=== PATIENT | female | born 1935 | race Caucasian/White ===

== ENCOUNTER → 2016-12-01 | Outpatient (CLI) | payer BC ==
[~2016-12-01] MED LIST: ATOR-22 PO; CALC0.2510 PO; CHOL1000 PO; CHOL100010 PO; CYAN3INJ IM; CYNI1000 INJ; ETHA1TAB3 PO; GABA-112 PO; HYDR200T5 PO; LISI10TA PO; MAGN250T22 PO; METH-589 PO; METO25TA56 PO; NAPR1TAB9 PO; PEGSOL8 PO; PRED-301 PO; TRAM-10 PO; [UNRECOGNIZED DRUG - OTHER] PO
[2016-12-01 13:46] LABS: BASO % 0.3 %; BASO ABS # 0.04 K/uL (0-0.2); COMPLETE YES; EOS % 0.7 %; HEMATOCRIT 35.1 % (37-47); IG% 0.5 %; LYMPH % 9.6 %; LYMPH ABS # 1.26 K/uL (1.2-3.4); MEAN CORPUSCULAR HEMOGLOBIN 27.8 pg (25-34); MEAN CORPUSCULAR HGB CONC 31.6 g/dl (32-36); MEAN PLATELET VOLUME 10.3 fL (7.4-10.4); MONO % 6.5 %; NEUT % 82.4 %; PLATELET COUNT 312 K/uL (130-400); RED BLOOD COUNT 3.99 M/uL (4.2-5.4); WHITE BLOOD COUNT 13.15 K/uL (4.8-10.8)
[2016-12-01 14:23] LABS: ALT/SGPT 21 U/L (12-78); AST/SGOT 13 U/L (15-37); BLOOD UREA NITROGEN 58 mg/dl (7-18); CARBON DIOXIDE 27 mmol/L (21-32); CHLORIDE 101 mmol/L (98-107); GLUCOSE 110 mg/dl (70-99); POTASSIUM 3.8 mmol/L (3.5-5.1); SODIUM 140 mmol/L (136-145)
[2016-12-01 14:26] LABS: ALB/GLOB RATIO 1.4 (0.9-2); ALKALINE PHOSPHATASE 58 U/L (45-117)
[2016-12-01 14:37] LABS: ESTIMATED AVERAGE GLUCOSE 123 mg/dl; HA1C FLAG Normal (Normal)
== END | disposition home or self-care (01) ==
LOC: C.LAB1850 12:23
PROVIDERS: ATTEND Internal Medicine
DX: D64.9 Anemia, unspecified (principal); E78.5 Hyperlipidemia, unspecified; R73.09 Other abnormal glucose; E53.8 Deficiency of other specified B group vitamins

== ENCOUNTER → 2017-01-07 | Outpatient (CLI) | payer BC ==
[2017-01-07 10:24] LABS: BASO % 0.4 %; BASO ABS # 0.04 K/uL (0-0.2); COMPLETE YES; EOS % 1.5 %; HEMATOCRIT 34.6 % (37-47); IG% 0.8 %; LYMPH % 25.4 %; LYMPH ABS # 2.33 K/uL (1.2-3.4); MEAN CELL VOLUME 86.7 fL (80-100); MEAN CORPUSCULAR HEMOGLOBIN 27.6 pg (25-34); MEAN CORPUSCULAR HGB CONC 31.8 g/dl (32-36); MEAN PLATELET VOLUME 9.8 fL (7.4-10.4); MONO % 10.8 %; NEUT % 61.1 %; PLATELET COUNT 299 K/uL (130-400); RED BLOOD COUNT 3.99 M/uL (4.2-5.4); WHITE BLOOD COUNT 9.17 K/uL (4.8-10.8)
[2017-01-07 10:39] LABS: CHOLESTEROL/HDL RATIO 3.1
== END | disposition home or self-care (01) ==
LOC: C.LAB1850 09:34
PROVIDERS: ATTEND Internal Medicine
DX: Z00.00 Encounter for general adult medical examination without abnormal findings (principal); E78.5 Hyperlipidemia, unspecified; D72.829 Elevated white blood cell count, unspecified; E53.8 Deficiency of other specified B group vitamins

== ENCOUNTER → 2017-03-01 | Outpatient (CLI) | payer BC ==
[~2017-03-01] MED LIST changes: +ACET-1256 PO; +BIOT1TAB5 PO; +DENO60SO INJ; +FLUO5OIL OTL; +LISI-461 PO; +LORA10TA51 PO; +MOME6000 NAE; +MULT60CA PO; +OXYC1TAB3 PO; +[UNRECOGNIZED DRUG - CODE] PO
[2017-03-01 13:28] LABS: BLOOD UREA NITROGEN 67 mg/dl (7-18); BUN/CREATININE RATIO 41.7 (10-20); CARBON DIOXIDE 27 mmol/L (21-32); CHLORIDE 102 mmol/L (98-107); GLUCOSE 97 mg/dl (70-99); POTASSIUM 3.6 mmol/L (3.5-5.1); SODIUM 140 mmol/L (136-145)
[2017-03-01 13:31] LABS: CALCIUM 9.9 mg/dl (8.5-10.1)
== END | disposition home or self-care (01) ==
LOC: C.LAB1850 11:05
PROVIDERS: ATTEND Physician Assistant
DX: I50.32 Chronic diastolic (congestive) heart failure (principal)

== ENCOUNTER 2017-03-12 01:17 | Inpatient (IN) | payer BC, OTHER ==
[2017-03-12] VITALS (53 sets, daily range): BP systolic 44–108; BP diastolic 36–63; PULSE 63–116; TEMP 36.3–36.9; O2SAT 70–100; Ht 157.5 cm; Wt 87.6 kg
[~2017-03-12] VITALS: Ht 157.5 cm; Wt 87.6 kg
[~2017-03-12 01:17] MED LIST changes: -ACET-1256 PO; -BIOT1TAB5 PO; -CHOL1000 PO; -CYNI1000 INJ; -DENO60SO INJ; -FLUO5OIL OTL; -GABA-112 PO; -HYDR200T5 PO; -LISI-461 PO; -LORA10TA51 PO; -MOME6000 NAE; -MULT60CA PO; -NAPR1TAB9 PO; -OXYC1TAB3 PO; -[UNRECOGNIZED DRUG - CODE] PO
[2017-03-12] MEDS ORDERED: FENTANYL CITRATE INJ 50 MCG/1 ML 2 ML VIAL ONE (01:48)
[2017-03-12] MEDS ORDERED: SODIUM CHLORIDE 0.9% 1000ML 1,000 ML IV STA (01:49)
[2017-03-12 01:57] LABS: BASO % 0.1 %; BASO ABS # 0.02 K/uL (0-0.2); COMPLETE YES; EOS % 0.7 %; HEMATOCRIT 41.5 % (37-47); IG% 0.3 %; LYMPH % 9.2 %; LYMPH ABS # 1.26 K/uL (1.2-3.4); MEAN CELL VOLUME 87.4 fL (80-100); MEAN CORPUSCULAR HEMOGLOBIN 27.6 pg (25-34); MEAN CORPUSCULAR HGB CONC 31.6 g/dl (32-36); MEAN PLATELET VOLUME 9.9 fL (7.4-10.4); MONO % 1.7 %; PLATELET COUNT 310 K/uL (130-400); RED BLOOD COUNT 4.75 M/uL (4.2-5.4); WHITE BLOOD COUNT 13.72 K/uL (4.8-10.8)
--- NOTE | 2017-03-12 02:06 | EMERGENCY ROOM VISIT NOTE ---
History Report prepared by Yovanny: Tenisha Peña Under the Supervision of: Dr. Ariana Tang D.O. First contact with patient: 01:40 Chief Complaint: ABDOMINAL PAIN Stated Complaint: ABDOMINAL PAIN Nursing Triage Summary: Pt started to have abdominal pain about 5 hours ago with nausea and vomiting. Pt says she just felt sick all day. Pt has history of ischemic colitis. Pt states she is not regular with BM and has to take golytley to have BM. Pt took Golytle 5 hours ago for a BM and that is when she started to have abdominal pain and spasms. Pt had vomited in ambulance. History of Present Illness The patient is an 81 year old female who presents to the Emergency Room with complaints of persistent abdominal pain that began five hours prior to arrival. She currently rates her discomfort as a 10/10 in severity. The patient describes her discomfort as a spasm. 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 Per nursing staff, the patient's last bowel movement was Tuesday which is normal. Nursing staff reports that the patient drank go lightly this evening which typically works right away, but states that she developed nausea, vomiting, and abdominal pain. The patient's son notes that the patient has a history of a cholecystectomy, back surgery, bladder prolapse, subtotal gastrectomy, and an appendectomy. The patient notes a history of diverticulosis and partial small bowel obstructions. She notes that she has not been urinating well. Source of History: patient, family (son) Onset: five hours piror to arrival Position: abdomen Symptom Intensity: 10/10 Quality: other (spasm) Timing: other (persistent) Associated Symptoms: + nausea, + urinary symptoms (not urinating well), + vomiting Review of Systems See HPI for pertinent positives & negatives. A total of 10 systems reviewed and were otherwise negative. Past Medical & Surgical Medical Problems: (1) Appendectomy (2) Benign hypertension (3) C DIFF POA (4) Cholecystectomy (5) Chronic congestive heart failure (6) Colitis (7) Colonoscopy (8) Depression (9) dextroscoliosis (10) E COLI UTI POA (11) Gastroesophageal reflux disease (12) Hyperlipidemia (13) Hysterectomy (14) orthopedic surgery (15) Osteoporosis (16) PERSONAL HISTORY OF PEPTIC ULCER DISEASE (17) Pyelonephritis (18) renal disease (19) Sepsis (20) Vertigo Family History Cancer Gallbladder disease Heart disease Hypertension Social History Smoking Status: Never Smoker Alcohol Use: none Drug Use: none Marital Status: Housing Status: lives with family Occupation Status: retired Current/Historical Medications Scheduled , 10 MG PO QID Atorvastatin (Lipitor), 20 MG PO HS Calcitriol (Rocaltrol Cap), 0.25 MCG PO QAM Cholecalciferol (Vitamin D3), 3,000 UNIT PO DAILY Cyanocobalamin (Cyanocobalamin), 1 DOSE INJ MONTHLY Ethacrynic Acid (Edecrin), 75 MG PO QAM Lisinopril (Prinivil), 10 MG PO HS Magnesium Oxide (Magnesium), 250 MG PO QAM Methimazole (Methimazole ), 2.5 MG PO QAM Metoprolol Tartrate (Lopressor) (Lopressor), 12.5 MG PO BID Peg [id number] Bicarb-Sod Ch (Golytely), 1-3 DOSE PO QPM Prednisone (Prednisone), 5 MG PO QAM Scheduled PRN Naproxen (Aleve), 220 MG PO UD PRN for Pain Tramadol (Ultram), 50 MG PO HS PRN for Pain Allergies Coded Allergies: Sulfa Drugs (Verified Allergy, Mild, SULFA-BASED DIURETICS-SEVERE RASH, 03/12/17) ALL DIURETICS, EXCEPT ALDACTONE, WHICH ARE SULFA BASED CAUSE SEVERE RASH Cefuroxime (Unverified Allergy, Unknown, INEFFECTIVE, 03/12/17) Ciprofloxacin (Unverified Allergy, Unknown, INEFFECTIVE, 03/12/17) Erythromycin (Verified Allergy, Unknown, SEVERE VOMITING, 03/12/17) Furosemide (Verified Allergy, Unknown, HIVES, SULFA ALLERGY TO LOOP DIURETICS, 03/12/17) Hydrochlorothiazide (Verified Allergy, Unknown, HIVES, 03/12/17) Levofloxacin (Unverified Allergy, Unknown, INEFFECTIVE, 03/12/17) Metoclopramide (Verified Allergy, Unknown, anxiety attacks, 03/12/17) Sulfa Antibiotics (Unverified Allergy, Unknown, HIVES AND ANAPHYLAXIS, 03/12) Meperidine (Verified Adverse Reaction, Unknown, INEFFECTIVE FOR PT, 03/12/17 ) INAFFECTIVE FOR PATIENT Physical Exam Vital Signs Date Time Temp Pulse Resp B/P Pulse Ox O2 Delivery O2 Flow Rate FiO2 03/12/17 06:10 73 18 55/38 96 Nasal Cannula 2.0 NIBP 03/12/17 05:45 77/48 03/12/17 05:42 65 22 97 Nasal Cannula 2.0 03/12/17 05:32 72/41 03/12/17 05:30 03/12/17 05:28 53/34 89 Room Air 03/12/17 05:12 70 19 03/12/17 05:07 71 03/12/17 05:00 88/55 03/12/17 04:59 89/58 03/12/17 04:57 72 18 03/12/17 04:50 70/46 03/12/17 04:45 70/47 03/12/17 04:42 71 16 03/12/17 04:40 70/51 03/12/17 04:31 84/51 03/12/17 04:27 72 25 03/12/17 04:15 78/58 03/12/17 04:12 75 95 03/12/17 04:09 76/57 03/12/17 04:02 73/43 03/12/17 03:57 75 18 95 03/12/17 03:52 73 20 94 Nasal Cannula 2.0 03/12/17 03:45 94/63 03/12/17 03:37 70 24 100 03/12/17 03:30 85/58 03/12/17 03:22 63 22 99 03/12/17 03:15 85/55 03/12/17 03:07 74 17 98 03/12/17 03:05 71/50 03/12/17 03:02 73/46 03/12/17 03:00 /55 03/12/17 02:52 73 22 03/12/17 02:47 74 16 98 Room Air 03/12/17 02:45 86/55 03/12/17 02:35 97/53 03/12/17 02:17 69 23 98 03/12/17 02:15 80/59 93 Nasal Cannula 3.0 03/12/17 02:02 69 19 86 Room Air 03/12/17 02:00 87/45 03/12/17 01:47 75 21 94 03/12/17 01:46 71/49 03/12/17 01:32 73 25 92 03/12/17 01:30 87/56 03/12/17 01:28 84/57 03/12/17 01:27 77 03/12/17 01:25 86/58 03/12/17 01:22 36.2 76 18 86/58 93 Room Air Physical Exam General: Appears very uncomfortable, diaphoretic, skin is henry and cold. HEENT: Head - normocephalic and atraumatic Pupils are equal, round, and reactive to light. Extraocular eye muscles are intact, and sclera are anicteric. Nose - moist nasal mucosa without discharge. Mouth - moist buccal mucosa. Oropharynx is nonerythematous and there is no tonsillar exudate or edema noted. Neck: Supple; no JVD, nuchal rigidity, cervical lymphadenopathy, or auscultated bruits. Heart: Regular rate and rhythm. There is a normal S1 and S2 with no murmurs, clicks, or gallops appreciated. Lungs: Clear to auscultation bilaterally with no wheezes, rales, or rhonchi. Abdomen: Guarding noted with exquisite tenderness to palpation in the epigastrium. Soft, nondistended, with good bowel sounds. There are no palpable pulsatile masses or hepatosplenomegaly. There is no rigidity, or rebound noted. Extremities: No evidence of cyanosis, clubbing, or edema. There are easily palpable peripheral pulses. Skin: warm and dry with good turgor and no rashes. Medical Decision & Procedures ER Provider Diagnostic Interpretation: CT results as stated below per my review and radiologist interpretation: CT Abdomen and Pelvis: Compared to CT abdomen and pelvis 05/18/2016. Evidence of colitis with colonic wall thickening and pericolonic edema, greatest at the splenic flexure and descending colon. There is associated free fluid. No free air. No evidence of pneumatosis or portal venous gas. The colon is distended with air and liquid stool. Colonic diverticulosis without CT evidence of acute diverticulitis. No bowel obstruction. The appendix is not reliably identified. Postoperative changes of the gastroesophageal junction. Cholecystectomy. No CT evidence of acute pancreatitis. No urinary obstruction. 5.7 centimeter right adnexal low-density mass, increased compared to prior. Followup to exclude malignancy may be useful. Multiple compression deformities in the thoracic spine. Radiologist: Paulina Larkin MD Study ready at 0337 and initial results transmitted at 0347. Laboratory Results Test 03/12/17 01:45 03/12/17 01:57 03/12/17 03:15 Creatine Kinase MB 3.0 ng/ml (0.5-3.6) Creatine Kinase MB Ratio 3.5 (0-3.0) Bedside Lactic Acid Venous 2.16 mmol/L (0.90-1.70) Urine Color DK YELLOW Urine Appearance CLEAR (CLEAR) Urine pH 6.0 (4.5-7.5) Urine Specific [place] 1.012 (1.000-1.030) Urine Protein NEG (NEG) Urine Glucose (UA) NEG (NEG) Urine Ketones NEG (NEG) Urine Occult Blood NEG (NEG) Urine Nitrite NEG (NEG) Urine Bilirubin NEG (NEG) Urine Urobilinogen NEG (NEG) Urine Leukocyte Esterase TRACE (NEG) Urine WBC (Auto) 5-10 /hpf (0-5) Urine RBC (Auto) 0-4 /hpf (0-4) Urine Hyaline Casts (Auto) 1-5 /lpf (0-5) Urine Epithelial Cells (Auto) 10-20 /lpf (0-5) Urine Bacteria (Auto) 4+ (NEG) Date/Time Source Procedure Growth Status 03/12/17 00:00 Nasal MRSA DNA Surveillance Screen - Final Specimen Negative for MRSA by DNA Probe Complete 03/12/17 06:40 Stool C.difficile Toxin B Gene (PCR) - Final Positive for C. difficile toxin B gene Complete Laboratory results per my review. Medications Administered Medications (Trade) Dose Ordered Sig/[place] Route Start Time Stop Time Status Last Admin Dose Admin Fentanyl Citrate 100 mcg 100 mcg STK-MED ONCE .ROUTE 03/12/17 01:48 03/12/17 01:49 DC 03/12/17 01:40 50 MCG Sodium Chloride 1,000 ml @ 999 mls/hr Q1H1M STAT IV 03/12/17 01:49 03/12/17 02:17 DC 03/12/17 02:03 999 MLS/HR Sodium Chloride (Nss 500ml) 500 ml @ 999 mls/hr Q31M STAT IV 03/12/17 02:16 03/12/17 02:46 DC 03/12/17 02:37 999 MLS/HR Fentanyl Citrate (Fentanyl Inj) 50 mcg NOW STAT IV 03/12/17 03:04 03/12/17 03:05 DC 03/12/17 03:45 25 MCG Ondansetron HCl 4 mg 4 mg STK-MED ONCE .ROUTE 03/12/17 04:52 03/12/17 04:53 DC 03/12/17 04:52 4 MG Sodium Chloride (Nss 500ml) 500 ml @ 999 mls/hr Q31M IV 03/12/17 06:45 03/12/17 08:04 DC 03/12/17 08:22 999 MLS/HR Tramadol HCl (Ultram Tab) 50 mg HS PRN PO 03/12/17 07:00 04/11/17 06:59 03/12/17 08:37 50 MG Procedure The patient was treated with Fentanyl Inj 100 mcg IV, Sodium Chloride 1000 ml @ 999 mls/hr IV, Sodium Chloride 500 ml @ 999 mls/hr IV, Fentanyl Inj 50 mcg IV. ECG Indication: abdominal pain Rate (beats per minute): 76 Rhythm: normal sinus Findings: no acute ischemic change, no ectopy Comparison ECG Date: 05/18/16 Change: no significant change ED Course 0142: Past medical records reviewed. The patient was evaluated in room A3. A complete history and physical exam was performed. An IV lock was initiated 0148: Ordered Fentanyl Inj 100 mcg IV. 0149: Ordered Sodium Chloride 1000 ml @ 999 mls/hr IV. 0211: I reevaluated the patient and she is still having a lot of pain. Her blood pressure is 85 mmHg systolically. The patient will go for CT scan of the abdomen/pelvis. 0216: Ordered Sodium Chloride 500 ml @ 999 mls/hr IV. 0300: I reevaluated the patient and she just arrived back from CT, but is having more pain. 0304: Ordered Fentanyl Inj 50 mcg IV. 0305: Per nursing staff the patient's blood pressure is 70 mmHg systolically. 0353: I reevaluated the patient and she is resting I discussed the exam findings with her and her family and I discussed the treatment plan. She verbalized complete understanding and agreement. She will be evaluated for further treatment. 0412: I reevaluated the patient and she is resting. 0415: I discussed the patients case with Dr. Velasco [facility]. He is going to evaluate the patient for further treatment. 0452: Per nursing staff the patient is nauseated and vomiting. Ordered Zofran Inj 4 mg IV 0633: I reevaluated the patient and she is fully awake but vomiting. Medical Decision The patient is an 81 year old female who presents to the ED with abdominal pain. Differential diagnosis includes ischemic colitis, small bowel obstruction , sepsis, hypovolemia, GI bleed. Lab interpretation: white count 13.7, stable H&H, 88% neutrophils, lactic acid 2.1, BUN 76, creatinine 1.9, normal troponin, normal LFTs, urinalysis trace leukocyte esterase 5-10 white cells 4+ bacteria. This is an 81-year-old female patient with a long history of episodes of ischemic colitis and mesenteric ischemia. She presents to the emergency department with complaints of sudden and severe onset of abdominal pain. The patient admits to having episodes of hypotension secondary to his episodes of ischemia. Her blood pressure this morning is quite low. The patient began to have continuous stooling. This was Hemoccult tested and was found to be negative. The patient has received IV crystalloid therapy to support her blood pressure but does have a history of diastolic heart failure. We discussed the possibility of starting the patient on pressors but or concerned about her cardiac standpoint. The patient is easily able to mentate through these episodes of hypotension. I discussed the case with the [facility] Hospitalist and they will evaluate the patient for further care. Consults Time Called: [phone] Consulting Physician: ANTOINETTE Gilbert Returned Call: [phone] I discussed the patients case with ANTOINETTE Gilbert. He is going to evaluate the patient for further treatment. Impression Primary Impression: Ischemic colitis Additional Impression: Hypotension Scribe Attestation The scribe's documentation has been prepared under my direction and personally reviewed by me in its entirety. I confirm that the note above accurately reflects all work, treatment, procedures, and medical decision making performed by me. Departure Information Dispostion Being Evaluated By Hospitalist Referrals RV. Mariano MD (PCP) Problem Qualifiers
[2017-03-12] MEDS ORDERED: SODIUM CHLORIDE 0.9% 500ML 500 ML IV STA (02:16)
[2017-03-12 02:20] LABS: ALT/SGPT 23 U/L (12-78); AST/SGOT 25 U/L (15-37); BLOOD UREA NITROGEN 76 mg/dl (7-18); BUN/CREATININE RATIO 39.9 (10-20); CALCIUM 9.7 mg/dl (8.5-10.1); CARBON DIOXIDE 23 mmol/L (21-32); CHLORIDE 104 mmol/L (98-107); GLUCOSE 132 mg/dl (70-99); MAGNESIUM 2.5 mg/dl (1.8-2.4); POTASSIUM 3.7 mmol/L (3.5-5.1); SODIUM 141 mmol/L (136-145)
[2017-03-12 02:26] LABS: ALKALINE PHOSPHATASE 211 U/L (45-117); CKMB/CK RATIO 3.5 (0-3.0)
[2017-03-12] MEDS ORDERED: CYNI1000 INJ (03:19)
[2017-03-12] MEDS ORDERED: CHOL1000 PO (03:20)
[2017-03-12] MEDS ORDERED: NAPR1TAB9 PO (03:20)
[2017-03-12 03:27] LABS: URINE APPEARANCE CLEAR (CLEAR); URINE BILIRUBIN NEG (NEG); URINE COLOR DK YELLOW; URINE NITRITE NEG (NEG); URINE SPECIFIC GRAVITY 1.012 (1.000-1.030); UROBILINOGEN NEG (NEG)
[2017-03-12 03:32] LABS: MANUAL MICROSCOPIC REQUIRED? NO; REVIEW REQ? NO
[2017-03-12] MEDS: FENTANYL CITRATE INJ 50 MCG/1 ML 2 ML VIAL IV STA (03:45)
[2017-03-12] MEDS ORDERED: ONDANSETRON INJ 2 MG/ML 2 ML VIAL ONE (04:52)
--- NOTE | 2017-03-12 06:19 | DIAGNOSTIC IMAGING REPORT ---
ABDOMEN AND PELVIS CT WITHOUT CONTRAST CT DOSE: 568.71 mGy.cm HISTORY: Pain. Edema. eval for ischemic colitis TECHNIQUE: Multiaxial CT images of the abdomen and pelvis were performed without contrast. COMPARISON STUDY: 05/18/2016 FINDINGS: Minimal dependent basilar atelectasis. Generalized colonic distention. Moderate pericolonic infiltrative change. No evidence of pneumatosis. Liver spleen and pancreas are grossly unremarkable. Multiple bilateral renal cysts are present. There is no evidence for hydronephrosis. Bladder suspension procedure. Distended bowel loop versus a cystic process in the region of the right ovary. This measures 5.1 cm. Chronic sigmoid diverticulosis. IMPRESSION: 1. Generalized colonic colitis findings.. 2. No evidence for abscess collection or obstruction. 3. Multiple bilateral renal cysts. 4. Distended dissection of bowel versus possible 5 cm right ovarian cystic mass. This is considered abnormal for age with pelvic ultrasonography is suggested. This is performed previously dated 05/18/2016, although the cystic process is slightly increased in prominence Electronically signed by: Donte Mar M.D. 03/12/2017 6:18 AM Dictated Date/Time: 03/12/2017 6:14 AM
[2017-03-12] MEDS ORDERED: SODIUM CHLORIDE 0.9% 500ML 500 ML IV SCH (06:45)
[2017-03-12] MEDS ORDERED: HydrALAZINE HCL 20 MG/ML VIAL IV PRN (07:15)
[2017-03-12] MEDS ORDERED: METOPROLOL TARTRATE 1 MG/ML VIAL IV PRN (07:15)
[2017-03-12] MEDS ORDERED: MoRPHine SULFATE 4 MG/ML 1 ML CARP\\VIAL IV PRN (07:15)
[2017-03-12] MEDS ORDERED: LORAZEPAM 2 MG/ML 1 ML VIAL IV PRN ×2 (07:15)
[2017-03-12] MEDS: ACETAMINOPHEN 325 MG TAB PO PRN (08:26)
--- NOTE | 2017-03-12 08:26 | HISTORY & PHYSICAL EXAMINATION ---
DATE OF ADMISSION: 03/12/2017 DIAGNOSIS: Sepsis, possible gastrointestinal source. HISTORY: Ms. Phoenix is an 81-year-old female who suffers from recurrent bouts of ischemic colitis. The patient also has significant gastroparesis to the point where she only has 2 bowel movements in a week and takes 1-3 glasses of GoLYTELY nightly. Reportedly, the patient did not have a bowel movement for 6 days. The patient reportedly took her GoLYTELY as usual last evening, she developed abdominal pain which is diffuse, crampy in nature, and then began to have sweats, chills, dizziness and weakness, and began producing voluminous diarrhea. In the Emergency Department, the patient had an elevated lactic acid at 2.1 and elevated white blood cell count of 13. She was hypotensive with a blood pressure of 53/34 and hypoxic on room air at 89%. The patient was recommended for admission for the possibility of colitis and sepsis. The patient states that she up until this week has been in her normal usual bowel pattern. She follows with Dr. Bowling. Her biggest complaint currently is abdominal discomfort which is diffuse. She did have a CT scan of her abdomen and pelvis on presentation, which did not show any evidence of perforated viscus, did show generalized colitis, no abscess. There is also a 5 cm right ovarian cystic mass that was seen, which was also seen on a previous study but looks like it has increased in prominence. This could also be a distended loop of bowel. PAST MEDICAL HISTORY: Previous history of C. diff, hypertension, depression, GERD, peptic ulcer disease, dyslipidemia, previous pyelonephritis, previous vertigo, chronic kidney disease stage III, previous appendectomy, cholecystectomy and hysterectomy. MEDICATIONS: On presentation are atorvastatin 20 a day, Rocaltrol 0.25 a day, vitamin D 3000 units a day, vitamin B12 1000 a day, edecrin 25 a day, lisinopril 10 at bedtime, methimazole 2.5 a day, metoprolol 12.5 b.i.d., prednisone 5 a day, tramadol 50 at bedtime p.r.n., domperidone 4 times a day, magnesium oxide 250 a day, naproxen as needed, and GoLYTELY as mentioned. SOCIAL HISTORY: No smoking or drinking. She is . FAMILY HISTORY: Positive for cancer, heart disease, hypertension and gallbladder disease. REVIEW OF SYSTEMS: Ten systems are reviewed. Pertinent negatives outside of the HPI include negative dysuria and hematuria. Otherwise, 10 systems are reviewed, and if not mentioned, are considered negative. PHYSICAL EXAMINATION: GENERAL: She is in mild distress. VITAL SIGNS: Temperature, she is hypothermic at 36.2. Heart rate 73 but she is on a beta kay. As mentioned, respiratory rate is 22, BP low, oxygen sats are low. SKIN: She has got poor color and appears pale. HEENT: She has dry mucous membranes. PERRL, EOMI. Oropharynx is otherwise unremarkable. NECK: Without lymphadenopathy. Trachea is midline. HEART: Distant, regular. There are no murmurs. LUNGS: Clear with decreased breath sounds at the bases. No wheezes or focal air loss. ABDOMEN: With hypoactive bowel sounds. She is not rigid. She is guarding. She is tender diffusely. There is no rebound. EXTREMITIES: Without cyanosis, clubbing or edema. SKIN: Without lesions, growth, bruises or bleeding. NEUROLOGIC: She is awake, alert and appropriate. Cranial nerves II-XII are intact. She has equal symmetrical strength and sensation, although globally reduced to 4/5. LABORATORY DATA: White count 13, H\T\H 13 and 41, platelet count 310. BUN and creatinine are 76 and 1.9. It appears that her baseline creatinine is around 1.6. She does have acute on chronic renal failure. As mentioned, mildly elevated lactic acid. Glucose 132. Magnesium 2.5. Bili and LFTs with the exception of minor alkaline phosphatase elevation are unremarkable. Troponin is negative. Urine shows trace leukocyte esterase. As mentioned, CT scan was performed. There is an EKG which shows sinus rhythm without any acute ST- or T-wave changes. ASSESSMENT: An 81-year-old female with chronic bowel issues, who presents with abdominal pain, diarrhea, hypotension, elevated lactic acid, and elevated white count. The assessment is going to be sepsis from possible gastrointestinal source. PLAN: Since the patient has a history of C. diff, this will be collected, but we will start vancomycin orally. We will also begin Zosyn given her ALLERGIES TO QUINOLONES. Blood cultures will be obtained. Stool cultures will be obtained. With regard to her sepsis, she has been volume resuscitated in the ER. We will maintain IV fluids with potassium. We will recheck a lactic acid around 11:00 a.m. If it is elevated, we will continue fluid boluses. We may survey her abdomen if her clinical course deteriorates with a plain film to be sure that she does not have any perforated viscus. With regard to her hypertension and blood pressure medications, these are currently held. We will consider restarting her beta kay if her blood pressure stabilizes; if not, will have p.r.n. metoprolol for use. With regard to her chronic steroid suppressions, she gives a history of having possibly a scleroderma. She will be given stress dose steroids. DVT prevention is renal dose Lovenox. If need be, we will obtain GI consult with Dr. Bowling's service and surgical consult.
[2017-03-12] MEDS ORDERED: PIPERACILL/TAZOBAC IV 3.375 GM in DEXTROSE 5% 100ML 100 ML IV ONE (08:30)
[2017-03-12] MEDS ORDERED: NSS + 20MEQ KCL 1000ML 1,000 ML IV SCH (08:30)
[2017-03-12] MEDS: TRAMADOL HCL 50 MG TAB PO PRN (08:37)
[2017-03-12] MEDS: METHIMAZOLE 5 MG TAB PO SCH (08:39)
[2017-03-12] MEDS: RASPBERRY SYRUP 5 ML UDP PO SCH ×4 (08:39→20:25)
[2017-03-12] MEDS: ONDANSETRON INJ 2 MG/ML 2 ML VIAL IV PRN ×2 (08:47→15:26)
[2017-03-12] MEDS: CALCITRIOL 0.25 MCG CAP PO SCH (09:00)
[2017-03-12] MEDS ORDERED: HYDROCORTISONE IV 50 MG in SYRINGE 0 ML IV SCH (09:00)
[2017-03-12] MEDS ORDERED: METOPROLOL TARTRATE 25 MG TAB PO SCH (09:00)
[2017-03-12] MEDS ORDERED: MAGNESIUM OXIDE 400 MG TAB PO SCH (09:00)
[2017-03-12] MEDS ORDERED: ETHACRYNIC ACID 25 MG TAB PO SCH (09:00)
[2017-03-12] MEDS: VANCOMYCIN HCL 125 MG/2.5ML SOLN PO SCH ×5 (09:00→20:24)
[2017-03-12] MEDS ORDERED: SODIUM CHLORIDE 0.9% 1000ML 1,000 ML IV ONE (10:00)
[2017-03-12] MEDS ORDERED: NURSING VERBAL MED ORDER ONE ×4 (10:15→23:30)
[2017-03-12] MEDS ORDERED: PIPERACILL/TAZOBAC CONSULT ACTIVE PRN (10:45)
[2017-03-12] MEDS ORDERED: ALBUMIN HUMAN 25% 12.5 GM/50 ML VIAL IV ONE ×3 (11:00→17:30)
[2017-03-12 11:02] LABS: INR 1.2 (0.9-1.1); PARTIAL THROMBOPLASTIN RATIO 1.2; PROTHROMBIN TIME (PATIENT) 12.6 SECONDS (9.0-12.0)
[2017-03-12] MEDS: METRONIDAZOLE / NSS 500 MG in PREMIXED NSS 100 ML IV SCH ×2 (11:08→17:37)
[2017-03-12] MEDS ORDERED: ENOXAPARIN 30 MG/0.3 ML SYR SC SCH (12:00)
[2017-03-12] MEDS ORDERED: SODIUM CHLORIDE 0.9% 1000ML 1,000 ML IV SCH (12:15)
[2017-03-12] MEDS ORDERED: NOREPINEPHRINE BIT INJ 8 MG in DEXTROSE 5% 500ML 500 ML IV PRN (12:59)
[2017-03-12 13:53] LABS: BLOOD UREA NITROGEN 75 mg/dl (7-18); BUN/CREATININE RATIO 32.4 (10-20); CALCIUM 7.4 mg/dl (8.5-10.1); CARBON DIOXIDE 20 mmol/L (21-32); CHLORIDE 114 mmol/L (98-107); GLUCOSE 111 mg/dl (70-99); PHOSPHORUS 2.3 mg/dl (2.5-4.9); POTASSIUM 3.6 mmol/L (3.5-5.1); SODIUM 145 mmol/L (136-145)
[2017-03-12] MEDS ORDERED: PIPERACILL/TAZOBAC IV 3.375 GM in DEXTROSE 5% 100ML 100 ML IV SCH (14:00)
[2017-03-12] MEDS ORDERED: PIPERACILL/TAZOBAC IV 3.375 GM in DEXTROSE 5% 100ML IV SCH (14:00)
--- NOTE | 2017-03-12 14:06 | CRITICAL CARE CONSULTATION ---
DATE OF CONSULTATION: 03/12/2017 DATE OF CONSULTATION: 03/12/2017. CHIEF COMPLAINT: Abdominal pain. HISTORY OF PRESENT ILLNESS: The patient is an 81-year-old woman with multiple medical problems including but not limited to a history of C. diff colitis as well as ischemic colitis who presented to the Emergency Department last night with complaints of abdominal pain. She also has a history of irritable bowel syndrome and gastroparesis status post a subtotal gastrectomy with vagotomy in 1980 secondary to gastric ulcers. She reports that she has severe gastroparesis and she takes GoLYTELY at least every other day in order to move her bowels. She tells me that it takes her 8-10 hours to "empty her bowels" and that she will sit on the toilet for hour at a time over the span of 8-10 hours. Normally she will have a little bit of diarrhea at a time and once it stops she feels like she has emptied her bowels. She reports she goes thorough this process several times per week. On Tuesday she skipped her GoLYTELY because she had many doctors' appointments that day. Yesterday she took her GoLYTELY but it did not produce any results. She started to have constant abdominal pain from the right breast inferiorly and tells me she feels like she is "being ripped open." She says it is a burning pain 10/10, constant. She did not have any nausea or vomiting until her transport to the hospital and she tells me she has vomited 8-10 times since then. Her started to move her bowels while in the Emergency Department and she believes was brown. She has been vomiting brown material as well. She ate well yesterday and denies any fevers or chills. She has not recently been on antibiotics, but she takes prednisone 5 mg per day and has done so for the past 2 years. She denies chest pain, shortness of breath presently. She denies history of cardiac disease other than diastolic dysfunction, grade 1. In the Emergency Department, she was evaluated with a CT scan of the abdomen, which showed distended section of bowel versus possible 5 cm right ovarian cystic mass, and generalized colonic colitis findings. She was given 1.5 liters of IV fluid and fentanyl 100 mcg. She was hypotensive in the Emergency Department and initially admitted to telemetry but was being cared for in the ICU on telemetry status. She was given 2 more liters of IV fluid and remained hypotensive. Therefore, she was changed to ICU status and I was consulted. I have given her 25 grams of albumin and started another liter of IV fluid. 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 C. diff x3, osteoporosis, diverticulosis, vitamin D deficiency, gastroparesis, right ovarian cyst, pulmonary nodules, rheumatic fever, hyperthyroidism, hyperparathyroidism, hyperlipidemia, cataracts, chronic kidney disease stage IV, chronic nausea, chronic back pain secondary to scoliosis for which she takes tramadol 3 times per week, lymphedema of the right leg, paroxysmal supraventricular tachycardia, prolapsed bladder, recently fitted with a pessary around a week ago, renal cysts, thyroid nodules, spinal stenosis, vitamin B12 deficiency, hearing loss. PAST SURGICAL HISTORY: Status post appendectomy, cholecystectomy, spinal surgery x3, subtotal gastrectomy with vagotomy 1980, hysterectomy, vaginal repair, thyroid nodule, biopsies, breast biopsy. HOME MEDICATIONS: Prednisone 5 mg daily, atorvastatin 20 mg daily, Rocaltrol 0.25 mg daily, vitamin D 3000 units daily, vitamin B12 1000 mcg daily, Excedrin 25 mg daily, lisinopril 10 mg at bedtime, methimazole 2.5 mg daily, metoprolol 12.5 mg b.i.d., tramadol 50 mg at bedtime about 3 times per week p.r.n., domperidone q.i.d., magnesium oxide 250 mg p.o. daily, Naprosyn p.r.n., GoLYTELY prn. ALLERGIES: Sulfa drugs and antibiotics, cefuroxime, Cipro, Erythromycin, Furosemide, Hydrochlorothiazide, Levofloxacin, Meperidine, Reglan SOCIAL HISTORY: She is and lives with her son who is 49 years old and has a history of epilepsy. She quit smoking in 1997 and does not drink any alcohol. 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 FAMILY HISTORY: Significant for mother with rectal cancer, sister with ALS, father and sister with hypertension and a son with epilepsy. REVIEW OF SYSTEMS: She reports visual problems, trouble hearing, dry mouth. Denies trouble swallowing, intermittent nausea, intermittent shortness of breath, intermittent abdominal pain, intermittent lower extremity swelling, intermittent rectal bleeding, joint pain. She says she can stand for 2 minutes at a time and then has to sit down because her spine collapses on itself. She uses a seated walker. She does not leave the house much other than to go for doctors' visits. She denies hematemesis. She denies recent falls. Generally her review of systems is positive. PHYSICAL EXAMINATION: VITAL SIGNS: Temperature is pending. Heart rate 69, respiratory rate 16-28, blood pressure 83/63, oxygen saturation 97% on 2 liters nasal cannula. HEAD, EYES, EARS, NOSE, AND THROAT: Pupils are equally round and reactive to light. There is no scleral icterus. Oral mucosa is pale and dry. She wears an upper plate. Posterior pharynx is clear. NECK: Veins are flat. No adenopathy. LUNGS: Clear to auscultation bilaterally. No rales, rhonchi or wheezes. HEART: Regular rate and rhythm. ABDOMEN: Diffusely quite tender. She is guarding. Hypoactive bowel sounds. EXTREMITIES: Are a bit cool, distal pulses are 1+ and difficult to palpate. She is not mottled. Capillary refill is satisfactory. NEUROLOGIC: She is awake, alert, talkative and moves all 4 extremities. LABORATORY DATA: White blood cell count 13.72, hemoglobin 13.1, hematocrit 41.5, platelets 310. Sodium 141, potassium 3.7, chloride 104, CO2 23, BUN 76, creatinine 1.9. Blood sugar 132. Initial lactic acid 2.16, followup 4.7, magnesium 2.5, total bilirubin 0.9, direct bilirubin 0.3, alkaline phosphatase 211. Albumin 3.8. Troponin I 0.015. PT 12.6, INR 1.2, PTT 30.8. Urinalysis is significant for trace leukocyte esterase, 5-10 white cells, 10-20 epithelial cells and 4+ bacteria. PRESENT MEDICATIONS: Acetaminophen, atorvastatin, rocaltrol, Lovenox, hydrocortisone, methimazole, Flagyl, morphine, Zofran, Zosyn, normal saline with potassium, raspberry syrup, vancomycin, tramadol. EKG done in the Emergency Department shows normal sinus rhythm, poor R-wave progression, nonspecific ST-T wave changes. C. diff assay is positive. IMPRESSION: 1. Clostridium difficile colitis with hypovolemia and septic shock. 2. Acute kidney injury on chronic kidney disease. 3. Worsening lactic acidosis. 4. Diarrhea with nausea and vomiting. 5. History of hypertension. 6. History of hyperthyroidism. 7. Right ovarian cyst, likely seen on CT scan, but more prominent than previously described. 8. History of grade 1 diastolic dysfunction. 9. Steroid dependence. PLAN: NEUROLOGIC: Unfortunately, due to her hypotension, I am reluctant to treat her pain very aggressively at this point. She has morphine 2 mg p.r.n. ordered. As long as she is not moving around she seems to be a bit more comfortable. PULMONARY: Watch for development of hypoxemia and pulmonary edema. I think even though she has already had 4 liters of IV fluids she may still be dry. CARDIOVASCULAR: Continue aggressive volume resuscitation, I will give her some 25% albumin as well. I will also change her IV fluids to a higher rate and consider normosol verses half normal saline. I expect she may be hyperchloremic. INFECTIOUS DISEASE: Continue Zosyn. She was unable to take the oral vancomycin, so I started IV Flagyl. With the amount of diarrhea that she is having I do not expect vancomycin enemas to be effective. GASTROENTEROLOGY: Maintain n.p.o. and consider NG tube if she continues to be nauseated. Consider GI and surgical consult. I will recheck her lactate in several hours. RENAL: Urine output is starting to leaf size picker. Avoid nephrotoxins and appropriately dose medications. Check electrolytes and creatinine later today. HEMATOLOGY: Change Lovenox to subcutaneous heparin b.i.d. ENDOCRINE: Increase hydrocortisone to 75 mg IV q. 6 hours. Continue methimazole. Please call me with any questions or concerns. Her son is her power of city attorney. I will update him when I see him. Critical care time 1 hour. BRYSOND
[2017-03-12] MEDS: PIPERACILL/TAZOBAC IV 4.5 GM in DEXTROSE 5% 100ML IV SCH ×2 (14:09→20:27)
[2017-03-12] MEDS ORDERED: CALCIUM GLUCONATE 10% 1,000 MG in SODIUM CHLORIDE 0.9% 50ML 50 ML IV ONE (14:45)
[2017-03-12] MEDS: SODIUM CHLORIDE 0.45% 1000ML 1,000 ML IV SCH ×2 (15:23→20:25)
[2017-03-12] MEDS: ACETAMINOPHEN IV 650 MG in EMPTY BAG 0 ML IV PRN (16:14)
[2017-03-12] MEDS: HYDROCORTISONE IV 75 MG in SYRINGE 0 ML IV SCH ×2 (16:14→20:26)
[2017-03-12 19:11] LABS: BLOOD UREA NITROGEN 71 mg/dl (7-18); BUN/CREATININE RATIO 29.7 (10-20); CALCIUM 7.4 mg/dl (8.5-10.1); CARBON DIOXIDE 19 mmol/L (21-32); CHLORIDE 109 mmol/L (98-107); GLUCOSE 123 mg/dl (70-99); POTASSIUM 3.8 mmol/L (3.5-5.1); SODIUM 144 mmol/L (136-145)
[2017-03-12] MEDS: HEPARIN SOD 5000 UNIT/0.5 ML CARP SQ SCH (20:26)
[2017-03-12] MEDS ORDERED: ATORVASTATIN 20 MG TAB PO SCH (21:00)
[2017-03-12] MEDS ORDERED: LISINOPRIL 10 MG TAB PO SCH ×2 (21:00)
[2017-03-12] MEDS ORDERED: METHIMAZOLE 5 MG TAB PO STA (22:50)
[2017-03-12 23:02] LABS: MAGNESIUM 1.7 mg/dl (1.8-2.4)
[2017-03-12 23:03] LABS: PHOSPHORUS 3.6 mg/dl (2.5-4.9)
[2017-03-12] MEDS: SODIUM BICARBONATE 8.4% INJ 50 MEQ in SODIUM CHLORIDE 0.45% 1000ML 1,000 ML IV SCH (23:04)
[2017-03-12] MEDS ORDERED: MAGNESIUM SULFATE 1GM / D5W 1 GM in PREMIXED IN D5W 100 ML IV STA (23:30)
[2017-03-13] VITALS (38 sets, daily range): BP systolic 82–122; BP diastolic 44–72; PULSE 69–104; TEMP 36.4–37.1; O2SAT 92–100
[2017-03-13] MEDS: METRONIDAZOLE / NSS 500 MG in PREMIXED NSS 100 ML IV SCH ×3 (01:27→17:50)
[2017-03-13] MEDS: HYDROCORTISONE IV 75 MG in SYRINGE 0 ML IV SCH ×3 (03:56→16:10)
[2017-03-13] MEDS: ACETAMINOPHEN IV 650 MG in EMPTY BAG 0 ML IV PRN ×2 (04:08→18:08)
[2017-03-13] MEDS: PIPERACILL/TAZOBAC IV 4.5 GM in DEXTROSE 5% 100ML IV SCH ×2 (05:01→12:22)
[2017-03-13] MEDS: SODIUM BICARBONATE 8.4% INJ 50 MEQ in SODIUM CHLORIDE 0.45% 1000ML 1,000 ML IV SCH ×2 (05:03→15:27)
[2017-03-13 05:19] LABS: HEMATOCRIT 30.1 % (37-47); MEAN CELL VOLUME 86.2 fL (80-100); MEAN CORPUSCULAR HEMOGLOBIN 26.6 pg (25-34); MEAN CORPUSCULAR HGB CONC 30.9 g/dl (32-36); MEAN PLATELET VOLUME 9.3 fL (7.4-10.4); PLATELET COUNT 211 K/uL (130-400); RED BLOOD COUNT 3.49 M/uL (4.2-5.4); WHITE BLOOD COUNT 12.13 K/uL (4.8-10.8)
[2017-03-13 05:27] LABS: CALCIUM 7.1 mg/dl (8.5-10.1); CREATININE 2.3 mg/dl (0.60-1.20); MAGNESIUM 2.1 mg/dl (1.8-2.4); POTASSIUM 4.1 mmol/L (3.5-5.1)
[2017-03-13 05:40] LABS: COMPLETE YES; ECHINOCYTES 2+; IG% 0.4 %; LYMPH ABS # 0.61 K/uL (1.2-3.4); MONO % 5.1 %; NEUT % 89.5 %; VACUOLIZATION 1+
[2017-03-13 05:45] LABS: PHOSPHORUS 4.1 mg/dl (2.5-4.9)
--- NOTE | 2017-03-13 07:31 | DIAGNOSTIC IMAGING REPORT ---
ABDOMEN 2VIEW W/PA CHEST RTN CLINICAL HISTORY: Abdominal distention. Colitis. COMPARISON STUDY: 08/29/2014 FINDINGS: There are low lung volumes. There is a left-sided PICC catheter the tip of which projects at superior vena cava. There is mild vascular prominence which may be accentuated by the poor inspiration. There are linear right basilar opacities, likely atelectatic. No free air is visualized.] Supine views of the abdomen reveal mild gaseous prominence of the bowel. There are multiple scattered air-fluid levels. The findings are consistent with an ileus/enteritis or low-grade bowel obstruction. IMPRESSION: 1. Low lung volumes 2. No free air 3. Mild gaseous prominence of the bowel, consistent with either an ileus/enteritis or low-grade bowel obstruction. Clinical and imaging follow-up is recommended. Electronically signed by: Virgilio Galarza M.D. 03/13/2017 7:30 AM Dictated Date/Time: 03/13/2017 7:22 AM
[2017-03-13] MEDS ORDERED: CALCIUM CHLORIDE 10% 10 ML SYR IV STA (07:58)
[2017-03-13] MEDS ORDERED: CALCIUM CHLORIDE 10% 1,000 MG in SODIUM CHLORIDE 0.9% 50ML 50 ML IV ONE (08:30)
[2017-03-13] MEDS ORDERED: MoRPHine SULFATE 2 MG/ML CARP IV ONE (08:30)
[2017-03-13 08:37] LABS: ISTAT ALLEN TEST Pass; ISTAT ARTERIAL BLOOD GAS HCO3 18 meq/L (19-24); ISTAT ARTERIAL BLOOD GAS PCO2 33 mmHg (35-46); ISTAT ARTERIAL BLOOD GAS PO2 < 32 mmHg (80-95); ISTAT ARTERIAL BLOOD GAS pH 7.34 (7.35-7.45); ISTAT CARBON DIOXIDE 19 mEq/l (24-31); ISTAT DELIVERY SYSTEM Cannula; ISTAT SITE R Radial
[2017-03-13 08:37] LABS: ISTAT ALLEN TEST Pass; ISTAT ARTERIAL BLOOD GAS HCO3 17 meq/L (19-24); ISTAT ARTERIAL BLOOD GAS PCO2 29 mmHg (35-46); ISTAT ARTERIAL BLOOD GAS PO2 77 mmHg (80-95); ISTAT ARTERIAL BLOOD GAS pH 7.38 (7.35-7.45); ISTAT CARBON DIOXIDE 18 mEq/l (24-31); ISTAT DELIVERY SYSTEM Cannula; ISTAT SITE L Radial
[2017-03-13] MEDS: RASPBERRY SYRUP 5 ML UDP PO SCH ×4 (08:39→20:12)
[2017-03-13] MEDS: METHIMAZOLE 5 MG TAB PO SCH (08:39)
[2017-03-13] MEDS: VANCOMYCIN HCL 125 MG/2.5ML SOLN PO SCH ×4 (08:39→20:13)
[2017-03-13] MEDS: CALCITRIOL 0.25 MCG CAP PO SCH (08:40)
[2017-03-13] MEDS: HEPARIN SOD 5000 UNIT/0.5 ML CARP SQ SCH ×2 (09:10→22:58)
--- NOTE | 2017-03-13 09:35 | ECHOCARDIOGRAM REPORT ---
*NOTICE TO RECEIVING [employer]Y This information is strictly Confidential and protected under [place] law. [place] law prohibits you from making any further disclosure of this information unless further disclosure is expressly permitted by the written consent of the person to whom it pertains or is authorized by law. A general authorization for the release of medical or other information is not sufficient for this purpose. Hospital accepts no responsibility if the information is made available to any other person, INCLUDING THE PATIENT. Interpretation Summary * Name: EM LIM Study Date: 03/13/2017 07:36 AM BP: 82/49 mmHg * [facility]\S\E103\S\1 HR: 75 * : 1935 (M/d/yyyy) Gender: Female Height: 62 in * Age: 81 yrs Ethnicity: [place] Weight: 188 lb * Ordering Physician: Olga Barrientos * Referring Physician: Self, Referred * Performed By: Luci Fajardo RDCS * * Reason For Study: Atrial fibrillation * BSA: 1.9 m2 * -- Conclusions -- * The left ventricle is normal in size. * There is normal left ventricular wall thickness. * Ejection Fraction = 65-70%. * Left ventricular systolic function is normal. * The left ventricular wall motion is normal. * The right ventricle is normal in size and function. * The right ventricular systolic function is normal as assessed by tricuspid annular plane systolic excursion (TAPSE) (normal >1.5 cm). * The left atrium is mildly dilated. * Right ventricular systolic pressure is normal. * Dilated inferior vena cava with reduced collapsability with sniff indicates an elevated right atrial pressure of 15 mmHg * Grade I diastolic dysfunction, (abnormal relaxation pattern). Procedure Details * A complete two-dimensional transthoracic echocardiogram was performed (2D, M-mode, Doppler and color flow Doppler). Left Ventricle * The left ventricle is normal in size. * There is normal left ventricular wall thickness. * Ejection Fraction = 65-70%. * Left ventricular systolic function is normal. * The left ventricular wall motion is normal. Right Ventricle * The right ventricle is normal in size and function. * The right ventricular systolic function is normal as assessed by tricuspid annular plane systolic excursion (TAPSE) (normal >1.5 cm). Atria * The left atrium is mildly dilated. * Right atrial size is normal. Mitral Valve * The mitral valve is grossly normal. * There is mild mitral regurgitation. Tricuspid Valve * The tricuspid valve is not well visualized, but is grossly normal. * There is mild tricuspid regurgitation. * Right ventricular systolic pressure is normal. Pulmonic Valve * The pulmonic valve is not well seen, but is grossly normal. Great Vessels * The aortic root is normal size. Pericardium/Pleural * There is no pericardial effusion. Great Vessels * Dilated inferior vena cava with reduced collapsability with sniff indicates an elevated right atrial pressure of 15 mmHg Left Ventricular Diastolic Function * Grade I diastolic dysfunction, (abnormal relaxation pattern). MMode 2D Measurements and Calculations IVSd 0.86 cm LVIDd 3.9 cm LVIDs 2.4 cm LVPWd 1.0 cm IVS/LVPW 0.85 FS 40.0 % EDV(Teich) 67.3 ml ESV(Teich) 19.4 ml EF(Teich) 71.2 % EDV(cubed) 60.9 ml ESV(cubed) 13.2 ml EF(cubed) 78.3 % LV mass(C)d 111.8 grams LV mass(C)dI 60.0 grams/m\S\2 CO(Teich) 3.6 l/min CI(Teich) 2.0 l/min/m\S\2 SV(Teich) 47.9 ml SI(Teich) 25.7 ml/m\S\2 CO(cubed) 3.6 l/min CI(cubed) 1.9 l/min/m\S\2 SV(cubed) 47.7 ml SI(cubed) 25.6 ml/m\S\2 Ao root diam 2.9 cm Ao root area 6.4 cm\S\2 ACS 1.4 cm LA dimension 3.4 cm asc Aorta Diam 3.4 cm LA/Ao 1.2 LVOT diam 1.9 cm LVOT area 2.7 cm\S\2 LVAd ap4 20.1 cm\S\2 LVLd ap4 6.4 cm EDV(MOD-sp4) 51.9 ml LVAs ap4 9.5 cm\S\2 LVLs ap4 4.7 cm ESV(MOD-sp4) 16.0 ml EF(MOD-sp4) 69.2 % LVAd ap2 20.4 cm\S\2 LVLd ap2 6.7 cm EDV(MOD-sp2) 51.3 ml LVAs ap2 12.0 cm\S\2 LVLs ap2 6.0 cm ESV(MOD-sp2) 20.5 ml EF(MOD-sp2) 60.0 % CO(MOD-sp4) 2.7 l/min CI(MOD-sp4) 1.5 l/min/m\S\2 SV(MOD-sp4) 35.9 ml SI(MOD-sp4) 19.3 ml/m\S\2 CO(MOD-sp2) 2.3 l/min CI(MOD-sp2) 1.3 l/min/m\S\2 SV(MOD-sp2) 30.8 ml SI(MOD-sp2) 16.5 ml/m\S\2 Doppler Measurements and Calculations MV E max samantha 96.5 cm/sec MV A max samantha 95.1 cm/sec MV E/A 1.0 MV dec time 0.17 sec Ao V2 max 172.4 cm/sec Ao max PG 11.9 mmHg Ao max PG (full) 8.0 mmHg MCKINLEY(V,A) 1.5 cm\S\2 MCKINLEY(V,D) 1.5 cm\S\2 LV V1 max PG 3.8 mmHg LV V1 max 98.0 cm/sec PA V2 max 97.7 cm/sec PA max PG 3.8 mmHg PA acc slope 475.0 cm/sec\S\2 PA acc time 0.10 sec TR max samantha 188.7 cm/sec PA pr(Accel) 33.1 mmHg
--- NOTE | 2017-03-13 10:41 | CRITICAL CARE PROGRESS NOTE ---
DATE: 03/13/2017 SUBJECTIVE: This is an 81-year-old woman with multiple medical problems, admitted to the intensive care unit yesterday secondary to abdominal pain, C. diff colitis, hypovolemia and sepsis. Overnight last night, she became tachycardic to a rate of 120 beats per minute and EKG revealed junctional tachycardia. She converted back to normal sinus rhythm while I was on the phone talking to the MARINE ARCHITECT. She was also seen by the Dr. Bridges who reviewed the EKG. She continues to have liquid bowel movements and had 4 overnight. She is nauseated, but able to take her oral vancomycin. She continues to complain of abdominal pain and received morphine 1 mg this morning. If she is not stimulated, she seems to rest relatively well. She remains on a Levophed infusion and 0.06 mcg per kilogram per minute. PHYSICAL EXAMINATION: VITAL SIGNS: Maximum temperature 36.7, heart rate 75-80, respiratory rate 22-37, blood pressure 82-115/40-50, and oxygen saturation 97% on 2 liters nasal cannula. 24-hour fluid balance is positive 8.8 liters. This does not account for the profuse watery bowel movements that are not quantified. Her weight is 85.5 kilograms. Weight yesterday was 85.4 kilograms. GENERAL: She is awake and mildly tachypneic. She is talkative and follows commands. LUNGS: Have bibasilar rales with poor inspiratory effort. No rhonchi or wheezes. HEART: Regular rate and rhythm. ABDOMEN: Soft, diffusely tender, and hypoactive bowel sounds. There is guarding. EXTREMITIES: Warm with 1+ radial and dorsalis pedis pulses. No significant edema. LABORATORY DATA: White blood cell count 12.13, hemoglobin 9.3, hematocrit 30.1, and platelets 211. ABG, pH 7.38, pCO2 of 29, pO2 of 77, and HCO3 of 17. Sodium 142, potassium 4.1, chloride 109, CO2 of 22, BUN 64, creatinine 2.3, blood sugar 114, and calcium 7.1. Albumin 3.1, direct bilirubin 0.3, alkaline phosphatase 238, magnesium 2.1, and phosphorus 4.1. Lactic acid 1.8. Blood cultures from /6 pending. C. diff /6 positive. Stool culture pending. Portable chest x-ray and abdominal x-ray from this morning are reviewed. She has bibasilar atelectasis with low lung volumes. No free air identified. Mild gaseous prominence of the bowel consistent with either ileus or low grade bowel obstruction. MEDICATIONS AND INFUSIONS: Acetaminophen, Lipitor, Rocaltrol, subcutaneous heparin, hydrocortisone 75 mg IV q. 6 hours, methimazole, Flagyl day #2, morphine, norepinephrine, Zofran, Zosyn day #2, half normal saline with 1 amp of sodium bicarbonate per liter at 150 mL per hour, tramadol, and oral vancomycin day #2. IMAGING STUDIES: Echocardiogram done today revealed normal left ventricular wall thickness and ejection fraction 65%-70%. No wall motion abnormalities. Grade 1 diastolic dysfunction. EKG from last night was reviewed. IMPRESSION: 1. Clostridium difficile colitis with hypovolemia and septic shock, improving. 2. Acute kidney injury on chronic kidney disease, her creatinine seems to have stabilized. She likely has ATN from hypotension and sepsis. 3. Lactic acidosis, improved. 4. Diarrhea with nausea and vomiting secondary to #1, improving 5. Junctional tachycardia, now in normal sinus rhythm. 6. History of hypertension. 7. History of hyperthyroidism. 8. Grade 1 diastolic dysfunction. 9. Steroid dependent mixed connective tissue disorder, on hydrocortisone presently. 10. Osteoporosis and scoliosis. 11. Acute anemia, possibly secondary to dilution. No signs of active bleeding. PLAN: NEUROLOGIC: Continue morphine and IV acetaminophen for pain. PULMONARY: She remains on 2 liters nasal cannula. She would benefit from an incentive spirometer secondary to atelectasis, but I do not think she will use it secondary to her abdominal discomfort. If she needs diuresis, she will require ethacrynic acid secondary to her SULFA ALLERGY. I have called the pharmacy and they have the IV form in stock. CARDIOVASCULAR: Decrease IV fluids to 75 mL per hour - continue with bicarb in fluids. Wean the Levophed for MAP of 65. I discussed placing an arterial line with her son yesterday and between her son, the patient and myself, we have decided to hold off on that. We may need to readdress that later today if she continues to require vasopressors. She has a left upper extremity PICC line. INFECTIOUS DISEASE: Consider discontinuing the Zosyn and continue IV Flagyl and p.o. vancomycin. Follow cultures. GASTROINTESTINAL: Continue n.p.o. except meds. I have discussed placement of an NG tube with her and she would like to avoid that. It is difficult to quantify her volume of stool, but I am reluctant to place a fecal management system secondary to her colitis. Change PPI to H2 kay for GI prophylaxis. RENAL: Check PRP later today. As above, if she requires diuresis, she will need ethacrynic acid. HEMATOLOGY: Check serial blood counts. She has been typed and screened. Watch for any signs of bleeding. ENDOCRINE: Continue methimazole and hydrocortisone at present dose until her Levophed requirements begin to decrease. Overall, she looks better than yesterday. I will discuss her care with her son when he arrives. Please call me with any questions or concerns. Critical care time 40 minutes. Addendum 12:45 ... Levophed has been weaned off. Diarrhea is less since this morning. MTDD
--- NOTE | 2017-03-13 11:08 | Progress Note ---
Subjective Date of Service: March 13, 2017. Subjective pt is mentating well continual pain in abdomen, still lower blood pressure, making urine but requiring pressors Problem List Medical Problems: (1) Abdominal pain Status: Acute (2) Ischemic colitis Status: Acute (3) Rectal bleed Status: Acute Review of Systems Constitutional: No chills, No fever Respiratory: No cough, No shortness of breath Cardiac: No chest pain, No edema Abdomen: + diarrhea, + pain, No constipation, No nausea, No vomiting Female : No dysuria, No urinary frequency Psychiatric: No anhedonism, No depression symptoms Objective Vital Signs Date Time Temp Pulse Resp B/P Pulse Ox O2 Delivery O2 Flow Rate FiO2 03/13/17 06:00 75 22 82/49 97 03/13/17 05:30 76 29 96/59 03/13/17 05:00 84 18 91/52 03/13/17 04:05 100 Nasal Cannula 2.0 03/13/17 04:00 36.4 83 36 115/58 96 03/13/17 03:30 82 37 113/64 95 03/13/17 03:00 79 28 102/58 03/13/17 02:00 80 23 96/55 97 03/13/17 01:30 90 24 98/65 98 03/13/17 01:00 104 25 103/54 97 03/13/17 00:04 100 Nasal Cannula 2.0 03/13/17 00:00 36.7 78 24 94/55 97 03/12/17 23:30 82 25 89/58 97 03/12/17 23:00 80 29 89/53 98 03/12/17 22:30 83 28 93/50 97 03/12/17 22:00 116 28 103/60 98 03/12/17 21:57 115 29 102/63 98 03/12/17 21:30 81 29 92/49 98 03/12/17 21:00 80 24 95/49 98 03/12/17 20:31 85 27 86/54 99 03/12/17 20:00 100 Nasal Cannula 2.0 03/12/17 20:00 36.3 80 25 101/53 100 03/12/17 19:30 80 22 80/62 100 03/12/17 19:15 76 22 95/54 100 03/12/17 19:00 73 21 79/52 100 5/6/17 18:00 77 24 82/49 100 5/6/17 17:30 75 30 94/58 99 5/6/17 17:09 77 31 94/53 96 5/6/17 16:45 64 25 96/53 70 5/6/17 16:30 36.9 56/17 16:30 76 23 93/56 86 5/6/17 16:15 72 24 90/49 95 56/17 16:00 Nasal Cannula 2.0 17 16:00 76 25 85/61 94 5/6/17 15:45 72 30 89/46 82 5/6/17 15:30 69 24 87/51 95 56/17 15:15 77 38 77/45 90 03/12/17 15:00 76 23 93/50 98 56/17 14:45 70 22 85/48 56/17 14:30 71 22 86/49 56/17 14:15 74 27 96/56 56/17 14:01 71 22 89/45 97 56/17 13:45 71 23 81/48 98 5/6/17 13:30 69 22 96/58 98 5/6/17 13:15 69 25 79/49 97 6/17 13:00 71 22 85/47 56/17 12:52 69 24 85/57 98 6/17 12:47 71 26 97/47 100 6/17 12:30 67 27 62/49 5/6/17 12:15 68 26 83/63 56/17 12:00 67 25 86/40 98 56/17 12:00 Nasal Cannula 2.0 6/17 11:19 Manual 617 11:16 69 28 72/47 97 5/6/17 11:13 68 16 65/41 97 5/6/17 11:01 67 22 44/36 93 56/17 10:32 66 21 69/38 98 5/6/17 10:15 63 20 96/46 100 5/6/17 10:05 66 28 82/43 99 Nasal Cannula 2.0 6/17 09:45 66 77/41 97 Nasal Cannula 2.0 6/17 09:38 67 75/44 97 Nasal Cannula 2.0 03/12/17 09:31 65 74/45 97 Nasal Cannula 2.0 03/12/17 09:16 65 83/45 100 Nasal Cannula 2.0 03/12/17 09:00 70 108/48 99 Nasal Cannula 2.0 03/12/17 08:58 36.4 75 25 85/56 100 Nasal Cannula 2.0 03/12/17 08:46 75 82/51 98 Nasal Cannula 2.0 03/12/17 08:28 76 24 61/44 98 Nasal Cannula 2.0 03/12/17 08:26 78 23 55/39 03/12/17 08:15 76 27 69/51 03/12/17 08:07 76 20 85/56 96 Nasal Cannula 2.0 03/12/17 07:40 74 16 88/48 96 Nasal Cannula 2.0 Free Flow/Blowby Physical Exam General Appearance: WD/WN, + moderate distress Neck: supple, no JVD Respiratory/Chest: chest non-tender, lungs clear, normal breath sounds, no respiratory distress Cardiovascular: regular rate, rhythm, no murmur Abdomen: + abnormal bowel sounds, + distended, + guarding, + tenderness Extremities: no pedal edema, no calf tenderness Neurologic/Psychiatric: alert, oriented x 3 Laboratory Results Last 24 Hours Test 03/12/17 10:35 03/12/17 10:43 03/12/17 12:22 03/12/17 12:57 Prothrombin Time 12.6 SECONDS Prothromb Time International Ratio 1.2 Activated Partial Thromboplast Time 30.8 SECONDS Partial Thromboplastin Ratio 1.2 Lactic Acid Level 4.7 mmol/L Bedside Glucose 101 mg/dl Sodium Level 145 mmol/L Potassium Level 3.6 mmol/L Chloride Level 114 mmol/L Carbon Dioxide Level 20 mmol/L Anion Gap 11.0 mmol/L Blood Urea Nitrogen 75 mg/dl Creatinine 2.30 mg/dl Est Creatinine Clear Calc Drug Dose 19.5 ml/min Estimated GFR () 22.4 Estimated GFR (Non- 19.3 BUN/Creatinine Ratio 32.4 Random Glucose 111 mg/dl Calcium Level 7.4 mg/dl Phosphorus Level 2.3 mg/dl Total Creatine Kinase 50 U/L Troponin I < 0.015 ng/ml Lipase 244 U/L Test 03/12/17 16:00 03/12/17 18:42 03/12/17 21:02 03/12/17 22:37 Lactic Acid Level 3.1 mmol/L 2.4 mmol/L Sodium Level 144 mmol/L Potassium Level 3.8 mmol/L Chloride Level 109 mmol/L Carbon Dioxide Level 19 mmol/L Anion Gap 16.0 mmol/L Blood Urea Nitrogen 71 mg/dl Creatinine 2.40 mg/dl Est Creatinine Clear Calc Drug Dose 18.6 ml/min Estimated GFR () 21.2 Estimated GFR (Non- 18.3 BUN/Creatinine Ratio 29.7 Random Glucose 123 mg/dl Calcium Level 7.4 mg/dl Troponin I < 0.015 ng/ml Phosphorus Level 3.6 mg/dl Magnesium Level 1.7 mg/dl Test 03/13/17 00:47 03/13/17 05:00 Bedside Glucose (other) 139 mg/dl White Blood Count 12.13 K/uL Red Blood Count 3.49 M/uL Hemoglobin 9.3 g/dL Hematocrit 30.1 % Mean Corpuscular Volume 86.2 fL Mean Corpuscular Hemoglobin 26.6 pg Mean Corpuscular Hemoglobin Concent 30.9 g/dl Platelet Count 211 K/uL Mean Platelet Volume 9.3 fL Neutrophils (%) (Auto) 89.5 % Lymphocytes (%) (Auto) 5.0 % Monocytes (%) (Auto) 5.1 % Eosinophils (%) (Auto) 0.0 % Basophils (%) (Auto) 0.0 % Neutrophils # (Auto) 10.85 K/uL Lymphocytes # (Auto) 0.61 K/uL Monocytes # (Auto) 0.62 K/uL Eosinophils # (Auto) 0.00 K/uL Basophils # (Auto) 0.00 K/uL RDW Standard Deviation 48.9 fL RDW Coefficient of Variation 15.4 % Immature Granulocyte % (Auto) 0.4 % Immature Granulocyte # (Auto) 0.05 K/uL Toxic Vacuolation 1+ Echinocytes 2+ Sodium Level 142 mmol/L Potassium Level 4.1 mmol/L Chloride Level 109 mmol/L Carbon Dioxide Level 22 mmol/L Anion Gap 11.0 mmol/L Blood Urea Nitrogen 64 mg/dl Creatinine 2.30 mg/dl Est Creatinine Clear Calc Drug Dose 19.5 ml/min Estimated GFR () 22.4 Estimated GFR (Non- 19.3 BUN/Creatinine Ratio 28.0 Random Glucose 114 mg/dl Lactic Acid Level 1.8 mmol/L Calcium Level 7.1 mg/dl Phosphorus Level 4.1 mg/dl Magnesium Level 2.1 mg/dl Total Bilirubin 0.8 mg/dl Direct Bilirubin 0.3 mg/dl Aspartate Amino Transf (AST/SGOT) 20 U/L Alanine Aminotransferase (ALT/SGPT) 14 U/L Alkaline Phosphatase 238 U/L Total Protein 5.2 gm/dl Albumin 3.1 gm/dl Assessment and Plan 81-year-old female with chronic bowel issues, sepsis from C diff Sepsis from C Diff, volume resuscitated and on pressors, oral vanco, iv zosyn and flagyl, Blood cultures. Stool cultures abdominal pain from colitis, but caution as has history of ischemic colitis also hypertension and blood pressure medications,continue to be held caution with holding beta kay to watch for rebound tachycardia chronic steroid suppressions, she gives a history of having possibly a scleroderma. covered with stress dose steroids. acute renal failure, due to sepsis, continue with bp support and avoiding nephrotoxins Comment on CT abd/pelvis of adnexal cystic structure vs loop of bowel will need re imaging at some point DVT prevention is renal dose Lovenox.
[2017-03-13 12:17] LABS: HEMATOCRIT 29.5 % (37-47)
[2017-03-13] MEDS: MoRPHine SULFATE 2 MG/ML CARP IV PRN ×3 (12:22→21:39)
[2017-03-13] MEDS: FAMOTIDINE IV INJ 10 MG in DEXTROSE 5% 100ML 100 ML IV SCH (14:22)
[2017-03-13 16:38] LABS: BUN/CREATININE RATIO 27.2 (10-20); CALCIUM 7.5 mg/dl (8.5-10.1); CREATININE 2.2 mg/dl (0.60-1.20); POTASSIUM 3.6 mmol/L (3.5-5.1)
[2017-03-13] MEDS ORDERED: POTASSIUM CHLR 20 MEQ / WTR 20 MEQ in PREMIXED WATER 100 ML IV ONE (18:00)
[2017-03-13] MEDS: ATORVASTATIN 20 MG TAB PO SCH (20:13)
[2017-03-13] MEDS: HYDROCORTISONE IV 50 MG in SYRINGE 0 ML IV SCH (20:16)
[2017-03-13] MEDS ORDERED: LISINOPRIL 10 MG TAB PO SCH (21:00)
[2017-03-13] MEDS: TRAMADOL HCL 50 MG TAB PO PRN (22:12)
[2017-03-14] VITALS (15 sets, daily range): BP systolic 116–145; BP diastolic 59–85; PULSE 75–89; TEMP 36.4–37; O2SAT 91–100
[2017-03-14] MEDS: METRONIDAZOLE / NSS 500 MG in PREMIXED NSS 100 ML IV SCH ×3 (01:59→17:24)
[2017-03-14] MEDS: FAMOTIDINE IV INJ 10 MG in DEXTROSE 5% 100ML 100 ML IV SCH (01:59)
[2017-03-14] MEDS: MoRPHine SULFATE 2 MG/ML CARP IV PRN ×4 (01:59→15:48)
[2017-03-14] MEDS: HYDROCORTISONE IV 50 MG in SYRINGE 0 ML IV SCH ×2 (04:03→09:09)
[2017-03-14] MEDS: SODIUM BICARBONATE 8.4% INJ 50 MEQ in SODIUM CHLORIDE 0.45% 1000ML 1,000 ML IV SCH (04:59)
[2017-03-14 05:26] LABS: HEMATOCRIT 26.7 % (37-47); MEAN CELL VOLUME 85.3 fL (80-100); MEAN CORPUSCULAR HEMOGLOBIN 26.8 pg (25-34); MEAN CORPUSCULAR HGB CONC 31.5 g/dl (32-36); MEAN PLATELET VOLUME 9.8 fL (7.4-10.4); PLATELET COUNT 187 K/uL (130-400); RED BLOOD COUNT 3.13 M/uL (4.2-5.4); WHITE BLOOD COUNT 9.33 K/uL (4.8-10.8)
[2017-03-14 05:44] LABS: BUN/CREATININE RATIO 25.7 (10-20); CALCIUM 7.6 mg/dl (8.5-10.1); MAGNESIUM 2.1 mg/dl (1.8-2.4); POTASSIUM 3.7 mmol/L (3.5-5.1)
[2017-03-14 05:49] LABS: PHOSPHORUS 3.1 mg/dl (2.5-4.9)
[2017-03-14 05:50] LABS: COMPLETE YES; ECHINOCYTES 2+; LYMPH ABS # 0.57 K/uL (1.2-3.4); LYMPHOCYTE % 6.1 %; NEUTROPHILS % 92.2 %; TOXIC GRANULATION 1+
--- NOTE | 2017-03-14 07:50 | DIAGNOSTIC IMAGING REPORT ---
ABDOMEN 2 VIEWS HISTORY: Abdominal distention. Sepsis. COMPARISON: Abdominal series 03/13/2017. FINDINGS: Cholecystectomy. Patchy densities of the right lung base are again noted. No pneumoperitoneum. No pneumatosis. Multiple mildly distended gas-filled loops of large and small bowel seen throughout the abdomen. This is similar to the prior study. Right hip screw. IMPRESSION: No change in the mildly distended gas-filled loops of large and small bowel seen throughout the abdomen. Electronically signed by: Sam Jones M.D. 03/14/2017 7:49 AM Dictated Date/Time: 03/14/2017 7:46 AM
[2017-03-14] MEDS: METHIMAZOLE 5 MG TAB PO SCH (09:08)
[2017-03-14] MEDS: RASPBERRY SYRUP 5 ML UDP PO SCH ×4 (09:08→21:33)
[2017-03-14] MEDS: CALCITRIOL 0.25 MCG CAP PO SCH (09:09)
[2017-03-14] MEDS: VANCOMYCIN HCL 125 MG/2.5ML SOLN PO SCH ×4 (09:10→21:33)
[2017-03-14] MEDS: HEPARIN SOD 5000 UNIT/0.5 ML CARP SQ SCH ×2 (09:11→21:39)
--- NOTE | 2017-03-14 12:08 | Gastrointestinal Consultation ---
Gastrointestinal Consultation Date of Consultation: March 14, 2017 Attending Physician: Dr. Carrera Consulting Physician: Dr. Manda Vences Reason for Consultation: C-diff sepsis History of Present Illness Patient is a 81 year old female patient of Dr. Mccall with a hx of C-diff, ischemic colitis, gastroparesis, PUD, hyperlipidemia, pyelonephritis, CKDIII who presented to the ED on 03/12/17 for abdominal pain. In the ED, she was found to be hypotensive, with an elevated WBC (13) and lactic acid (2.1). C-diff is positive. GI is consulted for opinion regarding tx of C-diff. She is followed in GI clinic by Dr. Bowling for gastroparesis, constipation, IBS , hx of C-diff (most recently positive in 2011). I was able to see her while she was resting in bed in the ICU, where she is awake, alert,oriented, very interactive but tells us that she is very weak. Her son is with her at the bedside. Regarding her current illness, she tells us that, at baseline, she has constipation. She had not had a BM in 6 days. She took several doses of Golytely , then developed cramping abdominal pain. The pain did not improve so she presented to the ED for this pain. On arrival, CT was normal, stool was (+) for C-diff, stool cultures (-) and she was hypotensive at 81/48. She was given the dx of C-diff sepsis based on elevated WBC, elevated lactic acid and hypotension in the ED. Blood cultures are (-) thus far. She is now normotensive. She has passed about 5 liquid BMs thus far today. No blood in the stools. Past Medical/Surgical History Medical Problems: (1) Abdominal pain Status: Acute (2) Hypotension Status: Acute (3) Ischemic colitis Status: Acute (4) Rectal bleed Status: Acute Past Medical History: 1. C-diff 2. Depression 3. GERD 4. PUC 5. dyslipidemia 6. Pyelonephritis 7. Vertigo 8. CKDIII 9. Gastroparesis Past Surgical History: 1. Cholecystitis 2. Appendectomy 3. Hysterectomy 4. Subtotal gastrectomy with vagotomy for PUD in 1980 5. Most recent EGD on 03/28/[address] Bowling for abdominal pain : patent Billroth I, bilious gastric fluid, normal duodenum. 6. Most recent Colonoscopy by Dr. Bowling on 06/16/16: internal hemorrhoids, diverticulosis. Family History Cancer Gallbladder disease Heart disease Hypertension Social History Smoking Status: Former Smoker Alcohol Use: none Drug Use: none Marital Status: Housing Status: lives with family Occupation Status: retired Allergies Coded Allergies: Sulfa Drugs (Verified Allergy, Mild, SULFA-BASED DIURETICS-SEVERE RASH, 03/12/17) ALL DIURETICS, EXCEPT ALDACTONE, WHICH ARE SULFA BASED CAUSE SEVERE RASH Cefuroxime (Unverified Allergy, Unknown, INEFFECTIVE, 03/12/17) Ciprofloxacin (Unverified Allergy, Unknown, INEFFECTIVE, 03/12/17) Erythromycin (Verified Allergy, Unknown, SEVERE VOMITING, 03/12/17) Furosemide (Verified Allergy, Unknown, HIVES, SULFA ALLERGY TO LOOP DIURETICS, 03/12/17) Hydrochlorothiazide (Verified Allergy, Unknown, HIVES, 03/12/17) Levofloxacin (Unverified Allergy, Unknown, INEFFECTIVE, 03/12/17) Metoclopramide (Verified Allergy, Unknown, anxiety attacks, 03/12/17) Sulfa Antibiotics (Unverified Allergy, Unknown, HIVES AND ANAPHYLAXIS, 03/12) Meperidine (Verified Adverse Reaction, Unknown, INEFFECTIVE FOR PT, 03/12/17 ) INAFFECTIVE FOR PATIENT Current Medications Home Meds and Scripts Medications Dose Route/Sig Max Daily Dose Days Date Category Dose Instructions Aleve (Naproxen) 220 Mg Tab 220 Mg PO UD PRN 03/12/17 Reported Vitamin D3 (Cholecalciferol) 1,000 Unit Tab 3,000 Unit PO DAILY 90 03/12/17 Reported Cyanocobalamin 1,000 Mcg/Ml Inj 1 Dose INJ MONTHLY 03/12/17 Reported Magnesium (Magnesium Oxide) 250 Mg Tab 250 Mg PO QAM 05/18/16 Reported Golytely (Peg [id number] Bicarb-Sod Ch) 1 Benita Benita 1-3 Dose PO QPM 05/18/16 Reported 1-3 GLASSES STARTING AT 5PM DEPENDING ON DEGREE OF ABDOMINAL PAIN AND NEED Rocaltrol Cap (Calcitriol) 0.25 Mcg Cap 0.25 Mcg PO QAM 06/04/15 Reported Prednisone 5 Mg Tab 5 Mg PO QAM 06/04/15 Reported Lopressor (Metoprolol Tartrate) 25 Mg Tab 12.5 Mg PO BID 08/29/14 Reported 1/2 TABLET DOSE Prinivil (Lisinopril) 10 Mg Tab 10 Mg PO HS 08/29/14 Reported Ultram (Tramadol HCl) 50 Mg Tab 50 Mg PO HS PRN 06/09/14 Reported Edecrin (Ethacrynic Acid) 25 Mg Tab 75 Mg PO QAM 06/09/14 Reported 3 TABLET DOSE Methimazole (Methimazole) 5 Mg Tab 2.5 Mg PO QAM 06/09/14 Reported 1/2 TABLET DOSE Lipitor (Atorvastatin Calcium) 20 Mg Tab 20 Mg PO HS 07/26/13 Reported Domperidone Bpbp 10 Mg PO QID 03/06/10 Reported Review of Systems Constitutional: + weakness, No chills, No fever, No sweats, No weight loss Eyes: No eye pain, No redness ENT: No pain on swallowing, No sore throat, No trouble swallowing Respiratory: No cough, No dyspnea on exertion, No shortness of breath, No wheezing Cardiac: No chest pain, No edema, No palpitations Abdomen: + constipation, + diarrhea, + pain, + see HPI Female : No dysuria Neuro: No balance problems, No memory loss, No numbness/tingling, No vertigo, No weakness Psych: No anxiety, No depression symptoms, No insomnia Heme: No abnormal bleeding/bruising, No night sweats Endo: No excessive thirst, No excessive urination Skin: No itch, No jaundice, No new/changing skin lesions, No rash Physical Exam Date Time Temp Pulse Resp B/P Pulse Ox O2 Delivery O2 Flow Rate FiO2 03/14/17 08:00 Nasal Cannula 03/14/17 05:03 99 Nasal Cannula 2.0 03/14/17 05:00 76 22 122/69 96 03/14/17 04:00 99 Nasal Cannula 2.0 03/14/17 04:00 36.8 89 34 145/64 92 03/14/17 03:30 78 17 124/62 97 03/14/17 03:00 79 21 124/62 94 03/14/17 02:00 36.8 75 20 126/65 97 03/14/17 01:00 77 45 127/67 97 03/14/17 00:04 99 Nasal Cannula 2.0 03/14/17 00:00 76 18 116/59 91 Nasal Cannula 03/13/17 23:00 81 32 118/60 95 Nasal Cannula 2.0 03/13/17 22:00 81 23 122/62 98 Nasal Cannula 03/13/17 21:00 77 31 120/72 98 Nasal Cannula 03/13/17 20:00 99 Nasal Cannula 2.0 03/13/17 20:00 37.1 72 19 98/49 100 Nasal Cannula 03/13/17 19:00 77 25 107/59 99 Nasal Cannula 03/13/17 18:00 78 26 120/53 99 Nasal Cannula 2.0 03/13/17 16:00 Room Air 03/13/17 16:00 36.7 83 22 109/63 92 Room Air 03/13/17 15:00 82 31 119/57 93 Room Air 03/13/17 14:00 74 22 113/59 97 Room Air 03/13/17 13:00 76 24 108/51 92 Room Air 03/13/17 12:45 74 24 110/57 92 Room Air 03/13/17 12:30 77 31 108/58 94 Room Air 03/13/17 12:15 79 28 109/54 95 Room Air 03/13/17 12:00 36.6 83 26 112/67 92 Room Air 03/13/17 12:00 Room Air 03/13/17 11:45 79 20 117/61 95 Room Air General Appearance: no apparent distress Eyes: normal inspection, EOMI Neck: supple, no adenopathy, thyroid normal Respiratory/Chest: chest non-tender, lungs clear, normal breath sounds, no accessory muscle use Cardiovascular: regular rate, rhythm, no JVD, no murmur Abdomen: normal bowel sounds, no organomegaly, + tenderness (mild, diffuse tenderness) Extremities: normal inspection, no pedal edema, normal capillary refill Neurologic/Psych: alert, normal mood/affect, oriented x 3 Skin: normal color, no jaundice, warm/dry, no rash Laboratory Results Last 24 Hours Test 03/13/17 12:09 03/13/17 16:12 03/14/17 02:07 03/14/17 05:20 Hemoglobin 9.0 g/dL 8.4 g/dL Hematocrit 29.5 % 26.7 % Lactic Acid Level 2.2 mmol/L 1.2 mmol/L Sodium Level 143 mmol/L 140 mmol/L Potassium Level 3.6 mmol/L 3.7 mmol/L Chloride Level 108 mmol/L 108 mmol/L Carbon Dioxide Level 22 mmol/L 25 mmol/L Anion Gap 13.0 mmol/L 7.0 mmol/L Blood Urea Nitrogen 60 mg/dl 51 mg/dl Creatinine 2.20 mg/dl 2.00 mg/dl Est Creatinine Clear Calc Drug Dose 20.3 ml/min 22.4 ml/min Estimated GFR () 23.6 26.5 Estimated GFR (Non- 20.4 22.8 BUN/Creatinine Ratio 27.2 25.7 Random Glucose 112 mg/dl 89 mg/dl Calcium Level 7.5 mg/dl 7.6 mg/dl Bedside Glucose 89 mg/dl White Blood Count 9.33 K/uL Red Blood Count 3.13 M/uL Mean Corpuscular Volume 85.3 fL Mean Corpuscular Hemoglobin 26.8 pg Mean Corpuscular Hemoglobin Concent 31.5 g/dl Platelet Count 187 K/uL Mean Platelet Volume 9.8 fL RDW Standard Deviation 48.9 fL RDW Coefficient of Variation 15.6 % Neutrophils % (Manual) 92.2 % Lymphocytes % (Manual) 6.1 % Monocytes % (Manual) 1.7 % Neutrophils # (Manual) 8.60 K/uL Total Absolute Neutrophils 8.60 K/uL Lymphocytes # (Manual) 0.57 K/uL Total Absolute Lymphocytes 0.57 K/uL Monocytes # (Manual) 0.16 K/uL Toxic Granulation 1+ Echinocytes 2+ Phosphorus Level 3.1 mg/dl Magnesium Level 2.1 mg/dl Test 03/14/17 08:50 03/14/17 11:34 Ionized Calcium 1.09 mmol/l Impression Patient is a 81 year old female with C-diff diarrhea. Ct is suggestive of colitis. Hypotension, initial leukocytosis and elevated lactic acid which has since improved are suggestive of sepsis. Plan 1. Agree with Vancomycin QID, would treat for 2 weeks. If she is improving on 125mg dose, then no need to increase but would increase to 250mg QID if not improving. 2. Agree with IV flagyl and would continue this for a few more days. 3. At this point it does not look like she needs a long taper because she has not had this since 2011, however, again, if she does not improve quickly then would change to a long taper. 4. Daily KUBs to verify no worsening of colon distention. 5. Will continue to follow daily. I saw and evaluated the patient. She presents with recurrent C. difficile infection her last treatment course been almost 2 years ago. She reports having several days of abdominal pain and developed constipation followed by diarrhea. Of note she was admitted to the ICU due to hypotension noted during her initial evaluation. Physical examination No obvious distress No abdominal tenderness no rebound or peritoneal signs Impression: Patient with C. difficile infection, mild dilation of colon noted on imaging and mild leukocytosis. Given her comorbid conditions the patient may be best treated with combination therapy of vancomycin and metronidazole. Recommendations Vancomycin 125 mg 4 times a day Begin metronidazole intravenously Daily KUB Please call with any questions
[2017-03-14 13:02] LABS: FERRITIN 44.1 ng/ml (8.0-388.0); THYROID STIMULATING HORMONE 0.771 uIu/ml (0.300-4.500)
--- NOTE | 2017-03-14 14:35 | Critical Care Progress Note ---
Critical Care Progress Note Date of Service March 14, 2017. Attending Dr. Deng Subjective 81 yo female admitted for abdominal pain and found to have recurrent C. diff colitis. She was in need of volume resuscitation and treated for sepsis. She expierienced tachycardia with a junctional rhythm and spontaneously converted back into sinus rhythm. She was placed on Levophed which has now been titrated off. She currently denies chest pain. She does state that she has some mild DUMAS with no chest pain with exertion. She continues to c/o abdominal pain but states that it is slightly improved from yesterday. While she has many complaints, she reportts that overall she is doing better and that her complaints are generally due to her chronic medical issues. 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 Objective Vital Signs - as noted below Laboratory Data - as noted below Physical Exam: General - NAD. Anxious Eyes - No icterus, gaze conjugate ENT - Mucosa moist, no lesions or candidiasis Neck - Supple, No JVD Lungs - No bronchospasm, rales, or rhonchi. Heart - Regular, rate controlled Abdomen - Soft, BS present with no high-pitched bowel sounds. Diffusely tender to light palpation but inappropriate to complaint. No rebound tenderness when patient distracted Extremities - No edema, pedal pulses intact. Patient tender on palpation to right hand which she claims to be secondary to scleroderma. No pain to left hand. Bilateral radial pulses intact and equal Neuro - A&OX3 Assessment & Plan RECURRENT C. DIFFICILE COLITIS Continue with metronidazole and PO vancomycin Gastroenterology consulted. They agree with continuation of vancomycin by mouth and IV Flagyl. Recommend at least two weeks of vancomycin treatment. If no improvement increased 250 mg 4 times a day GI recommended daily KUB Appreciate GI comments SEPSIS Treat with hypotension secondary to C. difficile - now resolved Improved significantly with fluid resuscitation Lactic acid now normal Pressors discontinued Continue antibiotics as listed above Blood cultures 2 no growth to date Stool culture positive for C. difficile negative for other pathogens Okay for transfer to medical floor for further management SCLERODERMA Per patient report Continue steroids and taper as tolerated ANEMIA Drop in Hgb from 13.1 to 8.4 today Possibly due to dilution No evidence of active bleeding Hemodynamically stable Supplement iron and folate but follow serial labs. Type and cross completed - no transfusion until below 7 but watch closely for hemodynamic shift CARDIAC Junctional tachycardia on admission to ICU Patient now with normal sinus rhythm and rate control Grade 1 diastolic dysfunction Watch fluid status closely History of hypertension Hemodynamically stable No chest pain Follow clinically RENAL Baseline creatinine 1.5-1.6 Patient was a 2.4 on 03/12/17 - trending downward at 2.0 today Follow serial labs Most likely ATN from sepsis CHF Patient requires diuresis, it should be noted that she has severe rash with all diuretics except for Aldactone. Therefore, she will require ethacrynic acid. GI PROPHYLAXIS Famotidine DVT PROPHYLAXIS No chemical prophylaxis secondary to anemia and colitis Continue NEO hose/SCDs as tolerated CCT: 0 minutes. Level 2 inpatient bill I have personally evaluated and examined this patient. I agree with assessment and plan of Cezar Mcnamara PA-C. Resolved sepsis secondary to recurrent C. difficile colitis. Stable for downgraded to [facility]. Consults & Procedures Consultants: Gastroenterology - Dr. Vences Procedures: None Data Medications: Current Inpatient Medications Medications (Trade) Dose Ordered Sig/Herminia Route Start Time Stop Time Status Last Admin Dose Admin Calcitriol (Rocaltrol Cap) 0.25 mcg QAM PO 03/12/17 09:00 04/11/17 08:59 03/14/17 09:09 0.25 MCG Methimazole (Methimazole Tab) 2.5 mg QAM PO 03/12/17 09:00 04/11/17 08:59 03/14/17 09:08 2.5 MG Tramadol HCl (Ultram Tab) 50 mg HS PRN PO 03/12/17 07:00 04/11/17 06:59 03/13/17 22:12 50 MG Miscellaneous Information (Order Awaiting Action) 1 ea QS N/A 03/12/17 16:00 04/11/17 15:59 Atorvastatin Calcium (Lipitor Tab) 20 mg HS PO 03/13/17 21:00 04/12/17 20:59 03/13/17 20:13 20 MG Vancomycin HCl (Vancomycin Oral Soln) 125 mg QID PO 03/12/17 09:00 03/22/17 08:59 03/14/17 13:09 125 MG Morphine Sulfate (MoRPHine SULFATE INJ) 2 mg Q4H PRN IV 03/12/17 07:15 03/26/17 07:14 03/14/17 10:55 2 MG Acetaminophen (Tylenol Tab) 650 mg Q4H PRN PO 03/12/17 07:15 04/11/17 07:14 Ondansetron HCl (Zofran Inj) 4 mg Q6H PRN IV 03/12/17 07:15 04/11/17 07:14 03/12/17 15:26 4 MG Raspberry 5 ml 5 ml QID PO 03/12/17 09:00 03/26/17 08:59 03/14/17 13:09 5 ML Metronidazole/Prmx (Flagyl / Nss/ Premixed Nss) 100 ml @ 100 mls/hr Q8@0200,1000,1800 IV 03/12/17 11:00 03/26/17 09:59 03/14/17 09:09 100 MLS/HR Heparin Sodium (Porcine) (Heparin Sq 5000 Unit/0.5ml) 5,000 unit Q12 SQ 03/12/17 21:00 04/11/17 20:59 03/14/17 09:11 5,000 UNIT Heparin Sodium (Porcine) (Heparin 10 Unit/ ml 5 ml Flush) 5 ml PRN PRN FLUSH 03/13/17 01:30 04/12/17 01:29 Famotidine (Pepcid Tab) 10 mg BID PO 03/14/17 21:00 04/13/17 20:59 Prednisone (PredniSONE TAB) 20 mg Taper DAILY PO 03/15/17 09:00 03/18/18 08:59 I & O: 24-Hour Column 03/14/17 07:59 Intake Total 4521 ml Output Total 2200 ml Balance 2321 ml Vital Signs: Date Time Temp Pulse Resp B/P Pulse Ox O2 Delivery O2 Flow Rate FiO2 03/14/17 12:00 36.6 78 26 137/85 94 Nasal Cannula 2.0 03/14/17 12:00 94 Nasal Cannula 2.0 03/14/17 10:00 81 22 138/71 03/14/17 08:00 Nasal Cannula 03/14/17 08:00 36.8 82 30 141/83 93 Nasal Cannula 2.0 03/14/17 08:00 96 Nasal Cannula 2.0 03/14/17 05:03 99 Nasal Cannula 2.0 03/14/17 05:00 76 22 122/69 96 03/14/17 04:00 99 Nasal Cannula 2.0 03/14/17 04:00 36.8 89 34 145/64 92 03/14/17 03:30 78 17 124/62 97 03/14/17 03:00 79 21 124/62 94 03/14/17 02:00 36.8 75 20 126/65 97 03/14/17 01:00 77 45 127/67 97 03/14/17 00:04 99 Nasal Cannula 2.0 03/14/17 00:00 76 18 116/59 91 Nasal Cannula 03/13/17 23:00 81 32 118/60 95 Nasal Cannula 2.0 03/13/17 22:00 81 23 122/62 98 Nasal Cannula 03/13/17 21:00 77 31 120/72 98 Nasal Cannula 03/13/17 20:00 99 Nasal Cannula 2.0 03/13/17 20:00 37.1 72 19 98/49 100 Nasal Cannula 03/13/17 19:00 77 25 107/59 99 Nasal Cannula 03/13/17 18:00 78 26 120/53 99 Nasal Cannula 2.0 03/13/17 16:00 Room Air 03/13/17 16:00 36.7 83 22 109/63 92 Room Air 03/13/17 15:00 82 31 119/57 93 Room Air Laboratory Results: Last 24 Hours Test 03/13/17 16:12 03/14/17 02:07 03/14/17 05:20 03/14/17 08:50 Sodium Level 143 mmol/L 140 mmol/L Potassium Level 3.6 mmol/L 3.7 mmol/L Chloride Level 108 mmol/L 108 mmol/L Carbon Dioxide Level 22 mmol/L 25 mmol/L Anion Gap 13.0 mmol/L 7.0 mmol/L Blood Urea Nitrogen 60 mg/dl 51 mg/dl Creatinine 2.20 mg/dl 2.00 mg/dl Est Creatinine Clear Calc Drug Dose 20.3 ml/min 22.4 ml/min Estimated GFR () 23.6 26.5 Estimated GFR (Non- 20.4 22.8 BUN/Creatinine Ratio 27.2 25.7 Random Glucose 112 mg/dl 89 mg/dl Calcium Level 7.5 mg/dl 7.6 mg/dl Bedside Glucose 89 mg/dl White Blood Count 9.33 K/uL Red Blood Count 3.13 M/uL Hemoglobin 8.4 g/dL Hematocrit 26.7 % Mean Corpuscular Volume 85.3 fL Mean Corpuscular Hemoglobin 26.8 pg Mean Corpuscular Hemoglobin Concent 31.5 g/dl Platelet Count 187 K/uL Mean Platelet Volume 9.8 fL RDW Standard Deviation 48.9 fL RDW Coefficient of Variation 15.6 % Neutrophils % (Manual) 92.2 % Lymphocytes % (Manual) 6.1 % Monocytes % (Manual) 1.7 % Neutrophils # (Manual) 8.60 K/uL Total Absolute Neutrophils 8.60 K/uL Lymphocytes # (Manual) 0.57 K/uL Total Absolute Lymphocytes 0.57 K/uL Monocytes # (Manual) 0.16 K/uL Toxic Granulation 1+ Echinocytes 2+ Lactic Acid Level 1.2 mmol/L Phosphorus Level 3.1 mg/dl Magnesium Level 2.1 mg/dl Ionized Calcium 1.09 mmol/l Test 03/14/17 11:56 Iron Level 5 mcg/dl Total Iron Binding Capacity 197 mcg/dl Transferrin 143 mg/dl Transferrin % Saturation 2 % Ferritin 44.1 ng/ml Vitamin B12 Level 1251 pg/mL Folate 4.32 ng/mL Thyroid Stimulating Hormone (TSH) 0.771 uIu/ml
[2017-03-14] MEDS: DOMPERIDONE 10 MG PO SCH ×2 (17:04→23:07)
[2017-03-14] MEDS: FERROUS SULFATE 325 MG TAB PO SCH (17:05)
--- NOTE | 2017-03-14 17:31 | Medical Student: [facility] ---
Med Student Progress Note Date of Service March 14, 2017. Subjective Pt evaluation today including: conversation w/ patient Pain: Moderate abdominal pain, partially relieved with morphine PO Intake: clear liquid diet Voiding: william catheter in place Patient reports feeling better today than before. She is still having frequent diarrhea, reporting that she has had five loose bowel movements already this morning. She continues to complain of abdominal pain but reports that it is less than before. The pain is worse when on her side, and particularly intolerable while lying on her left side. She expressed concern about possibility of UTI from fecal incontinence and also trepidation about beginning physical therapy in the hospital due to intolerance of standing for more than 2 minutes. Review of Systems All Other Systems: Reviewed and Negative Objective Vital Signs Date Time Temp Pulse Resp B/P Pulse Ox O2 Delivery O2 Flow Rate FiO2 03/14/17 14:50 37.0 81 20 135/79 96 Nasal Cannula 2.0 03/14/17 12:00 36.6 78 26 137/85 94 Nasal Cannula 2.0 03/14/17 12:00 94 Nasal Cannula 2.0 03/14/17 10:00 81 22 138/71 03/14/17 08:00 Nasal Cannula 03/14/17 08:00 36.8 82 30 141/83 93 Nasal Cannula 2.0 03/14/17 08:00 96 Nasal Cannula 2.0 03/14/17 05:03 99 Nasal Cannula 2.0 03/14/17 05:00 76 22 122/69 96 03/14/17 04:00 99 Nasal Cannula 2.0 03/14/17 04:00 36.8 89 34 145/64 92 03/14/17 03:30 78 17 124/62 97 03/14/17 03:00 79 21 124/62 94 03/14/17 02:00 36.8 75 20 126/65 97 03/14/17 01:00 77 45 127/67 97 03/14/17 00:04 99 Nasal Cannula 2.0 03/14/17 00:00 76 18 116/59 91 Nasal Cannula 03/13/17 23:00 81 32 118/60 95 Nasal Cannula 2.0 03/13/17 22:00 81 23 122/62 98 Nasal Cannula 03/13/17 21:00 77 31 120/72 98 Nasal Cannula 03/13/17 20:00 99 Nasal Cannula 2.0 03/13/17 20:00 37.1 72 19 98/49 100 Nasal Cannula 03/13/17 19:00 77 25 107/59 99 Nasal Cannula 03/13/17 18:00 78 26 120/53 99 Nasal Cannula 2.0 Physical Exam General Appearance: + mild distress ENT: pharynx normal, + pertinent finding (mucus membranes dry) Neck: supple, no adenopathy, thyroid normal, + JVD Respiratory/Chest: chest non-tender, lungs clear, + respiratory distress, + decreased breath sounds, + pertinent finding (poor respiratory effort) Cardiovascular: regular rate, rhythm, no edema, no gallop, no murmur Abdomen: + abnormal bowel sounds (hyperactive), + tenderness (diffuse) Extremities: no pedal edema Skin: warm/dry, no rash Laboratory Results Last 24 Hours Test 03/14/17 02:07 03/14/17 05:20 03/14/17 08:50 03/14/17 11:56 Bedside Glucose 89 mg/dl White Blood Count 9.33 K/uL Red Blood Count 3.13 M/uL Hemoglobin 8.4 g/dL Hematocrit 26.7 % Mean Corpuscular Volume 85.3 fL Mean Corpuscular Hemoglobin 26.8 pg Mean Corpuscular Hemoglobin Concent 31.5 g/dl Platelet Count 187 K/uL Mean Platelet Volume 9.8 fL RDW Standard Deviation 48.9 fL RDW Coefficient of Variation 15.6 % Neutrophils % (Manual) 92.2 % Lymphocytes % (Manual) 6.1 % Monocytes % (Manual) 1.7 % Neutrophils # (Manual) 8.60 K/uL Total Absolute Neutrophils 8.60 K/uL Lymphocytes # (Manual) 0.57 K/uL Total Absolute Lymphocytes 0.57 K/uL Monocytes # (Manual) 0.16 K/uL Toxic Granulation 1+ Echinocytes 2+ Sodium Level 140 mmol/L Potassium Level 3.7 mmol/L Chloride Level 108 mmol/L Carbon Dioxide Level 25 mmol/L Anion Gap 7.0 mmol/L Blood Urea Nitrogen 51 mg/dl Creatinine 2.00 mg/dl Est Creatinine Clear Calc Drug Dose 22.4 ml/min Estimated GFR () 26.5 Estimated GFR (Non- 22.8 BUN/Creatinine Ratio 25.7 Random Glucose 89 mg/dl Lactic Acid Level 1.2 mmol/L Calcium Level 7.6 mg/dl Phosphorus Level 3.1 mg/dl Magnesium Level 2.1 mg/dl Ionized Calcium 1.09 mmol/l Iron Level 5 mcg/dl Total Iron Binding Capacity 197 mcg/dl Transferrin 143 mg/dl Transferrin % Saturation 2 % Ferritin 44.1 ng/ml Vitamin B12 Level 1251 pg/mL Folate 4.32 ng/mL Thyroid Stimulating Hormone (TSH) 0.771 uIu/ml Medications Current Inpatient Medications Medications (Trade) Dose Ordered Sig/[place] Route Start Time Stop Time Status Last Admin Dose Admin Calcitriol (Rocaltrol Cap) 0.25 mcg QAM PO 03/12/17 09:00 04/11/17 08:59 03/14/17 09:09 0.25 MCG Methimazole (Methimazole Tab) 2.5 mg QAM PO 03/12/17 09:00 04/11/17 08:59 03/14/17 09:08 2.5 MG Tramadol HCl (Ultram Tab) 50 mg HS PRN PO 03/12/17 07:00 04/11/17 06:59 03/13/17 22:12 50 MG Atorvastatin Calcium (Lipitor Tab) 20 mg HS PO 03/13/17 21:00 04/12/17 20:59 03/13/17 20:13 20 MG Vancomycin HCl (Vancomycin Oral Soln) 125 mg QID PO 03/12/17 09:00 03/22/17 08:59 03/14/17 13:09 125 MG Morphine Sulfate (MoRPHine SULFATE INJ) 2 mg Q4H PRN IV 03/12/17 07:15 03/26/17 07:14 03/14/17 15:48 2 MG Acetaminophen (Tylenol Tab) 650 mg Q4H PRN PO 03/12/17 07:15 04/11/17 07:14 Ondansetron HCl (Zofran Inj) 4 mg Q6H PRN IV 03/12/17 07:15 04/11/17 07:14 03/12/17 15:26 4 MG Raspberry 5 ml 5 ml QID PO 03/12/17 09:00 03/26/17 08:59 03/14/17 13:09 5 ML Metronidazole/Prmx (Flagyl / Nss/ Premixed Nss) 100 ml @ 100 mls/hr Q8@0200,1000,1800 IV 03/12/17 11:00 03/26/17 09:59 03/14/17 09:09 100 MLS/HR Heparin Sodium (Porcine) (Heparin Sq 5000 Unit/0.5ml) 5,000 unit Q12 SQ 03/12/17 21:00 04/11/17 20:59 03/14/17 09:11 5,000 UNIT Heparin Sodium (Porcine) (Heparin 10 Unit/ ml 5 ml Flush) 5 ml PRN PRN FLUSH 03/13/17 01:30 04/12/17 01:29 Famotidine (Pepcid Tab) 10 mg BID PO 03/14/17 21:00 04/13/17 20:59 Prednisone (PredniSONE TAB) 20 mg Taper DAILY PO 03/15/17 09:00 03/18/18 08:59 Domperidone Maleate (Domperidone) 10 mg ACHS PO 03/14/17 16:15 04/13/17 16:14 Folic Acid (Folvite Tab) 1 mg QAM PO 03/14/17 16:15 04/13/17 16:14 Ferrous Sulfate (Feosol Tab) 325 mg BIDM PO 03/14/17 16:45 04/13/17 16:44 Assessment and Plan Problems Abdominal pain Acute renal failure Benign hypertension Chronic congestive heart failure Colitis renal disease Assessment and Plan: This is an 81 yo female who presents with sepsis secondary to severe recurrent c. diff colitis and acute on chronic kidney disease. 1. Sepsis: Blood pressure has stabilized and she has been weaned off of Levophed. A prednisone taper was started at 20 mg and will be tapered to her chronic dose of 5 mg. 2. C diff colitis: Continue IV metronidazole and PO vancomycin. Zosyn was discontinued. Continue to advance diet as tolerated and watch for possible mesenteric ischemia due to history. 3. CORNELL: Likely ATN secondary to sepsis. Will continue IV hydration and monitor serial PRPs. Avoid nephrotoxic medications. 4. Diastolic CHF: Appears to be well-controlled. If diuresis is necessary, use ethacrynic acid due to sulfa allergies. 5. HTN: Hold antihypertensive meds until blood pressure returns to baseline. May use prn atenolol for any elevated pressures. 6. DVT prophylaxis: Receiving lovenox sub-q for prophylaxis. 7. Anemia: Continue to follow blood counts daily. Iron studies indicated a mixed anemia, with low folate. Will supplement iron and folate. 8. Downgrade to floor status. Continued [facility] stay due to: abnormal vital signs, inadequate po fluid intake, multiple IV medications needed Discharge planning: uncertain
--- NOTE | 2017-03-14 20:18 | Progress Note ---
Subjective Date of Service: March 14, 2017. Subjective Pt evaluation today including: conversation w/ patient, physical exam, chart review, lab review, review of studies (KUB x-ray), conversation w/ cloud consultant ( critical care), review of inpatient medication list Pain: mild abdominal pain; back pain (chronic) PO Intake: fair Voiding: william catheter in place no events overnight pressors are off no nausea or vomiting tolerating diet thus far but still having copious, liquid stools has numerous questions about her medications has some shortness of breath with exertion BPs have been stable since off her pressors Problem List Medical Problems: (1) Abdominal pain Status: Acute (2) Hypotension Status: Acute (3) Ischemic colitis Status: Acute (4) Rectal bleed Status: Acute Review of Systems Constitutional: No chills, No fever Respiratory: + dyspnea on exertion, + shortness of breath, No cough Cardiac: No chest pain Abdomen: + pain, + see HPI Objective Vital Signs Date Time Temp Pulse Resp B/P Pulse Ox O2 Delivery O2 Flow Rate FiO2 03/14/17 19:25 37.0 88 22 133/76 100 Nasal Cannula 2.0 03/14/17 14:50 37.0 81 20 135/79 96 Nasal Cannula 2.0 03/14/17 12:00 36.6 78 26 137/85 94 Nasal Cannula 2.0 03/14/17 12:00 94 Nasal Cannula 2.0 03/14/17 10:00 81 22 138/71 03/14/17 08:00 Nasal Cannula 03/14/17 08:00 36.8 82 30 141/83 93 Nasal Cannula 2.0 03/14/17 08:00 96 Nasal Cannula 2.0 03/14/17 05:03 99 Nasal Cannula 2.0 03/14/17 05:00 76 22 122/69 96 03/14/17 04:00 99 Nasal Cannula 2.0 03/14/17 04:00 36.8 89 34 145/64 92 03/14/17 03:30 78 17 124/62 97 03/14/17 03:00 79 21 124/62 94 03/14/17 02:00 36.8 75 20 126/65 97 03/14/17 01:00 77 45 127/67 97 03/14/17 00:04 99 Nasal Cannula 2.0 03/14/17 00:00 76 18 116/59 91 Nasal Cannula 03/13/17 23:00 81 32 118/60 95 Nasal Cannula 2.0 03/13/17 22:00 81 23 122/62 98 Nasal Cannula 03/13/17 21:00 77 31 120/72 98 Nasal Cannula Physical Exam General Appearance: no apparent distress ENT: pharynx normal Neck: + JVD Respiratory/Chest: lungs clear, no respiratory distress, no accessory muscle use Cardiovascular: regular rate, rhythm, no gallop, no murmur Abdomen: normal bowel sounds, non tender, soft, no organomegaly, + distended ( minimal) Extremities: no pedal edema Neurologic/Psychiatric: alert, oriented x 3 Skin: no rash, + pertinent finding (PICC LUE clean) Laboratory Results Last 24 Hours Test 03/14/17 02:07 03/14/17 05:20 03/14/17 08:50 03/14/17 11:56 Bedside Glucose 89 mg/dl White Blood Count 9.33 K/uL Red Blood Count 3.13 M/uL Hemoglobin 8.4 g/dL Hematocrit 26.7 % Mean Corpuscular Volume 85.3 fL Mean Corpuscular Hemoglobin 26.8 pg Mean Corpuscular Hemoglobin Concent 31.5 g/dl Platelet Count 187 K/uL Mean Platelet Volume 9.8 fL RDW Standard Deviation 48.9 fL RDW Coefficient of Variation 15.6 % Neutrophils % (Manual) 92.2 % Lymphocytes % (Manual) 6.1 % Monocytes % (Manual) 1.7 % Neutrophils # (Manual) 8.60 K/uL Total Absolute Neutrophils 8.60 K/uL Lymphocytes # (Manual) 0.57 K/uL Total Absolute Lymphocytes 0.57 K/uL Monocytes # (Manual) 0.16 K/uL Toxic Granulation 1+ Echinocytes 2+ Sodium Level 140 mmol/L Potassium Level 3.7 mmol/L Chloride Level 108 mmol/L Carbon Dioxide Level 25 mmol/L Anion Gap 7.0 mmol/L Blood Urea Nitrogen 51 mg/dl Creatinine 2.00 mg/dl Est Creatinine Clear Calc Drug Dose 22.4 ml/min Estimated GFR () 26.5 Estimated GFR (Non- 22.8 BUN/Creatinine Ratio 25.7 Random Glucose 89 mg/dl Lactic Acid Level 1.2 mmol/L Calcium Level 7.6 mg/dl Phosphorus Level 3.1 mg/dl Magnesium Level 2.1 mg/dl Ionized Calcium 1.09 mmol/l Iron Level 5 mcg/dl Total Iron Binding Capacity 197 mcg/dl Transferrin 143 mg/dl Transferrin % Saturation 2 % Ferritin 44.1 ng/ml Vitamin B12 Level 1251 pg/mL Folate 4.32 ng/mL Thyroid Stimulating Hormone (TSH) 0.771 uIu/ml Test 03/14/17 12:22 Bedside Glucose 100 mg/dl Assessment and Plan 81yo female with: 1. septic shock 2nd to c. diff colitis - former resolved, off pressors & IVF. 2. c. diff colitis - severe - with associated ileus - appreciate GI input. Day #3 of oral vanco and IV flagyl. Continue both. Defer length of Rx to GI. 3. steroid dependent scleroderma - was on stress dose IV hydrocortisone. Now back to prednisone. Wean over next few days. 4. acute renal failure 2nd to ATN in setting of #1 - ARF improving. Repeat BMP in am. 5. CKD stage 3 - baseline Cr 1.5-1.7. BMP in am. 6. hyperthyroidism - TSH normal today; cont same dose of methimazole. 7. chronic diastolic CHF - compensated. Holding her diuretic for now due to ARF and dehydration. 8. folic acid deficiency - 1mg po folic acid daily. 9. anemia of chronic disease +/- iron deficiency - ferrous sulfate 325mg BID. Daily CBC to ensure stability. 10. hyperlipidemia - statin agent. 11. gastroparesis - continue domperidone. 12. sob - had dilated IVC on echo but no signs of decompensated CHF. Could right heart pressures be due to pulmonary HTN? Could she be developing pulmonary fibrosis from scleroderma? PT, OT consults appreciated ok to transfer to telemetry unit Continued [facility] stay due to: abnormal vital signs, inadequate po fluid intake, multiple IV medications needed Discharge planning: uncertain
[2017-03-14] MEDS: FAMOTIDINE 20 MG TAB PO SCH (21:00)
[2017-03-14] MEDS: ATORVASTATIN 20 MG TAB PO SCH (21:33)
[2017-03-15] VITALS (8 sets, daily range): BP systolic 134–149; BP diastolic 73–83; PULSE 64–92; TEMP 36.7–37.1; O2SAT 95–100
[2017-03-15] MEDS: METRONIDAZOLE / NSS 500 MG in PREMIXED NSS 100 ML IV SCH ×3 (02:20→18:20)
[2017-03-15 07:08] LABS: BUN/CREATININE RATIO 28.5 (10-20); CREATININE 1.4 mg/dl (0.60-1.20); POTASSIUM 3.5 mmol/L (3.5-5.1)
--- NOTE | 2017-03-15 09:12 | DIAGNOSTIC IMAGING REPORT ---
KUB HISTORY: Has C-diff: r/o colon distention and measure if present. COMPARISON: Abdominal series 03/14/2017. FINDINGS: No change in the mildly distended gas-filled colon. The cecum measures up to 9 cm in diameter. The mid transverse colon measures up to 5.3 cm in diameter. No dilated small bowel to suggest an obstruction. Right femoral neck pin. Epigastric surgical clips. No renal calculi. No ureteral calculi. No pneumoperitoneum or pneumatosis. IMPRESSION: No change in the mildly distended gas-filled colon as described above. Electronically signed by: Sam Jones M.D. 03/15/2017 9:11 AM Dictated Date/Time: 03/15/2017 9:10 AM
[2017-03-15] MEDS: FAMOTIDINE 20 MG TAB PO SCH ×2 (09:37→19:54)
[2017-03-15] MEDS: METHIMAZOLE 5 MG TAB PO SCH (09:37)
[2017-03-15] MEDS: DOMPERIDONE 10 MG PO SCH ×4 (09:37→21:30)
[2017-03-15] MEDS: FERROUS SULFATE 325 MG TAB PO SCH ×2 (09:37→16:08)
[2017-03-15] MEDS: CALCITRIOL 0.25 MCG CAP PO SCH (09:38)
[2017-03-15] MEDS: VANCOMYCIN HCL 125 MG/2.5ML SOLN PO SCH ×4 (09:38→21:29)
[2017-03-15] MEDS: RASPBERRY SYRUP 5 ML UDP PO SCH ×4 (09:38→21:29)
[2017-03-15] MEDS: HEPARIN SOD 5000 UNIT/0.5 ML CARP SQ SCH ×2 (10:17→21:32)
--- NOTE | 2017-03-15 10:47 | Gastroenterology Progress Note ---
Progress Note Date of Service: March 15, 2017 Subjective Pt evaluation today including: conversation w/ patient, physical exam, chart review, lab review, review of studies, review of inpatient medication list Ms Phoenix is an 81 yr old female admitted with C-diff sepsis. # of BMs decreasing with Vancomycin. KUB today with persistent 5.3cm mild dilation of the cecum, no small bowel distention. Pt C/o "gassiness," and RLQ tenderness on exam. Hemodynamically stable, though Hb decreasing, likely dilutional and effect of sepsis as no evidence of gross GI bleeding. Hb on arrival 13, today 8.4. She has not received transfusion. Review of Systems Constitutional: No fever Respiratory: No cough Cardiac: No chest pain Abdomen: + diarrhea (improving), + pain, + see HPI, No GI bleeding, No nausea, No vomiting Female : No dysuria Neuro: No memory loss Psych: No depression symptoms Heme: No abnormal bleeding/bruising Endo: No fatigue Skin: No rash Medications Current Inpatient Medications Medications (Trade) Dose Ordered Sig/[place] Route Start Time Stop Time Status Last Admin Dose Admin Calcitriol (Rocaltrol Cap) 0.25 mcg QAM PO 03/12/17 09:00 04/11/17 08:59 03/15/17 09:38 0.25 MCG Methimazole (Methimazole Tab) 2.5 mg QAM PO 03/12/17 09:00 04/11/17 08:59 03/15/17 09:37 2.5 MG Tramadol HCl (Ultram Tab) 50 mg HS PRN PO 03/12/17 07:00 04/11/17 06:59 03/13/17 22:12 50 MG Atorvastatin Calcium (Lipitor Tab) 20 mg HS PO 03/13/17 21:00 04/12/17 20:59 03/14/17 21:33 20 MG Vancomycin HCl (Vancomycin Oral Soln) 125 mg QID PO 03/12/17 09:00 03/22/17 08:59 03/15/17 09:38 125 MG Morphine Sulfate (MoRPHine SULFATE INJ) 2 mg Q4H PRN IV 03/12/17 07:15 03/26/17 07:14 03/14/17 15:48 2 MG Acetaminophen (Tylenol Tab) 650 mg Q4H PRN PO 03/12/17 07:15 04/11/17 07:14 Ondansetron HCl (Zofran Inj) 4 mg Q6H PRN IV 03/12/17 07:15 04/11/17 07:14 03/12/17 15:26 4 MG Raspberry 5 ml 5 ml QID PO 03/12/17 09:00 03/26/17 08:59 03/15/17 09:38 5 ML Metronidazole/Prmx (Flagyl / Nss/ Premixed Nss) 100 ml @ 100 mls/hr Q8@0200,1000,1800 IV 03/12/17 11:00 03/26/17 09:59 03/15/17 09:38 100 MLS/HR Heparin Sodium (Porcine) (Heparin Sq 5000 Unit/0.5ml) 5,000 unit Q12 SQ 03/12/17 21:00 04/11/17 20:59 03/15/17 10:17 5,000 UNIT Heparin Sodium (Porcine) (Heparin 10 Unit/ ml 5 ml Flush) 5 ml PRN PRN FLUSH 03/13/17 01:30 04/12/17 01:29 Famotidine (Pepcid Tab) 10 mg BID PO 03/14/17 21:00 04/13/17 20:59 03/15/17 09:37 10 MG Prednisone (PredniSONE TAB) 20 mg Taper DAILY PO 03/15/17 09:00 03/18/18 08:59 03/15/17 09:38 20 MG Domperidone Maleate (Domperidone) 10 mg ACHS PO 03/14/17 16:15 04/13/17 16:14 03/15/17 09:37 10 MG Folic Acid (Folvite Tab) 1 mg QAM PO 03/14/17 16:15 04/13/17 16:14 03/15/17 09:37 1 MG Ferrous Sulfate (Feosol Tab) 325 mg BIDM PO 03/14/17 16:45 04/13/17 16:44 03/15/17 09:37 325 MG Ethacrynic Acid (Edecrin Tab) 75 mg QAM PO 03/15/17 08:15 04/14/17 08:14 UNV Metoprolol Tartrate (Lopressor Tab) 12.5 mg QAM PO 03/15/17 09:00 04/14/17 08:59 UNV Objective Vital Signs Date Time Temp Pulse Resp B/P Pulse Ox O2 Delivery O2 Flow Rate FiO2 03/15/17 08:05 Nasal Cannula 3.0 03/15/17 07:56 36.8 82 18 149/82 99 03/15/17 03:49 37.1 92 21 146/83 98 Nasal Cannula 03/14/17 23:54 36.4 83 20 145/79 99 Room Air 03/14/17 23:34 Nasal Cannula 2.0 03/14/17 20:00 Nasal Cannula 2.0 03/14/17 19:25 37.0 88 22 133/76 100 Nasal Cannula 2.0 03/14/17 16:00 Nasal Cannula 2.0 03/14/17 14:50 37.0 81 20 135/79 96 Nasal Cannula 2.0 03/14/17 12:00 36.6 78 26 137/85 94 Nasal Cannula 2.0 03/14/17 12:00 94 Nasal Cannula 2.0 Physical Exam General Appearance: + mild distress (related to chronic back pain as well as RLQ abdominal tenderness, gassiness), + obese Neck: no JVD Respiratory/Chest: lungs clear, + respiratory distress Cardiovascular: no JVD, no murmur Abdomen: + distended (mild, but not taunt), + tenderness (moderate RLQ tenderness) Extremities: non-tender Neurologic/Psych: alert, normal mood/affect, oriented x 3 Skin: no jaundice Laboratory Results Last 24 Hours Test 03/14/17 11:56 03/14/17 12:22 03/15/17 06:20 Iron Level 5 mcg/dl Total Iron Binding Capacity 197 mcg/dl Transferrin 143 mg/dl Transferrin % Saturation 2 % Ferritin 44.1 ng/ml Vitamin B12 Level 1251 pg/mL Folate 4.32 ng/mL Thyroid Stimulating Hormone (TSH) 0.771 uIu/ml Bedside Glucose 100 mg/dl Sodium Level 141 mmol/L Potassium Level 3.5 mmol/L Chloride Level 108 mmol/L Carbon Dioxide Level 24 mmol/L Anion Gap 9.0 mmol/L Blood Urea Nitrogen 40 mg/dl Creatinine 1.40 mg/dl Est Creatinine Clear Calc Drug Dose 32.8 ml/min Estimated GFR () 40.7 Estimated GFR (Non- 35.1 BUN/Creatinine Ratio 28.5 Random Glucose 84 mg/dl Calcium Level 8.0 mg/dl Assessment and Plan Ms. Phoenix is an 81 yr old female with C-diff, though clinically with sepsis which is improving, blood cultures negative thus far. Hb is decreasing but no evidence of GI bleeding. Her main issue today is cecal ileus. Plan: 1. Relistor. 2. Discontinue narcotic use. 3. Continue full liquid diet. 4. Continue IV flagyl and Vanco po QID at 125mg. 5. Daily KUB. I saw and evaluated the patient. The KUB from today is somewhat worrisome for an evolving ileus (this could be quick worrisome with her history of C diff) Recomendations d/c narcotics please continue with vanco / metronidazole combination therapy daily kubs Relistor today please
[2017-03-15] MEDS ORDERED: TRAMADOL HCL 50 MG TAB PO PRN (12:00)
[2017-03-15] MEDS: METOPROLOL TARTRATE 25 MG TAB PO SCH (12:03)
[2017-03-15] MEDS: ETHACRYNIC ACID 25 MG TAB PO SCH (12:03)
[2017-03-15] MEDS ORDERED: FLUCONAZOLE 50 MG TAB PO ONE (14:30)
[2017-03-15] MEDS: LIDODERM (LIDOCAINE) PATCH 5% TD SCH (16:11)
--- NOTE | 2017-03-15 17:30 | Medical Student: [facility] ---
Med Student Progress Note Date of Service March 15, 2017. Subjective Pt evaluation today including: conversation w/ patient, conversation w/ family , physical exam, chart review, lab review, review of studies Pain: mild controlled with oral pain meds PO Intake: clear liquid diet Voiding: william catheter in place No acute events overnight. Patient reports that she has not had a bowel movement since yesterday. Overall her stomach feels better, but she is still having difficulty eating without discomfort. She reports that her abdominal pain is better today. She also reports some difficulty breathing while lying down which she believes is due to fluid retention. She has some mild irritation at the site of her william catheter. Review of Systems Constitutional: + weight loss, No chills, No fever, No sweats Respiratory: + cough, + shortness of breath Cardiac: + orthopnea, No chest pain Abdomen: + diarrhea, + nausea, + pain Objective Vital Signs Date Time Temp Pulse Resp B/P Pulse Ox O2 Delivery O2 Flow Rate FiO2 03/15/17 15:29 37.1 66 20 134/74 100 Nasal Cannula 3.0 03/15/17 12:03 Nasal Cannula 2.0 03/15/17 11:59 36.7 86 16 138/76 98 03/15/17 08:05 Nasal Cannula 3.0 03/15/17 07:56 36.8 82 18 149/82 99 03/15/17 03:49 37.1 92 21 146/83 98 Nasal Cannula 03/14/17 23:54 36.4 83 20 145/79 99 Room Air 03/14/17 23:34 Nasal Cannula 2.0 03/14/17 20:00 Nasal Cannula 2.0 03/14/17 19:25 37.0 88 22 133/76 100 Nasal Cannula 2.0 Physical Exam General Appearance: no apparent distress, + pertinent finding (ill appearing) ENT: hearing grossly normal (with hearing aid), pharynx normal Neck: supple Respiratory/Chest: chest non-tender, + respiratory distress, + decreased breath sounds Cardiovascular: regular rate, rhythm, no murmur, + JVD, + pertinent finding ( trace pitting edema of lower extremities bilaterally) Abdomen: soft, + tenderness (mild in outer quadrants) Extremities: non-tender, no calf tenderness Neurologic/Psychiatric: alert, oriented x 3 Laboratory Results Last 24 Hours Test 03/15/17 06:20 Sodium Level 141 mmol/L Potassium Level 3.5 mmol/L Chloride Level 108 mmol/L Carbon Dioxide Level 24 mmol/L Anion Gap 9.0 mmol/L Blood Urea Nitrogen 40 mg/dl Creatinine 1.40 mg/dl Est Creatinine Clear Calc Drug Dose 32.8 ml/min Estimated GFR () 40.7 Estimated GFR (Non- 35.1 BUN/Creatinine Ratio 28.5 Random Glucose 84 mg/dl Calcium Level 8.0 mg/dl Medications Current Inpatient Medications Medications (Trade) Dose Ordered Sig/[place] Route Start Time Stop Time Status Last Admin Dose Admin Calcitriol (Rocaltrol Cap) 0.25 mcg QAM PO 03/12/17 09:00 04/11/17 08:59 03/15/17 09:38 0.25 MCG Methimazole (Methimazole Tab) 2.5 mg QAM PO 03/12/17 09:00 04/11/17 08:59 03/15/17 09:37 2.5 MG Atorvastatin Calcium (Lipitor Tab) 20 mg HS PO 03/13/17 21:00 04/12/17 20:59 03/14/17 21:33 20 MG Vancomycin HCl (Vancomycin Oral Soln) 125 mg QID PO 03/12/17 09:00 03/22/17 08:59 03/15/17 16:09 125 MG Morphine Sulfate (MoRPHine SULFATE INJ) 2 mg Q4H PRN IV 03/12/17 07:15 03/26/17 07:14 03/14/17 15:48 2 MG Acetaminophen (Tylenol Tab) 650 mg Q4H PRN PO 03/12/17 07:15 04/11/17 07:14 Ondansetron HCl (Zofran Inj) 4 mg Q6H PRN IV 03/12/17 07:15 04/11/17 07:14 03/12/17 15:26 4 MG Raspberry 5 ml 5 ml QID PO 03/12/17 09:00 03/26/17 08:59 03/15/17 16:09 5 ML Metronidazole/Prmx (Flagyl / Nss/ Premixed Nss) 100 ml @ 100 mls/hr Q8@0200,1000,1800 IV 03/12/17 11:00 03/26/17 09:59 03/15/17 09:38 100 MLS/HR Heparin Sodium (Porcine) (Heparin Sq 5000 Unit/0.5ml) 5,000 unit Q12 SQ 03/12/17 21:00 04/11/17 20:59 03/15/17 10:17 5,000 UNIT Heparin Sodium (Porcine) (Heparin 10 Unit/ ml 5 ml Flush) 5 ml PRN PRN FLUSH 03/13/17 01:30 04/12/17 01:29 03/15/17 15:18 5 ML Famotidine (Pepcid Tab) 10 mg BID PO 03/14/17 21:00 04/13/17 20:59 03/15/17 09:37 10 MG Prednisone (PredniSONE TAB) 20 mg Taper DAILY PO 03/15/17 09:00 03/18/18 08:59 03/15/17 09:38 20 MG Domperidone Maleate (Domperidone) 10 mg ACHS PO 03/14/17 16:15 04/13/17 16:14 03/15/17 16:06 10 MG Folic Acid (Folvite Tab) 1 mg QAM PO 03/14/17 16:15 04/13/17 16:14 03/15/17 09:37 1 MG Ferrous Sulfate (Feosol Tab) 325 mg BIDM PO 03/14/17 16:45 04/13/17 16:44 03/15/17 16:08 325 MG Ethacrynic Acid (Edecrin Tab) 75 mg QAM PO 03/15/17 12:00 04/14/17 11:59 03/15/17 12:03 75 MG Metoprolol Tartrate (Lopressor Tab) 12.5 mg QAM PO 03/15/17 09:00 04/14/17 08:59 03/15/17 12:03 12.5 MG Tramadol HCl (Ultram Tab) 50 mg Q6H PRN PO 03/15/17 12:00 04/14/17 11:59 Lidocaine (Lidoderm Patch 5%) 2 patch QAM TD 03/15/17 14:30 04/14/17 14:29 03/15/17 16:11 2 PATCH Acetaminophen/ Hydrocodone Bitart ([place] 5/325 Tab) 0.5 tab Q6H PRN PO 03/15/17 13:30 03/29/17 13:29 Miscellaneous 2 ea 2 ea DAILY@21 N/A 03/15/17 21:00 04/14/17 20:59 Ethacrynate Sodium/Sodium Chloride (Edecrin IV Inj/ Nss 100ml) 75 ml @ 150 mls/hr TODAY@1900 IV 03/15/17 19:00 03/15/17 23:59 Assessment and Plan Problems Abdominal pain Benign hypertension Chronic congestive heart failure Colitis dextroscoliosis Gastroesophageal reflux disease Osteoporosis Assessment and Plan: This is an 81 yo female who presents with sepsis secondary to severe recurrent c. diff colitis and acute on chronic kidney disease. 1. Sepsis: -Blood pressure continues to be stable. -Prednisone taper was started at 20 mg and will be tapered to her chronic dose of 5 mg. -Continue IV metronidazole and PO vancomycin for source infection 2. C diff colitis: -Continue IV metronidazole and PO vancomycin. -Continue to advance diet as tolerated and watch for possible mesenteric ischemia due to history. 3. CORNELL: -Creatinine has returned to baseline today. -Likely ATN secondary to sepsis. -IV hydration was discontinued -Continue to monitor serial PRPs. -Avoid nephrotoxic medications. 4. Diastolic CHF: -Patient appears fluid overloaded today -Gave ethacrynic acid 75 mg po this afternoon. -Ordered ethacrynic acid 75 mg IV to be given tonight -Will continue to monitor fluid status 5. HTN: -Metoprolol resumed today and will be given 12.5 mg po qam. 6. Anemia: -Iron studies indicated a mixed anemia, with low folate. -Continue to follow blood counts daily. -Ferrous sulfate 325 mg po bid -Folic acid 1 mg po qam 7. DVT prophylaxis: -Receiving lovenox sub-q for prophylaxis. Continued [facility] stay due to: abnormal vital signs, inadequate po fluid intake, multiple IV medications needed Discharge planning: uncertain
[2017-03-15] MEDS ORDERED: SODIUM CHLORIDE 0.9% IV SCH (19:00)
[2017-03-15] MEDS ORDERED: ETHACRYNATE SOD FOR INJ 50 MG VIAL IV SCH (19:00)
[2017-03-15] MEDS ORDERED: [UNRECOGNIZED DRUG - OTHER] IV SCH (19:00)
[2017-03-15] MEDS ORDERED: POTASSIUM CHLORIDE 10 MEQ TABCR PO STA (20:43)
--- NOTE | 2017-03-15 20:57 | Progress Note ---
Subjective Date of Service: March 15, 2017. Subjective Pt evaluation today including: conversation w/ patient, physical exam, chart review, lab review, review of studies, review of inpatient medication list Pain: back (right lumbar region); abdomen PO Intake: fair at best Voiding: william catheter in place tele stable overnight she continues with mild lower abdominal pain denies vomiting main concern is that of dyspnea, wheezing, and orthopnea she is also concerned about her blood pressure "getting high" very weak, can barely get out of bed with that said she is hopeful for d/c home ultimately Problem List Medical Problems: (1) Abdominal pain Status: Acute (2) Hypotension Status: Acute (3) Ischemic colitis Status: Acute (4) Rectal bleed Status: Acute Review of Systems Constitutional: No chills, No fever Respiratory: + cough, + dyspnea on exertion, + shortness of breath, + wheezing Cardiac: + orthopnea, No chest pain Abdomen: No pain Objective Vital Signs Date Time Temp Pulse Resp B/P Pulse Ox O2 Delivery O2 Flow Rate FiO2 03/15/17 20:00 99 Room Air 03/15/17 19:33 36.9 64 20 147/79 97 Room Air 03/15/17 16:00 100 Nasal Cannula 3.0 03/15/17 15:29 37.1 66 20 134/74 100 Nasal Cannula 3.0 03/15/17 12:03 Nasal Cannula 2.0 03/15/17 11:59 36.7 86 16 138/76 98 03/15/17 08:05 Nasal Cannula 3.0 03/15/17 07:56 36.8 82 18 149/82 99 03/15/17 03:49 37.1 92 21 146/83 98 Nasal Cannula 03/14/17 23:54 36.4 83 20 145/79 99 Room Air 03/14/17 23:34 Nasal Cannula 2.0 Physical Exam General Appearance: no apparent distress ENT: pharynx normal Neck: + JVD Respiratory/Chest: no respiratory distress, no accessory muscle use, + wheezing Cardiovascular: regular rate, rhythm, no gallop, no murmur Abdomen: normal bowel sounds, soft, no organomegaly, + tenderness (mild, b/l lower quadrants) Extremities: + pedal edema (1+ b/l) Neurologic/Psychiatric: alert, oriented x 3 Skin: + pertinent finding (PICC line, LUE - clean) Comments: back - scar over midline in lumbar region; paraspinal tenderness on right along with some midline tenderness vulva - chaperoned by staff - white, milky discharge c/w marcelino Laboratory Results Last 24 Hours Test 03/15/17 06:20 Sodium Level 141 mmol/L Potassium Level 3.5 mmol/L Chloride Level 108 mmol/L Carbon Dioxide Level 24 mmol/L Anion Gap 9.0 mmol/L Blood Urea Nitrogen 40 mg/dl Creatinine 1.40 mg/dl Est Creatinine Clear Calc Drug Dose 32.8 ml/min Estimated GFR () 40.7 Estimated GFR (Non- 35.1 BUN/Creatinine Ratio 28.5 Random Glucose 84 mg/dl Calcium Level 8.0 mg/dl Assessment and Plan 81yo female with: 1. septic shock 2nd to c. diff colitis - shock resolved, pressors off, out of ICU, doing well. 2. c. diff colitis - severe - with associated ileus - appreciate GI input. Overall improving. Day #4 of oral vanco and IV flagyl. Continue both. Defer length of Rx to GI. 3. steroid dependent scleroderma - was on stress dose IV hydrocortisone. Now back to prednisone. Continue to wean. 4. acute renal failure 2nd to ATN in setting of #1 - resolved. Cr now 1.4 and even better than baseline. BMP in am. 5. CKD stage 3 - stable. 6. hyperthyroidism - TSH normal; cont same dose of methimazole. 7. acute/chronic diastolic CHF - decompensated due to considerable fluid resuscitation for her shock and off all cardiac meds. Resume her beta kay. Gave IV and oral dose of ethacrynic acid today. Strict I's and O's. Fluid restrict 1500cc. 8. folic acid deficiency - 1mg po folic acid daily. 9. anemia of chronic disease +/- iron deficiency - ferrous sulfate 325mg BID. Daily CBC to ensure stability. 10. hyperlipidemia - statin agent. 11. gastroparesis - continue domperidone. 12. back pain - lidoderm patches prn. L-spine x-rays, r/o compression fracture. 13. vaginitis - marcelino - diflucan 150mg po x 1. PT, OT consults appreciated will likely need rehab can likely transfer to med/surg in AM Continued [facility] stay due to: abnormal vital signs, inadequate po fluid intake, inadequate oral pain control, voiding difficulties, ambulation difficulties, multiple IV medications needed Discharge planning: uncertain
[2017-03-15] MEDS: ATORVASTATIN 20 MG TAB PO SCH (21:31)
[2017-03-15] MEDS: HYDROCODONE/ACETAMOPHEN 5/325MG TAB PO PRN (21:40)
[2017-03-16] VITALS (10 sets, daily range): BP systolic 134–142; BP diastolic 63–77; PULSE 59–82; TEMP 36.9–37.5; O2SAT 93–96
[2017-03-16] MEDS: METRONIDAZOLE / NSS 500 MG in PREMIXED NSS 100 ML IV SCH ×3 (02:16→16:24)
[2017-03-16] MEDS: DOMPERIDONE 10 MG PO SCH ×4 (06:37→21:21)
[2017-03-16 06:40] LABS: HEMATOCRIT 27.3 % (37-47); MEAN CORPUSCULAR HEMOGLOBIN 26.2 pg (25-34); MEAN CORPUSCULAR HGB CONC 30.8 g/dl (32-36); MEAN PLATELET VOLUME 8.5 fL (7.4-10.4); PLATELET COUNT 177 K/uL (130-400); RED BLOOD COUNT 3.21 M/uL (4.2-5.4); WHITE BLOOD COUNT 10.58 K/uL (4.8-10.8)
[2017-03-16 07:16] LABS: CALCIUM 8.6 mg/dl (8.5-10.1); CREATININE 1.5 mg/dl (0.60-1.20); POTASSIUM 3.1 mmol/L (3.5-5.1)
[2017-03-16] MEDS ORDERED: METHYLNALTREXONE BROMIDE INJ 12 MG/0.6 ML SYR SQ ONE (07:45)
[2017-03-16] MEDS: CALCITRIOL 0.25 MCG CAP PO SCH (08:16)
[2017-03-16] MEDS: METHIMAZOLE 5 MG TAB PO SCH (08:16)
[2017-03-16] MEDS: METOPROLOL TARTRATE 25 MG TAB PO SCH (08:16)
[2017-03-16] MEDS: FAMOTIDINE 20 MG TAB PO SCH (08:17)
[2017-03-16] MEDS: FERROUS SULFATE 325 MG TAB PO SCH ×2 (08:17→16:24)
[2017-03-16] MEDS: ETHACRYNIC ACID 25 MG TAB PO SCH (08:17)
[2017-03-16] MEDS: RASPBERRY SYRUP 5 ML UDP PO SCH ×4 (08:18→22:18)
[2017-03-16] MEDS: VANCOMYCIN HCL 125 MG/2.5ML SOLN PO SCH ×4 (08:18→22:17)
[2017-03-16] MEDS: HEPARIN SOD 5000 UNIT/0.5 ML CARP SQ SCH ×2 (08:28→21:23)
[2017-03-16] MEDS: LIDODERM (LIDOCAINE) PATCH 5% TD SCH (08:29)
[2017-03-16] MEDS: ONDANSETRON INJ 2 MG/ML 2 ML VIAL IV PRN ×3 (08:38→22:50)
[2017-03-16] MEDS: POTASSIUM CHLORIDE 10 MEQ TABCR PO ONE ×2 (09:25→09:33)
[2017-03-16] MEDS ORDERED: POTASSIUM CHLORIDE 10 MEQ TABCR PO STA (09:32)
[2017-03-16] MEDS ORDERED: POTASSIUM CHLR 20 MEQ / WTR 20 MEQ in PREMIXED WATER 100 ML IV SCH (09:45)
--- NOTE | 2017-03-16 11:12 | Gastroenterology Progress Note ---
Progress Note Date of Service: March 16, 2017 Subjective Pt evaluation today including: conversation w/ patient, physical exam, chart review, lab review Pt was seen and evaluated this AM. Had 4 episodes of diarrhea last night and 4 episodes this morning. She was given a dose of relistor this AM for imaging concerning for ileus. Her abdominal pain is greatly relieved - still has bilateral abdominal cramping, almost constant. No black/bloody stools. + nausea after morning pills (she tells me she takes almost 30 at the same time) + burping + belching. No epigastric pain or regurgitation. Was using omeprazole as an out patient. Currently on pepcid while admitted. KUB 03/15/17: No change in the mildly distended gas-filled colon. The cecum measures up to 9 cm in diameter. The mid transverse colon measures up to 5.3 cm in diameter. No dilated small bowel to suggest an obstruction. Right femoral neck pin. Epigastric surgical clips. No renal calculi. No ureteral calculi. No pneumoperitoneum or pneumatosis. Review of Systems Constitutional: No chills, No fever Respiratory: No cough Cardiac: No chest pain Abdomen: + diarrhea, + pain (bilateral lower quadrant cramping, almost constant ), No GI bleeding, No constipation, No nausea, No vomiting Medications Current Inpatient Medications Medications (Trade) Dose Ordered Sig/[place] Route Start Time Stop Time Status Last Admin Dose Admin Calcitriol (Rocaltrol Cap) 0.25 mcg QAM PO 03/12/17 09:00 04/11/17 08:59 03/16/17 08:16 0.25 MCG Methimazole (Methimazole Tab) 2.5 mg QAM PO 03/12/17 09:00 04/11/17 08:59 03/16/17 08:16 2.5 MG Atorvastatin Calcium (Lipitor Tab) 20 mg HS PO 03/13/17 21:00 04/12/17 20:59 03/15/17 21:31 20 MG Vancomycin HCl (Vancomycin Oral Soln) 125 mg QID PO 03/12/17 09:00 03/22/17 08:59 03/16/17 08:18 125 MG Morphine Sulfate (MoRPHine SULFATE INJ) 2 mg Q4H PRN IV 03/12/17 07:15 03/26/17 07:14 03/14/17 15:48 2 MG Acetaminophen (Tylenol Tab) 650 mg Q4H PRN PO 03/12/17 07:15 04/11/17 07:14 Ondansetron HCl (Zofran Inj) 4 mg Q6H PRN IV 03/12/17 07:15 04/11/17 07:14 03/16/17 08:38 4 MG Raspberry 5 ml 5 ml QID PO 03/12/17 09:00 03/26/17 08:59 03/16/17 08:18 5 ML Metronidazole/Prmx (Flagyl / Nss/ Premixed Nss) 100 ml @ 100 mls/hr Q8@0200,1000,1800 IV 03/12/17 11:00 03/26/17 09:59 03/16/17 08:30 100 MLS/HR Heparin Sodium (Porcine) (Heparin Sq 5000 Unit/0.5ml) 5,000 unit Q12 SQ 03/12/17 21:00 04/11/17 20:59 03/16/17 08:28 5,000 UNIT Heparin Sodium (Porcine) (Heparin 10 Unit/ ml 5 ml Flush) 5 ml PRN PRN FLUSH 03/13/17 01:30 04/12/17 01:29 03/15/17 15:18 5 ML Famotidine (Pepcid Tab) 10 mg BID PO 03/14/17 21:00 04/13/17 20:59 03/16/17 08:17 10 MG Prednisone (PredniSONE TAB) 10 mg Taper DAILY PO 03/15/17 09:00 03/18/18 08:59 03/16/17 08:16 10 MG Domperidone Maleate (Domperidone) 10 mg ACHS PO 03/14/17 16:15 04/13/17 16:14 03/16/17 06:37 10 MG Folic Acid (Folvite Tab) 1 mg QAM PO 03/14/17 16:15 04/13/17 16:14 03/16/17 08:17 1 MG Ferrous Sulfate (Feosol Tab) 325 mg BIDM PO 03/14/17 16:45 04/13/17 16:44 03/16/17 08:17 325 MG Ethacrynic Acid (Edecrin Tab) 75 mg QAM PO 03/15/17 12:00 04/14/17 11:59 03/16/17 08:17 75 MG Metoprolol Tartrate (Lopressor Tab) 12.5 mg QAM PO 03/15/17 09:00 04/14/17 08:59 03/16/17 08:16 12.5 MG Tramadol HCl (Ultram Tab) 50 mg Q6H PRN PO 03/15/17 12:00 04/14/17 11:59 Lidocaine (Lidoderm Patch 5%) 2 patch QAM TD 03/15/17 14:30 04/14/17 14:29 03/15/17 16:11 2 PATCH Acetaminophen/ Hydrocodone Bitart ([place] 5/325 Tab) 0.5 tab Q6H PRN PO 03/15/17 13:30 03/29/17 13:29 03/15/17 21:40 0.5 TAB Miscellaneous (Remove Lidoderm Patch) 2 ea DAILY@21 N/A 03/15/17 21:00 04/14/17 20:59 03/15/17 21:41 2 EA Potassium Chloride (Klor-Con Tab) 20 meq BID PO 03/16/17 21:00 04/15/17 20:59 Objective Vital Signs Date Time Temp Pulse Resp B/P Pulse Ox O2 Delivery O2 Flow Rate FiO2 03/16/17 08:31 36.9 59 18 142/63 96 03/16/17 08:00 93 Nasal Cannula 2.0 03/16/17 04:00 93 Nasal Cannula 03/16/17 03:45 36.9 78 19 136/72 93 Nasal Cannula 2.0 03/16/17 00:00 95 Nasal Cannula 03/15/17 23:20 37.0 75 19 147/73 95 Nasal Cannula 2.0 03/15/17 20:00 99 Room Air 03/15/17 19:33 36.9 64 20 147/79 97 Room Air 03/15/17 16:00 100 Nasal Cannula 3.0 03/15/17 15:29 37.1 66 20 134/74 100 Nasal Cannula 3.0 03/15/17 12:03 Nasal Cannula 2.0 03/15/17 11:59 36.7 86 16 138/76 98 Physical Exam General Appearance: no apparent distress Eyes: PERRL ENT: hearing grossly normal Neck: supple, trachea midline Respiratory/Chest: no respiratory distress, no accessory muscle use, + wheezing Cardiovascular: regular rate, rhythm, no gallop, no JVD, no murmur Abdomen: normal bowel sounds, soft, no organomegaly, no pulsatile mass Neurologic/Psych: alert, normal mood/affect, oriented x 3 Skin: normal color, no jaundice, warm/dry, no rash Laboratory Results Last 24 Hours Test 03/16/17 06:35 White Blood Count 10.58 K/uL Red Blood Count 3.21 M/uL Hemoglobin 8.4 g/dL Hematocrit 27.3 % Mean Corpuscular Volume 85.0 fL Mean Corpuscular Hemoglobin 26.2 pg Mean Corpuscular Hemoglobin Concent 30.8 g/dl RDW Standard Deviation 48.3 fL RDW Coefficient of Variation 15.3 % Platelet Count 177 K/uL Mean Platelet Volume 8.5 fL Sodium Level 140 mmol/L Potassium Level 3.1 mmol/L Chloride Level 103 mmol/L Carbon Dioxide Level 30 mmol/L Anion Gap 7.0 mmol/L Blood Urea Nitrogen 40 mg/dl Creatinine 1.50 mg/dl Est Creatinine Clear Calc Drug Dose 30.2 ml/min Estimated GFR () 37.5 Estimated GFR (Non- 32.3 BUN/Creatinine Ratio 27.0 Random Glucose 78 mg/dl Calcium Level 8.6 mg/dl Magnesium Level 2.0 mg/dl Assessment and Plan Ms. Phoenix is an 81 yr old female with C-diff, though clinically with sepsis which is improving, blood cultures negative thus far. Hb is decreasing but no evidence of GI bleeding. Her main issue today is cecal ileus. Passing stool presently. Had a dose of relistor yesterday. May repeat Relistor 03/17/17 if needed Hold narcotics Continue full liquid diet. Continue IV flagyl while admitted and Vanco po QID at 125mg x 2 weeks If no improvement of C.diff symptoms may use 250 mg QID for remaining course Her last episode of c.diff was in 2011 - tapering course not indicated unless still symptomatic at tend of 2 week treatment Suggest low dose daily PPI given report of nausea after medication use and burping/belching on pepcid Daily KUB until resolution of dilation I saw an evaluated the patient (KUB not yet done). She notes her distension is better after the relistor this am but is now having multiple bm. Recomendations daily KUB continue Flagyl / Vancomycin Consider ID consultation (patient would like an ID eval).
[2017-03-16 16:17] LABS: BUN/CREATININE RATIO 23.8 (10-20); CREATININE 1.6 mg/dl (0.60-1.20); MAGNESIUM 1.8 mg/dl (1.8-2.4); POTASSIUM 3.6 mmol/L (3.5-5.1)
[2017-03-16] MEDS: HYDROCODONE/ACETAMOPHEN 5/325MG TAB PO PRN ×2 (16:34→22:50)
--- NOTE | 2017-03-16 17:49 | Medical Student: [facility] ---
Med Student Progress Note Date of Service March 16, 2017. Subjective Pt evaluation today including: conversation w/ patient, physical exam, chart review, lab review, review of studies Pain: moderate PO Intake: clear liquids Voiding: william catheter in place Patient reports 4-6 episodes of diarrhea overnight. She also reports intractable cramping in her medial feet this morning which she attributes to low potassium. The cramping is not relieved by massage and has been excruciating per patient reports. Abdominal pain has resolved for the most part and she feels more comfortable rolling in bed. She also reports less shortness of breath, and less wheezing, but still has some while recumbent. No other complaints at this time. Review of Systems All Other Systems: Reviewed and Negative (except as noted in HPI) Objective Vital Signs Date Time Temp Pulse Resp B/P Pulse Ox O2 Delivery O2 Flow Rate FiO2 03/16/17 16:00 96 Nasal Cannula 2.0 03/16/17 15:20 37.0 82 20 134/75 96 Room Air 03/16/17 12:00 95 Nasal Cannula 2.0 03/16/17 11:52 36.9 66 18 134/74 95 03/16/17 08:31 36.9 59 18 142/63 96 03/16/17 08:00 93 Nasal Cannula 2.0 03/16/17 04:00 93 Nasal Cannula 03/16/17 03:45 36.9 78 19 136/72 93 Nasal Cannula 2.0 03/16/17 00:00 95 Nasal Cannula 03/15/17 23:20 37.0 75 19 147/73 95 Nasal Cannula 2.0 03/15/17 20:00 99 Room Air 03/15/17 19:33 36.9 64 20 147/79 97 Room Air Physical Exam General Appearance: + moderate distress, + pertinent finding (ill-appearing) ENT: hearing grossly normal, pharynx normal Neck: supple, + JVD Respiratory/Chest: chest non-tender, normal breath sounds, no respiratory distress, + crackles (bibasilar wet crackles) Cardiovascular: regular rate, rhythm, no edema, no gallop, no murmur Abdomen: non tender, soft Extremities: non-tender, no pedal edema Neurologic/Psychiatric: alert, oriented x 3 Laboratory Results Last 24 Hours Test 03/16/17 06:35 03/16/17 15:25 White Blood Count 10.58 K/uL Red Blood Count 3.21 M/uL Hemoglobin 8.4 g/dL Hematocrit 27.3 % Mean Corpuscular Volume 85.0 fL Mean Corpuscular Hemoglobin 26.2 pg Mean Corpuscular Hemoglobin Concent 30.8 g/dl RDW Standard Deviation 48.3 fL RDW Coefficient of Variation 15.3 % Platelet Count 177 K/uL Mean Platelet Volume 8.5 fL Sodium Level 140 mmol/L 136 mmol/L Potassium Level 3.1 mmol/L 3.6 mmol/L Chloride Level 103 mmol/L 99 mmol/L Carbon Dioxide Level 30 mmol/L 30 mmol/L Anion Gap 7.0 mmol/L 7.0 mmol/L Blood Urea Nitrogen 40 mg/dl 38 mg/dl Creatinine 1.50 mg/dl 1.60 mg/dl Est Creatinine Clear Calc Drug Dose 30.2 ml/min 28.3 ml/min Estimated GFR () 37.5 34.7 Estimated GFR (Non- 32.3 29.9 BUN/Creatinine Ratio 27.0 23.8 Random Glucose 78 mg/dl 156 mg/dl Calcium Level 8.6 mg/dl 9.0 mg/dl Magnesium Level 2.0 mg/dl 1.8 mg/dl Medications Current Inpatient Medications Medications (Trade) Dose Ordered Sig/[place] Route Start Time Stop Time Status Last Admin Dose Admin Calcitriol (Rocaltrol Cap) 0.25 mcg QAM PO 03/12/17 09:00 04/11/17 08:59 03/16/17 08:16 0.25 MCG Methimazole (Methimazole Tab) 2.5 mg QAM PO 03/12/17 09:00 04/11/17 08:59 03/16/17 08:16 2.5 MG Atorvastatin Calcium (Lipitor Tab) 20 mg HS PO 03/13/17 21:00 04/12/17 20:59 03/15/17 21:31 20 MG Vancomycin HCl (Vancomycin Oral Soln) 125 mg QID PO 03/12/17 09:00 03/22/17 08:59 03/16/17 16:24 125 MG Morphine Sulfate (MoRPHine SULFATE INJ) 2 mg Q4H PRN IV 03/12/17 07:15 03/26/17 07:14 03/14/17 15:48 2 MG Acetaminophen (Tylenol Tab) 650 mg Q4H PRN PO 03/12/17 07:15 04/11/17 07:14 Ondansetron HCl (Zofran Inj) 4 mg Q6H PRN IV 03/12/17 07:15 04/11/17 07:14 03/16/17 17:25 4 MG Raspberry 5 ml 5 ml QID PO 03/12/17 09:00 03/26/17 08:59 03/16/17 16:23 5 ML Metronidazole/Prmx (Flagyl / Nss/ Premixed Nss) 100 ml @ 100 mls/hr Q8@0200,1000,1800 IV 03/12/17 11:00 03/26/17 09:59 03/16/17 16:24 100 MLS/HR Heparin Sodium (Porcine) (Heparin Sq 5000 Unit/0.5ml) 5,000 unit Q12 SQ 03/12/17 21:00 04/11/17 20:59 03/16/17 08:28 5,000 UNIT Heparin Sodium (Porcine) (Heparin 10 Unit/ ml 5 ml Flush) 5 ml PRN PRN FLUSH 03/13/17 01:30 04/12/17 01:29 03/15/17 15:18 5 ML Famotidine (Pepcid Tab) 10 mg BID PO 03/14/17 21:00 04/13/17 20:59 03/16/17 08:17 10 MG Prednisone (PredniSONE TAB) 10 mg Taper DAILY PO 03/15/17 09:00 03/18/18 08:59 03/16/17 08:16 10 MG Domperidone Maleate (Domperidone) 10 mg ACHS PO 03/14/17 16:15 04/13/17 16:14 03/16/17 16:23 10 MG Folic Acid (Folvite Tab) 1 mg QAM PO 03/14/17 16:15 04/13/17 16:14 03/16/17 08:17 1 MG Ferrous Sulfate (Feosol Tab) 325 mg BIDM PO 03/14/17 16:45 04/13/17 16:44 03/16/17 16:24 325 MG Ethacrynic Acid (Edecrin Tab) 75 mg QAM PO 03/15/17 12:00 04/14/17 11:59 03/16/17 08:17 75 MG Metoprolol Tartrate (Lopressor Tab) 12.5 mg QAM PO 03/15/17 09:00 04/14/17 08:59 03/16/17 08:16 12.5 MG Tramadol HCl (Ultram Tab) 50 mg Q6H PRN PO 03/15/17 12:00 04/14/17 11:59 Lidocaine (Lidoderm Patch 5%) 2 patch QAM TD 03/15/17 14:30 04/14/17 14:29 03/15/17 16:11 2 PATCH Acetaminophen/ Hydrocodone Bitart ([place] 5/325 Tab) 0.5 tab Q6H PRN PO 03/15/17 13:30 03/29/17 13:29 03/16/17 16:34 0.5 TAB Miscellaneous (Remove Lidoderm Patch) 2 ea DAILY@21 N/A 03/15/17 21:00 04/14/17 20:59 03/15/17 21:41 2 EA Potassium Chloride (Klor-Con Tab) 20 meq BID PO 03/16/17 21:00 04/15/17 20:59 Assessment and Plan Problems Benign hypertension Colitis Hyperlipidemia Assessment and Plan: This is an 81 yo female who presents with sepsis secondary to severe recurrent c. diff colitis and acute on chronic kidney disease. 1. Sepsis: -Blood pressure continues to be stable. -Prednisone taper was started at 20 mg and will be tapered to her chronic dose of 5 mg. -Continue IV metronidazole and PO vancomycin for source infection 2. C diff colitis: -Diarrhea has returned. Will continue full course of vancomycin before considering alternate therapies. -Continue IV metronidazole and PO vancomycin. -Continue to advance diet as tolerated and watch for possible mesenteric ischemia due to history. 3. CORNELL: -Creatinine has returned to baseline. -Likely ATN secondary to sepsis. -Continue to monitor serial PRPs. -Diuresis continues, possibly due to post ATN diuresis combined with medical diuresis. -Avoid nephrotoxic medications. 4. Diastolic CHF: -Patient appears less volume overload today -Continue ethacrynic acid 75 mg po qam. -Will continue to monitor fluid status 5. HTN: -Metoprolol resumed today and will be given 12.5 mg po qam. -Can consider resuming lisinopril if kidney function remains stable. 6. Anemia: -Iron studies indicated a mixed anemia, with low folate. -Continue to follow blood counts daily. -Ferrous sulfate 325 mg po bid -Folic acid 1 mg po qam 7. DVT prophylaxis: -Receiving lovenox sub-q for prophylaxis. Continued [facility] stay due to: abnormal vital signs, inadequate po fluid intake, inadequate oral pain control, voiding difficulties, ambulation difficulties, multiple IV medications needed Discharge planning: uncertain
[2017-03-16] MEDS: POTASSIUM CHLORIDE 20 MEQ TABCR PO SCH (21:09)
[2017-03-16] MEDS: PRAMIPEXOLE DIHYDROCHLORIDE 0.25MG TAB PO SCH (21:24)
[2017-03-16] MEDS: ATORVASTATIN 20 MG TAB PO SCH (21:24)
[2017-03-16] MEDS: LISINOPRIL 10 MG TAB PO SCH (21:25)
[2017-03-17] VITALS: BP 134/75; PULSE 77; TEMP 36.9; O2SAT 96
[2017-03-17] MEDS: METRONIDAZOLE / NSS 500 MG in PREMIXED NSS 100 ML IV SCH (02:13)
--- NOTE | 2017-03-17 02:40 | Progress Note ---
Subjective Date of Service: March 16, 2017. Subjective Pt evaluation today including: conversation w/ patient, physical exam, chart review, lab review, review of studies, review of inpatient medication list Pain: abdomen, feet PO Intake: poor Voiding: william catheter in place tele stable overnight she has multiple complaints including cramps in her feet/legs, worst this AM copious, frequent diarrhea since last pm stomach cramps lack of appetite ongoing cough/wheeze but improved Problem List Medical Problems: (1) Abdominal pain Status: Acute (2) Hypotension Status: Acute (3) Ischemic colitis Status: Acute (4) Rectal bleed Status: Acute Review of Systems Constitutional: No chills, No fever Respiratory: + cough Cardiac: No chest pain Abdomen: + diarrhea, + nausea, + pain, No vomiting Objective Vital Signs Date Time Temp Pulse Resp B/P Pulse Ox O2 Delivery O2 Flow Rate FiO2 03/16/17 19:37 37.5 79 20 137/77 96 Room Air 03/16/17 16:00 96 Nasal Cannula 2.0 03/16/17 15:20 37.0 82 20 134/75 96 Room Air 03/16/17 12:00 95 Nasal Cannula 2.0 03/16/17 11:52 36.9 66 18 134/74 95 03/16/17 08:31 36.9 59 18 142/63 96 03/16/17 08:00 93 Nasal Cannula 2.0 03/16/17 04:00 93 Nasal Cannula 03/16/17 03:45 36.9 78 19 136/72 93 Nasal Cannula 2.0 03/16/17 00:00 95 Nasal Cannula 03/15/17 23:20 37.0 75 19 147/73 95 Nasal Cannula 2.0 Physical Exam General Appearance: no apparent distress ENT: pharynx normal Neck: + JVD Respiratory/Chest: no respiratory distress, no accessory muscle use, + rales ( bases), + wheezing (mild - but improved from prior exam) Cardiovascular: regular rate, rhythm, no gallop, no murmur Abdomen: normal bowel sounds, soft, no organomegaly, + tenderness (modest, b/l lower quadrants) Extremities: + pedal edema (trace b/l ) Neurologic/Psychiatric: alert, oriented x 3 Skin: + pertinent finding (PICC line LUE - clean) Laboratory Results Last 24 Hours Test 03/16/17 06:35 03/16/17 15:25 White Blood Count 10.58 K/uL Red Blood Count 3.21 M/uL Hemoglobin 8.4 g/dL Hematocrit 27.3 % Mean Corpuscular Volume 85.0 fL Mean Corpuscular Hemoglobin 26.2 pg Mean Corpuscular Hemoglobin Concent 30.8 g/dl RDW Standard Deviation 48.3 fL RDW Coefficient of Variation 15.3 % Platelet Count 177 K/uL Mean Platelet Volume 8.5 fL Sodium Level 140 mmol/L 136 mmol/L Potassium Level 3.1 mmol/L 3.6 mmol/L Chloride Level 103 mmol/L 99 mmol/L Carbon Dioxide Level 30 mmol/L 30 mmol/L Anion Gap 7.0 mmol/L 7.0 mmol/L Blood Urea Nitrogen 40 mg/dl 38 mg/dl Creatinine 1.50 mg/dl 1.60 mg/dl Est Creatinine Clear Calc Drug Dose 30.2 ml/min 28.3 ml/min Estimated GFR () 37.5 34.7 Estimated GFR (Non- 32.3 29.9 BUN/Creatinine Ratio 27.0 23.8 Random Glucose 78 mg/dl 156 mg/dl Calcium Level 8.6 mg/dl 9.0 mg/dl Magnesium Level 2.0 mg/dl 1.8 mg/dl Assessment and Plan 81yo female with: 1. septic shock 2nd to c. diff colitis - shock resolved/ 2. c. diff colitis - severe - with associated ileus - making slow progress. appreciate GI input. Day #5 of oral vanco and IV flagyl. Continue both meds; defer antibiotic selection and length of Rx to GI. 3. steroid dependent scleroderma - was on stress dose IV hydrocortisone for #1 , now on tapering prednisone. 4. acute renal failure 2nd to ATN in setting of #1 - resolved. Cr now 1.6. 5. CKD stage 3 - stable and at baseline. 6. hyperthyroidism - TSH normal; cont same dose of methimazole. 7. acute/chronic diastolic CHF - markedly improved, net negative 6+ liters last 1-2 days. Cont ethacrynic acid and beta kay. Resume GUILLERMO. Strict I's and O's. 8. folic acid deficiency - 1mg po folic acid daily. 9. anemia of chronic disease +/- iron deficiency - ferrous sulfate 325mg BID. CBC in am. 10. hyperlipidemia - statin agent. 11. gastroparesis - continue domperidone. 12. back pain - lidoderm patches prn. L-spine x-rays when able, r/o compression fracture. 13. vaginitis - marcelino - diflucan 150mg po x 1. 14. hypokalemia - replace PO and IV; repeat K this afternoon was normal. 15. cramps in legs - being made worse by hypokalemia; iron def can contribute as well. Still had cramps even despite correction of K. Low-dose mirapex at HS. transfer to med/surg PT, OT needs rehab Continued [facility] stay due to: abnormal vital signs, inadequate po fluid intake, inadequate oral pain control, voiding difficulties, ambulation difficulties, multiple IV medications needed Discharge planning: uncertain
[2017-03-17] MEDS: MoRPHine SULFATE 2 MG/ML CARP IV PRN (05:50)
[2017-03-17] MEDS: DOMPERIDONE 10 MG PO SCH ×4 (05:50→21:56)
[2017-03-17 06:10] LABS: HEMATOCRIT 29.8 % (37-47); MEAN CELL VOLUME 84.9 fL (80-100); MEAN CORPUSCULAR HEMOGLOBIN 26.5 pg (25-34); MEAN CORPUSCULAR HGB CONC 31.2 g/dl (32-36); MEAN PLATELET VOLUME 9.4 fL (7.4-10.4); PLATELET COUNT 199 K/uL (130-400); RED BLOOD COUNT 3.51 M/uL (4.2-5.4); WHITE BLOOD COUNT 11.48 K/uL (4.8-10.8)
[2017-03-17 06:44] LABS: BUN/CREATININE RATIO 25.5 (10-20); CREATININE 1.5 mg/dl (0.60-1.20); POTASSIUM 3.4 mmol/L (3.5-5.1)
[2017-03-17] MEDS: LIDODERM (LIDOCAINE) PATCH 5% TD SCH (08:00)
[2017-03-17 08:01] VITALS: BP 147/71; PULSE 93; TEMP 37; O2SAT 96
[2017-03-17] MEDS: ONDANSETRON INJ 2 MG/ML 2 ML VIAL IV PRN (08:23)
[2017-03-17] MEDS: POTASSIUM CHLORIDE 20 MEQ TABCR PO SCH (09:27)
[2017-03-17] MEDS: FERROUS SULFATE 325 MG TAB PO SCH (09:28)
[2017-03-17] MEDS: ETHACRYNIC ACID 25 MG TAB PO SCH (09:28)
[2017-03-17] MEDS: VANCOMYCIN HCL 125 MG/2.5ML SOLN PO SCH ×4 (09:28→20:19)
[2017-03-17] MEDS: FAMOTIDINE 20 MG TAB PO SCH ×2 (09:28→20:18)
[2017-03-17] MEDS: RASPBERRY SYRUP 5 ML UDP PO SCH ×4 (09:28→20:19)
[2017-03-17] MEDS: METHIMAZOLE 5 MG TAB PO SCH (09:29)
[2017-03-17] MEDS: METOPROLOL TARTRATE 25 MG TAB PO SCH (09:29)
[2017-03-17] MEDS: CALCITRIOL 0.25 MCG CAP PO SCH (09:29)
[2017-03-17] MEDS: HEPARIN SOD 5000 UNIT/0.5 ML CARP SQ SCH ×2 (09:34→21:59)
--- NOTE | 2017-03-17 10:17 | DIAGNOSTIC IMAGING REPORT ---
KUB CLINICAL HISTORY: Ileus COMPARISON STUDY: No previous studies for comparison. FINDINGS: The study is performed in a portable fashion and is somewhat limited from a technical standpoint. There are no transition zones to indicate bowel obstruction. There is decreasing colonic distention. The hepatic flexure measures 5.5 cm in diameter. IMPRESSION: Decreasing bowel distention. The cecum measures 8.5 cm, and the hepatic flexure measures 5.5 cm. No evidence of bowel obstruction Electronically signed by: Virgilio Galarza M.D. 03/17/2017 10:16 AM Dictated Date/Time: 03/17/2017 10:14 AM
--- NOTE | 2017-03-17 10:21 | Gastroenterology Progress Note ---
Progress Note Date of Service: March 17, 2017 Subjective Pt evaluation today including: conversation w/ patient, physical exam, chart review Pt was seen and evacuated this am. Her biggest concern is new onset neurpathy in bilateral lower extremities immediately following IV infusion of diuretics last night. She had immediate cramping of her feet which has not let up and is having constant numbness and tingling. Primary team is aware. She has had two BMs this morning - they were still liquid per patient. She is reporting nausea and gagging surrounding her morning pills. She tell me she has 30 pills all in the morning and this upsets her stomach. She did not take all these pills as an outpatient. She denies epigastric pain or burning. No regurgitation. No painful or difficulty swallow. + burping + nausea + gagging kUB 03/15/17: No change in the mildly distended gas-filled colon. The cecum measures up to 9 cm in diameter. The mid transverse colon measures up to 5.3 cm in diameter. No dilated small bowel to suggest an obstruction. Right femoral neck pin. Epigastric surgical clips. No renal calculi. No ureteral calculi. No pneumoperitoneum or pneumatosis. Review of Systems Constitutional: No chills, No fever Respiratory: + cough, No shortness of breath Cardiac: No chest pain, No edema Abdomen: + diarrhea, + nausea, + pain, No GI bleeding, No constipation, No dysphagia, No odynophagia, No vomiting Skin: + problem reported (bialteral lower extremity neurpathy) Medications Current Inpatient Medications Medications (Trade) Dose Ordered Sig/[place] Route Start Time Stop Time Status Last Admin Dose Admin Calcitriol (Rocaltrol Cap) 0.25 mcg QAM PO 03/12/17 09:00 04/11/17 08:59 03/17/17 09:29 0.25 MCG Methimazole (Methimazole Tab) 2.5 mg QAM PO 03/12/17 09:00 04/11/17 08:59 03/17/17 09:29 2.5 MG Atorvastatin Calcium (Lipitor Tab) 20 mg HS PO 03/13/17 21:00 04/12/17 20:59 03/16/17 21:24 20 MG Vancomycin HCl (Vancomycin Oral Soln) 125 mg QID PO 03/12/17 09:00 5/16/17 08:59 03/17/17 09:28 125 MG Morphine Sulfate (MoRPHine SULFATE INJ) 2 mg Q4H PRN IV 03/12/17 07:15 03/26/17 07:14 03/17/17 05:50 2 MG Acetaminophen (Tylenol Tab) 650 mg Q4H PRN PO 03/12/17 07:15 04/11/17 07:14 Ondansetron HCl (Zofran Inj) 4 mg Q6H PRN IV 03/12/17 07:15 04/11/17 07:14 03/17/17 08:23 4 MG Raspberry 5 ml 5 ml QID PO 03/12/17 09:00 03/26/17 08:59 03/17/17 09:28 5 ML Metronidazole/Prmx (Flagyl / Nss/ Premixed Nss) 100 ml @ 100 mls/hr Q8@0200,1000,1800 IV 03/12/17 11:00 03/26/17 09:59 03/17/17 02:13 100 MLS/HR Heparin Sodium (Porcine) (Heparin Sq 5000 Unit/0.5ml) 5,000 unit Q12 SQ 03/12/17 21:00 04/11/17 20:59 03/17/17 09:34 5,000 UNIT Heparin Sodium (Porcine) (Heparin 10 Unit/ ml 5 ml Flush) 5 ml PRN PRN FLUSH 03/13/17 01:30 04/12/17 01:29 03/17/17 05:52 10 ML Famotidine (Pepcid Tab) 10 mg BID PO 03/14/17 21:00 04/13/17 20:59 03/17/17 09:28 10 MG Prednisone (PredniSONE TAB) 10 mg Taper DAILY PO 03/15/17 09:00 03/18/18 08:59 03/17/17 09:29 10 MG Domperidone Maleate (Domperidone) 10 mg ACHS PO 03/14/17 16:15 04/13/17 16:14 03/17/17 05:50 10 MG Folic Acid (Folvite Tab) 1 mg QAM PO 03/14/17 16:15 04/13/17 16:14 03/17/17 09:29 1 MG Ferrous Sulfate (Feosol Tab) 325 mg BIDM PO 03/14/17 16:45 04/13/17 16:44 03/17/17 09:28 325 MG Ethacrynic Acid (Edecrin Tab) 75 mg QAM PO 03/15/17 12:00 04/14/17 11:59 03/17/17 09:28 75 MG Metoprolol Tartrate (Lopressor Tab) 12.5 mg QAM PO 03/15/17 09:00 04/14/17 08:59 03/17/17 09:29 12.5 MG Tramadol HCl (Ultram Tab) 50 mg Q6H PRN PO 03/15/17 12:00 04/14/17 11:59 Lidocaine (Lidoderm Patch 5%) 2 patch QAM TD 03/15/17 14:30 04/14/17 14:29 03/15/17 16:11 2 PATCH Acetaminophen/ Hydrocodone Bitart ([place] 5/325 Tab) 0.5 tab Q6H PRN PO 03/15/17 13:30 03/29/17 13:29 03/16/17 22:50 0.5 TAB Miscellaneous (Remove Lidoderm Patch) 2 ea DAILY@21 N/A 03/15/17 21:00 04/14/17 20:59 03/15/17 21:41 2 EA Potassium Chloride (Klor-Con Tab) 20 meq BID PO 03/16/17 20:41 04/15/17 20:59 03/17/17 09:27 20 MEQ Pramipexole Dihydrochloride (miraPEX TAB) 0.25 mg HS PO 03/16/17 21:00 04/15/17 20:59 03/16/17 21:24 0.25 MG Lisinopril (Zestril Tab) 10 mg HS PO 03/16/17 21:00 04/15/17 20:59 03/16/17 21:25 10 MG Objective Vital Signs Date Time Temp Pulse Resp B/P Pulse Ox O2 Delivery O2 Flow Rate FiO2 03/17/17 08:01 37.0 93 20 147/71 96 Room Air 03/17/17 08:00 Room Air 03/17/17 00:00 36.9 77 20 134/75 96 Room Air 03/17/17 00:00 96 Room Air 03/16/17 19:37 37.5 79 20 137/77 96 Room Air 03/16/17 16:00 96 Nasal Cannula 2.0 03/16/17 15:20 37.0 82 20 134/75 96 Room Air 03/16/17 12:00 95 Nasal Cannula 2.0 03/16/17 11:52 36.9 66 18 134/74 95 Physical Exam General Appearance: no apparent distress Eyes: PERRL ENT: hearing grossly normal Neck: supple Respiratory/Chest: normal breath sounds, no respiratory distress, no accessory muscle use, + wheezing Cardiovascular: regular rate, rhythm Abdomen: normal bowel sounds, soft, no organomegaly, no pulsatile mass Neurologic/Psych: alert, normal mood/affect, oriented x 3 Skin: normal color, no jaundice, warm/dry Laboratory Results Last 24 Hours Test 03/16/17 15:25 03/17/17 06:00 Sodium Level 136 mmol/L 137 mmol/L Potassium Level 3.6 mmol/L 3.4 mmol/L Chloride Level 99 mmol/L 98 mmol/L Carbon Dioxide Level 30 mmol/L 33 mmol/L Anion Gap 7.0 mmol/L 6.0 mmol/L Blood Urea Nitrogen 38 mg/dl 38 mg/dl Creatinine 1.60 mg/dl 1.50 mg/dl Est Creatinine Clear Calc Drug Dose 28.3 ml/min 30.2 ml/min Estimated GFR () 34.7 37.5 Estimated GFR (Non- 29.9 32.3 BUN/Creatinine Ratio 23.8 25.5 Random Glucose 156 mg/dl 89 mg/dl Calcium Level 9.0 mg/dl 9.0 mg/dl Magnesium Level 1.8 mg/dl White Blood Count 11.48 K/uL Red Blood Count 3.51 M/uL Hemoglobin 9.3 g/dL Hematocrit 29.8 % Mean Corpuscular Volume 84.9 fL Mean Corpuscular Hemoglobin 26.5 pg Mean Corpuscular Hemoglobin Concent 31.2 g/dl RDW Standard Deviation 47.8 fL RDW Coefficient of Variation 15.3 % Platelet Count 199 K/uL Mean Platelet Volume 9.4 fL Nucleated RBC Absolute Count (auto) 0.02 K/uL Nucleated Red Blood Cells % 0.2 % Assessment and Plan Ms. Phoenix is an 81 yr old female with C-diff, though clinically with sepsis which is improving, blood cultures negative thus far. Hb is decreasing but no evidence of GI bleeding. Her main issue today is cecal ileus. Passing stool presently. Had a dose of relistor yesterday. May repeat Relistor 03/17/17 if needed Hold narcotics Continue full liquid diet. Continue IV flagyl while admitted and Vanco po QID at 125mg x 2 weeks If no improvement of C.diff symptoms may use 250 mg QID for remaining course Her last episode of c.diff was in 2011 - tapering course not indicated unless still symptomatic at tend of 2 week treatment Suggest low dose daily PPI given report of nausea after medication use and burping/belching on pepcid Suggest primary team review medication list and convert any appropriate medications to other routes to aid in relieving nausea Trial of emend - will discuss with primary team to ensure no change in medications w/ interaction Daily KUB until resolution of dilation Consult ID at request of patient I saw and evaluated the patient. She has a number of complaints today including worsening of her underlying neuropathy. Recommendations Discontinue metronidazole Continue vancomycin 125 4 times a day Please obtain an ID consultation as suggested yesterday Emend to be given for her history of nausea
[2017-03-17] MEDS: GABAPENTIN 100 MG CAP PO SCH ×3 (10:52→20:18)
--- NOTE | 2017-03-17 13:24 | Medical Student: [facility] ---
Med Student Progress Note Date of Service March 17, 2017. Subjective Pt evaluation today including: conversation w/ patient, physical exam, chart review, lab review, review of studies Pain: 08/16 in right foot, not controlled PO Intake: clear liquids Patient reports that her bilateral foot pain is excruciating particularly in the right foot. She reports that it hurts to touch the sheets and she is holding it off the bed in order to prevent further pain. She describes the pain as burning pain sometimes like a cramp that has not remitted for over 24 hrs. Otherwise, she reports improvement in her bowels since Tuesday. She says there is some pain again in the right lower quadrant, but she has not had frequent bowel movements other than stool incontinence with movement/increased intraabdominal pressure. She complains of nausea while taking her pills. Review of Systems Constitutional: No chills, No fever Respiratory: + wheezing (mild) Cardiac: No chest pain Objective Vital Signs Date Time Temp Pulse Resp B/P Pulse Ox O2 Delivery O2 Flow Rate FiO2 03/17/17 08:01 37.0 93 20 147/71 96 Room Air 03/17/17 08:00 Room Air 03/17/17 00:00 36.9 77 20 134/75 96 Room Air 03/17/17 00:00 96 Room Air 03/16/17 19:37 37.5 79 20 137/77 96 Room Air 03/16/17 16:00 96 Nasal Cannula 2.0 03/16/17 15:20 37.0 82 20 134/75 96 Room Air Physical Exam General Appearance: + moderate distress, + obese, + pertinent finding (ill- appearing) ENT: hearing grossly normal, pharynx normal Neck: supple Respiratory/Chest: chest non-tender, lungs clear, normal breath sounds, + pertinent finding (shallow breaths) Cardiovascular: regular rate, rhythm, no edema, no murmur, + JVD Abdomen: soft, + tenderness (mild RLQ) Extremities: no pedal edema, no calf tenderness, + pertinent finding ( occasional pain to palpation, but not to light touch) Neurologic/Psychiatric: no motor/sensory deficits, alert, oriented x 3 Laboratory Results Last 24 Hours Test 03/16/17 15:25 03/17/17 06:00 Sodium Level 136 mmol/L 137 mmol/L Potassium Level 3.6 mmol/L 3.4 mmol/L Chloride Level 99 mmol/L 98 mmol/L Carbon Dioxide Level 30 mmol/L 33 mmol/L Anion Gap 7.0 mmol/L 6.0 mmol/L Blood Urea Nitrogen 38 mg/dl 38 mg/dl Creatinine 1.60 mg/dl 1.50 mg/dl Est Creatinine Clear Calc Drug Dose 28.3 ml/min 30.2 ml/min Estimated GFR () 34.7 37.5 Estimated GFR (Non- 29.9 32.3 BUN/Creatinine Ratio 23.8 25.5 Random Glucose 156 mg/dl 89 mg/dl Calcium Level 9.0 mg/dl 9.0 mg/dl Magnesium Level 1.8 mg/dl White Blood Count 11.48 K/uL Red Blood Count 3.51 M/uL Hemoglobin 9.3 g/dL Hematocrit 29.8 % Mean Corpuscular Volume 84.9 fL Mean Corpuscular Hemoglobin 26.5 pg Mean Corpuscular Hemoglobin Concent 31.2 g/dl RDW Standard Deviation 47.8 fL RDW Coefficient of Variation 15.3 % Platelet Count 199 K/uL Mean Platelet Volume 9.4 fL Nucleated RBC Absolute Count (auto) 0.02 K/uL Nucleated Red Blood Cells % 0.2 % Medications Current Inpatient Medications Medications (Trade) Dose Ordered Sig/Herm[place] Route Start Time Stop Time Status Last Admin Dose Admin Calcitriol (Rocaltrol Cap) 0.25 mcg QAM PO 03/12/17 09:00 04/11/17 08:59 03/17/17 09:29 0.25 MCG Methimazole (Methimazole Tab) 2.5 mg QAM PO 03/12/17 09:00 04/11/17 08:59 03/17/17 09:29 2.5 MG Atorvastatin Calcium (Lipitor Tab) 20 mg HS PO 03/13/17 21:00 04/12/17 20:59 03/16/17 21:24 20 MG Vancomycin HCl (Vancomycin Oral Soln) 125 mg QID PO 03/12/17 09:00 03/22/17 08:59 03/17/17 11:52 125 MG Morphine Sulfate (MoRPHine SULFATE INJ) 2 mg Q4H PRN IV 03/12/17 07:15 03/26/17 07:14 03/17/17 05:50 2 MG Acetaminophen (Tylenol Tab) 650 mg Q4H PRN PO 03/12/17 07:15 04/11/17 07:14 Ondansetron HCl (Zofran Inj) 4 mg Q6H PRN IV 03/12/17 07:15 04/11/17 07:14 03/17/17 08:23 4 MG Raspberry (Raspberry Syrup 5ml Cup) 5 ml QID PO 03/12/17 09:00 03/26/17 08:59 03/17/17 11:52 5 ML Heparin Sodium (Porcine) (Heparin Sq 5000 Unit/0.5ml) 5,000 unit Q12 SQ 03/12/17 21:00 04/11/17 20:59 03/17/17 09:34 5,000 UNIT Heparin Sodium (Porcine) (Heparin 10 Unit/ ml 5 ml Flush) 5 ml PRN PRN FLUSH 03/13/17 01:30 04/12/17 01:29 03/17/17 05:52 10 ML Famotidine (Pepcid Tab) 10 mg BID PO 03/14/17 21:00 04/13/17 20:59 03/17/17 09:28 10 MG Prednisone (PredniSONE TAB) 10 mg Taper DAILY PO 03/15/17 09:00 03/18/18 08:59 03/17/17 09:29 10 MG Domperidone Maleate (Domperidone) 10 mg ACHS PO 03/14/17 16:15 04/13/17 16:14 03/17/17 10:52 10 MG Folic Acid (Folvite Tab) 1 mg QAM PO 03/14/17 16:15 04/13/17 16:14 03/17/17 09:29 1 MG Ethacrynic Acid (Edecrin Tab) 75 mg QAM PO 03/15/17 12:00 04/14/17 11:59 03/17/17 09:28 75 MG Metoprolol Tartrate (Lopressor Tab) 12.5 mg QAM PO 03/15/17 09:00 04/14/17 08:59 03/17/17 09:29 12.5 MG Tramadol HCl (Ultram Tab) 50 mg Q6H PRN PO 03/15/17 12:00 04/14/17 11:59 Lidocaine (Lidoderm Patch 5%) 2 patch QAM TD 03/15/17 14:30 04/14/17 14:29 03/15/17 16:11 2 PATCH Acetaminophen/ Hydrocodone Bitart (Jesse 5/325 Tab) 0.5 tab Q6H PRN PO 03/15/17 13:30 03/29/17 13:29 03/16/17 22:50 0.5 TAB Miscellaneous (Remove Lidoderm Patch) 2 ea DAILY@21 N/A 03/15/17 21:00 04/14/17 20:59 03/15/17 21:41 2 EA Pramipexole Dihydrochloride (miraPEX TAB) 0.25 mg HS PO 03/16/17 21:00 04/15/17 20:59 03/16/17 21:24 0.25 MG Lisinopril (Zestril Tab) 10 mg HS PO 03/16/17 21:00 04/15/17 20:59 03/16/17 21:25 10 MG Gabapentin (Neurontin Cap) 100 mg TID PO 03/17/17 10:15 04/16/17 10:14 03/17/17 10:52 100 MG Pantoprazole Sodium (Protonix Tab) 40 mg DAILY PO 03/18/17 08:00 04/17/17 07:59 Enteral Nutritional Formula (Boost Breeze Nutritional Drink) 1 box BID PO 03/17/17 20:00 04/16/17 19:59 Assessment and Plan Problems Abdominal pain Acute renal failure Benign hypertension Chronic congestive heart failure Colitis Osteoporosis Assessment and Plan: This is an 81 yo female who presents with sepsis secondary to severe recurrent c. diff colitis and acute on chronic kidney disease. 1. Sepsis: -Blood pressure continues to be stable. -Prednisone taper was started at 20 mg and will be tapered to her chronic dose of 5 mg. -Continue PO vancomycin. 2. C diff colitis: -Diarrhea has returned. Will continue full course of vancomycin before considering alternate therapies. -D/c metronidazole due to possible peripheral neuropathy causing foot pain -Continue PO vancomycin. -Continue to advance diet as tolerated and watch for possible mesenteric ischemia due to history. 3. CORNELL: -Creatinine has returned to baseline. -Likely ATN secondary to sepsis. -Continue to monitor serial PRPs. -Diuresis continues, possibly due to post ATN diuresis combined with medical diuresis. -Avoid nephrotoxic medications. 4. Diastolic CHF: -Patient appears stable today. -Continue ethacrynic acid 75 mg po qam. -Will continue to monitor fluid status 5. HTN: -Metoprolol resumed today and will be given 12.5 mg po qam. -Lisinopril resumed. 6. Anemia: -Iron studies indicated a mixed anemia, with low folate. -Continue to follow blood counts daily. -D/c ferrous sulfate due to stomach upset and nausea. -Folic acid 1 mg po qam 7. DVT prophylaxis: -Receiving lovenox sub-q for prophylaxis Continued [facility] stay due to: abnormal vital signs, inadequate po fluid intake, inadequate oral pain control, voiding difficulties, ambulation difficulties, multiple IV medications needed Discharge planning: uncertain
[2017-03-17] MEDS ORDERED: FOSAPREPITANT DIMEGLUMINE INJ 115 MG in SODIUM CHLORIDE 0.9% 100ML 111.2 ML IV ONE (14:30)
[2017-03-17 15:22] VITALS: BP 146/68; PULSE 84; TEMP 36.7; O2SAT 97
--- NOTE | 2017-03-17 15:25 | Progress Note ---
Progress Note Date of Service March 17, 2017. Progress Note ID Consult Dictated #[id number] A/P: 1. c diff coliis -Would suggest tapering course of vanco over 6 week period: 125 QID x 7 days, 125mg tid x 7 days, 125mg bid x 7 days, then 125mg daily x 7 days -thank you
--- NOTE | 2017-03-17 18:26 | Progress Note ---
Subjective Date of Service: March 17, 2017. (Jeff Pretty CRNP) Subjective Pt evaluation today including: conversation w/ patient, physical exam, chart review, lab review, review of studies, conversation w/ disaster recovery consultant, review of inpatient medication list Pain: bilateral foot pain R>L PO Intake: nausea with any oral intake or pills Voiding: william catheter in place received IV diuretics and has had bilateral ankle distally pain. Burning, pins and needles, pain with any pressure on feet. States not as frequent diarrhea. Still incontinent of some stool with movement. (Jeff Pretty CRNP) Problem List Medical Problems: (1) Abdominal pain Status: Acute (2) Hypotension Status: Acute (3) Ischemic colitis Status: Acute (4) Rectal bleed Status: Acute (Jeff Pretty CRNP) Review of Systems Constitutional: No chills, No fatigue, No fever, No problem reported, No see HPI, No sweats, No weakness, No weight loss Respiratory: No cough, No dyspnea at rest, No dyspnea on exertion, No hemoptysis, No problem reported, No see HPI, No shortness of breath, No sputum, No wheezing Cardiac: No PND, No chest pain, No claudication, No edema, No orthopnea, No palpitations, No problem reported, No see HPI Abdomen: + diarrhea, + nausea, + pain Musculoskeletal: + problem reported (bilateral foot pain) Neurologic: + numbness/tingling (feet) Skin: No bleeding, No color change, No itch, No new/changing skin lesions, No problem reported, No rash, No see HPI (Jeff Pretty CRNP) Medications reviewed (Jeff Pretty CRNP) Objective Vital Signs Date Time Temp Pulse Resp B/P Pulse Ox O2 Delivery O2 Flow Rate FiO2 03/17/17 08:01 37.0 93 20 147/71 96 Room Air 03/17/17 08:00 Room Air 03/17/17 00:00 36.9 77 20 134/75 96 Room Air 03/17/17 00:00 96 Room Air 03/16/17 19:37 37.5 79 20 137/77 96 Room Air 03/16/17 16:00 96 Nasal Cannula 2.0 03/16/17 15:20 37.0 82 20 134/75 96 Room Air (Jeff Pretty, RACE BOARD ATTENDANT) Physical Exam General Appearance: WD/WN, no apparent distress Eyes: normal inspection Neck: supple Respiratory/Chest: + crackles (bibasilar) Cardiovascular: regular rate, rhythm, no edema, no JVD Abdomen: normal bowel sounds, soft, no organomegaly, no pulsatile mass, + tenderness (diffuse) Extremities: normal range of motion, normal inspection, no pedal edema, no calf tenderness, normal capillary refill, + pertinent finding (tender to palpation bilateral feet. no rash, no allodynia or hyperesthesia) Neurologic/Psychiatric: no motor/sensory deficits, alert, oriented x 3 Skin: normal color (Jeff Pretty, RODRICK) Laboratory Results Last 24 Hours Test 03/16/17 15:25 03/17/17 06:00 Sodium Level 136 mmol/L 137 mmol/L Potassium Level 3.6 mmol/L 3.4 mmol/L Chloride Level 99 mmol/L 98 mmol/L Carbon Dioxide Level 30 mmol/L 33 mmol/L Anion Gap 7.0 mmol/L 6.0 mmol/L Blood Urea Nitrogen 38 mg/dl 38 mg/dl Creatinine 1.60 mg/dl 1.50 mg/dl Est Creatinine Clear Calc Drug Dose 28.3 ml/min 30.2 ml/min Estimated GFR () 34.7 37.5 Estimated GFR (Non- 29.9 32.3 BUN/Creatinine Ratio 23.8 25.5 Random Glucose 156 mg/dl 89 mg/dl Calcium Level 9.0 mg/dl 9.0 mg/dl Magnesium Level 1.8 mg/dl White Blood Count 11.48 K/uL Red Blood Count 3.51 M/uL Hemoglobin 9.3 g/dL Hematocrit 29.8 % Mean Corpuscular Volume 84.9 fL Mean Corpuscular Hemoglobin 26.5 pg Mean Corpuscular Hemoglobin Concent 31.2 g/dl RDW Standard Deviation 47.8 fL RDW Coefficient of Variation 15.3 % Platelet Count 199 K/uL Mean Platelet Volume 9.4 fL Nucleated RBC Absolute Count (auto) 0.02 K/uL Nucleated Red Blood Cells % 0.2 % (Jeff Pretty, RODRICK) Assessment and Plan 1. septic shock 2nd to c. diff colitis - shock resolved 2. c. diff colitis - severe - ileus resolved on imaging. stop IV flagyl. cont oral vanco. Consult ID 3. neuropathy bilateral feet starting last night. ? metronidazole which can cause. stopped flagyl. added gabapentin, morphine not helping. 3. steroid dependent scleroderma - was on stress dose IV hydrocortisone for #1 , now on tapering prednisone. 4. acute renal failure 2nd to ATN in setting of #1 - resolved. Cr stable. 5. CKD stage 3 - stable and at baseline. 7. acute/chronic diastolic CHF Cont ethacrynic acid and beta kay. Added GUILLERMO - renal status okay Strict I's and O's. 8. anemia of chronic disease +/- iron deficiency - stop PO iron for now. She is very nauseous with oral meds. 9. gastroparesis - continue domperidone. GI added Emend today. Appreciate their input 10. back pain - lidoderm patches prn 11.hypokalemia - was normal yesterday. low again today, likely secondary to diarrhea 12. cramps in legs - being made worse by hypokalemia; iron def can contribute as well. Mirapex didn't seem to help. Add low dose gabapentin. 13. slow progress - will be here a few more days. will need PT and OT Continued [facility] stay due to: abnormal vital signs, inadequate po fluid intake, inadequate oral pain control, voiding difficulties, ambulation difficulties, multiple IV medications needed Discharge planning: uncertain (Jeff Pretty ., RODRICK) I agree with MEDICAL PRACTICE ASSISTANT assessment and plan Tx for cdiff colitis Cont antibx Consulted ID Appreciate recs Labs and micro reviewed (Dimitry Roy D.O.)
[2017-03-17] MEDS: BOOST BREEZE NUTRITION DRINK 1 BOX PO SCH (20:00)
[2017-03-17] MEDS: HYDROCODONE/ACETAMOPHEN 5/325MG TAB PO PRN (21:52)
[2017-03-17] MEDS: PRAMIPEXOLE DIHYDROCHLORIDE 0.25MG TAB PO SCH (21:54)
[2017-03-17] MEDS: ATORVASTATIN 20 MG TAB PO SCH (21:55)
[2017-03-17] MEDS: LISINOPRIL 10 MG TAB PO SCH (21:55)
[2017-03-17 23:20] VITALS: BP 147/74; PULSE 83; TEMP 37.3; O2SAT 93
--- NOTE | 2017-03-18 02:21 | INFECT. DISEASE CONSULTATION ---
DATE OF CONSULTATION: 03/17/2017 REQUESTING PHYSICIAN: Dr. Carrillo. HISTORY OF PRESENT ILLNESS: This is an 81-year-old female who has a history of mixed connective tissue disorder, osteoporosis, on chronic steroids, and ischemic colitis. She has also had multiple gastric surgeries in the past and suffers from gastroparesis. She was admitted to the hospital secondary to abdominal pain and diarrhea. She does take GoLYTELY on a chronic basis secondary to her gastroparesis. She did take a dose on the day of admission but had diffuse diarrhea post-GoLYTELY therapy. She did have a C. diff obtained in the Emergency Room and this was positive. She has not had significant leukocytosis since admission. Her initial white blood cell count was 13.7, it is down to 11.4, and she is on chronic steroids. Her urinalysis had only 5-10 WBCs. Blood cultures have been negative. She did have a CAT scan of the abdomen and pelvis in the ER which did show gas pattern and questionable bowel obstruction, but no free air was noted. She most recently had a flat plate of the abdomen done this morning and this shows improvement. She is being followed by GI throughout this hospital stay. She has been on Flagyl and vanco. Her Flagyl was stopped secondary to neuropathy. She remains on vancomycin. She states this is her fourth episode of C. diff and her 3 previous episodes were treated with antibiotics on an outpatient basis. She was also taking a probiotic at one point in time but has discontinued this. She currently is tolerating her antibiotics well. She currently is complaining of bloating and inability to have a bowel movement secondary to gastroparesis. She denies any fevers or chills. She initially was hypotensive and admitted to the intensive care unit but has improved and has been transferred to the medical floor. She did request an ID evaluation for treatment of her C. diff moving forward. She currently denies any fevers or chills. She has no headache, cough, chest pain, shortness of breath. She does have nausea and poor p.o. intake. She does not have any vomiting. She currently does not have any diarrhea and is constipated. She does have abdominal pain and bloating. She has no urinary symptoms. Remaining review of systems is reviewed and is negative except for as noted above. PAST MEDICAL HISTORY: Significant for history of C. diff, hypertension, depression, GERD, peptic ulcer disease, high cholesterol, vertigo, chronic kidney disease, appendectomy, cholecystectomy, hysterectomy. SOCIAL HISTORY: Negative for tobacco use, alcohol use, or drug use. FAMILY HISTORY: Noncontributory. ALLERGIES: INCLUDE CEFUROXIME, CIPROFLOXACIN, ERYTHROMYCIN, LASIX, HYDROCHLOROTHIAZIDE, LEVAQUIN, MEPERIDINE, REGLAN, SULFA ANTIBIOTICS. CURRENT MEDICATIONS: Include, Protonix, Boost, Neurontin, Mirapex, Zestril, Lidoderm patch, Percocet, Ultram, prednisone, Lopressor, Pepcid, domperidone, folic acid, Lipitor, subcu heparin, calcitriol, p.o. vanco, morphine, Tylenol and Zofran. PHYSICAL EXAMINATION: VITAL SIGNS: She is afebrile, pulse 93, respiratory rate 20, blood pressure 147/71, oxygen saturation is 97% on room air. GENERAL: She is awake, alert and oriented x3. She is in no acute distress. HEENT: Mucous membranes are dry. Extraocular muscles are intact. HEART: Regular. LUNGS: Clear. ABDOMEN: Mildly distended and tender to palpation. There is no edema. SKIN: Without rash. LABORATORY STUDIES: Today, white blood cell count is 11.4, hemoglobin 9.3, platelets are 199. Chemistry panel reveals sodium of 137, potassium 3.4, chloride 98, bicarb 33, BUN 38, creatinine 1.5, and glucose is 89. Urinalysis in the ER was negative. Blood cultures are negative. Stool cultures are negative. C. diff is positive. Imaging is as reviewed previously. ASSESSMENT AND PLAN: Clostridium difficile colitis. My recommendation at this time would be to continue on vancomycin. She certainly may need 6-week tapering course from 125 mg 4 times a day for 1 week, down to 3 times a day for 1 week, down to 2 times a day for 1 week, down to 1 time a day for 1 week. She is requesting that she be treated with Dificid as she has been treated with this before, but I have concerns regarding approval as well as efficacy as I feel she is responding well to vanco and has responded to it in the past. My recommendation would be a longer course of vancomycin. Thank you for this consultation.
[2017-03-18] MEDS: HYDROCODONE/ACETAMOPHEN 5/325MG TAB PO PRN (04:35)
[2017-03-18] MEDS: DOMPERIDONE 10 MG PO SCH ×4 (05:45→21:11)
[2017-03-18 06:18] LABS: HEMATOCRIT 28.8 % (37-47); MEAN CORPUSCULAR HEMOGLOBIN 25.9 pg (25-34); MEAN CORPUSCULAR HGB CONC 30.9 g/dl (32-36); MEAN PLATELET VOLUME 9.7 fL (7.4-10.4); PLATELET COUNT 204 K/uL (130-400); RED BLOOD COUNT 3.43 M/uL (4.2-5.4); WHITE BLOOD COUNT 12.43 K/uL (4.8-10.8)
[2017-03-18 06:46] LABS: BASO % 0.3 %; BASO ABS # 0.04 K/uL (0-0.2); COMPLETE YES; EOS % 0.9 %; IG% 4.3 %; LYMPH % 13.5 %; LYMPH ABS # 1.68 K/uL (1.2-3.4); MONO % 8.7 %; NEUT % 72.3 %; TOXIC GRANULATION 1+
[2017-03-18 06:59] VITALS: BP 133/78; PULSE 91; TEMP 36.8; O2SAT 92
[2017-03-18 07:03] LABS: BUN/CREATININE RATIO 21.4 (10-20); CALCIUM 8.8 mg/dl (8.5-10.1); CREATININE 1.4 mg/dl (0.60-1.20); MAGNESIUM 1.5 mg/dl (1.8-2.4); POTASSIUM 3.3 mmol/L (3.5-5.1)
[2017-03-18] MEDS: BOOST BREEZE NUTRITION DRINK 1 BOX PO SCH ×2 (08:00→20:00)
[2017-03-18] MEDS: LIDODERM (LIDOCAINE) PATCH 5% TD SCH (08:00)
[2017-03-18] MEDS: ONDANSETRON INJ 2 MG/ML 2 ML VIAL IV PRN (08:25)
[2017-03-18] MEDS ORDERED: POTASSIUM CHLORIDE 10 MEQ TABCR PO ONE (08:56)
[2017-03-18] MEDS: FAMOTIDINE 20 MG TAB PO SCH ×2 (09:02→21:13)
[2017-03-18] MEDS: GABAPENTIN 100 MG CAP PO SCH ×3 (09:02→21:10)
[2017-03-18] MEDS: PANTOprazole SOD 40 MG TAB PO SCH (09:02)
[2017-03-18] MEDS: ETHACRYNIC ACID 25 MG TAB PO SCH (09:02)
[2017-03-18] MEDS: RASPBERRY SYRUP 5 ML UDP PO SCH ×4 (09:02→21:09)
[2017-03-18] MEDS: CALCITRIOL 0.25 MCG CAP PO SCH (09:02)
[2017-03-18] MEDS: METHIMAZOLE 5 MG TAB PO SCH (09:03)
[2017-03-18] MEDS: VANCOMYCIN HCL 125 MG/2.5ML SOLN PO SCH ×4 (09:03→21:09)
[2017-03-18] MEDS: METOPROLOL TARTRATE 25 MG TAB PO SCH (09:03)
[2017-03-18] MEDS: HEPARIN SOD 5000 UNIT/0.5 ML CARP SQ SCH ×2 (09:06→21:27)
--- NOTE | 2017-03-18 10:17 | Gastroenterology Progress Note ---
Progress Note Date of Service: March 18, 2017 Subjective Pt evaluation today including: conversation w/ patient, physical exam, chart review, lab review Pt was seen and evaluated this AM. Discuss with Dr. Roy who is hopeful to d/ c today or tomorrow with home nursing for continued treatment and pt is unwilling to be d/c to rehab. She has not had a BM this morning. + lower abdominal pain, slightly relieved from previous exams however still present. She had a dose of emend yesterday with relief from nausea, however, still present this AM with her pills. She is very concerned about her neuropathy - she is unable to walk or have any pressure on her feet. This is slightly resolved from d/c flagyl per patient. She was seen by ID who suggest tapering course of vanco for c.diff Review of Systems Constitutional: No chills, No fever Respiratory: No cough, No shortness of breath Cardiac: No chest pain, No edema Abdomen: + diarrhea, + nausea, + pain, No GI bleeding, No constipation, No vomiting Medications Current Inpatient Medications Medications (Trade) Dose Ordered Sig/[place] Route Start Time Stop Time Status Last Admin Dose Admin Calcitriol (Rocaltrol Cap) 0.25 mcg QAM PO 03/12/17 09:00 04/11/17 08:59 03/18/17 09:02 0.25 MCG Methimazole (Methimazole Tab) 2.5 mg QAM PO 03/12/17 09:00 04/11/17 08:59 03/18/17 09:03 2.5 MG Atorvastatin Calcium (Lipitor Tab) 20 mg HS PO 03/13/17 21:00 04/12/17 20:59 03/17/17 21:55 20 MG Vancomycin HCl (Vancomycin Oral Soln) 125 mg QID PO 03/12/17 09:00 03/22/17 08:59 03/18/17 09:03 125 MG Morphine Sulfate (MoRPHine SULFATE INJ) 2 mg Q4H PRN IV 03/12/17 07:15 03/26/17 07:14 03/17/17 05:50 2 MG Acetaminophen (Tylenol Tab) 650 mg Q4H PRN PO 03/12/17 07:15 04/11/17 07:14 Ondansetron HCl (Zofran Inj) 4 mg Q6H PRN IV 03/12/17 07:15 04/11/17 07:14 03/18/17 08:25 4 MG Raspberry (Raspberry Syrup 5ml Cup) 5 ml QID PO 03/12/17 09:00 03/26/17 08:59 03/18/17 09:02 5 ML Heparin Sodium (Porcine) (Heparin Sq 5000 Unit/0.5ml) 5,000 unit Q12 SQ 03/12/17 21:00 04/11/17 20:59 03/18/17 09:06 5,000 UNIT Heparin Sodium (Porcine) (Heparin 10 Unit/ ml 5 ml Flush) 5 ml PRN PRN FLUSH 03/13/17 01:30 04/12/17 01:29 03/17/17 17:20 5 ML Famotidine (Pepcid Tab) 10 mg BID PO 03/14/17 21:00 04/13/17 20:59 03/18/17 09:02 10 MG Prednisone (PredniSONE TAB) 5 mg Taper DAILY PO 03/15/17 09:00 03/18/18 08:59 03/18/17 09:02 10 MG Domperidone Maleate (Domperidone) 10 mg ACHS PO 03/14/17 16:15 04/13/17 16:14 03/18/17 05:45 10 MG Folic Acid (Folvite Tab) 1 mg QAM PO 03/14/17 16:15 04/13/17 16:14 03/18/17 09:02 1 MG Ethacrynic Acid (Edecrin Tab) 75 mg QAM PO 03/15/17 12:00 04/14/17 11:59 03/18/17 09:02 75 MG Metoprolol Tartrate (Lopressor Tab) 12.5 mg QAM PO 03/15/17 09:00 04/14/17 08:59 03/18/17 09:03 12.5 MG Tramadol HCl (Ultram Tab) 50 mg Q6H PRN PO 03/15/17 12:00 04/14/17 11:59 03/18/17 03:39 50 MG Lidocaine (Lidoderm Patch 5%) 2 patch QAM TD 03/15/17 14:30 04/14/17 14:29 03/15/17 16:11 2 PATCH Acetaminophen/ Hydrocodone Bitart ([place] 5/325 Tab) 0.5 tab Q6H PRN PO 03/15/17 13:30 03/29/17 13:29 03/18/17 04:35 0.5 TAB Miscellaneous (Remove Lidoderm Patch) 2 ea DAILY@21 N/A 03/15/17 21:00 04/14/17 20:59 03/15/17 21:41 2 EA Pramipexole Dihydrochloride (miraPEX TAB) 0.25 mg HS PO 03/16/17 21:00 04/15/17 20:59 03/16/17 21:24 0.25 MG Lisinopril (Zestril Tab) 10 mg HS PO 03/16/17 21:00 04/15/17 20:59 03/17/17 21:55 10 MG Gabapentin (Neurontin Cap) 100 mg TID PO 03/17/17 10:15 04/16/17 10:14 03/18/17 09:02 100 MG Pantoprazole Sodium (Protonix Tab) 40 mg DAILY PO 03/18/17 08:00 04/17/17 07:59 03/18/17 09:02 40 MG Enteral Nutritional Formula (Boost Breeze Nutritional Drink) 1 box BID PO 03/17/17 20:00 04/16/17 19:59 Magnesium Oxide (Mag-Ox Tab) 400 mg BID PO 03/18/17 20:00 04/17/17 19:59 Loratadine (Claritin Tab) 10 mg QAM PO 03/19/17 08:00 04/18/17 07:59 UNV Loratadine (Claritin Tab) 10 mg NOW ONCE PO 03/18/17 10:15 03/18/17 10:16 UNV Objective Vital Signs Date Time Temp Pulse Resp B/P Pulse Ox O2 Delivery O2 Flow Rate FiO2 03/18/17 08:00 Room Air 03/18/17 06:59 36.8 91 18 133/78 92 Room Air 03/18/17 00:00 Room Air 03/17/17 23:20 37.3 83 18 147/74 93 Room Air 03/17/17 16:00 Room Air 03/17/17 15:22 36.7 84 18 146/68 97 Room Air Physical Exam General Appearance: no apparent distress Eyes: PERRL ENT: hearing grossly normal Neck: supple Respiratory/Chest: lungs clear, no accessory muscle use Cardiovascular: regular rate, rhythm, no edema, no JVD Abdomen: normal bowel sounds, no organomegaly, no pulsatile mass, + distended, + tenderness (generalized) Neurologic/Psych: alert, normal mood/affect, oriented x 3 Skin: normal color, no jaundice, warm/dry, no rash Laboratory Results Last 24 Hours Test 03/18/17 05:55 White Blood Count 12.43 K/uL Red Blood Count 3.43 M/uL Hemoglobin 8.9 g/dL Hematocrit 28.8 % Mean Corpuscular Volume 84.0 fL Mean Corpuscular Hemoglobin 25.9 pg Mean Corpuscular Hemoglobin Concent 30.9 g/dl Platelet Count 204 K/uL Mean Platelet Volume 9.7 fL Neutrophils (%) (Auto) 72.3 % Lymphocytes (%) (Auto) 13.5 % Monocytes (%) (Auto) 8.7 % Eosinophils (%) (Auto) 0.9 % Basophils (%) (Auto) 0.3 % Neutrophils # (Auto) 8.99 K/uL Lymphocytes # (Auto) 1.68 K/uL Monocytes # (Auto) 1.08 K/uL Eosinophils # (Auto) 0.11 K/uL Basophils # (Auto) 0.04 K/uL RDW Standard Deviation 46.7 fL RDW Coefficient of Variation 15.0 % Immature Granulocyte % (Auto) 4.3 % Immature Granulocyte # (Auto) 0.53 K/uL Nucleated RBC Absolute Count (auto) 0.02 K/uL Nucleated Red Blood Cells % 0.1 % Toxic Granulation 1+ Sodium Level 134 mmol/L Potassium Level 3.3 mmol/L Chloride Level 92 mmol/L Carbon Dioxide Level 33 mmol/L Anion Gap 9.0 mmol/L Blood Urea Nitrogen 30 mg/dl Creatinine 1.40 mg/dl Est Creatinine Clear Calc Drug Dose 32.4 ml/min Estimated GFR () 40.7 Estimated GFR (Non- 35.1 BUN/Creatinine Ratio 21.4 Random Glucose 75 mg/dl Calcium Level 8.8 mg/dl Magnesium Level 1.5 mg/dl Assessment and Plan Ms. Phoenix is an 81 yr old female with C-diff, though clinically with sepsis which is improving, blood cultures negative thus far. Hb is decreasing but no evidence of GI bleeding. Her main issue today is cecal ileus. 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 - this was held and ID was consulted KUB today for distention May repeat Relistor 03/18/17 if needed Hold narcotics Continue full liquid diet. Continue IV flagyl while admitted and Vanco po QID at 125mg x 2 weeks If no improvement of C.diff symptoms may use 250 mg QID for remaining course Her last episode of c.diff was in 2011 - tapering course not indicated unless still symptomatic at tend of 2 week treatment Appreciate ID opinion on taper Suggest low dose daily PPI given report of nausea after medication use and burping/belching on pepcid Suggest primary team review medication list and convert any appropriate medications to other routes to aid in relieving nausea Trial of emend - will discuss with primary team to ensure no change in medications w/ interaction I saw and evaluated the patient with Ms. Peres. Would suggest we continue the Vancomycin for the time being and add Questran 1 time daily ( appreciate recs from ID) GI to sign off. Please call with any acute changes, questions or concerns. She should follow up with her established GI provider as scheduled.
[2017-03-18] MEDS ORDERED: LORATADINE 10 MG TAB PO ONE (11:00)
--- NOTE | 2017-03-18 11:53 | DIAGNOSTIC IMAGING REPORT ---
KUB CLINICAL HISTORY: ileus, distention, abdominal pain pain COMPARISON STUDY: 03/17/2017 FINDINGS: Continued improvement. No significant bowel distention. Time. Nonobstructive bowel pattern overall. IMPRESSION: Improved exam. Nonobstructive bowel pattern currently Electronically signed by: Donte Mar M.D. 03/18/2017 11:52 AM Dictated Date/Time: 03/18/2017 11:51 AM
[2017-03-18] MEDS ORDERED: CHOLESTYRAMINE LIGHT 4 GM PKT PO PRN (12:00)
[2017-03-18 16:00] VITALS: O2SAT 95
--- NOTE | 2017-03-18 16:08 | Progress Note ---
Subjective Date of Service: March 18, 2017. Subjective Pt evaluation today including: conversation w/ patient, physical exam, chart review, lab review, review of studies, review of inpatient medication list Problem List Medical Problems: (1) Abdominal pain Status: Acute (2) Hypotension Status: Acute (3) Ischemic colitis Status: Acute (4) Rectal bleed Status: Acute Review of Systems Constitutional: No chills, No fever Respiratory: No cough, No dyspnea on exertion, No shortness of breath, No sputum, No wheezing Cardiac: No chest pain, No orthopnea Abdomen: + diarrhea, No nausea, No pain, No vomiting Musculoskeletal: No joint pain, No muscle pain Neurologic: + numbness/tingling, No paralysis Objective Vital Signs Date Time Temp Pulse Resp B/P Pulse Ox O2 Delivery O2 Flow Rate FiO2 03/18/17 08:00 Room Air 03/18/17 06:59 36.8 91 18 133/78 92 Room Air 03/18/17 00:00 Room Air 03/17/17 23:20 37.3 83 18 147/74 93 Room Air 03/17/17 16:00 Room Air Physical Exam General Appearance: WD/WN, no apparent distress Neck: supple, no adenopathy Respiratory/Chest: lungs clear, normal breath sounds Cardiovascular: no edema, no gallop Abdomen: non tender, soft Neurologic/Psychiatric: alert, oriented x 3 Laboratory Results Last 24 Hours Test 03/18/17 05:55 White Blood Count 12.43 K/uL Red Blood Count 3.43 M/uL Hemoglobin 8.9 g/dL Hematocrit 28.8 % Mean Corpuscular Volume 84.0 fL Mean Corpuscular Hemoglobin 25.9 pg Mean Corpuscular Hemoglobin Concent 30.9 g/dl Platelet Count 204 K/uL Mean Platelet Volume 9.7 fL Neutrophils (%) (Auto) 72.3 % Lymphocytes (%) (Auto) 13.5 % Monocytes (%) (Auto) 8.7 % Eosinophils (%) (Auto) 0.9 % Basophils (%) (Auto) 0.3 % Neutrophils # (Auto) 8.99 K/uL Lymphocytes # (Auto) 1.68 K/uL Monocytes # (Auto) 1.08 K/uL Eosinophils # (Auto) 0.11 K/uL Basophils # (Auto) 0.04 K/uL RDW Standard Deviation 46.7 fL RDW Coefficient of Variation 15.0 % Immature Granulocyte % (Auto) 4.3 % Immature Granulocyte # (Auto) 0.53 K/uL Nucleated RBC Absolute Count (auto) 0.02 K/uL Nucleated Red Blood Cells % 0.1 % Toxic Granulation 1+ Sodium Level 134 mmol/L Potassium Level 3.3 mmol/L Chloride Level 92 mmol/L Carbon Dioxide Level 33 mmol/L Anion Gap 9.0 mmol/L Blood Urea Nitrogen 30 mg/dl Creatinine 1.40 mg/dl Est Creatinine Clear Calc Drug Dose 32.4 ml/min Estimated GFR () 40.7 Estimated GFR (Non- 35.1 BUN/Creatinine Ratio 21.4 Random Glucose 75 mg/dl Calcium Level 8.8 mg/dl Magnesium Level 1.5 mg/dl Assessment and Plan 1. septic shock 2nd to c. diff colitis - shock resolved 2. c. diff colitis - severe - ileus resolved on imaging. stop IV flagyl. cont oral vanco. Consult ID, will need 6 weeks therapy 3. neuropathy bilateral feet starting last night. ? metronidazole which can cause. stopped flagyl. cont gabapentin, morphine not helping. 3. steroid dependent scleroderma - was on stress dose IV hydrocortisone for #1 , now on tapering prednisone. 4. acute renal failure 2nd to ATN in setting of #1 - resolved. Cr stable. 5. CKD stage 3 - stable and at baseline. 7. acute/chronic diastolic CHF Cont ethacrynic acid and beta kay. Added GUILLERMO - renal status okay Strict I's and O's. 8. anemia of chronic disease +/- iron deficiency - stop PO iron for now. She is very nauseous with oral meds. 9. gastroparesis - continue domperidone. GI added Emend today. Appreciate their input 10. back pain - lidoderm patches prn 11.hypokalemia - was normal yesterday. low again today, likely secondary to diarrhea 12. cramps in legs - being made worse by hypokalemia; iron def can contribute as well. Mirapex didn't seem to help. Add low dose gabapentin. 13. slow progress - will be here a few more days. will need PT and OT Continued [facility] stay due to: abnormal vital signs, inadequate po fluid intake, inadequate oral pain control, voiding difficulties, ambulation difficulties, multiple IV medications needed Discharge planning: uncertain
[2017-03-18 16:20] VITALS: BP 121/70; PULSE 76; TEMP 37.2; O2SAT 95
[2017-03-18] MEDS: ATORVASTATIN 20 MG TAB PO SCH (21:10)
[2017-03-18] MEDS: MAGNESIUM OXIDE 400 MG TAB PO SCH (21:11)
[2017-03-18] MEDS: LISINOPRIL 10 MG TAB PO SCH (21:14)
[2017-03-18] MEDS: PRAMIPEXOLE DIHYDROCHLORIDE 0.25MG TAB PO SCH (21:24)
[2017-03-18] MEDS ORDERED: NURSING VERBAL MED ORDER ONE (22:30)
[2017-03-18] MEDS: FLUTICASONE PROPIONATE NA SPR 16 GM BTL NAE SCH (23:00)
[2017-03-18 23:47] VITALS: BP 129/76; PULSE 66; TEMP 36.8; O2SAT 94
[2017-03-19] MEDS: LORATADINE 10 MG TAB PO SCH (04:15)
[2017-03-19] MEDS: DOMPERIDONE 10 MG PO SCH ×4 (06:02→20:18)
[2017-03-19] MEDS: HYDROCODONE/ACETAMOPHEN 5/325MG TAB PO PRN ×2 (06:24→16:12)
[2017-03-19 07:07] VITALS: BP 128/67; PULSE 93; TEMP 36.8; O2SAT 95
[2017-03-19] MEDS: BOOST BREEZE NUTRITION DRINK 1 BOX PO SCH ×2 (08:00→20:00)
[2017-03-19] MEDS: HEPARIN SOD 5000 UNIT/0.5 ML CARP SQ SCH ×2 (08:56→21:00)
[2017-03-19] MEDS: ETHACRYNIC ACID 25 MG TAB PO SCH (08:59)
[2017-03-19] MEDS: METOPROLOL TARTRATE 25 MG TAB PO SCH (09:00)
[2017-03-19] MEDS: MAGNESIUM OXIDE 400 MG TAB PO SCH ×2 (09:01→20:16)
[2017-03-19] MEDS: METHIMAZOLE 5 MG TAB PO SCH (09:01)
[2017-03-19] MEDS: GABAPENTIN 100 MG CAP PO SCH ×3 (09:02→20:19)
[2017-03-19] MEDS: FAMOTIDINE 20 MG TAB PO SCH ×2 (09:03→20:16)
[2017-03-19] MEDS: RASPBERRY SYRUP 5 ML UDP PO SCH ×4 (09:04→20:15)
[2017-03-19] MEDS: PANTOprazole SOD 40 MG TAB PO SCH (09:04)
[2017-03-19] MEDS: CALCITRIOL 0.25 MCG CAP PO SCH (09:05)
[2017-03-19] MEDS: VANCOMYCIN HCL 125 MG/2.5ML SOLN PO SCH ×4 (09:05→20:24)
[2017-03-19] MEDS: LIDODERM (LIDOCAINE) PATCH 5% TD SCH (09:16)
[2017-03-19] MEDS: PRAMIPEXOLE DIHYDROCHLORIDE 0.25MG TAB PO SCH (10:42)
[2017-03-19] MEDS ORDERED: POTASSIUM CHLORIDE 10 MEQ TABCR PO ONE ×2 (11:15→17:00)
[2017-03-19] MEDS ORDERED: COLCHICINE 0.6 MG TAB PO ONE (11:30)
[2017-03-19 12:13] LABS: BUN/CREATININE RATIO 15.3 (10-20); CALCIUM 8.3 mg/dl (8.5-10.1); CREATININE 1.6 mg/dl (0.60-1.20); MAGNESIUM 1.6 mg/dl (1.8-2.4); POTASSIUM 3.3 mmol/L (3.5-5.1)
[2017-03-19 12:19] LABS: URIC ACID 12.1 mg/dl (2.6-7.2)
--- NOTE | 2017-03-19 12:32 | Gastroenterology Progress Note ---
Progress Note Date of Service: March 19, 2017 Subjective Pt evaluation today including: conversation w/ patient I feel mildly improved Review of Systems Constitutional: No chills, No fatigue, No fever, No problem reported, No see HPI, No sweats, No weakness, No weight loss Eyes: No diplopia, No discharge, No eye pain, No problem reported, No redness, No see HPI, No worsening of vision ENT: No dental problems, No hearing loss, No nasal symptoms, No pain on swallowing, No problem reported, No see HPI, No sore throat, No tinnitus, No trouble swallowing, No unusual epistaxis Respiratory: No cough, No dyspnea at rest, No dyspnea on exertion, No hemoptysis, No problem reported, No see HPI, No shortness of breath, No sputum, No wheezing Cardiac: No PND, No chest pain, No claudication, No edema, No orthopnea, No palpitations, No problem reported, No see HPI Abdomen: No GI bleeding, No acolic stools, No constipation, No dark urine, No diarrhea, No dysphagia, No jaundice, No nausea, No odynophagia, No pain, No problem reported, No see HPI, No vomiting Musculoskeletal: No calf pain, No joint pain, No muscle pain, No problem reported, No see HPI, No swelling Medications Current Inpatient Medications Medications (Trade) Dose Ordered Sig/[place] Route Start Time Stop Time Status Last Admin Dose Admin Calcitriol (Rocaltrol Cap) 0.25 mcg QAM PO 03/12/17 09:00 04/11/17 08:59 03/19/17 09:05 0.25 MCG Methimazole (Methimazole Tab) 2.5 mg QAM PO 03/12/17 09:00 04/11/17 08:59 03/19/17 09:01 2.5 MG Atorvastatin Calcium (Lipitor Tab) 20 mg HS PO 03/13/17 21:00 04/12/17 20:59 03/18/17 21:10 20 MG Vancomycin HCl (Vancomycin Oral Soln) 125 mg QID PO 03/12/17 09:00 03/22/17 08:59 03/19/17 09:05 125 MG Morphine Sulfate (MoRPHine SULFATE INJ) 2 mg Q4H PRN IV 03/12/17 07:15 03/26/17 07:14 03/17/17 05:50 2 MG Acetaminophen (Tylenol Tab) 650 mg Q4H PRN PO 03/12/17 07:15 04/11/17 07:14 Ondansetron HCl (Zofran Inj) 4 mg Q6H PRN IV 03/12/17 07:15 04/11/17 07:14 03/18/17 08:25 4 MG Raspberry (Raspberry Syrup 5ml Cup) 5 ml QID PO 03/12/17 09:00 03/26/17 08:59 03/19/17 09:04 5 ML Heparin Sodium (Porcine) (Heparin Sq 5000 Unit/0.5ml) 5,000 unit Q12 SQ 03/12/17 21:00 04/11/17 20:59 03/19/17 08:56 5,000 UNIT Heparin Sodium (Porcine) (Heparin 10 Unit/ ml 5 ml Flush) 5 ml PRN PRN FLUSH 03/13/17 01:30 04/12/17 01:29 03/19/17 11:25 5 ML Famotidine (Pepcid Tab) 10 mg BID PO 03/14/17 21:00 04/13/17 20:59 03/19/17 09:03 10 MG Prednisone (PredniSONE TAB) 5 mg Taper DAILY PO 03/15/17 09:00 03/18/18 08:59 03/19/17 09:03 5 MG Domperidone Maleate (Domperidone) 10 mg ACHS PO 03/14/17 16:15 04/13/17 16:14 03/19/17 12:00 10 MG Folic Acid (Folvite Tab) 1 mg QAM PO 03/14/17 16:15 04/13/17 16:14 03/19/17 08:59 1 MG Ethacrynic Acid (Edecrin Tab) 75 mg QAM PO 03/15/17 12:00 04/14/17 11:59 03/19/17 08:59 75 MG Metoprolol Tartrate (Lopressor Tab) 12.5 mg QAM PO 03/15/17 09:00 04/14/17 08:59 03/19/17 09:00 12.5 MG Tramadol HCl (Ultram Tab) 50 mg Q6H PRN PO 03/15/17 12:00 04/14/17 11:59 03/18/17 03:39 50 MG Lidocaine (Lidoderm Patch 5%) 2 patch QAM TD 03/15/17 14:30 04/14/17 14:29 03/15/17 16:11 2 PATCH Acetaminophen/ Hydrocodone Bitart ([place] 5/325 Tab) 0.5 tab Q6H PRN PO 03/15/17 13:30 03/29/17 13:29 03/19/17 06:24 0.5 TAB Miscellaneous (Remove Lidoderm Patch) 2 ea DAILY@21 N/A 03/15/17 21:00 04/14/17 20:59 03/18/17 21:11 2 EA Pramipexole Dihydrochloride (miraPEX TAB) 0.25 mg HS PO 03/16/17 21:00 04/15/17 20:59 03/19/17 10:42 0.25 MG Lisinopril (Zestril Tab) 10 mg HS PO 03/16/17 21:00 04/15/17 20:59 03/18/17 21:14 10 MG Gabapentin (Neurontin Cap) 100 mg TID PO 03/17/17 10:15 04/16/17 10:14 03/19/17 09:02 100 MG Pantoprazole Sodium (Protonix Tab) 40 mg DAILY PO 03/18/17 08:00 04/17/17 07:59 03/19/17 09:04 40 MG Enteral Nutritional Formula (Boost Breeze Nutritional Drink) 1 box BID PO 03/17/17 20:00 04/16/17 19:59 Magnesium Oxide (Mag-Ox Tab) 400 mg BID PO 03/18/17 20:00 04/17/17 19:59 03/19/17 09:01 400 MG Loratadine (Claritin Tab) 10 mg QAM PO 03/19/17 08:00 04/18/17 07:59 03/19/17 04:15 10 MG Cholestyramine Resin (Questran Powder Light) 1 gm BID PRN PO 03/18/17 12:00 04/17/17 11:59 Fluticasone Propionate (Flonase Nasal Damon) 2 sprays HS ROBIN 03/18/17 23:00 04/17/17 22:59 Colchicine (Colchicine Tab) 0.6 mg DAILY PO 03/20/17 08:00 04/19/17 07:59 Objective Vital Signs Date Time Temp Pulse Resp B/P Pulse Ox O2 Delivery O2 Flow Rate FiO2 03/19/17 07:07 36.8 93 22 128/67 95 Room Air 03/18/17 23:47 36.8 66 18 129/76 94 Room Air 03/18/17 16:20 37.2 76 18 121/70 95 Room Air 03/18/17 16:00 95 Room Air Physical Exam General Appearance: WD/WN, no apparent distress Eyes: normal inspection Neck: supple Respiratory/Chest: chest non-tender, lungs clear Cardiovascular: regular rate, rhythm, no edema Abdomen: normal bowel sounds, non tender, soft, no organomegaly Extremities: normal range of motion, non-tender Neurologic/Psych: hot strip finisher II-XII nml as tested Skin: no jaundice Laboratory Results Last 24 Hours Test 03/19/17 11:23 Sodium Level 131 mmol/L Potassium Level 3.3 mmol/L Chloride Level 89 mmol/L Carbon Dioxide Level 35 mmol/L Anion Gap 7.0 mmol/L Blood Urea Nitrogen 25 mg/dl Creatinine 1.60 mg/dl Est Creatinine Clear Calc Drug Dose 28.3 ml/min Estimated GFR () 34.7 Estimated GFR (Non- 29.9 BUN/Creatinine Ratio 15.3 Random Glucose 114 mg/dl Uric Acid 12.1 mg/dl Calcium Level 8.3 mg/dl Magnesium Level 1.6 mg/dl Assessment and Plan Ms. Phoenix is an 81 yr old female with C-diff, with clinical sepsis which is improving, blood cultures negative thus far. KUB today for distention on improved on yesterdays film-if recurrs please consider Toxic megacolon and obtain general surgery consultation Hold narcotics Continue full liquid diet Vancomycin at 125mg po qid and for a pulse tapering dose Suggest low dose daily PPI given report of nausea after medication use and burping/belching on pepcid Recommended holding domperidone as can exacerbate diarrhea, but patient refused that IF WBC count increases, abdominal pain recurrs, or ileus recurs consider toxic megacolon. Also given hx of IgG deficiency would consider IV IG if ok with ID/ rheum given her scleroderma. If does not improve on vanco (think the pulse tapering dose would be superior to dificid) then consider tx for stool transplant. Ok to add Questran 1 time daily (appreciate recs from ID)
[2017-03-19] MEDS: MAGNESIUM SULFATE 1GM / D5W 1 GM in PREMIXED IN D5W 100 ML IV SCH ×2 (13:28→14:41)
--- NOTE | 2017-03-19 14:02 | DIAGNOSTIC IMAGING REPORT ---
KUB HISTORY: c.diff, ileus, meausre if dilation present COMPARISON: KUB 03/18/2017. FINDINGS: No significant bowel distention. The descending colon measures up to 5.7 cm in diameter. This remains unchanged. No evidence for bowel obstruction. Surgical clips within the upper abdomen. No definite pneumoperitoneum or pneumatosis. No renal calculi. No ureteral calculi. IMPRESSION: No change from the prior study. No significant bowel distention. Electronically signed by: Sam Jones M.D. 03/19/2017 2:01 PM Dictated Date/Time: 03/19/2017 2:00 PM
[2017-03-19 15:00] VITALS: BP 130/73; PULSE 83; TEMP 37.9; O2SAT 92
[2017-03-19 18:06] VITALS: TEMP 37.6
[2017-03-19] MEDS ORDERED: MAGNESIUM OXIDE 400 MG TAB PO SCH (20:00)
[2017-03-19] MEDS: LISINOPRIL 10 MG TAB PO SCH (20:17)
[2017-03-19] MEDS: FLUTICASONE PROPIONATE NA SPR 16 GM BTL NAE SCH (20:18)
[2017-03-19] MEDS: ATORVASTATIN 20 MG TAB PO SCH (20:20)
--- NOTE | 2017-03-19 21:40 | Progress Note ---
Subjective Date of Service: March 19, 2017. Subjective Pt evaluation today including: conversation w/ patient, physical exam, chart review, lab review, review of studies (KUB x-ray), review of inpatient medication list Pain: b/l foot - MUCH worse on right; just sheets touching foot causes pain PO Intake: tolerating clears and/or full liquids Voiding: william catheter in place patient's main complaints are that of b/l leg pain and ankle pain apparently her IV flagyl was d/c in the last 48 hours due to concern it was causing "neuropathy" her most painful area is that of the great toe on the right and the right mid- foot left great toe is also painful denies any pulmonary symptoms - "that's doing much better" she states still can't get out of bed still hoping to go home but she is now realizing that that is probably not an option expresses concern about her 48 yo son who is alone at home and has seizure d/o still w/ diarrhea - staff, however, report it IS better Problem List Medical Problems: (1) Abdominal pain Status: Acute (2) Hypotension Status: Acute (3) Ischemic colitis Status: Acute (4) Rectal bleed Status: Acute Review of Systems Constitutional: + weakness Respiratory: No cough, No dyspnea at rest, No sputum, No wheezing Cardiac: No chest pain, No orthopnea Abdomen: + pain (LLQ) Objective Vital Signs Date Time Temp Pulse Resp B/P Pulse Ox O2 Delivery O2 Flow Rate FiO2 03/19/17 18:30 Room Air 03/19/17 18:06 37.6 03/19/17 15:00 37.9 83 16 130/73 92 Room Air 03/19/17 09:00 Room Air 03/19/17 07:07 36.8 93 22 128/67 95 Room Air 03/18/17 23:47 36.8 66 18 129/76 94 Room Air Physical Exam General Appearance: no apparent distress, + pertinent finding (very very anxious and nearly tearful at times) ENT: pharynx normal (no thrush) Neck: no JVD Respiratory/Chest: lungs clear, no respiratory distress, no accessory muscle use Cardiovascular: regular rate, rhythm, no gallop, no murmur Abdomen: normal bowel sounds, soft, no organomegaly, + tenderness (LLQ - very mild) Extremities: no pedal edema, + pertinent finding (podagra - mod/severe on right ; very mild on left; very tender to touch on right first MTP joint; mid foot on right also tender to touch ) Comments: pulses b/l feet 2+ Laboratory Results Last 24 Hours Test 03/19/17 11:23 Sodium Level 131 mmol/L Potassium Level 3.3 mmol/L Chloride Level 89 mmol/L Carbon Dioxide Level 35 mmol/L Anion Gap 7.0 mmol/L Blood Urea Nitrogen 25 mg/dl Creatinine 1.60 mg/dl Est Creatinine Clear Calc Drug Dose 28.3 ml/min Estimated GFR () 34.7 Estimated GFR (Non- 29.9 BUN/Creatinine Ratio 15.3 Random Glucose 114 mg/dl Uric Acid 12.1 mg/dl Calcium Level 8.3 mg/dl Magnesium Level 1.6 mg/dl Assessment and Plan 81yo female with: 1. septic shock 2nd to c. diff colitis - shock resolved. 2. c. diff colitis - severe - with associated ileus, but radiographically that is improved. appreciate GI input and ID input. Day #8 of oral vanco. Flagyl d/c. Defer length of Rx to GI and ID. Agree she may need stool transplant in future. 3. steroid dependent scleroderma - was on stress dose steroids for #1, but with worsening gout, will increase the prednisone again. 4. acute renal failure 2nd to ATN in setting of #1 - resolved. Cr now 1.6. 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 6. hyperthyroidism - TSH normal; cont same dose of methimazole. 7. acute/chronic diastolic CHF - acute component resolved. Cont daily ethacrynic acid 75mg. 8. folic acid deficiency - 1mg po folic acid daily. 9. anemia of chronic disease +/- iron deficiency - ferrous sulfate 325mg BID. 10. hyperlipidemia - statin agent. 11. gastroparesis - no vomiting at this time. Tolerating clears/full liquids. 12. back pain - lidoderm patches prn. Improved. 13. hypomagnesemia - replace w/ 2 grams mag sulfate; repeat Mag in am. 2nd to diuretics and diarrhea. 14. hypokalemia - replace PO and repeat K in am. Both low K and mag contributing to #15. 15. cramps in legs - replete K and mag. 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 Increase steroids. Uric acid very high. In 3-4 weeks would add allopurinol. 17. hyponatremia - likely due to diarrhea and diuretic. Repeat AM and follow carefully. 18. low-grade fever - could be from acute gout. Has propensity for UTIs and has had william for over a week. Send u/a and urine cx. Rx if needed. cont PT, OT needs rehab I spoke with LUIZ today - I asked LUIZ to see if we could set up home health for the patient's son at her house LUIZ confirmed that he has private caregivers in Ms. Phoenix's absence Continued [facility] stay due to: inadequate po fluid intake, inadequate oral pain control, voiding difficulties, ambulation difficulties Discharge planning: uncertain
[2017-03-20 01:03] VITALS: BP 125/57; PULSE 69; TEMP 37.1; O2SAT 94
[2017-03-20] MEDS: HYDROCODONE/ACETAMOPHEN 5/325MG TAB PO PRN (01:15)
[2017-03-20 01:17] LABS: MANUAL MICROSCOPIC REQUIRED? NO; REVIEW REQ? NO; URINE APPEARANCE CLEAR (CLEAR); URINE BILIRUBIN NEG (NEG); URINE COLOR YELLOW; URINE NITRITE NEG (NEG); URINE SPECIFIC GRAVITY 1.008 (1.000-1.030); UROBILINOGEN NEG (NEG)
[2017-03-20 06:07] LABS: BASO % 0.1 %; BASO ABS # 0.02 K/uL (0-0.2); EOS % 0.1 %; HEMATOCRIT 24.8 % (37-47); IG% 3.5 %; LYMPH ABS # 0.67 K/uL (1.2-3.4); MEAN CELL VOLUME 82.9 fL (80-100); MEAN CORPUSCULAR HEMOGLOBIN 27.4 pg (25-34); MEAN CORPUSCULAR HGB CONC 33.1 g/dl (32-36); MEAN PLATELET VOLUME 10.2 fL (7.4-10.4); MONO % 6.6 %; NEUT % 84.7 %; PLATELET COUNT 258 K/uL (130-400); RED BLOOD COUNT 2.99 M/uL (4.2-5.4)
[2017-03-20] MEDS: DOMPERIDONE 10 MG PO SCH ×4 (06:26→20:23)
[2017-03-20 06:33] LABS: COMPLETE YES; TOXIC GRANULATION 1+
[2017-03-20 06:57] LABS: BUN/CREATININE RATIO 17.5 (10-20); CALCIUM 7.9 mg/dl (8.5-10.1); CREATININE 1.3 mg/dl (0.60-1.20); MAGNESIUM 2.2 mg/dl (1.8-2.4); POTASSIUM 4.2 mmol/L (3.5-5.1)
[2017-03-20 07:39] VITALS: BP_SYST 131; PULSE 77; TEMP 36.3; O2SAT 96
[2017-03-20 08:00] VITALS: O2SAT 96
[2017-03-20] MEDS: METHIMAZOLE 5 MG TAB PO SCH (08:44)
[2017-03-20] MEDS: FAMOTIDINE 20 MG TAB PO SCH ×2 (08:44→20:21)
[2017-03-20] MEDS: MAGNESIUM OXIDE 400 MG TAB PO SCH ×2 (08:44→20:20)
[2017-03-20] MEDS: LORATADINE 10 MG TAB PO SCH (08:45)
[2017-03-20] MEDS: PANTOprazole SOD 40 MG TAB PO SCH (08:46)
[2017-03-20] MEDS: METOPROLOL TARTRATE 25 MG TAB PO SCH (08:46)
[2017-03-20] MEDS: VANCOMYCIN HCL 125 MG/2.5ML SOLN PO SCH ×4 (08:48→20:19)
[2017-03-20] MEDS: CALCITRIOL 0.25 MCG CAP PO SCH (08:49)
[2017-03-20] MEDS: RASPBERRY SYRUP 5 ML UDP PO SCH ×4 (08:49→20:20)
[2017-03-20] MEDS: CHOLESTYRAMINE LIGHT 4 GM PKT PO SCH ×2 (08:51→18:27)
[2017-03-20] MEDS: BOOST BREEZE NUTRITION DRINK 1 BOX PO SCH ×2 (08:51→20:00)
[2017-03-20] MEDS: COLCHICINE 0.6 MG TAB PO SCH (08:51)
[2017-03-20] MEDS: LIDODERM (LIDOCAINE) PATCH 5% TD SCH (08:52)
[2017-03-20] MEDS: GABAPENTIN 100 MG CAP PO SCH ×3 (08:52→20:22)
[2017-03-20] MEDS: ETHACRYNIC ACID 25 MG TAB PO SCH (08:54)
[2017-03-20] MEDS: HEPARIN SOD 5000 UNIT/0.5 ML CARP SQ SCH ×2 (08:55→21:00)
[2017-03-20] MEDS ORDERED: SODIUM CHLORIDE 0.9% 1000ML 1,000 ML IV SCH (12:00)
--- NOTE | 2017-03-20 16:38 | Medical Student: [facility] ---
Med Student Progress Note Date of Service March 20, 2017. Subjective Pt evaluation today including: conversation w/ patient, physical exam, chart review, lab review, review of studies, conversation w/ workers compensation consultant Pain: mild PO Intake: clear liquids Voiding: william catheter in place patient reports increase in diarrhea overnight. says that she has had 6 or seven loose stools overnight, and 6 more between 7 am and 4 today. She says that her right foot pain is much improved, both in the cramping and toe pain. she reports some memory difficulties and dulled thinking. otherwise she is concerned most about the efficacy of vancomycin in her treatment and stresses that dificid helped her previous episode of c diff more. no chest pain or shortness of breath. Review of Systems Constitutional: No chills, No fever Respiratory: No cough, No shortness of breath, No sputum, No wheezing Cardiac: No chest pain, No orthopnea Abdomen: + diarrhea, + nausea, + pain, No vomiting Objective Vital Signs Date Time Temp Pulse Resp B/P Pulse Ox O2 Delivery O2 Flow Rate FiO2 03/20/17 08:00 96 Room Air 03/20/17 07:39 36.3 77 20 131/ 96 Room Air 61.0 03/20/17 01:03 37.1 69 20 125/57 94 Room Air 03/20/17 00:47 Room Air 03/19/17 18:30 Room Air 03/19/17 18:06 37.6 Physical Exam General Appearance: + mild distress ENT: hearing grossly normal, + pertinent finding (mucus membranes slightly dry) Neck: supple, no JVD Respiratory/Chest: chest non-tender, lungs clear, normal breath sounds Cardiovascular: regular rate, rhythm, no edema, no gallop, no murmur Abdomen: normal bowel sounds, non tender, soft Extremities: + pertinent finding (right great toe swollen about twice as large as left) Neurologic/Psychiatric: alert, oriented x 3 Skin: normal color, no rash Laboratory Results Last 24 Hours Test 03/20/17 00:40 03/20/17 05:27 03/20/17 09:42 03/20/17 11:00 Urine Color YELLOW Urine Appearance CLEAR Urine pH 6.0 Urine Specific [place] 1.008 Urine Protein NEG Urine Glucose (UA) NEG Urine Ketones NEG Urine Occult Blood NEG Urine Nitrite NEG Urine Bilirubin NEG Urine Urobilinogen NEG Urine Leukocyte Esterase NEG White Blood Count 13.50 K/uL Red Blood Count 2.99 M/uL Hemoglobin 8.2 g/dL Hematocrit 24.8 % Mean Corpuscular Volume 82.9 fL Mean Corpuscular Hemoglobin 27.4 pg Mean Corpuscular Hemoglobin Concent 33.1 g/dl Platelet Count 258 K/uL Mean Platelet Volume 10.2 fL Neutrophils (%) (Auto) 84.7 % Lymphocytes (%) (Auto) 5.0 % Monocytes (%) (Auto) 6.6 % Eosinophils (%) (Auto) 0.1 % Basophils (%) (Auto) 0.1 % Neutrophils # (Auto) 11.44 K/uL Lymphocytes # (Auto) 0.67 K/uL Monocytes # (Auto) 0.89 K/uL Eosinophils # (Auto) 0.01 K/uL Basophils # (Auto) 0.02 K/uL RDW Standard Deviation 45.3 fL RDW Coefficient of Variation 15.1 % Immature Granulocyte % (Auto) 3.5 % Immature Granulocyte # (Auto) 0.47 K/uL Toxic Granulation 1+ Sodium Level 124 mmol/L 124 mmol/L Potassium Level 4.2 mmol/L Chloride Level 86 mmol/L Carbon Dioxide Level 30 mmol/L Anion Gap 8.0 mmol/L Blood Urea Nitrogen 23 mg/dl Creatinine 1.30 mg/dl Est Creatinine Clear Calc Drug Dose 34.9 ml/min Estimated GFR () 44.6 Estimated GFR (Non- 38.4 BUN/Creatinine Ratio 17.5 Random Glucose 100 mg/dl Calcium Level 7.9 mg/dl Magnesium Level 2.2 mg/dl Osmolality 258 mOsm/kg Urine Osmolality 91 mOms/kg Urine Random Sodium 17 mEq/L Medications Current Inpatient Medications Medications (Trade) Dose Ordered Sig/[place] Route Start Time Stop Time Status Last Admin Dose Admin Calcitriol (Rocaltrol Cap) 0.25 mcg QAM PO 03/12/17 09:00 04/11/17 08:59 03/20/17 08:49 0.25 MCG Methimazole (Methimazole Tab) 2.5 mg QAM PO 03/12/17 09:00 04/11/17 08:59 03/20/17 08:44 2.5 MG Atorvastatin Calcium (Lipitor Tab) 20 mg HS PO 03/13/17 21:00 6/6/17 20:59 03/19/17 20:20 20 MG Vancomycin HCl (Vancomycin Oral Soln) 125 mg QID PO 03/12/17 09:00 03/22/17 08:59 03/20/17 13:56 125 MG Morphine Sulfate (MoRPHine SULFATE INJ) 2 mg Q4H PRN IV 03/12/17 07:15 03/26/17 07:14 03/17/17 05:50 2 MG Acetaminophen (Tylenol Tab) 650 mg Q4H PRN PO 03/12/17 07:15 04/11/17 07:14 Ondansetron HCl (Zofran Inj) 4 mg Q6H PRN IV 03/12/17 07:15 04/11/17 07:14 03/18/17 08:25 4 MG Raspberry (Raspberry Syrup 5ml Cup) 5 ml QID PO 03/12/17 09:00 03/26/17 08:59 03/20/17 14:09 5 ML Heparin Sodium (Porcine) (Heparin Sq 5000 Unit/0.5ml) 5,000 unit Q12 SQ 03/12/17 21:00 04/11/17 20:59 03/20/17 08:55 5,000 UNIT Heparin Sodium (Porcine) (Heparin 10 Unit/ ml 5 ml Flush) 5 ml PRN PRN FLUSH 03/13/17 01:30 04/12/17 01:29 03/20/17 09:48 5 ML Famotidine (Pepcid Tab) 10 mg BID PO 03/14/17 21:00 04/13/17 20:59 03/20/17 08:44 10 MG Prednisone (PredniSONE TAB) 5 mg Taper DAILY PO 03/15/17 09:00 03/18/18 08:59 03/20/17 08:46 5 MG Domperidone Maleate (Domperidone) 10 mg ACHS PO 03/14/17 16:15 04/13/17 16:14 03/20/17 11:04 10 MG Folic Acid (Folvite Tab) 1 mg QAM PO 03/14/17 16:15 04/13/17 16:14 03/20/17 08:45 1 MG Ethacrynic Acid (Edecrin Tab) 75 mg QAM PO 03/15/17 12:00 04/14/17 11:59 Future Hold 03/19/17 08:59 75 MG Metoprolol Tartrate (Lopressor Tab) 12.5 mg QAM PO 03/15/17 09:00 04/14/17 08:59 03/20/17 08:46 12.5 MG Tramadol HCl (Ultram Tab) 50 mg Q6H PRN PO 03/15/17 12:00 04/14/17 11:59 03/18/17 03:39 50 MG Lidocaine (Lidoderm Patch 5%) 2 patch QAM TD 03/15/17 14:30 04/14/17 14:29 03/15/17 16:11 2 PATCH Acetaminophen/ Hydrocodone Bitart ([place] 5/325 Tab) 0.5 tab Q6H PRN PO 03/15/17 13:30 03/29/17 13:29 03/20/17 01:15 0.5 TAB Miscellaneous (Remove Lidoderm Patch) 2 ea DAILY@21 N/A 03/15/17 21:00 04/14/17 20:59 03/18/17 21:11 2 EA Pramipexole Dihydrochloride (miraPEX TAB) 0.25 mg HS PO 03/16/17 21:00 04/15/17 20:59 03/19/17 10:42 0.25 MG Lisinopril (Zestril Tab) 10 mg HS PO 03/16/17 21:00 04/15/17 20:59 03/19/17 20:17 10 MG Gabapentin (Neurontin Cap) 100 mg TID PO 03/17/17 10:15 04/16/17 10:14 03/20/17 13:56 100 MG Pantoprazole Sodium (Protonix Tab) 40 mg DAILY PO 03/18/17 08:00 04/17/17 07:59 03/20/17 08:46 40 MG Enteral Nutritional Formula (Boost Breeze Nutritional Drink) 1 box BID PO 03/17/17 20:00 04/16/17 19:59 Magnesium Oxide (Mag-Ox Tab) 400 mg BID PO 03/18/17 20:00 04/17/17 19:59 03/20/17 08:44 400 MG Loratadine (Claritin Tab) 10 mg QAM PO 03/19/17 08:00 04/18/17 07:59 03/20/17 08:45 10 MG Fluticasone Propionate (Flonase Nasal [place]) 2 sprays HS ROBIN 03/18/17 23:00 04/17/17 22:59 03/19/17 20:18 2 SPRAYS Colchicine (Colchicine Tab) 0.6 mg DAILY PO 03/20/17 08:00 04/19/17 07:59 03/20/17 08:51 0.6 MG Cholestyramine Resin 4 gm 4 gm DAILY@0700 PO 03/20/17 07:00 04/19/17 06:59 Sodium Chloride (Nss 1000ml) 1,000 ml @ 75 mls/hr [id number] IV 03/20/17 12:00 03/21/17 01:19 03/20/17 12:28 75 MLS/HR Assessment and Plan Assessment and Plan: This is an 81 yo female who initially presented with sepsis secondary to severe recurrent c. diff colitis and acute on chronic kidney disease. 1. Sepsis: -Blood pressure continues to be stable. -Prednisone taper was started at 20 mg and will be tapered to her chronic dose of 5 mg. -Continue PO vancomycin. 2. C diff colitis: -Diarrhea continues to be problematic. -Began cholestyramine to thicken stools and decrease frequency. -Continue PO vancomycin for now. Will consider switch to fidoxamicin if diarrhea does not improve with cholestyramine. -Continue to advance diet as tolerated and watch for possible mesenteric ischemia due to history. 3. CORNELL: -Resolved 4. Hyponatremia: -Likely secondary to diarrhea/diuresis and decreased PO intake. -Urine studies show decreased urine osms and na, with decreased serum osms. -Began IV NS 1000 ml at 75 ml/hr to restore sodium to normal levels. 4. Diastolic CHF: -Patient appears stable today. -Hold ethacrynic acid until hyponatremia resolves -Will continue to monitor fluid status 5. HTN: -Metoprolol resumed today and will be given 12.5 mg po qam. -Lisinopril resumed. 6. Anemia: -Continue to follow blood counts daily. -Continue Folic acid 1 mg po qam 7. DVT prophylaxis: -Receiving lovenox sub-q for prophylaxis Continued [facility] stay due to: inadequate po fluid intake, inadequate oral pain control, voiding difficulties, ambulation difficulties Discharge planning: uncertain
[2017-03-20 16:43] VITALS: BP 143/82; PULSE 70; TEMP 36.9; O2SAT 97
[2017-03-20] MEDS: FLUTICASONE PROPIONATE NA SPR 16 GM BTL NAE SCH (20:21)
[2017-03-20] MEDS: ATORVASTATIN 20 MG TAB PO SCH (20:21)
[2017-03-20] MEDS: PRAMIPEXOLE DIHYDROCHLORIDE 0.25MG TAB PO SCH (20:22)
[2017-03-20] MEDS: LISINOPRIL 10 MG TAB PO SCH (20:24)
[2017-03-20 21:05] LABS: BUN/CREATININE RATIO 15.6 (10-20); CALCIUM 7.3 mg/dl (8.5-10.1); CREATININE 1.3 mg/dl (0.60-1.20); POTASSIUM 4.4 mmol/L (3.5-5.1)
--- NOTE | 2017-03-20 23:34 | Progress Note ---
Subjective Date of Service: March 20, 2017. Subjective Pt evaluation today including: conversation w/ patient, physical exam, chart review, lab review, conversation w/ managing consultant (GI by phone), review of inpatient medication list Pain: right foot pain much better but still w/ paresthias of both feet PO Intake: very poor Voiding: william catheter in place patient w/ multiple complaints - 1. copious loose stool - confirmed by staff. she is incontinent of stool at times she voices to me she thinks she needs to be back on dificid 2. concerned about ongoing paresthesias in both feet; a few days ago it was attributed to flagyl use and the flagyl was stopped 3. denies back pain but reports some pain in the right leg 4. very poor appetite and oral intake 5. very fatigued and tired 6. "juan palbo horses" and cramps are resolved today 7. thinks "memory" is getting worse since being in the hospital she IS willing to go to SNF for rehab Problem List Medical Problems: (1) Abdominal pain Status: Acute (2) Hypotension Status: Acute (3) Ischemic colitis Status: Acute (4) Rectal bleed Status: Acute Review of Systems Constitutional: No chills, No fever Respiratory: No cough, No dyspnea at rest Cardiac: No PND, No chest pain, No orthopnea Abdomen: + diarrhea, + nausea, + pain, No GI bleeding, No vomiting Objective Vital Signs Date Time Temp Pulse Resp B/P Pulse Ox O2 Delivery O2 Flow Rate FiO2 03/20/17 16:43 36.9 70 18 143/82 97 Room Air 03/20/17 16:00 Room Air 03/20/17 08:00 96 Room Air 03/20/17 07:39 36.3 77 20 131/ 96 Room Air 61.0 03/20/17 01:03 37.1 69 20 125/57 94 Room Air 03/20/17 00:47 Room Air Physical Exam General Appearance: no apparent distress, + pertinent finding (actually looks good today) ENT: pharynx normal Neck: no JVD Respiratory/Chest: lungs clear, no respiratory distress, no accessory muscle use Cardiovascular: regular rate, rhythm, no gallop, no murmur Abdomen: normal bowel sounds, non tender, soft, no organomegaly Extremities: no pedal edema, + pertinent finding (right first MTP joint with less swelling, redness, and pain; left first MTP joint essentially normal today) Neurologic/Psychiatric: alert, oriented x 3 Skin: no rash, + pertinent finding (PICC line LUE clean ) Laboratory Results Last 24 Hours Test 03/20/17 00:40 03/20/17 05:27 03/20/17 09:42 03/20/17 11:00 Urine Color YELLOW Urine Appearance CLEAR Urine pH 6.0 Urine Specific [place] 1.008 Urine Protein NEG Urine Glucose (UA) NEG Urine Ketones NEG Urine Occult Blood NEG Urine Nitrite NEG Urine Bilirubin NEG Urine Urobilinogen NEG Urine Leukocyte Esterase NEG White Blood Count 13.50 K/uL Red Blood Count 2.99 M/uL Hemoglobin 8.2 g/dL Hematocrit 24.8 % Mean Corpuscular Volume 82.9 fL Mean Corpuscular Hemoglobin 27.4 pg Mean Corpuscular Hemoglobin Concent 33.1 g/dl Platelet Count 258 K/uL Mean Platelet Volume 10.2 fL Neutrophils (%) (Auto) 84.7 % Lymphocytes (%) (Auto) 5.0 % Monocytes (%) (Auto) 6.6 % Eosinophils (%) (Auto) 0.1 % Basophils (%) (Auto) 0.1 % Neutrophils # (Auto) 11.44 K/uL Lymphocytes # (Auto) 0.67 K/uL Monocytes # (Auto) 0.89 K/uL Eosinophils # (Auto) 0.01 K/uL Basophils # (Auto) 0.02 K/uL RDW Standard Deviation 45.3 fL RDW Coefficient of Variation 15.1 % Immature Granulocyte % (Auto) 3.5 % Immature Granulocyte # (Auto) 0.47 K/uL Toxic Granulation 1+ Sodium Level 124 mmol/L 124 mmol/L Potassium Level 4.2 mmol/L Chloride Level 86 mmol/L Carbon Dioxide Level 30 mmol/L Anion Gap 8.0 mmol/L Blood Urea Nitrogen 23 mg/dl Creatinine 1.30 mg/dl Est Creatinine Clear Calc Drug Dose 34.9 ml/min Estimated GFR () 44.6 Estimated GFR (Non- 38.4 BUN/Creatinine Ratio 17.5 Random Glucose 100 mg/dl Calcium Level 7.9 mg/dl Magnesium Level 2.2 mg/dl Osmolality 258 mOsm/kg Urine Osmolality 91 mOms/kg Urine Random Sodium 17 mEq/L Test 03/20/17 19:58 Sodium Level 125 mmol/L Potassium Level 4.4 mmol/L Chloride Level 89 mmol/L Carbon Dioxide Level 29 mmol/L Anion Gap 7.0 mmol/L Blood Urea Nitrogen 20 mg/dl Creatinine 1.30 mg/dl Est Creatinine Clear Calc Drug Dose 34.9 ml/min Estimated GFR () 44.6 Estimated GFR (Non- 38.4 BUN/Creatinine Ratio 15.6 Random Glucose 138 mg/dl Calcium Level 7.3 mg/dl Assessment and Plan 81yo female with: 1. septic shock 2nd to c. diff colitis - shock resolved. 2. c. diff colitis - severe - with associated ileus, but radiographically that is improved. appreciate GI input and ID input. despite radiographic improvement she continues with large #'s of stool. Day #9 of oral vanco. Flagyl recently d/c due to concern of neuropathy from such. Questran powder daily. Spoke with GI - options include changing to dificid vs continuing on the vanco for prolonged course (6 weeks). Stool transplant candidate?? Defer Rx to GI/ID. 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 4. acute renal failure 2nd to ATN in setting of #1 - resolved. Cr now 1.3. 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 6. hyperthyroidism - TSH normal; cont same dose of methimazole. 7. acute/chronic diastolic CHF - acute component resolved. Hold ethacrynic acid 75mg due to her worsening hyponatremia and volume contraction from the diarrhea. 8. folic acid deficiency - 1mg po folic acid daily. 9. anemia of chronic disease +/- iron deficiency - ferrous sulfate 325mg BID. H/h satisfactory at this time. 10. hyperlipidemia - statin agent. 11. gastroparesis - no vomiting at this time. Tolerating clears/full liquids. 12. back pain - lidoderm patches prn. Improved. 13. hypomagnesemia - resolved. 14. hypokalemia - resolved. 15. cramps in legs - resolved following repleting of K and mag. 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 Wean steroids. Cont colchicine. Allopurinol in 3-4 weeks. Uric acid level markedly elevated about 12. 17. hyponatremia - serum and urine studies c/w salt depletion. likely due to combination of diarrhea and diuretic use. Urine osm very, very low - when I visit with her she has 5-6 glasses of water at bedside. Could there be a dilutional component, too, due to polydipsia? Will give NS x 1 liter and recheck BMP tonight and then again in am. cont PT, OT needs rehab son has seizure disorder and lives at her home social work to look into whether home health services can be arranged for him while she is hospitalized Patient with reported poor oral intake for 7+ days ask ex assistant/program director to assess this does she need TPN or other means of nutrition?? add MVI cont the folic acid Continued [facility] stay due to: inadequate po fluid intake, inadequate oral pain control, voiding difficulties, ambulation difficulties Discharge planning: uncertain
[2017-03-20 23:50] VITALS: BP 112/71; PULSE 66; TEMP 36.9; O2SAT 96
[2017-03-21 05:35] LABS: HEMATOCRIT 25.7 % (37-47); MEAN CELL VOLUME 83.7 fL (80-100); MEAN CORPUSCULAR HEMOGLOBIN 27.7 pg (25-34); MEAN CORPUSCULAR HGB CONC 33.1 g/dl (32-36); MEAN PLATELET VOLUME 9.7 fL (7.4-10.4); PLATELET COUNT 307 K/uL (130-400); RED BLOOD COUNT 3.07 M/uL (4.2-5.4); WHITE BLOOD COUNT 11.26 K/uL (4.8-10.8)
[2017-03-21] MEDS: DOMPERIDONE 10 MG PO SCH ×4 (06:00→20:10)
[2017-03-21 06:02] LABS: BUN/CREATININE RATIO 16.6 (10-20); CALCIUM 7.7 mg/dl (8.5-10.1); CREATININE 1.1 mg/dl (0.60-1.20); MAGNESIUM 2.4 mg/dl (1.8-2.4); POTASSIUM 4.1 mmol/L (3.5-5.1)
[2017-03-21] MEDS: CHOLESTYRAMINE LIGHT 4 GM PKT PO SCH (06:43)
[2017-03-21 07:29] VITALS: BP 118/53; PULSE 71; TEMP 36.9; O2SAT 98
[2017-03-21] MEDS: LIDODERM (LIDOCAINE) PATCH 5% TD SCH (08:00)
[2017-03-21] MEDS: BOOST BREEZE NUTRITION DRINK 1 BOX PO SCH ×2 (08:00→20:00)
[2017-03-21] MEDS: ONDANSETRON INJ 2 MG/ML 2 ML VIAL IV PRN (08:46)
[2017-03-21] MEDS: HEPARIN SOD 5000 UNIT/0.5 ML CARP SQ SCH ×2 (09:40→20:09)
[2017-03-21] MEDS: VANCOMYCIN HCL 125 MG/2.5ML SOLN PO SCH ×2 (09:42→11:52)
[2017-03-21] MEDS: RASPBERRY SYRUP 5 ML UDP PO SCH ×4 (09:42→20:04)
[2017-03-21] MEDS: GABAPENTIN 100 MG CAP PO SCH ×3 (09:42→20:06)
[2017-03-21] MEDS: CEROVITE ADV FORMULA TAB PO SCH (09:42)
[2017-03-21] MEDS: MAGNESIUM OXIDE 400 MG TAB PO SCH (09:42)
[2017-03-21] MEDS: LORATADINE 10 MG TAB PO SCH (09:43)
[2017-03-21] MEDS: CALCITRIOL 0.25 MCG CAP PO SCH (09:43)
[2017-03-21] MEDS: FAMOTIDINE 20 MG TAB PO SCH (09:43)
[2017-03-21] MEDS: METHIMAZOLE 5 MG TAB PO SCH (09:43)
[2017-03-21] MEDS: METOPROLOL TARTRATE 25 MG TAB PO SCH (09:43)
[2017-03-21] MEDS: PANTOprazole SOD 40 MG TAB PO SCH (09:44)
[2017-03-21] MEDS: COLCHICINE 0.6 MG TAB PO SCH (09:44)
--- NOTE | 2017-03-21 10:23 | Gastroenterology Progress Note ---
Progress Note Date of Service: March 21, 2017 Subjective Pt evaluation today including: conversation w/ patient, conversation w/ family , physical exam, chart review, lab review Pt was seen and evaluated this AM. She continues to have loose stools that are running out of her. She no longer has constant abdominal pain. There is intermittent bilateral abdominal cramping and some mid abdominal tenderness throughout the day. Took a dose of questran yesterday - stools were more formed. Not always associated with a BM. No change in her nausea. Son is at bedside this AM. She was seen sitting upright in bed - this is the first time I' ve seen her feel well enough to positional herself. Review of Systems Constitutional: No chills, No fever Respiratory: No cough, No shortness of breath Cardiac: No chest pain Abdomen: + diarrhea, + nausea, + pain, No GI bleeding, No constipation, No vomiting Medications Current Inpatient Medications Medications (Trade) Dose Ordered Sig/[place] Route Start Time Stop Time Status Last Admin Dose Admin Calcitriol (Rocaltrol Cap) 0.25 mcg QAM PO 03/12/17 09:00 04/11/17 08:59 03/21/17 09:43 0.25 MCG Methimazole (Methimazole Tab) 2.5 mg QAM PO 03/12/17 09:00 04/11/17 08:59 03/21/17 09:43 2.5 MG Atorvastatin Calcium (Lipitor Tab) 20 mg HS PO 03/13/17 21:00 04/12/17 20:59 03/20/17 20:21 20 MG Vancomycin HCl (Vancomycin Oral Soln) 125 mg QID PO 03/12/17 09:00 03/22/17 08:59 03/21/17 09:42 125 MG Morphine Sulfate (MoRPHine SULFATE INJ) 2 mg Q4H PRN IV 03/12/17 07:15 03/26/17 07:14 03/17/17 05:50 2 MG Acetaminophen (Tylenol Tab) 650 mg Q4H PRN PO 03/12/17 07:15 04/11/17 07:14 Ondansetron HCl (Zofran Inj) 4 mg Q6H PRN IV 03/12/17 07:15 04/11/17 07:14 03/21/17 08:46 4 MG Raspberry (Raspberry Syrup 5ml Cup) 5 ml QID PO 03/12/17 09:00 03/26/17 08:59 03/21/17 09:42 5 ML Heparin Sodium (Porcine) (Heparin Sq 5000 Unit/0.5ml) 5,000 unit Q12 SQ 03/12/17 21:00 04/11/17 20:59 03/21/17 09:40 5,000 UNIT Heparin Sodium (Porcine) (Heparin 10 Unit/ ml 5 ml Flush) 5 ml PRN PRN FLUSH 03/13/17 01:30 04/12/17 01:29 03/21/17 05:27 10 ML Famotidine (Pepcid Tab) 10 mg BID PO 03/14/17 21:00 04/13/17 20:59 03/21/17 09:43 10 MG Domperidone Maleate (Domperidone) 10 mg ACHS PO 03/14/17 16:15 04/13/17 16:14 03/20/17 20:23 10 MG Folic Acid (Folvite Tab) 1 mg QAM PO 03/14/17 16:15 04/13/17 16:14 03/21/17 09:42 1 MG Ethacrynic Acid (Edecrin Tab) 75 mg QAM PO 03/15/17 12:00 04/14/17 11:59 Future Hold 03/19/17 08:59 75 MG Metoprolol Tartrate (Lopressor Tab) 12.5 mg QAM PO 03/15/17 09:00 04/14/17 08:59 03/21/17 09:43 12.5 MG Tramadol HCl (Ultram Tab) 50 mg Q6H PRN PO 03/15/17 12:00 04/14/17 11:59 03/18/17 03:39 50 MG Lidocaine (Lidoderm Patch 5%) 2 patch QAM TD 03/15/17 14:30 04/14/17 14:29 03/15/17 16:11 2 PATCH Acetaminophen/ Hydrocodone Bitart ([place] 5/325 Tab) 0.5 tab Q6H PRN PO 03/15/17 13:30 03/29/17 13:29 03/20/17 01:15 0.5 TAB Miscellaneous (Remove Lidoderm Patch) 2 ea DAILY@21 N/A 03/15/17 21:00 04/14/17 20:59 03/18/17 21:11 2 EA Pramipexole Dihydrochloride (miraPEX TAB) 0.25 mg HS PO 03/16/17 21:00 04/15/17 20:59 03/20/17 20:22 0.25 MG Lisinopril (Zestril Tab) 10 mg HS PO 03/16/17 21:00 04/15/17 20:59 03/20/17 20:24 10 MG Gabapentin (Neurontin Cap) 100 mg TID PO 03/17/17 10:15 04/16/17 10:14 03/21/17 09:42 100 MG Pantoprazole Sodium (Protonix Tab) 40 mg DAILY PO 03/18/17 08:00 04/17/17 07:59 03/21/17 09:44 40 MG Enteral Nutritional Formula (Boost Breeze Nutritional Drink) 1 box BID PO 03/17/17 20:00 04/16/17 19:59 Magnesium Oxide (Mag-Ox Tab) 400 mg BID PO 03/18/17 20:00 04/17/17 19:59 03/21/17 09:42 400 MG Loratadine (Claritin Tab) 10 mg QAM PO 03/19/17 08:00 04/18/17 07:59 03/21/17 09:43 10 MG Fluticasone Propionate (Flonase Nasal [place]) 2 sprays HS ROBIN 03/18/17 23:00 04/17/17 22:59 03/20/17 20:21 2 SPRAYS Colchicine (Colchicine Tab) 0.6 mg DAILY PO 03/20/17 08:00 04/19/17 07:59 03/21/17 09:44 0.6 MG Cholestyramine Resin (Questran Powder Light) 4 gm DAILY@0700 PO 03/20/17 07:00 04/19/17 06:59 03/20/17 18:27 4 GM Prednisone (PredniSONE TAB) 20 mg Taper DAILY PO 03/21/17 08:00 03/24/18 07:59 03/21/17 09:43 20 MG Multivitamins/ Minerals (Multivitamin W/ Minerals Tab) 1 tab QAM PO 03/21/17 08:00 04/20/17 07:59 03/21/17 09:42 1 TAB Objective Vital Signs Date Time Temp Pulse Resp B/P Pulse Ox O2 Delivery O2 Flow Rate FiO2 03/21/17 08:00 Room Air 03/21/17 07:29 36.9 71 18 118/53 98 Room Air 03/20/17 23:50 36.9 66 20 112/71 96 Room Air 03/20/17 23:20 Room Air 03/20/17 16:43 36.9 70 18 143/82 97 Room Air 03/20/17 16:00 Room Air Physical Exam General Appearance: no apparent distress Eyes: PERRL ENT: hearing grossly normal Neck: supple Respiratory/Chest: lungs clear, no respiratory distress Cardiovascular: regular rate, rhythm, no gallop, no JVD Abdomen: normal bowel sounds, soft, no organomegaly, no pulsatile mass, + tenderness (generalized with deep palpation) Neurologic/Psych: alert, normal mood/affect, oriented x 3 Skin: normal color Laboratory Results Last 24 Hours Test 03/20/17 11:00 03/20/17 19:58 03/21/17 00:00 03/21/17 05:21 Urine Osmolality 91 mOms/kg 131 mOms/kg Urine Random Sodium 17 mEq/L 22 mEq/L Sodium Level 125 mmol/L 129 mmol/L Potassium Level 4.4 mmol/L 4.1 mmol/L Chloride Level 89 mmol/L 95 mmol/L Carbon Dioxide Level 29 mmol/L 29 mmol/L Anion Gap 7.0 mmol/L 5.0 mmol/L Blood Urea Nitrogen 20 mg/dl 18 mg/dl Creatinine 1.30 mg/dl 1.10 mg/dl Est Creatinine Clear Calc Drug Dose 34.9 ml/min 41.2 ml/min Estimated GFR () 44.6 54.5 Estimated GFR (Non- 38.4 47.0 BUN/Creatinine Ratio 15.6 16.6 Random Glucose 138 mg/dl 79 mg/dl Calcium Level 7.3 mg/dl 7.7 mg/dl White Blood Count 11.26 K/uL Red Blood Count 3.07 M/uL Hemoglobin 8.5 g/dL Hematocrit 25.7 % Mean Corpuscular Volume 83.7 fL Mean Corpuscular Hemoglobin 27.7 pg Mean Corpuscular Hemoglobin Concent 33.1 g/dl RDW Standard Deviation 45.5 fL RDW Coefficient of Variation 15.1 % Platelet Count 307 K/uL Mean Platelet Volume 9.7 fL Magnesium Level 2.4 mg/dl Assessment and Plan Ms. Phoenix is an 81 yr old female with C-diff, though clinically with sepsis which is improving, blood cultures negative thus far. Hb is decreasing but no evidence of GI bleeding. Her main issue today is cecal ileus. 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 - this was held and ID was consulted Continue IV flagyl while admitted and Vanco po QID at 125mg x 2 weeks If no improvement of C.diff symptoms may use 250 mg QID for remaining course Her last episode of c.diff was in 2011 - tapering course not indicated unless still symptomatic at tend of 2 week treatment Appreciate ID opinion on taper If no improvement will discuss dificid and stool transplant KUB 03/19/17 for distention on which was improved on yesterdays film- if recurrs please consider Toxic megacolon and obtain general surgery consultation Hold narcotics Continue full liquid diet IF WBC count increases, abdominal pain recurrs, or ileus recurs consider toxic megacolon. Also given hx of IgG deficiency would consider IV IG if ok with ID/ rheum given her scleroderma. Questran 1 time daily Attg addendum: I interviewed and examined pt, reviewed chart and labs. Pt with persistent diarrhea this morning. She itz full liquids last night, denies abd pain. On exam, she appears comfortable. She has mild abd tenderness on deep palpation. Her abd is non distended. Given her improvement, will cont current management with few minor exceptions - will hold PPI therapy and hold Mag. Will try low dose questran, with the caveat that it may aggravate her gastroparesis sx. Given her propensity towards slow motility and severe disease, I would favor higher dose of Vanco,.
--- NOTE | 2017-03-21 13:51 | Progress Note ---
Subjective Date of Service: March 21, 2017. Subjective Pt evaluation today including: conversation w/ patient, physical exam, chart review, lab review, review of studies, review of inpatient medication list Pt states persistent diarrhea No abd pain, occasional cramps No nausea or fevers No other incidents overnight Pt adamant that she will not undergo any surgery at this time Problem List Medical Problems: (1) Abdominal pain Status: Acute (2) Hypotension Status: Acute (3) Ischemic colitis Status: Acute (4) Rectal bleed Status: Acute Review of Systems Constitutional: No chills, No fever Respiratory: No cough, No shortness of breath, No sputum, No wheezing Cardiac: No chest pain, No orthopnea Abdomen: + diarrhea, No nausea, No pain, No vomiting Musculoskeletal: No joint pain, No muscle pain Female : No dysuria, No urinary frequency Neurologic: + numbness/tingling (lower feet numbness), No paralysis Objective Vital Signs Date Time Temp Pulse Resp B/P Pulse Ox O2 Delivery O2 Flow Rate FiO2 03/21/17 08:00 Room Air 03/21/17 07:29 36.9 71 18 118/53 98 Room Air 03/20/17 23:50 36.9 66 20 112/71 96 Room Air 03/20/17 23:20 Room Air 03/20/17 16:43 36.9 70 18 143/82 97 Room Air 03/20/17 16:00 Room Air Physical Exam General Appearance: WD/WN, no apparent distress Neck: supple, no adenopathy Respiratory/Chest: lungs clear, normal breath sounds Cardiovascular: no edema, no gallop Abdomen: non tender, soft Neurologic/Psychiatric: alert, oriented x 3, + sensory deficit (bilateral lower feet to ankle) Laboratory Results Last 24 Hours Test 03/20/17 19:58 03/21/17 00:00 03/21/17 05:21 Sodium Level 125 mmol/L 129 mmol/L Potassium Level 4.4 mmol/L 4.1 mmol/L Chloride Level 89 mmol/L 95 mmol/L Carbon Dioxide Level 29 mmol/L 29 mmol/L Anion Gap 7.0 mmol/L 5.0 mmol/L Blood Urea Nitrogen 20 mg/dl 18 mg/dl Creatinine 1.30 mg/dl 1.10 mg/dl Est Creatinine Clear Calc Drug Dose 34.9 ml/min 41.2 ml/min Estimated GFR () 44.6 54.5 Estimated GFR (Non- 38.4 47.0 BUN/Creatinine Ratio 15.6 16.6 Random Glucose 138 mg/dl 79 mg/dl Calcium Level 7.3 mg/dl 7.7 mg/dl Urine Osmolality 131 mOms/kg Urine Random Sodium 22 mEq/L White Blood Count 11.26 K/uL Red Blood Count 3.07 M/uL Hemoglobin 8.5 g/dL Hematocrit 25.7 % Mean Corpuscular Volume 83.7 fL Mean Corpuscular Hemoglobin 27.7 pg Mean Corpuscular Hemoglobin Concent 33.1 g/dl RDW Standard Deviation 45.5 fL RDW Coefficient of Variation 15.1 % Platelet Count 307 K/uL Mean Platelet Volume 9.7 fL Magnesium Level 2.4 mg/dl Assessment and Plan Septic shock 2nd to c. diff colitis - shock resolved C. diff colitis - severe - ileus resolved on imaging. stop IV flagyl. cont oral vanco. Consult ID, will need 6 weeks therapy. Pt wanting to check on dificid pricing. Neuropathy bilateral feet starting last night. ?metronidazole which can cause. stopped flagyl. cont gabapentin, morphine not helping. 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 Acute renal failure 2nd to ATN in setting of #1 - resolved. Cr stable. CKD stage 3 - stable and at baseline. Acute/chronic diastolic CHF stable, no exacerbation noted Cont ethacrynic acid and beta kay. Added GUILLERMO - renal status okay Strict I's and O's. Anemia of chronic disease +/- iron deficiency - stop PO iron for now. She is very nauseous with oral meds. Gastroparesis - continue domperidone. GI added Emend today. Appreciate their input Back pain/deconditioning - lidoderm patches prn. PT/OT evals Cramps in legs - being made worse by hypokalemia; iron def can contribute as well. Mirapex didn't seem to help. Add low dose gabapentin. Continued [facility] stay due to: inadequate po fluid intake, inadequate oral pain control, voiding difficulties, ambulation difficulties Discharge planning: uncertain
[2017-03-21 15:44] VITALS: BP 137/70; PULSE 86; TEMP 36.7; O2SAT 96
[2017-03-21] MEDS: VANCOMYCIN HCL 250 MG/5 ML SOLN PO SCH ×2 (16:54→20:04)
--- NOTE | 2017-03-21 19:56 | DIAGNOSTIC IMAGING REPORT ---
KUB CLINICAL HISTORY: Ileus. Clostridium difficile colitis. FINDINGS: An AP, portable, supine abdominal radiograph is compared to study dated 03/19/2017 and correlated with abdominal CT dated 03/12/2017. There is no radiographic evidence of bowel obstruction. Mildly distended and gas-filled loops of small bowel are similar to previous and measure up to 3.8 cm in diameter. There is no evidence of colonic distention. This likely represents ileus as clinically suspected. Cholecystectomy clips are seen in the right upper quadrant. Surgical clips also project over the esophageal hiatus. There is no evidence of intraperitoneal free air on this supine view. There are no abnormal abdominal calcifications. The skeletal structures are osteopenic. There is lumbosacral spondylosis and scoliosis. Postoperative changes noted in the right femur. IMPRESSION: There is no radiographic evidence of bowel obstruction. Mildly distended gas-filled loops of small bowel may represent ileus as clinically suspected. This is unchanged from previous. Dictated: 03/21/2017 7:32 PM Transcribed: 03/21/2017 7:55 PM [email or web address] Electronically signed by: Todd Urias M.D. 03/21/2017 8:03 PM Dictated Date/Time: 03/21/2017 7:32 PM
[2017-03-21] MEDS: FLUTICASONE PROPIONATE NA SPR 16 GM BTL NAE SCH (20:10)
[2017-03-21] MEDS: ATORVASTATIN 20 MG TAB PO SCH (20:11)
[2017-03-21] MEDS: PRAMIPEXOLE DIHYDROCHLORIDE 0.25MG TAB PO SCH (20:12)
[2017-03-21] MEDS: LISINOPRIL 10 MG TAB PO SCH (20:17)
[2017-03-21 23:45] VITALS: BP 134/80; PULSE 76; TEMP 37.2; O2SAT 96
[2017-03-22] MEDS: HYDROCODONE/ACETAMOPHEN 5/325MG TAB PO PRN (03:43)
[2017-03-22 05:43] LABS: HEMATOCRIT 26.2 % (37-47); MEAN CELL VOLUME 85.1 fL (80-100); MEAN CORPUSCULAR HEMOGLOBIN 27.9 pg (25-34); MEAN CORPUSCULAR HGB CONC 32.8 g/dl (32-36); MEAN PLATELET VOLUME 9.3 fL (7.4-10.4); PLATELET COUNT 325 K/uL (130-400); RED BLOOD COUNT 3.08 M/uL (4.2-5.4); WHITE BLOOD COUNT 8.12 K/uL (4.8-10.8)
[2017-03-22 06:19] LABS: BUN/CREATININE RATIO 15.9 (10-20); CALCIUM 8.3 mg/dl (8.5-10.1); CREATININE 0.97 mg/dl (0.60-1.20); POTASSIUM 4.5 mmol/L (3.5-5.1)
[2017-03-22] MEDS: DOMPERIDONE 10 MG PO SCH ×4 (06:19→20:09)
[2017-03-22 06:21] LABS: ALB/GLOB RATIO 0.6 (0.9-2)
[2017-03-22] MEDS: CHOLESTYRAMINE LIGHT 4 GM PKT PO SCH (06:46)
[2017-03-22 07:17] VITALS: BP 149/73; PULSE 74; TEMP 37.2; O2SAT 98
[2017-03-22 08:00] VITALS: O2SAT 98
[2017-03-22] MEDS: BOOST BREEZE NUTRITION DRINK 1 BOX PO SCH ×2 (08:00→20:00)
[2017-03-22] MEDS: VANCOMYCIN HCL 250 MG/5 ML SOLN PO SCH ×4 (08:37→20:07)
[2017-03-22] MEDS: RASPBERRY SYRUP 5 ML UDP PO SCH ×4 (08:37→20:07)
[2017-03-22] MEDS: CEROVITE ADV FORMULA TAB PO SCH (08:38)
[2017-03-22] MEDS: METOPROLOL TARTRATE 25 MG TAB PO SCH (08:38)
[2017-03-22] MEDS: CALCITRIOL 0.25 MCG CAP PO SCH (08:39)
[2017-03-22] MEDS: LORATADINE 10 MG TAB PO SCH (08:39)
[2017-03-22] MEDS: GABAPENTIN 100 MG CAP PO SCH ×3 (08:40→20:10)
[2017-03-22] MEDS: METHIMAZOLE 5 MG TAB PO SCH (08:41)
[2017-03-22] MEDS: LIDODERM (LIDOCAINE) PATCH 5% TD SCH (08:42)
[2017-03-22] MEDS: HEPARIN SOD 5000 UNIT/0.5 ML CARP SQ SCH ×2 (08:44→20:16)
[2017-03-22] MEDS ORDERED: ETHACRYNIC ACID 25 MG TAB PO ONE (09:30)
--- NOTE | 2017-03-22 09:52 | Gastroenterology Progress Note ---
Progress Note Date of Service: March 22, 2017 Subjective Pt evaluation today including: conversation w/ patient, physical exam, chart review, lab review Pt was seen and evaluated this AM. She is still complaining of copious amounts of liquid diarrhea - 10 episodes yesterday. 2 so far this AM. Stool is loose/ liquid and is beginning to turn brown per nursing staff. Abdominal pain is unchanged, sensation of a "warm" stomach, generalized abdominal discomfort as baseline with increasing colicky pain before a BM. + appetite. She was advaced to a full liquid diet and met with undertaker assistant who also suggest five small meals daily that are gastroparesis friendly. She is seen eating ice cream during my exam this AM. Yesterday, PPI and mag were held in case they were contributing to diarrhea. She was encouraged to use Questran once daily as needed. Vancomycin dosing was increased. Neuropathy is unchanged - still unlikely to be from flagyl use. Labs are improving - including kidney function and her outpatient dosing of diuretics were restarted. Despite this, she is very discouraged. KUB 03/22/17: There is no radiographic evidence of bowel obstruction. Mildly distended gas-filled loops of small bowel may represent ileus as clinically suspected. This is unchanged from previous. Review of Systems Constitutional: No chills, No fever Respiratory: No cough, No shortness of breath Cardiac: No chest pain, No edema Abdomen: + diarrhea, + nausea, + pain, No GI bleeding, No constipation, No vomiting Medications Current Inpatient Medications Medications (Trade) Dose Ordered Sig/[place] Route Start Time Stop Time Status Last Admin Dose Admin Calcitriol (Rocaltrol Cap) 0.25 mcg QAM PO 03/12/17 09:00 04/11/17 08:59 03/22/17 08:39 0.25 MCG Methimazole (Methimazole Tab) 2.5 mg QAM PO 03/12/17 09:00 04/11/17 08:59 03/22/17 08:41 2.5 MG Atorvastatin Calcium (Lipitor Tab) 20 mg HS PO 03/13/17 21:00 04/12/17 20:59 03/21/17 20:11 20 MG Morphine Sulfate (MoRPHine SULFATE INJ) 2 mg Q4H PRN IV 03/12/17 07:15 03/26/17 07:14 03/17/17 05:50 2 MG Acetaminophen (Tylenol Tab) 650 mg Q4H PRN PO 03/12/17 07:15 04/11/17 07:14 Ondansetron HCl (Zofran Inj) 4 mg Q6H PRN IV 03/12/17 07:15 04/11/17 07:14 03/21/17 08:46 4 MG Raspberry (Raspberry Syrup 5ml Cup) 5 ml QID PO 03/12/17 09:00 03/31/17 16:59 03/22/17 08:37 5 ML Heparin Sodium (Porcine) (Heparin Sq 5000 Unit/0.5ml) 5,000 unit Q12 SQ 03/12/17 21:00 04/11/17 20:59 03/22/17 08:44 5,000 UNIT Heparin Sodium (Porcine) (Heparin 10 Unit/ ml 5 ml Flush) 5 ml PRN PRN FLUSH 03/13/17 01:30 04/12/17 01:29 03/22/17 05:24 10 ML Domperidone Maleate (Domperidone) 10 mg ACHS PO 03/14/17 16:15 04/13/17 16:14 03/22/17 06:19 10 MG Folic Acid (Folvite Tab) 1 mg QAM PO 03/14/17 16:15 04/13/17 16:14 03/22/17 08:39 1 MG Ethacrynic Acid (Edecrin Tab) 75 mg QAM PO 03/15/17 12:00 04/14/17 11:59 Future hold 03/19/17 08:59 75 MG Metoprolol Tartrate (Lopressor Tab) 12.5 mg QAM PO 03/15/17 09:00 04/14/17 08:59 03/22/17 08:38 12.5 MG Tramadol HCl (Ultram Tab) 50 mg Q6H PRN PO 03/15/17 12:00 04/14/17 11:59 03/18/17 03:39 50 MG Lidocaine (Lidoderm Patch 5%) 2 patch QAM TD 03/15/17 14:30 04/14/17 14:29 03/22/17 08:42 2 PATCH Acetaminophen/ Hydrocodone Bitart ([place] 5/325 Tab) 0.5 tab Q6H PRN PO 03/15/17 13:30 03/29/17 13:29 03/22/17 03:43 0.5 TAB Miscellaneous (Remove Lidoderm Patch) 2 ea DAILY@21 N/A 03/15/17 21:00 04/14/17 20:59 03/18/17 21:11 2 EA Pramipexole Dihydrochloride (miraPEX TAB) 0.25 mg HS PO 03/16/17 21:00 04/15/17 20:59 03/21/17 20:12 0.25 MG Lisinopril (Zestril Tab) 10 mg HS PO 03/16/17 21:00 04/15/17 20:59 03/21/17 20:17 10 MG Pantoprazole Sodium (Protonix Tab) 40 mg DAILY PO 03/18/17 08:00 04/17/17 07:59 Future Hold 03/21/17 09:44 40 MG Enteral Nutritional Formula (Boost Breeze Nutritional Drink) 1 box BID PO 03/17/17 20:00 04/16/17 19:59 Loratadine (Claritin Tab) 10 mg QAM PO 03/19/17 08:00 04/18/17 07:59 03/22/17 08:39 10 MG Fluticasone Propionate (Flonase Nasal Jermyn) 2 sprays HS ROBIN 03/18/17 23:00 04/17/17 22:59 03/21/17 20:10 2 SPRAYS Colchicine (Colchicine Tab) 0.6 mg DAILY PO 03/20/17 08:00 04/19/17 07:59 Future Hold 03/21/17 09:44 0.6 MG Cholestyramine Resin (Questran Powder Light) 4 gm DAILY@0700 PO 03/20/17 07:00 04/19/17 06:59 03/22/17 06:46 4 GM Prednisone (PredniSONE TAB) 10 mg Taper DAILY PO 03/21/17 08:00 03/24/18 07:59 03/22/17 08:38 10 MG Multivitamins/ Minerals (Multivitamin W/ Minerals Tab) 1 tab QAM PO 03/21/17 08:00 04/20/17 07:59 03/22/17 08:38 1 TAB Vancomycin HCl (Vancomycin Oral Soln) 250 mg QID PO 03/21/17 17:00 03/31/17 16:59 03/22/17 08:37 250 MG Gabapentin (Neurontin Cap) 200 mg TID PO 03/22/17 14:00 04/21/17 13:59 Objective Vital Signs Date Time Temp Pulse Resp B/P Pulse Ox O2 Delivery O2 Flow Rate FiO2 03/22/17 07:17 37.2 74 18 149/73 98 Room Air 03/21/17 23:45 37.2 76 20 134/80 96 Room Air 03/21/17 23:33 Room Air 03/21/17 16:00 Room Air 03/21/17 15:44 36.7 86 18 137/70 96 Room Air Physical Exam General Appearance: no apparent distress (she is sittig upright in bed eating ice cream) Eyes: PERRL ENT: hearing grossly normal Neck: supple Respiratory/Chest: lungs clear, no respiratory distress Cardiovascular: regular rate, rhythm Abdomen: normal bowel sounds, soft, no organomegaly, no pulsatile mass, + tenderness (gnerealized) Neurologic/Psych: alert, normal mood/affect, oriented x 3 Skin: normal color, no jaundice, warm/dry, no rash Laboratory Results Last 24 Hours Test 03/22/17 05:25 White Blood Count 8.12 K/uL Red Blood Count 3.08 M/uL Hemoglobin 8.6 g/dL Hematocrit 26.2 % Mean Corpuscular Volume 85.1 fL Mean Corpuscular Hemoglobin 27.9 pg Mean Corpuscular Hemoglobin Concent 32.8 g/dl RDW Standard Deviation 47.9 fL RDW Coefficient of Variation 15.6 % Platelet Count 325 K/uL Mean Platelet Volume 9.3 fL Sodium Level 134 mmol/L Potassium Level 4.5 mmol/L Chloride Level 100 mmol/L Carbon Dioxide Level 29 mmol/L Anion Gap 5.0 mmol/L Blood Urea Nitrogen 15 mg/dl Creatinine 0.97 mg/dl Est Creatinine Clear Calc Drug Dose 46.7 ml/min Estimated GFR () 63.5 Estimated GFR (Non- 54.8 BUN/Creatinine Ratio 15.9 Random Glucose 74 mg/dl Calcium Level 8.3 mg/dl Total Bilirubin 0.4 mg/dl Aspartate Amino Transf (AST/SGOT) 22 U/L Alanine Aminotransferase (ALT/SGPT) 20 U/L Alkaline Phosphatase 83 U/L Total Protein 5.4 gm/dl Albumin 2.1 gm/dl Globulin 3.3 gm/dl Albumin/Globulin Ratio 0.6 Assessment and Plan Ms. Phoenix is an 81 yr old female with C-diff, though clinically with sepsis which is improving, blood cultures negative thus far. Hb is decreasing but no evidence of GI bleeding. Her main issue today is cecal ileus. 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 - this was held and ID was consulted. Vanco dose was increased on 03/21/17. Continue Vanco po QID at 250 mg x 2 weeks Will plan for a tapering course of vanco as suggested by ID If no improvement will discuss dificid and stool transplant KUB with persisting distention and ileus - primary team please consider general surgery consultation - still clinical concern for toxic megacolon Hold narcotics Continue full liquid diet Hold PPI Hold mag Recommended holding domperidone as can exacerbate diarrhea, but patient refused that Questran 1 time daily Simethicone as needed for gas IF WBC count increases, abdominal pain worsens, or ileus recurs consider toxic megacolon. Also given hx of IgG deficiency would consider IV IG if ok with ID/ rheum given her scleroderma. ATTESTATION: I have performed a history and physical examination of this patient and reviewed the electronic record. Specifically, although diarrhea continues, on physical examination there is no abdominal distention or tenderness. I have discussed the case with RODRICK Scott. The above note reflects my findings, conclusions, and recommendations. Kevin Martin MD
[2017-03-22] MEDS ORDERED: NURSING VERBAL MED ORDER ONE ×2 (10:15)
--- NOTE | 2017-03-22 11:19 | Progress Note ---
Subjective Date of Service: March 22, 2017. Subjective Pt evaluation today including: conversation w/ patient, physical exam, chart review, lab review, review of studies, review of inpatient medication list eports worsening numbness in bilateral feet 12 episodes fo diarrhea yesterday no fevers or chills No N/V Problem List Medical Problems: (1) Abdominal pain Status: Acute (2) Hypotension Status: Acute (3) Ischemic colitis Status: Acute (4) Rectal bleed Status: Acute Review of Systems Constitutional: No chills, No fever Respiratory: No cough, No dyspnea on exertion, No shortness of breath, No sputum, No wheezing Cardiac: No chest pain, No orthopnea Abdomen: + diarrhea, No nausea, No pain, No vomiting Musculoskeletal: + joint pain, No muscle pain Neurologic: + numbness/tingling, No memory loss Objective Vital Signs Date Time Temp Pulse Resp B/P Pulse Ox O2 Delivery O2 Flow Rate FiO2 03/22/17 07:17 37.2 74 18 149/73 98 Room Air 03/21/17 23:45 37.2 76 20 134/80 96 Room Air 03/21/17 23:33 Room Air 03/21/17 16:00 Room Air 03/21/17 15:44 36.7 86 18 137/70 96 Room Air Physical Exam General Appearance: WD/WN, + mild distress Neck: supple, no adenopathy Respiratory/Chest: lungs clear, normal breath sounds Cardiovascular: no edema, no gallop Abdomen: non tender, soft Neurologic/Psychiatric: alert, + sensory deficit (bilateral feet), + depressed affect Laboratory Results Last 24 Hours Test 03/22/17 05:25 White Blood Count 8.12 K/uL Red Blood Count 3.08 M/uL Hemoglobin 8.6 g/dL Hematocrit 26.2 % Mean Corpuscular Volume 85.1 fL Mean Corpuscular Hemoglobin 27.9 pg Mean Corpuscular Hemoglobin Concent 32.8 g/dl RDW Standard Deviation 47.9 fL RDW Coefficient of Variation 15.6 % Platelet Count 325 K/uL Mean Platelet Volume 9.3 fL Sodium Level 134 mmol/L Potassium Level 4.5 mmol/L Chloride Level 100 mmol/L Carbon Dioxide Level 29 mmol/L Anion Gap 5.0 mmol/L Blood Urea Nitrogen 15 mg/dl Creatinine 0.97 mg/dl Est Creatinine Clear Calc Drug Dose 46.7 ml/min Estimated GFR () 63.5 Estimated GFR (Non- 54.8 BUN/Creatinine Ratio 15.9 Random Glucose 74 mg/dl Calcium Level 8.3 mg/dl Total Bilirubin 0.4 mg/dl Aspartate Amino Transf (AST/SGOT) 22 U/L Alanine Aminotransferase (ALT/SGPT) 20 U/L Alkaline Phosphatase 83 U/L Total Protein 5.4 gm/dl Albumin 2.1 gm/dl Globulin 3.3 gm/dl Albumin/Globulin Ratio 0.6 Assessment and Plan Septic shock 2nd to c. diff colitis - shock resolved C. diff colitis - severe - ileus resolved on imaging. stop IV flagyl. Consult ID and GI. Dificid not recommended. Continue Vanco po QID at 250 mg x 2 weeks. If no improvement will discuss dificid and stool transplant Pt refusing general surgery consultation at this time Neuropathy bilateral feet starting last night. ?metronidazole which can cause. stopped flagyl. Increased gabapentin, morphine not helping. 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 Acute renal failure 2nd to ATN in setting of #1 - resolved. Cr stable. CKD stage 3 - stable and at baseline. Acute/chronic diastolic CHF stable, no exacerbation noted Cont ethacrynic acid and beta kay. Added GUILLERMO - renal status okay Strict I's and O's. Anemia of chronic disease +/- iron deficiency - stop PO iron for now. She is very nauseous with oral meds. Gastroparesis - continue domperidone. GI added Emend today. Appreciate their input Back pain/deconditioning - lidoderm patches prn. PT/OT evals Cramps in legs - being made worse by hypokalemia; iron def can contribute as well. Mirapex didn't seem to help. Add low dose gabapentin. Continued [facility] stay due to: inadequate po fluid intake, inadequate oral pain control, voiding difficulties, ambulation difficulties Discharge planning: uncertain
--- NOTE | 2017-03-22 11:33 | DIAGNOSTIC IMAGING REPORT ---
KUB CLINICAL HISTORY: Ileus. Clostridium difficile colitis. FINDINGS: 2 AP, portable, supine abdominal radiographs are compared to study dated 03/21/2017 and correlated with abdominal CT dated 03/12/2017. There is a nonobstructed abdominal bowel gas pattern. There is no evidence of colonic distention. This likely represents ileus as clinically suspected. Cholecystectomy clips are seen in the right upper quadrant. Surgical clips also project over the esophageal hiatus. There is no evidence of intraperitoneal free air on this supine view. There are no abnormal abdominal calcifications. The skeletal structures are osteopenic. There is lumbosacral spondylosis and scoliosis. Postoperative change is noted in the right femur. IMPRESSION: Nonobstructed abdominal bowel gas pattern. Electronically signed by: Todd Urias M.D. 03/22/2017 11:31 AM Dictated Date/Time: 03/22/2017 11:30 AM
[2017-03-22] MEDS ORDERED: SIMETHICONE 80 MG CHEW PO PRN (12:45)
[2017-03-22 15:42] VITALS: BP 122/61; PULSE 75; TEMP 36.9; O2SAT 99
[2017-03-22] MEDS: FLUTICASONE PROPIONATE NA SPR 16 GM BTL NAE SCH (20:09)
[2017-03-22] MEDS: LISINOPRIL 10 MG TAB PO SCH (20:12)
[2017-03-22] MEDS: ATORVASTATIN 20 MG TAB PO SCH (20:12)
[2017-03-22] MEDS: PRAMIPEXOLE DIHYDROCHLORIDE 0.25MG TAB PO SCH (20:13)
[2017-03-23] MEDS: HYDROCODONE/ACETAMOPHEN 5/325MG TAB PO PRN ×2 (05:04→19:49)
[2017-03-23] MEDS: DOMPERIDONE 10 MG PO SCH ×4 (06:12→22:09)
[2017-03-23] MEDS: CHOLESTYRAMINE LIGHT 4 GM PKT PO SCH (06:14)
[2017-03-23 07:37] VITALS: BP 144/69; PULSE 88; TEMP 37.2; O2SAT 96
[2017-03-23 08:00] VITALS: O2SAT 96
[2017-03-23] MEDS: BOOST BREEZE NUTRITION DRINK 1 BOX PO SCH ×2 (08:00→20:00)
[2017-03-23] MEDS: LIDODERM (LIDOCAINE) PATCH 5% TD SCH (08:00)
[2017-03-23] MEDS ORDERED: ETHACRYNIC ACID 25 MG TAB PO SCH (08:00)
[2017-03-23 08:24] LABS: HEMATOCRIT 31.2 % (37-47); MEAN CORPUSCULAR HEMOGLOBIN 27.2 pg (25-34); MEAN CORPUSCULAR HGB CONC 32.1 g/dl (32-36); MEAN PLATELET VOLUME 9.4 fL (7.4-10.4); PLATELET COUNT 390 K/uL (130-400); RED BLOOD COUNT 3.67 M/uL (4.2-5.4); WHITE BLOOD COUNT 10.87 K/uL (4.8-10.8)
[2017-03-23] MEDS: GABAPENTIN 100 MG CAP PO SCH ×2 (08:42→20:49)
[2017-03-23] MEDS: CALCITRIOL 0.25 MCG CAP PO SCH (08:42)
[2017-03-23] MEDS: CEROVITE ADV FORMULA TAB PO SCH (08:45)
[2017-03-23] MEDS: METHIMAZOLE 5 MG TAB PO SCH (08:45)
[2017-03-23] MEDS: ETHACRYNIC ACID 25 MG TAB PO SCH (08:46)
[2017-03-23] MEDS: METOPROLOL TARTRATE 25 MG TAB PO SCH (08:46)
[2017-03-23] MEDS: LORATADINE 10 MG TAB PO SCH (08:46)
[2017-03-23] MEDS: HEPARIN SOD 5000 UNIT/0.5 ML CARP SQ SCH ×2 (08:55→20:54)
[2017-03-23] MEDS: RASPBERRY SYRUP 5 ML UDP PO SCH ×4 (08:55→20:49)
[2017-03-23] MEDS: VANCOMYCIN HCL 250 MG/5 ML SOLN PO SCH ×4 (08:55→20:49)
[2017-03-23 08:58] LABS: BUN/CREATININE RATIO 13.8 (10-20); CALCIUM 8.6 mg/dl (8.5-10.1); CREATININE 1.1 mg/dl (0.60-1.20); MAGNESIUM 1.9 mg/dl (1.8-2.4); POTASSIUM 4.1 mmol/L (3.5-5.1)
[2017-03-23 09:21] LABS: COMPLETE YES; EOSINOPHIL % 0.9 %; LYMPH ABS # 3.01 K/uL (1.2-3.4); LYMPHOCYTE % 27.7 %; META ABS # 0.49 K/uL (0-0); METAMYELOCYTE % 4.5 %; MYELOCYTE % 3.6 %; NEUTROPHILS % 53.5 %; POLYCHROMASIA 1+; TOXIC GRANULATION 2+
[2017-03-23 09:40] LABS: URINE APPEARANCE CLOUDY (CLEAR); URINE BILIRUBIN NEG (NEG); URINE COLOR YELLOW; URINE NITRITE POS (NEG); UROBILINOGEN NEG (NEG)
[2017-03-23 09:42] LABS: MANUAL MICROSCOPIC REQUIRED? NO; REVIEW REQ? NO
--- NOTE | 2017-03-23 09:48 | Gastroenterology Progress Note ---
Progress Note Date of Service: March 23, 2017 Subjective Pt evaluation today including: conversation w/ patient, physical exam, chart review, lab review Pt was seen and evaluated this AM. She had one small BM this morning this AM per the nursing staff. This was not foul smelling. This was pasty and appeared to be bulking. BMs yesterday towards the end of the day were semi formed. Abdominal pain and cramping improving. She is very upset about her nutrition intake - she is request more food and increase protein. Tells me neuropathy, weakness and fatigue is the worst it has ever been today. Review of Systems Constitutional: + weakness ("I cant even lift my arms"), No chills, No fever Respiratory: No cough, No shortness of breath Cardiac: No chest pain, No edema Abdomen: + diarrhea, + nausea, No GI bleeding, No constipation, No pain, No vomiting Medications Current Inpatient Medications Medications (Trade) Dose Ordered Sig/[place] Route Start Time Stop Time Status Last Admin Dose Admin Calcitriol (Rocaltrol Cap) 0.25 mcg QAM PO 03/12/17 09:00 04/11/17 08:59 03/23/17 08:42 0.25 MCG Methimazole (Methimazole Tab) 2.5 mg QAM PO 03/12/17 09:00 04/11/17 08:59 03/23/17 08:45 2.5 MG Atorvastatin Calcium (Lipitor Tab) 20 mg HS PO 03/13/17 21:00 04/12/17 20:59 03/22/17 20:12 20 MG Morphine Sulfate (MoRPHine SULFATE INJ) 2 mg Q4H PRN IV 03/12/17 07:15 03/26/17 07:14 03/17/17 05:50 2 MG Acetaminophen (Tylenol Tab) 650 mg Q4H PRN PO 03/12/17 07:15 04/11/17 07:14 Ondansetron HCl (Zofran Inj) 4 mg Q6H PRN IV 03/12/17 07:15 04/11/17 07:14 03/21/17 08:46 4 MG Raspberry (Raspberry Syrup 5ml Cup) 5 ml QID PO 03/12/17 09:00 03/31/17 16:59 03/23/17 08:55 5 ML Heparin Sodium (Porcine) (Heparin Sq 5000 Unit/0.5ml) 5,000 unit Q12 SQ 03/12/17 21:00 04/11/17 20:59 03/23/17 08:55 5,000 UNIT Heparin Sodium (Porcine) (Heparin 10 Unit/ ml 5 ml Flush) 5 ml PRN PRN FLUSH 03/13/17 01:30 04/12/17 01:29 03/23/17 08:05 10 ML Domperidone Maleate (Domperidone) 10 mg ACHS PO 03/14/17 16:15 04/13/17 16:14 03/23/17 06:12 10 MG Folic Acid (Folvite Tab) 1 mg QAM PO 03/14/17 16:15 04/13/17 16:14 03/23/17 08:46 1 MG Ethacrynic Acid (Edecrin Tab) 75 mg QAM PO 03/15/17 12:00 04/14/17 11:59 Future hold 03/23/17 08:46 75 MG Tramadol HCl (Ultram Tab) 50 mg Q6H PRN PO 03/15/17 12:00 04/14/17 11:59 03/18/17 03:39 50 MG Lidocaine (Lidoderm Patch 5%) 2 patch QAM TD 03/15/17 14:30 04/14/17 14:29 03/22/17 08:42 2 PATCH Acetaminophen/ Hydrocodone Bitart ([place] 5/325 Tab) 0.5 tab Q6H PRN PO 03/15/17 13:30 03/29/17 13:29 03/23/17 05:04 0.5 TAB Miscellaneous (Remove Lidoderm Patch) 2 ea DAILY@21 N/A 03/15/17 21:00 04/14/17 20:59 03/18/17 21:11 2 EA Pramipexole Dihydrochloride (miraPEX TAB) 0.25 mg HS PO 03/16/17 21:00 04/15/17 20:59 03/22/17 20:13 0.25 MG Lisinopril (Zestril Tab) 10 mg HS PO 03/16/17 21:00 04/15/17 20:59 03/22/17 20:12 10 MG Pantoprazole Sodium (Protonix Tab) 40 mg DAILY PO 03/18/17 08:00 04/17/17 07:59 Future Hold 03/21/17 09:44 40 MG Enteral Nutritional Formula (Boost Breeze Nutritional Drink) 1 box BID PO 03/17/17 20:00 04/16/17 19:59 Loratadine (Claritin Tab) 10 mg QAM PO 03/19/17 08:00 04/18/17 07:59 03/23/17 08:46 10 MG Fluticasone Propionate (Flonase Nasal [place]) 2 sprays HS ROBIN 03/18/17 23:00 04/17/17 22:59 03/22/17 20:09 2 SPRAYS Colchicine (Colchicine Tab) 0.6 mg DAILY PO 03/20/17 08:00 04/19/17 07:59 Future Hold 03/21/17 09:44 0.6 MG Cholestyramine Resin (Questran Powder Light) 4 gm DAILY@0700 PO 03/20/17 07:00 04/19/17 06:59 03/22/17 06:46 4 GM Multivitamins/ Minerals (Multivitamin W/ Minerals Tab) 1 tab QAM PO 03/21/17 08:00 04/20/17 07:59 03/23/17 08:45 1 TAB Vancomycin HCl (Vancomycin Oral Soln) 250 mg QID PO 03/21/17 17:00 03/31/17 16:59 03/23/17 08:55 250 MG Metoprolol Tartrate (Lopressor Tab) 25 mg QAM PO 03/23/17 08:00 04/22/17 07:59 03/23/17 08:46 25 MG Prednisone (PredniSONE TAB) 5 mg DAILY PO 03/23/17 08:00 04/22/17 07:59 03/23/17 08:45 5 MG Simethicone (Mylicon Chew Tab) 80 mg Q6H PRN PO 03/22/17 12:45 04/21/17 12:44 03/22/17 14:41 80 MG Gabapentin (Neurontin Cap) 100 mg BID PO 03/23/17 20:00 04/22/17 19:59 Gabapentin (Neurontin) 150 mg DAILY@1400 PO 03/23/17 14:00 04/22/17 13:59 Objective Vital Signs Date Time Temp Pulse Resp B/P Pulse Ox O2 Delivery O2 Flow Rate FiO2 03/23/17 07:37 37.2 88 18 144/69 96 Room Air 03/23/17 00:00 Room Air 03/22/17 16:00 Room Air 03/22/17 15:42 36.9 75 18 122/61 99 Room Air Physical Exam General Appearance: no apparent distress Eyes: PERRL ENT: hearing grossly normal Neck: supple Respiratory/Chest: lungs clear, + decreased breath sounds (at bases) Cardiovascular: regular rate, rhythm Abdomen: normal bowel sounds, non tender, soft, no organomegaly, no pulsatile mass Neurologic/Psych: alert, normal mood/affect, oriented x 3 Skin: normal color Laboratory Results Last 24 Hours Test 03/23/17 08:09 03/23/17 09:25 White Blood Count 10.87 K/uL Red Blood Count 3.67 M/uL Hemoglobin 10.0 g/dL Hematocrit 31.2 % Mean Corpuscular Volume 85.0 fL Mean Corpuscular Hemoglobin 27.2 pg Mean Corpuscular Hemoglobin Concent 32.1 g/dl Platelet Count 390 K/uL Mean Platelet Volume 9.4 fL RDW Standard Deviation 48.3 fL RDW Coefficient of Variation 15.8 % Neutrophils % (Manual) 53.5 % Lymphocytes % (Manual) 27.7 % Monocytes % (Manual) 9.8 % Eosinophils % (Manual) 0.9 % Metamyelocytes % 4.5 % Myelocytes % 3.6 % Neutrophils # (Manual) 5.82 K/uL Total Absolute Neutrophils 5.82 K/uL Lymphocytes # (Manual) 3.01 K/uL Total Absolute Lymphocytes 3.01 K/uL Monocytes # (Manual) 1.07 K/uL Eosinophils # (Manual) 0.10 K/uL Metamyelocytes # 0.49 K/uL Myelocytes # 0.39 K/uL Toxic Granulation 2+ Polychromasia 1+ Sodium Level 130 mmol/L Potassium Level 4.1 mmol/L Chloride Level 97 mmol/L Carbon Dioxide Level 27 mmol/L Anion Gap 6.0 mmol/L Blood Urea Nitrogen 15 mg/dl Creatinine 1.10 mg/dl Est Creatinine Clear Calc Drug Dose 41.2 ml/min Estimated GFR () 54.5 Estimated GFR (Non- 47.0 BUN/Creatinine Ratio 13.8 Random Glucose 77 mg/dl Calcium Level 8.6 mg/dl Magnesium Level 1.9 mg/dl Triglycerides Level 189 mg/dl Cholesterol Level 101 mg/dl LDL Cholesterol Direct 52 mg/dl HDL Cholesterol 36 mg/dl Vitamin B12 Level 1746 pg/mL Urine Color YELLOW Urine Appearance CLOUDY Urine pH 6.0 Urine Specific [place] 1.010 Urine Protein NEG Urine Glucose (UA) NEG Urine Ketones NEG Urine Occult Blood TRACE Urine Nitrite POS Urine Bilirubin NEG Urine Urobilinogen NEG Urine Leukocyte Esterase LARGE Urine WBC (Auto) >30 /hpf Urine RBC (Auto) 0-4 /hpf Urine Hyaline Casts (Auto) 1-5 /lpf Urine Epithelial Cells (Auto) 10-20 /lpf Urine Bacteria (Auto) 4+ Assessment and Plan Ms. Phoenix is an 81 yr old female with C-diff, though clinically with sepsis which is improving, blood cultures negative thus far. Hb is decreasing but no evidence of GI bleeding. Her main issue today is cecal ileus. 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 - this was held and ID was consulted. Vanco dose was increased on 03/21/17. Continue Vanco po QID at 250 mg x 2 weeks Will plan for a tapering course of vanco as suggested by ID If no improvement will discuss dificid and stool transplant KUB with persisting distention and ileus - primary team please consider general surgery consultation - still clinical concern for toxic megacolon Hold narcotics Continue full liquid diet Hold PPI Hold mag Recommended holding domperidone as can exacerbate diarrhea, but patient refused that Questran 1 time daily Simethicone as needed for gas Avoid dairy ATTESTATION: I have performed a history and physical examination of this patient and reviewed the electronic record. Specifically, on history patient reports profound weakness this morning, on physical examination abdomen is soft without tenderness. I have discussed the case with RODRICK Scott. The above note reflects my findings, conclusions, and recommendations. Kevin Martin MD If WBC count increases, abdominal pain worsens, or ileus recurs consider toxic megacolon. Surgical evaluation would be warranted - she is agreeable to a consultation, not agreeable to surgery.
[2017-03-23 10:30] VITALS: TEMP 36.9
--- NOTE | 2017-03-23 11:08 | Progress Note ---
Subjective Date of Service: March 23, 2017. Subjective Pt evaluation today including: conversation w/ patient, physical exam, chart review, lab review, review of studies, review of inpatient medication list Reports feeling more weak today Was also feeling sleepy yesterday during the day No other acute incidents overnight Problem List Medical Problems: (1) Abdominal pain Status: Acute (2) Hypotension Status: Acute (3) Ischemic colitis Status: Acute (4) Rectal bleed Status: Acute Review of Systems Constitutional: + fatigue, + weakness, No chills, No fever Respiratory: No cough, No shortness of breath, No sputum, No wheezing Cardiac: No chest pain, No orthopnea Abdomen: + diarrhea, No nausea, No pain, No vomiting Musculoskeletal: + muscle pain, No joint pain Female : No dysuria, No urinary frequency Objective Vital Signs Date Time Temp Pulse Resp B/P Pulse Ox O2 Delivery O2 Flow Rate FiO2 03/23/17 08:00 96 Room Air 03/23/17 07:37 37.2 88 18 144/69 96 Room Air 03/23/17 00:00 Room Air 03/22/17 16:00 Room Air 03/22/17 15:42 36.9 75 18 122/61 99 Room Air Physical Exam General Appearance: WD/WN, + mild distress Neck: supple, no adenopathy Respiratory/Chest: lungs clear, + decreased breath sounds Cardiovascular: no edema, no gallop Abdomen: non tender, soft Neurologic/Psychiatric: alert, + depressed affect Laboratory Results Last 24 Hours Test 03/23/17 08:09 03/23/17 09:25 White Blood Count 10.87 K/uL Red Blood Count 3.67 M/uL Hemoglobin 10.0 g/dL Hematocrit 31.2 % Mean Corpuscular Volume 85.0 fL Mean Corpuscular Hemoglobin 27.2 pg Mean Corpuscular Hemoglobin Concent 32.1 g/dl Platelet Count 390 K/uL Mean Platelet Volume 9.4 fL RDW Standard Deviation 48.3 fL RDW Coefficient of Variation 15.8 % Neutrophils % (Manual) 53.5 % Lymphocytes % (Manual) 27.7 % Monocytes % (Manual) 9.8 % Eosinophils % (Manual) 0.9 % Metamyelocytes % 4.5 % Myelocytes % 3.6 % Neutrophils # (Manual) 5.82 K/uL Total Absolute Neutrophils 5.82 K/uL Lymphocytes # (Manual) 3.01 K/uL Total Absolute Lymphocytes 3.01 K/uL Monocytes # (Manual) 1.07 K/uL Eosinophils # (Manual) 0.10 K/uL Metamyelocytes # 0.49 K/uL Myelocytes # 0.39 K/uL Toxic Granulation 2+ Polychromasia 1+ Sodium Level 130 mmol/L Potassium Level 4.1 mmol/L Chloride Level 97 mmol/L Carbon Dioxide Level 27 mmol/L Anion Gap 6.0 mmol/L Blood Urea Nitrogen 15 mg/dl Creatinine 1.10 mg/dl Est Creatinine Clear Calc Drug Dose 41.2 ml/min Estimated GFR () 54.5 Estimated GFR (Non- 47.0 BUN/Creatinine Ratio 13.8 Random Glucose 77 mg/dl Calcium Level 8.6 mg/dl Magnesium Level 1.9 mg/dl Triglycerides Level 189 mg/dl Cholesterol Level 101 mg/dl LDL Cholesterol Direct 52 mg/dl HDL Cholesterol 36 mg/dl Vitamin B12 Level 1746 pg/mL Urine Color YELLOW Urine Appearance CLOUDY Urine pH 6.0 Urine Specific [place] 1.010 Urine Protein NEG Urine Glucose (UA) NEG Urine Ketones NEG Urine Occult Blood TRACE Urine Nitrite POS Urine Bilirubin NEG Urine Urobilinogen NEG Urine Leukocyte Esterase LARGE Urine WBC (Auto) >30 /hpf Urine RBC (Auto) 0-4 /hpf Urine Hyaline Casts (Auto) 1-5 /lpf Urine Epithelial Cells (Auto) 10-20 /lpf Urine Bacteria (Auto) 4+ Assessment and Plan Septic shock 2nd to c. diff colitis - shock resolved C. diff colitis - severe - ileus resolved on imaging. stop IV flagyl. Consult ID and GI. Dificid not recommended. Continue Vanco po QID at 250 mg x 2 weeks. If no improvement will discuss dificid and stool transplant Pt refusing general surgery consultation at this time Generalized weakness likely secondary to deconditioning, check vit D, might also be secondary to neurontin increase Neuropathy bilateral feet starting last night. ?metronidazole which can cause. stopped flagyl. Increased gabapentin, morphine not helping. 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 Acute renal failure 2nd to ATN in setting of #1 - resolved. Cr stable. CKD stage 3 - stable and at baseline. Acute/chronic diastolic CHF stable, no exacerbation noted Cont ethacrynic acid and beta kay. Added GUILLERMO - renal status okay Strict I's and O's. Anemia of chronic disease +/- iron deficiency - stop PO iron for now. She is very nauseous with oral meds. Gastroparesis - continue domperidone. GI added Emend today. Appreciate their input Back pain/deconditioning - lidoderm patches prn. PT/OT evals Cramps in legs - being made worse by hypokalemia; iron def can contribute as well. Mirapex didn't seem to help. Add low dose gabapentin. Continued [facility] stay due to: inadequate po fluid intake, inadequate oral pain control, voiding difficulties, ambulation difficulties Discharge planning: uncertain
[2017-03-23] MEDS ORDERED: MAGIC MOUTHWASH PO PRN (11:30)
[2017-03-23] MEDS ORDERED: DEXAMETHASONE CONC SOLN 3.75 MG, NYSTATIN SUSP 30 ML, DiphenhydrAMINE HCL SYRUP 300 MG,... PO PRN ×5 (11:45)
--- NOTE | 2017-03-23 13:03 | Medical Consult ---
Consultation Date of Consultation: March 23, 2017. Attending Physician: Dimitry Roy D.O. History of Present Illness 81 y/o female with h/o C. diff treated several years ago with Dificid now brought to ED 12 days ago for abdominal pain and lethargy and treated for sepsis. She has been on po Vanco and increased two days ago from 125 to 250 mg qid. Today her abdomen feels much improved, basically pain free. She has had 4 BM's which are more soft than the liquid she had yesterday (11x). Her main concern is lack of nutrition over the past two weeks and today she feels too weak to feed herself much. She has been tolerating full liquids and prior to admission a regular diet although she does have difficulty with gastroparesis and constipation/inertia. Past Medical/Surgical History Medical & Surgical History: (1) Appendectomy (2) Benign hypertension (3) C DIFF POA (4) Cholecystectomy (5) Chronic congestive heart failure (6) Colitis (7) Colonoscopy (8) Depression (9) dextroscoliosis (10) E COLI UTI POA (11) Gastroesophageal reflux disease (12) Hyperlipidemia (13) Hysterectomy (14) orthopedic surgery (15) Osteoporosis (16) PERSONAL HISTORY OF PEPTIC ULCER DISEASE, partial gastrectomy (17) Pyelonephritis (18) renal disease (19) Sepsis (20) Vertigo Family History Cancer Gallbladder disease Heart disease Hypertension Social History Smoking Status: Former Smoker Drug Use: none Marital Status: Housing Status: lives with family Occupation Status: retired Allergies Coded Allergies: Cefuroxime (Unverified Allergy, Unknown, INEFFECTIVE, 03/12/17) Ciprofloxacin (Unverified Allergy, Unknown, INEFFECTIVE, 03/12/17) Erythromycin (Verified Allergy, Unknown, SEVERE VOMITING, 03/12/17) Furosemide (Verified Allergy, Unknown, HIVES, SULFA ALLERGY TO LOOP DIURETICS, 03/12/17) Hydrochlorothiazide (Verified Allergy, Unknown, HIVES, 03/12/17) Levofloxacin (Unverified Allergy, Unknown, INEFFECTIVE, 03/12/17) Metoclopramide (Verified Allergy, Unknown, anxiety attacks, 03/12/17) Sulfa Antibiotics (Unverified Allergy, Unknown, HIVES AND ANAPHYLAXIS, 03/12) Meperidine (Verified Adverse Reaction, Unknown, INEFFECTIVE FOR PT, 03/12/17 ) INAFFECTIVE FOR PATIENT Current Inpatient Medications Current Inpatient Medications Medications (Trade) Dose Ordered Sig/[place] Route Start Time Stop Time Status Last Admin Dose Admin Calcitriol (Rocaltrol Cap) 0.25 mcg QAM PO 03/12/17 09:00 04/11/17 08:59 03/23/17 08:42 0.25 MCG Methimazole (Methimazole Tab) 2.5 mg QAM PO 03/12/17 09:00 04/11/17 08:59 03/23/17 08:45 2.5 MG Atorvastatin Calcium (Lipitor Tab) 20 mg HS PO 03/13/17 21:00 04/12/17 20:59 03/22/17 20:12 20 MG Morphine Sulfate (MoRPHine SULFATE INJ) 2 mg Q4H PRN IV 03/12/17 07:15 03/26/17 07:14 03/17/17 05:50 2 MG Acetaminophen (Tylenol Tab) 650 mg Q4H PRN PO 03/12/17 07:15 04/11/17 07:14 Ondansetron HCl (Zofran Inj) 4 mg Q6H PRN IV 03/12/17 07:15 04/11/17 07:14 03/21/17 08:46 4 MG Raspberry (Raspberry Syrup 5ml Cup) 5 ml QID PO 03/12/17 09:00 03/31/17 16:59 03/23/17 08:55 5 ML Heparin Sodium (Porcine) (Heparin Sq 5000 Unit/0.5ml) 5,000 unit Q12 SQ 03/12/17 21:00 04/11/17 20:59 03/23/17 08:55 5,000 UNIT Heparin Sodium (Porcine) (Heparin 10 Unit/ ml 5 ml Flush) 5 ml PRN PRN FLUSH 03/13/17 01:30 04/12/17 01:29 03/23/17 08:05 10 ML Domperidone Maleate (Domperidone) 10 mg ACHS PO 03/14/17 16:15 04/13/17 16:14 03/23/17 06:12 10 MG Folic Acid (Folvite Tab) 1 mg QAM PO 03/14/17 16:15 04/13/17 16:14 03/23/17 08:46 1 MG Ethacrynic Acid (Edecrin Tab) 75 mg QAM PO 03/15/17 12:00 04/14/17 11:59 Future hold 03/23/17 08:46 75 MG Tramadol HCl (Ultram Tab) 50 mg Q6H PRN PO 03/15/17 12:00 04/14/17 11:59 03/18/17 03:39 50 MG Lidocaine (Lidoderm Patch 5%) 2 patch QAM TD 03/15/17 14:30 04/14/17 14:29 03/22/17 08:42 2 PATCH Acetaminophen/ Hydrocodone Bitart ([place] 5/325 Tab) 0.5 tab Q6H PRN PO 03/15/17 13:30 03/29/17 13:29 03/23/17 05:04 0.5 TAB Miscellaneous (Remove Lidoderm Patch) 2 ea DAILY@21 N/A 03/15/17 21:00 04/14/17 20:59 03/18/17 21:11 2 EA Pramipexole Dihydrochloride (miraPEX TAB) 0.25 mg HS PO 03/16/17 21:00 04/15/17 20:59 03/22/17 20:13 0.25 MG Lisinopril (Zestril Tab) 10 mg HS PO 03/16/17 21:00 04/15/17 20:59 03/22/17 20:12 10 MG Pantoprazole Sodium (Protonix Tab) 40 mg DAILY PO 03/18/17 08:00 04/17/17 07:59 Future Hold 03/21/17 09:44 40 MG Enteral Nutritional Formula (Boost Breeze Nutritional Drink) 1 box BID PO 03/17/17 20:00 04/16/17 19:59 Loratadine (Claritin Tab) 10 mg QAM PO 03/19/17 08:00 04/18/17 07:59 03/23/17 08:46 10 MG Fluticasone Propionate (Flonase Nasal [place]) 2 sprays HS ROBIN 03/18/17 23:00 04/17/17 22:59 03/22/17 20:09 2 SPRAYS Colchicine (Colchicine Tab) 0.6 mg DAILY PO 03/20/17 08:00 04/19/17 07:59 Future Hold 03/21/17 09:44 0.6 MG Cholestyramine Resin (Questran Powder Light) 4 gm DAILY@0700 PO 03/20/17 07:00 04/19/17 06:59 03/22/17 06:46 4 GM Multivitamins/ Minerals (Multivitamin W/ Minerals Tab) 1 tab QAM PO 03/21/17 08:00 04/20/17 07:59 03/23/17 08:45 1 TAB Vancomycin HCl (Vancomycin Oral Soln) 250 mg QID PO 03/21/17 17:00 03/31/17 16:59 03/23/17 08:55 250 MG Metoprolol Tartrate (Lopressor Tab) 25 mg QAM PO 03/23/17 08:00 04/22/17 07:59 03/23/17 08:46 25 MG Prednisone (PredniSONE TAB) 5 mg DAILY PO 03/23/17 08:00 04/22/17 07:59 03/23/17 08:45 5 MG Simethicone (Mylicon Chew Tab) 80 mg Q6H PRN PO 03/22/17 12:45 04/21/17 12:44 03/22/17 14:41 80 MG Gabapentin (Neurontin Cap) 100 mg BID PO 03/23/17 20:00 04/22/17 19:59 Gabapentin 150 mg DAILY@1400 PO 03/23/17 14:00 04/22/17 13:59 Dexamethasone/ Nystatin/ Diphenhydramine HCl/Sucrose/ Microcrystalline Cellulose/Barcode (Decadron Conc Soln/Mycostatin Susp/Benadryl Syrup/Ora-Sweet Syrup/Ora-Plus Susp. Vehicle) Q6H PRN PO 03/23/17 11:45 04/22/17 11:44 Review of Systems Constitutional: No chills, No fever Abdomen: + diarrhea, + problem reported (gastroparesis, hemorrhoids), No nausea Neurologic: + numbness/tingling (in her feet ) Integumentary: + problem reported (scleroderma) Physical Exam Date Time Temp Pulse Resp B/P Pulse Ox O2 Delivery O2 Flow Rate FiO2 03/23/17 10:30 36.9 03/23/17 08:00 96 Room Air 03/23/17 07:37 37.2 88 18 144/69 96 Room Air 03/23/17 00:00 Room Air 03/22/17 16:00 Room Air 03/22/17 15:42 36.9 75 18 122/61 99 Room Air ENT: normal ENT inspection Respiratory/Chest: no respiratory distress Abdomen/GI: soft, + tenderness (minimal RLQ, nondistended) Extremities/Musculoskelatal: + pedal edema (trace) Neurologic/Psych: alert, normal mood/affect, oriented x 3 Laboratory Results Last 24 Hours Test 03/23/17 08:09 03/23/17 09:25 White Blood Count 10.87 K/uL Red Blood Count 3.67 M/uL Hemoglobin 10.0 g/dL Hematocrit 31.2 % Mean Corpuscular Volume 85.0 fL Mean Corpuscular Hemoglobin 27.2 pg Mean Corpuscular Hemoglobin Concent 32.1 g/dl Platelet Count 390 K/uL Mean Platelet Volume 9.4 fL RDW Standard Deviation 48.3 fL RDW Coefficient of Variation 15.8 % Neutrophils % (Manual) 53.5 % Lymphocytes % (Manual) 27.7 % Monocytes % (Manual) 9.8 % Eosinophils % (Manual) 0.9 % Metamyelocytes % 4.5 % Myelocytes % 3.6 % Neutrophils # (Manual) 5.82 K/uL Total Absolute Neutrophils 5.82 K/uL Lymphocytes # (Manual) 3.01 K/uL Total Absolute Lymphocytes 3.01 K/uL Monocytes # (Manual) 1.07 K/uL Eosinophils # (Manual) 0.10 K/uL Metamyelocytes # 0.49 K/uL Myelocytes # 0.39 K/uL Toxic Granulation 2+ Polychromasia 1+ Sodium Level 130 mmol/L Potassium Level 4.1 mmol/L Chloride Level 97 mmol/L Carbon Dioxide Level 27 mmol/L Anion Gap 6.0 mmol/L Blood Urea Nitrogen 15 mg/dl Creatinine 1.10 mg/dl Est Creatinine Clear Calc Drug Dose 41.2 ml/min Estimated GFR () 54.5 Estimated GFR (Non- 47.0 BUN/Creatinine Ratio 13.8 Random Glucose 77 mg/dl Calcium Level 8.6 mg/dl Magnesium Level 1.9 mg/dl Triglycerides Level 189 mg/dl Cholesterol Level 101 mg/dl LDL Cholesterol Direct 52 mg/dl HDL Cholesterol 36 mg/dl Vitamin B12 Level 1746 pg/mL Urine Color YELLOW Urine Appearance CLOUDY Urine pH 6.0 Urine Specific [place] 1.010 Urine Protein NEG Urine Glucose (UA) NEG Urine Ketones NEG Urine Occult Blood TRACE Urine Nitrite POS Urine Bilirubin NEG Urine Urobilinogen NEG Urine Leukocyte Esterase LARGE Urine WBC (Auto) >30 /hpf Urine RBC (Auto) 0-4 /hpf Urine Hyaline Casts (Auto) 1-5 /lpf Urine Epithelial Cells (Auto) 10-20 /lpf Urine Bacteria (Auto) 4+ KUB CLINICAL HISTORY: Ileus. Clostridium difficile colitis. FINDINGS: 2 AP, portable, supine abdominal radiographs are compared to study dated 03/21/2017 and correlated with abdominal CT dated 03/12/2017. There is a nonobstructed abdominal bowel gas pattern. There is no evidence of colonic distention. This likely represents ileus as clinically suspected. Cholecystectomy clips are seen in the right upper quadrant. Surgical clips also project over the esophageal hiatus. There is no evidence of intraperitoneal free air on this supine view. There are no abnormal abdominal calcifications. The skeletal structures are osteopenic. There is lumbosacral spondylosis and scoliosis. Postoperative change is noted in the right femur. IMPRESSION: Nonobstructed abdominal bowel gas pattern. Electronically signed by: Todd Urias M.D. 03/22/2017 11:31 AM Dictated Date/Time: 03/22/2017 11:30 AM Assessment & Plan C. diff colitis Her symptoms are improved today and her vitals, XR and WBC remain stable. She does not have any acute abdominal findings on exam, we will continue to follow her progress. She would agree to surgery if the situation was "life- threatening" and she is already aware of her high surgical risk. Discussed colonic lavage or subtotal colectomy as surgical options if her condition deteriorates. She was seen by and case discussed with Dr. Cast. 03/23/17- see general surgery progress note from or- reviewed history, examined pt Dr Cast
--- NOTE | 2017-03-23 13:08 | Surgery Progress Note ---
Surgery Progress Note Date of Service March 23, 2017. Subjective see consult note by Tera Jones 03/23/17 pt is awake, alert, appropriate- smiling at times afeb, HR nl, adeq BP says she no abd pain today Objective Vital Signs: Date Time Temp Pulse Resp B/P Pulse Ox O2 Delivery O2 Flow Rate FiO2 03/23/17 10:30 36.9 03/23/17 08:00 96 Room Air 03/23/17 07:37 37.2 88 18 144/69 96 Room Air 03/23/17 00:00 Room Air 03/22/17 16:00 Room Air 03/22/17 15:42 36.9 75 18 122/61 99 Room Air General Appearance: no apparent distress Abdomen: soft (mild distention, no peritoneal irritation) Laboratory Results: Results Past 24 Hours Test 03/23/17 08:09 03/23/17 09:25 Range/Units White Blood Count 10.87 4.8-10.8 K/uL Red Blood Count 3.67 4.2-5.4 M/uL Hemoglobin 10.0 12.0-16.0 g/dL Hematocrit 31.2 37-47 % Mean Corpuscular Volume 85.0 80-100 fL Mean Corpuscular Hemoglobin 27.2 25-34 pg Mean Corpuscular Hemoglobin Concent 32.1 32-36 g/dl Platelet Count 390 130-400 K/uL Mean Platelet Volume 9.4 7.4-10.4 fL RDW Standard Deviation 48.3 36.4-46.3 fL RDW Coefficient of Variation 15.8 11.5-14.5 % Neutrophils % (Manual) 53.5 % Lymphocytes % (Manual) 27.7 % Monocytes % (Manual) 9.8 % Eosinophils % (Manual) 0.9 % Metamyelocytes % 4.5 % Myelocytes % 3.6 % Neutrophils # (Manual) 5.82 1.4-6.5 K/uL Total Absolute Neutrophils 5.82 1.4-6.5 K/uL Lymphocytes # (Manual) 3.01 1.2-3.4 K/uL Total Absolute Lymphocytes 3.01 1.2-3.4 K/uL Monocytes # (Manual) 1.07 0.11-0.59 K/uL Eosinophils # (Manual) 0.10 0-0.5 K/uL Metamyelocytes # 0.49 0-0 K/uL Myelocytes # 0.39 0-0 K/uL Toxic Granulation 2+ Polychromasia 1+ Sodium Level 130 136-145 mmol/L Potassium Level 4.1 3.5-5.1 mmol/L Chloride Level 97 98-107 mmol/L Carbon Dioxide Level 27 21-32 mmol/L Anion Gap 6.0 3-11 mmol/L Blood Urea Nitrogen 15 7-18 mg/dl Creatinine 1.10 0.60-1.20 mg/dl Est Creatinine Clear Calc Drug Dose 41.2 ml/min Estimated GFR () 54.5 Estimated GFR (Non- 47.0 BUN/Creatinine Ratio 13.8 10-20 Random Glucose 77 70-99 mg/dl Calcium Level 8.6 8.5-10.1 mg/dl Magnesium Level 1.9 1.8-2.4 mg/dl Triglycerides Level 189 0-150 mg/dl Cholesterol Level 101 0-200 mg/dl LDL Cholesterol Direct 52 mg/dl HDL Cholesterol 36 mg/dl Vitamin B12 Level 1746 211-911 pg/mL Urine Color YELLOW Urine Appearance CLOUDY CLEAR Urine pH 6.0 4.5-7.5 Urine Specific [place] 1.010 1.000-1.030 Urine Protein NEG NEG Urine Glucose (UA) NEG NEG Urine Ketones NEG NEG Urine Occult Blood TRACE NEG Urine Nitrite POS NEG Urine Bilirubin NEG NEG Urine Urobilinogen NEG NEG Urine Leukocyte Esterase LARGE NEG Urine WBC (Auto) >30 0-5 /hpf Urine RBC (Auto) 0-4 0-4 /hpf Urine Hyaline Casts (Auto) 1-5 0-5 /lpf Urine Epithelial Cells (Auto) 10-20 0-5 /lpf Urine Bacteria (Auto) 4+ NEG Microbiology Results 03/23/17 Urine Culture, Received Pending Assessment & Plan 03/23/17- see Tera Jones's note- options would involve ileostomy- either subtotal colectomy or loop ileostomy with colonic irrigation- both are not without significant morbidity and mortality. Currently her wbc is down w/o shift, afeb, HR nl, renal function improved. No evidence of toxic megacolon now- recent film showed no colonic distention. Will follow with you
[2017-03-23] MEDS ORDERED: PIPERACILL/TAZOBAC CONSULT ACTIVE PRN (13:30)
[2017-03-23] MEDS ORDERED: GABAPENTIN 150 MG/3 ML UDP PO SCH (14:00)
[2017-03-23 15:23] VITALS: BP 104/64; PULSE 91; TEMP 37.2; O2SAT 97
[2017-03-23] MEDS ORDERED: PIPERACILL/TAZOBAC IV 3.375 GM in DEXTROSE 5% 100ML 100 ML IV SCH (18:00)
[2017-03-23] MEDS: FLUTICASONE PROPIONATE NA SPR 16 GM BTL NAE SCH (22:05)
[2017-03-23] MEDS: ATORVASTATIN 20 MG TAB PO SCH (22:09)
[2017-03-23] MEDS: PRAMIPEXOLE DIHYDROCHLORIDE 0.25MG TAB PO SCH (22:09)
[2017-03-23] MEDS: LISINOPRIL 10 MG TAB PO SCH (22:10)
[2017-03-24 04:46] VITALS: BP 102/68; PULSE 95; TEMP 37.2; O2SAT 95
[2017-03-24] MEDS: CHOLESTYRAMINE LIGHT 4 GM PKT PO SCH (05:55)
[2017-03-24] MEDS: DOMPERIDONE 10 MG PO SCH ×4 (05:55→21:31)
[2017-03-24 07:53] VITALS: BP 114/71; PULSE 99; TEMP 37.6; O2SAT 96
[2017-03-24 08:00] VITALS: O2SAT 96
[2017-03-24] MEDS: BOOST BREEZE NUTRITION DRINK 1 BOX PO SCH ×2 (08:00→20:00)
[2017-03-24] MEDS: LIDODERM (LIDOCAINE) PATCH 5% TD SCH (08:00)
[2017-03-24 08:33] LABS: HEMATOCRIT 30.4 % (37-47); MEAN CELL VOLUME 84.2 fL (80-100); MEAN CORPUSCULAR HEMOGLOBIN 26.6 pg (25-34); MEAN CORPUSCULAR HGB CONC 31.6 g/dl (32-36); MEAN PLATELET VOLUME 9.3 fL (7.4-10.4); PLATELET COUNT 402 K/uL (130-400); RED BLOOD COUNT 3.61 M/uL (4.2-5.4); WHITE BLOOD COUNT 15.19 K/uL (4.8-10.8)
[2017-03-24 09:01] LABS: BUN/CREATININE RATIO 14.6 (10-20); CALCIUM 8.1 mg/dl (8.5-10.1); CREATININE 1.4 mg/dl (0.60-1.20); POTASSIUM 4.4 mmol/L (3.5-5.1)
[2017-03-24 09:02] LABS: ALB/GLOB RATIO 0.7 (0.9-2)
[2017-03-24] MEDS: HEPARIN SOD 5000 UNIT/0.5 ML CARP SQ SCH ×2 (09:02→21:35)
[2017-03-24] MEDS: CEROVITE ADV FORMULA TAB PO SCH (09:03)
[2017-03-24] MEDS: RASPBERRY SYRUP 5 ML UDP PO SCH ×4 (09:03→21:30)
[2017-03-24] MEDS: METOPROLOL TARTRATE 25 MG TAB PO SCH (09:03)
[2017-03-24] MEDS: GABAPENTIN 100 MG CAP PO SCH ×2 (09:05→21:30)
[2017-03-24] MEDS: CALCITRIOL 0.25 MCG CAP PO SCH (09:05)
[2017-03-24] MEDS: ETHACRYNIC ACID 25 MG TAB PO SCH (09:05)
[2017-03-24] MEDS: LORATADINE 10 MG TAB PO SCH (09:06)
[2017-03-24] MEDS: METHIMAZOLE 5 MG TAB PO SCH (09:06)
[2017-03-24 09:19] LABS: BASO ABS # 0.14 K/uL (0-0.2); BASOPHIL % 0.9 %; COMPLETE YES; EOSINOPHIL % 0.9 %; LYMPH ABS # 1.29 K/uL (1.2-3.4); LYMPHOCYTE % 8.5 %; META ABS # 1.03 K/uL (0-0); METAMYELOCYTE % 6.8 %; MYELOCYTE % 10.3 %; NEUTROPHILS % 64.1 %; POIKILOCYTOSIS PRESENT; TOXIC GRANULATION 1+; VACUOLIZATION 1+
[2017-03-24] MEDS: VANCOMYCIN HCL 250 MG/5 ML SOLN PO SCH ×4 (09:25→21:31)
[2017-03-24 09:30] VITALS: TEMP 37.2
--- NOTE | 2017-03-24 09:38 | Gastroenterology Progress Note ---
Progress Note Date of Service: March 24, 2017 Subjective Pt evaluation today including: conversation w/ patient, physical exam, chart review, lab review Pt was seen and examined this AM. Persisting concerns of generalized weakness, terrible neuropathy and fatigue. She has been improving daily with a GI standpoint. Improving abdominal pain - less frequent cramping and lower abdominal pain. Stools were semi-formed today, still using Questran once daily. She believes she pushed herself too much yesterday with PO intake - was very full after her last meal through the night. She slept uninterrupted for over 8 hours but does not feel rested. Suspected UTI w/ a history of pyelonephritis w/ low grade temp this AM - primary team is watching as we are trying to limit ABX us with c.diff. Zosyn has not been given yet. Review of Systems Constitutional: + fatigue, + weakness, No chills, No fever Respiratory: No cough, No shortness of breath Cardiac: No chest pain, No edema Abdomen: + diarrhea, + pain, No GI bleeding, No constipation, No nausea, No vomiting Medications Current Inpatient Medications Medications (Trade) Dose Ordered Sig/[place] Route Start Time Stop Time Status Last Admin Dose Admin Calcitriol (Rocaltrol Cap) 0.25 mcg QAM PO 03/12/17 09:00 04/11/17 08:59 03/24/17 09:05 0.25 MCG Methimazole (Methimazole Tab) 2.5 mg QAM PO 03/12/17 09:00 04/11/17 08:59 03/24/17 09:06 2.5 MG Atorvastatin Calcium (Lipitor Tab) 20 mg HS PO 03/13/17 21:00 04/12/17 20:59 03/23/17 22:09 20 MG Morphine Sulfate (MoRPHine SULFATE INJ) 2 mg Q4H PRN IV 03/12/17 07:15 03/26/17 07:14 03/17/17 05:50 2 MG Acetaminophen (Tylenol Tab) 650 mg Q4H PRN PO 03/12/17 07:15 04/11/17 07:14 Ondansetron HCl (Zofran Inj) 4 mg Q6H PRN IV 03/12/17 07:15 04/11/17 07:14 03/21/17 08:46 4 MG Raspberry (Raspberry Syrup 5ml Cup) 5 ml QID PO 03/12/17 09:00 03/31/17 16:59 03/24/17 09:03 5 ML Heparin Sodium (Porcine) (Heparin Sq 5000 Unit/0.5ml) 5,000 unit Q12 SQ 03/12/17 21:00 04/11/17 20:59 03/24/17 09:02 5,000 UNIT Heparin Sodium (Porcine) (Heparin 10 Unit/ ml 5 ml Flush) 5 ml PRN PRN FLUSH 03/13/17 01:30 04/12/17 01:29 03/24/17 08:13 10 ML Domperidone Maleate (Domperidone) 10 mg ACHS PO 03/14/17 16:15 04/13/17 16:14 03/24/17 05:55 10 MG Folic Acid (Folvite Tab) 1 mg QAM PO 03/14/17 16:15 04/13/17 16:14 03/24/17 09:03 1 MG Ethacrynic Acid (Edecrin Tab) 75 mg QAM PO 03/15/17 12:00 04/14/17 11:59 Future hold 03/24/17 09:05 75 MG Tramadol HCl (Ultram Tab) 50 mg Q6H PRN PO 03/15/17 12:00 04/14/17 11:59 03/18/17 03:39 50 MG Lidocaine (Lidoderm Patch 5%) 2 patch QAM TD 03/15/17 14:30 04/14/17 14:29 03/22/17 08:42 2 PATCH Acetaminophen/ Hydrocodone Bitart (Zearing 5/325 Tab) 0.5 tab Q6H PRN PO 03/15/17 13:30 03/29/17 13:29 03/23/17 19:49 0.5 TAB Miscellaneous (Remove Lidoderm Patch) 2 ea DAILY@21 N/A 03/15/17 21:00 04/14/17 20:59 03/18/17 21:11 2 EA Pramipexole Dihydrochloride (miraPEX TAB) 0.25 mg HS PO 03/16/17 21:00 04/15/17 20:59 03/23/17 22:09 0.25 MG Lisinopril (Zestril Tab) 10 mg HS PO 03/16/17 21:00 04/15/17 20:59 03/23/17 22:10 10 MG Pantoprazole Sodium (Protonix Tab) 40 mg DAILY PO 03/18/17 08:00 04/17/17 07:59 Future Hold 03/21/17 09:44 40 MG Enteral Nutritional Formula (Boost Breeze Nutritional Drink) 1 box BID PO 03/17/17 20:00 04/16/17 19:59 Loratadine (Claritin Tab) 10 mg QAM PO 03/19/17 08:00 04/18/17 07:59 03/24/17 09:06 10 MG Fluticasone Propionate (Flonase Nasal [place]) 2 sprays HS ROBIN 03/18/17 23:00 04/17/17 22:59 03/23/17 22:05 2 SPRAYS Colchicine (Colchicine Tab) 0.6 mg DAILY PO 03/20/17 08:00 04/19/17 07:59 Future Hold 03/21/17 09:44 0.6 MG Cholestyramine Resin (Questran Powder Light) 4 gm DAILY@0700 PO 03/20/17 07:00 04/19/17 06:59 03/24/17 05:55 4 GM Multivitamins/ Minerals (Multivitamin W/ Minerals Tab) 1 tab QAM PO 03/21/17 08:00 04/20/17 07:59 03/24/17 09:03 1 TAB Vancomycin HCl (Vancomycin Oral Soln) 250 mg QID PO 03/21/17 17:00 03/31/17 16:59 03/24/17 09:25 250 MG Metoprolol Tartrate (Lopressor Tab) 25 mg QAM PO 03/23/17 08:00 04/22/17 07:59 03/24/17 09:03 25 MG Prednisone (PredniSONE TAB) 5 mg DAILY PO 03/23/17 08:00 04/22/17 07:59 03/24/17 09:05 5 MG Simethicone (Mylicon Chew Tab) 80 mg Q6H PRN PO 03/22/17 12:45 04/21/17 12:44 03/22/17 14:41 80 MG Gabapentin 100 mg BID PO 03/23/17 20:00 04/22/17 19:59 03/24/17 09:05 100 MG Dexamethasone/ Nystatin/ Diphenhydramine HCl/Sucrose/ Microcrystalline Cellulose/Barcode (Decadron Conc Soln/Mycostatin Susp/Benadryl Syrup/Ora-Sweet Syrup/Ora-Plus Susp. Vehicle) Q6H PRN PO 03/23/17 11:45 04/22/17 11:44 03/23/17 12:46 5 ML Gabapentin (Neurontin) 150 mg DAILY@1400 PO 03/24/17 14:00 04/23/17 13:59 Objective Vital Signs Date Time Temp Pulse Resp B/P Pulse Ox O2 Delivery O2 Flow Rate FiO2 03/24/17 07:53 37.6 99 18 114/71 96 Room Air 03/24/17 04:46 37.2 95 20 102/68 95 Room Air 03/24/17 00:00 Room Air 03/23/17 16:00 Room Air 03/23/17 15:23 37.2 91 18 104/64 97 Room Air 03/23/17 10:30 36.9 Physical Exam General Appearance: no apparent distress (pt is lying flat in bed) Eyes: PERRL ENT: hearing grossly normal Neck: supple Respiratory/Chest: chest non-tender, + decreased breath sounds (diminshed at bases) Cardiovascular: regular rate, rhythm Abdomen: normal bowel sounds, non tender, soft, no organomegaly, no pulsatile mass Neurologic/Psych: alert, normal mood/affect, oriented x 3 Skin: normal color, no jaundice, warm/dry, no rash Laboratory Results Last 24 Hours Test 03/24/17 08:14 White Blood Count 15.19 K/uL Red Blood Count 3.61 M/uL Hemoglobin 9.6 g/dL Hematocrit 30.4 % Mean Corpuscular Volume 84.2 fL Mean Corpuscular Hemoglobin 26.6 pg Mean Corpuscular Hemoglobin Concent 31.6 g/dl Platelet Count 402 K/uL Mean Platelet Volume 9.3 fL RDW Standard Deviation 47.9 fL RDW Coefficient of Variation 15.8 % Neutrophils % (Manual) 64.1 % Lymphocytes % (Manual) 8.5 % Monocytes % (Manual) 8.5 % Eosinophils % (Manual) 0.9 % Basophils % (Manual) 0.9 % Metamyelocytes % 6.8 % Myelocytes % 10.3 % Neutrophils # (Manual) 9.74 K/uL Total Absolute Neutrophils 9.74 K/uL Lymphocytes # (Manual) 1.29 K/uL Total Absolute Lymphocytes 1.29 K/uL Monocytes # (Manual) 1.29 K/uL Eosinophils # (Manual) 0.14 K/uL Basophils # (Manual) 0.14 K/uL Metamyelocytes # 1.03 K/uL Myelocytes # 1.56 K/uL Toxic Granulation 1+ Toxic Vacuolation 1+ Poikilocytosis PRESENT Sodium Level 129 mmol/L Potassium Level 4.4 mmol/L Chloride Level 97 mmol/L Carbon Dioxide Level 26 mmol/L Anion Gap 6.0 mmol/L Blood Urea Nitrogen 20 mg/dl Creatinine 1.40 mg/dl Est Creatinine Clear Calc Drug Dose 32.4 ml/min Estimated GFR () 40.7 Estimated GFR (Non- 35.1 BUN/Creatinine Ratio 14.6 Random Glucose 87 mg/dl Calcium Level 8.1 mg/dl Total Bilirubin 0.5 mg/dl Aspartate Amino Transf (AST/SGOT) 31 U/L Alanine Aminotransferase (ALT/SGPT) 27 U/L Alkaline Phosphatase 82 U/L Total Protein 5.5 gm/dl Albumin 2.2 gm/dl Globulin 3.3 gm/dl Albumin/Globulin Ratio 0.7 Assessment and Plan Ms. Phoenix is an 81 yr old female with C-diff, though clinically with sepsis which is improving, blood cultures negative thus far. Hb is decreasing but no evidence of GI bleeding. Her main issue today is cecal ileus. 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 - this was held and ID was consulted. Vanco dose was increased on 03/21/17. Continue Vanco po QID at 250 mg x 2 weeks Will plan for a tapering course of vanco as suggested by ID If no improvement will discuss dificid and stool transplant KUB with persisting distention and ileus - primary team please consider general surgery consultation - still clinical concern for toxic megacolon Repeat KUB tomorrow Hold narcotics Continue pureed diet Hold PPI - may cause diarrhea Hold mag - may cause diarrhea Recommended holding domperidone as can exacerbate diarrhea, but patient refused that Questran 1 time daily Simethicone as needed for gas Avoid dairy Primary team watching suspected UTI - temp this AM, Zosyn not started yet GI will follow. Please call with questions. ATTESTATION: I have performed a history and physical examination of this patient and reviewed the electronic record. Specifically, on physical examination abdomen is soft. I have discussed the case with RODRICK Scott. The above note reflects my findings, conclusions, and recommendations. Kevin Martin MD
--- NOTE | 2017-03-24 10:26 | Surgery Progress Note ---
Surgery Progress Note Date of Service March 24, 2017. Subjective trying to eat as much protein as possible but some heartburn and nausea, no lower abdominal pain but feels full, 3 BM's today, had fever and newly diagnosed UTI Objective Vital Signs: Date Time Temp Pulse Resp B/P Pulse Ox O2 Delivery O2 Flow Rate FiO2 03/24/17 07:53 37.6 99 18 114/71 96 Room Air 03/24/17 04:46 37.2 95 20 102/68 95 Room Air 03/24/17 00:00 Room Air 03/23/17 16:00 Room Air 03/23/17 15:23 37.2 91 18 104/64 97 Room Air 03/23/17 10:30 36.9 Abdomen: non tender, non distended, soft Laboratory Results: Results Past 24 Hours Test 03/24/17 08:14 Range/Units White Blood Count 15.19 4.8-10.8 K/uL Red Blood Count 3.61 4.2-5.4 M/uL Hemoglobin 9.6 12.0-16.0 g/dL Hematocrit 30.4 37-47 % Mean Corpuscular Volume 84.2 80-100 fL Mean Corpuscular Hemoglobin 26.6 25-34 pg Mean Corpuscular Hemoglobin Concent 31.6 32-36 g/dl Platelet Count 402 130-400 K/uL Mean Platelet Volume 9.3 7.4-10.4 fL RDW Standard Deviation 47.9 36.4-46.3 fL RDW Coefficient of Variation 15.8 11.5-14.5 % Neutrophils % (Manual) 64.1 % Lymphocytes % (Manual) 8.5 % Monocytes % (Manual) 8.5 % Eosinophils % (Manual) 0.9 % Basophils % (Manual) 0.9 % Metamyelocytes % 6.8 % Myelocytes % 10.3 % Neutrophils # (Manual) 9.74 1.4-6.5 K/uL Total Absolute Neutrophils 9.74 1.4-6.5 K/uL Lymphocytes # (Manual) 1.29 1.2-3.4 K/uL Total Absolute Lymphocytes 1.29 1.2-3.4 K/uL Monocytes # (Manual) 1.29 0.11-0.59 K/uL Eosinophils # (Manual) 0.14 0-0.5 K/uL Basophils # (Manual) 0.14 0-0.2 K/uL Metamyelocytes # 1.03 0-0 K/uL Myelocytes # 1.56 0-0 K/uL Toxic Granulation 1+ Toxic Vacuolation 1+ Poikilocytosis PRESENT Sodium Level 129 136-145 mmol/L Potassium Level 4.4 3.5-5.1 mmol/L Chloride Level 97 98-107 mmol/L Carbon Dioxide Level 26 21-32 mmol/L Anion Gap 6.0 3-11 mmol/L Blood Urea Nitrogen 20 7-18 mg/dl Creatinine 1.40 0.60-1.20 mg/dl Est Creatinine Clear Calc Drug Dose 32.4 ml/min Estimated GFR () 40.7 Estimated GFR (Non- 35.1 BUN/Creatinine Ratio 14.6 10-20 Random Glucose 87 70-99 mg/dl Calcium Level 8.1 8.5-10.1 mg/dl Total Bilirubin 0.5 0.2-1 mg/dl Aspartate Amino Transf (AST/SGOT) 31 15-37 U/L Alanine Aminotransferase (ALT/SGPT) 27 12-78 U/L Alkaline Phosphatase 82 45-117 U/L Total Protein 5.5 6.4-8.2 gm/dl Albumin 2.2 3.4-5.0 gm/dl Globulin 3.3 2.5-4.0 gm/dl Albumin/Globulin Ratio 0.7 0.9-2 Assessment & Plan C. diff colitis UTI abdominal exam remains benign, no additional recommendations, KUB planned for tomorrow WBC up and low grade fever, urine with E. coli, sensitivity pending on Vanco 250 mg po qid
--- NOTE | 2017-03-24 12:36 | Progress Note ---
Subjective Date of Service: March 24, 2017. Subjective Pt evaluation today including: conversation w/ patient, conversation w/ family , physical exam, chart review, lab review, review of studies, review of inpatient medication list Pt states feeling even more weak Unable to tolerate boost and diet, bloating stated No N/V No acute events overnight Problem List Medical Problems: (1) Abdominal pain Status: Acute (2) Hypotension Status: Acute (3) Ischemic colitis Status: Acute (4) Rectal bleed Status: Acute Review of Systems Constitutional: + fatigue, + weakness Respiratory: No cough, No shortness of breath, No sputum Cardiac: No chest pain, No orthopnea Abdomen: + diarrhea, No nausea, No pain, No vomiting Musculoskeletal: + joint pain, + muscle pain Female : No dysuria, No urinary frequency Neurologic: No paralysis, No weakness Objective Vital Signs Date Time Temp Pulse Resp B/P Pulse Ox O2 Delivery O2 Flow Rate FiO2 03/24/17 08:00 96 Room Air 03/24/17 07:53 37.6 99 18 114/71 96 Room Air 03/24/17 04:46 37.2 95 20 102/68 95 Room Air 03/24/17 00:00 Room Air 03/23/17 16:00 Room Air 03/23/17 15:23 37.2 91 18 104/64 97 Room Air Physical Exam General Appearance: WD/WN, + mild distress Neck: supple, no adenopathy Respiratory/Chest: lungs clear, normal breath sounds Cardiovascular: no edema, no gallop Abdomen: non tender, soft Neurologic/Psychiatric: alert, oriented x 3 Laboratory Results Last 24 Hours Test 03/24/17 08:14 White Blood Count 15.19 K/uL Red Blood Count 3.61 M/uL Hemoglobin 9.6 g/dL Hematocrit 30.4 % Mean Corpuscular Volume 84.2 fL Mean Corpuscular Hemoglobin 26.6 pg Mean Corpuscular Hemoglobin Concent 31.6 g/dl Platelet Count 402 K/uL Mean Platelet Volume 9.3 fL RDW Standard Deviation 47.9 fL RDW Coefficient of Variation 15.8 % Neutrophils % (Manual) 64.1 % Lymphocytes % (Manual) 8.5 % Monocytes % (Manual) 8.5 % Eosinophils % (Manual) 0.9 % Basophils % (Manual) 0.9 % Metamyelocytes % 6.8 % Myelocytes % 10.3 % Neutrophils # (Manual) 9.74 K/uL Total Absolute Neutrophils 9.74 K/uL Lymphocytes # (Manual) 1.29 K/uL Total Absolute Lymphocytes 1.29 K/uL Monocytes # (Manual) 1.29 K/uL Eosinophils # (Manual) 0.14 K/uL Basophils # (Manual) 0.14 K/uL Metamyelocytes # 1.03 K/uL Myelocytes # 1.56 K/uL Toxic Granulation 1+ Toxic Vacuolation 1+ Poikilocytosis PRESENT Sodium Level 129 mmol/L Potassium Level 4.4 mmol/L Chloride Level 97 mmol/L Carbon Dioxide Level 26 mmol/L Anion Gap 6.0 mmol/L Blood Urea Nitrogen 20 mg/dl Creatinine 1.40 mg/dl Est Creatinine Clear Calc Drug Dose 32.4 ml/min Estimated GFR () 40.7 Estimated GFR (Non- 35.1 BUN/Creatinine Ratio 14.6 Random Glucose 87 mg/dl Calcium Level 8.1 mg/dl Total Bilirubin 0.5 mg/dl Aspartate Amino Transf (AST/SGOT) 31 U/L Alanine Aminotransferase (ALT/SGPT) 27 U/L Alkaline Phosphatase 82 U/L Total Protein 5.5 gm/dl Albumin 2.2 gm/dl Globulin 3.3 gm/dl Albumin/Globulin Ratio 0.7 Assessment and Plan Septic shock 2nd to c. diff colitis - shock resolved C. diff colitis - severe - ileus resolved on imaging. stop IV flagyl. Consult ID and GI. Dificid not recommended. Continue Vanco po QID at 250 mg x 2 weeks. If no improvement will discuss dificid and stool transplant Surgery consulted. Agreed with conservative management at this time. KUB in AM. If persistent distention and ileus, concern for megacolon. 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 ?metronidazole which can cause. stopped flagyl. Increased gabapentin, morphine not helping. 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 Acute renal failure 2nd to ATN in setting of #1 - resolved. Cr stable. CKD stage 3 - stable and at baseline. Acute/chronic diastolic CHF stable, no exacerbation noted Hold ethacrynic acid due to worsening renal insufficiency Anemia of chronic disease +/- iron deficiency - stop PO iron for now. She is very nauseous with oral meds. Gastroparesis - continue domperidone. GI added Emend today. Appreciate their input Back pain/deconditioning - lidoderm patches prn. PT/OT evals Cramps in legs - being made worse by hypokalemia; iron def can contribute as well. Mirapex didn't seem to help. Add low dose gabapentin. Awaiting rehab placement at this time Continued [facility] stay due to: inadequate po fluid intake, inadequate oral pain control, voiding difficulties, ambulation difficulties Discharge planning: uncertain
[2017-03-24] MEDS: GABAPENTIN 250 MG/5 ML 470 ML BTL PO SCH (14:14)
[2017-03-24 16:45] VITALS: BP 101/66; PULSE 76; TEMP 37.6; O2SAT 97
[2017-03-24] MEDS: FLUTICASONE PROPIONATE NA SPR 16 GM BTL NAE SCH (21:28)
[2017-03-24] MEDS: ATORVASTATIN 20 MG TAB PO SCH (21:31)
[2017-03-24] MEDS: LISINOPRIL 10 MG TAB PO SCH (21:32)
[2017-03-24] MEDS: PRAMIPEXOLE DIHYDROCHLORIDE 0.25MG TAB PO SCH (21:32)
[2017-03-25] VITALS: BP 108/72; PULSE 81; TEMP 36.9; O2SAT 96
[2017-03-25] MEDS: DOMPERIDONE 10 MG PO SCH ×4 (05:08→21:10)
[2017-03-25 05:55] LABS: HEMATOCRIT 28.9 % (37-47); MEAN CELL VOLUME 84.5 fL (80-100); MEAN CORPUSCULAR HEMOGLOBIN 27.5 pg (25-34); MEAN CORPUSCULAR HGB CONC 32.5 g/dl (32-36); PLATELET COUNT 371 K/uL (130-400); RED BLOOD COUNT 3.42 M/uL (4.2-5.4); WHITE BLOOD COUNT 14.55 K/uL (4.8-10.8)
[2017-03-25 06:21] LABS: BUN/CREATININE RATIO 14.8 (10-20); CALCIUM 8.4 mg/dl (8.5-10.1); CREATININE 1.2 mg/dl (0.60-1.20); POTASSIUM 4.2 mmol/L (3.5-5.1)
[2017-03-25 06:26] LABS: COMPLETE YES; EOSINOPHIL % 0.9 %; LYMPH ABS # 1.02 K/uL (1.2-3.4); META ABS # 1.51 K/uL (0-0); METAMYELOCYTE % 10.4 %; MYELOCYTE % 6.1 %; NEUTROPHILS % 70.4 %
[2017-03-25] MEDS: CHOLESTYRAMINE LIGHT 4 GM PKT PO SCH (07:00)
--- NOTE | 2017-03-25 07:18 | DIAGNOSTIC IMAGING REPORT ---
KUB CLINICAL HISTORY: Ileus. Clostridium difficile colitis. FINDINGS: An AP, portable, supine abdominal radiograph is compared to study dated 03/22/[address] dated 03/12/2017. There is a nonobstructed abdominal bowel gas pattern. There is no evidence of colonic distention. Cholecystectomy clips are seen in the right upper quadrant. Surgical clips also project over the esophageal hiatus. There is no evidence of intraperitoneal free air on this supine view. There are no abnormal abdominal calcifications. The skeletal structures are osteopenic. There is lumbosacral spondylosis and scoliosis. Postoperative change is noted in the right femur. IMPRESSION: Nonobstructed abdominal bowel gas pattern. Electronically signed by: Todd Urias M.D. 03/25/2017 7:16 AM Dictated Date/Time: 03/25/2017 7:15 AM
--- NOTE | 2017-03-25 07:26 | Surgery Progress Note ---
Surgery Progress Note Date of Service March 25, 2017. Subjective upset and easily agitated- very alert and responsive will not walk she says because of neuropathy Objective Vital Signs: Date Time Temp Pulse Resp B/P Pulse Ox O2 Delivery O2 Flow Rate FiO2 03/25/17 00:00 36.9 81 20 108/72 96 Room Air 03/25/17 00:00 Room Air 03/24/17 16:45 37.6 76 24 101/66 97 Room Air 03/24/17 16:00 Room Air 03/24/17 09:30 37.2 03/24/17 08:00 96 Room Air 03/24/17 07:53 37.6 99 18 114/71 96 Room Air Abdomen: soft Laboratory Results: Results Past 24 Hours Test 03/24/17 08:14 03/25/17 05:42 Range/Units White Blood Count 15.19 14.55 4.8-10.8 K/uL Red Blood Count 3.61 3.42 4.2-5.4 M/uL Hemoglobin 9.6 9.4 12.0-16.0 g/dL Hematocrit 30.4 28.9 37-47 % Mean Corpuscular Volume 84.2 84.5 80-100 fL Mean Corpuscular Hemoglobin 26.6 27.5 25-34 pg Mean Corpuscular Hemoglobin Concent 31.6 32.5 32-36 g/dl Platelet Count 402 371 130-400 K/uL Mean Platelet Volume 9.3 9.0 7.4-10.4 fL RDW Standard Deviation 47.9 48.2 36.4-46.3 fL RDW Coefficient of Variation 15.8 15.8 11.5-14.5 % Neutrophils % (Manual) 64.1 70.4 % Lymphocytes % (Manual) 8.5 7.0 % Monocytes % (Manual) 8.5 5.2 % Eosinophils % (Manual) 0.9 0.9 % Basophils % (Manual) 0.9 % Metamyelocytes % 6.8 10.4 % Myelocytes % 10.3 6.1 % Neutrophils # (Manual) 9.74 10.24 1.4-6.5 K/uL Total Absolute Neutrophils 9.74 10.24 1.4-6.5 K/uL Lymphocytes # (Manual) 1.29 1.02 1.2-3.4 K/uL Total Absolute Lymphocytes 1.29 1.02 1.2-3.4 K/uL Monocytes # (Manual) 1.29 0.76 0.11-0.59 K/uL Eosinophils # (Manual) 0.14 0.13 0-0.5 K/uL Basophils # (Manual) 0.14 0-0.2 K/uL Metamyelocytes # 1.03 1.51 0-0 K/uL Myelocytes # 1.56 0.89 0-0 K/uL Toxic Granulation 1+ Toxic Vacuolation 1+ Poikilocytosis PRESENT Sodium Level 129 132 136-145 mmol/L Potassium Level 4.4 4.2 3.5-5.1 mmol/L Chloride Level 97 99 98-107 mmol/L Carbon Dioxide Level 26 24 21-32 mmol/L Anion Gap 6.0 9.0 3-11 mmol/L Blood Urea Nitrogen 20 18 7-18 mg/dl Creatinine 1.40 1.20 0.60-1.20 mg/dl Est Creatinine Clear Calc Drug Dose 32.4 37.8 ml/min Estimated GFR () 40.7 49.1 Estimated GFR (Non- 35.1 42.4 BUN/Creatinine Ratio 14.6 14.8 10-20 Random Glucose 87 91 70-99 mg/dl Calcium Level 8.1 8.4 8.5-10.1 mg/dl Total Bilirubin 0.5 0.2-1 mg/dl Aspartate Amino Transf (AST/SGOT) 31 15-37 U/L Alanine Aminotransferase (ALT/SGPT) 27 12-78 U/L Alkaline Phosphatase 82 45-117 U/L Total Protein 5.5 6.4-8.2 gm/dl Albumin 2.2 3.4-5.0 gm/dl Globulin 3.3 2.5-4.0 gm/dl Albumin/Globulin Ratio 0.7 0.9-2 Red Blood Cell Morphology Unremarkable does not have surgical abd- abd film looks ok- will check report Assessment & Plan 03/25/17- Very poor mobility and very limited surgical options- ileostomy or diverting colostomy may improve her GI emptying , but she will not be able to care for stoma and would require director long term care nursing- discussion of future surgery makes her agitated and she flat out refuses. She does not require urgent intervention- Dr Pierre covering over the weekend 03/23/17- see Tera Jones's note- options would involve ileostomy- either subtotal colectomy or loop ileostomy with colonic irrigation- both are not without significant morbidity and mortality. Currently her wbc is down w/o shift, afeb, HR nl, renal function improved. No evidence of toxic megacolon now- recent film showed no colonic distention. Will follow with you 03/23/17- see Tera Jones's note- options would involve ileostomy- either subtotal colectomy or loop ileostomy with colonic irrigation- both are not without significant morbidity and mortality. Currently her wbc is down w/o shift, afeb, HR nl, renal function improved. No evidence of toxic megacolon now- recent film showed no colonic distention. Will follow with you
[2017-03-25 08:00] VITALS: O2SAT 97
[2017-03-25] MEDS: LIDODERM (LIDOCAINE) PATCH 5% TD SCH (08:00)
[2017-03-25] MEDS: BOOST BREEZE NUTRITION DRINK 1 BOX PO SCH ×2 (08:00→20:00)
--- NOTE | 2017-03-25 08:13 | Gastroenterology Progress Note ---
Progress Note Date of Service: March 25, 2017 Subjective Pt evaluation today including: conversation w/ patient, physical exam, chart review, lab review PT was seen and examined this AM. Per nursing staff she had 2 very small loose liquid stools overnight when she passed gas and two large liquid stools at 1040 and 1105. There is no longer any abdominal discomfort. Denies abdominal cramping or the burning sensation she had a few days ago. From a upper abdominal standpoint - had a few set backs with dietary advancement. +nausea + regurgitation + burping and belching yesterday after lunch. Has not had any substantial PO intake since.No longer having any nausea or vomiting but + burping. Zantac and PPI were on hold. Primary team is restarting Pepcid. She would not like to use Questran anymore. White count continues to be elevated. No urinary symptoms despite + UA. No temp since 2 days ago. Primary team is holding on UTI treatment unless WBC spikes, temp returns or becomes symptomatic. KUB 03/25/17: An AP, portable, supine abdominal radiograph is compared to study dated 03/22/[address] dated 03/12/2017. There is a nonobstructed abdominal bowel gas pattern. There is no evidence of colonic distention. Cholecystectomy clips are seen in the right upper quadrant. Surgical clips also project over the esophageal hiatus. There is no evidence of intraperitoneal free air on this supine view. There are no abnormal abdominal calcifications. The skeletal structures are osteopenic. There is lumbosacral spondylosis and scoliosis. Postoperative change is noted in the right femur. Review of Systems Constitutional: No fever Cardiac: No chest pain Abdomen: + problem reported (decreased appetite, early satiety, burping), No GI bleeding, No constipation, No diarrhea, No nausea, No pain, No vomiting Medications Current Inpatient Medications Medications (Trade) Dose Ordered Sig/[place] Route Start Time Stop Time Status Last Admin Dose Admin Calcitriol (Rocaltrol Cap) 0.25 mcg QAM PO 03/12/17 09:00 04/11/17 08:59 03/24/17 09:05 0.25 MCG Methimazole (Methimazole Tab) 2.5 mg QAM PO 03/12/17 09:00 04/11/17 08:59 03/24/17 09:06 2.5 MG Atorvastatin Calcium (Lipitor Tab) 20 mg HS PO 03/13/17 21:00 04/12/17 20:59 03/24/17 21:31 20 MG Morphine Sulfate (MoRPHine SULFATE INJ) 2 mg Q4H PRN IV 03/12/17 07:15 03/26/17 07:14 03/17/17 05:50 2 MG Acetaminophen (Tylenol Tab) 650 mg Q4H PRN PO 03/12/17 07:15 04/11/17 07:14 Ondansetron HCl (Zofran Inj) 4 mg Q6H PRN IV 03/12/17 07:15 04/11/17 07:14 03/21/17 08:46 4 MG Raspberry (Raspberry Syrup 5ml Cup) 5 ml QID PO 03/12/17 09:00 03/31/17 16:59 03/24/17 21:30 5 ML Heparin Sodium (Porcine) (Heparin Sq 5000 Unit/0.5ml) 5,000 unit Q12 SQ 03/12/17 21:00 04/11/17 20:59 03/24/17 21:35 5,000 UNIT Heparin Sodium (Porcine) (Heparin 10 Unit/ ml 5 ml Flush) 5 ml PRN PRN FLUSH 03/13/17 01:30 04/12/17 01:29 03/25/17 05:38 10 ML Domperidone Maleate (Domperidone) 10 mg ACHS PO 03/14/17 16:15 04/13/17 16:14 03/25/17 05:08 10 MG Folic Acid (Folvite Tab) 1 mg QAM PO 03/14/17 16:15 04/13/17 16:14 03/24/17 09:03 1 MG Tramadol HCl (Ultram Tab) 50 mg Q6H PRN PO 03/15/17 12:00 04/14/17 11:59 03/18/17 03:39 50 MG Lidocaine (Lidoderm Patch 5%) 2 patch QAM TD 03/15/17 14:30 04/14/17 14:29 03/22/17 08:42 2 PATCH Acetaminophen/ Hydrocodone Bitart ([place] 5/325 Tab) 0.5 tab Q6H PRN PO 03/15/17 13:30 03/29/17 13:29 03/23/17 19:49 0.5 TAB Miscellaneous (Remove Lidoderm Patch) 2 ea DAILY@21 N/A 03/15/17 21:00 04/14/17 20:59 03/18/17 21:11 2 EA Pramipexole Dihydrochloride (miraPEX TAB) 0.25 mg HS PO 03/16/17 21:00 04/15/17 20:59 03/24/17 21:32 0.25 MG Lisinopril (Zestril Tab) 10 mg HS PO 03/16/17 21:00 04/15/17 20:59 03/24/17 21:32 10 MG Pantoprazole Sodium (Protonix Tab) 40 mg DAILY PO 03/18/17 08:00 04/17/17 07:59 Future Hold 03/21/17 09:44 40 MG Enteral Nutritional Formula (Boost Breeze Nutritional Drink) 1 box BID PO 03/17/17 20:00 04/16/17 19:59 Loratadine (Claritin Tab) 10 mg QAM PO 03/19/17 08:00 04/18/17 07:59 03/24/17 09:06 10 MG Fluticasone Propionate (Flonase Nasal [place]) 2 sprays HS ROBIN 03/18/17 23:00 04/17/17 22:59 03/24/17 21:28 2 SPRAYS Colchicine (Colchicine Tab) 0.6 mg DAILY PO 03/20/17 08:00 04/19/17 07:59 Future Hold 03/21/17 09:44 0.6 MG Cholestyramine Resin (Questran Powder Light) 4 gm DAILY@0700 PO 03/20/17 07:00 04/19/17 06:59 03/24/17 05:55 4 GM Multivitamins/ Minerals (Multivitamin W/ Minerals Tab) 1 tab QAM PO 03/21/17 08:00 04/20/17 07:59 03/24/17 09:03 1 TAB Vancomycin HCl (Vancomycin Oral Soln) 250 mg QID PO 03/21/17 17:00 03/31/17 16:59 03/24/17 21:31 250 MG Metoprolol Tartrate (Lopressor Tab) 25 mg QAM PO 03/23/17 08:00 04/22/17 07:59 03/24/17 09:03 25 MG Prednisone (PredniSONE TAB) 5 mg DAILY PO 03/23/17 08:00 04/22/17 07:59 03/24/17 09:05 5 MG Simethicone (Mylicon Chew Tab) 80 mg Q6H PRN PO 03/22/17 12:45 04/21/17 12:44 03/22/17 14:41 80 MG Gabapentin 100 mg BID PO 03/23/17 20:00 04/22/17 19:59 03/24/17 21:30 100 MG Dexamethasone/ Nystatin/ Diphenhydramine HCl/Sucrose/ Microcrystalline Cellulose/Barcode (Decadron Conc Soln/Mycostatin Susp/Benadryl Syrup/Ora-Sweet Syrup/Ora-Plus Susp. Vehicle) Q6H PRN PO 03/23/17 11:45 04/22/17 11:44 03/23/17 12:46 5 ML Gabapentin (Neurontin) 150 mg DAILY@1400 PO 03/24/17 14:00 04/23/17 13:59 03/24/17 14:14 150 MG Objective Vital Signs Date Time Temp Pulse Resp B/P Pulse Ox O2 Delivery O2 Flow Rate FiO2 03/25/17 00:00 36.9 81 20 108/72 96 Room Air 03/25/17 00:00 Room Air 03/24/17 16:45 37.6 76 24 101/66 97 Room Air 03/24/17 16:00 Room Air 03/24/17 09:30 37.2 Physical Exam General Appearance: no apparent distress Eyes: PERRL ENT: hearing grossly normal Neck: supple Respiratory/Chest: lungs clear, normal breath sounds Cardiovascular: regular rate, rhythm, no JVD Abdomen: normal bowel sounds, non tender, soft, no organomegaly, no pulsatile mass Extremities: non-tender, normal inspection, no pedal edema, + pertinent finding (there is no pain to palpation of bilateral lower extremities - just report of 'numbness') Neurologic/Psych: alert, normal mood/affect, oriented x 3 Skin: normal color, no jaundice, warm/dry, no rash Laboratory Results Last 24 Hours Test 03/24/17 08:14 03/25/17 05:42 White Blood Count 15.19 K/uL 14.55 K/uL Red Blood Count 3.61 M/uL 3.42 M/uL Hemoglobin 9.6 g/dL 9.4 g/dL Hematocrit 30.4 % 28.9 % Mean Corpuscular Volume 84.2 fL 84.5 fL Mean Corpuscular Hemoglobin 26.6 pg 27.5 pg Mean Corpuscular Hemoglobin Concent 31.6 g/dl 32.5 g/dl Platelet Count 402 K/uL 371 K/uL Mean Platelet Volume 9.3 fL 9.0 fL RDW Standard Deviation 47.9 fL 48.2 fL RDW Coefficient of Variation 15.8 % 15.8 % Neutrophils % (Manual) 64.1 % 70.4 % Lymphocytes % (Manual) 8.5 % 7.0 % Monocytes % (Manual) 8.5 % 5.2 % Eosinophils % (Manual) 0.9 % 0.9 % Basophils % (Manual) 0.9 % Metamyelocytes % 6.8 % 10.4 % Myelocytes % 10.3 % 6.1 % Neutrophils # (Manual) 9.74 K/uL 10.24 K/uL Total Absolute Neutrophils 9.74 K/uL 10.24 K/uL Lymphocytes # (Manual) 1.29 K/uL 1.02 K/uL Total Absolute Lymphocytes 1.29 K/uL 1.02 K/uL Monocytes # (Manual) 1.29 K/uL 0.76 K/uL Eosinophils # (Manual) 0.14 K/uL 0.13 K/uL Basophils # (Manual) 0.14 K/uL Metamyelocytes # 1.03 K/uL 1.51 K/uL Myelocytes # 1.56 K/uL 0.89 K/uL Toxic Granulation 1+ Toxic Vacuolation 1+ Poikilocytosis PRESENT Sodium Level 129 mmol/L 132 mmol/L Potassium Level 4.4 mmol/L 4.2 mmol/L Chloride Level 97 mmol/L 99 mmol/L Carbon Dioxide Level 26 mmol/L 24 mmol/L Anion Gap 6.0 mmol/L 9.0 mmol/L Blood Urea Nitrogen 20 mg/dl 18 mg/dl Creatinine 1.40 mg/dl 1.20 mg/dl Est Creatinine Clear Calc Drug Dose 32.4 ml/min 37.8 ml/min Estimated GFR () 40.7 49.1 Estimated GFR (Non- 35.1 42.4 BUN/Creatinine Ratio 14.6 14.8 Random Glucose 87 mg/dl 91 mg/dl Calcium Level 8.1 mg/dl 8.4 mg/dl Total Bilirubin 0.5 mg/dl Aspartate Amino Transf (AST/SGOT) 31 U/L Alanine Aminotransferase (ALT/SGPT) 27 U/L Alkaline Phosphatase 82 U/L Total Protein 5.5 gm/dl Albumin 2.2 gm/dl Globulin 3.3 gm/dl Albumin/Globulin Ratio 0.7 Red Blood Cell Morphology Unremarkable Assessment and Plan Ms. Phoenix is an 81 yr old female with C-diff, though clinically with sepsis which is improving, blood cultures negative thus far. Hb is decreasing but no evidence of GI bleeding. Her main issue today is cecal ileus. 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 - this was held and ID was consulted. Vanco dose was increased on 03/21/17. Encouraged ambulation and OOB Continue Vanco po QID at 250 mg x 2 weeks Will plan for a tapering course of vanco as suggested by ID If no improvement will discuss dificid and stool transplant KUB with persisting distention and ileus - primary team please consider general surgery consultation - still clinical concern for toxic megacolon Repeat KUB over the weekend Hold narcotics Continue pureed diet - suggest she backs down to clear liquids but may have pureed if she wishes Ok for pepcid per primary team Hold PPI - may cause diarrhea Hold mag - may cause diarrhea Recommended holding domperidone as can exacerbate diarrhea, but patient refused that Hold Simethicone as needed for gas Avoid dairy Primary team watching suspected UTI - temp this AM, Zosyn not started yet GI will follow. Please call with questions. ATTESTATION: I have performed a history and physical examination of this patient and reviewed the electronic record. Specifically, on physical examination abdomen is soft and non-tender. I have discussed the case with RODRICK Scott. The above note reflects my findings, conclusions, and recommendations. Kevin Martin MD
[2017-03-25 08:17] VITALS: BP 121/73; PULSE 95; TEMP 36.8; O2SAT 97
[2017-03-25] MEDS: METOPROLOL TARTRATE 25 MG TAB PO SCH (08:29)
[2017-03-25] MEDS: RASPBERRY SYRUP 5 ML UDP PO SCH ×4 (08:29→21:05)
[2017-03-25] MEDS: CEROVITE ADV FORMULA TAB PO SCH (08:29)
[2017-03-25] MEDS: VANCOMYCIN HCL 250 MG/5 ML SOLN PO SCH ×4 (08:29→21:06)
[2017-03-25] MEDS: METHIMAZOLE 5 MG TAB PO SCH (08:29)
[2017-03-25] MEDS: LORATADINE 10 MG TAB PO SCH (08:29)
[2017-03-25] MEDS: CALCITRIOL 0.25 MCG CAP PO SCH (08:29)
[2017-03-25] MEDS: GABAPENTIN 100 MG CAP PO SCH ×2 (08:30→21:05)
[2017-03-25] MEDS: HEPARIN SOD 5000 UNIT/0.5 ML CARP SQ SCH ×2 (08:31→21:09)
[2017-03-25] MEDS ORDERED: NURSING VERBAL MED ORDER ONE ×4 (09:30→14:30)
[2017-03-25] MEDS: ETHACRYNIC ACID 25 MG TAB PO SCH (09:31)
--- NOTE | 2017-03-25 12:05 | Progress Note ---
Subjective Date of Service: March 25, 2017. Subjective Pt evaluation today including: conversation w/ patient, physical exam, chart review, lab review, review of inpatient medication list Problem List Medical Problems: (1) Abdominal pain Status: Acute (2) Hypotension Status: Acute (3) Ischemic colitis Status: Acute (4) Rectal bleed Status: Acute Review of Systems Constitutional: No chills, No fatigue, No fever, No problem reported, No see HPI, No sweats, No weakness, No weight loss Eyes: No diplopia, No discharge, No eye pain, No problem reported, No redness, No see HPI, No worsening of vision ENT: No dental problems, No hearing loss, No nasal symptoms, No problem reported, No see HPI, No sore throat, No tinnitus, No trouble swallowing, No unusual epistaxis Respiratory: No cough, No dyspnea at rest, No dyspnea on exertion, No hemoptysis, No problem reported, No see HPI, No shortness of breath, No sputum, No wheezing Cardiac: No PND, No chest pain, No claudication, No edema, No orthopnea, No palpitations, No problem reported, No see HPI Abdomen: + diarrhea, + pain, + vomiting Musculoskeletal: No calf pain, No joint pain, No muscle pain, No problem reported, No see HPI, No swelling Female : No abnormal vaginal bleeding, No dysuria, No hematuria, No incontinence, No problem reported, No see HPI, No urinary frequency, No vaginal discharge Neurologic: No balance problems, No memory loss, No numbness/tingling, No paralysis, No problem reported, No see HPI, No vertigo, No weakness Psychiatric: No anhedonism, No anxiety, No depression symptoms, No insomnia, No problem reported, No see HPI, No substance abuse Heme: No abnormal bleeding/bruising, No clotting problems, No night sweats, No problem reported, No see HPI, No swollen lymph nodes Endo: No excessive thirst, No excessive urination, No fatigue, No problem reported, No see HPI Skin: No bleeding, No color change, No itch, No new/changing skin lesions, No problem reported, No rash, No see HPI Medications Current Inpatient Medications Medications (Trade) Dose Ordered Sig/[place] Route Start Time Stop Time Status Last Admin Dose Admin Calcitriol (Rocaltrol Cap) 0.25 mcg QAM PO 03/12/17 09:00 04/11/17 08:59 03/25/17 08:29 0.25 MCG Methimazole (Methimazole Tab) 2.5 mg QAM PO 03/12/17 09:00 04/11/17 08:59 03/25/17 08:29 2.5 MG Atorvastatin Calcium (Lipitor Tab) 20 mg HS PO 03/13/17 21:00 04/12/17 20:59 03/24/17 21:31 20 MG Morphine Sulfate (MoRPHine SULFATE INJ) 2 mg Q4H PRN IV 03/12/17 07:15 03/26/17 07:14 03/17/17 05:50 2 MG Acetaminophen (Tylenol Tab) 650 mg Q4H PRN PO 03/12/17 07:15 04/11/17 07:14 Ondansetron HCl (Zofran Inj) 4 mg Q6H PRN IV 03/12/17 07:15 04/11/17 07:14 03/21/17 08:46 4 MG Raspberry (Raspberry Syrup 5ml Cup) 5 ml QID PO 03/12/17 09:00 03/31/17 16:59 03/25/17 08:29 5 ML Heparin Sodium (Porcine) (Heparin Sq 5000 Unit/0.5ml) 5,000 unit Q12 SQ 03/12/17 21:00 04/11/17 20:59 03/25/17 08:31 5,000 UNIT Heparin Sodium (Porcine) (Heparin 10 Unit/ ml 5 ml Flush) 5 ml PRN PRN FLUSH 03/13/17 01:30 04/12/17 01:29 03/25/17 05:38 10 ML Domperidone Maleate (Domperidone) 10 mg ACHS PO 03/14/17 16:15 04/13/17 16:14 03/25/17 05:08 10 MG Folic Acid (Folvite Tab) 1 mg QAM PO 03/14/17 16:15 04/13/17 16:14 03/25/17 08:29 1 MG Tramadol HCl (Ultram Tab) 50 mg Q6H PRN PO 03/15/17 12:00 04/14/17 11:59 03/18/17 03:39 50 MG Lidocaine (Lidoderm Patch 5%) 2 patch QAM TD 03/15/17 14:30 04/14/17 14:29 03/22/17 08:42 2 PATCH Acetaminophen/ Hydrocodone Bitart ([place] 5/325 Tab) 0.5 tab Q6H PRN PO 03/15/17 13:30 03/29/17 13:29 03/23/17 19:49 0.5 TAB Miscellaneous (Remove Lidoderm Patch) 2 ea DAILY@21 N/A 03/15/17 21:00 04/14/17 20:59 03/18/17 21:11 2 EA Pramipexole Dihydrochloride (miraPEX TAB) 0.25 mg HS PO 03/16/17 21:00 04/15/17 20:59 03/24/17 21:32 0.25 MG Lisinopril (Zestril Tab) 10 mg HS PO 03/16/17 21:00 04/15/17 20:59 03/24/17 21:32 10 MG Pantoprazole Sodium (Protonix Tab) 40 mg DAILY PO 03/18/17 08:00 04/17/17 07:59 Future Hold 03/21/17 09:44 40 MG Enteral Nutritional Formula (Boost Breeze Nutritional Drink) 1 box BID PO 03/17/17 20:00 04/16/17 19:59 Loratadine (Claritin Tab) 10 mg QAM PO 03/19/17 08:00 04/18/17 07:59 03/25/17 08:29 10 MG Fluticasone Propionate (Flonase Nasal [place]) 2 sprays HS ROBIN 03/18/17 23:00 04/17/17 22:59 03/24/17 21:28 2 SPRAYS Colchicine (Colchicine Tab) 0.6 mg DAILY PO 03/20/17 08:00 04/19/17 07:59 Future Hold 03/21/17 09:44 0.6 MG Multivitamins/ Minerals (Multivitamin W/ Minerals Tab) 1 tab QAM PO 03/21/17 08:00 04/20/17 07:59 03/25/17 08:29 1 TAB Vancomycin HCl (Vancomycin Oral Soln) 250 mg QID PO 03/21/17 17:00 03/31/17 16:59 03/25/17 08:29 250 MG Metoprolol Tartrate (Lopressor Tab) 25 mg QAM PO 03/23/17 08:00 04/22/17 07:59 03/25/17 08:29 25 MG Prednisone (PredniSONE TAB) 5 mg DAILY PO 03/23/17 08:00 04/22/17 07:59 03/25/17 08:30 5 MG Simethicone (Mylicon Chew Tab) 80 mg Q6H PRN PO 03/22/17 12:45 04/21/17 12:44 03/22/17 14:41 80 MG Gabapentin 100 mg BID PO 03/23/17 20:00 04/22/17 19:59 03/25/17 08:30 100 MG Dexamethasone/ Nystatin/ Diphenhydramine HCl/Sucrose/ Microcrystalline Cellulose/Barcode (Decadron Conc Soln/Mycostatin Susp/Benadryl Syrup/Ora-Sweet Syrup/Ora-Plus Susp. Vehicle) Q6H PRN PO 03/23/17 11:45 04/22/17 11:44 03/23/17 12:46 5 ML Gabapentin (Neurontin) 150 mg DAILY@1400 PO 03/24/17 14:00 04/23/17 13:59 03/24/17 14:14 150 MG Ethacrynic Acid (Edecrin Tab) 75 mg DAILY PO 03/25/17 08:00 04/24/17 07:59 03/25/17 09:31 75 MG Objective Vital Signs Date Time Temp Pulse Resp B/P Pulse Ox O2 Delivery O2 Flow Rate FiO2 03/25/17 08:17 36.8 95 16 121/73 97 Room Air 03/25/17 08:00 97 Room Air 03/25/17 00:00 36.9 81 20 108/72 96 Room Air 03/25/17 00:00 Room Air 03/24/17 16:45 37.6 76 24 101/66 97 Room Air 03/24/17 16:00 Room Air Physical Exam General Appearance: WD/WN, no apparent distress Eyes: normal inspection, PERRL, EOMI ENT: normal ENT inspection, hearing grossly normal Neck: supple Respiratory/Chest: chest non-tender, lungs clear, normal breath sounds, no respiratory distress, no accessory muscle use Cardiovascular: regular rate, rhythm, no edema, no gallop, no JVD, no murmur Abdomen: normal bowel sounds, non tender, soft, no organomegaly Extremities: normal range of motion, non-tender, normal inspection, no pedal edema Neurologic/Psychiatric: healthcare representative II-XII nml as tested, no motor/sensory deficits, alert, normal mood/affect, oriented x 3 Skin: normal color, warm/dry, no rash Laboratory Results Last 24 Hours Test 03/25/17 05:42 White Blood Count 14.55 K/uL Red Blood Count 3.42 M/uL Hemoglobin 9.4 g/dL Hematocrit 28.9 % Mean Corpuscular Volume 84.5 fL Mean Corpuscular Hemoglobin 27.5 pg Mean Corpuscular Hemoglobin Concent 32.5 g/dl Platelet Count 371 K/uL Mean Platelet Volume 9.0 fL RDW Standard Deviation 48.2 fL RDW Coefficient of Variation 15.8 % Neutrophils % (Manual) 70.4 % Lymphocytes % (Manual) 7.0 % Monocytes % (Manual) 5.2 % Eosinophils % (Manual) 0.9 % Metamyelocytes % 10.4 % Myelocytes % 6.1 % Neutrophils # (Manual) 10.24 K/uL Total Absolute Neutrophils 10.24 K/uL Lymphocytes # (Manual) 1.02 K/uL Total Absolute Lymphocytes 1.02 K/uL Monocytes # (Manual) 0.76 K/uL Eosinophils # (Manual) 0.13 K/uL Metamyelocytes # 1.51 K/uL Myelocytes # 0.89 K/uL Red Blood Cell Morphology Unremarkable Sodium Level 132 mmol/L Potassium Level 4.2 mmol/L Chloride Level 99 mmol/L Carbon Dioxide Level 24 mmol/L Anion Gap 9.0 mmol/L Blood Urea Nitrogen 18 mg/dl Creatinine 1.20 mg/dl Est Creatinine Clear Calc Drug Dose 37.8 ml/min Estimated GFR () 49.1 Estimated GFR (Non- 42.4 BUN/Creatinine Ratio 14.8 Random Glucose 91 mg/dl Calcium Level 8.4 mg/dl Assessment and Plan Septic shock 2nd to c. diff colitis - shock resolved C. diff colitis - severe - ileus resolved on imaging. Consult ID and GI appreciated . Continue Vanco po QID at 250 mg x 2 weeks. Surgery consulted. Agreed with conservative management, . Pt refusing any surgery at this time unless it is life saving which is not the case but will reassess if worsening condition Generalized weakness likely secondary to deconditioning, low vit D of 21 / will add supplement, might also be secondary to Neurontin increase Neuropathy bilateral feet starting last night. possible metronidazole which can cause. stopped flagyl. Increased gabapentin, morphine not helping. 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 Acute renal failure 2nd to ATN in setting of #1 - resolved. Cr stable. CKD stage 3 - stable and at baseline. Acute/chronic diastolic CHF stable, no exacerbation noted restart ethacrynic acid Anemia of chronic disease +/- iron deficiency - stop PO iron for now. She is very nauseous with oral meds. Gastroparesis - continue domperidone. GI added Emend today. Appreciate their input Back pain/deconditioning - lidoderm patches prn. PT/OT evals Cramps in legs - being made worse by hypokalemia; iron def can contribute as well. Mirapex didn't seem to help. Add low dose gabapentin. possible UTI with no urinary symptoms, could be bacteriuria , consider treating after C diff is under control and diarrhea resolves Await disposition to rehab Continued [facility] stay due to: inadequate po fluid intake, inadequate oral pain control, voiding difficulties, ambulation difficulties Discharge planning: uncertain
[2017-03-25] MEDS ORDERED: ALUMINUM/MAGNESIUM SUSP 30 ML UDC ONE (14:14)
[2017-03-25] MEDS ORDERED: FAMOTIDINE IV INJ 20 MG in DEXTROSE 5% 100ML 100 ML IV ONE (14:30)
[2017-03-25 15:52] VITALS: BP 107/68; PULSE 87; TEMP 37.7; O2SAT 97
[2017-03-25] MEDS: GABAPENTIN 250 MG/5 ML 470 ML BTL PO SCH (16:03)
[2017-03-25] MEDS: ALUMINUM/MAGNESIUM SUSP 30 ML UDC PO PRN (21:02)
[2017-03-25] MEDS: PRAMIPEXOLE DIHYDROCHLORIDE 0.25MG TAB PO SCH (21:04)
[2017-03-25] MEDS: FLUTICASONE PROPIONATE NA SPR 16 GM BTL NAE SCH (21:09)
[2017-03-25] MEDS: ATORVASTATIN 20 MG TAB PO SCH (21:10)
[2017-03-25] MEDS: LISINOPRIL 10 MG TAB PO SCH (21:11)
[2017-03-26] VITALS: O2SAT 97
[2017-03-26] MEDS: DOMPERIDONE 10 MG PO SCH ×4 (05:55→21:12)
[2017-03-26 06:56] LABS: HEMATOCRIT 28.1 % (37-47); MEAN CELL VOLUME 84.1 fL (80-100); MEAN CORPUSCULAR HEMOGLOBIN 26.6 pg (25-34); MEAN CORPUSCULAR HGB CONC 31.7 g/dl (32-36); MEAN PLATELET VOLUME 9.1 fL (7.4-10.4); PLATELET COUNT 375 K/uL (130-400); RED BLOOD COUNT 3.34 M/uL (4.2-5.4); WHITE BLOOD COUNT 12.56 K/uL (4.8-10.8)
[2017-03-26 07:21] LABS: COMPLETE YES; EOSINOPHIL % 1.7 %; LYMPH ABS # 2.19 K/uL (1.2-3.4); LYMPHOCYTE % 17.4 %; META ABS # 0.98 K/uL (0-0); METAMYELOCYTE % 7.8 %; MYELOCYTE % 3.5 %; NEUTROPHILS % 61.8 %; TOXIC GRANULATION 3+
[2017-03-26 07:33] LABS: ALB/GLOB RATIO 0.6 (0.9-2); BUN/CREATININE RATIO 11.9 (10-20); CALCIUM 8.1 mg/dl (8.5-10.1); CREATININE 1.4 mg/dl (0.60-1.20); MAGNESIUM 1.8 mg/dl (1.8-2.4); PHOSPHORUS 2.6 mg/dl (2.5-4.9); POTASSIUM 4.1 mmol/L (3.5-5.1)
[2017-03-26 08:26] VITALS: BP 103/63; PULSE 90; TEMP 37.6; O2SAT 96
[2017-03-26] MEDS: GABAPENTIN 100 MG CAP PO SCH ×2 (09:05→20:00)
[2017-03-26] MEDS: ETHACRYNIC ACID 25 MG TAB PO SCH (09:06)
[2017-03-26] MEDS: METOPROLOL TARTRATE 25 MG TAB PO SCH ×2 (09:07→16:05)
[2017-03-26] MEDS: LORATADINE 10 MG TAB PO SCH (09:07)
[2017-03-26] MEDS: BOOST BREEZE NUTRITION DRINK 1 BOX PO SCH ×2 (09:07→20:00)
[2017-03-26] MEDS: CHOLECALCIFEROL 1000 INTER.UNIT TAB PO SCH (09:08)
[2017-03-26] MEDS: VANCOMYCIN HCL 250 MG/5 ML SOLN PO SCH ×4 (09:08→20:00)
[2017-03-26] MEDS: RASPBERRY SYRUP 5 ML UDP PO SCH ×4 (09:09→20:00)
[2017-03-26] MEDS: CEROVITE ADV FORMULA TAB PO SCH (09:10)
[2017-03-26] MEDS: LIDODERM (LIDOCAINE) PATCH 5% TD SCH (09:12)
[2017-03-26] MEDS: METHIMAZOLE 5 MG TAB PO SCH (09:18)
[2017-03-26] MEDS: HEPARIN SOD 5000 UNIT/0.5 ML CARP SQ SCH ×2 (09:22→21:16)
[2017-03-26 09:30] VITALS: BP 99/97; PULSE 100
[2017-03-26] MEDS ORDERED: NURSING VERBAL MED ORDER ONE (10:00)
--- NOTE | 2017-03-26 10:40 | PROGRESS NOTE ---
DATE: 03/26/2017 Gastroenterology progress note cross coverage. AGE: 81. SEX: Female. RACE: . I had the pleasure of seeing Mariangel Phoenix at her bedside today. She states from an abdominal standpoint, she is feeling better. She did have 3-4 small volume loose stools overnight, but she said that this is an improvement from previous. She continues to have mild abdominal pain in the left lower quadrant which she rates as 2/10, intermittent, nonradiating and alleviated with a bowel movement. She denies any further complaints. PHYSICAL EXAMINATION: VITAL SIGNS: Temp 37.6, pulse 100, respirations 18, blood pressure 103/63 and pulse ox 96% on room air. GENERAL: Awake, cooperative, chronic ill-appearing, in no acute distress. ABDOMEN: Soft, mild tenderness in the left lower quadrant, mildly distended. LABORATORY STUDIES: From today include a white blood cell count of 12.56, hemoglobin 8.9, hematocrit 28.1 and a platelet count of 375. Sodium 130, potassium 4.1, chloride 97, bicarbonate 24, BUN 17, creatinine 1.4, blood glucose 90, total protein 5.7, albumin 2.2, AST 29, ALT 29, alkaline phosphatase 75 and total bilirubin 0.6. IMPRESSION: An 81-year-old female, with Clostridium difficile, with improving symptoms. PLAN: Continue vancomycin 250 mg p.o. q.i.d. x2 weeks; she will receive a tapering dose of vancomycin as per ID. Continue supportive care. Once again, thanks for allowing me to participate in the care of this patient. If you have any further questions, please do not hesitate in contacting me.
--- NOTE | 2017-03-26 13:03 | Progress Note ---
Subjective Date of Service: March 26, 2017. Subjective Pt evaluation today including: conversation w/ patient, physical exam, chart review, lab review, review of inpatient medication list Problem List Medical Problems: (1) Abdominal pain Status: Acute (2) Hypotension Status: Acute (3) Ischemic colitis Status: Acute (4) Rectal bleed Status: Acute Review of Systems Constitutional: No chills, No fatigue, No fever, No problem reported, No see HPI, No sweats, No weakness, No weight loss Eyes: No diplopia, No discharge, No eye pain, No problem reported, No redness, No see HPI, No worsening of vision ENT: No dental problems, No hearing loss, No nasal symptoms, No problem reported, No see HPI, No sore throat, No tinnitus, No trouble swallowing, No unusual epistaxis Respiratory: No cough, No dyspnea at rest, No dyspnea on exertion, No hemoptysis, No problem reported, No see HPI, No shortness of breath, No sputum, No wheezing Cardiac: No PND, No chest pain, No claudication, No edema, No orthopnea, No palpitations, No problem reported, No see HPI Abdomen: + diarrhea, + pain, No GI bleeding, No constipation, No nausea, No problem reported, No see HPI, No vomiting Musculoskeletal: No calf pain, No joint pain, No muscle pain, No problem reported, No see HPI, No swelling Female : No abnormal vaginal bleeding, No dysuria, No hematuria, No incontinence, No problem reported, No see HPI, No urinary frequency, No vaginal discharge Neurologic: No balance problems, No memory loss, No numbness/tingling, No paralysis, No problem reported, No see HPI, No vertigo, No weakness Psychiatric: No anhedonism, No anxiety, No depression symptoms, No insomnia, No problem reported, No see HPI, No substance abuse Heme: No abnormal bleeding/bruising, No clotting problems, No night sweats, No problem reported, No see HPI, No swollen lymph nodes Endo: No excessive thirst, No excessive urination, No fatigue, No problem reported, No see HPI Skin: No bleeding, No color change, No itch, No new/changing skin lesions, No problem reported, No rash, No see HPI Medications Current Inpatient Medications Medications (Trade) Dose Ordered Sig/[place] Route Start Time Stop Time Status Last Admin Dose Admin Methimazole (Methimazole Tab) 2.5 mg QAM PO 03/12/17 09:00 04/11/17 08:59 03/26/17 09:18 2.5 MG Atorvastatin Calcium (Lipitor Tab) 20 mg HS PO 03/13/17 21:00 04/12/17 20:59 03/25/17 21:10 20 MG Acetaminophen (Tylenol Tab) 650 mg Q4H PRN PO 03/12/17 07:15 04/11/17 07:14 Ondansetron HCl (Zofran Inj) 4 mg Q6H PRN IV 03/12/17 07:15 04/11/17 07:14 03/21/17 08:46 4 MG Raspberry (Raspberry Syrup 5ml Cup) 5 ml QID PO 03/12/17 09:00 03/31/17 16:59 03/26/17 09:09 5 ML Heparin Sodium (Porcine) (Heparin Sq 5000 Unit/0.5ml) 5,000 unit Q12 SQ 03/12/17 21:00 04/11/17 20:59 03/26/17 09:22 5,000 UNIT Heparin Sodium (Porcine) (Heparin 10 Unit/ ml 5 ml Flush) 5 ml PRN PRN FLUSH 03/13/17 01:30 04/12/17 01:29 03/26/17 06:29 10 ML Domperidone Maleate (Domperidone) 10 mg ACHS PO 03/14/17 16:15 04/13/17 16:14 03/26/17 05:55 10 MG Folic Acid (Folvite Tab) 1 mg QAM PO 03/14/17 16:15 04/13/17 16:14 03/26/17 09:17 1 MG Tramadol HCl (Ultram Tab) 50 mg Q6H PRN PO 03/15/17 12:00 04/14/17 11:59 03/18/17 03:39 50 MG Acetaminophen/ Hydrocodone Bitart ([place] 5/325 Tab) 0.5 tab Q6H PRN PO 03/15/17 13:30 03/29/17 13:29 03/23/17 19:49 0.5 TAB Pramipexole Dihydrochloride (miraPEX TAB) 0.25 mg HS PO 03/16/17 21:00 04/15/17 20:59 03/24/17 21:32 0.25 MG Lisinopril (Zestril Tab) 10 mg HS PO 03/16/17 21:00 04/15/17 20:59 03/25/17 21:11 10 MG Pantoprazole Sodium (Protonix Tab) 40 mg DAILY PO 03/18/17 08:00 04/17/17 07:59 Future Hold 03/21/17 09:44 40 MG Enteral Nutritional Formula (Boost Breeze Nutritional Drink) 1 box BID PO 03/17/17 20:00 04/16/17 19:59 Loratadine (Claritin Tab) 10 mg QAM PO 03/19/17 08:00 04/18/17 07:59 03/26/17 09:07 10 MG Fluticasone Propionate (Flonase Nasal [place]) 2 sprays HS ROBIN 03/18/17 23:00 04/17/17 22:59 03/25/17 21:09 2 SPRAYS Colchicine (Colchicine Tab) 0.6 mg DAILY PO 03/20/17 08:00 04/19/17 07:59 Future Hold 03/21/17 09:44 0.6 MG Multivitamins/ Minerals (Multivitamin W/ Minerals Tab) 1 tab QAM PO 03/21/17 08:00 04/20/17 07:59 03/26/17 09:10 1 TAB Vancomycin HCl (Vancomycin Oral Soln) 250 mg QID PO 03/21/17 17:00 03/31/17 16:59 03/26/17 09:08 250 MG Metoprolol Tartrate (Lopressor Tab) 25 mg QAM PO 03/23/17 08:00 04/22/17 07:59 03/26/17 09:07 25 MG Prednisone (PredniSONE TAB) 5 mg DAILY PO 03/23/17 08:00 04/22/17 07:59 03/26/17 09:10 5 MG Simethicone (Mylicon Chew Tab) 80 mg Q6H PRN PO 03/22/17 12:45 04/21/17 12:44 03/22/17 14:41 80 MG Gabapentin 100 mg BID PO 03/23/17 20:00 04/22/17 19:59 03/26/17 09:05 100 MG Dexamethasone/ Nystatin/ Diphenhydramine HCl/Sucrose/ Microcrystalline Cellulose/Barcode (Decadron Conc Soln/Mycostatin Susp/Benadryl Syrup/Ora-Sweet Syrup/Ora-Plus Susp. Vehicle) Q6H PRN PO 03/23/17 11:45 04/22/17 11:44 03/23/17 12:46 5 ML Gabapentin (Neurontin) 150 mg DAILY@1400 PO 03/24/17 14:00 04/23/17 13:59 03/25/17 16:03 150 MG Ethacrynic Acid (Edecrin Tab) 75 mg DAILY PO 03/25/17 08:00 04/24/17 07:59 03/26/17 09:06 75 MG Cholecalciferol (Vitamin D Tab) 1,000 inter.unit QAM PO 03/26/17 08:00 04/25/17 07:59 03/26/17 09:08 1,000 INTER.UNIT Al Hydroxide/Mg Hydroxide (Maalox Susp) 15 ml Q6H PRN PO 03/25/17 17:00 04/24/17 16:59 03/25/17 21:02 15 ML Objective Vital Signs Date Time Temp Pulse Resp B/P Pulse Ox O2 Delivery O2 Flow Rate FiO2 03/26/17 09:30 100 99/97 03/26/17 08:26 37.6 90 18 103/63 96 Room Air 03/26/17 08:00 Room Air 03/26/17 00:00 97 Room Air 03/25/17 16:00 Room Air 03/25/17 15:52 37.7 87 17 107/68 97 Physical Exam General Appearance: no apparent distress Eyes: normal inspection, EOMI ENT: normal ENT inspection, hearing grossly normal Neck: supple Respiratory/Chest: chest non-tender, lungs clear, normal breath sounds, no respiratory distress Cardiovascular: regular rate, rhythm, no edema, no gallop, no JVD Abdomen: normal bowel sounds, no organomegaly, no pulsatile mass, + tenderness Extremities: normal range of motion, non-tender, normal inspection, no pedal edema, no calf tenderness Neurologic/Psychiatric: 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 as tested, no motor/sensory deficits, alert, normal mood/affect, oriented x 3 Skin: normal color, warm/dry, no rash Laboratory Results Last 24 Hours Test 03/26/17 06:33 White Blood Count 12.56 K/uL Red Blood Count 3.34 M/uL Hemoglobin 8.9 g/dL Hematocrit 28.1 % Mean Corpuscular Volume 84.1 fL Mean Corpuscular Hemoglobin 26.6 pg Mean Corpuscular Hemoglobin Concent 31.7 g/dl Platelet Count 375 K/uL Mean Platelet Volume 9.1 fL RDW Standard Deviation 49.1 fL RDW Coefficient of Variation 16.0 % Neutrophils % (Manual) 61.8 % Lymphocytes % (Manual) 17.4 % Monocytes % (Manual) 7.8 % Eosinophils % (Manual) 1.7 % Metamyelocytes % 7.8 % Myelocytes % 3.5 % Neutrophils # (Manual) 7.76 K/uL Total Absolute Neutrophils 7.76 K/uL Lymphocytes # (Manual) 2.19 K/uL Total Absolute Lymphocytes 2.19 K/uL Monocytes # (Manual) 0.98 K/uL Eosinophils # (Manual) 0.21 K/uL Metamyelocytes # 0.98 K/uL Myelocytes # 0.44 K/uL Toxic Granulation 3+ Sodium Level 130 mmol/L Potassium Level 4.1 mmol/L Chloride Level 97 mmol/L Carbon Dioxide Level 24 mmol/L Anion Gap 9.0 mmol/L Blood Urea Nitrogen 17 mg/dl Creatinine 1.40 mg/dl Est Creatinine Clear Calc Drug Dose 32.4 ml/min Estimated GFR () 40.7 Estimated GFR (Non- 35.1 BUN/Creatinine Ratio 11.9 Random Glucose 90 mg/dl Calcium Level 8.1 mg/dl Phosphorus Level 2.6 mg/dl Magnesium Level 1.8 mg/dl Total Bilirubin 0.6 mg/dl Aspartate Amino Transf (AST/SGOT) 29 U/L Alanine Aminotransferase (ALT/SGPT) 29 U/L Alkaline Phosphatase 75 U/L Total Protein 5.7 gm/dl Albumin 2.2 gm/dl Globulin 3.5 gm/dl Albumin/Globulin Ratio 0.6 Assessment and Plan Septic shock 2nd to c. diff colitis - shock resolved C. diff colitis - severe - ileus resolved on imaging. Consult ID and GI appreciated . Continue Vanco po QID at 250 mg x 2 weeks. / Surgery consulted. Agreed with conservative management, . Pt refusing any surgery at this time unless it is life saving which is not the case but will reassess if worsening condition Generalized weakness likely secondary to deconditioning, low vit D of 21 / will add supplement, might also be secondary to Neurontin increase Neuropathy bilateral feet starting last night. possible metronidazole which can cause. stopped flagyl. increased gabapentin to original dose, morphine not helping. 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 Acute renal failure 2nd to ATN in setting of #1 - resolved. Cr stable. CKD stage 3 - stable and at baseline. Acute/chronic diastolic CHF stable, no exacerbation noted restart ethacrynic acid as per patient's request Anemia of chronic disease +/- iron deficiency - stop PO iron for now. She is very nauseous with oral meds. Gastroparesis - continue domperidone. GI added Emend today. Appreciate their input Back pain/deconditioning - lidoderm patches prn. PT/OT evals Cramps in legs - being made worse by hypokalemia; iron def can contribute as well. Mirapex didn't seem to help. Add low dose gabapentin. possible UTI with no urinary symptoms, could be bacteriuria , consider treating after C diff is under control and diarrhea resolves Continued [facility] stay due to: inadequate po fluid intake, inadequate oral pain control, voiding difficulties, ambulation difficulties Discharge planning: uncertain
[2017-03-26] MEDS: METRONIDAZOLE / NSS 500 MG in PREMIXED NSS 100 ML IV SCH ×2 (13:40→21:10)
[2017-03-26] MEDS: GABAPENTIN 250 MG/5 ML 470 ML BTL PO SCH (14:38)
[2017-03-26 16:07] VITALS: BP 115/61; PULSE 90; TEMP 37.3; O2SAT 96
[2017-03-26 21:00] VITALS: BP 110/60; PULSE 76
[2017-03-26] MEDS: PRAMIPEXOLE DIHYDROCHLORIDE 0.25MG TAB PO SCH ×2 (21:11→21:20)
[2017-03-26] MEDS: ATORVASTATIN 20 MG TAB PO SCH (21:12)
[2017-03-26] MEDS: LISINOPRIL 10 MG TAB PO SCH (21:13)
[2017-03-26] MEDS: FLUTICASONE PROPIONATE NA SPR 16 GM BTL NAE SCH (21:13)
[2017-03-26 22:40] VITALS: BP 109/69; PULSE 56; TEMP 37.1; O2SAT 98
[2017-03-26] MEDS: HYDROCODONE/ACETAMOPHEN 5/325MG TAB PO PRN (23:51)
[2017-03-27 06:07] LABS: MEAN CELL VOLUME 83.3 fL (80-100); MEAN CORPUSCULAR HEMOGLOBIN 26.9 pg (25-34); MEAN CORPUSCULAR HGB CONC 32.2 g/dl (32-36); MEAN PLATELET VOLUME 8.6 fL (7.4-10.4); PLATELET COUNT 333 K/uL (130-400); RED BLOOD COUNT 3.24 M/uL (4.2-5.4); WHITE BLOOD COUNT 9.85 K/uL (4.8-10.8)
[2017-03-27 06:38] LABS: BUN/CREATININE RATIO 13.4 (10-20); CALCIUM 7.9 mg/dl (8.5-10.1); CREATININE 1.3 mg/dl (0.60-1.20); POTASSIUM 4.1 mmol/L (3.5-5.1)
[2017-03-27 06:41] LABS: ALB/GLOB RATIO 0.6 (0.9-2); PHOSPHORUS 2.9 mg/dl (2.5-4.9)
[2017-03-27] MEDS: METRONIDAZOLE / NSS 500 MG in PREMIXED NSS 100 ML IV SCH ×4 (07:16→23:27)
[2017-03-27] MEDS: DOMPERIDONE 10 MG PO SCH ×4 (07:17→22:50)
[2017-03-27 07:18] LABS: BASO ABS # 0.18 K/uL (0-0.2); BASOPHIL % 1.8 %; COMPLETE YES; EOSINOPHIL % 0.9 %; LYMPH ABS # 1.64 K/uL (1.2-3.4); LYMPHOCYTE % 16.7 %; META ABS # 0.34 K/uL (0-0); METAMYELOCYTE % 3.5 %; NEUTROPHILS % 68.3 %; TOXIC GRANULATION 3+
[2017-03-27 07:49] VITALS: BP 110/66; PULSE 83; TEMP 37.3; O2SAT 97
[2017-03-27] MEDS: BOOST BREEZE NUTRITION DRINK 1 BOX PO SCH ×2 (08:00→20:00)
[2017-03-27] MEDS: LORATADINE 10 MG TAB PO SCH (08:36)
[2017-03-27] MEDS: VANCOMYCIN HCL 250 MG/5 ML SOLN PO SCH ×4 (08:37→22:11)
[2017-03-27] MEDS: METOPROLOL TARTRATE 25 MG TAB PO SCH (08:37)
[2017-03-27] MEDS: METHIMAZOLE 5 MG TAB PO SCH (08:37)
[2017-03-27] MEDS: RASPBERRY SYRUP 5 ML UDP PO SCH ×4 (08:37→22:11)
[2017-03-27] MEDS: GABAPENTIN 100 MG CAP PO SCH ×2 (08:37→22:11)
[2017-03-27] MEDS: CHOLECALCIFEROL 1000 INTER.UNIT TAB PO SCH (08:37)
[2017-03-27] MEDS: CEROVITE ADV FORMULA TAB PO SCH (08:37)
[2017-03-27] MEDS: ETHACRYNIC ACID 25 MG TAB PO SCH (08:37)
[2017-03-27] MEDS: HEPARIN SOD 5000 UNIT/0.5 ML CARP SQ SCH ×2 (08:51→22:18)
[2017-03-27] MEDS: GABAPENTIN 250 MG/5 ML 470 ML BTL PO SCH (14:02)
[2017-03-27 14:59] VITALS: BP 98/64; PULSE 76; TEMP 37.4; O2SAT 96
--- NOTE | 2017-03-27 17:10 | Progress Note ---
Subjective Date of Service: March 27, 2017. Subjective Pt evaluation today including: conversation w/ patient, physical exam, chart review, lab review, review of inpatient medication list Problem List Medical Problems: (1) Abdominal pain Status: Acute (2) Hypotension Status: Acute (3) Ischemic colitis Status: Acute (4) Rectal bleed Status: Acute Review of Systems Constitutional: No chills, No fatigue, No fever, No problem reported, No see HPI, No sweats, No weakness, No weight loss Eyes: No diplopia, No discharge, No eye pain, No problem reported, No redness, No see HPI, No worsening of vision ENT: No dental problems, No hearing loss, No nasal symptoms, No problem reported, No see HPI, No sore throat, No tinnitus, No trouble swallowing, No unusual epistaxis Respiratory: No cough, No dyspnea at rest, No dyspnea on exertion, No hemoptysis, No problem reported, No see HPI, No shortness of breath, No sputum, No wheezing Cardiac: No PND, No chest pain, No claudication, No edema, No orthopnea, No palpitations, No problem reported, No see HPI Abdomen: No GI bleeding, No constipation, No diarrhea, No nausea, No pain, No problem reported, No see HPI, No vomiting Musculoskeletal: No calf pain, No joint pain, No muscle pain, No problem reported, No see HPI, No swelling Neurologic: No balance problems, No memory loss, No numbness/tingling, No paralysis, No problem reported, No see HPI, No vertigo, No weakness Psychiatric: No anhedonism, No anxiety, No depression symptoms, No insomnia, No problem reported, No see HPI, No substance abuse Heme: No abnormal bleeding/bruising, No clotting problems, No night sweats, No problem reported, No see HPI, No swollen lymph nodes Endo: No excessive thirst, No excessive urination, No fatigue, No problem reported, No see HPI Skin: No bleeding, No color change, No itch, No new/changing skin lesions, No problem reported, No rash, No see HPI Medications Current Inpatient Medications Medications (Trade) Dose Ordered Sig/[place] Route Start Time Stop Time Status Last Admin Dose Admin Methimazole (Methimazole Tab) 2.5 mg QAM PO 03/12/17 09:00 04/11/17 08:59 03/27/17 08:37 2.5 MG Atorvastatin Calcium (Lipitor Tab) 20 mg HS PO 03/13/17 21:00 04/12/17 20:59 03/26/17 21:12 20 MG Acetaminophen (Tylenol Tab) 650 mg Q4H PRN PO 03/12/17 07:15 04/11/17 07:14 Ondansetron HCl (Zofran Inj) 4 mg Q6H PRN IV 03/12/17 07:15 04/11/17 07:14 03/21/17 08:46 4 MG Raspberry (Raspberry Syrup 5ml Cup) 5 ml QID PO 03/12/17 09:00 03/31/17 16:59 03/27/17 12:04 5 ML Heparin Sodium (Porcine) (Heparin Sq 5000 Unit/0.5ml) 5,000 unit Q12 SQ 03/12/17 21:00 04/11/17 20:59 03/27/17 08:51 5,000 UNIT Heparin Sodium (Porcine) (Heparin 10 Unit/ ml 5 ml Flush) 5 ml PRN PRN FLUSH 03/13/17 01:30 04/12/17 01:29 03/27/17 05:45 10 ML Domperidone Maleate (Domperidone) 10 mg ACHS PO 03/14/17 16:15 04/13/17 16:14 03/27/17 16:11 10 MG Folic Acid (Folvite Tab) 1 mg QAM PO 03/14/17 16:15 04/13/17 16:14 03/27/17 08:37 1 MG Tramadol HCl (Ultram Tab) 50 mg Q6H PRN PO 03/15/17 12:00 04/14/17 11:59 03/18/17 03:39 50 MG Acetaminophen/ Hydrocodone Bitart ([place] 5/325 Tab) 0.5 tab Q6H PRN PO 03/15/17 13:30 03/29/17 13:29 03/26/17 23:51 0.5 TAB Pramipexole Dihydrochloride (miraPEX TAB) 0.25 mg HS PO 03/16/17 21:00 04/15/17 20:59 03/24/17 21:32 0.25 MG Lisinopril (Zestril Tab) 10 mg HS PO 03/16/17 21:00 04/15/17 20:59 03/26/17 21:13 10 MG Pantoprazole Sodium (Protonix Tab) 40 mg DAILY PO 03/18/17 08:00 04/17/17 07:59 Future Hold 03/21/17 09:44 40 MG Enteral Nutritional Formula (Boost Breeze Nutritional Drink) 1 box BID PO 03/17/17 20:00 04/16/17 19:59 Loratadine (Claritin Tab) 10 mg QAM PO 03/19/17 08:00 04/18/17 07:59 03/27/17 08:36 10 MG Fluticasone Propionate (Flonase Nasal [place]) 2 sprays HS ROBIN 03/18/17 23:00 04/17/17 22:59 03/26/17 21:13 2 SPRAYS Colchicine (Colchicine Tab) 0.6 mg DAILY PO 03/20/17 08:00 04/19/17 07:59 Future Hold 03/21/17 09:44 0.6 MG Multivitamins/ Minerals (Multivitamin W/ Minerals Tab) 1 tab QAM PO 03/21/17 08:00 04/20/17 07:59 03/27/17 08:37 1 TAB Vancomycin HCl (Vancomycin Oral Soln) 250 mg QID PO 03/21/17 17:00 03/31/17 16:59 03/27/17 12:04 250 MG Metoprolol Tartrate (Lopressor Tab) 25 mg QAM PO 03/23/17 08:00 04/22/17 07:59 03/27/17 08:37 25 MG Prednisone (PredniSONE TAB) 5 mg DAILY PO 03/23/17 08:00 04/22/17 07:59 03/27/17 08:37 5 MG Simethicone (Mylicon Chew Tab) 80 mg Q6H PRN PO 03/22/17 12:45 04/21/17 12:44 03/22/17 14:41 80 MG Gabapentin 100 mg BID PO 03/23/17 20:00 04/22/17 19:59 03/27/17 08:37 100 MG Dexamethasone/ Nystatin/ Diphenhydramine HCl/Sucrose/ Microcrystalline Cellulose/Barcode (Decadron Conc Soln/Mycostatin Susp/Benadryl Syrup/Ora-Sweet Syrup/Ora-Plus Susp. Vehicle) Q6H PRN PO 03/23/17 11:45 04/22/17 11:44 03/23/17 12:46 5 ML Gabapentin (Neurontin) 150 mg DAILY@1400 PO 03/24/17 14:00 04/23/17 13:59 03/27/17 14:02 150 MG Ethacrynic Acid (Edecrin Tab) 75 mg DAILY PO 03/25/17 08:00 04/24/17 07:59 03/27/17 08:37 75 MG Cholecalciferol (Vitamin D Tab) 1,000 inter.unit QAM PO 03/26/17 08:00 04/25/17 07:59 03/27/17 08:37 1,000 INTER.UNIT Al Hydroxide/Mg Hydroxide 15 ml 15 ml Q6H PRN PO 03/25/17 17:00 04/24/17 16:59 03/25/17 21:02 15 ML Metronidazole/Prmx (Flagyl / Nss/ Premixed Nss) 100 ml @ 100 mls/hr Q8H IV 03/26/17 14:00 04/05/17 13:59 Objective Vital Signs Date Time Temp Pulse Resp B/P Pulse Ox O2 Delivery O2 Flow Rate FiO2 03/27/17 14:59 37.4 76 20 98/64 96 Room Air 03/27/17 08:00 Room Air 03/27/17 07:49 37.3 83 20 110/66 97 Room Air 03/26/17 23:59 Room Air 03/26/17 22:40 37.1 56 18 109/69 98 Room Air 03/26/17 21:00 76 110/60 03/26/17 20:00 Room Air Physical Exam General Appearance: WD/WN, no apparent distress Eyes: normal inspection, EOMI ENT: normal ENT inspection, hearing grossly normal Neck: supple, no adenopathy Respiratory/Chest: chest non-tender, lungs clear, normal breath sounds, no respiratory distress, no accessory muscle use Cardiovascular: regular rate, rhythm, no edema, no gallop, no JVD, no murmur Abdomen: normal bowel sounds, non tender, soft, no organomegaly Extremities: normal range of motion, non-tender, normal inspection, no pedal edema Neurologic/Psychiatric: 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 as tested, no motor/sensory deficits, alert, normal mood/affect, oriented x 3 Skin: normal color, warm/dry, no rash Laboratory Results Last 24 Hours Test 03/27/17 05:50 White Blood Count 9.85 K/uL Red Blood Count 3.24 M/uL Hemoglobin 8.7 g/dL Hematocrit 27.0 % Mean Corpuscular Volume 83.3 fL Mean Corpuscular Hemoglobin 26.9 pg Mean Corpuscular Hemoglobin Concent 32.2 g/dl Platelet Count 333 K/uL Mean Platelet Volume 8.6 fL RDW Standard Deviation 48.3 fL RDW Coefficient of Variation 15.9 % Neutrophils % (Manual) 68.3 % Lymphocytes % (Manual) 16.7 % Monocytes % (Manual) 8.8 % Eosinophils % (Manual) 0.9 % Basophils % (Manual) 1.8 % Metamyelocytes % 3.5 % Neutrophils # (Manual) 6.73 K/uL Total Absolute Neutrophils 6.73 K/uL Lymphocytes # (Manual) 1.64 K/uL Total Absolute Lymphocytes 1.64 K/uL Monocytes # (Manual) 0.87 K/uL Eosinophils # (Manual) 0.09 K/uL Basophils # (Manual) 0.18 K/uL Metamyelocytes # 0.34 K/uL Toxic Granulation 3+ Sodium Level 130 mmol/L Potassium Level 4.1 mmol/L Chloride Level 96 mmol/L Carbon Dioxide Level 26 mmol/L Anion Gap 8.0 mmol/L Blood Urea Nitrogen 17 mg/dl Creatinine 1.30 mg/dl Est Creatinine Clear Calc Drug Dose 34.9 ml/min Estimated GFR () 44.6 Estimated GFR (Non- 38.4 BUN/Creatinine Ratio 13.4 Random Glucose 78 mg/dl Calcium Level 7.9 mg/dl Phosphorus Level 2.9 mg/dl Magnesium Level 2.0 mg/dl Total Bilirubin 0.5 mg/dl Aspartate Amino Transf (AST/SGOT) 31 U/L Alanine Aminotransferase (ALT/SGPT) 30 U/L Alkaline Phosphatase 68 U/L Total Protein 5.4 gm/dl Albumin 2.0 gm/dl Globulin 3.4 gm/dl Albumin/Globulin Ratio 0.6 Assessment and Plan Septic shock 2nd to c. diff colitis - shock resolved C. diff colitis - severe - ileus resolved on imaging. Consult ID and GI appreciated . WBC count is improving, diarrhea frequency is improving Continue Vanco po QID at 250 mg x 2 weeks. / needs a gradual dose reduction after that Surgery consulted. Agreed with conservative management, . Pt refusing any surgery at this time unless it is life saving which is not the case but will reassess if worsening condition Generalized weakness likely secondary to deconditioning, low vit D of 21 / will add supplement, might also be secondary to Neurontin increase Neuropathy bilateral feet starting last night. possible metronidazole which can cause. stopped flagyl. increased gabapentin to original dose, morphine not helping. 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 Acute renal failure 2nd to ATN in setting of #1 - resolved. Cr stable. CKD stage 3 - stable and at baseline. Acute/chronic diastolic CHF stable, no exacerbation noted restart ethacrynic acid as per patient's request Anemia of chronic disease +/- iron deficiency - stop PO iron for now. She is very nauseous with oral meds. Gastroparesis - continue domperidone. GI added Emend today. Appreciate their input Back pain/deconditioning - lidoderm patches prn. PT/OT evals Cramps in legs - being made worse by hypokalemia; iron def can contribute as well. Mirapex didn't seem to help. Add low dose gabapentin. possible UTI with no urinary symptoms, could be bacteriuria , consider treating after C diff is under control and diarrhea resolves, will leave the decision up to ID team but she has no urinary symptoms. Continued [facility] stay due to: inadequate po fluid intake, inadequate oral pain control, voiding difficulties, ambulation difficulties Discharge planning: uncertain
[2017-03-27] MEDS: PRAMIPEXOLE DIHYDROCHLORIDE 0.25MG TAB PO SCH (22:00)
[2017-03-27] MEDS: FLUTICASONE PROPIONATE NA SPR 16 GM BTL NAE SCH (22:18)
[2017-03-27] MEDS: LISINOPRIL 10 MG TAB PO SCH (22:50)
[2017-03-27] MEDS: ATORVASTATIN 20 MG TAB PO SCH (22:50)
[2017-03-28 00:10] VITALS: BP 112/68; PULSE 76; TEMP 37.3; O2SAT 98
[2017-03-28] MEDS: ALUMINUM/MAGNESIUM SUSP 30 ML UDC PO PRN (05:43)
[2017-03-28 06:15] LABS: HEMATOCRIT 29.4 % (37-47); MEAN CELL VOLUME 83.8 fL (80-100); MEAN CORPUSCULAR HEMOGLOBIN 27.4 pg (25-34); MEAN CORPUSCULAR HGB CONC 32.7 g/dl (32-36); PLATELET COUNT 368 K/uL (130-400); RED BLOOD COUNT 3.51 M/uL (4.2-5.4); WHITE BLOOD COUNT 10.38 K/uL (4.8-10.8)
[2017-03-28 06:39] LABS: TOXIC GRANULATION 3+
[2017-03-28 06:45] LABS: BASO ABS # 0.09 K/uL (0-0.2); BASOPHIL % 0.9 %; LYMPH ABS # 0.72 K/uL (1.2-3.4); LYMPHOCYTE % 6.9 %; META ABS # 0.18 K/uL (0-0); METAMYELOCYTE % 1.7 %; NEUTROPHILS % 81.8 %
[2017-03-28 06:48] LABS: BUN/CREATININE RATIO 14.6 (10-20); CALCIUM 8.4 mg/dl (8.5-10.1); CREATININE 1.3 mg/dl (0.60-1.20)
--- NOTE | 2017-03-28 06:48 | Surgery Progress Note ---
Surgery Progress Note Date of Service March 28, 2017. Subjective no acute changes- VSS, loose/ soft bms E Coli UTI Objective Vital Signs: Date Time Temp Pulse Resp B/P Pulse Ox O2 Delivery O2 Flow Rate FiO2 03/28/17 01:30 Room Air 03/28/17 00:10 37.3 76 18 112/68 98 Room Air 03/27/17 16:00 Room Air 03/27/17 14:59 37.4 76 20 98/64 96 Room Air 03/27/17 08:00 Room Air 03/27/17 07:49 37.3 83 20 110/66 97 Room Air Laboratory Results: Results Past 24 Hours Test 03/28/17 05:50 Range/Units White Blood Count 10.38 4.8-10.8 K/uL Red Blood Count 3.51 4.2-5.4 M/uL Hemoglobin 9.6 12.0-16.0 g/dL Hematocrit 29.4 37-47 % Mean Corpuscular Volume 83.8 80-100 fL Mean Corpuscular Hemoglobin 27.4 25-34 pg Mean Corpuscular Hemoglobin Concent 32.7 32-36 g/dl Platelet Count 368 130-400 K/uL Mean Platelet Volume 9.0 7.4-10.4 fL RDW Standard Deviation 48.4 36.4-46.3 fL RDW Coefficient of Variation 15.9 11.5-14.5 % Toxic Granulation 3+ Assessment & Plan 03/28/17- Chart, progress reviewed- no evidence of toxic colitis. No plan for surgical intervention at this point. 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 She does not require urgent intervention- Dr Pierre covering over the weekend 03/23/17- see Tera Jones's note- options would involve ileostomy- either subtotal colectomy or loop ileostomy with colonic irrigation- both are not without significant morbidity and mortality. Currently her wbc is down w/o shift, afeb, HR nl, renal function improved. No evidence of toxic megacolon now- recent film showed no colonic distention. Will follow with you 03/25/17- Very poor mobility and very limited surgical options- ileostomy or diverting colostomy may improve her GI emptying , but she will not be able to care for stoma and would require prison nursing- discussion of future surgery makes her agitated and she flat out refuses. She does not require urgent intervention- Dr Pierre covering over the weekend 03/23/17- see Tera Jones's note- options would involve ileostomy- either subtotal colectomy or loop ileostomy with colonic irrigation- both are not without significant morbidity and mortality. Currently her wbc is down w/o shift, afeb, HR nl, renal function improved. No evidence of toxic megacolon now- recent film showed no colonic distention. Will follow with you
[2017-03-28 07:09] LABS: COMPLETE YES
[2017-03-28 07:12] VITALS: BP 96/54; PULSE 100; TEMP 37.6; O2SAT 96
[2017-03-28] MEDS: DOMPERIDONE 10 MG PO SCH ×4 (07:16→20:42)
[2017-03-28] MEDS: METOPROLOL TARTRATE 25 MG TAB PO SCH (07:26)
[2017-03-28] MEDS: BOOST BREEZE NUTRITION DRINK 1 BOX PO SCH ×2 (07:26→20:00)
[2017-03-28] MEDS: GABAPENTIN 100 MG CAP PO SCH ×2 (07:40→20:46)
[2017-03-28] MEDS: VANCOMYCIN HCL 250 MG/5 ML SOLN PO SCH ×4 (07:40→20:42)
[2017-03-28] MEDS: CEROVITE ADV FORMULA TAB PO SCH (07:40)
[2017-03-28] MEDS: CHOLECALCIFEROL 1000 INTER.UNIT TAB PO SCH (07:40)
[2017-03-28] MEDS: RASPBERRY SYRUP 5 ML UDP PO SCH ×4 (07:40→20:42)
[2017-03-28] MEDS: ETHACRYNIC ACID 25 MG TAB PO SCH (07:41)
[2017-03-28] MEDS: LORATADINE 10 MG TAB PO SCH (07:41)
[2017-03-28] MEDS: METHIMAZOLE 5 MG TAB PO SCH (07:41)
[2017-03-28] MEDS: HEPARIN SOD 5000 UNIT/0.5 ML CARP SQ SCH ×2 (07:46→20:39)
--- NOTE | 2017-03-28 10:46 | Gastroenterology Progress Note ---
Progress Note Date of Service: March 28, 2017 Subjective Pt evaluation today including: conversation w/ patient, physical exam Pt was seen and examined this AM. She is concerned with her inability to pass and gas or move her bowels x 12 hours. There is constant epigastric pain with intermittent episodes of radiation underneath bilateral breast. She denies lower abdominal pain or cramping. She is not agreeable to discharge to a rehab hospital or care home facility and tells me today she wishes to be transferred with a tertiary care center - due to the current stability of her conditions medically, I am unsure if this is medically necessary. No appetite this AM. Still working on taking her morning pills. 4 small loose BMs and 2 large loose BMs yesterday. No black or bloody stools. No BMs or flatus today. + weakness, reports inability to lift her head off the mattress. Review of Systems Constitutional: + fatigue, + weakness, No chills, No fever Respiratory: No cough, No shortness of breath Abdomen: + nausea, + pain, No GI bleeding, No constipation, No diarrhea, No dysphagia, No vomiting Medications Current Inpatient Medications Medications (Trade) Dose Ordered Sig/[place] Route Start Time Stop Time Status Last Admin Dose Admin Methimazole (Methimazole Tab) 2.5 mg QAM PO 03/12/17 09:00 04/11/17 08:59 03/28/17 07:41 2.5 MG Atorvastatin Calcium (Lipitor Tab) 20 mg HS PO 03/13/17 21:00 04/12/17 20:59 03/27/17 22:50 20 MG Acetaminophen (Tylenol Tab) 650 mg Q4H PRN PO 03/12/17 07:15 04/11/17 07:14 Ondansetron HCl (Zofran Inj) 4 mg Q6H PRN IV 03/12/17 07:15 04/11/17 07:14 03/21/17 08:46 4 MG Raspberry (Raspberry Syrup 5ml Cup) 5 ml QID PO 03/12/17 09:00 03/31/17 16:59 03/28/17 07:40 5 ML Heparin Sodium (Porcine) (Heparin Sq 5000 Unit/0.5ml) 5,000 unit Q12 SQ 03/12/17 21:00 04/11/17 20:59 03/28/17 07:46 5,000 UNIT Heparin Sodium (Porcine) (Heparin 10 Unit/ ml 5 ml Flush) 5 ml PRN PRN FLUSH 03/13/17 01:30 04/12/17 01:29 03/28/17 05:56 10 ML Domperidone Maleate (Domperidone) 10 mg ACHS PO 03/14/17 16:15 04/13/17 16:14 03/28/17 07:16 10 MG Folic Acid (Folvite Tab) 1 mg QAM PO 03/14/17 16:15 04/13/17 16:14 03/28/17 07:41 1 MG Tramadol HCl (Ultram Tab) 50 mg Q6H PRN PO 03/15/17 12:00 04/14/17 11:59 03/18/17 03:39 50 MG Acetaminophen/ Hydrocodone Bitart ([place] 5/325 Tab) 0.5 tab Q6H PRN PO 03/15/17 13:30 03/29/17 13:29 03/26/17 23:51 0.5 TAB Pramipexole Dihydrochloride (miraPEX TAB) 0.25 mg HS PO 03/16/17 21:00 04/15/17 20:59 03/24/17 21:32 0.25 MG Lisinopril (Zestril Tab) 10 mg HS PO 03/16/17 21:00 04/15/17 20:59 03/27/17 22:50 10 MG Pantoprazole Sodium (Protonix Tab) 40 mg DAILY PO 03/18/17 08:00 04/17/17 07:59 Future Hold 03/21/17 09:44 40 MG Enteral Nutritional Formula (Boost Breeze Nutritional Drink) 1 box BID PO 03/17/17 20:00 04/16/17 19:59 Loratadine (Claritin Tab) 10 mg QAM PO 03/19/17 08:00 04/18/17 07:59 03/28/17 07:41 10 MG Fluticasone Propionate (Flonase Nasal [place]) 2 sprays HS ROBIN 03/18/17 23:00 04/17/17 22:59 03/27/17 22:18 2 SPRAYS Colchicine (Colchicine Tab) 0.6 mg DAILY PO 03/20/17 08:00 04/19/17 07:59 Future Hold 03/21/17 09:44 0.6 MG Multivitamins/ Minerals (Multivitamin W/ Minerals Tab) 1 tab QAM PO 03/21/17 08:00 04/20/17 07:59 03/28/17 07:40 1 TAB Vancomycin HCl (Vancomycin Oral Soln) 250 mg QID PO 03/21/17 17:00 03/31/17 16:59 03/28/17 07:40 250 MG Metoprolol Tartrate (Lopressor Tab) 25 mg QAM PO 03/23/17 08:00 04/22/17 07:59 03/27/17 08:37 25 MG Prednisone (PredniSONE TAB) 5 mg DAILY PO 03/23/17 08:00 04/22/17 07:59 03/28/17 07:40 5 MG Simethicone (Mylicon Chew Tab) 80 mg Q6H PRN PO 03/22/17 12:45 04/21/17 12:44 03/22/17 14:41 80 MG Gabapentin 100 mg BID PO 03/23/17 20:00 04/22/17 19:59 03/28/17 07:40 100 MG Dexamethasone/ Nystatin/ Diphenhydramine HCl/Sucrose/ Microcrystalline Cellulose/Barcode (Decadron Conc Soln/Mycostatin Susp/Benadryl Syrup/Ora-Sweet Syrup/Ora-Plus Susp. Vehicle) Q6H PRN PO 03/23/17 11:45 04/22/17 11:44 03/23/17 12:46 5 ML Gabapentin (Neurontin) 150 mg DAILY@1400 PO 03/24/17 14:00 04/23/17 13:59 03/27/17 14:02 150 MG Ethacrynic Acid (Edecrin Tab) 75 mg DAILY PO 03/25/17 08:00 04/24/17 07:59 03/28/17 07:41 75 MG Cholecalciferol (Vitamin D Tab) 1,000 inter.unit QAM PO 03/26/17 08:00 04/25/17 07:59 03/28/17 07:40 1,000 INTER.UNIT Al Hydroxide/Mg Hydroxide 15 ml 15 ml Q6H PRN PO 03/25/17 17:00 04/24/17 16:59 03/28/17 05:43 15 ML Metronidazole/Prmx (Flagyl / Nss/ Premixed Nss) 100 ml @ 100 mls/hr Q8H IV 03/26/17 14:00 04/05/17 13:59 Objective Vital Signs Date Time Temp Pulse Resp B/P Pulse Ox O2 Delivery O2 Flow Rate FiO2 03/28/17 08:15 Room Air 03/28/17 07:12 37.6 100 20 96/54 96 Room Air 03/28/17 01:30 Room Air 03/28/17 00:10 37.3 76 18 112/68 98 Room Air 03/27/17 16:00 Room Air 03/27/17 14:59 37.4 76 20 98/64 96 Room Air Physical Exam General Appearance: no apparent distress Eyes: PERRL ENT: hearing grossly normal Neck: supple, trachea midline Respiratory/Chest: lungs clear, + decreased breath sounds (at bases) Cardiovascular: regular rate, rhythm, no gallop Abdomen: non tender, soft, no organomegaly, no pulsatile mass, + abnormal bowel sounds (hypoactive x 4 quadrants) Neurologic/Psych: alert, normal mood/affect, oriented x 3 Skin: normal color, no jaundice, warm/dry, no rash Laboratory Results Last 24 Hours Test 03/28/17 05:50 White Blood Count 10.38 K/uL Red Blood Count 3.51 M/uL Hemoglobin 9.6 g/dL Hematocrit 29.4 % Mean Corpuscular Volume 83.8 fL Mean Corpuscular Hemoglobin 27.4 pg Mean Corpuscular Hemoglobin Concent 32.7 g/dl Platelet Count 368 K/uL Mean Platelet Volume 9.0 fL RDW Standard Deviation 48.4 fL RDW Coefficient of Variation 15.9 % Neutrophils % (Manual) 81.8 % Lymphocytes % (Manual) 6.9 % Monocytes % (Manual) 7.8 % Basophils % (Manual) 0.9 % Metamyelocytes % 1.7 % Blast Cells % 0.9 % Neutrophils # (Manual) 8.49 K/uL Total Absolute Neutrophils 8.49 K/uL Lymphocytes # (Manual) 0.72 K/uL Total Absolute Lymphocytes 0.72 K/uL Monocytes # (Manual) 0.81 K/uL Basophils # (Manual) 0.09 K/uL Metamyelocytes # 0.18 K/uL Blast Cells # 0.09 K/uL Blood Smear Review Toxic Granulation 3+ Sodium Level 130 mmol/L Potassium Level 4.0 mmol/L Chloride Level 95 mmol/L Carbon Dioxide Level 26 mmol/L Anion Gap 9.0 mmol/L Blood Urea Nitrogen 19 mg/dl Creatinine 1.30 mg/dl Est Creatinine Clear Calc Drug Dose 34.9 ml/min Estimated GFR () 44.6 Estimated GFR (Non- 38.4 BUN/Creatinine Ratio 14.6 Random Glucose 82 mg/dl Calcium Level 8.4 mg/dl Assessment and Plan Ms. Phoenix is an 81 yr old female admitted with C-diff sepsis and ileus, clinically improving. Pt with UTI (abx on hold due to c.diff and closely monitoring s/s). Today she reports inability to pass stool or flatus and epigastric pain and worsening neuropathy. Encouraged ambulation and OOB Continue Vanco po QID at 250 mg x 2 weeks Will plan for a tapering course of vanco as suggested by ID If no improvement will discuss dificid and stool transplant KUB 03/28/17 Hold narcotics Continue pureed diet - suggest she backs down to clear liquids but may have pureed if she wishes Pepcid IV x 2 doses Hold PPI - may cause diarrhea Hold mag - may cause diarrhea Recommended holding domperidone as can exacerbate diarrhea, but patient refused that Hold Questran - caused GI distress Simethicone as needed for gas Avoid dairy Attg addendum: I interviewed and examined pt, reviewed chart and labs. She reports having sporadic stool output and some epigastric burning. SHe reports nausea with attempts at PO. Pt overall appears improved to me from when I saw her last week. Her abd is soft and nontender to my exam. C diff - Clinically she appears improved - her abd exam is benign, her vs have been stable, and her WBC has improved. Cont tapering vanco, follow. Dysmotility - She should be on scheduled domperidone. I don't think that laxatives are necessary at this time. Will cont serial exam and periodic KUB. Nutrition - This is her most pressing issue. She is hypoalbuminemic, and reports markedly poor pO intake, which may in part be due to depression, GERD, and dysmotility. Will continue her Reglan, encourage full liquids, and monitor PO intake. May consider Marinol to encourage PO. Deconditioning - Encouraged PT, defer to hospitalist Blasts reported on CBC - defer to hospitalist, but would consider heme consult. I presume that this is reactive, due to steroids and C diff. Primary team watching suspected UTI - Zosyn not started yet GI will follow. Please call with questions.
[2017-03-28] MEDS: FAMOTIDINE IV INJ 20 MG in DEXTROSE 5% 100ML 100 ML IV SCH ×2 (10:58→22:40)
[2017-03-28] MEDS: METRONIDAZOLE / NSS 500 MG in PREMIXED NSS 100 ML IV SCH ×2 (13:47→20:40)
[2017-03-28] MEDS: GABAPENTIN 250 MG/5 ML 470 ML BTL PO SCH (13:47)
[2017-03-28 16:01] VITALS: BP 97/58; PULSE 89; TEMP 37.4; O2SAT 97
--- NOTE | 2017-03-28 16:08 | DIAGNOSTIC IMAGING REPORT ---
KUB CLINICAL HISTORY: inability to pass gas, abdominal pain, measure dilation if perse COMPARISON STUDY: No previous studies for comparison. FINDINGS: The soft tissues, psoas shadows, renal outlines and intestinal gas pattern appear normal. There is no evidence for bowel obstruction. No abnormal abdominal calcifications are seen. IMPRESSION: Normal study. No evidence of bowel distention. Electronically signed by: Donte Mar M.D. 03/28/2017 4:06 PM Dictated Date/Time: 03/28/2017 4:06 PM
--- NOTE | 2017-03-28 16:17 | Medical Student: [facility] ---
Med Student Progress Note Date of Service March 28, 2017. Subjective Pt evaluation today including: conversation w/ patient Voiding: william catheter in place Ms Mariangel Phoenix is an 81 yo female on hospital day 16 for persistent c.diff colitis. This is her fourth c.diff infection. She states she is worsening each day, and she no longer has the strength to lift her head from the pillow. She had one large loose bowel movement this morning, and had 6 yesterday. 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 This has caused her to become nauseated as food sits in her stomach, despite being on a pureed diet. She has not eaten since yesterday, and attributes her weakness to her inability to keep any food down. Additionally, she developed a neuropathy while taking metronidazole, and it has since been discontinued. She notes worsening neuropathic pain daily. Review of Systems Constitutional: + fatigue, + weakness, No chills, No fever, No sweats, No weight loss Eyes: No problem reported ENT: No problem reported Respiratory: No problem reported Cardiac: No problem reported Breast: No problem reported Abdomen: + diarrhea, + nausea, + pain, + see HPI, + vomiting, No GI bleeding Musculoskeletal: No problem reported Neurologic: No problem reported Psychiatric: + problem reported ("getting down but keeping head up") Heme: No problem reported Endo: No problem reported Skin: No problem reported Objective Vital Signs Date Time Temp Pulse Resp B/P Pulse Ox O2 Delivery O2 Flow Rate FiO2 03/28/17 08:15 Room Air 03/28/17 07:12 37.6 100 20 96/54 96 Room Air 03/28/17 01:30 Room Air 03/28/17 00:10 37.3 76 18 112/68 98 Room Air 03/27/17 16:00 Room Air Physical Exam General Appearance: WD/WN, + mild distress Eyes: bilateral eyes EOMI, bilateral eyes PERRL, bilateral eyes normal inspection ENT: normal ENT inspection, hearing grossly normal, pharynx normal Neck: supple, no adenopathy, no JVD, no carotid bruits, trachea midline Respiratory/Chest: chest non-tender, lungs clear, no respiratory distress, no accessory muscle use, + decreased breath sounds Cardiovascular: regular rate, rhythm, no edema, no gallop, no JVD, no murmur Abdomen: non tender, soft, + abnormal bowel sounds (absent), + pertinent finding (tympanic, distended. ) Extremities: no pedal edema, no calf tenderness, + pertinent finding (range of motion limited by fatigue. 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, no motor/sensory deficits, alert, oriented x 3 Skin: normal color, warm/dry Lymphatic: no adenopathy Laboratory Results Last 24 Hours Test 03/28/17 05:50 White Blood Count 10.38 K/uL Red Blood Count 3.51 M/uL Hemoglobin 9.6 g/dL Hematocrit 29.4 % Mean Corpuscular Volume 83.8 fL Mean Corpuscular Hemoglobin 27.4 pg Mean Corpuscular Hemoglobin Concent 32.7 g/dl Platelet Count 368 K/uL Mean Platelet Volume 9.0 fL RDW Standard Deviation 48.4 fL RDW Coefficient of Variation 15.9 % Neutrophils % (Manual) 81.8 % Lymphocytes % (Manual) 6.9 % Monocytes % (Manual) 7.8 % Basophils % (Manual) 0.9 % Metamyelocytes % 1.7 % Blast Cells % 0.9 % Neutrophils # (Manual) 8.49 K/uL Total Absolute Neutrophils 8.49 K/uL Lymphocytes # (Manual) 0.72 K/uL Total Absolute Lymphocytes 0.72 K/uL Monocytes # (Manual) 0.81 K/uL Basophils # (Manual) 0.09 K/uL Metamyelocytes # 0.18 K/uL Blast Cells # 0.09 K/uL Blood Smear Review Toxic Granulation 3+ Sodium Level 130 mmol/L Potassium Level 4.0 mmol/L Chloride Level 95 mmol/L Carbon Dioxide Level 26 mmol/L Anion Gap 9.0 mmol/L Blood Urea Nitrogen 19 mg/dl Creatinine 1.30 mg/dl Est Creatinine Clear Calc Drug Dose 34.9 ml/min Estimated GFR () 44.6 Estimated GFR (Non- 38.4 BUN/Creatinine Ratio 14.6 Random Glucose 82 mg/dl Calcium Level 8.4 mg/dl Assessment and Plan Assessment and Plan: Ms Mariangel Phoenix is an 81 yo female with multiple chronic medical conditions including CHF, scleroderma, Stage III CKD among others who is on hospital day 16 for complicated c. diff colitis. Individual assessment and plans are as follows: 1. C.diff colitis: Persistent, severe. Patient has been on vancomycin since admission and continues to have diarrhea. Diarrhea seems to be worse with more physical activity, likely due to gastroparesis from sclerodema. She has one large loose BM today so far. Will continue on vacomycin 250mg po qid until taper started by ID. Metronidazole refused by patient due to concerns over neuropathy. ID and GI consulted, continue to appreciate recommendations. White count holding within normal range x2 days. 2. Gastroparesis: Persistent, chronic. Secondary to scleroderma. Will continue Domperidone and Emend with each meal to aid with gastric motility. Ileus resolved on KUB. Will continue to watch. Surgery following and not recommending surgery at this time. Patient does not wish surgery unless "life or ". 3. Scleroderma: Chronic. Chronically on 5mg prednisone daily. Will continue to taper back down to 5mg dose. 4. Chronic Kidney Disease, Stage III. Chronic. BUN and Creatinine currently stable. Will continue to periodically check kidney function. ATN earlier in hospital stay now resolved. 5. Acute/Chronic diastolic CHF: Chronic, stable. Fluid status currently well controlled. Patient takes ethacrynic acid daily to aid with diuresis. 6. Back pain: Continue with lidoderm patch, PT/OT. Tramadol 50mg and [place] 5/ 325 q6 prn. 7. UTI: Asymptomatic. William in place. E. coli on culture. Will continue to hold off on treating at this time until diarrhea stops, as additional abx may worsen c. diff colitis at this time. 8. Generalized weakness: Likely due to deconditioning x 16 days, malnutrition. Will continue to encourage cooperation with PT/OT, encourage food as able. 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 On gabapentin 150mg daily, will consider doubling to 300 as pain continues to increase. Noted thiamine and folate deficiencies. Will repleat IV. 10. Anemia of chronic disease: Iron deficient. Will continue to hold PO iron, d/ t nausea. 11. Restless leg: Pramipexole .25mg daily. 12. Seasonal Allergies: Loratadine 10mg and fluticasone nasal spray. 13. Blast cells on CBC: Spoke with pathologist who notes this is likely artifact of left shift, not a neoplastic process. However, he recommends continuing to trend. 14. DVT Prophylaxis: Continue heparin 5000units sq a 12. 15. Disposition: Continued admission due to IV meds, continued diarrhea, deconditioning. Pureed diet. Continued [facility] stay due to: inadequate po fluid intake, inadequate oral pain control, voiding difficulties, ambulation difficulties Discharge planning: [facility] facility (Possibly [facility], bed will be available Tuesday at earliest), uncertain
[2017-03-28] MEDS ORDERED: CEROVITE ADV FORMULA TAB PO SCH (18:00)
[2017-03-28] MEDS: FoLIC ACID INJ 1 MG in SYRINGE 9.8 ML IV SCH (18:43)
[2017-03-28 20:30] VITALS: BP 96/62; PULSE 78
[2017-03-28] MEDS: FLUTICASONE PROPIONATE NA SPR 16 GM BTL NAE SCH (20:41)
[2017-03-28] MEDS: PRAMIPEXOLE DIHYDROCHLORIDE 0.25MG TAB PO SCH (20:43)
[2017-03-28] MEDS: ATORVASTATIN 20 MG TAB PO SCH (20:44)
[2017-03-28] MEDS: LISINOPRIL 10 MG TAB PO SCH ×2 (20:45→22:00)
[2017-03-28 21:39] LABS: URINE APPEARANCE CLEAR (CLEAR); URINE BILIRUBIN NEG (NEG); URINE COLOR YELLOW; URINE EPITHELIAL CELL AUTO >30 /lpf (0-5); URINE NITRITE NEG (NEG); URINE PH 5.5 (4.5-7.5); UROBILINOGEN NEG (NEG)
[2017-03-28 21:45] LABS: MANUAL MICROSCOPIC REQUIRED? NO; REVIEW REQ? YES
[2017-03-28] MEDS: BOOST VANILLA PO SCH ×2 (22:40)
[2017-03-28] MEDS: THIAMINE HCL INJ 200 MG in SODIUM CHLORIDE 0.9% 50ML 50 ML IV SCH (22:41)
[2017-03-28] MEDS: HYDROCODONE/ACETAMOPHEN 5/325MG TAB PO PRN (23:05)
--- NOTE | 2017-03-29 00:30 | Progress Note ---
Subjective Date of Service: March 28, 2017. Subjective Pt evaluation today including: conversation w/ patient, conversation w/ family (son at bedside), physical exam, chart review, lab review, review of studies ( KUB x-rays), conversation w/ hr business partner consultant (GI, by phone), review of inpatient medication list Pain: denies abd pain; "neuropathy" in feet b/l PO Intake: very poor, but willing to drink boost supplement Voiding: william catheter in place pt w/ numerous complaints - 1. ongoing weakness - getting worse - "can't lift her head off the pillow" 2. ongoing poor appetite 3. b/l foot pain attributed to neuropathy 4. motility issues - nausea, diarrhea 5. diarrhea - copious per her account 6. desiring transfer to tertiary care 7. mild suprapubic discomfort Problem List Medical Problems: (1) Abdominal pain Status: Acute (2) Hypotension Status: Acute (3) Ischemic colitis Status: Acute (4) Rectal bleed Status: Acute Review of Systems Constitutional: + fever (low-grade) Respiratory: No shortness of breath Cardiac: No chest pain, No orthopnea Abdomen: + diarrhea, + nausea, No GI bleeding, No pain, No vomiting Objective Vital Signs Date Time Temp Pulse Resp B/P Pulse Ox O2 Delivery O2 Flow Rate FiO2 03/28/17 20:00 Room Air 03/28/17 16:30 Room Air 03/28/17 16:01 37.4 89 20 97/58 97 Room Air 03/28/17 08:15 Room Air 03/28/17 07:12 37.6 100 20 96/54 96 Room Air 03/28/17 01:30 Room Air Physical Exam General Appearance: no apparent distress ENT: pharynx normal Neck: no JVD Respiratory/Chest: lungs clear, no respiratory distress, no accessory muscle use Cardiovascular: regular rate, rhythm, no gallop, no murmur Abdomen: normal bowel sounds, non tender, soft, no organomegaly Extremities: no pedal edema Neurologic/Psychiatric: alert, oriented x 3, + pertinent finding (no proximal muscle weakness of upper or lower extremities; strength 5/5 x 4 exts all muscle groups tested; patellar reflexes 2+ b/l; achilles 0 b/l ) Skin: no rash, + pertinent finding (PICC line LUE clean) Laboratory Results Last 24 Hours Test 03/28/17 05:50 03/28/17 21:00 White Blood Count 10.38 K/uL Red Blood Count 3.51 M/uL Hemoglobin 9.6 g/dL Hematocrit 29.4 % Mean Corpuscular Volume 83.8 fL Mean Corpuscular Hemoglobin 27.4 pg Mean Corpuscular Hemoglobin Concent 32.7 g/dl Platelet Count 368 K/uL Mean Platelet Volume 9.0 fL RDW Standard Deviation 48.4 fL RDW Coefficient of Variation 15.9 % Neutrophils % (Manual) 81.8 % Lymphocytes % (Manual) 6.9 % Monocytes % (Manual) 7.8 % Basophils % (Manual) 0.9 % Metamyelocytes % 1.7 % Blast Cells % 0.9 % Neutrophils # (Manual) 8.49 K/uL Total Absolute Neutrophils 8.49 K/uL Lymphocytes # (Manual) 0.72 K/uL Total Absolute Lymphocytes 0.72 K/uL Monocytes # (Manual) 0.81 K/uL Basophils # (Manual) 0.09 K/uL Metamyelocytes # 0.18 K/uL Blast Cells # 0.09 K/uL Blood Smear Review Toxic Granulation 3+ Sodium Level 130 mmol/L Potassium Level 4.0 mmol/L Chloride Level 95 mmol/L Carbon Dioxide Level 26 mmol/L Anion Gap 9.0 mmol/L Blood Urea Nitrogen 19 mg/dl Creatinine 1.30 mg/dl Est Creatinine Clear Calc Drug Dose 34.9 ml/min Estimated GFR () 44.6 Estimated GFR (Non- 38.4 BUN/Creatinine Ratio 14.6 Random Glucose 82 mg/dl Calcium Level 8.4 mg/dl Urine Color YELLOW Urine Appearance CLEAR Urine pH 5.5 Urine Specific [place] 1.010 Urine Protein NEG Urine Glucose (UA) NEG Urine Ketones NEG Urine Occult Blood NEG Urine Nitrite NEG Urine Bilirubin NEG Urine Urobilinogen NEG Urine Leukocyte Esterase MODERATE Urine WBC (Auto) 5-10 /hpf Urine RBC (Auto) 0-4 /hpf Urine Hyaline Casts (Auto) 5-10 /lpf Urine Epithelial Cells (Auto) >30 /lpf Urine Bacteria (Auto) 1+ Urine Renal Epithelial Cells 5-10 /lpf Assessment and Plan 81yo female with: 1. septic shock 2nd to c. diff colitis and toxic megacolon - shock resolved. 2. c. diff colitis - severe - Day #17 of oral vanco. Flagyl d/c due to concern of neuropathy from such and patient not wanting to take the medication. Patient requested questran be discontinued due to concerns of it "constipating" her. Spoke with GI today. We discussed her desire for transfer to tertiary care center. Will explore this in the am. In meantime continue prolonged vancomycin taper. Stool transplant candidate in the future?? 3. steroid dependent scleroderma - cont 5mg daily. 4. acute renal failure 2nd to ATN in setting of #1 - resolved. 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 6. hyperthyroidism - TSH normal; cont same dose of methimazole. 7. acute/chronic diastolic CHF - acute component resolved. Cont ethacrynic acid 75mg but low threshold to hold such with volume contraction or worsening hyponatremia. 8. folic acid deficiency - convert from PO to IV in the event she is not absorbing such. 9. anemia of chronic disease +/- iron deficiency - consider IV iron. H/H low but acceptable for now. 10. hyperlipidemia - statin agent. Check CPK in am to ensure no myositis. 11. gastroparesis - no vomiting at this time. Tolerating clears/full liquids. 12. gout/podagra b/l - resolved. Consider allopurinol in future to drive down her markedly elevated uric acid level. 13. hyponatremia - mildly low but stable; due to diuretics, diarrhea, etc. Repeat BMP. 14. protein calorie malnutrition, mod-severe - encouraged to drink the boost breeze supplement BID. 15. ?neuropathy - has known l-spine DJD. This could be contributing. Could easily have thiamine deficiency. Folate def could play a role. Supplement both IV. Cont gabapentin. 16. blasts on CBC today - repeat CBC in am. Would be highly unusual to develop acute leukemia during this stay. Peripheral smear review in process by pathology. 17. significant weakness x 4 exts - check CPK, r/o critical illness myopathy. could be steroid myopathy. or, more likely, this is severe deconditioning. 18. DVT proph - heparin BID 19. ?UTI - pull william, then replace with new william, obtain u/a from fresh william ; Rx only if absolutely necessary son updated will explore tertiary care transfer in am Continued [facility] stay due to: inadequate po fluid intake, voiding difficulties, ambulation difficulties Discharge planning: uncertain
[2017-03-29] MEDS: METRONIDAZOLE / NSS 500 MG in PREMIXED NSS 100 ML IV SCH (06:00)
[2017-03-29] MEDS: DOMPERIDONE 10 MG PO SCH (06:06)
[2017-03-29 06:20] LABS: HEMATOCRIT 25.6 % (37-47); MEAN CELL VOLUME 84.2 fL (80-100); MEAN CORPUSCULAR HEMOGLOBIN 27.3 pg (25-34); MEAN CORPUSCULAR HGB CONC 32.4 g/dl (32-36); MEAN PLATELET VOLUME 8.9 fL (7.4-10.4); PLATELET COUNT 314 K/uL (130-400); RED BLOOD COUNT 3.04 M/uL (4.2-5.4); WHITE BLOOD COUNT 8.57 K/uL (4.8-10.8)
[2017-03-29 06:59] LABS: BUN/CREATININE RATIO 14.4 (10-20); CREATININE 1.5 mg/dl (0.60-1.20); POTASSIUM 3.9 mmol/L (3.5-5.1)
[2017-03-29 07:10] LABS: LARGE PLATELETS 1+; POIKILOCYTOSIS PRESENT; TOXIC GRANULATION 3+; VACUOLIZATION 1+
[2017-03-29 07:12] LABS: EOSINOPHIL % 1.8 %; LYMPH ABS # 1.28 K/uL (1.2-3.4); LYMPHOCYTE % 14.9 %; META ABS # 0.22 K/uL (0-0); METAMYELOCYTE % 2.6 %; MYELOCYTE % 0.9 %; NEUTROPHILS % 64.8 %
[2017-03-29] MEDS: BOOST BREEZE NUTRITION DRINK 1 BOX PO SCH (07:26)
[2017-03-29] MEDS: FoLIC ACID INJ 1 MG in SYRINGE 9.8 ML IV SCH (07:32)
[2017-03-29] MEDS: THIAMINE HCL INJ 200 MG in SODIUM CHLORIDE 0.9% 50ML 50 ML IV SCH (07:32)
[2017-03-29] MEDS: RASPBERRY SYRUP 5 ML UDP PO SCH (07:33)
[2017-03-29] MEDS: CHOLECALCIFEROL 1000 INTER.UNIT TAB PO SCH (07:33)
[2017-03-29] MEDS: METHIMAZOLE 5 MG TAB PO SCH (07:33)
[2017-03-29] MEDS: GABAPENTIN 100 MG CAP PO SCH (07:33)
[2017-03-29] MEDS: VANCOMYCIN HCL 250 MG/5 ML SOLN PO SCH (07:33)
[2017-03-29] MEDS: CEROVITE ADV FORMULA TAB PO SCH (07:33)
[2017-03-29] MEDS: BOOST VANILLA PO SCH ×2 (07:34)
[2017-03-29] MEDS: LORATADINE 10 MG TAB PO SCH (07:34)
[2017-03-29] MEDS: ETHACRYNIC ACID 25 MG TAB PO SCH (07:34)
[2017-03-29] MEDS: METOPROLOL TARTRATE 25 MG TAB PO SCH (07:34)
[2017-03-29] MEDS: HEPARIN SOD 5000 UNIT/0.5 ML CARP SQ SCH (07:36)
[2017-03-29 07:40] VITALS: BP 96/57; PULSE 94; TEMP 37.1; O2SAT 97
[2017-03-29] MEDS: ACETAMINOPHEN 325 MG TAB PO PRN (07:44)
--- NOTE | 2017-03-29 10:36 | Medical Student: [facility] ---
Med Student Progress Note Date of Service March 29, 2017. Subjective Pt evaluation today including: conversation w/ patient PO Intake: improved but minimal. Drank two boost in last 24 hours Voiding: william catheter in place Ms Mariangel Phoenix is an 81 yo female on hospital day 17 with severe c. diff colitis. She notes improved strength today, which she attributes to drinking an entire can of Boost last night and almost an entire can this morning. She is able to lift her head off the pillow today. She notes multiple bowel movements this morning, all loose. She again was interested in her lab results, specifically her potassium and albumin. She was very happy to hear she had been accepted at [facility]. She denies chest pain, shortness of breath, cough, nausea, vomiting. Review of Systems Constitutional: + fatigue, + weakness, No chills, No fever, No sweats, No weight loss Eyes: No problem reported ENT: No problem reported Respiratory: No problem reported Cardiac: No problem reported Breast: No problem reported Abdomen: + constipation, + diarrhea, No GI bleeding, No nausea, No pain, No vomiting Musculoskeletal: No problem reported Female : No problem reported Neurologic: + numbness/tingling (in feet bilaterally ), + weakness (improved today), No paralysis Psychiatric: No problem reported Heme: No problem reported Endo: No problem reported Skin: No problem reported Objective Vital Signs Date Time Temp Pulse Resp B/P Pulse Ox O2 Delivery O2 Flow Rate FiO2 03/29/17 08:15 Room Air 03/29/17 07:40 37.1 94 16 96/57 97 Room Air 03/29/17 00:00 Room Air 03/28/17 20:30 78 18 96/62 Room Air 03/28/17 20:00 Room Air 03/28/17 16:30 Room Air 03/28/17 16:01 37.4 89 20 97/58 97 Room Air Physical Exam General Appearance: WD/WN, no apparent distress Eyes: bilateral eyes EOMI, bilateral eyes PERRL, bilateral eyes normal inspection ENT: normal ENT inspection, hearing grossly normal, pharynx normal Neck: supple, no JVD, no carotid bruits Respiratory/Chest: chest non-tender, no respiratory distress, no accessory muscle use, + decreased breath sounds Cardiovascular: regular rate, rhythm, no edema, no JVD, no murmur Abdomen: non tender, soft, + distended, + pertinent finding (hypoactive bowel sounds, tympanic) Extremities: non-tender, normal inspection, no pedal edema, no calf tenderness , normal capillary refill Neurologic/Psychiatric: alert, normal mood/affect, oriented x 3 Skin: normal color Laboratory Results Last 24 Hours Test 03/28/17 21:00 03/29/17 05:45 Urine Color YELLOW Urine Appearance CLEAR Urine pH 5.5 Urine Specific [place] 1.010 Urine Protein NEG Urine Glucose (UA) NEG Urine Ketones NEG Urine Occult Blood NEG Urine Nitrite NEG Urine Bilirubin NEG Urine Urobilinogen NEG Urine Leukocyte Esterase MODERATE Urine WBC (Auto) 5-10 /hpf Urine RBC (Auto) 0-4 /hpf Urine Hyaline Casts (Auto) 5-10 /lpf Urine Epithelial Cells (Auto) >30 /lpf Urine Bacteria (Auto) 1+ Urine Renal Epithelial Cells 5-10 /lpf White Blood Count 8.57 K/uL Red Blood Count 3.04 M/uL Hemoglobin 8.3 g/dL Hematocrit 25.6 % Mean Corpuscular Volume 84.2 fL Mean Corpuscular Hemoglobin 27.3 pg Mean Corpuscular Hemoglobin Concent 32.4 g/dl Platelet Count 314 K/uL Mean Platelet Volume 8.9 fL RDW Standard Deviation 49.6 fL RDW Coefficient of Variation 16.0 % Neutrophils % (Manual) 64.8 % Lymphocytes % (Manual) 14.9 % Monocytes % (Manual) 13.2 % Eosinophils % (Manual) 1.8 % Metamyelocytes % 2.6 % Myelocytes % 0.9 % Promyelocytes % 0.9 % Blast Cells % 0.9 % Neutrophils # (Manual) 5.55 K/uL Total Absolute Neutrophils 5.55 K/uL Lymphocytes # (Manual) 1.28 K/uL Total Absolute Lymphocytes 1.28 K/uL Monocytes # (Manual) 1.13 K/uL Eosinophils # (Manual) 0.15 K/uL Metamyelocytes # 0.22 K/uL Myelocytes # 0.08 K/uL Promyelocytes # 0.08 K/uL Blast Cells # 0.08 K/uL Toxic Granulation 3+ Toxic Vacuolation 1+ Large Platelets 1+ Poikilocytosis PRESENT Sodium Level 129 mmol/L Potassium Level 3.9 mmol/L Chloride Level 95 mmol/L Carbon Dioxide Level 26 mmol/L Anion Gap 8.0 mmol/L Blood Urea Nitrogen 22 mg/dl Creatinine 1.50 mg/dl Est Creatinine Clear Calc Drug Dose 30.2 ml/min Estimated GFR () 37.5 Estimated GFR (Non- 32.3 BUN/Creatinine Ratio 14.4 Random Glucose 78 mg/dl Calcium Level 8.0 mg/dl Total Creatine Kinase 12 U/L Assessment and Plan Assessment and Plan: Ms Mariangel Phoenix is an 81 yo female with multiple chronic medical conditions including CHF, scleroderma, Stage III CKD among others who is on hospital day 17 for complicated c. diff colitis. She was accepted at [facility] this morning and is excited to transfer. Individual assessment and plans are as follows: 1. C.diff colitis: Persistent, severe. Patient has been on vancomycin since admission and continues to have diarrhea. Diarrhea seems to be worse with more physical activity, likely due to gastroparesis from sclerodema. She had six loose BMs today so far. Will continue on vacomycin 250mg po qid. Metronidazole refused by patient due to concerns over neuropathy. ID and GI consulted, fine with her going to [facility]. White count holding within normal range x4 days. 2. Gastroparesis: Persistent, chronic. Secondary to vagotomy/partial gastrectomy and scleroderma. Will continue Domperidone and Emend with each meal to aid with gastric motility. Ileus resolved on KUB. Surgery not recommended. 3. Scleroderma: Chronic. Chronically on 5mg prednisone daily. 4. Chronic Kidney Disease, Stage III. Chronic. BUN and Creatinine currently stable. ATN earlier in hospital stay now resolved. 5. Acute/Chronic diastolic CHF: Chronic, stable. Fluid status currently well controlled. Patient takes ethacrynic acid daily to aid with diuresis. Will hold for 1-2 days as patient's electrolytes look "dry". 6. Back pain: Continue with lidoderm patch, PT/OT in [facility]. Tramadol 50mg and [place] 5/325 q6 prn. 7. UTI: Asymptomatic. William in place. E. coli on culture. Will continue to hold off on treating at this time until diarrhea stops, as additional abx may worsen c. diff colitis at this time. 8. Generalized weakness: Likely due to deconditioning x 16 days, protein and nutrient malnutrition. Will continue to encourage cooperation with PT/OT, encourage food as able. Continue to do Boost Breeze at each meal 9. Neuropathy: Likely due to sciatic nerve irritation/impingement from osteoporosis and laying in bed for 17 days, possibly secondary to metronidazole. On gabapentin 150mg daily, will consider doubling to 300 as pain continues to increase. Noted thiamine and folate deficiencies. Will repleat IV. 10. Anemia of chronic disease: Iron deficient. Will continue to hold PO iron, d/ t nausea. 11. Restless leg: Pramipexole .25mg daily. 12. Seasonal Allergies: Loratadine 10mg and fluticasone nasal spray. 13. Blast cells on CBC: x 2 days. Spoke with pathologist who notes this is likely artifact of left shift, not a neoplastic process. Will suggest further workup at [facility]. 14. DVT Prophylaxis: Continue heparin 5000units sq a 12. 15. Disposition: Transfer to [facility] for advanced GI care including possible fecal transplant. Patient reviewed her living will with systems software engineer prior to transfer to [facility]. Continued [facility] stay due to: inadequate po fluid intake, voiding difficulties, ambulation difficulties Discharge planning: other (transfer to [facility])
[2017-03-29] MEDS: FAMOTIDINE IV INJ 20 MG in DEXTROSE 5% 100ML 100 ML IV SCH (10:43)
[2017-03-29 11:11] VITALS: BP 96/57; PULSE 94; TEMP 37.1; O2SAT 97
--- NOTE | 2017-03-29 11:34 | Discharge Summary ---
Discharge Summary Date of Service March 29, 2017. Discharge Summary Admission Date: March 12, 2017 at 07:05 Discharge Date: March 29, 2017 Discharge Disposition: Acute care facility ([facility] ) Principal Diagnosis: septic shock 2nd to c. diff colitis Problems/Secondary Diagnoses: 1. mod-severe protein calorie malnutrition 2. CKD stage 3, baseline Cr 1.5-1.8 3. acute kidney injury 2nd to sepsis associated ATN 4. hypokalemia 5. hypomagnesemia 6. hypophosphatemia 7. folic acid deficiency 8. b/l podagra 9. blast cells on cbc - needs additional work-up/follow-up 10. acute/chronic diastolic CHF 11. h/o SVT 12. steroid-dependent scleroderma 13. hyperthyroidism 14. neuropathy of feet - etiology uncertain 15. restless legs/cramps 16. lumbar spine DJD - severe 17. severe gastroparesis 18. anemia - multifactorial 19. h/o b12 deficiency 20. probable gastritis 21. hyperlipidemia 22. h/o HTN 23. recurrent UTIs 24. severe deconditioning 25. h/o ischemic colitis (multiple episodes) 26. h/o recurrent c. diff colitis Immunizations: Have You Had Influenza Vaccine: Yes Influenza Vaccine Date: Jul 28, 2012 History of Tetanus Vaccine?: Yes Tetanus Immunization Date: March 27, 2009 History of Pneumococcal: Yes Pneumococcal Date: March 27, 2009 History of Hepatitis B Vaccine: No Procedures: 1. echocardiogram: -- Conclusions -- The left ventricle is normal in size. There is normal left ventricular wall thickness. Ejection Fraction = 65-70%. Left ventricular systolic function is normal. The left ventricular wall motion is normal. The right ventricle is normal in size and function. The right ventricular systolic function is normal as assessed by tricuspid annular plane systolic excursion (TAPSE) (normal >1.5 cm). The left atrium is mildly dilated. Right ventricular systolic pressure is normal. Dilated inferior vena cava with reduced collapsibility with sniff indicates an elevated right atrial pressure of 15 mmHg Grade I diastolic dysfunction, (abnormal relaxation pattern). 2. CT abd/pelvis - FINDINGS: Minimal dependent basilar atelectasis. Generalized colonic distention. Moderate pericolonic infiltrative change. No evidence of pneumatosis. Liver spleen and pancreas are grossly unremarkable. Multiple bilateral renal cysts are present. There is no evidence for hydronephrosis. Bladder suspension procedure. Distended bowel loop versus a cystic process in the region of the right ovary. This measures 5.1 cm. Chronic sigmoid diverticulosis. IMPRESSION: 1. Generalized colonic colitis findings.. 2. No evidence for abscess collection or obstruction. 3. Multiple bilateral renal cysts. 4. Distended dissection of bowel versus possible 5 cm right ovarian cystic mass. This is considered abnormal for age with pelvic ultrasonography is suggested. This is performed previously dated 05/18/2016, although the cystic process is slightly increased in prominence 3. LUE PICC line placement 4. william exchange on 03/28/17 Consultations: 1. critical care - Olga Barrientos MD 2. infectious disease - Mee Valdez DO 3. gastroenterology - multiple providers 4. PT, OT 5. refund clerk 6. general surgery Discharge Exam Physical Exam: General Appearance: no apparent distress ENT: pharynx normal (MMM, no thrush) Neck: no JVD Respiratory/Chest: lungs clear, no respiratory distress, no accessory muscle use Cardiovascular: regular rate, rhythm, no gallop, no JVD, normal peripheral pulses, + systolic murmur (1-2/6 LSB ), + extra beats Abdomen / GI: normal bowel sounds, non tender, soft, no organomegaly Extremities: no pedal edema, + pertinent finding (b/l first MTP joints of feet - mildly swollen, minimal erythema, tender to palpation ) Neurologic/Psychiatric: alert, oriented x 3, + pertinent finding (no proximal muscle weakness of upper or lower extremities) Skin: no rash, + pertinent finding (PICC line, LUE - clean, no erythema or drainage) Hospital Course HISTORY OF PRESENT ILLNESS: Ms. Phoenix is an 81-year-old female who suffers from recurrent bouts of ischemic colitis. The patient also has significant gastroparesis to the point where she only has 2 bowel movements in a week and takes 1-3 glasses of GoLYTELY nightly. Reportedly, the patient did not have a bowel movement for 6 days. The patient reportedly took her GoLYTELY as usual last evening, she developed abdominal pain which is diffuse, crampy in nature, and then began to have sweats, chills, dizziness and weakness, and began producing voluminous diarrhea. In the Emergency Department, the patient had an elevated lactic acid at 2.1 and elevated white blood cell count of 13. She was hypotensive with a blood pressure of 53/34 and hypoxic on room air at 89%. The patient was recommended for admission for the possibility of colitis and sepsis. The patient states that she up until this week has been in her normal usual bowel pattern. She follows with Dr. Bowling. Her biggest complaint currently is abdominal discomfort which is diffuse. She did have a CT scan of her abdomen and pelvis on presentation, which did not show any evidence of perforated viscus, did show generalized colitis, no abscess. There is also a 5 cm right ovarian cystic mass that was seen, which was also seen on a previous study but looks like it has increased in prominence. This could also be a distended loop of bowel. HOSPITAL COURSE: The patient was admitted to the ICU on HD #1 for septic shock 2nd to c. diff colitis and borderline toxic megacolon. She did require pressors for about 24 hours and copious volume resuscitation. Stress-dose steroids were also employed as she is on 5mg of prednisone chronically for her scleroderma. She did not require intubation/mech ventilation. The c. diff was treated initially with a combination of oral vancomycin and IV flagyl. Following discontinuation of her pressor agents she was successfully transitioned out of the ICU to the step-down telemetry unit. She continued to be followed by GI and ID for her severe c diff colitis. Surgical options for her severe c diff colitis and/or fecal transplant were discussed with the patient throughout her stay. She has received, in total, about 17-18 days of high-dose vancomycin 250mg QID. There was some concern that the flagyl led to neuropathy in the patient's distal legs and at her request this was discontinued. Thus she has remained on vancomycin monotherapy only. She has had a very slow, gradual recovery from this severe episode of c. diff colitis. At time of transfer to [facility] she is still having about 7-8 loose bowel movements daily. She has not tolerated bile acid sequestrants and probiotics have been avoided due to her immunosuppressed status. During her stay malnutrition has been an ongoing issue. She has done poorly with oral nutrition because of her severe gastroparesis. Albumin levels have been low in the 2-2.5 range. The patient was also seen by general surgery during her stay and surgical options were reviewed with the patient but she declined any surgical intervention. Because of slow recovery and seemingly refractory c. diff colitis symptoms despite standard care the patient requested transfer to a tertiary care center. Dr. Olman Cueva at [facility] graciously accepted Ms. Phoenix on for ongoing care. Other issues addressed while hospitalized included - 1. acute renal failure 2nd to ATN in setting of septic shock with baseline CKD - resolved, Cr 1.5 on day of discharge. 2. anemia - multifactorial - has folic acid deficiency (replacing IV) and borderline low iron levels. She may need IV supplementation of iron at [facility]. 3. steroid-dependent scleroderma - remains on prednisone 5mg daily. 4. gastritis - clinical - responded nicely to IV H2 kay. 5. h/o hyperthyroidism - TSH was normal during this stay; she continues on low -dose methimazole. 6. acute/chronic diastolic CHF - acute component resolved with IV/PO ethacrynic acid 75mg. This has been intermittently held due to intra-vascular volume depletion. She is compensated or slightly dry at time of transfer. 7. ?neuropathy of feet/legs - unclear etiology. Patient is concerned it was due to flagyl. Thus, it was discontinued. Patient's folic acid has been supplemented, B12 level was normal, and patient also given thiamine IV in the event she has B1 deficiency. She also has severe lumbar spine DJD that could be contributing. Remains on gabapentin for this. 8. hyperlipidemia - remains on statin agent. CPK on 03/29/17 was normal. LFTs have been normal. 9. gastroparesis - chronic issue; has had no recent vomiting. remains on dromperidone. 10. gout/podagra b/l - resolving. Consider allopurinol in future to drive down her markedly elevated uric acid level of 12.1. 11. hyponatremia - mildly low but stable; due to diuretics, diarrhea, etc. Na level on 03/29/17 was 129. Had been 129-130 for 5+ days prior to transfer. 12. protein calorie malnutrition, mod-severe - encouraged to drink the boost breeze supplement BID while here and IS tolerating this on day of discharge. 13. blast cells on CBC - uncertain if this is artifactual or underwriting sales representative of a true leukemic process. This will need follow-up at [facility]. Formal pathology peripheral smear at [facility] was pending at time of discharge. 14. 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 Again CPK was normal however. 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 Or, more likely, this is severe deconditioning. L-spine DJD could be contributing. 15. ?UTI - her william was d/c on 03/28/17 and new one was replaced at that time. Fresh urine was sent on 03/28/17 and u/a was relatively clean. She has no symptoms of UTI at this time. Patient was encouraged to have her william completely discontinued but asked to have it put back. Code status - patient wishes for CPR and defibrillation/shocks but NO ETT intubation or mechanical ventilation Current Inpatient Medications Medications (Trade) Dose Ordered Sig/[place] Route Start Time Stop Time Status Last Admin Dose Admin Methimazole (Methimazole Tab) 2.5 mg QAM PO 03/12/17 09:00 04/11/17 08:59 03/29/17 07:33 2.5 MG Atorvastatin Calcium (Lipitor Tab) 20 mg HS PO 03/13/17 21:00 04/12/17 20:59 03/28/17 20:44 20 MG Acetaminophen (Tylenol Tab) 650 mg Q4H PRN PO 03/12/17 07:15 04/11/17 07:14 03/29/17 07:44 650 MG Ondansetron HCl (Zofran Inj) 4 mg Q6H PRN IV 03/12/17 07:15 04/11/17 07:14 03/21/17 08:46 4 MG Raspberry (Raspberry Syrup 5ml Cup) 5 ml QID PO 03/12/17 09:00 03/31/17 16:59 03/29/17 07:33 5 ML Heparin Sodium (Porcine) (Heparin Sq 5000 Unit/0.5ml) 5,000 unit Q12 SQ 03/12/17 21:00 04/11/17 20:59 03/29/17 07:36 5,000 UNIT Heparin Sodium (Porcine) (Heparin 10 Unit/ ml 5 ml Flush) 5 ml PRN PRN FLUSH 03/13/17 01:30 04/12/17 01:29 03/29/17 08:03 5 ML Domperidone Maleate (Domperidone) 10 mg ACHS PO 03/14/17 16:15 04/13/17 16:14 03/29/17 06:06 10 MG Tramadol HCl (Ultram Tab) 50 mg Q6H PRN PO 03/15/17 12:00 04/14/17 11:59 03/18/17 03:39 50 MG Acetaminophen/ Hydrocodone Bitart ([place] 5/325 Tab) 0.5 tab Q6H PRN PO 03/15/17 13:30 03/29/17 13:29 03/28/17 23:05 0.5 TAB Pramipexole Dihydrochloride (miraPEX TAB) 0.25 mg HS PO 03/16/17 21:00 04/15/17 20:59 03/28/17 20:43 0.25 MG Lisinopril (Zestril Tab) 10 mg HS PO 03/16/17 21:00 04/15/17 20:59 03/27/17 22:50 10 MG Pantoprazole Sodium (Protonix Tab) 40 mg DAILY PO 03/18/17 08:00 04/17/17 07:59 Future Hold 03/21/17 09:44 40 MG Enteral Nutritional Formula (Boost Breeze Nutritional Drink) 1 box BID PO 03/17/17 20:00 04/16/17 19:59 Loratadine (Claritin Tab) 10 mg QAM PO 03/19/17 08:00 04/18/17 07:59 03/29/17 07:34 10 MG Fluticasone Propionate (Flonase Nasal [place]) 2 sprays HS ROBIN 03/18/17 23:00 04/17/17 22:59 03/28/17 20:41 2 SPRAYS Colchicine (Colchicine Tab) 0.6 mg DAILY PO 03/20/17 08:00 04/19/17 07:59 Future Hold 03/21/17 09:44 0.6 MG Multivitamins/ Minerals (Multivitamin W/ Minerals Tab) 1 tab QAM PO 03/21/17 08:00 04/20/17 07:59 03/29/17 07:33 1 TAB Vancomycin HCl (Vancomycin Oral Soln) 250 mg QID PO 03/21/17 17:00 03/31/17 16:59 03/29/17 07:33 250 MG Metoprolol Tartrate (Lopressor Tab) 25 mg QAM PO 03/23/17 08:00 04/22/17 07:59 03/27/17 08:37 25 MG Prednisone (PredniSONE TAB) 5 mg DAILY PO 03/23/17 08:00 04/22/17 07:59 03/29/17 07:33 5 MG Simethicone (Mylicon Chew Tab) 80 mg Q6H PRN PO 03/22/17 12:45 04/21/17 12:44 03/22/17 14:41 80 MG Gabapentin 100 mg BID PO 03/23/17 20:00 04/22/17 19:59 03/29/17 07:33 100 MG Dexamethasone/ Nystatin/ Diphenhydramine HCl/Sucrose/ Microcrystalline Cellulose/Barcode (Decadron Conc Soln/Mycostatin Susp/Benadryl Syrup/Ora-Sweet Syrup/Ora-Plus Susp. Vehicle) Q6H PRN PO 03/23/17 11:45 04/22/17 11:44 03/23/17 12:46 5 ML Gabapentin (Neurontin) 150 mg DAILY@1400 PO 03/24/17 14:00 04/23/17 13:59 03/28/17 13:47 150 MG Ethacrynic Acid (Edecrin Tab) 75 mg DAILY PO 03/25/17 08:00 04/24/17 07:59 Future Hold 03/29/17 07:34 75 MG Cholecalciferol (Vitamin D Tab) 1,000 inter.unit QAM PO 03/26/17 08:00 04/25/17 07:59 03/29/17 07:33 1,000 INTER.UNIT Al Hydroxide/Mg Hydroxide 15 ml 15 ml Q6H PRN PO 03/25/17 17:00 04/24/17 16:59 03/28/17 05:43 15 ML Famotidine/ Dextrose (Pepcid IV Inj/ D5 100ml) 102 ml @ 200 mls/hr Q12H IV 03/28/17 11:00 03/30/17 10:59 03/29/17 10:43 200 MLS/HR Enteral Nutritional Formula 1 can 1 can TID PO 03/28/17 20:00 04/27/17 19:59 03/29/17 07:34 1 CAN Folic Acid 1 mg/ Syringe 10 ml @ 5 mls/min QAM IV 03/28/17 18:00 04/27/17 17:59 03/29/17 07:32 5 MLS/MIN Thiamine HCl/ Sodium Chloride (Vitamin B-1 Inj/ Nss 50ml) 52 ml @ 208 mls/hr Q12H IV 03/28/17 20:00 04/27/17 19:59 03/29/17 07:32 208 MLS/HR 03/27/17 05:50 Red Blood Count 3.24, Mean Corpuscular Volume 83.3, Mean Corpuscular Hemoglobin 26.9, Mean Corpuscular Hemoglobin Concent 32.2, Mean Platelet Volume 8.6 03/28/17 05:50 Red Blood Count 3.51, Mean Corpuscular Volume 83.8, Mean Corpuscular Hemoglobin 27.4, Mean Corpuscular Hemoglobin Concent 32.7, Mean Platelet Volume 9.0 03/29/17 05:45 Red Blood Count 3.04, Mean Corpuscular Volume 84.2, Mean Corpuscular Hemoglobin 27.3, Mean Corpuscular Hemoglobin Concent 32.4, Mean Platelet Volume 8.9 03/27/17 05:50 03/28/17 05:50 03/29/17 05:45 Test 03/27/17 05:50 03/28/17 05:50 03/28/17 21:00 03/29/17 05:45 White Blood Count 9.85 K/uL (4.8-10.8) 10.38 K/uL (4.8-10.8) 8.57 K/uL (4.8-10.8) Red Blood Count 3.24 M/uL (4.2-5.4) 3.51 M/uL (4.2-5.4) 3.04 M/uL (4.2-5.4) Hemoglobin 8.7 g/dL (12.0-16.0) 9.6 g/dL (12.0-16.0) 8.3 g/dL (12.0-16.0) Hematocrit 27.0 % (37-47) 29.4 % (37-47) 25.6 % (37-47) Mean Corpuscular Volume 83.3 fL (80-100) 83.8 fL (80-100) 84.2 fL (80-100) Mean Corpuscular Hemoglobin 26.9 pg (25-34) 27.4 pg (25-34) 27.3 pg (25-34) Mean Corpuscular Hemoglobin Concent 32.2 g/dl (32-36) 32.7 g/dl (32-36) 32.4 g/dl (32-36) Platelet Count 333 K/uL (130-400) 368 K/uL (130-400) 314 K/uL (130-400) Mean Platelet Volume 8.6 fL (7.4-10.4) 9.0 fL (7.4-10.4) 8.9 fL (7.4-10.4) RDW Standard Deviation 48.3 fL (36.4-46.3) 48.4 fL (36.4-46.3) 49.6 fL (36.4-46.3) RDW Coefficient of Variation 15.9 % (11.5-14.5) 15.9 % (11.5-14.5) 16.0 % (11.5-14.5) Neutrophils % (Manual) 68.3 % 81.8 % 64.8 % Lymphocytes % (Manual) 16.7 % 6.9 % 14.9 % Monocytes % (Manual) 8.8 % 7.8 % 13.2 % Eosinophils % (Manual) 0.9 % 1.8 % Basophils % (Manual) 1.8 % 0.9 % Metamyelocytes % 3.5 % 1.7 % 2.6 % Neutrophils # (Manual) 6.73 K/uL (1.4-6.5) 8.49 K/uL (1.4-6.5) 5.55 K/uL (1.4-6.5) Total Absolute Neutrophils 6.73 K/uL (1.4-6.5) 8.49 K/uL (1.4-6.5) 5.55 K/uL (1.4-6.5) Lymphocytes # (Manual) 1.64 K/uL (1.2-3.4) 0.72 K/uL (1.2-3.4) 1.28 K/uL (1.2-3.4) Total Absolute Lymphocytes 1.64 K/uL (1.2-3.4) 0.72 K/uL (1.2-3.4) 1.28 K/uL (1.2-3.4) Monocytes # (Manual) 0.87 K/uL (0.11-0.59) 0.81 K/uL (0.11-0.59) 1.13 K/uL (0.11-0.59) Eosinophils # (Manual) 0.09 K/uL (0-0.5) 0.15 K/uL (0-0.5) Basophils # (Manual) 0.18 K/uL (0-0.2) 0.09 K/uL (0-0.2) Metamyelocytes # 0.34 K/uL (0-0) 0.18 K/uL (0-0) 0.22 K/uL (0-0) Toxic Granulation 3+ 3+ 3+ Anion Gap 8.0 mmol/L (3-11) 9.0 mmol/L (3-11) 8.0 mmol/L (3-11) Est Creatinine Clear Calc Drug Dose 34.9 ml/min 34.9 ml/min 30.2 ml/min Estimated GFR () 44.6 44.6 37.5 Estimated GFR (Non- 38.4 38.4 32.3 BUN/Creatinine Ratio 13.4 (10-20) 14.6 (10-20) 14.4 (10-20) Calcium Level 7.9 mg/dl (8.5-10.1) 8.4 mg/dl (8.5-10.1) 8.0 mg/dl (8.5-10.1) Phosphorus Level 2.9 mg/dl (2.5-4.9) Magnesium Level 2.0 mg/dl (1.8-2.4) Total Bilirubin 0.5 mg/dl (0.2-1) Aspartate Amino Transf (AST/SGOT) 31 U/L (15-37) Alanine Aminotransferase (ALT/SGPT) 30 U/L (12-78) Alkaline Phosphatase 68 U/L (45-117) Total Protein 5.4 gm/dl (6.4-8.2) Albumin 2.0 gm/dl (3.4-5.0) Globulin 3.4 gm/dl (2.5-4.0) Albumin/Globulin Ratio 0.6 (0.9-2) Blast Cells % 0.9 % 0.9 % Blast Cells # 0.09 K/uL (0-0) 0.08 K/uL (0-0) Blood Smear Review Urine Color YELLOW Urine Appearance CLEAR (CLEAR) Urine pH 5.5 (4.5-7.5) Urine Specific [place] 1.010 (1.000-1.030) Urine Protein NEG (NEG) Urine Glucose (UA) NEG (NEG) Urine Ketones NEG (NEG) Urine Occult Blood NEG (NEG) Urine Nitrite NEG (NEG) Urine Bilirubin NEG (NEG) Urine Urobilinogen NEG (NEG) Urine Leukocyte Esterase MODERATE (NEG) Urine WBC (Auto) 5-10 /hpf (0-5) Urine RBC (Auto) 0-4 /hpf (0-4) Urine Hyaline Casts (Auto) 5-10 /lpf (0-5) Urine Epithelial Cells (Auto) >30 /lpf (0-5) Urine Bacteria (Auto) 1+ (NEG) Urine Renal Epithelial Cells 5-10 /lpf (0-5) Myelocytes % 0.9 % Promyelocytes % 0.9 % Myelocytes # 0.08 K/uL (0-0) Promyelocytes # 0.08 K/uL (0-0) Toxic Vacuolation 1+ Large Platelets 1+ Poikilocytosis PRESENT Total Creatine Kinase 12 U/L (26-192) I would like to thank Dr. Olman Cueva for accepting Ms. Phoenix in transfer for ongoing care at [facility]. Savage Calderon MD Total Time Spent: Greater than 30 minutes This includes examination of the patient, discharge planning, medication reconciliation, and communication with other providers. Discharge Instructions Please refer to the electronic Patient Visit Report (Discharge Instructions) for additional information. Follow-Up to be determined following admission at [facility] Additional Copies To RV. Mariano MD; Kale Ward M.D.; Kevin Martin M.D. ; [facility]
[2017-03-29 12:05] LABS: COMPLETE YES
[2017-06-09] MEDS ORDERED: HYDR200T5 PO (12:59)
[2017-06-09] MEDS ORDERED: GABA-112 PO (12:59)
[2017-10-08] MEDS ORDERED: MOME6000 NAE (13:10)
[2017-10-08] MEDS ORDERED: DENO60SO INJ (13:10)
[2017-10-08] MEDS ORDERED: ACET-1256 PO (13:10)
[2017-10-08] MEDS ORDERED: [UNRECOGNIZED DRUG - CODE] PO (13:10)
[2017-10-08] MEDS ORDERED: FLUO5OIL OTL (13:10)
[2017-10-08] MEDS ORDERED: MULT60CA PO (13:10)
[2017-10-08] MEDS ORDERED: LISI-461 PO (13:10)
[2017-10-08] MEDS ORDERED: BIOT1TAB5 PO (13:10)
[2017-10-08] MEDS ORDERED: GABA-112 PO (13:10)
[2017-10-08] MEDS ORDERED: LORA10TA51 PO (13:10)
[2017-10-08] MEDS ORDERED: OXYC1TAB3 PO (17:02)
== END 2017-03-29 12:05 | disposition short-term general hospital (02) | DRG 871 ==
LOC: ENRESERVTM → CANRESERV → ENRESERVDT → EDBD 01:17 → C.EDA 01:19 → UNDOADMIN 07:05 → C.MSICU 07:05 → EDBEDREQ 07:47 → C.2T 03-14 14:57 → C.MSICU 03-14 14:57 → CMPBEDREQ 03-14 14:59 → EDBEDREQSVC 03-16 19:24 → C.MS4W 03-16 20:39 → C.2T 03-16 20:39
PROVIDERS: ADMIT Internal Medicine; ATTEND Internal Medicine
PROC: 02HV33Z Insertion of Infusion Device into Superior Vena Cava, Percutaneous Approach (ICD-10-PCS; principal; 2017-03-12)
DX: A41.51 Sepsis due to Escherichia coli [E. coli] (principal); I50.33 Acute on chronic diastolic (congestive) heart failure; K55.9 Vascular disorder of intestine, unspecified; A04.7 Enterocolitis due to Clostridium difficile; E44.0 Moderate protein-calorie malnutrition; R65.21 Severe sepsis with septic shock; N17.0 Acute kidney failure with tubular necrosis; E87.1 Hypo-osmolality and hyponatremia; G72.81 Critical illness myopathy; I12.9 Hypertensive chronic kidney disease with stage 1 through stage 4 chronic kidney disease, or unspecified chronic kidney disease; F32.9 Major depressive disorder, single episode, unspecified; I95.9 Hypotension, unspecified; K31.84 Gastroparesis; N18.3 Chronic kidney disease, stage 3 (moderate); E87.6 Hypokalemia; E83.42 Hypomagnesemia; E83.39 Other disorders of phosphorus metabolism; E53.8 Deficiency of other specified B group vitamins; Z79.52 Long term (current) use of systemic steroids; E05.90 Thyrotoxicosis, unspecified without thyrotoxic crisis or storm; G62.9 Polyneuropathy, unspecified; G25.81 Restless legs syndrome; M34.9 Systemic sclerosis, unspecified; K29.70 Gastritis, unspecified, without bleeding; M81.0 Age-related osteoporosis without current pathological fracture

== ENCOUNTER → 2017-05-13 | Outpatient (CLI) | payer BC ==
[~2017-05-13] MED LIST changes: +CHOL1000 PO; -CHOL100010 PO; -CYAN3INJ IM; +CYNI1000 INJ; +GABA-112 PO; +HYDR200T5 PO; +NAPR1TAB9 PO
[2017-05-13 12:15] LABS: BASO % 0.5 %; BASO ABS # 0.06 K/uL (0-0.2); COMPLETE YES; EOS % 2.1 %; HEMATOCRIT 30.8 % (37-47); IG% 1.3 %; LYMPH % 24.6 %; LYMPH ABS # 3.15 K/uL (1.2-3.4); MEAN CELL VOLUME 87.3 fL (80-100); MEAN CORPUSCULAR HEMOGLOBIN 26.6 pg (25-34); MEAN CORPUSCULAR HGB CONC 30.5 g/dl (32-36); MONO % 8.8 %; NEUT % 62.7 %; PLATELET COUNT 422 K/uL (130-400); RED BLOOD COUNT 3.53 M/uL (4.2-5.4); WHITE BLOOD COUNT 12.82 K/uL (4.8-10.8)
[2017-05-13 12:46] LABS: ALT/SGPT 20 U/L (12-78); AST/SGOT 16 U/L (15-37); BLOOD UREA NITROGEN 43 mg/dl (7-18); BUN/CREATININE RATIO 28.8 (10-20); CALCIUM 9.8 mg/dl (8.5-10.1); CARBON DIOXIDE 29 mmol/L (21-32); CHLORIDE 100 mmol/L (98-107); GLUCOSE 81 mg/dl (70-99); SODIUM 137 mmol/L (136-145)
[2017-05-13 12:48] LABS: ALB/GLOB RATIO 0.9 (0.9-2); ALKALINE PHOSPHATASE 87 U/L (45-117)
== END | disposition home or self-care (01) ==
LOC: C.LAB1850 10:53
PROVIDERS: ATTEND Internal Medicine
DX: A04.7 Enterocolitis due to Clostridium difficile (principal); D64.9 Anemia, unspecified

== ENCOUNTER → 2017-05-19 | Outpatient (CLI) | payer BC ==
[~2017-05-19] MED LIST changes: -GABA-112 PO; -HYDR200T5 PO
[2017-05-19 13:07] LABS: BASO % 0.4 %; BASO ABS # 0.05 K/uL (0-0.2); COMPLETE YES; EOS % 1.2 %; HEMATOCRIT 29.2 % (37-47); LYMPH % 11.9 %; LYMPH ABS # 1.68 K/uL (1.2-3.4); MEAN CELL VOLUME 88.5 fL (80-100); MEAN CORPUSCULAR HEMOGLOBIN 27.9 pg (25-34); MEAN CORPUSCULAR HGB CONC 31.5 g/dl (32-36); MEAN PLATELET VOLUME 9.5 fL (7.4-10.4); MONO % 6.5 %; PLATELET COUNT 399 K/uL (130-400); WHITE BLOOD COUNT 14.17 K/uL (4.8-10.8)
[2017-05-19 13:37] LABS: BLOOD UREA NITROGEN 43 mg/dl (7-18); BUN/CREATININE RATIO 26.7 (10-20); CALCIUM 9.3 mg/dl (8.5-10.1); CARBON DIOXIDE 24 mmol/L (21-32); CHLORIDE 99 mmol/L (98-107); GLUCOSE 86 mg/dl (70-99); POTASSIUM 4.3 mmol/L (3.5-5.1); SODIUM 133 mmol/L (136-145)
== END | disposition home or self-care (01) ==
LOC: C.LAB1850 11:41
PROVIDERS: ATTEND Internal Medicine
DX: E87.6 Hypokalemia (principal); D64.9 Anemia, unspecified

== ENCOUNTER → 2017-06-09 | Outpatient (CLI) | payer BC ==
[~2017-06-09] MED LIST changes: +GABA-112 PO; +HYDR200T5 PO
--- NOTE | 2017-06-09 12:47 | DIAGNOSTIC IMAGING REPORT ---
SOFT TISS HEAD/NECK-THYROID CLINICAL HISTORY: 81 years-old Female presenting with multiple thyroid nodules. TECHNIQUE: Real-time grayscale and color and spectral Doppler ultrasound imaging of the thyroid and base of the neck was performed. COMPARISON: 02/26/2015. FINDINGS: Right lobe: Heterogeneous parenchyma. The right lobe of the thyroid measures 6.7 x 3.0 x 2.4 cm. Multiple nodules: 1) upper pole heterogeneously hypoechoic nodule measuring 1.4 x 1.1 x 1.2 cm. This is well-defined. (Intermediate suspicion) 2) dominant lower pole heterogeneously hypoechoic spongiform-appearing nodule measuring 3.3 x 2.4 x 2.9 cm. This is well-defined. (Very low suspicion) Left lobe: Heterogeneous parenchyma. The left lobe of the thyroid measures 5.3 x 2.3 x 2.5 cm. Multiple nodules: 1) lower pole heterogeneously isoechoic nodule measuring 2.3 x 1.5 x 2.1 cm. This is well-defined. (Low suspicion) Isthmus: The isthmus measures 5 mm in thickness. 1 x 1.4 x 0.7 cm isoechoic to hypoechoic nodule along the left aspect. Nodule is fairly well-defined. (Intermediate suspicion) IMPRESSION: Multinodular thyroid. Fine-needle aspiration of the nodules recommended based on size. Electronically signed by: Ajay Lee M.D. 06/09/2017 12:46 PM Dictated Date/Time: 06/09/2017 12:38 PM
== END | disposition home or self-care (01) ==
LOC: C.ULTR 12:05
PROVIDERS: ATTEND Physician Assistant
DX: E04.2 Nontoxic multinodular goiter (principal)

== ENCOUNTER → 2017-06-14 | Outpatient (CLI) | payer BC ==
--- NOTE | 2017-06-14 11:38 | Discharge Instructions ---
Discharge Instructions Procedure Procedure Date: Jun 14, 2017. Reason for visit: Multiple Thyroid Nodules. Discharge Discharge Date: Jun 14, 2017. Discharge Diagnosis: s/p isthmus thyroid nodule FNA Instructions Activity Recommendations: No limitations Recommended Home Diet: No Limitations Provider Instructions: ACTIVITY RECOMMENDATIONS: * Rest today. * Resume regular activity in one day. MEDICATIONS: * May take Tylenol or Ibuprofen as needed for pain. DIET: * Resume previous diet. SPECIAL CARE INSTRUCTIONS: Call your doctor if: * Temperature above 101 degrees F. * Pain not relieved by pain medicine ordered. * Increased drainage or redness from incision. * Notify your doctor with any questions or concerns. Call your doctor or go to the nearest Emergency Department if you experience: * Increased chest pain or shortness of breath. FOLLOW UP VISIT: Follow-up with Referring Physician as scheduled. Allergies Coded Allergies: Adhesives (Verified Allergy, Severe, BLISTERING, 06/13/17) PAPER TAPE CAUSES SEVERE BLISTERING Cefuroxime (Unverified Allergy, Unknown, INEFFECTIVE, 06/12/17) Ciprofloxacin (Unverified Allergy, Unknown, INEFFECTIVE, 06/12/17) Erythromycin (Verified Allergy, Unknown, SEVERE VOMITING, 06/12/17) Furosemide (Verified Allergy, Unknown, HIVES, SULFA ALLERGY TO LOOP DIURETICS, 06/12/17) Hydrochlorothiazide (Verified Allergy, Unknown, HIVES, 06/12/17) Levofloxacin (Unverified Allergy, Unknown, INEFFECTIVE, 06/12/17) Metoclopramide (Verified Allergy, Unknown, anxiety attacks, 06/12/17) Sulfa Antibiotics (Unverified Allergy, Unknown, HIVES AND ANAPHYLAXIS, 06/12) Metronidazole (Unverified Adverse Reaction, Severe, Neuropathy, 06/12/17) Meperidine (Verified Adverse Reaction, Unknown, INEFFECTIVE FOR PT, 06/12/17 ) INAFFECTIVE FOR PATIENT Uncoded Allergies: all diuretics (Allergy, Severe, throat swells, 06/10/17) Fiona Warren Recommendations: Call your doctor if: * Temperature above 101 degrees * Pain not relieved by pain medicine ordered * There is increased drainage or redness from any incision * You have any unanswered questions or concerns. Your Doctors Instructions noted above were prepared by provider Dusty Meyer. Patient Signature Section: Patient Instructions Signature Page Mariangel Phoenix Patient (or Guardian) Signature/Date: I have read and understand the instructions given to me by my caregivers. Caregiver/RN/Doctor Signature/Date: The above-named patient and/or guardian has received patient instructions on this date. + Original Patient Signature Page (only) stays with chart. Please make copy for patient.
--- NOTE | 2017-06-14 11:55 | DIAGNOSTIC IMAGING REPORT ---
ULTRASOUND GUIDED FINE NEEDLE ASPIRATION OF LEFT ISTHMUS THYROID NODULE CLINICAL HISTORY: Thyroid nodules. COMPARISON STUDY: Thyroid ultrasound June 09, 2017. PROCEDURE: The patient presents today for fine needle aspiration of the 1.4 cm left isthmus nodule. The procedure, risks and benefits were discussed with the patient and informed written consent was obtained. The procedure was performed by Dr. Meyer following a timeout. Skin was prepped and draped in sterile fashion and local anesthesia was achieved with 1% lidocaine. Under direct ultrasound guidance, 3 25-gauge fine needle aspirations of the 1.4 cm left isthmus nodule were performed. The samples were deemed preliminarily adequate by pathology. The patient tolerated the procedure well and no immediate complications were evident. IMPRESSION: Ultrasound guided fine needle aspiration of 1.4 cm left isthmus nodule. Electronically signed by: Dusty Meyer M.D. 06/14/2017 11:54 AM Dictated Date/Time: 06/14/2017 11:53 AM
== END | disposition home or self-care (01) ==
LOC: C.ULTR 09:27
DX: E04.2 Nontoxic multinodular goiter (principal)

== ENCOUNTER → 2017-06-30 | Outpatient (CLI) | payer BC ==
[~2017-06-30] MED LIST changes: -LISI10TA PO
--- NOTE | 2017-06-30 15:14 | DIAGNOSTIC IMAGING REPORT ---
Brain MRI WITHOUT CONTRAST HISTORY: R41.89 Cognitive [id number] Vision [id number] TECHNIQUE: Multiplanar multisequence MRI of the brain was performed without the use of contrast. COMPARISON STUDY: Brain MRI 04/24/2007. FINDINGS: There is no mass, hematoma, midline shift, or acute infarct. The paranasal sinuses are clear. Partial opacification of the mastoid air cells. The ventricles and sulci demonstrate mild age-related involutional changes. A few foci of T2 hyperintensity seen within the periventricular and subcortical white matter are nonspecific but suggestive of minimal microvascular ischemic changes. The major vascular flow voids at the skull base are well-maintained. IMPRESSION: No acute intracranial abnormality. Partial opacification of the bilateral mastoid air cells. Electronically signed by: Sam Jones M.D. 06/30/2017 3:12 PM Dictated Date/Time: 06/30/2017 3:08 PM
== END | disposition home or self-care (01) ==
LOC: C.MRI 13:23
PROVIDERS: ATTEND Psychiatry & Neurology Neurology
DX: R41.89 Other symptoms and signs involving cognitive functions and awareness (principal); H53.9 Unspecified visual disturbance

== ENCOUNTER → 2017-08-03 | Outpatient (CLI) | payer BC ==
[2017-08-03 15:42] LABS: BASO % 0.6 %; BASO ABS # 0.06 K/uL (0-0.2); COMPLETE YES; EOS % 2.3 %; HEMATOCRIT 37.1 % (37-47); IG% 0.6 %; LYMPH % 19.1 %; LYMPH ABS # 1.93 K/uL (1.2-3.4); MEAN CELL VOLUME 92.5 fL (80-100); MEAN CORPUSCULAR HEMOGLOBIN 29.7 pg (25-34); MEAN CORPUSCULAR HGB CONC 32.1 g/dl (32-36); MEAN PLATELET VOLUME 9.9 fL (7.4-10.4); MONO % 6.8 %; NEUT % 70.6 %; PLATELET COUNT 286 K/uL (130-400); RED BLOOD COUNT 4.01 M/uL (4.2-5.4); WHITE BLOOD COUNT 10.12 K/uL (4.8-10.8)
[2017-08-03 16:09] LABS: ALT/SGPT 21 U/L (12-78); AST/SGOT 17 U/L (15-37); BLOOD UREA NITROGEN 83 mg/dl (7-18); BUN/CREATININE RATIO 43.7 (10-20); CALCIUM 9.2 mg/dl (8.5-10.1); CARBON DIOXIDE 26 mmol/L (21-32); CHLORIDE 103 mmol/L (98-107); GLUCOSE 83 mg/dl (70-99); SODIUM 138 mmol/L (136-145)
[2017-08-03 16:18] LABS: ALKALINE PHOSPHATASE 84 U/L (45-117); THYROID STIMULATING HORMONE 0.798 uIu/ml (0.300-4.500); TOTAL IRON BINDING CAPACITY 313 mcg/dl (250-450)
== END | disposition home or self-care (01) ==
LOC: C.LAB1850 14:06
PROVIDERS: ATTEND Internal Medicine
DX: D64.9 Anemia, unspecified (principal); M81.0 Age-related osteoporosis without current pathological fracture; E53.8 Deficiency of other specified B group vitamins; E05.90 Thyrotoxicosis, unspecified without thyrotoxic crisis or storm; N18.4 Chronic kidney disease, stage 4 (severe)

== ENCOUNTER → 2017-08-16 | Outpatient (CLI) | payer BC | END | disposition home or self-care (01) | LOC: C.LAB1850 12:36 | PROVIDERS: ATTEND Obstetrics & Gynecology | DX: N83.9 Noninflammatory disorder of ovary, fallopian tube and broad ligament, unspecified (principal) ==

== ENCOUNTER 2017-10-15 16:43 | Inpatient (IN) | payer BC, OTHER ==
[~2017-10-15] VITALS: Ht 157.5 cm; Wt 79.3 kg
[~2017-10-15 16:43] MED LIST changes: +ACET-1256 PO; -ATOR-22 PO; -CALC0.2510 PO; -CHOL1000 PO; -CYNI1000 INJ; -ETHA1TAB3 PO; -HYDR200T5 PO; +LISI-461 PO; -MAGN250T22 PO; -METO25TA56 PO; -NAPR1TAB9 PO; +OXYC1TAB3 PO; -PRED-301 PO; -[UNRECOGNIZED DRUG - OTHER] PO
[2017-10-15] MEDS ORDERED: MoRPHine SULFATE 4 MG/ML 1 ML CARP\\VIAL IV STA ×2 (17:35→19:42)
[2017-10-15] MEDS ORDERED: ONDANSETRON INJ 2 MG/ML 2 ML VIAL IV STA (17:35)
[2017-10-15 18:39] LABS: URINE APPEARANCE CLEAR (CLEAR); URINE BILIRUBIN NEG (NEG); URINE COLOR YELLOW; URINE NITRITE NEG (NEG); UROBILINOGEN NEG (NEG); ZZUR CULT IF INDIC CLEAN CATCH NO
[2017-10-15 18:43] LABS: MANUAL MICROSCOPIC REQUIRED? NO; REVIEW REQ? NO
[2017-10-15 18:47] LABS: BASO % 0.4 %; BASO ABS # 0.03 K/uL (0-0.2); EOS % 2.3 %; HEMATOCRIT 40.1 % (37-47); IG% 0.6 %; LYMPH % 15.7 %; LYMPH ABS # 1.31 K/uL (1.2-3.4); MEAN CELL VOLUME 95.7 fL (80-100); MEAN CORPUSCULAR HEMOGLOBIN 31.5 pg (25-34); MEAN CORPUSCULAR HGB CONC 32.9 g/dl (32-36); MEAN PLATELET VOLUME 9.2 fL (7.4-10.4); MONO % 8.1 %; NEUT % 72.9 %; PLATELET COUNT 193 K/uL (130-400); RED BLOOD COUNT 4.19 M/uL (4.2-5.4); WHITE BLOOD COUNT 8.32 K/uL (4.8-10.8)
[2017-10-15 19:01] LABS: PROTHROMBIN TIME (PATIENT) 10.5 SECONDS (9.0-12.0)
[2017-10-15 19:07] LABS: AST/SGOT 22 U/L (15-37); BLOOD UREA NITROGEN 40 mg/dl (7-18); BUN/CREATININE RATIO 30.5 (10-20); CALCIUM 8.7 mg/dl (8.5-10.1); CARBON DIOXIDE 28 mmol/L (21-32); CHLORIDE 104 mmol/L (98-107); CREATININE 1.32 mg/dl (0.60-1.20); GLUCOSE 93 mg/dl (70-99); MAGNESIUM 2.4 mg/dl (1.8-2.4); POTASSIUM 4.2 mmol/L (3.5-5.1); SODIUM 137 mmol/L (136-145)
[2017-10-15 19:09] LABS: COMPLETE YES
[2017-10-15 19:20] LABS: ALB/GLOB RATIO 1.1 (0.9-2); ALKALINE PHOSPHATASE 72 U/L (45-117); ALT/SGPT 24 U/L (12-78)
--- NOTE | 2017-10-15 19:40 | DIAGNOSTIC IMAGING REPORT ---
PA CHEST RADIOGRAPH AND LEFT LATERAL DECUBITUS AND SUPINE AP RADIOGRAPHS OF THE ABDOMEN CLINICAL HISTORY: Left upper quadrant pain. COMPARISON STUDY: KUB March 28, 2017 and chest radiograph October 08, 2017. FINDINGS: Mild elevation of the right hemidiaphragm is unchanged. Lungs are clear. No pneumothorax or pleural effusion is present. Pulmonary vascularity is normal. Surgical clips at the gastroesophageal junction are noted. There is no free air on the left lateral decubitus image. Note is made of mild dilatation of a loop of colon within the right abdomen, measuring 7.7 cm. There is a possible 4 mm right renal calculus. A right femoral internal fixation is partially imaged. IMPRESSION: 1. No free air. 2. Mild dilatation of a colonic loop within the right mid abdomen, measuring 7.7 cm. This is nonspecific but there is no convincing evidence for a bowel obstruction. 3. No acute cardiopulmonary findings. 4. Possible 4 mm right renal calculus. Electronically signed by: Dusty Meyer M.D. 10/15/2017 7:39 PM Dictated Date/Time: 10/15/2017 7:31 PM
--- NOTE | 2017-10-15 20:54 | EMERGENCY ROOM VISIT NOTE ---
ED Visit Note First contact with patient: 16:49 I have personally seen and evaluated the patient with the PA. I agree with the diagnosis and management decisions and have been personally involved in the case. Patient's abdominal exam is benign. There is no focal reproducible tenderness. She does have significant pain in different locations that cannot be repeated. Abdominal x-ray series reveals no evidence of significant constipation however the patient has been using laxatives. There are several dilated loops of bowel. CT scan of the abdomen and pelvis was performed to rule out obstruction. It appears that the patient has a T7 compression fracture that is worse when compared to CT just several days ago. Do suspect the patient's discomfort is related to this injury and radiculopathy. Patient continues to have intractable pain despite IV morphine. Patient will be evaluated by the hospitalist service for further management. Please see Rhett Hammonds PA-C's notes for further details of the history, physical and visit.
--- NOTE | 2017-10-15 21:23 | DIAGNOSTIC IMAGING REPORT ---
CT OF THE ABDOMEN AND PELVIS WITHOUT CONTRAST CLINICAL HISTORY: Left upper quadrant abdominal pain. COMPARISON STUDY: CT of the abdomen and pelvis March 12, 2017 and abdominal series performed earlier today. TECHNIQUE: Axial images of the abdomen and pelvis were obtained without IV contrast. Images were reviewed in the axial, sagittal, and coronal planes. A dose lowering technique was utilized adhering to the principles of ALARA. FINDINGS: Numerous water attenuation bilateral renal lesions are suboptimally assessed on this unenhanced exam but were shown to reflect cysts on prior contrast enhanced CT. A few subcentimeter hepatic cysts are noted. These are unchanged. The adrenal glands, spleen and pancreas are unremarkable with the exception of a possible 1.6 cm hypodense lesion arising from the inferior aspect of the pancreatic neck shown on axial image 138 of 476. There is no pancreatic or biliary ductal dilatation. The gallbladder is surgically absent. Ingested material is noted within the stomach. There is no pneumatosis, free air or portal venous gas. There is no bowel obstruction. Note is made of extensive sigmoid diverticulosis without evidence for acute diverticulitis. A pessary device is in place. A water attenuation right adnexal lesion has moderately increased in size since CT of March 12, 2017. This now measures 7.4 x 6.3 cm. A T7 compression fracture is noted. There has been interval increase in vertebral body height loss since CT of October 08, 2017. IMPRESSION: 1. No bowel obstruction. 2. Moderate increase in size of a 7.4 x 6.3 cm right adnexal lesion. This measures water attenuation and therefore may reflect a cyst however is abnormal in a postmenopausal patient. A follow-up pelvic ultrasound to assess for complexity is recommended. 3. Possible 1.6 cm hypodense pancreatic neck lesion. This could reflect a side branch IPMN. A nonemergent pancreatic protocol CT is recommended. 4. Redemonstration of a T7 compression fracture with interval increase in vertebral body height loss since CT of October 08, 2017. This fracture is likely acute to subacute. Electronically signed by: Dusty Meyer M.D. 10/15/2017 9:22 PM Dictated Date/Time: 10/15/2017 8:59 PM
[2017-10-15] MEDS ORDERED: PNEUMOCOCCAL POLYSACCHARIDES 25 MCG/0.5 ML VIAL/SYR IM. ONE (22:00)
[2017-10-15] MEDS ORDERED: INFLUENZA VIRUS QUAD VACCINE 0.5 ML SYR IM. ONE (22:00)
[2017-10-15] MEDS ORDERED: MAGNESIUM HYDROXIDE SUSP 30 ML UDC PO PRN (22:00)
[2017-10-15] MEDS ORDERED: IV FLUIDS COMPLETED PRN (22:45)
--- NOTE | 2017-10-15 23:09 | History and Physical ---
History & Physical Date & Time of Service: Oct 15, 2017 at 22:23 Chief Complaint: Abd Pain Primary Care Physician: RV. Mariano MD History of Present Illness Source: patient Mariangel Phoenix is an 81yo female who presents with sudden onset left sided rib and LUQ pain when placing candles in a window one week ago. She was previously seen in the ED and discharged with presumed muscle injury; however, pt now presents with worsening pain in the same area times 1 week. Per PMHx pt was diagnosed with severe osteoporosis with hx of numerous non-traumatic fractures. On CT scan this admission, a redemonstration of a T7 compression fracture with interval increase in vertebral body height loss since CT of October 08, 2017. This fracture is likely acute to subacute.. Pt does state that the pain is circumferential but is worse on the left. On palpation, pain is 7/10 with 5-6 being consider tolerable. Pt denies recent trauma or fall. 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 Pt follows with [facility] for spinal issues as well as a local [employer]. Pt denies headache, change in vision, head trauma, difficulty breathing, chest pain, change in bowel or bladder habits, N/V/D. Past Medical/Surgical History Medical Problems: Mixed Connective Tissue Dz Hyperthyroidism Hyperparathyroidism Cataracts Spinal Stenosis Vit B12 Def Hearing Impairment Benign hypertension R. 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 Chronic congestive heart failure Compression fracture Depression dextroscoliosis E COLI UTI POA Gastroesophageal reflux disease Hyperlipidemia Osteoporosis PUD Pyelonephritis CKD Stage IV Sepsis Vertigo Surgical Hx: -Sub-total Gastrectomy with vagotomy -Cholecystectomy -Hysterectomy -Appendectomy -Spinal Surgeries x 3 - discectomy in 2007 was complicated by MRSA infection and required revision - performed by neurosurgery - she was not a candidate for fusion due to severe osteoporosis -Vaginal Repair -Thyroid/Breast Biopsies Family History Cancer Gallbladder disease Heart disease Hypertension Non-Contributory Social History Smoking Status: Never Smoker Drug Use: none Marital Status: Housing status: lives with family Occupational Status: retired Immunizations History of Influenza Vaccine: Yes Influenza Vaccine Date: Jul 28, 2012 History of Tetanus Vaccine?: Yes Tetanus Immunization Date: March 27, 2009 History of Pneumococcal: Yes Pneumococcal Date: March 27, 2009 History of Hepatitis B Vaccine: No Multi-Drug Resistant Organisms History of MDRO: No Allergies Coded Allergies: Adhesives (Verified Allergy, Severe, BLISTERING, 10/15/17) PAPER TAPE CAUSES SEVERE BLISTERING Cefuroxime (Verified Allergy, Unknown, INEFFECTIVE, 10/15/17) Ciprofloxacin (Verified Allergy, Unknown, INEFFECTIVE, 10/15/17) Erythromycin (Verified Allergy, Unknown, SEVERE VOMITING, 10/15/17) Furosemide (Verified Allergy, Unknown, HIVES, SULFA ALLERGY TO LOOP DIURETICS, 10/15/17) Hydrochlorothiazide (Verified Allergy, Unknown, HIVES, 10/15/17) Levofloxacin (Verified Allergy, Unknown, INEFFECTIVE, 10/15/17) Metoclopramide (Verified Allergy, Unknown, anxiety attacks, 10/15/17) Sulfa Antibiotics (Verified Allergy, Unknown, HIVES AND ANAPHYLAXIS, ) Metronidazole (Verified Adverse Reaction, Severe, Neuropathy, 10/15/17) Meperidine (Verified Adverse Reaction, Unknown, INEFFECTIVE FOR PT, ) INAFFECTIVE FOR PATIENT Uncoded Allergies: all diuretics (Allergy, Severe, throat swells, 06/10/17) Home Medications Scheduled , 10 MG PO QID Atorvastatin (Lipitor), 20 MG PO HS Biotin (Biotin), 1,000 MCG PO QAM Calcitriol (Rocaltrol Cap), 0.25 MCG PO QAM Cholecalciferol (Vitamin D3), 3,000 UNIT PO DAILY Cyanocobalamin (Cyanocobalamin), 1 DOSE INJ MONTHLY Denosumab (Prolia), 60 MG INJ UD Ethacrynic Acid (Edecrin), 100 MG PO QAM Fluocinolone Acetonide (Otic) (Fluocinolone Acetonide), 5 DROPS OTL DAILY Gabapentin (Neurontin), 100 MG PO BID Gabapentin (Neurontin), 200 MG PO HS Leucovorin Calcium (Leucovorin Calcium), 5 MG PO DAILY Lisinopril (Lisinopril), 10 MG PO HS Loratadine (Claritin), 10 MG PO QAM Magnesium Oxide (Magnesium), 250 MG PO QAM Methimazole (Methimazole ), 2.5 MG PO QAM Metoprolol Tartrate (Lopressor) (Lopressor), 12.5 MG PO BID Mometasone Furoate (Nasal) (Mometasone Furoate), 1 SPRAY ROBIN DAILY Multiple Vitamins W/ Minerals (Preservision Areds 2), 1 CAP PO BID Peg [id number] Bicarb-Sod Ch (Golytely), 1-3 DOSE PO QPM Prednisone (Prednisone), 5 MG PO QAM Scheduled PRN Acetaminophen (Tylenol), 500 MG PO UD PRN for Pain Tramadol (Ultram), 50 MG PO HS PRN for Pain Review of Systems 12 systems reviewed and negative other than previously mentioned in the HPI. Physical Exam Vital Signs Date Time Temp Pulse Resp B/P (MAP) Pulse Ox O2 Delivery O2 Flow Rate FiO2 10/15/17 21:00 63 20 109/63 94 Room Air 10/15/17 20:41 63 20 114/60 96 10/15/17 20:09 69 16 135/61 98 Room Air 10/15/17 18:53 73 10/15/17 18:42 95 Room Air 10/15/17 16:53 37.0 72 16 167/145 98 Room Air Vital Signs - as noted Laboratory Data - as noted Physical Exam: General - NAD, Resting comfortably in bed when not moving Eyes - PERRL, EOMI No icterus, gaze conjugate ENT - Mucosa moist, Upper Partial Denture in place, no lesions or candidiasis Neck - Supple, trachea midline, no masses or lymphadenopathy, no JVD or bruits Lungs - No paradoxical chest wall movement, clear to auscultation bilaterally, no wheezes, rales, or rhonchi Heart - Reg rate and rhythm, No murmur, rubs, clicks, or gallops appreciated Abdomen - BS present, no bruits noted, tympanic to percussion, soft, tenderness noted to LUQ and left thorax under upper extremity, nondistended, no organomegaly Extremities - No edema, pedal pulses intact, neuropathic pain to the touch on bilateral feet Neuro - A&OX4 Strength extremities equal and appropriate bilaterally Reflexes: Bicep, brachioradialis, patellar, and plantar normal and equal CN:PERRL, EOMI, no facial asymmetry, uvula/tongue midline Diagnostics Laboratory Results Results Past 24 Hours Test 10/15/17 18:18 10/15/17 18:36 Range/Units Urine Color YELLOW Urine Appearance CLEAR CLEAR Urine pH 7.0 4.5-7.5 Urine Specific [place] 1.010 1.000-1.030 Urine Protein NEG NEG Urine Glucose (UA) NEG NEG Urine Ketones NEG NEG Urine Occult Blood NEG NEG Urine Nitrite NEG NEG Urine Bilirubin NEG NEG Urine Urobilinogen NEG NEG Urine Leukocyte Esterase TRACE NEG Urine WBC (Auto) 1-5 0-5 /hpf Urine RBC (Auto) 0-4 0-4 /hpf Urine Hyaline Casts (Auto) 0 0-5 /lpf Urine Epithelial Cells (Auto) 10-20 0-5 /lpf Urine Bacteria (Auto) NEG NEG White Blood Count 8.32 4.8-10.8 K/uL Red Blood Count 4.19 4.2-5.4 M/uL Hemoglobin 13.2 12.0-16.0 g/dL Hematocrit 40.1 37-47 % Mean Corpuscular Volume 95.7 80-100 fL Mean Corpuscular Hemoglobin 31.5 25-34 pg Mean Corpuscular Hemoglobin Concent 32.9 32-36 g/dl Platelet Count 193 130-400 K/uL Mean Platelet Volume 9.2 7.4-10.4 fL Neutrophils (%) (Auto) 72.9 % Lymphocytes (%) (Auto) 15.7 % Monocytes (%) (Auto) 8.1 % Eosinophils (%) (Auto) 2.3 % Basophils (%) (Auto) 0.4 % Neutrophils # (Auto) 6.07 1.4-6.5 K/uL Lymphocytes # (Auto) 1.31 1.2-3.4 K/uL Monocytes # (Auto) 0.67 0.11-0.59 K/uL Eosinophils # (Auto) 0.19 0-0.5 K/uL Basophils # (Auto) 0.03 0-0.2 K/uL RDW Standard Deviation 50.8 36.4-46.3 fL RDW Coefficient of Variation 14.5 11.5-14.5 % Immature Granulocyte % (Auto) 0.6 % Immature Granulocyte # (Auto) 0.05 0.00-0.02 K/uL Red Blood Cell Morphology Unremarkable Prothrombin Time 10.5 9.0-12.0 SECONDS Prothromb Time International Ratio 1.0 0.9-1.1 Activated Partial Thromboplast Time 25.2 21.0-31.0 SECONDS Partial Thromboplastin Ratio 1.0 Sodium Level 137 136-145 mmol/L Potassium Level 4.2 3.5-5.1 mmol/L Chloride Level 104 98-107 mmol/L Carbon Dioxide Level 28 21-32 mmol/L Anion Gap 5.0 3-11 mmol/L Blood Urea Nitrogen 40 7-18 mg/dl Creatinine 1.32 0.60-1.20 mg/dl Est Creatinine Clear Calc Drug Dose 35.7 ml/min Estimated GFR () 43.7 Estimated GFR (Non- 37.7 BUN/Creatinine Ratio 30.5 10-20 Random Glucose 93 70-99 mg/dl Calcium Level 8.7 8.5-10.1 mg/dl Magnesium Level 2.4 1.8-2.4 mg/dl Total Bilirubin 0.6 0.2-1 mg/dl Aspartate Amino Transf (AST/SGOT) 22 15-37 U/L Alanine Aminotransferase (ALT/SGPT) 24 12-78 U/L Alkaline Phosphatase 72 45-117 U/L Troponin I < 0.015 0-0.045 ng/ml Total Protein 6.8 6.4-8.2 gm/dl Albumin 3.5 3.4-5.0 gm/dl Globulin 3.3 2.5-4.0 gm/dl Albumin/Globulin Ratio 1.1 0.9-[address] OF THE ABDOMEN AND PELVIS WITHOUT CONTRAST CLINICAL HISTORY: Left upper quadrant abdominal pain. COMPARISON STUDY: CT of the abdomen and pelvis March 12, 2017 and abdominal series performed earlier today. TECHNIQUE: Axial images of the abdomen and pelvis were obtained without IV contrast. Images were reviewed in the axial, sagittal, and coronal planes. A dose lowering technique was utilized adhering to the principles of ALARA. FINDINGS: Numerous water attenuation bilateral renal lesions are suboptimally assessed on this unenhanced exam but were shown to reflect cysts on prior contrast enhanced CT. A few subcentimeter hepatic cysts are noted. These are unchanged. The adrenal glands, spleen and pancreas are unremarkable with the exception of a possible 1.6 cm hypodense lesion arising from the inferior aspect of the pancreatic neck shown on axial image 138 of 476. There is no pancreatic or biliary ductal dilatation. The gallbladder is surgically absent. Ingested material is noted within the stomach. There is no pneumatosis, free air or portal venous gas. There is no bowel obstruction. Note is made of extensive sigmoid diverticulosis without evidence for acute diverticulitis. A pessary device is in place. A water attenuation right adnexal lesion has moderately increased in size since CT of March 12, 2017. This now measures 7.4 x 6.3 cm. A T7 compression fracture is noted. There has been interval increase in vertebral body height loss since CT of October 08, 2017. IMPRESSION: 1. No bowel obstruction. 2. Moderate increase in size of a 7.4 x 6.3 cm right adnexal lesion. This measures water attenuation and therefore may reflect a cyst however is abnormal in a postmenopausal patient. A follow-up pelvic ultrasound to assess for complexity is recommended. 3. Possible 1.6 cm hypodense pancreatic neck lesion. This could reflect a side branch IPMN. A nonemergent pancreatic protocol CT is recommended. 4. Redemonstration of a T7 compression fracture with interval increase in vertebral body height loss since CT of October 08, 2017. This fracture is likely acute to subacute. Electronically signed by: Dusty Meyer M.D. 10/15/2017 9:22 PM Dictated Date/Time: 10/15/2017 8:59 PM PA CHEST RADIOGRAPH AND LEFT LATERAL DECUBITUS AND SUPINE AP RADIOGRAPHS OF THE ABDOMEN CLINICAL HISTORY: Left upper quadrant pain. COMPARISON STUDY: KUB March 28, 2017 and chest radiograph October 08, 2017. FINDINGS: Mild elevation of the right hemidiaphragm is unchanged. Lungs are clear. No pneumothorax or pleural effusion is present. Pulmonary vascularity is normal. Surgical clips at the gastroesophageal junction are noted. There is no free air on the left lateral decubitus image. Note is made of mild dilatation of a loop of colon within the right abdomen, measuring 7.7 cm. There is a possible 4 mm right renal calculus. A right femoral internal fixation is partially imaged. IMPRESSION: 1. No free air. 2. Mild dilatation of a colonic loop within the right mid abdomen, measuring 7.7 cm. This is nonspecific but there is no convincing evidence for a bowel obstruction. 3. No acute cardiopulmonary findings. 4. Possible 4 mm right renal calculus. Electronically signed by: Dusty Meyer M.D. 10/15/2017 7:39 PM Dictated Date/Time: 10/15/2017 7:31 PM EKG Sinus Rhythm with 1st Degree AV Block Left [place] Deviation QTc 402 Impression Assessment and Plan (1) Back pain (2) Musculoskeletal chest pain (3) Compression fracture (4) renal disease (5) Osteoporosis Patient is an 81-year-old female who is transferred to the ICU for increasing left side > right side rib/abd pain with non-traumatic spinal compression fracture due to severe osteoporosis with intractable pain. Spinal Compression Fracture/Osteoporosis Consult Orthopedics: [facility] Pain currently well controlled after receiving 4mg Morphine x 2 * 1/2mg Dilaudid q 3h PRN pain * Toradol 30mg IV x 1 now Monitor for AMS/Respiratory Depression * Pt DNI/DNR now Neuropathy Continue Home Neurontin * 100mg PO BID * 200mg PO HS Renal Disease Monitor renally dosed medications Continue 10mg Lisinopril PO Hyperthyroidism: Methimazole 250Mg PO qAM CAD/HF: Metoprolol 12.5Mg PO BID Atorvastatin 20Mg PO HS Chronic Malabsorption Continue Home Regimen Vit D, Mag, Ca DVT Prophylaxis: Heparin 5000U BID Reviewed labs, prior records, medications and imaging. Discussed with pt, son and ER attending. Time Involved: 35 minutes Thank you for involving us in the care of this patient. Resident Physician Supervision Note: I was present with [facility] during the history and exam. I discussed the case with the resident and agree with the findings and plan as documented in the note. Any exceptions or clarifications are listed here: 81 y/o F with an extensive medical Hx including CAD, CHF, MCTD, critical Cdiff, severe osteoporosis owing to malabsorption which was the result of a gastrectomy. She has had multiple pathological fractures including compression fractures which can result from day to day activities. She presents with back and abdominal pain that is limiting her ability to transfer although she is currently wheelchair bound. A CT was obtained and shows a probable acute T7 fracture. OE - present for exam per ELIZABETH AAO x 3 - no distress without movement S1,2 R CTA There was no abdominal tenderness No CCE - she maintains sensation in her feet P: Pt is admitted for evaluation by orthopedics - she has required surgery in the past which was complicated by MRSA infection. She could not undergo fusion due to her advanced osteoporosis. We will provide her with pain control and maintain her on her extensive medications at present. T/OT eval should follow ortho/spine eval and she may need rehab placement. Above discussed with pt, ER attending, PA Documented By: Benny Pollard Level of Care Med/Surg Advanced Directives Existing Advance Directive: Yes Existing Living Will: Yes Resuscitation Status DO NOT RESUSCITATE VTE Prophylaxis VTE Risk Assessment Done? Y/N: Yes Risk Level: Moderate Given or contraindicated: Unfractionated heparin SQ Social Service Consult None Apply
[2017-10-15] MEDS ORDERED: KETOROLAC TROMETHAMINE 30 MG/ML VIAL IV. STA (23:22)
[2017-10-15] MEDS: HYDROmorphone INJ 0.5 MG/0.5 ML SYR IV PRN (23:36)
[2017-10-16] VITALS: BP 120/71; PULSE 66; TEMP 36.7; O2SAT 97
--- NOTE | 2017-10-16 01:01 | EMERGENCY ROOM VISIT NOTE ---
History First contact with patient: 16:49 Chief Complaint: ABDOMINAL PAIN Stated Complaint: COMPRESSION FRACTURE Nursing Triage Summary: pt arrives via BLS from home per pt she had right abdominal pain she states "my abdomen is on fire." she reports last week she was reaching to put a candle in the windowsill she developed a pain under both breasts, she states it was a ripping sensation at this time she comes in today for worsening she reports increasing pain with position changes she reports pain medication as RX previously did not work she reports HX of septic shock that impaired her ability to stand and ambulate normally History of Present Illness The patient is a 81 year old female who presents to the Emergency Room the ambulance with complaints of "abdominal pain". The patient states that she was recently seen here for abdominal pain/rib pain and discharged home. She states that now the pain is radiating from underneath her left breast around the abdomen. She states that eating makes the pain worse. She states that she can barely move without the pain being excruciating. It is worse compared to when she was seen here the other day. Review of Systems A complete 10-point Review of Systems was discussed with the patient, with pertinent positives and negatives listed in the History of Present Illness. All remaining Review of Systems questions can be considered negative unless otherwise specified. Past Medical/Surgical History Medical Problems: (1) Appendectomy (2) Benign hypertension (3) C DIFF POA (4) Cholecystectomy (5) Chronic congestive heart failure (6) Colitis (7) Colonoscopy (8) Compression fracture (9) Depression (10) dextroscoliosis (11) E COLI UTI POA (12) Gastroesophageal reflux disease (13) Hyperlipidemia (14) Hysterectomy (15) orthopedic surgery (16) Osteoporosis (17) PERSONAL HISTORY OF PEPTIC ULCER DISEASE (18) Pyelonephritis (19) renal disease (20) Sepsis (21) Vertigo Family History Cancer Gallbladder disease Heart disease Hypertension Social History Smoking Status: Never Smoker Alcohol Use: none Drug Use: none Marital Status: Housing Status: lives with family Occupation Status: retired Current/Historical Medications Scheduled , 10 MG PO QID Atorvastatin (Lipitor), 20 MG PO HS Biotin (Biotin), 1,000 MCG PO QAM Calcitriol (Rocaltrol Cap), 0.25 MCG PO QAM Cholecalciferol (Vitamin D3), 3,000 UNIT PO DAILY Cyanocobalamin (Cyanocobalamin), 1 DOSE INJ MONTHLY Denosumab (Prolia), 60 MG INJ UD Ethacrynic Acid (Edecrin), 100 MG PO QAM Fluocinolone Acetonide (Otic) (Fluocinolone Acetonide), 5 DROPS OTL DAILY Gabapentin (Neurontin), 100 MG PO BID Gabapentin (Neurontin), 200 MG PO HS Leucovorin Calcium (Leucovorin Calcium), 5 MG PO DAILY Lisinopril (Lisinopril), 10 MG PO HS Loratadine (Claritin), 10 MG PO QAM Magnesium Oxide (Magnesium), 250 MG PO QAM Methimazole (Methimazole ), 2.5 MG PO QAM Metoprolol Tartrate (Lopressor) (Lopressor), 12.5 MG PO BID Mometasone Furoate (Nasal) (Mometasone Furoate), 1 SPRAY ROBIN DAILY Multiple Vitamins W/ Minerals (Preservision Areds 2), 1 CAP PO BID Peg [id number] Bicarb-Sod Ch (Golytely), 1-3 DOSE PO QPM Prednisone (Prednisone), 5 MG PO QAM Scheduled PRN Acetaminophen (Tylenol), 500 MG PO UD PRN for Pain Tramadol (Ultram), 50 MG PO HS PRN for Pain Physical Exam Vital Signs Date Time Temp Pulse Resp B/P (MAP) Pulse Ox O2 Delivery O2 Flow Rate FiO2 10/15/17 21:00 63 20 109/63 94 Room Air 10/15/17 20:41 63 20 114/60 96 10/15/17 20:09 69 16 135/61 98 Room Air 10/15/17 18:53 73 10/15/17 18:42 95 Room Air 10/15/17 16:53 37.0 72 16 167/145 98 Room Air Physical Exam VITAL SIGNS - Vital signs and nursing notes were reviewed. Stable. GENERAL - 81-year-old female appearing her stated age who is in no acute distress. Communicates well with provider and answers questions appropriately. SKIN - Without rashes. HEAD - NC/AT. EYES - Sclera anicteric. EARS - No deformities of external structures noted on gross examination bilaterally. NOSE - Midline and without cyanosis. No epistaxis or purulent drainage noted. MOUTH/OROPHARYNX - Without perioral cyanosis. LUNGS - Chest wall symmetric without accessory muscle use, intercostals retractions, or central cyanosis. Normal vesicular breath sounds CTA B/L. No wheezes, rales, or rhonchi appreciated. CARDIAC - RRR with S1/S2. No murmur, rubs, or gallops appreciated. ABDOMEN - Abdominal contour normal without pulsations or visible masses. Excruciating pain noted to palpation of the left lateral ribs and left upper quadrant region. NEUROLOGIC - Cranial nerves II through XII grossly intact. Sensory intact to light touch throughout. PSYCH - A&O and cooperates fully with examiner. Medical Decision & Procedures ER Provider Diagnostic Interpretation: PA CHEST RADIOGRAPH AND LEFT LATERAL DECUBITUS AND SUPINE AP RADIOGRAPHS OF THE ABDOMEN CLINICAL HISTORY: Left upper quadrant pain. COMPARISON STUDY: KUB March 28, 2017 and chest radiograph October 08, 2017. FINDINGS: Mild elevation of the right hemidiaphragm is unchanged. Lungs are clear. No pneumothorax or pleural effusion is present. Pulmonary vascularity is normal. Surgical clips at the gastroesophageal junction are noted. There is no free air on the left lateral decubitus image. Note is made of mild dilatation of a loop of colon within the right abdomen, measuring 7.7 cm. There is a possible 4 mm right renal calculus. A right femoral internal fixation is partially imaged. IMPRESSION: 1. No free air. 2. Mild dilatation of a colonic loop within the right mid abdomen, measuring 7.7 cm. This is nonspecific but there is no convincing evidence for a bowel obstruction. 3. No acute cardiopulmonary findings. 4. Possible 4 mm right renal calculus. Electronically signed by: Dusty Meyer M.D. 10/15/2017 7:39 PM Dictated Date/Time: 10/15/2017 7:[address] OF THE ABDOMEN AND PELVIS WITHOUT CONTRAST CLINICAL HISTORY: Left upper quadrant abdominal pain. COMPARISON STUDY: CT of the abdomen and pelvis March 12, 2017 and abdominal series performed earlier today. TECHNIQUE: Axial images of the abdomen and pelvis were obtained without IV contrast. Images were reviewed in the axial, sagittal, and coronal planes. A dose lowering technique was utilized adhering to the principles of ALARA. FINDINGS: Numerous water attenuation bilateral renal lesions are suboptimally assessed on this unenhanced exam but were shown to reflect cysts on prior contrast enhanced CT. A few subcentimeter hepatic cysts are noted. These are unchanged. The adrenal glands, spleen and pancreas are unremarkable with the exception of a possible 1.6 cm hypodense lesion arising from the inferior aspect of the pancreatic neck shown on axial image 138 of 476. There is no pancreatic or biliary ductal dilatation. The gallbladder is surgically absent. Ingested material is noted within the stomach. There is no pneumatosis, free air or portal venous gas. There is no bowel obstruction. Note is made of extensive sigmoid diverticulosis without evidence for acute diverticulitis. A pessary device is in place. A water attenuation right adnexal lesion has moderately increased in size since CT of March 12, 2017. This now measures 7.4 x 6.3 cm. A T7 compression fracture is noted. There has been interval increase in vertebral body height loss since CT of October 08, 2017. IMPRESSION: 1. No bowel obstruction. 2. Moderate increase in size of a 7.4 x 6.3 cm right adnexal lesion. This measures water attenuation and therefore may reflect a cyst however is abnormal in a postmenopausal patient. A follow-up pelvic ultrasound to assess for complexity is recommended. 3. Possible 1.6 cm hypodense pancreatic neck lesion. This could reflect a side branch IPMN. A nonemergent pancreatic protocol CT is recommended. 4. Redemonstration of a T7 compression fracture with interval increase in vertebral body height loss since CT of October 08, 2017. This fracture is likely acute to subacute. Electronically signed by: Dusty Meyer M.D. 10/15/2017 9:22 PM Dictated Date/Time: 10/15/2017 8:59 PM Laboratory Results 10/15/17 18:36 Red Blood Count 4.19, Mean Corpuscular Volume 95.7, Mean Corpuscular Hemoglobin 31.5, Mean Corpuscular Hemoglobin Concent 32.9, Mean Platelet Volume 9.2, Neutrophils (%) (Auto) 72.9, Lymphocytes (%) (Auto) 15.7, Monocytes (%) (Auto) 8.1, Eosinophils (%) (Auto) 2.3, Basophils (%) (Auto) 0.4, Neutrophils # (Auto) 6.07, Lymphocytes # (Auto) 1.31, Monocytes # (Auto) 0.67, Eosinophils # (Auto) 0.19, Basophils # (Auto) 0.03 10/15/17 18:36 Test 10/15/17 18:18 10/15/17 18:36 Urine Color YELLOW Urine Appearance CLEAR (CLEAR) Urine pH 7.0 (4.5-7.5) Urine Specific [place] 1.010 (1.000-1.030) Urine Protein NEG (NEG) Urine Glucose (UA) NEG (NEG) Urine Ketones NEG (NEG) Urine Occult Blood NEG (NEG) Urine Nitrite NEG (NEG) Urine Bilirubin NEG (NEG) Urine Urobilinogen NEG (NEG) Urine Leukocyte Esterase TRACE (NEG) Urine WBC (Auto) 1-5 /hpf (0-5) Urine RBC (Auto) 0-4 /hpf (0-4) Urine Hyaline Casts (Auto) 0 /lpf (0-5) Urine Epithelial Cells (Auto) 10-20 /lpf (0-5) Urine Bacteria (Auto) NEG (NEG) White Blood Count 8.32 K/uL (4.8-10.8) Red Blood Count 4.19 M/uL (4.2-5.4) Hemoglobin 13.2 g/dL (12.0-16.0) Hematocrit 40.1 % (37-47) Mean Corpuscular Volume 95.7 fL (80-100) Mean Corpuscular Hemoglobin 31.5 pg (25-34) Mean Corpuscular Hemoglobin Concent 32.9 g/dl (32-36) Platelet Count 193 K/uL (130-400) Mean Platelet Volume 9.2 fL (7.4-10.4) Neutrophils (%) (Auto) 72.9 % Lymphocytes (%) (Auto) 15.7 % Monocytes (%) (Auto) 8.1 % Eosinophils (%) (Auto) 2.3 % Basophils (%) (Auto) 0.4 % Neutrophils # (Auto) 6.07 K/uL (1.4-6.5) Lymphocytes # (Auto) 1.31 K/uL (1.2-3.4) Monocytes # (Auto) 0.67 K/uL (0.11-0.59) Eosinophils # (Auto) 0.19 K/uL (0-0.5) Basophils # (Auto) 0.03 K/uL (0-0.2) RDW Standard Deviation 50.8 fL (36.4-46.3) RDW Coefficient of Variation 14.5 % (11.5-14.5) Immature Granulocyte % (Auto) 0.6 % Immature Granulocyte # (Auto) 0.05 K/uL (0.00-0.02) Red Blood Cell Morphology Unremarkable Prothrombin Time 10.5 SECONDS (9.0-12.0) Prothromb Time International Ratio 1.0 (0.9-1.1) Activated Partial Thromboplast Time 25.2 SECONDS (21.0-31.0) Partial Thromboplastin Ratio 1.0 Anion Gap 5.0 mmol/L (3-11) Est Creatinine Clear Calc Drug Dose 35.7 ml/min Estimated GFR () 43.7 Estimated GFR (Non- 37.7 BUN/Creatinine Ratio 30.5 (10-20) Calcium Level 8.7 mg/dl (8.5-10.1) Magnesium Level 2.4 mg/dl (1.8-2.4) Total Bilirubin 0.6 mg/dl (0.2-1) Aspartate Amino Transf (AST/SGOT) 22 U/L (15-37) Alanine Aminotransferase (ALT/SGPT) 24 U/L (12-78) Alkaline Phosphatase 72 U/L (45-117) Troponin I < 0.015 ng/ml (0-0.045) Total Protein 6.8 gm/dl (6.4-8.2) Albumin 3.5 gm/dl (3.4-5.0) Globulin 3.3 gm/dl (2.5-4.0) Albumin/Globulin Ratio 1.1 (0.9-2) Medications Administered Medications (Trade) Dose Ordered Sig/[place] Route Start Time Stop Time Status Last Admin Dose Admin Morphine Sulfate (MoRPHine SULFATE INJ) 4 mg NOW STAT IV 10/15/17 17:35 10/15/17 17:36 DC 10/15/17 18:44 4 MG Ondansetron HCl (Zofran Inj) 4 mg NOW STAT IV 10/15/17 17:35 10/15/17 17:36 DC 10/15/17 18:43 4 MG Morphine Sulfate (MoRPHine SULFATE INJ) 4 mg NOW STAT IV 10/15/17 19:42 10/15/17 19:44 DC 10/15/17 20:01 4 MG Medical Decision Patient was seen and evaluated as above. She presents to us today with left upper quadrant/left rib pain. She is not short of breath. She has a history of compression fracture. Previous visit was reviewed. She did have a compression fracture at T7 and I question whether although was noted to be subacute to acute last time if this truly was acute. Chest x-ray with abdomen series was obtained and no acute process although slight dilation was noted of the bowel. Decision was made to obtain a noncontrasted CT scan of the abdomen and pelvis. It appears as though there is now a change in her vertebral height at T7 that is changed from the past few days. I believe this is causing her pain. She was given morphine but notes to still be in a good deal of pain. I believe that a second round is necessary she is reevaluated and feeling much better. She was offered inpatient management versus discharged home and prefers to stay secondary to her level of pain. I do believe this is reasonable. I discussed the case with the attending physician who also personally evaluated the patient. CBC reveals no concern of leukocytosis or anemia. Coags normal. Metabolic process reveals BUN and creatinine appear to be slightly improved compared to previous. Urine negative for acute process. I then subsequently to discusse the case with the hospitalist. Please refer to further documentation regarding her stay. Evaluation treatment this patient following differential diagnoses were entertained: [place], PE, compression fracture, among others. Impression Primary Impression: Compression fracture Departure Information Dispostion Still a Patient Condition GOOD Referrals RV. Mariano MD (PCP) Forms HOME CARE DOCUMENTATION FORM, IMPORTANT VISIT INFORMATION Patient Instructions My [facility]
[2017-10-16 01:28] VITALS: Ht 157.5 cm; Wt 79.3 kg
[2017-10-16] MEDS: HYDROmorphone INJ 0.5 MG/0.5 ML SYR IV PRN ×2 (02:37→05:54)
[2017-10-16] MEDS: HEPARIN SOD 5000 UNIT/0.5 ML CARP SQ SCH ×2 (06:10→18:51)
[2017-10-16 06:50] VITALS: BP 101/62; PULSE 55; TEMP 36.4; O2SAT 96
[2017-10-16] MEDS ORDERED: INFLUENZA VACCINE HIGH DOSE 65+ 0.5 ML SYR IM. ONE (08:00)
[2017-10-16] MEDS ORDERED: INFLUENZA ADMINISTRATION CHARGE ONE (08:00)
[2017-10-16] MEDS ORDERED: HYDROmorphone INJ 1 MG/ML SYR ONE (08:51)
--- NOTE | 2017-10-16 08:57 | ORTHOPEDIC CONSULTATION ---
DATE OF CONSULTATION: 10/16/2017 CHIEF COMPLAINT: Mid back and left-sided chest pain, noncardiac in nature. HISTORY OF PRESENT ILLNESS: The patient gives an excellent history. She is an 81-year-old, alert female who describes her pain beginning a week ago after trying to reach and move some Jordana decorations and then over the ensuing week things got worse. She did have pain medication, which she was discharged with from her ER visit on October 08, but returned yesterday on October 15 because of severe pain. 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 She had in the recent past a bad C. diff colitis which created sepsis and required prolonged hospitalization both here at [facility] and at [place]. She has carried a diagnosis of severe osteoporosis for decades. She has been on courses of Forteo. All other forms of treatment for osteoporosis including bisphosphonates both orally and parenterally. At this point in time, she notes that her lower extremity numbness is without change and her big issue is the girdle type pain, left side much worst than right side in mid thoracic region. She denies headache, change in vision (although she does have vision problems based on her sepsis), head trauma, difficulty breathing, change in bowel or bladder habits. PAST MEDICAL HISTORY: Remarkable for mixed connective tissue disease, hyperparathyroidism, cataracts, spinal stenosis, multiple vitamin deficiencies based on a gastric resection and vagotomy, hearing deficits, hypertension, right ovarian cyst, pulmonary nodules; history C. diff, multiple times; congestive heart failure, history of osteoporosis with compression fractures, depression, dextroscoliosis, history of Escherichia coli UTIs, GERD, hyperlipidemia, peptic ulcer disease, pyelonephritis, stage IV kidney disease, history of sepsis and vertigo. PAST SURGICAL HISTORY: Remarkable for subtotal gastrectomy with vagotomy, cholecystectomy, hysterectomy, appendectomy, multiple spinal surgeries in 2007 was complicated by MRSA. She was not a candidate for fusion of the severe osteoporosis. Vaginal repair, thyroid and breast biopsies. FAMILY HISTORY: Remarkable for cancer, gallbladder disease, heart disease, and hypertension. SOCIAL HISTORY: Reveals she does not smoke. She is . She lives with family. She is retired. She notes that she was able to use a sitting walker and was able to stand on her feet for about 2 minutes at a time, very limited mobility. She was able use commodes and so forth. She states she can use the commode here in the hospital. IMMUNIZATIONS: As previously recorded. ALLERGIES: List is extensive. Please see list. ADMISSION MEDICATIONS: Include Lipitor, biotin, calcitriol, multivitamins, edecrin, steroid drops for ears, gabapentin, leucovorin, benazepril, Claritin, magnesium, methimazole, metoprolol, nasal mometasone and Prednisone 5 mg daily. She is on chronic GoLYTELY. P.r.n. use of Tylenol and tramadol. REVIEW OF SYSTEMS: Reveals nothing new other than what was noted above. PERTINENT PHYSICAL EXAMINATION: Reveals she can move her head. All cranial nerves are intact. She has no pain with neck rotation. She has upper extremity movement. She has decreased sensation in median nerve distribution on the right hand. She states that also occurred with the Flagyl use, (she has been assessed by Dr. Zapata who documented severe neuropathy in both lower extremities and in the right hand. ABDOMEN: Soft, nontender. CHEST: Painful with any type of movement. There is no visible deformity. LOWER EXTREMITIES: Both lower extremities reveal good hip strength and quad and hamstring strength, has stocking glove distribution pain with any type of touch on the lower extremity below the knee severe at the feet and ankles.She has trace function of toe extension, flexion and ankle extension and flexion. LABORATORY WORK: As noted in the chart. IMAGING DATA: CT scan of her abdomen revealed no bowel obstruction, her right ovarian cyst is noted. There is a question of a pancreatic neck lesion and the T7 compression fracture is seen with increased height loss. This is not a dedicated study for that. Chest x-ray reveals a right renal calculus. EKG - first degree AV block. ASSESSMENT: Chronic back pain, based on thoracic compression fracture at T7. She has chronic osteoporosis and has failed medical management based on her issues with a gastrectomy, vagotomy. At this point in time, I think she needs a dedicated CT scan of her thoracic spine to assess the compression from all viewpoints (both the sagittal and coronal viewpoint). Workup of other lesions noted on the CT scan in the pancreas and the kidney stone, etc. per medicine. At this point in time, pain management is being effected with Dilaudid. Would suggest continue that. Adjust dose to 1mg q2hrs prn. Would also suggest obtaining a TENS unit from PT. Offered a ALATORRE extension brace; however; she feels like that would not work for her as she is very hypersensitive and tender and she feels that that would only increase her pain. Will obtain consult from Dr. Willett as this patient is followed by Dr. Beatty and Dr. Florence, in detail in the office and he has spine credentials. MARLA
[2017-10-16] MEDS: CALCITRIOL 0.25 MCG CAP PO SCH (09:00)
[2017-10-16] MEDS: METOPROLOL TARTRATE 25 MG TAB PO SCH ×2 (09:00→20:23)
[2017-10-16] MEDS ORDERED: HYDROmorphone INJ 1 MG/ML SYR IV STA (09:19)
--- NOTE | 2017-10-16 09:55 | DIAGNOSTIC IMAGING REPORT ---
THORACIC SPINE WITHOUT HISTORY: 81 years-old Female t 7 fracture follow-up study to assess T7 compression deformity COMPARISON: CT thoracic spine 10/08/2017 TECHNIQUE: Multiple axial CT images of the thoracic spine were obtained without contrast. Coronal and sagittal reformatted images were obtained from the axial data set and submitted for review. A dose lowering technique was used consistent with the principals of GHADA. FINDINGS: 30% anterior endplate compression deformity of the T7 vertebral body appears unchanged from comparison CT 10/08/2017. There is however mildly progressed central endplate depression which measures 9 mm on today's study, previously measuring 11 mm. Mild linear sclerosis is noted within the mid vertebral body. There is minimal irregularity involving the posterior endplate at this level. No significant retropulsion, high-grade central canal or foraminal narrowing. There is minimal haziness within the adjacent paravertebral tissues. No large epidural hematoma. No fracture extension to the posterior elements. No additional acute compression fracture or subluxation. Severe intervertebral disc space narrowing redemonstrated at T11-T12. Multilevel Schmorl's nodes, endplate spurring and facet arthropathy without definite high-grade central canal or foraminal stenosis identified. Multilevel Schmorl's nodes also seen. There are calcifications of the tracheobronchial tree. Multinodular goiter. Fluid-filled distal esophagus. Surgical clips are seen near the gastroesophageal junction. Multiple low attenuating lesions of the kidneys are again seen suggesting cysts. Calcifications of the aorta. 4 mm noncalcified pulmonary nodule of the right lower lobe seen on image 162 series 3. IMPRESSION: 1. 30% anterior endplate compression deformity of the T7 vertebral body is again seen which appears acute to subacute in nature without significant retropulsion, high-grade central canal or foraminal narrowing. There is mildly worsened central endplate depression from comparison CT thoracic spine 10/08/2017. 2. Moderately demineralized appearance of the bones. 3. Multilevel degenerative changes again seen as above. The above report was generated using voice recognition software. It may contain grammatical, syntax or spelling errors. Electronically signed by: Silvano Mata M.D. 10/16/2017 9:54 AM Dictated Date/Time: 10/16/2017 9:43 AM
[2017-10-16] MEDS: FLUTICASONE PROPIONATE NA SPR 16 GM BTL NAE SCH (10:10)
[2017-10-16] MEDS: LORATADINE 10 MG TAB PO SCH (10:11)
[2017-10-16] MEDS: ETHACRYNIC ACID 25 MG TAB PO SCH (10:13)
[2017-10-16] MEDS: LEUCOVORIN CALCIUM 5 MG TAB PO SCH (10:13)
[2017-10-16] MEDS: METHIMAZOLE 5 MG TAB PO SCH (10:17)
[2017-10-16] MEDS: MAGNESIUM OXIDE 400 MG TAB PO SCH (10:17)
[2017-10-16] MEDS: GABAPENTIN 100 MG CAP PO SCH ×2 (10:18→13:54)
[2017-10-16] MEDS: ONDANSETRON INJ 2 MG/ML 2 ML VIAL IV PRN ×2 (10:46→17:37)
--- NOTE | 2017-10-16 10:55 | PROGRESS NOTE ---
DATE: 10/16/[address] of her thoracic spine today reveals no increased retropulsion, slight decrease in vertebral height. At this point in time, I think the care should involve pain management for potential nerve block technology and treatment plan. I have placed an urgent consult, not emergent consult for pain management. I have also talked to Dr. Willett, who is a nerve specialist partner of Dr. Florence, as Dr Florence has seen this patient in the past many times in the office. I have asked Dr. Willett to perform a consultation on her. He will do that sometime later today. It is nonemergent for his assessment and at that at this point in time, pain management is the most appropriate mechanism of control of symptoms. MARLA
[2017-10-16] MEDS: HYDROmorphone INJ 1 MG/ML SYR IV PRN ×5 (11:33→19:26)
[2017-10-16] MEDS ORDERED: NURSING VERBAL MED ORDER ONE ×2 (12:15)
[2017-10-16 15:02] VITALS: BP 94/48; PULSE 55; TEMP 36.6; O2SAT 96
--- NOTE | 2017-10-16 15:16 | Progress Note ---
Subjective Date of Service: Oct 16, 2017. Subjective Pt evaluation today including: conversation w/ patient, physical exam, chart review, lab review, review of studies, review of inpatient medication list Pt reports pain LUQ pain, sometimes radiating to back States 10 No fevers or chills Not worse on palpation States not improving and worsening on trunk flexion Problem List Medical Problems: (1) Abdominal pain Status: Acute (2) Back pain Status: Acute (3) Hypotension Status: Acute (4) Ischemic colitis Status: Acute (5) Rectal bleed Status: Acute (6) Rib pain Status: Acute Review of Systems Constitutional: No fever, No chills, No sweats, No weight loss ENT: No hearing loss, No unusual epistaxis, No nasal symptoms, No sore throat Respiratory: No cough, No sputum, No wheezing, No shortness of breath Cardiac: No chest pain, No orthopnea, No PND, No edema Abdomen: + pain, No nausea, No vomiting, No diarrhea, No constipation Musculoskeletal: + muscle pain, No joint pain, No swelling, No calf pain Female : No dysuria, No urinary frequency, No hematuria, No incontinence Neurologic: No memory loss, No paralysis, No weakness, No numbness/tingling Psychiatric: No depression symptoms, No anhedonism, No anxiety, No insomnia Endo: No fatigue, No excessive thirst Skin: No rash, No itch Objective Vital Signs Date Time Temp Pulse Resp B/P (MAP) Pulse Ox O2 Delivery O2 Flow Rate FiO2 10/16/17 15:02 36.6 55 18 94/48 (63) 96 Room Air 10/16/17 07:30 Room Air 10/16/17 06:50 36.4 55 16 101/62 (75) 96 Room Air 10/16/17 00:00 36.7 66 18 120/71 97 Room Air 10/15/17 23:02 74 20 106/68 96 10/15/17 22:37 70 18 113/69 97 Room Air 10/15/17 21:00 63 20 109/63 94 Room Air 10/15/17 20:41 63 20 114/60 96 10/15/17 20:09 69 16 135/61 98 Room Air 10/15/17 18:53 73 10/15/17 18:42 95 Room Air 10/15/17 16:53 37.0 72 16 167/145 98 Room Air Physical Exam General Appearance: WD/WN, no apparent distress Eyes: normal inspection, PERRL, EOMI, sclerae normal Neck: supple, no adenopathy, thyroid normal, no JVD Respiratory/Chest: chest non-tender, lungs clear, normal breath sounds, no respiratory distress Cardiovascular: regular rate, rhythm, no edema, no gallop, no JVD Abdomen: normal bowel sounds, soft, no organomegaly, + tenderness Extremities: normal range of motion, non-tender, normal inspection, no pedal edema Neurologic/Psychiatric: no motor/sensory deficits, alert, normal mood/affect, oriented x 3 Skin: normal color, warm/dry, no rash Lymphatic: no adenopathy Laboratory Results Last 24 Hours Test 10/15/17 18:18 10/15/17 18:36 10/16/17 11:22 10/16/17 12:14 Urine Color YELLOW Urine Appearance CLEAR Urine pH 7.0 Urine Specific Mcdonald 1.010 Urine Protein NEG Urine Glucose (UA) NEG Urine Ketones NEG Urine Occult Blood NEG Urine Nitrite NEG Urine Bilirubin NEG Urine Urobilinogen NEG Urine Leukocyte Esterase TRACE Urine WBC (Auto) 1-5 /hpf Urine RBC (Auto) 0-4 /hpf Urine Hyaline Casts (Auto) 0 /lpf Urine Epithelial Cells (Auto) 10-20 /lpf Urine Bacteria (Auto) NEG White Blood Count 8.32 K/uL Red Blood Count 4.19 M/uL Hemoglobin 13.2 g/dL Hematocrit 40.1 % Mean Corpuscular Volume 95.7 fL Mean Corpuscular Hemoglobin 31.5 pg Mean Corpuscular Hemoglobin Concent 32.9 g/dl Platelet Count 193 K/uL Mean Platelet Volume 9.2 fL Neutrophils (%) (Auto) 72.9 % Lymphocytes (%) (Auto) 15.7 % Monocytes (%) (Auto) 8.1 % Eosinophils (%) (Auto) 2.3 % Basophils (%) (Auto) 0.4 % Neutrophils # (Auto) 6.07 K/uL Lymphocytes # (Auto) 1.31 K/uL Monocytes # (Auto) 0.67 K/uL Eosinophils # (Auto) 0.19 K/uL Basophils # (Auto) 0.03 K/uL RDW Standard Deviation 50.8 fL RDW Coefficient of Variation 14.5 % Immature Granulocyte % (Auto) 0.6 % Immature Granulocyte # (Auto) 0.05 K/uL Red Blood Cell Morphology Unremarkable Prothrombin Time 10.5 SECONDS Prothromb Time International Ratio 1.0 Activated Partial Thromboplast Time 25.2 SECONDS Partial Thromboplastin Ratio 1.0 Sodium Level 137 mmol/L Potassium Level 4.2 mmol/L Chloride Level 104 mmol/L Carbon Dioxide Level 28 mmol/L Anion Gap 5.0 mmol/L Blood Urea Nitrogen 40 mg/dl Creatinine 1.32 mg/dl Est Creatinine Clear Calc Drug Dose 35.7 ml/min Estimated GFR () 43.7 Estimated GFR (Non- 37.7 BUN/Creatinine Ratio 30.5 Random Glucose 93 mg/dl Calcium Level 8.7 mg/dl Magnesium Level 2.4 mg/dl Total Bilirubin 0.6 mg/dl Aspartate Amino Transf (AST/SGOT) 22 U/L Alanine Aminotransferase (ALT/SGPT) 24 U/L Alkaline Phosphatase 72 U/L Troponin I < 0.015 ng/ml Total Protein 6.8 gm/dl Albumin 3.5 gm/dl Globulin 3.3 gm/dl Albumin/Globulin Ratio 1.1 Lactic Acid Level 1.5 mmol/L 25-Hydroxy Vitamin D Total 19.0 ng/ml Assessment and Plan Patient is an 81-year-old female who is transferred to the ICU for increasing left side > right side rib/abd pain with non-traumatic spinal compression fracture due to severe osteoporosis with intractable pain. Left upper quadrant pain Seems more MSK in nature CT abd/pelvis unremarkable Pain management consulted for possible never block Cont dilaudid PRN at this time Spinal Compression Fracture/Osteoporosis Consult Orthopedics Pain currently well controlled after receiving 4mg Morphine x 2 * 0.5 mg Dilaudid q 3h PRN pain * Toradol 30mg IV x 1 now Monitor for AMS/Respiratory Depression * Pt DNI/DNR now Neuropathy Continue Home Neurontin Renal Disease Monitor renally dosed medications Continue 10mg Lisinopril PO Hyperthyroidism: Methimazole 250Mg PO qAM CAD/HF: Metoprolol 12.5Mg PO BID Atorvastatin 20Mg PO HS Chronic Malabsorption Continue Home Regimen Vit D, Mag, Ca DVT Prophylaxis: Heparin 5000U BID
--- NOTE | 2017-10-16 15:17 | CONSULTATION REPORT ---
DATE OF CONSULTATION: 10/16/2017 CHIEF COMPLAINT: Costal rib pain on the left hand side. HISTORY OF PRESENT ILLNESS: Mariangel is a most delightful. She is 81, conversant, great historian, able to relay her complicated history to me pretty readily here this afternoon on Tuesday at approximately 2:30 p.m. Her pain is a little bit different, it is more costal pain just as was stated on her history and physical. It seems more rib cage progressing anterior towards the sternal region. She does have a history of a compression fracture and I looked at the images of T7, it seems like it is acute or subacute but ironically she has no back pain, no back pain with percussion with percussion. The pain is circumferential, certainly it could be rib related or nerve related, but I am not so sure it is related to the thoracic spine issue. Her medical history is significant, amazing and she is reina to be around. From a spinal standpoint, she has had osteoporosis for 30 some years. She also had spinal surgery with a subsequent infection, had to have I&D of lumbar spine with multiple times of antibiotics down at [facility] after her surgery here locally. PAST MEDICAL HISTORY: Includes sepsis, osteoporosis, hyperlipidemia, scoliosis, depression, compression fracture, connective tissue disorder, hypothyroidism, and heart failure. MEDICATIONS: Numerous and listed. REVIEW OF SYSTEMS: Denies any blurred vision, double vision. Does have early onset of macular degeneration. Slight loss of hearing. Denies current chest pain or palpitations, no current nausea or vomiting. Her major complaint is this musculoskeletal back to rib, circumferential chest pain. PHYSICAL EXAMINATION: VITAL SIGNS: Blood pressure 130/80; pulse 80, regular. GENERAL: Alert, oriented. Mentation normal. NEUROLOGICALLY: Intact. SKIN: No vascular issues, no zoster rashes on her skin surface. IMAGES: Reviewed demonstrating a compression fracture at T7. No retropulsion, no high grade degenerative changes. ASSESSMENT: An 81-year-old delightful female with increasing rib cage pain. She also has a nontraumatic spinal compression fracture due to her severe osteoporosis, I am not sure if related. She also has baseline renal disease and gastrointestinal issues. DISPOSITION: 1. At this point in time it is a very difficult situation and I it will not be easy. 2. We will plan to have pain management see her, possibly some rib injections may be helpful here in the hospital setting and she may be a candidate for a TENS unit. We need to go very carefully with the narcotics that is pretty obvious. She is not a candidate for surgical intervention. If she gets more thoracic pain, I would consider a kyphoplasty of T7, but that is renally not her complaint. I will follow her daily. We look forward to pain management assessment, they may be able to help her. I know there is no guarantee in good medical management.
[2017-10-16] MEDS: POLYETHYLENE (MIRALAX) 17 GM PACK PO SCH (20:17)
[2017-10-16] MEDS: LACTOBACILLUS ACIDOPHILUS (FLORANEX) TAB PO SCH (20:18)
[2017-10-16] MEDS: ATORVASTATIN 20 MG TAB PO SCH (20:19)
[2017-10-16] MEDS: LISINOPRIL 10 MG TAB PO SCH (20:21)
[2017-10-16] MEDS ORDERED: GABAPENTIN 100 MG CAP PO SCH (21:00)
[2017-10-16 22:51] VITALS: BP 112/68; PULSE 67; TEMP 36.8; O2SAT 96
[2017-10-17] VITALS (7 sets, daily range): BP systolic 100–117; BP diastolic 53–69; PULSE 59–74; TEMP 36.4–37.1; O2SAT 94–97
[2017-10-17] MEDS: HYDROmorphone INJ 1 MG/ML SYR IV PRN ×4 (00:46→15:28)
[2017-10-17] MEDS: HEPARIN SOD 5000 UNIT/0.5 ML CARP SQ SCH ×2 (05:40→18:14)
[2017-10-17] MEDS: GABAPENTIN 100 MG CAP PO SCH ×3 (08:02→21:03)
[2017-10-17] MEDS: CALCITRIOL 0.25 MCG CAP PO SCH (08:03)
[2017-10-17] MEDS: MAGNESIUM OXIDE 400 MG TAB PO SCH (08:03)
[2017-10-17] MEDS: CHOLECALCIFEROL 1000 INTER.UNIT TAB PO SCH (08:03)
[2017-10-17] MEDS: ETHACRYNIC ACID 25 MG TAB PO SCH (08:03)
[2017-10-17] MEDS: LEUCOVORIN CALCIUM 5 MG TAB PO SCH (08:03)
[2017-10-17] MEDS: LACTOBACILLUS ACIDOPHILUS (FLORANEX) TAB PO SCH ×2 (08:04→20:56)
[2017-10-17] MEDS: LORATADINE 10 MG TAB PO SCH (08:04)
[2017-10-17] MEDS: FLUTICASONE PROPIONATE NA SPR 16 GM BTL NAE SCH (08:05)
[2017-10-17] MEDS: METOPROLOL TARTRATE 25 MG TAB PO SCH ×2 (08:05→21:01)
[2017-10-17] MEDS: METHIMAZOLE 5 MG TAB PO SCH (08:10)
[2017-10-17] MEDS: ONDANSETRON INJ 2 MG/ML 2 ML VIAL IV PRN ×2 (08:14→20:39)
[2017-10-17] MEDS ORDERED: OXYCODONE/ACETAMINOPHEN 5-325 TAB PO PRN (09:15)
[2017-10-17 10:12] LABS: BUN/CREATININE RATIO 22.6 (10-20); CALCIUM 7.9 mg/dl (8.5-10.1); CREATININE 1.89 mg/dl (0.60-1.20); POTASSIUM 4.5 mmol/L (3.5-5.1)
[2017-10-17] MEDS: LIDODERM (LIDOCAINE) PATCH 5% TD SCH (10:42)
[2017-10-17] MEDS: BACLOFEN 10 MG TAB PO PRN (10:44)
[2017-10-17] MEDS: DULOXETINE HCL 20 MG CAP PO SCH (10:45)
[2017-10-17] MEDS: TAPENTADOL ER 50 MG TABCR PO SCH ×2 (10:51→21:04)
--- NOTE | 2017-10-17 11:30 | Gastrointestinal Consultation ---
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 Pt was seen and evaluated, chart reviewed. Of note, pt was in ED x 2 for her symptoms. She tells me about a week or so ago, she was reaching to change a light bulb when she felt a pull. Had immediate pain from her left rib cage, left breast into her back. She notes positional changes and palpation make this pain worse. She is unsure of PO intake changes the pain. She does not associated this pain with abdominal pain, when I ask her if she has abdominal pain she denies this. She notes she was given morphine and other narcotics for her symptoms, which did not improve her symptoms. Was seen by orthopedics who is following during course of admission but had suggested GI evaluation. She tells me she had severe constipation since using narcotics from the ED. Was not relieved with Miralax x 4. Finally had a large BM after taking colytely prep. Stool was brown , no black or bloody stools. She denies any epigastric pain, abdominal pain, burping, belching. She has new dysphagia - notes twice since admission she has had food stick when swallowing. Sensations lasts for a few minutes and spontaneously resolved. Last occurred this AM. She is tolerating her secretions , and was eating additional food of her breakfast tray when she was evaluated this AM. She tells me she feels terrible. She notes continued neuropathy, question if his was from IV Flagyl use during her c.diff sepsis admission. Denies fever, chills, CP, SOB. Lives at home and cares for her son, who has a seizure disorder. Wants to go home but cannot handle the pain. Does not want to be discharged to a nursing facility. Thoracic CT 10/16/17: 30% anterior endplate compression deformity of the T7 vertebral body is again seen which appears acute to subacute in nature without significant retropulsion, high-grade central canal or foraminal narrowing. There is mildly worsened central endplate depression from comparison CT thoracic spine 10/08/2017. Moderately demineralized appearance of the bones. Multilevel degenerative changes again seen as above. CT ABD/Pelvis 10/15/17: No bowel obstruction. Moderate increase in size of a 7.4 x 6.3 cm right adnexal lesion. This measures water attenuation and therefore may reflect a cyst however is abnormal in a postmenopausal patient. A follow-up pelvic ultrasound to assess for complexity is recommended. Possible 1.6 cm hypodense pancreatic neck lesion. This could reflect a side branch IPMN. A nonemergent pancreatic protocol CT is recommended. Redemonstration of a T7 compression fracture with interval increase in vertebral body height loss since CT of October 08, 2017. This fracture is likely acute to subacute. KUB 10/15/17: No free air. Mild dilatation of a colonic loop within the right mid abdomen, measuring 7.7 cm. This is nonspecific but there is no convincing evidence for a bowel obstruction. No acute cardiopulmonary findings. Possible 4 mm right renal calculus. Past Medical/Surgical History Medical Problems: (1) Abdominal pain Status: Acute (2) Back pain Status: Acute (3) Hypotension Status: Acute (4) Ischemic colitis Status: Acute (5) Rectal bleed Status: Acute (6) Rib pain Status: Acute Past Medical History: abd pain, PUD, scleroderma, c.diff, depression, GERD, gastroparesis, CKD-3, pyelonephritis, dyslipidemia Past Surgical History: Cholecystitis, Appendectomy, Hysterectomy, Subtotal gastrectomy w/ vagotomy, EGD, Colonoscopy, Colonoscopy for stool transplant Family History Cancer Gallbladder disease Heart disease Hypertension Social History Smoking Status: Former Smoker Alcohol Use: none Drug Use: none Marital Status: Housing Status: lives with family Occupation Status: retired Allergies Coded Allergies: Adhesives (Verified Allergy, Severe, BLISTERING, 10/15/17) PAPER TAPE CAUSES SEVERE BLISTERING Cefuroxime (Verified Allergy, Unknown, INEFFECTIVE, 10/15/17) Ciprofloxacin (Verified Allergy, Unknown, INEFFECTIVE, 10/15/17) Erythromycin (Verified Allergy, Unknown, SEVERE VOMITING, 10/15/17) Furosemide (Verified Allergy, Unknown, HIVES, SULFA ALLERGY TO LOOP DIURETICS, 10/15/17) Hydrochlorothiazide (Verified Allergy, Unknown, HIVES, 10/15/17) Levofloxacin (Verified Allergy, Unknown, INEFFECTIVE, 10/15/17) Metoclopramide (Verified Allergy, Unknown, anxiety attacks, 10/15/17) Sulfa Antibiotics (Verified Allergy, Unknown, HIVES AND ANAPHYLAXIS, ) Metronidazole (Verified Adverse Reaction, Severe, Neuropathy, 10/15/17) Meperidine (Verified Adverse Reaction, Unknown, INEFFECTIVE FOR PT, ) INAFFECTIVE FOR PATIENT Uncoded Allergies: all diuretics (Allergy, Severe, throat swells, 06/10/17) Current Medications Home Meds and Scripts Medications Dose Route/Sig Max Daily Dose Days Date Category Dose Instructions Tylenol (Acetaminophen) 500 Mg Tab 500 Mg PO UD PRN 10/08/17 Reported Mometasone Furoate (Mometasone Furoate (Nasal)) 50 Mcg/Act Spr 1 [place] ROBIN DAILY 10/08/17 Reported Preservision Areds 2 (Multiple Vitamins W/ Minerals) 1 Cap Cap 1 Cap PO BID 10/08/17 Reported Fluocinolone Acetonide (Fluocinolone Acetonide (Otic)) 0.01 % Oil 5 Drops OTL DAILY 10/08/17 Reported Claritin (Loratadine) 10 Mg Tab 10 Mg PO QAM 10/08/17 Reported Prolia (Denosumab) 60 Mg/Ml Benita 60 Mg INJ UD 10/08/17 Reported Leucovorin Calcium 5 Mg Tab 5 Mg PO DAILY 10/08/17 Reported Biotin 1,000 Mcg Tab 1,000 Mcg PO QAM 10/08/17 Reported Lisinopril 10 Mg Tab 10 Mg PO HS 10/08/17 Reported Neurontin (Gabapentin) 100 Mg Cap 200 Mg PO HS 10/08/17 Reported Neurontin (Gabapentin) 100 Mg Cap 100 Mg PO BID 06/09/17 Reported Vitamin D3 (Cholecalciferol) 1,000 Unit Tab 3,000 Unit PO DAILY 90 03/12/17 Reported Cyanocobalamin 1,000 Mcg/Ml Inj 1 Dose INJ MONTHLY 03/12/17 Reported Magnesium (Magnesium Oxide) 250 Mg Tab 250 Mg PO QAM 05/18/16 Reported Golytely (Peg [id number]-Nud-Srv Bicarb-Sod Ch) 1 Benita Benita 1-3 Dose PO QPM 05/18/16 Reported 1-3 GLASSES STARTING AT 5PM DEPENDING ON DEGREE OF ABDOMINAL PAIN AND NEED Rocaltrol Cap (Calcitriol) 0.25 Mcg Cap 0.25 Mcg PO QAM 06/04/15 Reported Prednisone 5 Mg Tab 5 Mg PO QAM 06/04/15 Reported Lopressor (Metoprolol Tartrate) 25 Mg Tab 12.5 Mg PO BID 08/29/14 Reported 1/2 TABLET DOSE Ultram (Tramadol HCl) 50 Mg Tab 50 Mg PO HS PRN 06/09/14 Reported Edecrin (Ethacrynic Acid) 25 Mg Tab 100 Mg PO QAM 06/09/14 Reported Methimazole (Methimazole) 5 Mg Tab 2.5 Mg PO QAM 06/09/14 Reported 1/2 TABLET DOSE Lipitor (Atorvastatin Calcium) 20 Mg Tab 20 Mg PO HS 07/26/13 Reported Domperidone Bpbp 10 Mg PO QID 03/06/10 Reported Review of Systems Constitutional: No fever, No chills ENT: + trouble swallowing, + pain on swallowing Respiratory: No cough, No shortness of breath Cardiac: No chest pain, No edema Abdomen: + dysphagia, No pain, No nausea, No vomiting, No diarrhea, No constipation, No GI bleeding Physical Exam Date Time Temp Pulse Resp B/P (MAP) Pulse Ox O2 Delivery O2 Flow Rate FiO2 10/17/17 10:36 Room Air 10/17/17 08:36 94 Room Air 10/17/17 08:05 37.1 74 18 117/69 (85) 94 Room Air 10/17/17 00:35 Room Air 10/16/17 22:51 36.8 67 16 112/68 (83) 96 Room Air 10/16/17 15:15 Room Air 10/16/17 15:02 36.6 55 18 94/48 (63) 96 Room Air General Appearance: + pertinent finding (pt is in no acute distress, laying on her side in bed) Eyes: PERRL ENT: hearing grossly normal Neck: supple Respiratory/Chest: lungs clear, normal breath sounds Cardiovascular: regular rate, rhythm Abdomen: normal bowel sounds, non tender, soft, no organomegaly, no pulsatile mass Neurologic/Psych: alert, normal mood/affect, oriented x 3 Skin: normal color Laboratory Results Last 24 Hours Test 10/16/17 12:14 10/17/17 09:28 25-Hydroxy Vitamin D Total 19.0 ng/ml Sodium Level 130 mmol/L Potassium Level 4.5 mmol/L Chloride Level 98 mmol/L Carbon Dioxide Level 26 mmol/L Anion Gap 7.0 mmol/L Blood Urea Nitrogen 43 mg/dl Creatinine 1.89 mg/dl Est Creatinine Clear Calc Drug Dose 22.8 ml/min Estimated GFR () 28.3 Estimated GFR (Non- 24.5 BUN/Creatinine Ratio 22.6 Random Glucose 91 mg/dl Calcium Level 7.9 mg/dl Impression Patient is a 81 year old female w/ gastroparesis and chronic constipation due to opioid dependance who presented to the ED for evaluation of LUQ pain w/ radiation to her side and back after reaching for [employer] two weeks ago. She failed outpatient treatment w/ rest and narcotics and was readmitted through the ED. Unclear etiology of her symptoms but seems to be musculoskeletal she notes her pain has intensified since using PO narcotics - question if this is related to her underlying gastroparesis. She also voices concern for new onset dysphagia. Plan - ?Dysphagia - soft, slippery diet - speech therapy evaluation - plan for EGD outpatient - Left sided pain - limit narcotic use - Tylenol for pain - Gastroparesis/Hypomotility - gastroparesis diet - Miralax 17 gm BID - Can consider IV dose of Reglan (allergy is anxiety) or E-mycin (unclear on allergy) - Abnormal imaging - ? IPMN on recent CT - Outpatient EUS vs CT w/ pancreatic protocol to be discussed further with collaborating physician GI to sign off, will arrange for outpatient EGD +/- EUS for evaluation of dysphagia. Please call with any questions or concerns I performed a history and physical examination of the patient, I have discussed the patient's management with Tenisha. Please refer to the SUEDE CLEANER's note for the documented findings and plan of care. Patient with musculoskeletal pain and vertebral compression fracture. No signioficant GI symptoms. Reports slight dysphagia. CT scan abdomen unremarkable except for possible IPMN. Plan: EGD+EUS as outpatient next week. Meanwhile PO PPI.
--- NOTE | 2017-10-17 12:32 | Orthopedic Progress Note ---
Orthopedic Progress Note Date of Service Oct 17, 2017. Subjective Reports: complaints (has continued pain.), Denies: chest pain, SOB, nausea / vomiting, light headedness Additional Notes: states she slept fair. She is concerned about what is causing her pain, and what is causing it to get worse. Objective A&O x3 Intact motor function to her hips and knees. Complains of pain with palpation of both lower extremities. No pain with palpation of her abdomen or chest. Date Time Temp Pulse Resp B/P (MAP) Pulse Ox O2 Delivery O2 Flow Rate FiO2 10/17/17 11:36 36.7 66 16 105/65 (78) 97 Room Air 10/17/17 10:36 Room Air 10/17/17 08:36 94 Room Air 10/17/17 08:05 37.1 74 18 117/69 (85) 94 Room Air 10/17/17 00:35 Room Air 10/16/17 22:51 36.8 67 16 112/68 (83) 96 Room Air 10/16/17 15:15 Room Air 10/16/17 15:02 36.6 55 18 94/48 (63) 96 Room Air Assessment & Plan Assessment: chronic radicular pain Plan: Patient has been seen by Dr. Willett. We will sign off at this point. Pain management has been consulted. Explained to the patient that sometimes no definitive source for pain is identified. Continue with current medication regimen. (1) Back pain Acute (2) Musculoskeletal chest pain Acute (3) Compression fracture (4) renal disease Chronic (5) Osteoporosis Chronic
--- NOTE | 2017-10-17 12:59 | Progress Note ---
Subjective Date of Service: Oct 17, 2017. Subjective Pt evaluation today including: conversation w/ patient, physical exam, chart review, lab review, review of studies, review of inpatient medication list Pt in moderate distress Reports pain worsening when flexing at truck No N/V Pain still locating in left upper quadrant and sometimes wrapping around the back Pt reports poor appetite and constipation Problem List Medical Problems: (1) Abdominal pain Status: Acute (2) Back pain Status: Acute (3) Hypotension Status: Acute (4) Ischemic colitis Status: Acute (5) Rectal bleed Status: Acute (6) Rib pain Status: Acute Review of Systems Constitutional: No fever, No chills, No sweats, No weakness Eyes: No worsening of vision, No eye pain, No redness, No discharge Respiratory: No cough, No sputum, No wheezing, No shortness of breath Cardiac: No chest pain, No orthopnea, No PND, No edema Abdomen: + pain, + constipation, No nausea, No vomiting, No diarrhea Musculoskeletal: + muscle pain, No joint pain, No swelling, No calf pain Female : No dysuria, No urinary frequency, No hematuria, No incontinence Neurologic: No memory loss, No paralysis, No weakness, No numbness/tingling Psychiatric: No depression symptoms, No anhedonism, No anxiety, No insomnia Endo: No fatigue, No excessive thirst Skin: No rash, No itch Objective Vital Signs Date Time Temp Pulse Resp B/P (MAP) Pulse Ox O2 Delivery O2 Flow Rate FiO2 10/17/17 11:36 36.7 66 16 105/65 (78) 97 Room Air 10/17/17 10:36 Room Air 10/17/17 08:36 94 Room Air 10/17/17 08:05 37.1 74 18 117/69 (85) 94 Room Air 10/17/17 00:35 Room Air 10/16/17 22:51 36.8 67 16 112/68 (83) 96 Room Air 10/16/17 15:15 Room Air 10/16/17 15:02 36.6 55 18 94/48 (63) 96 Room Air Physical Exam General Appearance: WD/WN, + moderate distress Eyes: normal inspection, PERRL, EOMI, sclerae normal Neck: supple, no adenopathy, thyroid normal, no JVD Respiratory/Chest: chest non-tender, lungs clear, normal breath sounds, no respiratory distress Cardiovascular: regular rate, rhythm, no edema, no gallop, no JVD Abdomen: normal bowel sounds, soft, no organomegaly, + tenderness (tenderness in lef brittany quadrant, palpation does NOT exacerbate) Extremities: normal range of motion, non-tender, normal inspection, no pedal edema Neurologic/Psychiatric: no motor/sensory deficits, alert, normal mood/affect, oriented x 3 Skin: normal color, warm/dry, no rash Lymphatic: no adenopathy Laboratory Results Last 24 Hours Test 10/17/17 09:28 Sodium Level 130 mmol/L Potassium Level 4.5 mmol/L Chloride Level 98 mmol/L Carbon Dioxide Level 26 mmol/L Anion Gap 7.0 mmol/L Blood Urea Nitrogen 43 mg/dl Creatinine 1.89 mg/dl Est Creatinine Clear Calc Drug Dose 22.8 ml/min Estimated GFR () 28.3 Estimated GFR (Non- 24.5 BUN/Creatinine Ratio 22.6 Random Glucose 91 mg/dl Calcium Level 7.9 mg/dl Assessment and Plan Patient is an 81-year-old female who is transferred to the ICU for increasing left side > right side rib/abd pain with non-traumatic spinal compression fracture due to severe osteoporosis with intractable pain. Left upper quadrant pain Seems more MSK in nature CT abd/pelvis unremarkable Pain management consulted for possible never block, but will try medical management first, started on Lidoderm patch 5% apply daily Duloxetine 20 mg PO BID Gabapentin 200 mg PO TID Cont dilaudid PRN at this time Await response at this time Spinal Compression Fracture/Osteoporosis Consulted Orthopedics Currently no back pain Received 4mg Morphine x 2 * 0.5 mg Dilaudid q 3h PRN pain * Toradol 30mg IV x 1 now Monitor for AMS/Respiratory Depression * Pt DNI/DNR now Neuropathy Cont neurontin Renal Disease Monitor renally dosed medications Continue 10mg Lisinopril PO Hyperthyroidism: Methimazole 250Mg PO qAM CAD/HF: Metoprolol 12.5Mg PO BID Atorvastatin 20Mg PO HS Chronic Malabsorption Continue Home Regimen Vit D, Mag, Ca DVT Prophylaxis: Heparin 5000U BID
--- NOTE | 2017-10-17 13:21 | PROGRESS NOTE ---
DATE: 10/17/2017 SUBJECTIVE: The patient resting comfortably at present. At this point in time, will transfer care to Dr. Rogerio Florence, orthopedics as they cared for her in the past and Dr. Willett for spine care. Will sign off.
--- NOTE | 2017-10-17 14:32 | Pain Management Consultation ---
Pain Management Consultation Date of Consultation Oct 17, 2017. Reason for Consultation Left Sided chest wall pain Pain Location 1 - History 81-year-old female with a one-week history of left-sided chest wall pain wrapping around from her mid axillary line to her sternal border around T7 dermatome. 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 She states that she tried conservative measures for a number of days and ultimately went to the emergency room and was given a prescription for oxycodone. She states that that was minimally efficacious in diminishing her pain and subsequently re-presented to the emergency room and was admitted. She denies any type of pain in this area before. When specifically questioned about possibility of onset of herpes zoster she states that she's had shingles in the past and this does not feel similar to her prior instance. She admits that pain is burning, radiating, and electric in character as well as stabbing at times creating difficulty with coughing but not with deep breathing. She notes that her pain ranges between 0 and 10 out of 10. She denies having any pain similar to this in the past. She reports minimal benefit with IV hydromorphone 1 mg every 2 hours. She is crying and distraught at times during this examination as she states she feels frustrated and unable to cope with her pain. She notes constipation with her current dosing of narcotics. The patient notes that she tolerates interventional procedures very poorly and has had difficulty with MRSA abscesses as well as C. difficile in the past. She states that it seems every time she has a procedure done she has some significant complication and had a severe case of septic shock in approximately March of this year. She states that she's been diagnosed with peripheral neuropathy and it is so painful in her knee distal to her feet that she has stopped walking and is now wheelchair bound. She is hesitant to try medications as she is concerned about her ability to metabolize and excrete them given her significant renal insufficiency. She wishes for all medication changes to be approved by nephrology, Dr. Lim to prior to medication changes. Past Medical/Surgical History (1) C DIFF POA (2) E COLI UTI POA (3) Appendectomy (4) Benign hypertension (5) Cholecystectomy (6) Chronic congestive heart failure (7) Colitis (8) Colonoscopy (9) Depression (10) Gastroesophageal reflux disease (11) Hyperlipidemia (12) Hysterectomy (13) PERSONAL HISTORY OF PEPTIC ULCER DISEASE (14) Pyelonephritis (15) dextroscoliosis (16) orthopedic surgery (17) Dizziness (18) Acute renal failure (19) Vertigo (20) Sepsis (21) Back pain (22) Osteoporosis (23) renal disease (24) Compression fracture (25) Musculoskeletal chest pain (26) Vertigo (27) Abdominal pain (28) Back pain (29) Hypotension (30) Ischemic colitis (31) Rectal bleed (32) Rib pain Family History Cancer Gallbladder disease Heart disease Hypertension Social / Work History Smokeless Tobacco Use: No Alcohol Use: none Drug Use: none Marital Status: Housing Status: lives with family Occupation: retired Allergies Coded Allergies: Adhesives (Verified Allergy, Severe, BLISTERING, 10/15/17) PAPER TAPE CAUSES SEVERE BLISTERING Cefuroxime (Verified Allergy, Unknown, INEFFECTIVE, 10/15/17) Ciprofloxacin (Verified Allergy, Unknown, INEFFECTIVE, 10/15/17) Erythromycin (Verified Allergy, Unknown, SEVERE VOMITING, 10/15/17) Furosemide (Verified Allergy, Unknown, HIVES, SULFA ALLERGY TO LOOP DIURETICS, 10/15/17) Hydrochlorothiazide (Verified Allergy, Unknown, HIVES, 10/15/17) Levofloxacin (Verified Allergy, Unknown, INEFFECTIVE, 10/15/17) Metoclopramide (Verified Allergy, Unknown, anxiety attacks, 10/15/17) Sulfa Antibiotics (Verified Allergy, Unknown, HIVES AND ANAPHYLAXIS, ) Metronidazole (Verified Adverse Reaction, Severe, Neuropathy, 10/15/17) Meperidine (Verified Adverse Reaction, Unknown, INEFFECTIVE FOR PT, ) INAFFECTIVE FOR PATIENT Uncoded Allergies: all diuretics (Allergy, Severe, throat swells, 06/10/17) Medications Current Inpatient Medications Medications (Trade) Dose Ordered Sig/[place] Route Start Time Stop Time Status Last Admin Dose Admin Acetaminophen (Tylenol Tab) 650 mg Q4H PRN PO 10/15/17 22:00 11/14/17 21:59 Al Hydrox/Mg Hydrox/Simethicone (Maalox Max Susp) 15 ml Q4H PRN PO 10/15/17 22:00 11/14/17 21:59 Magnesium Hydroxide (Milk Of Magnesia Susp) 30 ml Q6H PRN PO 10/15/17 22:00 11/14/17 21:59 Polyethylene (Miralax Powder Packet) 17 gm DAILY PRN PO 10/15/17 22:00 11/14/17 21:59 Ondansetron HCl (Zofran Inj) 4 mg Q6H PRN IV 10/15/17 22:00 11/14/17 21:59 10/17/17 08:14 4 MG Heparin Sodium (Porcine) (Heparin Sq 5000 Unit/0.5ml) 5,000 unit Q12H SQ 10/16/17 06:00 11/15/17 05:59 10/17/17 05:40 5,000 UNIT Atorvastatin Calcium (Lipitor Tab) 20 mg HS PO 10/16/17 21:00 11/15/17 20:59 10/16/17 20:19 20 MG Calcitriol (Rocaltrol Cap) 0.25 mcg QAM PO 10/16/17 09:00 11/15/17 08:59 10/17/17 08:03 0.25 MCG Ethacrynic Acid (Edecrin Tab) 100 mg QAM PO 10/16/17 09:00 11/15/17 08:59 10/17/17 08:03 100 MG Leucovorin Calcium (Leucovorin Calcium Tab) 5 mg DAILY PO 10/16/17 09:00 11/15/17 08:59 10/17/17 08:03 5 MG Lisinopril (Zestril Tab) 10 mg HS PO 10/16/17 21:00 11/15/17 20:59 10/16/17 20:21 10 MG Loratadine (Claritin Tab) 10 mg QAM PO 10/16/17 09:00 11/15/17 08:59 10/17/17 08:04 10 MG Methimazole (Methimazole Tab) 2.5 mg QAM PO 10/16/17 09:00 11/15/17 08:59 10/17/17 08:10 2.5 MG Metoprolol Tartrate (Lopressor Tab) 12.5 mg BID PO 10/16/17 09:00 11/15/17 08:59 10/17/17 08:05 12.5 MG Prednisone (PredniSONE TAB) 5 mg QAM PO 10/16/17 09:00 11/15/17 08:59 10/17/17 08:05 5 MG Miscellaneous Information (Order Awaiting Action) 1 ea QS N/A 10/16/17 08:00 11/15/17 07:59 Miscellaneous Information (Order Awaiting Action) 1 ea QS N/A 10/16/17 08:00 11/15/17 07:59 Magnesium Oxide (Mag-Ox Tab) 400 mg QAM PO 10/16/17 09:00 11/15/17 08:59 10/17/17 08:03 400 MG Fluticasone Propionate (Flonase Nasal Pavo) 2 sprays DAILY ROBIN 10/16/17 09:00 11/15/17 08:59 10/16/17 10:10 2 SPRAYS Polyethylene (Miralax Powder Packet) 17 gm DAILY@1999 PO 10/16/17 20:00 11/15/17 19:59 10/16/17 20:17 17 GM Miscellaneous (Iv Fluids Completed) 1 ea PRN PRN N/A 10/15/17 22:45 10/15/18 22:44 Lactobacillus Acidophilus (Floranex Tab) 4 tab BID PO 10/16/17 21:00 11/15/17 20:59 10/17/17 08:04 4 TAB Cholecalciferol (Vitamin D Tab) 3,000 inter.unit QAM PO 10/17/17 09:00 11/16/17 08:59 10/17/17 08:03 3,000 INTER.UNIT Gabapentin (Neurontin Cap) 200 mg TID PO 10/17/17 14:00 11/16/17 13:59 Lidocaine (Lidoderm Patch 5%) 1 patch QAM TD 10/17/17 09:00 11/16/17 08:59 10/17/17 10:42 1 PATCH Miscellaneous (Remove Lidoderm Patch) 1 ea DAILY@21 N/A 10/17/17 21:00 11/16/17 20:59 Tapentadol (Nucynta Er Tab) 50 mg Q12 PO 10/17/17 09:00 11/16/17 08:59 10/17/17 10:51 50 MG Baclofen (Lioresal Tab) 5 mg TID PRN PO 10/17/17 09:15 11/16/17 09:14 10/17/17 10:44 5 MG Oxycodone/ Acetaminophen (Percocet 5-325mg Tab) 1 tab Q4H PRN PO 10/17/17 09:15 10/31/17 09:14 Hydromorphone HCl (Dilaudid Inj) 1 mg Q3H PRN IV 10/17/17 09:15 10/31/17 09:14 Duloxetine HCl (Cymbalta Cap) 20 mg QAM PO 10/17/17 10:00 11/16/17 09:59 10/17/17 10:45 20 MG Psyllium Hydrophilic Mucilloid (Metamucil Powder) 1 pkt BID PO 10/17/17 21:00 11/16/17 20:59 Review of Systems 10 point review of systems was otherwise negative aside from HPI Physical Exam Height & Weight: Height 5 feet, 2.00 inches. Weight 79.300 (Kilograms) 174 (Pounds) Last Vital Signs Documentation Date Time Temp Pulse Resp B/P (MAP) Pulse Ox O2 Delivery O2 Flow Rate FiO2 10/17/17 11:36 36.7 66 16 105/65 (78) 97 Room Air Exam: GENERAL: 81-year-old female who is awake, alert and oriented. Appears well developed. Is in no distress at the present time while lying flat but does have notable wincing with any movement. PSYCHIATRIC: Demonstrates normal and clear sensorium. Mood and affect are appropriate. Short-term and long-term memory is intact. HEAD AND NECK: No obvious trauma. Demonstrates full range of motion of the cervical spine. No lymphadenopathy is noted. Trachea midline. No thyromegaly noted. EARS, EYES AND NOSE: Mucous membranes pink and moist. No mucosal lesions noted. Tongue midline. LUNGS: No audible wheezing or rhonchi. Normal chest excursion. BREASTS: Deferred. There is no rash noted in a dermatomal fashion in the thoracic region or anterior chest wall. There is no allodynia or hyperpathia noted over her left chest wall. CARDIAC: Regular rate and rhythm ABDOMEN: Normal bowel sounds. Soft nontender. No organomegaly appreciated. BACK: Inspection of the thoracic spine demonstrates normal curvatures. No lesions are noted in the lumbar spine region. Provocative testing of the facet joints are negative. Mild to moderate myofascial tenderness is noted but no discrete trigger points identifiable in the paraspinous musculature. NEUROLOGICAL: Cranial nerves II through XII grossly intact. No gross sensory or motor deficits noted in the upper extremity. Sensation and motor strength in the lower extremity are symmetrical without deficit. No pathologic reflexes are noted in the lower extremities. Gait is not observed Laboratory Laboratory Review: results personally reviewed by nv Laboratory Results (Last CBC): 10/15/17 18:36 Red Blood Count 4.19 L, Mean Corpuscular Volume 95.7, Mean Corpuscular Hemoglobin 31.5, Mean Corpuscular Hemoglobin Concent 32.9, Mean Platelet Volume 9.2, Neutrophils (%) (Auto) 72.9, Lymphocytes (%) (Auto) 15.7, Monocytes (%) ( Auto) 8.1, Eosinophils (%) (Auto) 2.3, Basophils (%) (Auto) 0.4, Neutrophils # ( Auto) 6.07, Lymphocytes # (Auto) 1.31, Monocytes # (Auto) 0.67 H, Eosinophils # (Auto) 0.19, Basophils # (Auto) 0.[address]: reports reviewed CT Findings Patient: EM LMI Address1: [address] [place] [address] Rec: [id number] Address2: [facility] ID: [id number] [facility] Zip: [place] [address] Date: 1935 Sex: F Room/Bed: [facility] Ref Phy: Jeffery Lim DO SC: LORY Att Phy: Dimitry Roy D.O. Report #: [id number] Karie Phy: RV. Mariano MD Test: TSWO Admit Phy: Benny Pollard M.D. [employer]: URIEL Interpreting Phy: Christian Mata D.O. Diagnosis: COMPRESSION FRACTURE Ordering Phy: Marcial Ochoa M.D. Service Date: 10/16/17 Admit Date: 10/15/1712/09/17 MNE: [id number] CONF: DICTATED BY: Christian Mata D.O.]] CC: Dimitry Roy D.O. Balabanova-Tsarnakova, RV., MD Oncu, Jeffery Wan, Marcial Alvares M.D. Endcc: [~ rep ct add3]] THORACIC SPINE WITHOUT HISTORY: 81 years-old Female t 7 fracture follow-up study to assess T7 compression deformity COMPARISON: CT thoracic spine 10/08/2017 TECHNIQUE: Multiple axial CT images of the thoracic spine were obtained without contrast. Coronal and sagittal reformatted images were obtained from the axial data set and submitted for review. A dose lowering technique was used consistent with the principals of ALARA. FINDINGS: 30% anterior endplate compression deformity of the T7 vertebral body appears unchanged from comparison CT 10/08/2017. There is however mildly progressed central endplate depression which measures 9 mm on today's study, previously measuring 11 mm. Mild linear sclerosis is noted within the mid vertebral body. There is minimal irregularity involving the posterior endplate at this level. No significant retropulsion, high-grade central canal or foraminal narrowing. There is minimal haziness within the adjacent paravertebral tissues. No large epidural hematoma. No fracture extension to the posterior elements. No additional acute compression fracture or subluxation. Severe intervertebral disc space narrowing redemonstrated at T11-T12. Multilevel Schmorl's nodes, endplate spurring and facet arthropathy without definite high-grade central canal or foraminal stenosis identified. Multilevel Schmorl's nodes also seen. There are calcifications of the tracheobronchial tree. Multinodular goiter. Fluid-filled distal esophagus. Surgical clips are seen near the gastroesophageal junction. Multiple low attenuating lesions of the kidneys are again seen suggesting cysts. Calcifications of the aorta. 4 mm noncalcified pulmonary nodule of the right lower lobe seen on image 162 series 3. IMPRESSION: 1. 30% anterior endplate compression deformity of the T7 vertebral body is again seen which appears acute to subacute in nature without significant retropulsion, high-grade central canal or foraminal narrowing. There is mildly worsened central endplate depression from comparison CT thoracic spine 10/08/2017. 2. Moderately demineralized appearance of the bones. 3. Multilevel degenerative changes again seen as above. Past Records Previous Records: none available for review Opioid Risk Assessment Risk assessment performed, no issues identified Assessment 1. Left-sided approximately T7 intercostal neuralgia 2. Peripheral neuropathy now wheelchair bound 3. Renal insufficiency Recommendations 1. Given her prior difficulties tolerating interventional procedures and the fact that she has not yet failed conservative measures would hold on interventional pain treatment at this time. 2. Recommend initiation of Nucynta extended release 50 mg by mouth every 12 with breakthrough Percocet 1 tablet by mouth every 4 when necessary pain she may utilize IV hydromorphone as a secondary backup failing oral medications. 3. Recommend increased dosing of gabapentin to 200 mg by mouth 3 times a day, Lidoderm patches, as well as initiation of Cymbalta 20 mg by mouth every morning. These medication changes were discussed with Dr. Lim at the request of the patient. Orders were written and side effects were discussed. 4. We will add Colace and on MiraLAX to the patient's medication regimen for bowel regimen on a when necessary basis. 5. Recommend utilization of a TENS unit. This was discussed with physical therapy. 6. Thank you for this consultation
[2017-10-17] MEDS: POLYETHYLENE (MIRALAX) 17 GM PACK PO SCH (20:40)
[2017-10-17] MEDS: DOCUSATE SODIUM 100 MG CAP PO SCH (20:55)
[2017-10-17] MEDS: ATORVASTATIN 20 MG TAB PO SCH (20:58)
[2017-10-17] MEDS: PSYLLIUM 58.6% PWD PACK S\\F PO SCH (21:00)
[2017-10-17] MEDS: LISINOPRIL 10 MG TAB PO SCH (21:05)
[2017-10-18] MEDS: HYDROmorphone INJ 1 MG/ML SYR IV PRN ×4 (02:25→18:16)
[2017-10-18] MEDS: BACLOFEN 10 MG TAB PO PRN (04:51)
[2017-10-18] MEDS: HEPARIN SOD 5000 UNIT/0.5 ML CARP SQ SCH ×2 (05:24→17:49)
[2017-10-18 07:00] VITALS: BP 123/74; PULSE 52; TEMP 36.6; O2SAT 92
[2017-10-18] MEDS: ONDANSETRON INJ 2 MG/ML 2 ML VIAL IV PRN (08:18)
--- NOTE | 2017-10-18 08:57 | Clinical Documentation Query ---
QUERY 1 OF [address] RODRIGUEZ, In your clinical opinion is this patient being managed for: (X ) Chronic diastolic CHF ( ) Not Agree ( ) Other explanation of clinical findings (Please Explain) ( ) Unable to determine (Please Define) ( ) Need to Discuss The medical record reflects the following clinical findings, treatment, and risk factors. Clinical Indicators:81 yo female presenting with compression fx. Noted to have a hx of chronic CHF. Review of ECHO from 03/2017 showed EF 65-70% with grade I diastolic dysfunction. Treatment: chronic medications include metoprolol, atorvastatin, lisinopril, Risk Factors: age, kidney disease, HTN, CAD QUERY 2 OF 2 In your clinical opinion is this patient being managed for: (X ) Acute kidney failure on CKD stage III ( ) Not Agree ( ) Other explanation of clinical findings (Please Explain) ( ) Unable to determine (Please Define) ( ) Need to Discuss The medical record reflects the following clinical findings, treatment, and risk factors. Clinical Indicators: Presenting Cr 1.32 which has trended up to Cr 1.89. GFR range of 30.8-47 when not experiencing CORNELL Treatment: monitor PRP Risk Factors: age, HTN, diastolic CHF, CKD Please clarify and document your clinical opinion in the progress notes and discharge summary. Terms such as "probable", "suspected", "likely", "questionable", "possible", or "still to be ruled out" are acceptable. IF IN AGREEMENT, YOU MUST DOCUMENT ABOVE DIAGNOSTIC STATEMENT IN DAILY PROGRESS NOTES AND DISCHARGE SUMMARY. This document is not part of the patient's record. Thank You, Aga Cheek, RN [phone]
--- NOTE | 2017-10-18 08:59 | Pain Management Progress Note ---
Pain Management Progress Note Date of Service Oct 18, 2017. 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 She continues to report that pain is burning, radiating, and electric in character as well as stabbing at times creating difficulty with coughing but not with deep breathing. She notes that her pain ranges between 0 and 8 out of 10. She did have a period yesterday afternoon where she had very minimal pain. She understands that making her pain tolerable, not pain free, is the goal of pain management. She reports that she slept poorly last evening due to difficulty finding a comfortable position. Nursing reports that the patient has been able to get out of bed twice in the last 12 hours and appears improved from previous. Patient does report that she has significant anxiety surrounding her pain is now is unsure of how she will be able to care for her son and herself while at home even though she does have some in-home nursing support. Pain Location 1 - Objective Vital Signs: Last Vital Signs Documentation Date Time Temp Pulse Resp B/P (MAP) Pulse Ox O2 Delivery O2 Flow Rate FiO2 10/18/17 07:00 36.6 52 18 123/74 (90) 92 Room Air Physical Exam: GENERAL: 81-year-old female who is awake, alert and oriented. Appears well developed. She appears anxious and tearful on examination PSYCHIATRIC: Demonstrates normal and clear sensorium. Short-term and long- term memory is intact. HEAD AND NECK: No obvious trauma. Demonstrates full range of motion of the cervical spine. No lymphadenopathy is noted. Trachea midline. No thyromegaly noted. EARS, EYES AND NOSE: Mucous membranes pink and moist. No mucosal lesions noted. Tongue midline. LUNGS: No audible wheezing or rhonchi. Normal chest excursion. BREASTS: Deferred. There is no rash noted in a dermatomal fashion in the thoracic region or anterior chest wall. There is no allodynia or hyperpathia noted over her left chest wall. CARDIAC: Regular rate and rhythm ABDOMEN: Normal bowel sounds. Soft nontender. No organomegaly appreciated. BACK: Inspection of the thoracic spine demonstrates normal curvatures. No lesions are noted in the lumbar spine region. Provocative testing of the facet joints are negative. Mild to moderate myofascial tenderness is noted but no discrete trigger points identifiable in the paraspinous musculature. NEUROLOGICAL: Cranial nerves II through XII grossly intact. No gross sensory or motor deficits noted in the upper extremity. Sensation and motor strength in the lower extremity are symmetrical without deficit. No pathologic reflexes are noted in the lower extremities. Gait is not observed Laboratory Laboratory Findings 10/15/17 18:36 Red Blood Count 4.19 L, Mean Corpuscular Volume 95.7, Mean Corpuscular Hemoglobin 31.5, Mean Corpuscular Hemoglobin Concent 32.9, Mean Platelet Volume 9.2, Neutrophils (%) (Auto) 72.9, Lymphocytes (%) (Auto) 15.7, Monocytes (%) ( Auto) 8.1, Eosinophils (%) (Auto) 2.3, Basophils (%) (Auto) 0.4, Neutrophils # ( Auto) 6.07, Lymphocytes # (Auto) 1.31, Monocytes # (Auto) 0.67 H, Eosinophils # (Auto) 0.19, Basophils # (Auto) 0.03 [place] Drug Monitoring Program Search Results: patient reviewed within database, no issues identified Drug Monitoring Findings: DIRE 25 january 2017 Opioid Risk Assessment Risk assessment performed, no issues identified Assessment 1. Left-sided approximately T7 intercostal neuralgia 2. Peripheral neuropathy now wheelchair bound 3. Renal insufficiency 4. Anxiety Recommendations 1. Given her prior difficulties tolerating interventional procedures and the fact that she has not yet failed conservative measures would hold on interventional pain treatment at this time. 2. Recommend increase of Nucynta extended release to 100 mg by mouth every 12 with breakthrough Percocet 1 tablet by mouth every 4 when necessary pain she may utilize IV hydromorphone as a secondary backup failing oral medications. 3. Continue gabapentin 200 mg by mouth 3 times a day, Lidoderm patches, and Cymbalta 20 mg by mouth every morning. 4. Will add Ativan 0.5 mg by mouth every 8 when necessary anxiety 5. Recommend utilization of a TENS unit.
[2017-10-18] MEDS: FLUTICASONE PROPIONATE NA SPR 16 GM BTL NAE SCH (09:00)
[2017-10-18] MEDS: PSYLLIUM 58.6% PWD PACK S\\F PO SCH ×3 (09:00→20:50)
[2017-10-18] MEDS ORDERED: DULOXETINE HCL 20 MG CAP PO SCH (09:00)
[2017-10-18] MEDS: MAGNESIUM OXIDE 400 MG TAB PO SCH (09:55)
[2017-10-18] MEDS: CHOLECALCIFEROL 1000 INTER.UNIT TAB PO SCH (09:55)
[2017-10-18] MEDS: METOPROLOL TARTRATE 25 MG TAB PO SCH ×3 (09:55→20:48)
[2017-10-18] MEDS: LORATADINE 10 MG TAB PO SCH (09:55)
[2017-10-18] MEDS: LEUCOVORIN CALCIUM 5 MG TAB PO SCH (09:56)
[2017-10-18] MEDS: ETHACRYNIC ACID 25 MG TAB PO SCH (09:56)
[2017-10-18] MEDS: LACTOBACILLUS ACIDOPHILUS (FLORANEX) TAB PO SCH ×2 (09:56→20:38)
[2017-10-18] MEDS: DOCUSATE SODIUM 100 MG CAP PO SCH ×2 (09:56→20:38)
[2017-10-18] MEDS: DULOXETINE HCL 20 MG CAP PO SCH (09:56)
[2017-10-18] MEDS: CALCITRIOL 0.25 MCG CAP PO SCH (09:57)
[2017-10-18] MEDS: METHIMAZOLE 5 MG TAB PO SCH (09:57)
[2017-10-18] MEDS: TAPENTADOL ER 50 MG TABCR PO SCH ×3 (09:57→20:49)
[2017-10-18] MEDS: LIDODERM (LIDOCAINE) PATCH 5% TD SCH (09:58)
[2017-10-18] MEDS: GABAPENTIN 100 MG CAP PO SCH ×3 (09:59→20:38)
[2017-10-18] MEDS: LORAZEPAM 0.5 MG TAB PO PRN ×2 (11:32→23:04)
--- NOTE | 2017-10-18 13:08 | Progress Note ---
Subjective Date of Service: Oct 18, 2017. Subjective Pt evaluation today including: conversation w/ patient, physical exam, chart review, lab review, review of studies, review of inpatient medication list Pt resting comfortably in bed States abdominal pain unchanged, ranges from 6-10/10 and still worse with flexion States no changes so far with addition of medications No acute events overnight Problem List Medical Problems: (1) Abdominal pain Status: Acute (2) Back pain Status: Acute (3) Hypotension Status: Acute (4) Ischemic colitis Status: Acute (5) Rectal bleed Status: Acute (6) Rib pain Status: Acute Review of Systems Constitutional: No fever, No chills, No sweats, No weight loss, No weakness Eyes: No worsening of vision, No eye pain, No redness, No discharge Respiratory: No cough, No sputum, No wheezing, No shortness of breath, No dyspnea on exertion Cardiac: No chest pain, No orthopnea, No PND, No edema, No claudication Abdomen: + pain, No nausea, No vomiting, No diarrhea, No constipation, No GI bleeding Musculoskeletal: + muscle pain, No joint pain, No swelling, No calf pain Female : No dysuria, No urinary frequency, No hematuria, No incontinence Neurologic: No memory loss, No paralysis, No weakness, No numbness/tingling Psychiatric: No depression symptoms, No anhedonism, No anxiety, No insomnia Endo: No fatigue, No excessive thirst Skin: No rash, No itch Objective Vital Signs Date Time Temp Pulse Resp B/P (MAP) Pulse Ox O2 Delivery O2 Flow Rate FiO2 10/18/17 09:00 Room Air 10/18/17 07:00 36.6 52 18 123/74 (90) 92 Room Air 10/17/17 23:45 36.7 59 16 105/61 (76) 94 Room Air 10/17/17 23:20 Room Air 10/17/17 19:02 97 Room Air 10/17/17 18:08 36.4 61 18 102/58 (73) 97 Room Air 10/17/17 15:15 Room Air 10/17/17 15:10 36.9 66 15 100/53 (69) 97 Room Air Physical Exam General Appearance: WD/WN, + mild distress Eyes: normal inspection, PERRL, EOMI, sclerae normal Neck: supple, no adenopathy, thyroid normal, no JVD Respiratory/Chest: chest non-tender, lungs clear, normal breath sounds, no respiratory distress Cardiovascular: no edema, no gallop, no JVD, no murmur Abdomen: normal bowel sounds, soft, no organomegaly, + tenderness Extremities: normal range of motion, non-tender, normal inspection, no pedal edema Neurologic/Psychiatric: no motor/sensory deficits, alert, oriented x 3, + depressed affect Skin: normal color, warm/dry, no rash Lymphatic: no adenopathy Assessment and Plan Patient is an 81-year-old female who is transferred to the ICU for increasing left side > right side rib/abd pain with non-traumatic spinal compression fracture due to severe osteoporosis with intractable pain. Left upper quadrant pain, no change thus far Seems more MSK in nature CT abd/pelvis unremarkable Pain management consulted for possible never block, but will try medical management first, started on Lidoderm patch 5% apply daily Duloxetine 20 mg PO qAM Gabapentin 200 mg PO TID Dilaudid PRN at this time Nucynta 100 mg PO q 12 hrs Ativan 0.5 mg by mouth every 8 when necessary anxiety Recommend utilization of a TENS unit. Spinal Compression Fracture/Osteoporosis Consulted Orthopedics Currently no back pain Received 4mg Morphine x 2 * 0.5 mg Dilaudid q 3h PRN pain * Toradol 30mg IV x 1 now Monitor for AMS/Respiratory Depression * Pt DNI/DNR now Chronic diastolic HF No signs of exacerbation, cont home meds Acute on chronic kidney disease stage 3 Worsening, hold lisinopril, also likely due to decreased PO intake Neuropathy Cont neurontin Renal Disease Monitor renally dosed medications Continue 10mg Lisinopril PO Hyperthyroidism: Methimazole 250Mg PO qAM CAD/HF: Metoprolol 12.5Mg PO BID Atorvastatin 20Mg PO HS Chronic Malabsorption Continue Home Regimen Vit D, Mag, Ca DVT Prophylaxis: Heparin 5000U BID
[2017-10-18 15:13] VITALS: BP 102/51; PULSE 73; TEMP 36.8; O2SAT 95
[2017-10-18] MEDS: POLYETHYLENE (MIRALAX) 17 GM PACK PO SCH (20:37)
[2017-10-18] MEDS: ATORVASTATIN 20 MG TAB PO SCH (20:38)
[2017-10-18 20:44] VITALS: BP 97/51; PULSE 57
[2017-10-18 22:55] VITALS: BP 122/68; PULSE 57; TEMP 36.6; O2SAT 97
[2017-10-19 05:34] LABS: HEMATOCRIT 31.8 % (37-47); MEAN CELL VOLUME 91.4 fL (80-100); MEAN CORPUSCULAR HEMOGLOBIN 31.6 pg (25-34); MEAN CORPUSCULAR HGB CONC 34.6 g/dl (32-36); MEAN PLATELET VOLUME 9.3 fL (7.4-10.4); PLATELET COUNT 172 K/uL (130-400); RED BLOOD COUNT 3.48 M/uL (4.2-5.4); WHITE BLOOD COUNT 6.53 K/uL (4.8-10.8)
[2017-10-19] MEDS: HEPARIN SOD 5000 UNIT/0.5 ML CARP SQ SCH ×2 (05:41→18:14)
[2017-10-19] MEDS: HYDROmorphone INJ 1 MG/ML SYR IV PRN (07:02)
[2017-10-19 07:35] VITALS: BP 130/78; PULSE 65; TEMP 36.5; O2SAT 94
[2017-10-19 07:46] VITALS: O2SAT 94
[2017-10-19] MEDS: FLUTICASONE PROPIONATE NA SPR 16 GM BTL NAE SCH (08:40)
[2017-10-19] MEDS: DOCUSATE SODIUM 100 MG CAP PO SCH ×2 (08:41→21:53)
[2017-10-19] MEDS: LORATADINE 10 MG TAB PO SCH (08:41)
[2017-10-19] MEDS: LACTOBACILLUS ACIDOPHILUS (FLORANEX) TAB PO SCH ×2 (08:41→21:53)
[2017-10-19] MEDS: BACLOFEN 10 MG TAB PO PRN (08:42)
[2017-10-19] MEDS: METOPROLOL TARTRATE 25 MG TAB PO SCH ×2 (08:42→21:00)
[2017-10-19] MEDS: CHOLECALCIFEROL 1000 INTER.UNIT TAB PO SCH (08:42)
[2017-10-19] MEDS: LEUCOVORIN CALCIUM 5 MG TAB PO SCH (08:43)
[2017-10-19] MEDS: DULOXETINE HCL 20 MG CAP PO SCH (08:43)
[2017-10-19] MEDS: CALCITRIOL 0.25 MCG CAP PO SCH (08:43)
[2017-10-19] MEDS: ETHACRYNIC ACID 25 MG TAB PO SCH (08:43)
[2017-10-19] MEDS: MAGNESIUM OXIDE 400 MG TAB PO SCH (08:43)
[2017-10-19] MEDS: METHIMAZOLE 5 MG TAB PO SCH (08:43)
[2017-10-19] MEDS: GABAPENTIN 100 MG CAP PO SCH ×3 (08:43→21:53)
[2017-10-19] MEDS: PSYLLIUM 58.6% PWD PACK S\\F PO SCH ×2 (08:44→21:00)
[2017-10-19] MEDS: LIDODERM (LIDOCAINE) PATCH 5% TD SCH (08:44)
[2017-10-19] MEDS: TAPENTADOL ER 50 MG TABCR PO SCH ×2 (08:56→21:53)
[2017-10-19 09:40] LABS: BUN/CREATININE RATIO 26.4 (10-20); CALCIUM 8.3 mg/dl (8.5-10.1); CREATININE 1.7 mg/dl (0.60-1.20); POTASSIUM 4.2 mmol/L (3.5-5.1)
[2017-10-19] MEDS: ONDANSETRON INJ 2 MG/ML 2 ML VIAL IV PRN ×2 (09:49→15:48)
--- NOTE | 2017-10-19 10:55 | Pain Management Progress Note ---
Pain Management Progress Note Date of Service Oct 19, 2017. Subjective Continues to have left lateral and anterior chest pain. Reports excessive sedation form opiates. Pain occurs with any minimal movement of the trunk. Pain Location 1 - Left rib pain 2 - Left distal rib pain Objective Vital Signs: Last Vital Signs Documentation Date Time Temp Pulse Resp B/P (MAP) Pulse Ox O2 Delivery O2 Flow Rate FiO2 10/19/17 07:46 94 Room Air 10/19/17 07:35 36.5 65 17 130/78 (95) Physical Exam: A/O. Oriented to time, place and person. Tender mid thoracic spinous processes. Tenderness to palpation distal left ribs. No cutaneous lesions. Laboratory Laboratory Findings 10/19/17 05:08 Assessment 1. Intercostal neuralgia 2. Thoracic radiculitis 3. Thoracic vertebral fractures Recommendations 1. Recommend MRI of the thoracic spine. 2. Intercostal nerve blocks offered. Patient's questions answered. She is concerned about risks of infection and is reluctant to undergo procedures at the present time.
--- NOTE | 2017-10-19 12:54 | Progress Note ---
Subjective Date of Service: Oct 19, 2017. Subjective Pt evaluation today including: conversation w/ patient, physical exam, chart review, lab review, review of studies, review of inpatient medication list Pt in moderate distress States dilaudid does take edge off pain Pain unchanged 8/10 LUQ pain at this time Nausea this AM Problem List Medical Problems: (1) Abdominal pain Status: Acute (2) Back pain Status: Acute (3) Hypotension Status: Acute (4) Ischemic colitis Status: Acute (5) Rectal bleed Status: Acute (6) Rib pain Status: Acute Review of Systems Constitutional: No fever, No chills, No sweats, No weight loss, No weakness Respiratory: No cough, No sputum, No wheezing, No shortness of breath Cardiac: No chest pain, No orthopnea, No PND, No edema, No claudication Abdomen: + pain, + nausea, No vomiting, No diarrhea, No constipation Musculoskeletal: + muscle pain, No joint pain, No swelling, No calf pain Female : No dysuria, No urinary frequency, No hematuria, No incontinence, No abnormal vaginal bleeding Neurologic: No memory loss, No paralysis, No weakness, No numbness/tingling, No vertigo Psychiatric: No depression symptoms, No anhedonism, No anxiety, No insomnia Endo: No fatigue, No excessive thirst Skin: No rash, No itch Objective Vital Signs Date Time Temp Pulse Resp B/P (MAP) Pulse Ox O2 Delivery O2 Flow Rate FiO2 10/19/17 07:46 94 Room Air 10/19/17 07:35 36.5 65 17 130/78 (95) 94 Room Air 10/18/17 23:20 Room Air 10/18/17 22:55 36.6 57 16 122/68 (86) 97 Room Air 10/18/17 20:44 57 97/51 (66) 10/18/17 15:30 Room Air 10/18/17 15:13 36.8 73 17 102/51 (68) 95 Room Air Physical Exam General Appearance: WD/WN, + moderate distress Eyes: normal inspection, PERRL, EOMI, sclerae normal Neck: supple, no adenopathy, thyroid normal, no JVD Respiratory/Chest: chest non-tender, lungs clear, normal breath sounds, no respiratory distress Cardiovascular: regular rate, rhythm, no edema, no gallop, no JVD Abdomen: normal bowel sounds, non tender, soft, no organomegaly Extremities: normal range of motion, non-tender, normal inspection, no pedal edema Neurologic/Psychiatric: no motor/sensory deficits, alert, normal mood/affect, oriented x 3 Skin: normal color, warm/dry, no rash Lymphatic: no adenopathy Laboratory Results Last 24 Hours Test 10/19/17 05:08 10/19/17 08:49 White Blood Count 6.53 K/uL Red Blood Count 3.48 M/uL Hemoglobin 11.0 g/dL Hematocrit 31.8 % Mean Corpuscular Volume 91.4 fL Mean Corpuscular Hemoglobin 31.6 pg Mean Corpuscular Hemoglobin Concent 34.6 g/dl RDW Standard Deviation 47.0 fL RDW Coefficient of Variation 14.3 % Platelet Count 172 K/uL Mean Platelet Volume 9.3 fL Sodium Level 125 mmol/L Potassium Level 4.2 mmol/L Chloride Level 90 mmol/L Carbon Dioxide Level 26 mmol/L Anion Gap 9.0 mmol/L Blood Urea Nitrogen 45 mg/dl Creatinine 1.70 mg/dl Est Creatinine Clear Calc Drug Dose 25.3 ml/min Estimated GFR () 32.2 Estimated GFR (Non- 27.8 BUN/Creatinine Ratio 26.4 Random Glucose 91 mg/dl Calcium Level 8.3 mg/dl Assessment and Plan Patient is an 81-year-old female who is transferred to the ICU for increasing left side > right side rib/abd pain with non-traumatic spinal compression fracture due to severe osteoporosis with intractable pain. Left upper quadrant pain, no change thus far Seems more MSK in nature CT abd/pelvis unremarkable Pain management consulted Lidoderm patch 5% apply daily Duloxetine 20 mg PO qAM Gabapentin 200 mg PO TID Dilaudid PRN at this time Nucynta 100 mg PO q 12 hrs Ativan 0.5 mg by mouth every 8 when necessary anxiety No change in pain, offered nerve block but pt declining at this time MRI thoracic spine 10/19 pending Recommend utilization of a TENS unit. Spinal Compression Fracture/Osteoporosis Consulted Orthopedics Currently no back pain Received 4mg Morphine x 2 * 0.5 mg Dilaudid q 3h PRN pain * Toradol 30mg IV x 1 now Monitor for AMS/Respiratory Depression * Pt DNI/DNR now Chronic diastolic HF No signs of exacerbation, cont home meds Acute on chronic kidney disease stage 3 Worsening, hold lisinopril, also likely due to decreased PO intake Neuropathy Cont neurontin Renal Disease Monitor renally dosed medications Continue 10mg Lisinopril PO Hyperthyroidism: Methimazole 250Mg PO qAM CAD/HF: Metoprolol 12.5Mg PO BID Atorvastatin 20Mg PO HS Chronic Malabsorption Continue Home Regimen Vit D, Mag, Ca DVT Prophylaxis: Heparin 5000U BID Pt is DNR code status
[2017-10-19 15:10] VITALS: BP 134/75; PULSE 59; TEMP 36.6; O2SAT 94
[2017-10-19] MEDS: HYDROmorphone INJ 0.5 MG/0.5 ML SYR IV PRN ×2 (16:26→23:26)
[2017-10-19] MEDS: LORAZEPAM 0.5 MG TAB PO PRN (18:12)
[2017-10-19 21:40] VITALS: BP 125/70; PULSE 58
[2017-10-19] MEDS: POLYETHYLENE (MIRALAX) 17 GM PACK PO SCH (21:53)
[2017-10-19] MEDS: ATORVASTATIN 20 MG TAB PO SCH (21:53)
--- NOTE | 2017-10-19 22:32 | DIAGNOSTIC IMAGING REPORT ---
THORACIC SPINE WITHOUT HISTORY: 81 years-old Female thoracic radiculitis acute thoracic spine pain. Acute or subacute fracture of the T7 vertebral body described on most recent comparison study. COMPARISON: CT thoracic spine 10/16/[address] thoracic spine 10/08/2017 TECHNIQUE: Multiplanar multisequence MRI of the thoracic spine was obtained without contrast. FINDINGS: The large [id number] cargo surveyor localizer images demonstrate no gross abnormality. Numerous cysts of the bilateral kidneys. Dextroscoliosis of the lumbar spine. Acute appearing 30% anterior endplate compression deformity of the T7 vertebral body is again seen which is unchanged from comparison study 10/16/2017. 2 mm retropulsion of a fragment is noted along the central portion of the posterior endplate. This indents the ventral thecal sac without significant central canal or foraminal narrowing. Moderate bone marrow edema of the T7 vertebral body is noted with extension into the left pedicle, likely reactive. No left pedicle fracture identified. Linear sclerotic fracture line seen within the mid portion of the vertebral body. No acute subluxation. Signal within the spinal cord is within normal limits. The axial T2 images are moderately motion degraded. No additional acute fracture, subluxation or focal marrow edema. Posterior disc osteophyte complex with moderate facet arthrosis noted at T11-T12 causing mild central canal, and severe right foraminal narrowing. Left foramen is patent at this level is patent. 10 mm perineural root sleeve cyst is seen on the left at T10-T11. 7 mm perineural root sleeve cyst is noted on the right at T8-T9. Broad-based posterior disc osteophyte complex at T12-L1 with facet arthrosis. No significant central canal narrowing identified. There is moderate to severe left and at least moderate right foraminal narrowing. Multilevel facet arthrosis and endplate spurring throughout the thoracic spine. Multilevel facet arthrosis and spondylitic changes also noted throughout the lumbar spine with circumferential disc bulge at L1-L2. IMPRESSION: 1. Unchanged acute 30% anterior endplate compression deformity of the T7 vertebral body demonstrates 2 mm retropulsion of the posterior endplate. No associated significant central canal or foraminal narrowing. Bone marrow edema extends into the left pedicle at this level without fracture of the posterior elements identified. 2. No additional acute fracture or subluxation. 3. Posterior disc osteophyte complex formation with moderate facet arthrosis at T11-T12 causes mild central canal and severe right foraminal narrowing. 4. Multilevel spondylitic changes and facet arthropathy. 5. Motion degraded exam. The above report was generated using voice recognition software. It may contain grammatical, syntax or spelling errors. Electronically signed by: Silvano Mata M.D. 10/19/2017 10:31 PM Dictated Date/Time: 10/19/2017 10:17 PM
[2017-10-19 22:35] VITALS: BP 127/62; PULSE 59; TEMP 36.6; O2SAT 96
[2017-10-20] MEDS: HEPARIN SOD 5000 UNIT/0.5 ML CARP SQ SCH ×2 (06:04→18:22)
[2017-10-20 06:51] VITALS: BP 124/69; PULSE 70; TEMP 36.7; O2SAT 95
[2017-10-20] MEDS: HYDROmorphone INJ 0.5 MG/0.5 ML SYR IV PRN ×2 (08:11→12:30)
[2017-10-20] MEDS: LIDODERM (LIDOCAINE) PATCH 5% TD SCH (08:39)
[2017-10-20 08:59] LABS: BUN/CREATININE RATIO 24.1 (10-20); CALCIUM 8.4 mg/dl (8.5-10.1); CREATININE 1.39 mg/dl (0.60-1.20); POTASSIUM 4.2 mmol/L (3.5-5.1)
[2017-10-20] MEDS: DOCUSATE SODIUM 100 MG CAP PO SCH ×2 (09:00→21:08)
[2017-10-20] MEDS: CALCITRIOL 0.25 MCG CAP PO SCH (09:00)
[2017-10-20] MEDS: ETHACRYNIC ACID 25 MG TAB PO SCH (09:00)
[2017-10-20] MEDS: PSYLLIUM 58.6% PWD PACK S\\F PO SCH ×2 (09:00→21:00)
[2017-10-20] MEDS: METOPROLOL TARTRATE 25 MG TAB PO SCH ×2 (09:00→21:00)
[2017-10-20] MEDS: LORATADINE 10 MG TAB PO SCH (09:00)
[2017-10-20] MEDS: FLUTICASONE PROPIONATE NA SPR 16 GM BTL NAE SCH (09:00)
[2017-10-20] MEDS: METHIMAZOLE 5 MG TAB PO SCH (09:00)
[2017-10-20] MEDS: MAGNESIUM OXIDE 400 MG TAB PO SCH (09:00)
[2017-10-20] MEDS: CHOLECALCIFEROL 1000 INTER.UNIT TAB PO SCH (09:00)
[2017-10-20] MEDS: LEUCOVORIN CALCIUM 5 MG TAB PO SCH (09:00)
[2017-10-20] MEDS: LACTOBACILLUS ACIDOPHILUS (FLORANEX) TAB PO SCH ×2 (09:00→21:08)
[2017-10-20] MEDS: DULOXETINE HCL 20 MG CAP PO SCH (09:00)
[2017-10-20] MEDS: LORAZEPAM 0.5 MG TAB PO PRN (09:45)
--- NOTE | 2017-10-20 11:52 | Pain Management Progress Note ---
Pain Management Progress Note Date of Service Oct 20, 2017. Cristhian August continues to complain experiencing a typical pain in the midthoracic spine and radiation into the anterior lateral chest on the left side in approximately T7 and T8 levels. She reports the pain is keeping him from being able to sleep, yet she experiences excessive sedation and cognitive dysfunction with the opioids. She feels that she continues to have pain despite her current opiate regimen. She rates her pain 8/10 when severe and 2/10 when minimal. Any movement of the trunk causes her to experience the radicular component of her pain. Denies any new neurological symptoms. She did undergo an MRI of thoracic spine yesterday. Objective Vital Signs: Last Vital Signs Documentation Date Time Temp Pulse Resp B/P (MAP) Pulse Ox O2 Delivery O2 Flow Rate FiO2 10/20/17 06:51 36.7 70 16 124/69 (87) 95 Room Air Physical Exam: She is noted to be sleeping upon entering the room but awakens easily. She is laying in left lateral decubitus position and has obvious pain when she attempts to lay on her back. She is oriented to time, place and person. Palpation of the mid thoracic spine produces pain focally. Palpation over the mid axillary line to the anterior portion of the chest at approximately [id number]. Sensation over the left thoracic trunk area is intact. Laboratory Laboratory Findings 10/19/17 05:08 Imaging MRI: non enhanced, reports reviewed MRI Findings IMPRESSION: 1. Unchanged acute 30% anterior endplate compression deformity of the T7 vertebral body demonstrates 2 mm retropulsion of the posterior endplate. No associated significant central canal or foraminal narrowing. Bone marrow edema extends into the left pedicle at this level without fracture of the posterior elements identified. 2. No additional acute fracture or subluxation. 3. Posterior disc osteophyte complex formation with moderate facet arthrosis at T11-T12 causes mild central canal and severe right foraminal narrowing. 4. Multilevel spondylitic changes and facet arthropathy. 5. Motion degraded exam. The above report was generated using voice recognition software. It may contain grammatical, syntax or spelling errors. Electronically signed by: Silvano Mata M.D. 10/19/2017 10:31 PM Dictated Date/Time: 10/19/2017 10:17 PM Assessment 1. T7 vertebral fracture with edema of the left pedicle. 2. Thoracic radiculitis. 3. Intercostal neuralgia. 4. Opiate intolerance. Recommendations 1. Defer interventional procedures. 2. Recommend discontinuation long-acting Tapentadol as it might be contributing to the excessive sedation and initiate short acting Tapentadol. 3. Discontinue oxycodone. 4. Discontinue baclofen as it might be contributing to her sedation.
[2017-10-20] MEDS: GABAPENTIN 300 MG CAP PO SCH ×2 (14:08→21:08)
[2017-10-20] MEDS: TAPENTADOL HCL 50 MG TAB PO PRN (14:18)
[2017-10-20 15:00] VITALS: BP 108/68; PULSE 64; TEMP 36.9; O2SAT 95
[2017-10-20] MEDS: ONDANSETRON INJ 2 MG/ML 2 ML VIAL IV PRN (15:32)
--- NOTE | 2017-10-20 15:32 | Progress Note ---
Subjective Date of Service: Oct 20, 2017. Subjective Pt evaluation today including: conversation w/ patient, physical exam, chart review, lab review, review of studies, review of inpatient medication list Pt resting in bed States feeling worse More sedated than previously Worsening rib pain 08/16 and thoracic spine pain 06/16 Problem List Medical Problems: (1) Abdominal pain Status: Acute (2) Back pain Status: Acute (3) Hypotension Status: Acute (4) Ischemic colitis Status: Acute (5) Rectal bleed Status: Acute (6) Rib pain Status: Acute Review of Systems Constitutional: No fever, No chills, No sweats, No weight loss, No weakness ENT: No hearing loss, No unusual epistaxis, No nasal symptoms, No sore throat Respiratory: No cough, No sputum, No wheezing, No shortness of breath, No dyspnea on exertion Cardiac: No chest pain, No orthopnea, No PND, No edema Abdomen: + pain, No nausea, No vomiting, No diarrhea, No constipation Musculoskeletal: + joint pain, No muscle pain, No swelling, No calf pain Female : No dysuria, No urinary frequency, No hematuria, No incontinence Neurologic: No memory loss, No paralysis, No weakness, No numbness/tingling Psychiatric: No depression symptoms, No anhedonism, No anxiety, No insomnia Endo: No fatigue, No excessive thirst Skin: No rash, No itch Objective Vital Signs Date Time Temp Pulse Resp B/P (MAP) Pulse Ox O2 Delivery O2 Flow Rate FiO2 10/20/17 08:30 Room Air 10/20/17 06:51 36.7 70 16 124/69 (87) 95 Room Air 10/19/17 23:15 Room Air 10/19/17 22:35 36.6 59 18 127/62 (83) 96 Room Air 10/19/17 21:40 58 125/70 (88) 10/19/17 15:40 Room Air Physical Exam General Appearance: WD/WN, + mild distress Eyes: normal inspection, PERRL, EOMI, sclerae normal Neck: supple, no adenopathy, thyroid normal, no JVD Respiratory/Chest: chest non-tender, lungs clear, normal breath sounds, no respiratory distress Cardiovascular: regular rate, rhythm, no edema, no gallop, no JVD Abdomen: normal bowel sounds, non tender, soft, no organomegaly Extremities: normal range of motion, non-tender, normal inspection, no pedal edema Neurologic/Psychiatric: no motor/sensory deficits, alert, normal mood/affect, oriented x 3 Laboratory Results Last 24 Hours Test 10/20/17 07:57 Sodium Level 124 mmol/L Potassium Level 4.2 mmol/L Chloride Level 90 mmol/L Carbon Dioxide Level 27 mmol/L Anion Gap 7.0 mmol/L Blood Urea Nitrogen 34 mg/dl Creatinine 1.39 mg/dl Est Creatinine Clear Calc Drug Dose 31.0 ml/min Estimated GFR () 41.1 Estimated GFR (Non- 35.5 BUN/Creatinine Ratio 24.1 Random Glucose 87 mg/dl Calcium Level 8.4 mg/dl Assessment and Plan Patient is an 81-year-old female who is transferred to the ICU for increasing left side > right side rib/abd pain with non-traumatic spinal compression fracture due to severe osteoporosis with intractable pain. Left upper quadrant pain, no change thus far Seems more MSK in nature CT abd/pelvis unremarkable Pain management consulted Lidoderm patch 5% apply daily Duloxetine 20 mg PO qAM Gabapentin 200 mg PO TID Dilaudid PRN at this time Nucynta 100 mg PO q 12 hrs Ativan 0.5 mg by mouth every 8 when necessary anxiety No change in pain, offered nerve block but deferred at this time MRI thoracic spine 10/19 confirmed thoracic spine compression fx Recommend utilization of a TENS unit. Spinal Compression Fracture/Osteoporosis Consulted Orthopedics Currently no back pain Received 4mg Morphine x 2 * 1 mg Dilaudid q 3h PRN pain * Toradol 30mg IV x 1 now Monitor for AMS/Respiratory Depression * Pt DNI/DNR now Chronic diastolic HF No signs of exacerbation, cont home meds Acute on chronic kidney disease stage 3 Worsening, hold lisinopril, also likely due to decreased PO intake Neuropathy Cont neurontin Renal Disease Monitor renally dosed medications Continue 10mg Lisinopril PO Hyperthyroidism: Methimazole 250Mg PO qAM CAD/HF: Metoprolol 12.5Mg PO BID Atorvastatin 20Mg PO HS Chronic Malabsorption Continue Home Regimen Vit D, Mag, Ca DVT Prophylaxis: Heparin 5000U BID Pt is DNR code status
[2017-10-20] MEDS: HYDROmorphone INJ 1 MG/ML SYR IV PRN ×2 (15:33→23:31)
[2017-10-20] MEDS: ACETAMINOPHEN 325 MG TAB PO PRN (15:55)
[2017-10-20 19:32] VITALS: O2SAT 96
[2017-10-20 21:05] VITALS: BP 109/65; PULSE 57
[2017-10-20] MEDS: POLYETHYLENE (MIRALAX) 17 GM PACK PO SCH (21:08)
[2017-10-20] MEDS: ATORVASTATIN 20 MG TAB PO SCH (21:08)
[2017-10-20 23:10] VITALS: BP 150/80; PULSE 56; TEMP 36.8; O2SAT 97
[2017-10-21] MEDS: HEPARIN SOD 5000 UNIT/0.5 ML CARP SQ SCH ×2 (05:58→17:29)
[2017-10-21] MEDS: HYDROmorphone INJ 1 MG/ML SYR IV PRN ×2 (05:59→09:19)
[2017-10-21 06:37] VITALS: BP 150/70; PULSE 60
[2017-10-21 07:00] VITALS: BP 127/72; PULSE 57; TEMP 37; O2SAT 95
[2017-10-21 07:20] LABS: BUN/CREATININE RATIO 23.8 (10-20); CALCIUM 8.4 mg/dl (8.5-10.1); CREATININE 1.25 mg/dl (0.60-1.20); POTASSIUM 4.3 mmol/L (3.5-5.1)
[2017-10-21] MEDS: METOPROLOL TARTRATE 25 MG TAB PO SCH ×2 (09:00→20:44)
[2017-10-21] MEDS: PSYLLIUM 58.6% PWD PACK S\\F PO SCH ×2 (09:00→20:40)
[2017-10-21] MEDS: ONDANSETRON INJ 2 MG/ML 2 ML VIAL IV PRN (09:18)
[2017-10-21] MEDS: POLYETHYLENE (MIRALAX) 17 GM PACK PO PRN (10:09)
[2017-10-21] MEDS: FLUTICASONE PROPIONATE NA SPR 16 GM BTL NAE SCH (10:12)
[2017-10-21] MEDS: DOCUSATE SODIUM 100 MG CAP PO SCH ×2 (10:13→20:37)
[2017-10-21] MEDS: DULOXETINE HCL 20 MG CAP PO SCH (10:13)
[2017-10-21] MEDS: ETHACRYNIC ACID 25 MG TAB PO SCH (10:14)
[2017-10-21] MEDS: LACTOBACILLUS ACIDOPHILUS (FLORANEX) TAB PO SCH ×2 (10:15→20:39)
[2017-10-21] MEDS: LEUCOVORIN CALCIUM 5 MG TAB PO SCH (10:16)
[2017-10-21] MEDS: MAGNESIUM OXIDE 400 MG TAB PO SCH (10:17)
[2017-10-21] MEDS: METHIMAZOLE 5 MG TAB PO SCH (10:18)
[2017-10-21] MEDS: GABAPENTIN 300 MG CAP PO SCH (10:18)
[2017-10-21] MEDS: CALCITRIOL 0.25 MCG CAP PO SCH (10:19)
[2017-10-21] MEDS: CHOLECALCIFEROL 1000 INTER.UNIT TAB PO SCH (10:19)
[2017-10-21] MEDS: LORATADINE 10 MG TAB PO SCH (10:20)
[2017-10-21] MEDS: LIDODERM (LIDOCAINE) PATCH 5% TD SCH (10:20)
[2017-10-21] MEDS: TAPENTADOL HCL 50 MG TAB PO PRN (10:29)
[2017-10-21] MEDS: HYDROmorphone HCL 2 MG TAB PO PRN ×2 (13:19→19:20)
[2017-10-21] MEDS: GABAPENTIN 100 MG CAP PO SCH ×2 (13:22→20:40)
--- NOTE | 2017-10-21 13:59 | Progress Note ---
Subjective Date of Service: Oct 21, 2017. Subjective Pt evaluation today including: conversation w/ patient, physical exam, chart review, lab review, review of studies, review of inpatient medication list Reports pain unchanged States "would want to have any surgery done to fix this" State dilaudid is the only thing she takes to give her relief Problem List Medical Problems: (1) Abdominal pain Status: Acute (2) Back pain Status: Acute (3) Hypotension Status: Acute (4) Ischemic colitis Status: Acute (5) Rectal bleed Status: Acute (6) Rib pain Status: Acute Review of Systems Constitutional: No fever, No chills, No weight loss, No weakness ENT: No hearing loss, No unusual epistaxis, No nasal symptoms, No sore throat Respiratory: No cough, No wheezing, No shortness of breath Cardiac: No chest pain, No orthopnea, No PND, No edema Abdomen: No pain, No nausea, No vomiting, No diarrhea, No constipation Musculoskeletal: + joint pain, + muscle pain, No swelling, No calf pain Female : No dysuria, No urinary frequency, No hematuria, No incontinence Neurologic: No memory loss, No paralysis, No weakness, No numbness/tingling Psychiatric: + depression symptoms, + anxiety, No anhedonism, No insomnia Heme: No abnormal bleeding/bruising, No clotting problems Skin: No rash, No itch Objective Vital Signs Date Time Temp Pulse Resp B/P (MAP) Pulse Ox O2 Delivery O2 Flow Rate FiO2 10/21/17 08:00 Room Air 10/21/17 07:00 37.0 57 16 127/72 (90) 95 Room Air 10/21/17 06:37 60 150/70 (96) 10/20/17 23:25 Room Air 10/20/17 23:10 36.8 56 18 150/80 (103) 97 Room Air 10/20/17 21:05 57 109/65 (80) 10/20/17 19:32 96 Room Air 10/20/17 15:20 Room Air 10/20/17 15:00 36.9 64 16 108/68 (81) 95 Room Air Physical Exam General Appearance: WD/WN, + moderate distress Eyes: normal inspection, PERRL, EOMI, sclerae normal Neck: supple, no adenopathy, thyroid normal, no JVD Respiratory/Chest: chest non-tender, lungs clear, normal breath sounds, no respiratory distress Cardiovascular: regular rate, rhythm, no edema, no gallop, no JVD Abdomen: normal bowel sounds, non tender, soft, no organomegaly Extremities: non-tender, normal inspection, no pedal edema Neurologic/Psychiatric: no motor/sensory deficits, alert, oriented x 3, + depressed affect Laboratory Results Last 24 Hours Test 10/21/17 06:25 Sodium Level 126 mmol/L Potassium Level 4.3 mmol/L Chloride Level 93 mmol/L Carbon Dioxide Level 27 mmol/L Anion Gap 6.0 mmol/L Blood Urea Nitrogen 30 mg/dl Creatinine 1.25 mg/dl Est Creatinine Clear Calc Drug Dose 34.4 ml/min Estimated GFR () 46.7 Estimated GFR (Non- 40.3 BUN/Creatinine Ratio 23.8 Random Glucose 86 mg/dl Calcium Level 8.4 mg/dl Assessment and Plan Patient is an 81-year-old female who is transferred to the ICU for increasing left side > right side rib/abd pain with non-traumatic spinal compression fracture due to severe osteoporosis with intractable pain. Left upper quadrant pain, no change thus far Seems more MSK in nature CT abd/pelvis unremarkable Pain management consulted Lidoderm patch 5% apply daily Duloxetine 20 mg PO qAM Gabapentin 200 mg PO TID Dilaudid PRN at this time, switched to PO Dced Nucynta 100 mg PO q 12 hrs Ativan 0.5 mg by mouth every 8 when necessary anxiety No change in pain, offered nerve block, will leave to pain management to discuss further MRI thoracic spine 10/19 confirmed thoracic spine compression fx Recommend utilization of a TENS unit. Spinal Compression Fracture/Osteoporosis Consulted Orthopedics Currently no back pain Received 4mg Morphine x 2 * 1 mg Dilaudid q 3h PO PRN pain * Toradol 30mg IV x 1 now Monitor for AMS/Respiratory Depression * Pt DNI/DNR now Chronic diastolic HF No signs of exacerbation, cont home meds Acute on chronic kidney disease stage 3 Worsening, hold lisinopril, also likely due to decreased PO intake Neuropathy Cont neurontin Renal Disease Monitor renally dosed medications Continue 10mg Lisinopril PO Hyperthyroidism: Methimazole 250Mg PO qAM CAD/HF: Metoprolol 12.5Mg PO BID Atorvastatin 20Mg PO HS Chronic Malabsorption Continue Home Regimen Vit D, Mag, Ca DVT Prophylaxis: Heparin 5000U BID Pt is DNR code status
[2017-10-21 15:10] VITALS: BP 124/62; PULSE 57; TEMP 36.5; O2SAT 95
[2017-10-21 16:00] VITALS: O2SAT 95
[2017-10-21] MEDS: POLYETHYLENE (MIRALAX) 17 GM PACK PO SCH (20:00)
[2017-10-21] MEDS: ATORVASTATIN 20 MG TAB PO SCH (20:39)
[2017-10-21 20:40] VITALS: BP 134/73; PULSE 57
[2017-10-21] MEDS ORDERED: NURSING VERBAL MED ORDER ONE (21:45)
[2017-10-21] MEDS ORDERED: HYDROmorphone HCL 2 MG TAB PO STA (21:57)
[2017-10-21] MEDS: LORAZEPAM 0.5 MG TAB PO PRN (21:57)
[2017-10-21 23:15] VITALS: BP 120/71; PULSE 62; TEMP 37; O2SAT 95
[2017-10-22] MEDS: HYDROmorphone HCL 2 MG TAB PO PRN ×7 (01:20→21:19)
[2017-10-22] MEDS: HEPARIN SOD 5000 UNIT/0.5 ML CARP SQ SCH ×2 (06:10→17:48)
[2017-10-22] MEDS: LORAZEPAM 0.5 MG TAB PO PRN (06:14)
[2017-10-22] MEDS: ACETAMINOPHEN 325 MG TAB PO PRN ×2 (06:14→17:47)
[2017-10-22 07:19] VITALS: BP 106/64; PULSE 60; TEMP 36.6; O2SAT 91
[2017-10-22] MEDS: FLUTICASONE PROPIONATE NA SPR 16 GM BTL NAE SCH (08:24)
[2017-10-22] MEDS: GABAPENTIN 100 MG CAP PO SCH ×3 (08:26→21:18)
[2017-10-22] MEDS: ONDANSETRON INJ 2 MG/ML 2 ML VIAL IV PRN (08:35)
[2017-10-22] MEDS: DULOXETINE HCL 20 MG CAP PO SCH (08:37)
[2017-10-22] MEDS: DOCUSATE SODIUM 100 MG CAP PO SCH ×3 (08:37→21:18)
[2017-10-22] MEDS: PSYLLIUM 58.6% PWD PACK S\\F PO SCH ×3 (08:38→21:00)
[2017-10-22] MEDS: METOPROLOL TARTRATE 25 MG TAB PO SCH ×2 (08:39→09:34)
[2017-10-22] MEDS: CALCITRIOL 0.25 MCG CAP PO SCH (08:39)
[2017-10-22] MEDS: LEUCOVORIN CALCIUM 5 MG TAB PO SCH (08:40)
[2017-10-22] MEDS: MAGNESIUM OXIDE 400 MG TAB PO SCH (08:40)
[2017-10-22] MEDS: ETHACRYNIC ACID 25 MG TAB PO SCH (08:40)
[2017-10-22] MEDS: METHIMAZOLE 5 MG TAB PO SCH (08:41)
[2017-10-22] MEDS: CHOLECALCIFEROL 1000 INTER.UNIT TAB PO SCH (08:42)
[2017-10-22] MEDS: LORATADINE 10 MG TAB PO SCH (08:42)
[2017-10-22] MEDS: LACTOBACILLUS ACIDOPHILUS (FLORANEX) TAB PO SCH ×2 (08:42→21:18)
[2017-10-22] MEDS: LIDODERM (LIDOCAINE) PATCH 5% TD SCH (08:45)
[2017-10-22 08:47] LABS: MEAN CELL VOLUME 91.9 fL (80-100); MEAN CORPUSCULAR HEMOGLOBIN 31.4 pg (25-34); MEAN CORPUSCULAR HGB CONC 34.1 g/dl (32-36); MEAN PLATELET VOLUME 9.6 fL (7.4-10.4); PLATELET COUNT 215 K/uL (130-400)
[2017-10-22 09:23] LABS: BUN/CREATININE RATIO 22.1 (10-20); CALCIUM 8.9 mg/dl (8.5-10.1); CREATININE 1.31 mg/dl (0.60-1.20)
[2017-10-22 14:52] VITALS: BP 124/75; PULSE 57; TEMP 36.8; O2SAT 96
--- NOTE | 2017-10-22 15:21 | Progress Note ---
Subjective Date of Service: Oct 22, 2017. Subjective Pt evaluation today including: conversation w/ patient, physical exam, chart review, lab review, review of studies, conversation w/ consultant internship, review of inpatient medication list Pt in moderate distress Reports no pain relief States LUQ abd pain 10/10 and upper back pain 10/10, unchanged States difficulty with sitting up and feels defeated, agreeable to nerve block at this time Problem List Medical Problems: (1) Abdominal pain Status: Acute (2) Back pain Status: Acute (3) Hypotension Status: Acute (4) Ischemic colitis Status: Acute (5) Rectal bleed Status: Acute (6) Rib pain Status: Acute Review of Systems Constitutional: No fever, No chills, No sweats, No weight loss, No weakness Eyes: No worsening of vision, No eye pain, No redness, No discharge ENT: No hearing loss, No unusual epistaxis, No nasal symptoms, No sore throat Respiratory: No cough, No sputum, No wheezing, No shortness of breath Cardiac: No chest pain, No orthopnea, No PND, No edema Abdomen: + pain, No nausea, No vomiting, No diarrhea, No constipation Musculoskeletal: + muscle pain, No joint pain, No swelling, No calf pain Female : No dysuria, No urinary frequency, No hematuria, No incontinence Neurologic: No memory loss, No paralysis, No weakness, No numbness/tingling Psychiatric: + depression symptoms, + anxiety, No anhedonism, No insomnia Objective Vital Signs Date Time Temp Pulse Resp B/P (MAP) Pulse Ox O2 Delivery O2 Flow Rate FiO2 10/22/17 14:52 36.8 57 16 124/75 (91) 96 10/22/17 10:50 Room Air 10/22/17 07:19 36.6 60 15 106/64 (78) 91 Room Air 10/22/17 00:05 Room Air 10/21/17 23:15 37.0 62 16 120/71 (87) 95 Room Air 10/21/17 20:40 57 134/73 (93) 10/21/17 16:00 95 Room Air Physical Exam General Appearance: WD/WN, + moderate distress Eyes: normal inspection, PERRL, EOMI, sclerae normal Neck: supple, no adenopathy, thyroid normal, no JVD Respiratory/Chest: chest non-tender, lungs clear, normal breath sounds, no respiratory distress Cardiovascular: regular rate, rhythm, no edema, no gallop, no JVD Abdomen: normal bowel sounds, soft, no organomegaly, + tenderness Extremities: normal range of motion, non-tender, normal inspection, no pedal edema Neurologic/Psychiatric: no motor/sensory deficits, alert, normal mood/affect, oriented x 3 Skin: normal color, warm/dry, no rash Lymphatic: no adenopathy Laboratory Results Last 24 Hours Test 10/22/17 07:41 White Blood Count 8.80 K/uL Red Blood Count 3.70 M/uL Hemoglobin 11.6 g/dL Hematocrit 34.0 % Mean Corpuscular Volume 91.9 fL Mean Corpuscular Hemoglobin 31.4 pg Mean Corpuscular Hemoglobin Concent 34.1 g/dl RDW Standard Deviation 46.9 fL RDW Coefficient of Variation 14.3 % Platelet Count 215 K/uL Mean Platelet Volume 9.6 fL Sodium Level 128 mmol/L Potassium Level 4.0 mmol/L Chloride Level 93 mmol/L Carbon Dioxide Level 27 mmol/L Anion Gap 8.0 mmol/L Blood Urea Nitrogen 29 mg/dl Creatinine 1.31 mg/dl Est Creatinine Clear Calc Drug Dose 32.9 ml/min Estimated GFR () 44.1 Estimated GFR (Non- 38.1 BUN/Creatinine Ratio 22.1 Random Glucose 89 mg/dl Calcium Level 8.9 mg/dl Assessment and Plan Patient is an 81-year-old female who is transferred to the ICU for increasing left side > right side rib/abd pain with non-traumatic spinal compression fracture due to severe osteoporosis with intractable pain. Left upper quadrant pain, no change thus far Seems more MSK in nature CT abd/pelvis unremarkable, hx of ischemic colitis, cdiff Pain management consulted, medical management at this time, can offer nerve block if pain not resolving Lidoderm patch 5% apply daily Duloxetine 20 mg PO qAM Gabapentin 200 mg PO TID Dilaudid 2mg PO q 3 hr Dced Nucynta 100 mg PO q 12 hrs due to sedation Ativan 0.5 mg by mouth every 8 when necessary anxiety Recommend utilization of a TENS unit. Back pain/Spinal Compression Fracture/Osteoporosis Consulted Orthopedics MRI thoracic spine 10/19 confirmed thoracic spine compression fx Reports 10/10 back pain now, pt poor candidate for surgical intervention, pt refuses back brace at this time Cont 2mg Dilaudid q 3h PO PRN pain Chronic diastolic HF No signs of exacerbation, cont home meds Acute on chronic kidney disease stage 3 Improving, hold lisinopril, also likely due to decreased PO intake Neuropathy Cont neurontin Hyperthyroidism: Methimazole 250Mg PO qAM CAD/HF: Metoprolol 12.5Mg PO BID Atorvastatin 20Mg PO HS Chronic Malabsorption Continue Home Regimen Vit D, Mag, Ca DVT Prophylaxis: Heparin 5000U BID Pt is DNR code status
[2017-10-22] MEDS: POLYETHYLENE (MIRALAX) 17 GM PACK PO SCH ×2 (19:43→20:00)
[2017-10-22] MEDS: ALUMINUM/MAGNESIUM/SIMETH (MAALOX MAX) 30 ML UDC PO PRN ×2 (19:44→23:31)
[2017-10-22] MEDS: ATORVASTATIN 20 MG TAB PO SCH (21:18)
[2017-10-22 22:49] VITALS: BP 110/65; PULSE 67; TEMP 37.1; O2SAT 92
[2017-10-23] MEDS: HYDROmorphone HCL 2 MG TAB PO PRN ×7 (00:40→21:53)
[2017-10-23] MEDS: HEPARIN SOD 5000 UNIT/0.5 ML CARP SQ SCH (06:08)
[2017-10-23] MEDS: LORAZEPAM 0.5 MG TAB PO PRN ×3 (06:11→21:53)
[2017-10-23 08:15] VITALS: BP 126/71; PULSE 61; TEMP 36.7; O2SAT 94
[2017-10-23 08:22] LABS: BUN/CREATININE RATIO 23.6 (10-20); CALCIUM 8.6 mg/dl (8.5-10.1); CREATININE 1.43 mg/dl (0.60-1.20); POTASSIUM 3.8 mmol/L (3.5-5.1)
[2017-10-23] MEDS: ONDANSETRON INJ 2 MG/ML 2 ML VIAL IV PRN (08:32)
[2017-10-23] MEDS: FLUTICASONE PROPIONATE NA SPR 16 GM BTL NAE SCH (08:34)
[2017-10-23] MEDS: LIDODERM (LIDOCAINE) PATCH 5% TD SCH (08:35)
[2017-10-23] MEDS: LEUCOVORIN CALCIUM 5 MG TAB PO SCH (08:36)
[2017-10-23] MEDS: LACTOBACILLUS ACIDOPHILUS (FLORANEX) TAB PO SCH ×2 (08:37→21:55)
[2017-10-23] MEDS: ETHACRYNIC ACID 25 MG TAB PO SCH (08:37)
[2017-10-23] MEDS: LORATADINE 10 MG TAB PO SCH (08:38)
[2017-10-23] MEDS: CALCITRIOL 0.25 MCG CAP PO SCH (08:38)
[2017-10-23] MEDS: GABAPENTIN 100 MG CAP PO SCH ×3 (08:38→21:59)
[2017-10-23] MEDS: DOCUSATE SODIUM 100 MG CAP PO SCH ×2 (08:38→21:55)
[2017-10-23] MEDS: DULOXETINE HCL 20 MG CAP PO SCH (08:39)
[2017-10-23] MEDS: CHOLECALCIFEROL 1000 INTER.UNIT TAB PO SCH (08:39)
[2017-10-23] MEDS: METOPROLOL TARTRATE 25 MG TAB PO SCH ×2 (08:39→22:00)
[2017-10-23] MEDS: MAGNESIUM OXIDE 400 MG TAB PO SCH (08:39)
[2017-10-23] MEDS: PSYLLIUM 58.6% PWD PACK S\\F PO SCH ×2 (08:40→21:51)
[2017-10-23] MEDS: METHIMAZOLE 5 MG TAB PO SCH (08:40)
[2017-10-23] MEDS: POLYETHYLENE (MIRALAX) 17 GM PACK PO SCH (08:51)
[2017-10-23] MEDS: ACETAMINOPHEN 325 MG TAB PO PRN ×2 (08:52→22:03)
[2017-10-23 15:50] VITALS: BP 110/58; PULSE 55; TEMP 36.8; O2SAT 97
--- NOTE | 2017-10-23 17:29 | Hospitalist Progress Note ---
Hospitalist Progress Note Date of Service Oct 23, 2017. Subjective Pt evaluation today including: conversation w/ patient Patient still having a significant amount of pain, states that it is "almost unbearable." The by mouth Dilaudid does help her sleep a little bit she is the only time she finds some relief. The pain is in the mid back and radiates around through the left ribs. She is eating and drinking. Constitutional: No fever Respiratory: No shortness of breath Cardiovascular: No chest pain All Other Systems: Reviewed and Negative Objective Vital Signs Date Time Temp Pulse Resp B/P (MAP) Pulse Ox O2 Delivery O2 Flow Rate FiO2 10/23/17 15:50 36.8 55 20 110/58 (75) 97 Room Air 10/23/17 15:15 Room Air 10/23/17 10:30 Room Air 10/23/17 08:15 36.7 61 18 126/71 (89) 94 Room Air 10/22/17 23:20 Room Air 10/22/17 22:49 37.1 67 16 110/65 (80) 92 Room Air Physical Exam General Appearance: no apparent distress (lying in bed) Eyes: normal inspection, sclerae normal ENT: hearing grossly normal Neck: trachea midline Respiratory/Chest: lungs clear, normal breath sounds, no respiratory distress, no accessory muscle use Cardiovascular: regular rate, rhythm, no edema, + systolic murmur (2 out of 6 heard best at the apex) Abdomen: normal bowel sounds, non tender, soft, + pertinent finding (no tenderness to palpation over thoracic spine or left rib cage) Extremities: non-tender, normal inspection, no pedal edema, no calf tenderness Neurologic/Psychiatric: alert, normal mood/affect, oriented x 3 Skin: normal color, warm/dry, no rash (no rash over thorax at site of pain) Laboratory Results Last 24 Hours Test 10/23/17 06:59 Sodium Level 129 mmol/L Potassium Level 3.8 mmol/L Chloride Level 92 mmol/L Carbon Dioxide Level 30 mmol/L Anion Gap 7.0 mmol/L Blood Urea Nitrogen 34 mg/dl Creatinine 1.43 mg/dl Est Creatinine Clear Calc Drug Dose 30.1 ml/min Estimated GFR () 39.7 Estimated GFR (Non- 34.3 BUN/Creatinine Ratio 23.6 Random Glucose 90 mg/dl Calcium Level 8.6 mg/dl Assessment and Plan This patient is an 81-year-old female with a history of SLE, scleroderma, polymyositis on chronic prednisone, severe osteoporosis with multiple fractures , CKD stage III, gastroparesis, history of 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 T7 compression fracture/intercostal neuralgia/thoracic radiculitis-was overly sedated when on Nucynta, became hyponatremic with Cymbalta. Her home dose of gabapentin was increased upon admission, and she may have some relief with the Lidoderm patch and by mouth Dilaudid. CT abd/pelvis unremarkable, hx of ischemic colitis, cdiff, but there is no suspicion of those at this time. MRI thoracic spine confirms T7 acute to subacute compression fracture as well as neural foraminal stenosis T11-12 Orthopedics and Orthopedic spine consulted Pain management consulted, medical management at this time, can offer nerve block if pain not resolving-patient is definitely interested in a nerve block as soon as possible -Continue Lidoderm patch, by mouth Dilaudid when necessary for pain -Discontinue Duloxetine due to worsening hyponatremia -Continue Gabapentin 200 mg PO TID Continue Ativan 0.5 mg when necessary for anxiety and/or muscle spasm Recommend utilization of a TENS unit as per pain management Rhakprlyhluu-qdyc-ilxkaqut and severe, with history of multiple pathological fractures. Has been on bisphosphonates, calcitonin, Forteo in the past. -Currently on Prolia -Continue calcitriol and cholecalciferol Chronic diastolic CHF/HL/HTN/CAD-No signs of exacerbation of CHF, BPs acceptable -cont home meds of ethacrynic acid, atorvastatin, metoprolol -Holding lisinopril right now for renal insufficiency Acute on chronic kidney disease stage 3/hyponatremia-creatinine around her baseline but a little worse than yesterday at 1.43. Sodium dropped to 130 the day after admission. It then further declined after starting Cymbalta down to 124. It is now up to 129, but I have concerns about Cymbalta causing SIADH. -continue to hold lisinopril -Continue Cymbalta -Follow PRP -Avoid nephrotoxins -Renally dose medications Neuropathy-stable, present bilateral lower extremities and right arm Cont neurontin Hyperthyroidism: TSH recently normal -Continue Methimazole 250Mg PO qAM Chronic Malabsorption status post gastrectomy -Continue Vit D, Mag, calcium, B12 supplements Right adnexal lesion-measuring 7.4 x [address] scan. Patient reports she is followed routinely by gynecology every 3 months for this Pancreatic neck lesion-1.[address] Gastroenterology has seen the patient and is recommending both EGD and EUS as an outpatient next week -Will need follow-up scheduled with [facility] DVT Prophylaxis: Heparin 5000U BID-we will hold for now in case of need for nerve block injection tomorrow Pt is DNR code status
[2017-10-23] MEDS: ATORVASTATIN 20 MG TAB PO SCH (21:55)
[2017-10-23 22:00] VITALS: BP 133/61; PULSE 60
[2017-10-23 23:05] VITALS: BP 110/63; PULSE 54; TEMP 36.6; O2SAT 94
[2017-10-24] MEDS: HYDROmorphone HCL 2 MG TAB PO PRN ×7 (01:04→20:51)
[2017-10-24 07:28] VITALS: BP 169/75; PULSE 69; TEMP 36.8; O2SAT 94
[2017-10-24] MEDS: LORAZEPAM 0.5 MG TAB PO PRN ×2 (07:44→21:01)
[2017-10-24] MEDS: FLUTICASONE PROPIONATE NA SPR 16 GM BTL NAE SCH (07:45)
[2017-10-24] MEDS: LACTOBACILLUS ACIDOPHILUS (FLORANEX) TAB PO SCH ×2 (07:45→21:02)
[2017-10-24] MEDS: CHOLECALCIFEROL 1000 INTER.UNIT TAB PO SCH (07:45)
[2017-10-24] MEDS: LORATADINE 10 MG TAB PO SCH (07:45)
[2017-10-24] MEDS: CALCITRIOL 0.25 MCG CAP PO SCH (07:46)
[2017-10-24] MEDS: LIDODERM (LIDOCAINE) PATCH 5% TD SCH (07:46)
[2017-10-24] MEDS: MAGNESIUM OXIDE 400 MG TAB PO SCH (07:46)
[2017-10-24] MEDS: ETHACRYNIC ACID 25 MG TAB PO SCH (07:47)
[2017-10-24] MEDS: LEUCOVORIN CALCIUM 5 MG TAB PO SCH (07:47)
[2017-10-24] MEDS: METHIMAZOLE 5 MG TAB PO SCH (07:47)
[2017-10-24] MEDS: METOPROLOL TARTRATE 25 MG TAB PO SCH ×2 (07:48→21:00)
[2017-10-24] MEDS: GABAPENTIN 100 MG CAP PO SCH ×2 (07:49→13:31)
[2017-10-24] MEDS: ONDANSETRON INJ 2 MG/ML 2 ML VIAL IV PRN (07:51)
[2017-10-24] MEDS: DOCUSATE SODIUM 100 MG CAP PO SCH ×2 (07:53→20:47)
[2017-10-24] MEDS: PSYLLIUM 58.6% PWD PACK S\\F PO SCH ×2 (07:54→20:47)
[2017-10-24 08:05] LABS: BASO % 0.4 %; BASO ABS # 0.03 K/uL (0-0.2); COMPLETE YES; EOS % 1.9 %; HEMATOCRIT 34.7 % (37-47); IG% 2.7 %; LYMPH % 26.5 %; LYMPH ABS # 1.93 K/uL (1.2-3.4); MEAN CELL VOLUME 92.5 fL (80-100); MEAN CORPUSCULAR HEMOGLOBIN 31.7 pg (25-34); MEAN CORPUSCULAR HGB CONC 34.3 g/dl (32-36); MEAN PLATELET VOLUME 8.8 fL (7.4-10.4); MONO % 8.9 %; NEUT % 59.6 %; PLATELET COUNT 224 K/uL (130-400); RED BLOOD COUNT 3.75 M/uL (4.2-5.4); WHITE BLOOD COUNT 7.29 K/uL (4.8-10.8)
[2017-10-24 08:29] LABS: CALCIUM 8.6 mg/dl (8.5-10.1); CREATININE 1.35 mg/dl (0.60-1.20); POTASSIUM 3.8 mmol/L (3.5-5.1)
[2017-10-24 15:00] VITALS: BP 109/65; PULSE 59; TEMP 36.5; O2SAT 97
[2017-10-24] MEDS: POLYETHYLENE (MIRALAX) 17 GM PACK PO SCH (20:00)
--- NOTE | 2017-10-24 20:28 | Hospitalist Progress Note ---
Hospitalist Progress Note Date of Service Oct 24, 2017. Subjective Pt evaluation today including: conversation w/ patient, conversation w/ corporate travel consultant (Pain Management) Patient reports continued severe pain in the left rib cage, although the pain in the mid back is improved with Dilaudid. She is not able to sit up at all and in fact is lying on her side eating lunch when I saw her. All Other Systems: Reviewed and Negative Objective Vital Signs Date Time Temp Pulse Resp B/P (MAP) Pulse Ox O2 Delivery O2 Flow Rate FiO2 10/24/17 07:30 Room Air 10/24/17 07:28 36.8 69 18 169/75 (106) 94 Room Air 10/23/17 23:10 Room Air 10/23/17 23:05 36.6 54 16 110/63 (79) 94 Room Air 10/23/17 22:00 60 133/61 (85) 10/23/17 15:50 36.8 55 20 110/58 (75) 97 Room Air 10/23/17 15:15 Room Air Physical Exam General Appearance: WD/WN, no apparent distress Eyes: normal inspection, sclerae normal ENT: hearing grossly normal Neck: trachea midline Respiratory/Chest: lungs clear, normal breath sounds, no respiratory distress, no accessory muscle use Cardiovascular: regular rate, rhythm, no edema, + systolic murmur (2/6 systolic ejection murmur at the left sternal border) Abdomen: normal bowel sounds, non tender, soft Extremities: normal inspection, no pedal edema Neurologic/Psychiatric: alert, normal mood/affect, oriented x 3 Skin: normal color, warm/dry, no rash Laboratory Results Last 24 Hours Test 10/24/17 07:37 White Blood Count 7.29 K/uL Red Blood Count 3.75 M/uL Hemoglobin 11.9 g/dL Hematocrit 34.7 % Mean Corpuscular Volume 92.5 fL Mean Corpuscular Hemoglobin 31.7 pg Mean Corpuscular Hemoglobin Concent 34.3 g/dl Platelet Count 224 K/uL Mean Platelet Volume 8.8 fL Neutrophils (%) (Auto) 59.6 % Lymphocytes (%) (Auto) 26.5 % Monocytes (%) (Auto) 8.9 % Eosinophils (%) (Auto) 1.9 % Basophils (%) (Auto) 0.4 % Neutrophils # (Auto) 4.34 K/uL Lymphocytes # (Auto) 1.93 K/uL Monocytes # (Auto) 0.65 K/uL Eosinophils # (Auto) 0.14 K/uL Basophils # (Auto) 0.03 K/uL RDW Standard Deviation 48.6 fL RDW Coefficient of Variation 14.4 % Immature Granulocyte % (Auto) 2.7 % Immature Granulocyte # (Auto) 0.20 K/uL Sodium Level 125 mmol/L Potassium Level 3.8 mmol/L Chloride Level 90 mmol/L Carbon Dioxide Level 29 mmol/L Anion Gap 7.0 mmol/L Blood Urea Nitrogen 31 mg/dl Creatinine 1.35 mg/dl Est Creatinine Clear Calc Drug Dose 31.9 ml/min Estimated GFR () 42.6 Estimated GFR (Non- 36.7 BUN/Creatinine Ratio 23.0 Random Glucose 91 mg/dl Calcium Level 8.6 mg/dl Assessment and Plan This patient is an 81-year-old female with a history of SLE, scleroderma, polymyositis on chronic prednisone, severe osteoporosis with multiple fractures , CKD stage III, gastroparesis, history of 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 T7 compression fracture/intercostal neuralgia/thoracic radiculitis-was overly sedated when on Nucynta, became hyponatremic with Cymbalta. Her home dose of gabapentin was increased upon admission, and she may have some relief with the Lidoderm patch and by mouth Dilaudid at least of the compression fracture pain. CT abd/pelvis unremarkable, hx of ischemic colitis, cdiff, but there is no suspicion of those at this time. MRI thoracic spine confirms T7 acute to subacute compression fracture as well as neural foraminal stenosis T11-12 The intercostal neuralgia remains with severely uncontrolled pain Orthopedics and Orthopedic spine consulted Pain management consulted-plan is for bedside intercostal nerve block tomorrow for diagnostic purposes, and if it is helpful in improving her pain, she can be set up for a RF ablation as an outpatient -Continue Lidoderm patch, by mouth Dilaudid when necessary for pain at an increased dose of 4 mg every 3 hours -Will give trial of Lyrica and discontinued gabapentin to see if helps with pain and has less side effects Continue Ativan 0.5 mg when necessary for anxiety and/or muscle spasm Jnffgykakjtc-zhto-nbudfewh and severe, with history of multiple pathological fractures. Has been on bisphosphonates, calcitonin, Forteo in the past. -Currently on Prolia -Continue calcitriol and cholecalciferol Chronic diastolic CHF/HL/HTN/CAD-No signs of exacerbation of CHF, BPs acceptable -cont home meds of atorvastatin, metoprolol -Hold ethacrynic acid for hyponatremia -Holding lisinopril right now for renal insufficiency Acute on chronic kidney disease stage 3/hyponatremia-creatinine around her baseline at 1.35. Sodium dropped to 130 the day after admission. It then further declined after starting Cymbalta down to 124. It then went up to 129, but now is back down again to 125. Cymbalta can cause SIADH, but patient reports this has happened to her in the past. -continue to hold lisinopril, we'll also hold ethacrynic acid for tomorrow -Consult nephrology for further recommendations -Check serum osmolality, urine osmolality and urine lytes now and again in the morning as she did receive her ethacrynic acid this morning and could be false results -Discontinued Cymbalta -Follow PRP -Avoid nephrotoxins -Renally dose medications Neuropathy-stable, present bilateral lower extremities and right arm -Was on neurontin but switching to Lyrica today Hyperthyroidism: TSH recently normal -Continue Methimazole 250Mg PO qAM Chronic Malabsorption status post gastrectomy -Continue Vit D, Mag, calcium, B12 supplements Right adnexal lesion-measuring 7.4 x 6.[address] scan. Patient reports she is followed routinely by gynecology every 3 months for this Pancreatic neck lesion-1.[address] Gastroenterology has seen the patient and is recommending both EGD and EUS as an outpatient next week -Will need follow-up scheduled with [id number] Prophylaxis: Heparin 5000U BID-we will continue to hold for now due to upcoming nerve block injection tomorrow Pt is DNR code status
[2017-10-24] MEDS: PREGABALIN 75 MG CAP PO SCH (21:01)
[2017-10-24] MEDS: ATORVASTATIN 20 MG TAB PO SCH (21:02)
[2017-10-24 22:44] VITALS: BP 94/59; PULSE 70; TEMP 36.9; O2SAT 94
[2017-10-25] MEDS: HYDROmorphone HCL 2 MG TAB PO PRN ×5 (00:25→21:14)
[2017-10-25 03:37] VITALS: BP 105/62
[2017-10-25 06:37] LABS: HEMATOCRIT 33.2 % (37-47); MEAN CELL VOLUME 92.2 fL (80-100); MEAN CORPUSCULAR HEMOGLOBIN 31.7 pg (25-34); MEAN CORPUSCULAR HGB CONC 34.3 g/dl (32-36); PLATELET COUNT 201 K/uL (130-400); WHITE BLOOD COUNT 10.06 K/uL (4.8-10.8)
[2017-10-25 06:46] VITALS: BP 124/63; PULSE 64; TEMP 36.6; O2SAT 93
[2017-10-25 07:10] LABS: BUN/CREATININE RATIO 24.8 (10-20); CALCIUM 8.8 mg/dl (8.5-10.1); CREATININE 1.45 mg/dl (0.60-1.20); POTASSIUM 3.7 mmol/L (3.5-5.1)
[2017-10-25] MEDS: DOCUSATE SODIUM 100 MG CAP PO SCH ×2 (07:29→21:14)
[2017-10-25] MEDS: PSYLLIUM 58.6% PWD PACK S\\F PO SCH ×2 (07:29→21:00)
[2017-10-25] MEDS ORDERED: BUPIVACAINE 0.5 % 5 MG/1 ML PF 10ML VIAL ONE ×2 (08:03→08:04)
--- NOTE | 2017-10-25 08:24 | CONSULTATION REPORT ---
DATE OF CONSULTATION: 10/24/2017 CHIEF COMPLAINT: Right costal rib pain. HISTORY: I had the opportunity to see Mariangel Phoenix. It is a very difficult situation, I have not really encountered in my career so to speak. She has this unrelenting rib cage pain and I could not get any back pain associated with it. She is unable to sit up, in fact has to eat on her side, her pain is legitimate, she is honest and straightforward. She has not taken narcotics in the past. OBJECTIVE: VITAL SIGNS: Stable, 36.8 temperature. GENERAL: Moves all extremities. Alert, oriented, communicates well. SKIN: Intact. There is no sign of zoster rashes. NEUROLOGIC: Moves all extremities. No back pain. I could not last evening elicit any pain with percussion, seemed to be pretty void of pain unrelenting area of the rib cage area. Radiographically, she does have a compression fracture at T7, looks to be a benign osteoporotic compression fracture. She does have a superiorly degenerative segment at T11-T12 which ironically could be the source of her pain. This could involve some issues with rib pain. ASSESSMENT: Undiagnosed pain that is unrelenting and quite serious for this patient, legitimate and difficult to diagnosis and it is difficult to treat. PLAN: At this point in time, I do not have any ideas or tricks from a surgical intervention. I am concerned about the degenerative segment at T11-T12, that that may be causing her pain. To repair that would be a fairly rigorous operation and I am not sure if it is indicated and I think the complications and risks are too high. Surgery for that area would be a poor choice. The kyphoplasty up at T7 would be great and I wish I could jump in and fix this poor lady out, but it is quite small and does not at all relate to her pain. I am not sure what the answer will be. Keep me posted as to her wellbeing. I am not planning any type of surgery. Hopefully, pain management can help somehow with some injection techniques but I am unsure. This is a very difficult story as I said many times. I will continue to follow.
[2017-10-25] MEDS: ONDANSETRON INJ 2 MG/ML 2 ML VIAL IV PRN (09:43)
[2017-10-25] MEDS ORDERED: HYDROmorphone HCL 2 MG TAB PO PRN ×2 (09:45→14:45)
[2017-10-25] MEDS: FLUTICASONE PROPIONATE NA SPR 16 GM BTL NAE SCH (09:46)
[2017-10-25] MEDS: CALCITRIOL 0.25 MCG CAP PO SCH (09:48)
[2017-10-25] MEDS: LORATADINE 10 MG TAB PO SCH (09:48)
[2017-10-25] MEDS: LACTOBACILLUS ACIDOPHILUS (FLORANEX) TAB PO SCH ×2 (09:48→21:14)
[2017-10-25] MEDS: MAGNESIUM OXIDE 400 MG TAB PO SCH (09:49)
[2017-10-25] MEDS: METOPROLOL TARTRATE 25 MG TAB PO SCH ×2 (09:49→21:17)
[2017-10-25] MEDS: METHIMAZOLE 5 MG TAB PO SCH (09:50)
[2017-10-25] MEDS: LEUCOVORIN CALCIUM 5 MG TAB PO SCH (09:50)
[2017-10-25] MEDS: PREGABALIN 75 MG CAP PO SCH ×2 (09:50→21:14)
[2017-10-25] MEDS: CHOLECALCIFEROL 1000 INTER.UNIT TAB PO SCH (09:51)
[2017-10-25] MEDS: LIDODERM (LIDOCAINE) PATCH 5% TD SCH (09:52)
--- NOTE | 2017-10-25 10:07 | NEPHROLOGY CONSULTATION ---
DATE OF CONSULTATION: 10/25/2017 ATTENDING OF RECORD: Dr. Roy. REASON FOR CONSULTATION: Hyponatremia. HISTORY OF PRESENT ILLNESS: This is an 81-year-old female who was admitted with rib pain. The patient with significant past medical history of severe osteoporosis with compression fracture at T7, with underlying CKD stage III and secondary hyperparathyroidism with mixed connective tissue disease, who has chronic neuropathy of her lower extremities secondary to side effect from the vancomycin for her C. diff colitis and is now wheelchair bound. When the patient was admitted, sodium level was 137 on 10/15/2017, went down to 130 on 10/17/2017, and from 10/19/2017 to 10/25/2017, has ranged from 124 to 129, is currently 126 morning with urine osmolality of 158. The patient was placed on 1500 mL fluid restriction yesterday and is currently undergoing a nerve block this morning. PAST MEDICAL HISTORY: Mixed connective tissue disease, hyperparathyroidism, hyperthyroidism, spinal stenosis, hypertension, C. diff requiring a fecal transplant, CHF, hyperlipidemia, GERD, compression fractures. PAST SURGICAL HISTORY: Subtotal gastrectomy with vagotomy, cholecystectomy, hysterectomy, multiple spinal surgeries, appendectomy. FAMILY HISTORY: Significant for heart disease. SOCIAL HISTORY: No smoking, no alcohol, no drugs. Lives with family. CURRENT MEDICATIONS: Lyrica 75 mg p.o. b.i.d., Colace 100 mg p.o. b.i.d., vitamin D 3000 units daily, Lidoderm patch daily, Lipitor 20 mg at night, MiraLax 17 grams daily, Floranex 4 tabs p.o. b.i.d., calcitriol 0.25 mcg daily, leucovorin 5 mg daily, Claritin 10 mg daily, methimazole 2.5 mg daily, Lopressor 12.5 mg p.o. b.i.d., prednisone 5 mg daily, magnesium oxide 400 mg daily. REVIEW OF SYSTEMS: Pain in the ribs. Decreased appetite. No nausea or vomiting. No diarrhea or constipation. No chest pain or shortness of breath. No headaches or blurry vision. All other review of systems otherwise negative. PHYSICAL EXAMINATION: VITAL SIGNS: Temperature 36.6, pulse 64, respiratory rate is 18, blood pressure 124/63, satting 93% on room air. GENERAL: Awake, alert, oriented x3. EYES: No scleral icterus. ENT: Moist mucous membranes. NECK: Supple. PULMONARY: Clear to auscultation. CARDIAC: Regular rate and rhythm. ABDOMEN: Bowel sounds positive, soft, does have some tenderness at the left upper quadrant. EXTREMITIES: No clubbing, cyanosis or edema. NEUROLOGICAL: Has significant neuropathy and is wheelchair bound. LABORATORY DATA: Urine osm 158. Random urine sodium 16. White count is 10, H&H 11 and 33, platelet count is 201. Sodium level is 126, potassium 3.7, chloride is 91, bicarbonate is 30, BUN is 36, creatinine is 1.45. Glucose is 92. Serum osmolality is 273. Calcium is 8.8. IMPRESSION AND PLAN: Hyponatremia, likely secondary to drinking lots of water. Technically, does not have SIADH with urine osmolality under 300 and sodium levels should improve as we restrict fluids, currently on 1500 mL fluid restriction. Would recommend continuing the Edecrin which will help raise the sodium levels. Creatinine is relatively stable. Volume status in my opinion appears euvolemic with good blood pressure. For now, would continue 1500 mL fluid restriction and restart the Edecrin with a goal of serum sodium greater than 130. I appreciate consultation. MARLA
--- NOTE | 2017-10-25 10:20 | Pain Management Progress Note ---
Pain Management Progress Note Date of Service Oct 25, 2017. Subjective Continues to complain of left lower quadrant pain and mid thoracic spine pain with movement. Continues to use higher oral dose of hydromorphone with no perceived benefit but experiences sedation. Staff reports patient sleep comfortably but only complains when awake. Refused to consider kyphoplasty due to fears of infection. Pain Location 1 - Left lower quadrant rib pain 2 - Axia T-spine pain Objective Vital Signs: Last Vital Signs Documentation Date Time Temp Pulse Resp B/P (MAP) Pulse Ox O2 Delivery O2 Flow Rate FiO2 10/25/17 06:46 36.6 64 18 124/63 (83) 93 Room Air Physical Exam: A/O. Lying in right lateral decubitus position in bed without distress. Poor hearing acuity. Minimal tenderness to palpation left approximate rib 6, 7. Tenderness to palpation mid thoracis spine. Intact sensation over trunk. Laboratory Laboratory Findings 10/25/17 06:26 Assessment 1. Rib pain left 6,7 ribs. 2. T7 vertebral fracture. 3. Thoracic radiculitis. 4. Poor efficacy with opioids. 5. Anxiety Recommendations 1. Reduce opioid dose and frequency as there is no improvement and is experiencing side effects. 2. Diagnostic intercostal nerve blocks left ribs approximately at levels 6,7 and 8 offered to determine if her symptoms are from ribs vs thoracic radiculitis. Risk, including hemo/pneumo thorax with subsequent chest tube placement, infection, bleeding, no pain relief and infection reviewed. 30 minutes were spent discussing the interventional approaches, opioid use and surgical evaluation. At the end, she elected to try the intercostal nerve blocks.
--- NOTE | 2017-10-25 11:03 | DIAGNOSTIC IMAGING REPORT ---
CHEST 2 VIEWS ROUTINE CLINICAL HISTORY: s/p rib blocks left 6,7,8. Evaluate for pneumo/hemo thorax COMPARISON STUDY: 10/15/2017 FINDINGS: There is elevation right hemidiaphragm. The heart is normal in size. There is no focal pulmonary consolidation. There are no pleural effusions. There is no pneumothorax.[ IMPRESSION: No pneumothorax status post left-sided rib block. Electronically signed by: Virgilio Galarza M.D. 10/25/2017 11:02 AM Dictated Date/Time: 10/25/2017 11:01 AM
--- NOTE | 2017-10-25 11:20 | Pain Clinic Procedure Note ---
Pain Management Procedure Note Date of Procedure Oct 25, 2017. Procedure Description Procedure: Left 6,7,8 intercostal nerve blocks Procedure Time Out: side/site verified, patient ID confirmed, correct procedure Consent Obtained: written Performed By: Dr. Rabago Indications: diagnostic Contraindications: none Pre Procedure Vital Signs Date Time Temp Pulse Resp B/P (MAP) Pulse Ox O2 Delivery O2 Flow Rate FiO2 10/25/17 06:46 36.6 64 18 124/63 (83) 93 Room Air 10/25/17 03:37 105/62 (76) ASA Class: 3 Description: INTERCOSTAL NERVE BLOCK Diagnosis: Intercostal neuralgia. Side/Level injected: Left T6, 7 and 8 at the midaxillary line Surgeon: Dr. Rabago Prior to starting, the Patients diagnosis and the procedure were reviewed with the patient in detail. Possible risks and complications including infection, bleeding, hemothorax, pneumothorax, damage to surrounding structures and increased pain were discussed. Diagnostic nature the procedure was also discussed . Alternative therapies were also reviewed. Patients questions were answered and they agreed to proceed. Informed consent was obtained. Allergies and medication list was reviewed. The patient was brought to the procedure room and placed in lateral decubitus position. Immediately prior to starting the procedure, a time out was conducted with the staff and the patient where the patient was identified, proposed procedure was verified, consent was reviewed and the proper site for the planned procedure was identified. Monitors used included intermittent blood pressure with automated device, continuous pulse oximetry and level of consciousness. Patient was not given any intravenous sedation and constant verbal contact was maintained throughout the procedure. Biplanar fluoroscopy was used to assist in placement of the needle as well as to evaluate final needle position prior to the injection. On examination, no signs of skin breakdown or infection were noted at the injection site. The site was cleansed with ChloraPrep followed by Betadine. Sterile drapes were applied. Next, appropriate rib on the appropriate side identified by palpation. Clinically, it appeared to be approximately ribs #67 and 8. A 25 gauge, 1.5 inch needle was introduced through the skin and placed at the inferior edge of the rib and advanced until it made contact with the rib. The needle was then walked off the inferior margin of the rib into the neurovascular bundle. No paresthesia were felt nor blood or air was aspirated. . 2.5 mL of 0.5% bupivacaine was injected. Needle was withdrawn. Hemostasis was noted. Band- Aids were applied at the site. Chest x-ray was obtained to evaluate for any humeral or pneumothorax. Breath sounds remain symmetrical. Patient tolerated the procedure uneventfully without complications. Complications: none Patient Tolerated Procedure: well Post-Procedure Vital Signs: Vital Signs Date Time Temp Pulse Resp B/P (MAP) Pulse Ox O2 Delivery O2 Flow Rate FiO2 10/25/17 06:46 36.6 64 18 124/63 (83) 93 Room Air Discharge Instructions: reviewed & understood Additional Comments: Approximately 5 minutes after the discussed nerve blocks, patient was able to sit up and rotate her thoracic spine with significant decreased amount of pain.
--- NOTE | 2017-10-25 13:01 | Medical Student: [facility] ---
Med Student Progress Note Date of Service Oct 25, 2017. Subjective Pt evaluation today including: conversation w/ patient, physical exam, chart review, lab review Pt is an 81 yo F who came in with several abdominal/rib pain. She had received a diagnostic nerve block for her pain in the rib area with Bupivicaine done by Dr. Rabago about an hour before I spoke with her. She says she noticed minimal improvement but could now sit up whereas before the nerve block, sitting up was extremely difficult to achieve. Pain still severe though and pt prefers lying on her right side. Pt is also receiving Dilaudid and reports that it takes away her mid-back pain from the T7 compression fracture. Review of Systems Constitutional: No fever, No chills Eyes: No worsening of vision ENT: No hearing loss Respiratory: No cough, No sputum, No wheezing, No shortness of breath Cardiac: No chest pain Abdomen: No pain, No nausea Musculoskeletal: + see HPI Female : No dysuria Neurologic: No memory loss Psychiatric: No depression symptoms Heme: No abnormal bleeding/bruising Endo: No fatigue Skin: No rash, No itch Objective Vital Signs Date Time Temp Pulse Resp B/P (MAP) Pulse Ox O2 Delivery O2 Flow Rate FiO2 10/25/17 07:30 Room Air 10/25/17 06:46 36.6 64 18 124/63 (83) 93 Room Air 10/25/17 03:37 105/62 (76) 10/25/17 00:25 Room Air 10/24/17 22:44 36.9 70 18 94/59 (71) 94 Room Air 10/24/17 15:50 Room Air 10/24/17 15:00 36.5 59 18 109/65 (80) 97 Room Air Physical Exam General Appearance: WD/WN, + mild distress Eyes: bilateral eyes normal inspection, bilateral eyes PERRL, bilateral eyes EOMI (bothered by her pain at times) ENT: normal ENT inspection, hearing grossly normal Neck: supple, no adenopathy, thyroid normal, no JVD Respiratory/Chest: chest non-tender, lungs clear, normal breath sounds, no respiratory distress Cardiovascular: regular rate, rhythm, no edema, + systolic murmur (2/6 murmur at the left midclavicular line / mitral gabriella. Pt has hx of mitral regurgitation secondary to rheumatic fever from childhood) Abdomen: normal bowel sounds, non tender, soft Extremities: normal range of motion, non-tender, normal inspection, no pedal edema Neurologic/Psychiatric: alert, normal mood/affect, oriented x 3 Skin: normal color, warm/dry Comments: mid back pain likely from T7 compression fracture was made worse with light palpation Laboratory Results Last 24 Hours Test 10/24/17 13:20 10/24/17 13:30 10/24/17 21:25 10/25/17 06:26 Osmolality 270 mOsm/kg 273 mOsm/kg Urine Osmolality 162 mOms/kg 158 mOms/kg Urine Random Sodium 35 mEq/L 16 mEq/L White Blood Count 10.06 K/uL Red Blood Count 3.60 M/uL Hemoglobin 11.4 g/dL Hematocrit 33.2 % Mean Corpuscular Volume 92.2 fL Mean Corpuscular Hemoglobin 31.7 pg Mean Corpuscular Hemoglobin Concent 34.3 g/dl RDW Standard Deviation 48.8 fL RDW Coefficient of Variation 14.4 % Platelet Count 201 K/uL Mean Platelet Volume 9.0 fL Sodium Level 126 mmol/L Potassium Level 3.7 mmol/L Chloride Level 91 mmol/L Carbon Dioxide Level 30 mmol/L Anion Gap 5.0 mmol/L Blood Urea Nitrogen 36 mg/dl Creatinine 1.45 mg/dl Est Creatinine Clear Calc Drug Dose 29.7 ml/min Estimated GFR () 39.0 Estimated GFR (Non- 33.7 BUN/Creatinine Ratio 24.8 Random Glucose 92 mg/dl Calcium Level 8.8 mg/dl Medications Current Inpatient Medications Medications (Trade) Dose Ordered Sig/[place] Route Start Time Stop Time Status Last Admin Dose Admin Acetaminophen (Tylenol Tab) 650 mg Q4H PRN PO 10/15/17 22:00 11/14/17 21:59 10/23/17 22:03 650 MG Al Hydrox/Mg Hydrox/Simethicone (Maalox Max Susp) 15 ml Q4H PRN PO 10/15/17 22:00 11/14/17 21:59 10/22/17 23:31 15 ML Magnesium Hydroxide (Milk Of Magnesia Susp) 30 ml Q6H PRN PO 10/15/17 22:00 11/14/17 21:59 Polyethylene (Miralax Powder Packet) 17 gm DAILY PRN PO 10/15/17 22:00 11/14/17 21:59 12/15/17 10:09 17 GM Ondansetron HCl (Zofran Inj) 4 mg Q6H PRN IV 10/15/17 22:00 11/14/17 21:59 10/25/17 09:43 4 MG Heparin Sodium (Porcine) (Heparin Sq 5000 Unit/0.5ml) 5,000 unit Q12H SQ 10/16/17 06:00 11/15/17 05:59 Future Hold 10/23/17 06:08 5,000 UNIT Atorvastatin Calcium (Lipitor Tab) 20 mg HS PO 10/16/17 21:00 11/15/17 20:59 10/24/17 21:02 20 MG Calcitriol (Rocaltrol Cap) 0.25 mcg QAM PO 10/16/17 09:00 11/15/17 08:59 10/25/17 09:48 0.25 MCG Ethacrynic Acid (Edecrin Tab) 100 mg QAM PO 10/16/17 09:00 11/15/17 08:59 Future hold 10/24/17 07:47 100 MG Leucovorin Calcium (Leucovorin Calcium Tab) 5 mg DAILY PO 10/16/17 09:00 11/15/17 08:59 10/25/17 09:50 5 MG Loratadine (Claritin Tab) 10 mg QAM PO 10/16/17 09:00 11/15/17 08:59 10/25/17 09:48 10 MG Methimazole (Methimazole Tab) 2.5 mg QAM PO 10/16/17 09:00 11/15/17 08:59 10/25/17 09:50 2.5 MG Metoprolol Tartrate (Lopressor Tab) 12.5 mg BID PO 10/16/17 09:00 11/15/17 08:59 10/25/17 09:49 12.5 MG Prednisone (PredniSONE TAB) 5 mg QAM PO 10/16/17 09:00 11/15/17 08:59 10/25/17 09:49 5 MG Miscellaneous Information (Order Awaiting Action) 1 ea QS N/A 10/16/17 08:00 11/15/17 07:59 Miscellaneous Information (Order Awaiting Action) 1 ea QS N/A 10/16/17 08:00 11/15/17 07:59 Magnesium Oxide (Mag-Ox Tab) 400 mg QAM PO 10/16/17 09:00 11/15/17 08:59 10/25/17 09:49 400 MG Fluticasone Propionate (Flonase Nasal [place]) 2 sprays DAILY ROBIN 10/16/17 09:00 11/15/17 08:59 10/25/17 09:46 2 SPRAYS Polyethylene (Miralax Powder Packet) 17 gm DAILY@1999 PO 10/16/17 20:00 11/15/17 19:59 10/23/17 08:51 17 GM Miscellaneous (Iv Fluids Completed) 1 ea PRN PRN N/A 10/15/17 22:45 10/15/18 22:44 Lactobacillus Acidophilus (Floranex Tab) 4 tab BID PO 10/16/17 21:00 11/15/17 20:59 10/25/17 09:48 4 TAB Cholecalciferol (Vitamin D Tab) 3,000 inter.unit QAM PO 10/17/17 09:00 11/16/17 08:59 10/25/17 09:51 3,000 INTER.UNIT Lidocaine (Lidoderm Patch 5%) 1 patch QAM TD 10/17/17 09:00 11/16/17 08:59 10/25/17 09:52 1 PATCH Miscellaneous (Remove Lidoderm Patch) 1 ea DAILY@21 N/A 10/17/17 21:00 11/16/17 20:59 10/24/17 21:02 1 EA Psyllium Hydrophilic Mucilloid (Metamucil Powder) 1 pkt BID PO 10/17/17 21:00 11/16/17 20:59 Docusate Sodium (coLACE CAP) 100 mg BID PO 10/17/17 21:00 11/16/17 20:59 10/23/17 21:55 100 MG Lorazepam (Ativan Tab) 0.5 mg Q6 PRN PO 10/23/17 11:45 11/17/17 08:44 10/24/17 21:01 0.5 MG Pregabalin (Lyrica Cap) 75 mg BID PO 10/24/17 21:00 11/23/17 20:59 10/25/17 09:50 75 MG Hydromorphone HCl (Dilaudid Tab) 2 mg Q4HWA PRN PO 10/25/17 09:45 11/04/17 11:29 10/25/17 10:54 2 MG Assessment and Plan Assessment and Plan: This patient is an 81-year-old female with a history of SLE, scleroderma, polymyositis, osteoporosis with multiple fractures, CKD stage III, gastroparesis , 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 Will continue Dilaudid q 4H PRN - The intercostal neuralgia remains with severely uncontrolled pain - Pain management consulted: diagnostic nerve block completed this morning which pt reported minimal improvement but did seem to make pain less unbearable to the point where she can stand up. Possibly discuss of RF ablation as outpatient - Orthopedics and Orthopedic spine consulted - Gabapentin discontinued and trial of Lyrica was given this morning - Continue Ativan 0.5 mg PRN for anxiety and/or muscle spasm Long-standing osteoporosis with history of multiple pathological fractures. Past meds include bisphosphonates, calcitonin, Forteo - Currently on Prolia, continue calcitriol and cholecalciferol Chronic diastolic CHF/HL/HTN/CAD - No signs of CHF exacerbation - Continue atorvastatin and metoprolol - Hold ethacrynic acid for hyponatremia. Continue to monitor - Hold lisinopril right now for renal insufficiency. Continue to monitor Acute on chronic kidney disease stage III / Hyponatremia - Baseline creatinine 1.35. This morning 1.45 - Day after admission pt's sodium dropped to 130. With Cymbalta, it went down further to 124. This morning her level was 126. - Hold lisinopril and ethacrynic acid - Cymbalta discontinued - Avoid nephrotoxins - Renally dose medications and avoid nephrotoxins - Nephrology consult Neuropathy -Switched to Lyrica this morning Hyperthyroidism: TSH recently normal -Continue Methimazole 250 mg PO q AM Chronic malabsorption s/p gastrectomy -Continue to supplement vitamin D, magnesium, calcium, and B12 Right adnexal lesion - 7.4 x 6[address] scan - Pt reports outpt women specialist f/u every 3 months Pancreatic neck lesion - 1.[address] - Gastroenterology recommends EGD and EUS as outpt next week - [facility] f/u appt needed DVT Prophylaxis - Heparin 5000U BID held until nerve block this morning. Code Status - DNR
[2017-10-25] MEDS: LORAZEPAM 0.5 MG TAB PO PRN ×2 (14:29→21:21)
[2017-10-25 15:02] VITALS: BP 132/69; PULSE 69; TEMP 36.8; O2SAT 90
[2017-10-25] MEDS ORDERED: NURSING VERBAL MED ORDER ONE (15:15)
--- NOTE | 2017-10-25 15:31 | Progress Note ---
Subjective Date of Service: Oct 25, 2017. Subjective Pt evaluation today including: conversation w/ patient, conversation w/ family , physical exam, chart review, lab review, review of studies, review of inpatient medication list Pt s/p nerve block Reports pain is 7/10 and only improved with dilaudid Looks comfortable when she sleeps per staff States she can barely sit up to eat but noted to be sitting up while conversing with her Problem List Medical Problems: (1) Abdominal pain Status: Acute (2) Back pain Status: Acute (3) Hypotension Status: Acute (4) Ischemic colitis Status: Acute (5) Rectal bleed Status: Acute (6) Rib pain Status: Acute Review of Systems Constitutional: No fever, No chills, No sweats, No weight loss, No weakness Eyes: No worsening of vision, No eye pain, No redness, No discharge ENT: No hearing loss, No unusual epistaxis, No nasal symptoms, No sore throat, No tinnitus Respiratory: No cough, No sputum, No wheezing, No shortness of breath, No dyspnea on exertion Cardiac: No chest pain, No orthopnea, No PND, No edema, No claudication Abdomen: No pain, No nausea, No vomiting, No diarrhea, No constipation Musculoskeletal: + joint pain, + muscle pain Female : No dysuria, No urinary frequency, No hematuria, No incontinence Neurologic: No memory loss, No paralysis, No weakness, No numbness/tingling Psychiatric: + depression symptoms, + anxiety, No anhedonism, No insomnia Endo: No fatigue, No excessive thirst Skin: No rash, No itch Objective Vital Signs Date Time Temp Pulse Resp B/P (MAP) Pulse Ox O2 Delivery O2 Flow Rate FiO2 10/25/17 15:02 36.8 69 20 132/69 (90) 90 Room Air 10/25/17 07:30 Room Air 10/25/17 06:46 36.6 64 18 124/63 (83) 93 Room Air 10/25/17 03:37 105/62 (76) 10/25/17 00:25 Room Air 10/24/17 22:44 36.9 70 18 94/59 (71) 94 Room Air 10/24/17 15:50 Room Air Physical Exam General Appearance: WD/WN, + mild distress Eyes: normal inspection, PERRL, EOMI, sclerae normal Neck: supple, no adenopathy, thyroid normal, no JVD Respiratory/Chest: chest non-tender, lungs clear, normal breath sounds, no respiratory distress Cardiovascular: no edema, no gallop, no JVD, no murmur Abdomen: normal bowel sounds, soft, no organomegaly, + tenderness Extremities: normal range of motion, normal inspection, no pedal edema, no calf tenderness Neurologic/Psychiatric: no motor/sensory deficits, alert, oriented x 3, + depressed affect Skin: normal color, warm/dry, no rash Lymphatic: no adenopathy Laboratory Results Last 24 Hours Test 10/24/17 21:25 10/25/17 06:26 Urine Osmolality 158 mOms/kg Urine Random Sodium 16 mEq/L White Blood Count 10.06 K/uL Red Blood Count 3.60 M/uL Hemoglobin 11.4 g/dL Hematocrit 33.2 % Mean Corpuscular Volume 92.2 fL Mean Corpuscular Hemoglobin 31.7 pg Mean Corpuscular Hemoglobin Concent 34.3 g/dl RDW Standard Deviation 48.8 fL RDW Coefficient of Variation 14.4 % Platelet Count 201 K/uL Mean Platelet Volume 9.0 fL Sodium Level 126 mmol/L Potassium Level 3.7 mmol/L Chloride Level 91 mmol/L Carbon Dioxide Level 30 mmol/L Anion Gap 5.0 mmol/L Blood Urea Nitrogen 36 mg/dl Creatinine 1.45 mg/dl Est Creatinine Clear Calc Drug Dose 29.7 ml/min Estimated GFR () 39.0 Estimated GFR (Non- 33.7 BUN/Creatinine Ratio 24.8 Random Glucose 92 mg/dl Osmolality 273 mOsm/kg Calcium Level 8.8 mg/dl Assessment and Plan This patient is an 81-year-old female with a history of SLE, scleroderma, polymyositis on chronic prednisone, severe osteoporosis with multiple fractures , CKD stage III, gastroparesis, history of 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 T7 compression fracture/intercostal neuralgia/thoracic radiculitis-was overly sedated when on Nucynta, became hyponatremic with Cymbalta. Her home dose of gabapentin was increased upon admission, and she may have some relief with the Lidoderm patch and by mouth Dilaudid at least of the compression fracture pain. CT abd/pelvis unremarkable, hx of ischemic colitis, cdiff, but there is no suspicion of those at this time. MRI thoracic spine confirms T7 acute to subacute compression fracture as well as neural foraminal stenosis T11-12 The intercostal neuralgia improved s/p intercostal nerve block on 10/25 Orthopedics and Orthopedic spine consulted Pain management consulted-plan is for bedside intercostal nerve block tomorrow for diagnostic purposes, and if it is helpful in improving her pain, she can be set up for a RF ablation as an outpatient -Continue Lidoderm patch, attempt to taper dilaudid -Will continue trial of Lyrica and discontinued gabapentin to see if helps with pain and has less side effects Continue Ativan 0.5 mg when necessary for anxiety and/or muscle spasm [id number] and severe, with history of multiple pathological fractures. Has been on bisphosphonates, calcitonin, Forteo in the past. -Currently on Prolia -Continue calcitriol and cholecalciferol Chronic diastolic CHF/HL/HTN/CAD-No signs of exacerbation of CHF, BPs acceptable -cont home meds of atorvastatin, metoprolol -Hold ethacrynic acid for hyponatremia -Holding lisinopril right now for renal insufficiency Acute on chronic kidney disease stage 3/hyponatremia-creatinine around her baseline at 1.35. Sodium dropped to 130 the day after admission. It then further declined after starting Cymbalta down to 124. It then went up to 129, but now is back down again to 126. Cymbalta can cause SIADH, but patient reports this has happened to her in the past. -continue to hold lisinopril, we'll also hold ethacrynic acid for tomorrow -Consult nephrology for further recommendations -Check serum osmolality, urine osmolality and urine lytes now and again in the morning as she did receive her ethacrynic acid this morning and could be false results -Discontinued Cymbalta -Follow PRP -Avoid nephrotoxins -Renally dose medications Neuropathy-stable, present bilateral lower extremities and right arm -Was on neurontin but switching to Lyrica today Hyperthyroidism: TSH recently normal -Continue Methimazole 250Mg PO qAM Chronic Malabsorption status post gastrectomy -Continue Vit D, Mag, calcium, B12 supplements Right adnexal lesion-measuring 7.4 x [address] scan. Patient reports she is followed routinely by gynecology every 3 months for this Pancreatic neck lesion-1.[address] Gastroenterology has seen the patient and is recommending both EGD and EUS as an outpatient next week -Will need follow-up scheduled with [facility] DVT Prophylaxis: Heparin 5000U BID-we will continue to hold for now due to upcoming nerve block injection tomorrow Pt is DNR code status
[2017-10-25] MEDS: POLYETHYLENE (MIRALAX) 17 GM PACK PO SCH (20:00)
[2017-10-25] MEDS: ATORVASTATIN 20 MG TAB PO SCH (21:14)
[2017-10-25 22:45] VITALS: BP 103/62; PULSE 58; TEMP 36.7; O2SAT 97
[2017-10-26] MEDS: HYDROmorphone HCL 2 MG TAB PO PRN ×6 (01:29→22:52)
[2017-10-26 07:30] VITALS: BP 124/63; PULSE 58; TEMP 36.6; O2SAT 95
[2017-10-26] MEDS: DOCUSATE SODIUM 100 MG CAP PO SCH ×2 (07:39→22:06)
[2017-10-26] MEDS: PSYLLIUM 58.6% PWD PACK S\\F PO SCH ×2 (07:40→21:00)
[2017-10-26] MEDS: ONDANSETRON INJ 2 MG/ML 2 ML VIAL IV PRN (08:31)
[2017-10-26] MEDS: FLUTICASONE PROPIONATE NA SPR 16 GM BTL NAE SCH (09:27)
[2017-10-26] MEDS: LORATADINE 10 MG TAB PO SCH (09:27)
[2017-10-26] MEDS: LACTOBACILLUS ACIDOPHILUS (FLORANEX) TAB PO SCH ×2 (09:27→22:07)
[2017-10-26] MEDS: METOPROLOL TARTRATE 25 MG TAB PO SCH ×2 (09:28→22:08)
[2017-10-26] MEDS: CHOLECALCIFEROL 1000 INTER.UNIT TAB PO SCH (09:28)
[2017-10-26] MEDS: LEUCOVORIN CALCIUM 5 MG TAB PO SCH (09:29)
[2017-10-26] MEDS: MAGNESIUM OXIDE 400 MG TAB PO SCH (09:29)
--- NOTE | 2017-10-26 09:29 | Nephrology Progress Note ---
Nephrology Progress Note Date of Service: Oct 26, 2017. Subjective 81 yo female with hyponatremia in the setting of pain and may have underlying siadh, although initial urine osm was below 300. currently treating with fluid restriction. sodium was up 126. pt had nerve block yesterday however continues to be in pain. Objective Date Time Temp Pulse Resp B/P (MAP) Pulse Ox O2 Delivery O2 Flow Rate FiO2 10/26/17 07:30 36.6 58 16 124/63 (83) 95 Room Air 10/25/17 23:30 Room Air 10/25/17 22:45 36.7 58 18 103/62 (76) 97 Room Air 10/25/17 16:10 Room Air 10/25/17 15:02 36.8 69 20 132/69 (90) 90 Room Air Physical Exam: General-aaox3 Eyes-no scleral icterus ENT-mmm Neck-supple Lungs-cta Heart-geovanni Abdomen-bs+ s/nt/nd Extremities-no c/c/e Neuro-neuropathy/wheelchair bound Current Inpatient Medications Medications (Trade) Dose Ordered Sig/[place] Route Start Time Stop Time Status Last Admin Dose Admin Acetaminophen (Tylenol Tab) 650 mg Q4H PRN PO 10/15/17 22:00 11/14/17 21:59 10/23/17 22:03 650 MG Al Hydrox/Mg Hydrox/Simethicone (Maalox Max Susp) 15 ml Q4H PRN PO 10/15/17 22:00 11/14/17 21:59 10/22/17 23:31 15 ML Magnesium Hydroxide (Milk Of Magnesia Susp) 30 ml Q6H PRN PO 10/15/17 22:00 11/14/17 21:59 Polyethylene (Miralax Powder Packet) 17 gm DAILY PRN PO 10/15/17 22:00 11/14/17 21:59 10/21/17 10:09 17 GM Ondansetron HCl (Zofran Inj) 4 mg Q6H PRN IV 10/15/17 22:00 11/14/17 21:59 10/25/17 09:43 4 MG Heparin Sodium (Porcine) (Heparin Sq 5000 Unit/0.5ml) 5,000 unit Q12H SQ 10/16/17 06:00 11/15/17 05:59 Future Hold 10/23/17 06:08 5,000 UNIT Atorvastatin Calcium (Lipitor Tab) 20 mg HS PO 10/16/17 21:00 11/15/17 20:59 10/25/17 21:14 20 MG Calcitriol (Rocaltrol Cap) 0.25 mcg QAM PO 10/16/17 09:00 11/15/17 08:59 10/25/17 09:48 0.25 MCG Ethacrynic Acid (Edecrin Tab) 100 mg QAM PO 10/16/17 09:00 11/15/17 08:59 Future hold 10/24/17 07:47 100 MG Leucovorin Calcium (Leucovorin Calcium Tab) 5 mg DAILY PO 10/16/17 09:00 11/15/17 08:59 10/25/17 09:50 5 MG Loratadine (Claritin Tab) 10 mg QAM PO 10/16/17 09:00 11/15/17 08:59 10/25/17 09:48 10 MG Methimazole (Methimazole Tab) 2.5 mg QAM PO 10/16/17 09:00 11/15/17 08:59 10/25/17 09:50 2.5 MG Metoprolol Tartrate (Lopressor Tab) 12.5 mg BID PO 10/16/17 09:00 11/15/17 08:59 10/25/17 21:17 12.5 MG Prednisone (PredniSONE TAB) 5 mg QAM PO 10/16/17 09:00 11/15/17 08:59 10/25/17 09:49 5 MG Miscellaneous Information (Order Awaiting Action) 1 ea QS N/A 10/16/17 08:00 11/15/17 07:59 Miscellaneous Information (Order Awaiting Action) 1 ea QS N/A 10/16/17 08:00 11/15/17 07:59 Magnesium Oxide (Mag-Ox Tab) 400 mg QAM PO 10/16/17 09:00 11/15/17 08:59 10/25/17 09:49 400 MG Fluticasone Propionate (Flonase Nasal [place]) 2 sprays DAILY ROBIN 10/16/17 09:00 11/15/17 08:59 10/25/17 09:46 2 SPRAYS Polyethylene (Miralax Powder Packet) 17 gm DAILY@1999 PO 10/16/17 20:00 1/9/18 19:59 10/23/17 08:51 17 GM Miscellaneous (Iv Fluids Completed) 1 ea PRN PRN N/A 10/15/17 22:45 10/15/18 22:44 Lactobacillus Acidophilus (Floranex Tab) 4 tab BID PO 10/16/17 21:00 11/15/17 20:59 10/25/17 21:14 4 TAB Cholecalciferol (Vitamin D Tab) 3,000 inter.unit QAM PO 10/17/17 09:00 11/16/17 08:59 10/25/17 09:51 3,000 INTER.UNIT Lidocaine (Lidoderm Patch 5%) 1 patch QAM TD 10/17/17 09:00 11/16/17 08:59 10/25/17 09:52 1 PATCH Miscellaneous (Remove Lidoderm Patch) 1 ea DAILY@21 N/A 10/17/17 21:00 11/16/17 20:59 10/25/17 21:17 1 EA Psyllium Hydrophilic Mucilloid (Metamucil Powder) 1 pkt BID PO 10/17/17 21:00 11/16/17 20:59 Docusate Sodium (coLACE CAP) 100 mg BID PO 10/17/17 21:00 11/16/17 20:59 10/25/17 21:14 100 MG Lorazepam (Ativan Tab) 0.5 mg Q6 PRN PO 10/23/17 11:45 11/17/17 08:44 10/25/17 21:21 0.5 MG Pregabalin (Lyrica Cap) 75 mg BID PO 10/24/17 21:00 11/23/17 20:59 10/25/17 21:14 75 MG Hydromorphone HCl (Dilaudid Tab) 2 mg Q4H PRN PO 10/25/17 15:30 11/08/17 15:29 10/26/17 05:44 2 MG Last 24 Hours Test 10/26/17 08:29 Assessment & Plan hyponatremia-sodium up to 126. today's labs are pending. urine osm continues to be below 300 so should improve with fluid restriction and continue demadex.
[2017-10-26] MEDS: PREGABALIN 75 MG CAP PO SCH ×2 (09:30→22:07)
[2017-10-26] MEDS: METHIMAZOLE 5 MG TAB PO SCH (09:30)
[2017-10-26] MEDS: ETHACRYNIC ACID 25 MG TAB PO SCH (09:30)
[2017-10-26] MEDS: LORAZEPAM 0.5 MG TAB PO PRN ×2 (09:30→18:24)
[2017-10-26] MEDS: CALCITRIOL 0.25 MCG CAP PO SCH (09:30)
[2017-10-26] MEDS: LIDODERM (LIDOCAINE) PATCH 5% TD SCH (09:31)
[2017-10-26 09:40] LABS: BUN/CREATININE RATIO 28.7 (10-20); CALCIUM 9.1 mg/dl (8.5-10.1); CREATININE 1.11 mg/dl (0.60-1.20); POTASSIUM 3.9 mmol/L (3.5-5.1)
--- NOTE | 2017-10-26 12:46 | Pain Management Progress Note ---
Pain Management Progress Note Date of Service Oct 26, 2017. Cristhian August reports no pain relief from the diagnostic intercostal nerve blocks today. She has been using hydromorphone on a regular basis and reports persistent pain. Offers no other complaints. Objective Vital Signs: Last Vital Signs Documentation Date Time Temp Pulse Resp B/P (MAP) Pulse Ox O2 Delivery O2 Flow Rate FiO2 10/26/17 08:00 Room Air 10/26/17 07:30 36.6 58 16 124/63 (83) 95 Physical Exam: She is noted be lying in supine position upon entering the room and not any pain or distress. Laboratory Laboratory Findings 10/25/17 06:[address]: enhanced CT Findings IMPRESSION: 1. No bowel obstruction. 2. Moderate increase in size of a 7.4 x 6.3 cm right adnexal lesion. This measures water attenuation and therefore may reflect a cyst however is abnormal in a postmenopausal patient. A follow-up pelvic ultrasound to assess for complexity is recommended. 3. Possible 1.6 cm hypodense pancreatic neck lesion. This could reflect a side branch IPMN. A nonemergent pancreatic protocol CT is recommended. 4. Redemonstration of a T7 compression fracture with interval increase in vertebral body height loss since CT of October 08, 2017. This fracture is likely acute to subacute. Electronically signed by: Dusty Meyer M.D. 10/15/2017 9:22 PM Dictated Date/Time: 10/15/2017 8:59 PM Assessment 1. Thoracic radicular pain. 2. T7 vertebral fracture. 3. Possible pancreatic neck mass on CT of the abdomen this admission. 4. Poor efficacy from opioids. Experiences side effects of being lethargic and sleepy. Recommendations 1. At this point, I would not recommend any further interventional therapies. 2. As patient experiencing sleepiness from the opioids but not any improvement benefit from higher dosages, would not recommend escalating opioids at the present time. 3. Consider increasing dosage of the pregabalin. 5. Recommend further evaluation of pancreatic neck mass finding incidentally on the abdominal CT, especially as the patient is experiencing right upper quadrant pain as well as thoracic spine area pain which can be referred from pancreatic etiology. Will defer this to the hospitalist service to pursue. 6. Recommendations were discussed with Erasmo Roy over the telephone.
[2017-10-26 14:54] VITALS: BP 120/70; PULSE 66; TEMP 36.7; O2SAT 95
[2017-10-26] MEDS: POLYETHYLENE (MIRALAX) 17 GM PACK PO SCH (20:00)
[2017-10-26 22:03] VITALS: BP 129/77; PULSE 68; O2SAT 95
[2017-10-26] MEDS: ATORVASTATIN 20 MG TAB PO SCH (22:07)
[2017-10-26 22:45] VITALS: BP 101/63; PULSE 93; TEMP 36.8; O2SAT 97
[2017-10-27] MEDS: HYDROmorphone HCL 2 MG TAB PO PRN ×5 (03:37→20:56)
[2017-10-27] MEDS: LORAZEPAM 0.5 MG TAB PO PRN ×3 (03:39→20:55)
[2017-10-27] MEDS: ACETAMINOPHEN 325 MG TAB PO PRN (06:16)
[2017-10-27 06:46] VITALS: BP 101/65; PULSE 68; TEMP 36.9; O2SAT 97
--- NOTE | 2017-10-27 07:07 | Nephrology Progress Note ---
Nephrology Progress Note Date of Service: Oct 27, 2017. Subjective 81 yo female with hyponatremia in the setting of pain. has improved with fluid restriction and diuretics. sodium up to 130 yesterday. pt continues to be in pain but managed to do physical therapy and was able to write out connor cards yesterday although was exhausting. Objective Date Time Temp Pulse Resp B/P (MAP) Pulse Ox O2 Delivery O2 Flow Rate FiO2 10/27/17 06:46 36.9 68 19 101/65 (77) 97 Room Air 10/26/17 23:32 Room Air 10/26/17 22:45 36.8 93 18 101/63 (76) 97 Room Air 10/26/17 22:03 68 129/77 (94) 95 Room Air 10/26/17 16:00 Room Air 10/26/17 14:54 36.7 66 16 120/70 (87) 95 Room Air 10/26/17 08:00 Room Air 10/26/17 07:30 36.6 58 16 124/63 (83) 95 Room Air Physical Exam: General-aaox3 Eyes-no scleral icterus ENT-mmm Neck-supple Lungs-clear Heart-regular Abdomen-bs+ s/nt/nd Extremities-no c/c/e Neuro-neuropathy/wheelchair bound Current Inpatient Medications Medications (Trade) Dose Ordered Sig/[place] Route Start Time Stop Time Status Last Admin Dose Admin Acetaminophen (Tylenol Tab) 650 mg Q4H PRN PO 10/15/17 22:00 11/14/17 21:59 10/27/17 06:16 650 MG Al Hydrox/Mg Hydrox/Simethicone (Maalox Max Susp) 15 ml Q4H PRN PO 10/15/17 22:00 11/14/17 21:59 10/22/17 23:31 15 ML Magnesium Hydroxide (Milk Of Magnesia Susp) 30 ml Q6H PRN PO 10/15/17 22:00 11/14/17 21:59 Polyethylene (Miralax Powder Packet) 17 gm DAILY PRN PO 10/15/17 22:00 11/14/17 21:59 10/21/17 10:09 17 GM Ondansetron HCl (Zofran Inj) 4 mg Q6H PRN IV 10/15/17 22:00 11/14/17 21:59 10/26/17 08:31 4 MG Heparin Sodium (Porcine) (Heparin Sq 5000 Unit/0.5ml) 5,000 unit Q12H SQ 10/16/17 06:00 11/15/17 05:59 Future Hold 10/23/17 06:08 5,000 UNIT Atorvastatin Calcium (Lipitor Tab) 20 mg HS PO 10/16/17 21:00 11/15/17 20:59 10/26/17 22:07 20 MG Calcitriol (Rocaltrol Cap) 0.25 mcg QAM PO 10/16/17 09:00 11/15/17 08:59 10/26/17 09:30 0.25 MCG Ethacrynic Acid (Edecrin Tab) 100 mg QAM PO 10/16/17 09:00 11/15/17 08:59 Future hold 10/26/17 09:30 100 MG Leucovorin Calcium (Leucovorin Calcium Tab) 5 mg DAILY PO 10/16/17 09:00 11/15/17 08:59 10/26/17 09:29 5 MG Loratadine (Claritin Tab) 10 mg QAM PO 10/16/17 09:00 11/15/17 08:59 10/26/17 09:27 10 MG Methimazole (Methimazole Tab) 2.5 mg QAM PO 10/16/17 09:00 11/15/17 08:59 10/26/17 09:30 2.5 MG Metoprolol Tartrate (Lopressor Tab) 12.5 mg BID PO 10/16/17 09:00 11/15/17 08:59 10/26/17 22:08 12.5 MG Prednisone (PredniSONE TAB) 5 mg QAM PO 10/16/17 09:00 11/15/17 08:59 10/26/17 09:27 5 MG Miscellaneous Information (Order Awaiting Action) 1 ea QS N/A 10/16/17 08:00 11/15/17 07:59 Miscellaneous Information (Order Awaiting Action) 1 ea QS N/A 10/16/17 08:00 11/15/17 07:59 Magnesium Oxide (Mag-Ox Tab) 400 mg QAM PO 10/16/17 09:00 11/15/17 08:59 10/26/17 09:29 400 MG Fluticasone Propionate (Flonase Nasal [place]) 2 sprays DAILY ROBIN 10/16/17 09:00 11/15/17 08:59 10/26/17 09:27 2 SPRAYS Polyethylene (Miralax Powder Packet) 17 gm DAILY@1999 PO 10/16/17 20:00 11/15/17 19:59 10/23/17 08:51 17 GM Miscellaneous (Iv Fluids Completed) 1 ea PRN PRN N/A 10/15/17 22:45 10/15/18 22:44 Lactobacillus Acidophilus (Floranex Tab) 4 tab BID PO 10/16/17 21:00 11/15/17 20:59 10/26/17 22:07 4 TAB Cholecalciferol (Vitamin D Tab) 3,000 inter.unit QAM PO 10/17/17 09:00 11/16/17 08:59 10/26/17 09:28 3,000 INTER.UNIT Lidocaine (Lidoderm Patch 5%) 1 patch QAM TD 10/17/17 09:00 11/16/17 08:59 10/26/17 09:31 1 PATCH Miscellaneous (Remove Lidoderm Patch) 1 ea DAILY@21 N/A 10/17/17 21:00 11/16/17 20:59 10/26/17 21:00 1 EA Psyllium Hydrophilic Mucilloid (Metamucil Powder) 1 pkt BID PO 10/17/17 21:00 11/16/17 20:59 Docusate Sodium (coLACE CAP) 100 mg BID PO 10/17/17 21:00 11/16/17 20:59 10/26/17 22:06 100 MG Lorazepam (Ativan Tab) 0.5 mg Q6 PRN PO 10/23/17 11:45 11/17/17 08:44 10/27/17 03:39 0.5 MG Pregabalin (Lyrica Cap) 75 mg BID PO 10/24/17 21:00 11/23/17 20:59 10/26/17 22:07 75 MG Hydromorphone HCl (Dilaudid Tab) 2 mg Q4H PRN PO 10/25/17 15:30 11/08/17 15:29 10/27/17 03:37 2 MG Last 24 Hours Test 10/26/17 08:29 10/27/17 04:44 Sodium Level 132 mmol/L Potassium Level 3.9 mmol/L Chloride Level 96 mmol/L Carbon Dioxide Level 29 mmol/L Anion Gap 7.0 mmol/L Blood Urea Nitrogen 32 mg/dl Creatinine 1.11 mg/dl Est Creatinine Clear Calc Drug Dose 38.8 ml/min Estimated GFR () 53.9 Estimated GFR (Non- 46.5 BUN/Creatinine Ratio 28.7 Random Glucose 88 mg/dl Calcium Level 9.1 mg/dl Assessment & Plan hyponatremia-sodium up to 132 yesterday. today's labs are pending. continue fluid restriction and demadex. creatinine relatively stable throughout the hospitilization. volume status appears euvolemic.
--- NOTE | 2017-10-27 08:30 | Progress Note ---
Subjective Date of Service: Oct 26, 2017. Subjective Pt evaluation today including: conversation w/ patient, physical exam, chart review, lab review, review of studies, review of inpatient medication list Pt in moderate distress States still cant get up to eat Feels very defeated and unmotivated States dilaudid is the only thing that helps Nerve block with no relief Problem List Medical Problems: (1) Abdominal pain Status: Acute (2) Back pain Status: Acute (3) Hypotension Status: Acute (4) Ischemic colitis Status: Acute (5) Rectal bleed Status: Acute (6) Rib pain Status: Acute Review of Systems Constitutional: No see HPI, No fever, No chills, No sweats, No weight loss, No weakness, No fatigue, No problem reported ENT: No see HPI, No hearing loss, No unusual epistaxis, No nasal symptoms, No sore throat, No tinnitus, No dental problems, No trouble swallowing, No problem reported Respiratory: No see HPI, No cough, No sputum, No wheezing, No shortness of breath, No dyspnea on exertion, No dyspnea at rest, No hemoptysis, No problem reported Cardiac: No see HPI, No chest pain, No orthopnea, No PND, No edema, No claudication, No palpitations, No problem reported Abdomen: + pain, No see HPI, No nausea, No vomiting, No diarrhea, No constipation, No GI bleeding, No problem reported Musculoskeletal: + joint pain, + muscle pain, No see HPI, No swelling, No calf pain, No problem reported Female : No see HPI, No dysuria, No urinary frequency, No hematuria, No incontinence, No abnormal vaginal bleeding, No vaginal discharge, No problem reported Neurologic: No see HPI, No memory loss, No paralysis, No weakness, No numbness/ tingling, No vertigo, No balance problems, No problem reported Psychiatric: + depression symptoms, + anxiety, No see HPI, No anhedonism, No insomnia, No substance abuse, No problem reported Heme: No see HPI, No abnormal bleeding/bruising, No clotting problems, No swollen lymph nodes, No night sweats, No problem reported Skin: No see HPI, No rash, No itch, No new/changing skin lesions, No color change, No bleeding, No problem reported Objective Vital Signs Date Time Temp Pulse Resp B/P (MAP) Pulse Ox O2 Delivery O2 Flow Rate FiO2 10/26/17 16:00 Room Air 10/26/17 14:54 36.7 66 16 120/70 (87) 95 Room Air 10/26/17 08:00 Room Air 10/26/17 07:30 36.6 58 16 124/63 (83) 95 Room Air 10/25/17 23:30 Room Air 10/25/17 22:45 36.7 58 18 103/62 (76) 97 Room Air Physical Exam General Appearance: WD/WN, + moderate distress Eyes: normal inspection, PERRL, EOMI, sclerae normal Neck: supple, no adenopathy, thyroid normal, no JVD Respiratory/Chest: chest non-tender, lungs clear, normal breath sounds, no respiratory distress Cardiovascular: regular rate, rhythm, no edema, no gallop, no JVD Abdomen: normal bowel sounds, soft, no organomegaly, + tenderness Neurologic/Psychiatric: no motor/sensory deficits, alert, oriented x 3, + depressed affect Skin: normal color, warm/dry, no rash Lymphatic: no adenopathy Laboratory Results Last 24 Hours Test 10/26/17 08:29 Sodium Level 132 mmol/L Potassium Level 3.9 mmol/L Chloride Level 96 mmol/L Carbon Dioxide Level 29 mmol/L Anion Gap 7.0 mmol/L Blood Urea Nitrogen 32 mg/dl Creatinine 1.11 mg/dl Est Creatinine Clear Calc Drug Dose 38.8 ml/min Estimated GFR () 53.9 Estimated GFR (Non- 46.5 BUN/Creatinine Ratio 28.7 Random Glucose 88 mg/dl Calcium Level 9.1 mg/dl Assessment and Plan This patient is an 81-year-old female with a history of SLE, scleroderma, polymyositis on chronic prednisone, severe osteoporosis with multiple fractures , CKD stage III, gastroparesis, history of 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 T7 compression fracture/intercostal neuralgia/thoracic radiculitis-was overly sedated when on Nucynta, became hyponatremic with Cymbalta. Her home dose of gabapentin was increased upon admission, and she may have some relief with the Lidoderm patch and by mouth Dilaudid at least of the compression fracture pain. CT abd/pelvis unremarkable, hx of ischemic colitis, cdiff, but there is no suspicion of those at this time. MRI thoracic spine confirms T7 acute to subacute compression fracture as well as neural foraminal stenosis T11-12 Orthopedics and Orthopedic spine consulted Pain management consulted-intercostal nerve block completed 10/25 with no relief per pt -Continue Lidoderm patch, attempt to taper dilaudid as OP -Will continue trial of Lyrica and discontinued gabapentin to see if helps with pain and has less side effects Continue Ativan 0.5 mg when necessary for anxiety and/or muscle spasm Pt will follow up with Dr Loaiza as an OP, seeking placement at this time [id number] and severe, with history of multiple pathological fractures. Has been on bisphosphonates, calcitonin, Forteo in the past. -Currently on Prolia -Continue calcitriol and cholecalciferol Chronic diastolic CHF/HL/HTN/CAD-No signs of exacerbation of CHF, BPs acceptable -cont home meds of atorvastatin, metoprolol -Holding lisinopril right now for renal insufficiency Acute on chronic kidney disease stage 3/hyponatremia-creatinine around her baseline at 1.35. Cymbalta can cause SIADH, but patient reports this has happened to her in the past. -continue to hold lisinopril, -Consult nephrology for further recommendations, ?element of SIADH, improvement with fluid restriction and demadex -Discontinued Cymbalta -Follow PRP -Avoid nephrotoxins -Renally dose medications Neuropathy-stable, present bilateral lower extremities and right arm -Neurontin switched to Lyrica Hyperthyroidism: TSH recently normal -Continue Methimazole 250Mg PO qAM Chronic Malabsorption status post gastrectomy -Continue Vit D, Mag, calcium, B12 supplements Right adnexal lesion-measuring 7.4 x [address] scan. Patient reports she is followed routinely by gynecology every 3 months for this Pancreatic neck lesion-1.[address] Gastroenterology has seen the patient and is recommending both EGD and EUS as an outpatient next week -Will need follow-up scheduled with [facility] DVT Prophylaxis: Heparin 5000U BID Pt is DNR code status
[2017-10-27] MEDS: PREGABALIN 75 MG CAP PO SCH (08:44)
[2017-10-27] MEDS: LIDODERM (LIDOCAINE) PATCH 5% TD SCH (08:45)
[2017-10-27] MEDS: LACTOBACILLUS ACIDOPHILUS (FLORANEX) TAB PO SCH ×2 (08:45→21:00)
[2017-10-27] MEDS: FLUTICASONE PROPIONATE NA SPR 16 GM BTL NAE SCH (08:45)
[2017-10-27] MEDS: CALCITRIOL 0.25 MCG CAP PO SCH (08:45)
[2017-10-27] MEDS: CHOLECALCIFEROL 1000 INTER.UNIT TAB PO SCH (08:45)
[2017-10-27] MEDS: ETHACRYNIC ACID 25 MG TAB PO SCH (08:46)
[2017-10-27] MEDS: LEUCOVORIN CALCIUM 5 MG TAB PO SCH (08:46)
[2017-10-27] MEDS: METHIMAZOLE 5 MG TAB PO SCH (08:46)
[2017-10-27] MEDS: MAGNESIUM OXIDE 400 MG TAB PO SCH (08:47)
[2017-10-27] MEDS: DOCUSATE SODIUM 100 MG CAP PO SCH ×2 (08:47→18:10)
[2017-10-27] MEDS: LORATADINE 10 MG TAB PO SCH (08:47)
[2017-10-27] MEDS: METOPROLOL TARTRATE 25 MG TAB PO SCH ×2 (08:47→20:59)
[2017-10-27] MEDS: PSYLLIUM 58.6% PWD PACK S\\F PO SCH ×2 (08:48→20:51)
[2017-10-27] MEDS: ONDANSETRON INJ 2 MG/ML 2 ML VIAL IV PRN (08:51)
--- NOTE | 2017-10-27 09:11 | Pain Clinic Return Visit ---
Pain Clinic Return Visit Date of Service Oct 27, 2017. Reason For Visit Left 6,7,8 intercostal nerve blocks Subjective 81-year-old female with left-sided chest wall pain wrapping around from her mid axillary line to her sternal border around T7 dermatome while hanging Jordana decorations prior to admission. She continues to report that pain is burning, radiating, and electric in character as well as stabbing at times creating difficulty with coughing but not with deep breathing. She notes that her pain ranges between 0 and 8 out of 10. She did have a left 6, 7, 8 intercostal nerve blocks yesterday without benefit per the patient. However to me on exam she appears to be comfortable, much more so than when I saw her last week. She appeared to be moving fairly easily in bed and did not wince once during our interview. She understands that making her pain tolerable, not pain free, is the goal of pain management. Nursing reports that the patient was able to write Jordana cards and appeared to be relatively comfortable. program services planner has been working with her in regards to placement in the near future. Home Medications Scheduled , 10 MG PO QID Atorvastatin (Lipitor), 20 MG PO HS Biotin (Biotin), 1,000 MCG PO QAM Calcitriol (Rocaltrol Cap), 0.25 MCG PO QAM Cholecalciferol (Vitamin D3), 3,000 UNIT PO DAILY Cyanocobalamin (Cyanocobalamin), 1 DOSE INJ MONTHLY Denosumab (Prolia), 60 MG INJ UD Ethacrynic Acid (Edecrin), 100 MG PO QAM Fluocinolone Acetonide (Otic) (Fluocinolone Acetonide), 5 DROPS OTL DAILY Gabapentin (Neurontin), 100 MG PO BID Gabapentin (Neurontin), 200 MG PO HS Leucovorin Calcium (Leucovorin Calcium), 5 MG PO DAILY Lisinopril (Lisinopril), 10 MG PO HS Loratadine (Claritin), 10 MG PO QAM Magnesium Oxide (Magnesium), 250 MG PO QAM Methimazole (Methimazole ), 2.5 MG PO QAM Metoprolol Tartrate (Lopressor) (Lopressor), 12.5 MG PO BID Mometasone Furoate (Nasal) (Mometasone Furoate), 1 SPRAY ROBIN DAILY Multiple Vitamins W/ Minerals (Preservision Areds 2), 1 CAP PO BID Peg [id number] Bicarb-Sod Ch (Golytely), 1-3 DOSE PO QPM Prednisone (Prednisone), 5 MG PO QAM Scheduled PRN Acetaminophen (Tylenol), 500 MG PO UD PRN for Pain Tramadol (Ultram), 50 MG PO HS PRN for Pain Allergies Coded Allergies: Adhesives (Verified Allergy, Severe, BLISTERING, 10/15/17) PAPER TAPE CAUSES SEVERE BLISTERING Cefuroxime (Verified Allergy, Unknown, INEFFECTIVE, 10/15/17) Ciprofloxacin (Verified Allergy, Unknown, INEFFECTIVE, 10/15/17) Erythromycin (Verified Allergy, Unknown, SEVERE VOMITING, 10/15/17) Furosemide (Verified Allergy, Unknown, HIVES, SULFA ALLERGY TO LOOP DIURETICS, 10/15/17) Hydrochlorothiazide (Verified Allergy, Unknown, HIVES, 10/15/17) Levofloxacin (Verified Allergy, Unknown, INEFFECTIVE, 10/15/17) Metoclopramide (Verified Allergy, Unknown, anxiety attacks, 10/15/17) Sulfa Antibiotics (Verified Allergy, Unknown, HIVES AND ANAPHYLAXIS, ) Metronidazole (Verified Adverse Reaction, Severe, Neuropathy, 10/15/17) Meperidine (Verified Adverse Reaction, Unknown, INEFFECTIVE FOR PT, ) INAFFECTIVE FOR PATIENT Uncoded Allergies: all diuretics (Allergy, Severe, throat swells, 06/10/17) Medications & Allergies Reconciled: Yes Review of Systems 10 point review of systems was otherwise negative aside from HPI Objective Date Time Temp Pulse Resp B/P (MAP) Pulse Ox O2 Delivery O2 Flow Rate FiO2 10/27/17 08:27 Room Air 10/27/17 06:46 36.9 68 19 101/65 (77) 97 Room Air 10/26/17 23:32 Room Air 10/26/17 22:45 36.8 93 18 101/63 (76) 97 Room Air 10/26/17 22:03 68 129/77 (94) 95 Room Air 10/26/17 16:00 Room Air 10/26/17 14:54 36.7 66 16 120/70 (87) 95 Room Air Height 5 feet, 2.00 inches. Weight 79.300 (Kilograms) 174 (Pounds) Physical Exam GENERAL: 81-year-old female who is awake, alert and oriented. Appears well developed. she appears comfortable on examination PSYCHIATRIC: Demonstrates normal and clear sensorium. Short-term and long- term memory is intact. HEAD AND NECK: No obvious trauma. Demonstrates full range of motion of the cervical spine. EARS, EYES AND NOSE: Mucous membranes pink and moist. No mucosal lesions noted. Tongue midline. LUNGS: No audible wheezing or rhonchi. Normal chest excursion. There is no rash noted in a dermatomal fashion in the thoracic region or anterior chest wall. There is no allodynia or hyperpathia noted over her left chest wall. CARDIAC: Regular rate and rhythm NEUROLOGICAL: Cranial nerves II through XII grossly intact. No gross sensory or motor deficits noted in the upper extremity. Sensation and motor strength in the lower extremity are symmetrical without deficit. Gait is not observed Laboratory Laboratory Findings Test 08/03/17 14:07 08/16/17 12:39 10/08/17 13:04 10/08/17 13:10 Range/Units Iron Level 64 35-150 mcg/dl Total Iron Binding Capacity 313 250-450 mcg/dl Transferrin 259 200-360 mg/dl Transferrin % Saturation 18 15-50 % Vitamin B12 Level 432 211-911 pg/mL Thyroid Stimulating Hormone (TSH) 0.798 0.300-4.500 uIu/ml Free Thyroxine 1.13 0.80-1.60 ng/dl CA 125 Antigen 11 <35 U/ML Direct Bilirubin 0.2 0-0.2 mg/dl Lipase 224 73-393 U/L D-Dimer 360 0-500 ug/L FEU Test 10/15/17 18:18 10/15/17 18:36 10/16/17 11:22 10/16/17 12:14 Range/Units Urine Color YELLOW Urine Appearance CLEAR CLEAR Urine pH 7.0 4.5-7.5 Urine Specific [place] 1.010 1.000-1.030 Urine Protein NEG NEG Urine Glucose (UA) NEG NEG Urine Ketones NEG NEG Urine Occult Blood NEG NEG Urine Nitrite NEG NEG Urine Bilirubin NEG NEG Urine Urobilinogen NEG NEG Urine Leukocyte Esterase TRACE H NEG Urine WBC (Auto) 1-5 0-5 /hpf Urine RBC (Auto) 0-4 0-4 /hpf Urine Hyaline Casts (Auto) 0 0-5 /lpf Urine Epithelial Cells (Auto) 10-20 H 0-5 /lpf Urine Bacteria (Auto) NEG NEG Red Blood Cell Morphology Unremarkable Prothrombin Time 10.5 9.0-12.0 SECONDS Prothrombin Time INR 1.0 0.9-1.1 PTT 25.2 21.0-31.0 SECONDS Partial Thromboplastin Ratio 1.0 Magnesium Level 2.4 1.8-2.4 mg/dl Total Bilirubin 0.6 0.2-1 mg/dl Aspartate Amino Transferase (AST) 22 15-37 U/L Alanine Aminotransferase (ALT) 24 12-78 U/L Alkaline Phosphatase 72 45-117 U/L Troponin I < 0.015 0-0.045 ng/ml Total Protein 6.8 6.4-8.2 gm/dl Albumin 3.5 3.4-5.0 gm/dl Globulin 3.3 2.5-4.0 gm/dl Albumin/Globulin Ratio 1.1 0.9-2 Lactic Acid Level 1.5 0.4-2.0 mmol/L 25-Hydroxy Vitamin D Total 19.0 L 30-100 ng/ml Test 10/24/17 07:37 10/24/17 21:25 10/25/17 06:26 10/26/17 08:29 Range/Units Immature Granulocyte % (Auto) 2.7 % White Blood Count 7.29 10.06 4.8-10.8 K/uL Red Blood Count 3.75 L 3.60 L 4.2-5.4 M/uL Hemoglobin 11.9 L 11.4 L 12.0-16.0 g/dL Hematocrit 34.7 L 33.2 L 37-47 % Mean Corpuscular Volume 92.5 92.2 80-100 fL Mean Corpuscular Hemoglobin 31.7 31.7 25-34 pg Mean Corpuscular Hemoglobin Concent 34.3 34.3 32-36 g/dl Platelet Count 224 201 130-400 K/uL Mean Platelet Volume 8.8 9.0 7.4-10.4 fL Neutrophils (%) (Auto) 59.6 % Lymphocytes (%) (Auto) 26.5 % Monocytes (%) (Auto) 8.9 % Eosinophils (%) (Auto) 1.9 % Basophils (%) (Auto) 0.4 % Neutrophils # (Auto) 4.34 1.4-6.5 K/uL Lymphocytes # (Auto) 1.93 1.2-3.4 K/uL Monocytes # (Auto) 0.65 H 0.11-0.59 K/uL Eosinophils # (Auto) 0.14 0-0.5 K/uL Basophils # (Auto) 0.03 0-0.2 K/uL Immature Granulocyte # (Auto) 0.20 H 0.00-0.02 K/uL Urine Osmolality 158 L 500-800 mOms/kg Urine Random Sodium 16 mEq/L RDW Standard Deviation 48.8 H 36.4-46.3 fL RDW Coefficient of Variation 14.4 11.5-14.5 % Osmolality 273 L 280-300 mOsm/kg Est Creatinine Clear Calc Drug Dose 38.8 ml/min Test 10/27/17 08:19 Range/Units Sodium Level Pending Potassium Level Pending Chloride Level Pending Carbon Dioxide Level Pending Anion Gap Pending Blood Urea Nitrogen Pending Creatinine Pending Estimated GFR () Pending Estimated GFR (Non- Pending BUN/Creatinine Ratio Pending Random Glucose Pending Calcium Level Pending Assessment 1. Left-sided approximately T7 intercostal neuralgia 2. Peripheral neuropathy now wheelchair bound 3. Renal insufficiency 4. Anxiety Recommendations 1. Recommend continuation of Lyrica, Lidoderm patch, and hydromorphone at current dosing 2. Recommend continuation of bowel regimen. 3. Zofran was switched from IV to ODT tablets 4. Would defer any further interventional pain injections due to failure to achieve relief with intercostal nerve blocks performed yesterday 5. Consider restart of Cymbalta if pain persists. 6. The patient appears comfortable on exam and was able to write [place] cards yesterday. I have nothing further to offer from a pain standpoint and she appears to be ready for placement at this time. Recommend social media marketing manager continue to be involved with her care. 7. She may follow-up with her primary care physician for further care as I have nothing additional to offer her in the pain management Center.
[2017-10-27 09:41] LABS: BUN/CREATININE RATIO 31.6 (10-20); CALCIUM 9.2 mg/dl (8.5-10.1); CREATININE 1.14 mg/dl (0.60-1.20); POTASSIUM 3.6 mmol/L (3.5-5.1)
[2017-10-27] MEDS: HEPARIN SOD 5000 UNIT/0.5 ML CARP SQ SCH ×2 (13:47→21:06)
[2017-10-27 15:49] VITALS: BP 98/61; PULSE 66; TEMP 36.8; O2SAT 94
--- NOTE | 2017-10-27 15:56 | Hospitalist Progress Note ---
Hospitalist Progress Note Date of Service Oct 27, 2017. Subjective Pt evaluation today including: conversation w/ patient Pt remains with 6/10 pain at rest and goes to 10/10 pain in left rib cage with any movement. Cannot sit for more than a few minutes. Insurance denied SNF stay today as she is unassisted with her PT/OT evals despite her severe pain with sitting and need for sitting in a wheelchair. Pt plans to do an appeal All Other Systems: Reviewed and Negative Objective Vital Signs Date Time Temp Pulse Resp B/P (MAP) Pulse Ox O2 Delivery O2 Flow Rate FiO2 10/27/17 08:27 Room Air 10/27/17 06:46 36.9 68 19 101/65 (77) 97 Room Air 10/26/17 23:32 Room Air 10/26/17 22:45 36.8 93 18 101/63 (76) 97 Room Air 10/26/17 22:03 68 129/77 (94) 95 Room Air 10/26/17 16:00 Room Air Physical Exam General Appearance: WD/WN, no apparent distress (lying flat in bed) Eyes: normal inspection, sclerae normal ENT: hearing grossly normal Neck: trachea midline Respiratory/Chest: lungs clear, normal breath sounds, no respiratory distress, no accessory muscle use Cardiovascular: regular rate, rhythm, no edema, no gallop, + systolic murmur (2 /6 at left sternal border) Abdomen: normal bowel sounds, non tender, soft Extremities: normal inspection, no pedal edema, no calf tenderness Neurologic/Psychiatric: alert, normal mood/affect, oriented x 3 Skin: normal color, warm/dry, no rash Laboratory Results Last 24 Hours Test 10/27/17 08:19 Sodium Level 132 mmol/L Potassium Level 3.6 mmol/L Chloride Level 96 mmol/L Carbon Dioxide Level 28 mmol/L Anion Gap 8.0 mmol/L Blood Urea Nitrogen 36 mg/dl Creatinine 1.14 mg/dl Est Creatinine Clear Calc Drug Dose 37.8 ml/min Estimated GFR () 52.2 Estimated GFR (Non- 45.1 BUN/Creatinine Ratio 31.6 Random Glucose 89 mg/dl Calcium Level 9.2 mg/dl Assessment and Plan This patient is an 81-year-old female with a history of SLE, scleroderma, polymyositis on chronic prednisone, severe osteoporosis with multiple fractures , CKD stage III, gastroparesis, history of 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 T7 compression fracture/intercostal neuralgia/thoracic radiculitis-was overly sedated when on Nucynta, became hyponatremic with Cymbalta, but Nephrology does not think it is from the Cymbalta. Her home dose of gabapentin was increased upon admission, and she may have some relief with the Lidoderm patch and by mouth Dilaudid at least of the compression fracture pain. Dc'd gabapentin in favor of Lyrica as it usually works faster and with less side effects than gabapentin. CT abd/pelvis unremarkable, hx of ischemic colitis, cdiff, but there is no suspicion of those at this time. MRI thoracic spine confirms T7 acute to subacute compression fracture as well as neural foraminal stenosis T11-12 Orthopedics and Orthopedic spine consulted Pain management consulted-intercostal nerve block completed 10/25 with no relief per pt -Continue Lidoderm patch, continue po dilaudid prn -Will continue trial of Lyrica and discontinued gabapentin to see if helps with pain and has less side effects--> increase Lyrica to 100mg po bid as max dose with her renal failure Continue Ativan 0.5 mg when necessary for anxiety and/or muscle spasm Pain Management says nothing else to offer her-no OP f/u needed -denied stay at SNF by Insurance--> pt plans to appeal and will likely stay here to here for result [id number] and severe, with history of multiple pathological fractures. Has been on bisphosphonates, calcitonin, Forteo in the past. -Currently on Prolia -Continue calcitriol and cholecalciferol Chronic diastolic CHF/HL/HTN/CAD-No signs of exacerbation of CHF, BPs acceptable -cont home meds of atorvastatin, metoprolol -Holding lisinopril right now for renal insufficiency, can restart on discharge Acute on chronic kidney disease stage 3/hyponatremia-creatinine lower than her baseline at 1.14 but has been off her lisinopril. Na+ as low as 125, now up to 132 with fluid restriction. Nephrology thinks she was drinking too much. Cymbalta can cause SIADH, but Nephrology does not think she has SIADH; however she is being treated with fluid restriction and continuation of her ethacrynic acid -continue to hold lisinopril -Consult nephrology appreciated -ok to restart Cymbalta as above -continue Demadex -Follow PRP -Avoid nephrotoxins -Renally dose medications Neuropathy-stable, present bilateral lower extremities and right arm -Neurontin switched to Lyrica as above Hyperthyroidism: TSH recently normal -Continue Methimazole 250Mg PO qAM Chronic Malabsorption status post gastrectomy -Continue Vit D, Mag, calcium, B12 supplements Right adnexal lesion-measuring 7.4 x 6.[address] scan. Patient reports she is followed routinely by gynecology every 3 months for this Pancreatic neck lesion-1.[address] Gastroenterology has seen the patient and is recommending both EGD and EUS as an outpatient next week -Will need follow-up scheduled with [facility] as outpt DVT Prophylaxis: Heparin 5000U q8h Dispo-appealing SNF denial to health insurance--awaiting appeal decision Pt is DNR code status
[2017-10-27] MEDS ORDERED: DULOXETINE (CYMBALTA) 30 MG CAP PO ONE (16:15)
[2017-10-27] MEDS: ALUMINUM/MAGNESIUM/SIMETH (MAALOX MAX) 30 ML UDC PO PRN (16:46)
[2017-10-27] MEDS: POLYETHYLENE (MIRALAX) 17 GM PACK PO SCH (18:10)
[2017-10-27] MEDS: PREGABALIN 100 MG CAP PO SCH (20:56)
[2017-10-27] MEDS: ATORVASTATIN 20 MG TAB PO SCH (20:56)
[2017-10-27] MEDS ORDERED: PREGABALIN 150 MG CAP PO SCH (21:00)
[2017-10-27 21:09] VITALS: BP 128/63; PULSE 63
[2017-10-27 22:47] VITALS: BP 127/73; PULSE 61; TEMP 36.8; O2SAT 96
[2017-10-28] MEDS: HEPARIN SOD 5000 UNIT/0.5 ML CARP SQ SCH ×3 (05:41→22:34)
[2017-10-28] MEDS: HYDROmorphone HCL 2 MG TAB PO PRN ×4 (05:43→18:52)
[2017-10-28 06:35] LABS: BASO % 0.4 %; BASO ABS # 0.04 K/uL (0-0.2); COMPLETE YES; EOS % 1.3 %; HEMATOCRIT 34.5 % (37-47); IG% 2.5 %; LYMPH % 25.5 %; LYMPH ABS # 2.52 K/uL (1.2-3.4); MEAN CELL VOLUME 93.5 fL (80-100); MEAN CORPUSCULAR HEMOGLOBIN 31.2 pg (25-34); MEAN CORPUSCULAR HGB CONC 33.3 g/dl (32-36); MEAN PLATELET VOLUME 9.5 fL (7.4-10.4); MONO % 9.1 %; NEUT % 61.2 %; PLATELET COUNT 249 K/uL (130-400); RED BLOOD COUNT 3.69 M/uL (4.2-5.4)
[2017-10-28 06:45] VITALS: BP 102/61; PULSE 55; TEMP 36.6; O2SAT 95
[2017-10-28 07:12] LABS: BUN/CREATININE RATIO 29.9 (10-20); CALCIUM 8.8 mg/dl (8.5-10.1); CREATININE 1.27 mg/dl (0.60-1.20); POTASSIUM 3.7 mmol/L (3.5-5.1)
[2017-10-28] MEDS: ONDANSETRON 4MG OD TAB PO PRN (08:32)
[2017-10-28] MEDS: PSYLLIUM 58.6% PWD PACK S\\F PO SCH ×2 (09:00→20:51)
[2017-10-28] MEDS: FLUTICASONE PROPIONATE NA SPR 16 GM BTL NAE SCH (10:14)
[2017-10-28] MEDS: LORAZEPAM 0.5 MG TAB PO PRN ×2 (10:15→18:57)
[2017-10-28] MEDS: LACTOBACILLUS ACIDOPHILUS (FLORANEX) TAB PO SCH ×2 (10:16→20:50)
[2017-10-28] MEDS: CALCITRIOL 0.25 MCG CAP PO SCH (10:16)
[2017-10-28] MEDS: DOCUSATE SODIUM 100 MG CAP PO SCH ×2 (10:16→20:49)
[2017-10-28] MEDS: CHOLECALCIFEROL 1000 INTER.UNIT TAB PO SCH (10:16)
[2017-10-28] MEDS: MAGNESIUM OXIDE 400 MG TAB PO SCH (10:16)
[2017-10-28] MEDS: METHIMAZOLE 5 MG TAB PO SCH (10:17)
[2017-10-28] MEDS: LEUCOVORIN CALCIUM 5 MG TAB PO SCH (10:17)
[2017-10-28] MEDS: LORATADINE 10 MG TAB PO SCH (10:17)
[2017-10-28] MEDS: ETHACRYNIC ACID 25 MG TAB PO SCH (10:17)
[2017-10-28] MEDS: LIDODERM (LIDOCAINE) PATCH 5% TD SCH (10:18)
[2017-10-28] MEDS: METOPROLOL TARTRATE 25 MG TAB PO SCH ×2 (10:18→20:50)
[2017-10-28] MEDS: DULOXETINE (CYMBALTA) 30 MG CAP PO SCH (10:26)
[2017-10-28] MEDS: PREGABALIN 100 MG CAP PO SCH ×2 (10:26→20:50)
[2017-10-28] MEDS: POLYETHYLENE (MIRALAX) 17 GM PACK PO PRN (12:51)
[2017-10-28 14:53] VITALS: BP 115/63; PULSE 61; TEMP 36.6; O2SAT 94
--- NOTE | 2017-10-28 16:07 | Hospitalist Progress Note ---
Hospitalist Progress Note Date of Service Oct 28, 2017. Subjective Pt evaluation today including: conversation w/ patient Pt still with severe pain with sitting upright for more than 2 minutes. Her appeal for SNF was denied. She states the only way she can go home is if she can go home in a litter van, but has no money to pay for it. Very discouraged about her pain.Continues to be a burning pain radiating around the left lower rib cage, constant All Other Systems: Reviewed and Negative Objective Vital Signs Date Time Temp Pulse Resp B/P (MAP) Pulse Ox O2 Delivery O2 Flow Rate FiO2 10/28/17 14:53 36.6 61 16 115/63 (80) 94 Room Air 10/28/17 07:45 Room Air 10/28/17 06:45 36.6 55 16 102/61 (75) 95 Room Air 10/27/17 23:20 Room Air 10/27/17 22:47 36.8 61 18 127/73 (91) 96 Room Air 10/27/17 21:09 63 128/63 (84) Physical Exam General Appearance: no apparent distress (lying in bed, but able to sit up unassisted and sit with legs bent at the knee in front of her for 2 minutes) Eyes: normal inspection, sclerae normal ENT: hearing grossly normal Neck: trachea midline Respiratory/Chest: lungs clear, normal breath sounds, no respiratory distress, no accessory muscle use Cardiovascular: regular rate, rhythm, no edema, no gallop, + systolic murmur (2 /6 LSB) Abdomen: normal bowel sounds, non tender, soft, + pertinent finding (no TTP over entire spine exxcept minimal in mid thoracic region, no TTP over left rib cage at site of pain) Extremities: normal inspection, no pedal edema, no calf tenderness Neurologic/Psychiatric: alert, oriented x 3, + depressed affect Skin: normal color, warm/dry, no rash Laboratory Results Last 24 Hours Test 10/28/17 05:49 White Blood Count 9.90 K/uL Red Blood Count 3.69 M/uL Hemoglobin 11.5 g/dL Hematocrit 34.5 % Mean Corpuscular Volume 93.5 fL Mean Corpuscular Hemoglobin 31.2 pg Mean Corpuscular Hemoglobin Concent 33.3 g/dl Platelet Count 249 K/uL Mean Platelet Volume 9.5 fL Neutrophils (%) (Auto) 61.2 % Lymphocytes (%) (Auto) 25.5 % Monocytes (%) (Auto) 9.1 % Eosinophils (%) (Auto) 1.3 % Basophils (%) (Auto) 0.4 % Neutrophils # (Auto) 6.06 K/uL Lymphocytes # (Auto) 2.52 K/uL Monocytes # (Auto) 0.90 K/uL Eosinophils # (Auto) 0.13 K/uL Basophils # (Auto) 0.04 K/uL RDW Standard Deviation 49.0 fL RDW Coefficient of Variation 14.3 % Immature Granulocyte % (Auto) 2.5 % Immature Granulocyte # (Auto) 0.25 K/uL Sodium Level 131 mmol/L Potassium Level 3.7 mmol/L Chloride Level 93 mmol/L Carbon Dioxide Level 31 mmol/L Anion Gap 7.0 mmol/L Blood Urea Nitrogen 38 mg/dl Creatinine 1.27 mg/dl Est Creatinine Clear Calc Drug Dose 33.9 ml/min Estimated GFR () 45.8 Estimated GFR (Non- 39.5 BUN/Creatinine Ratio 29.9 Random Glucose 88 mg/dl Calcium Level 8.8 mg/dl Assessment and Plan This patient is an 81-year-old female with a history of SLE, scleroderma, polymyositis on chronic prednisone, severe osteoporosis with multiple fractures , CKD stage III, gastroparesis, history of 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 T7 compression fracture/intercostal neuralgia/thoracic radiculitis-was overly sedated when on Nucynta, became hyponatremic with Cymbalta, but Nephrology does not think it is from the Cymbalta. Her home dose of gabapentin was increased upon admission, and she may have some relief with the Lidoderm patch and by mouth Dilaudid at least of the compression fracture pain. Dc'd gabapentin in favor of Lyrica as it usually works faster and with less side effects than gabapentin. CT abd/pelvis unremarkable, hx of ischemic colitis, cdiff, but there is no suspicion of those at this time. MRI thoracic spine confirms T7 acute to subacute compression fracture as well as neural foraminal stenosis T11-12 Orthopedics and Orthopedic spine consulted Pain management consulted-intercostal nerve block completed 10/25 with no relief per pt-Pain Management has signed off, says there is nothing further for them to offer and to f/u with PCP -Continue Lidoderm patch, continue po dilaudid prn -Will continue trial of Lyrica and discontinued gabapentin to see if helps with pain and has less side effects--> increased Lyrica to 100mg po bid as max dose with her renal failure -Continue Ativan 0.5 mg when necessary for anxiety and/or muscle spasm -denied stay at SNF by Insurance--> pt appealed and that was denied--> she is now willing to go home in a litter van tomorrow if can be arranged as she cannot sit in a wheelchair for more than 2 minutes Edigsbngpqsz-mpas-slppiiiv and severe, with history of multiple pathological fractures. Has been on bisphosphonates, calcitonin, Forteo in the past. -Currently on Prolia -Continue calcitriol and cholecalciferol Chronic diastolic CHF/HL/HTN/CAD-No signs of exacerbation of CHF, BPs acceptable -cont home meds of atorvastatin, metoprolol -was holding lisinopril for renal insufficiency, can restart tonight but at lower dose of 5mg due to relatively low normal BPs Acute on chronic kidney disease stage 3/hyponatremia-creatinine lower than her baseline at 1.14 but has been off her lisinopril. Na+ as low as 125, now up to 131-132 with fluid restriction. Nephrology thinks she was drinking too much. Cymbalta can cause SIADH, but Nephrology does not think she has SIADH; however she is being treated with fluid restriction and continuation of her ethacrynic acid -restarting lisinopril this evening -Consult nephrology appreciated -ok to restart Cymbalta as above -continue Demadex -Follow PRP as outpt -Avoid nephrotoxins -Renally dose medications Neuropathy-stable, present bilateral lower extremities and right arm -Neurontin switched to Lyrica as above Hyperthyroidism: TSH recently normal -Continue Methimazole 250Mg PO qAM Chronic Malabsorption status post gastrectomy -Continue Vit D, Mag, calcium, B12 supplements Right adnexal lesion-measuring 7.4 x 6.[address] scan. Patient reports she is followed routinely by gynecology every 3 months for this Pancreatic neck lesion-1.[address] Gastroenterology has seen the patient and is recommending both EGD and EUS as an outpatient next week -Will need follow-up scheduled with [facility] as outpt next week DVT Prophylaxis: Heparin 5000U q8h Dispo-SNF denied, appeal denied Pt is DNR code status Dispo- to home tomorrow with litter van
[2017-10-28] MEDS: ATORVASTATIN 20 MG TAB PO SCH (20:48)
[2017-10-28] MEDS: POLYETHYLENE (MIRALAX) 17 GM PACK PO SCH (20:50)
[2017-10-28 20:55] VITALS: BP 126/75; PULSE 66
[2017-10-28] MEDS ORDERED: LISINOPRIL 5 MG TAB PO SCH (21:00)
[2017-10-28 22:40] VITALS: BP 113/72; PULSE 55; TEMP 36.6; O2SAT 94
[2017-10-29] MEDS: HYDROmorphone HCL 2 MG TAB PO PRN ×4 (00:16→12:59)
[2017-10-29] MEDS: HEPARIN SOD 5000 UNIT/0.5 ML CARP SQ SCH (06:25)
[2017-10-29] MEDS: ONDANSETRON 4MG OD TAB PO PRN (08:19)
[2017-10-29 08:24] VITALS: BP 112/67; PULSE 60; TEMP 36.7; O2SAT 95
[2017-10-29] MEDS: LORAZEPAM 0.5 MG TAB PO PRN (08:53)
[2017-10-29] MEDS: CALCITRIOL 0.25 MCG CAP PO SCH (08:55)
[2017-10-29] MEDS: FLUTICASONE PROPIONATE NA SPR 16 GM BTL NAE SCH (08:55)
[2017-10-29] MEDS: LORATADINE 10 MG TAB PO SCH (08:56)
[2017-10-29] MEDS: METHIMAZOLE 5 MG TAB PO SCH (08:56)
[2017-10-29] MEDS: DOCUSATE SODIUM 100 MG CAP PO SCH (08:56)
[2017-10-29] MEDS: METOPROLOL TARTRATE 25 MG TAB PO SCH (08:56)
[2017-10-29] MEDS: DULOXETINE (CYMBALTA) 30 MG CAP PO SCH (08:56)
[2017-10-29] MEDS: CHOLECALCIFEROL 1000 INTER.UNIT TAB PO SCH (08:57)
[2017-10-29] MEDS: ETHACRYNIC ACID 25 MG TAB PO SCH (08:57)
[2017-10-29] MEDS: LEUCOVORIN CALCIUM 5 MG TAB PO SCH (08:57)
[2017-10-29] MEDS: LACTOBACILLUS ACIDOPHILUS (FLORANEX) TAB PO SCH (08:57)
[2017-10-29] MEDS: PSYLLIUM 58.6% PWD PACK S\\F PO SCH (08:58)
[2017-10-29] MEDS: MAGNESIUM OXIDE 400 MG TAB PO SCH (08:58)
[2017-10-29] MEDS: LIDODERM (LIDOCAINE) PATCH 5% TD SCH (08:59)
[2017-10-29] MEDS: PREGABALIN 100 MG CAP PO SCH (09:04)
[2017-10-29] MEDS ORDERED: ATV5 PO (10:50)
[2017-10-29] MEDS ORDERED: ACET-1256 PO (10:50)
[2017-10-29] MEDS ORDERED: MRLP17X PO (10:50)
[2017-10-29] MEDS ORDERED: LISI-461 PO (10:50)
[2017-10-29] MEDS ORDERED: LYR100 PO (10:50)
[2017-10-29] MEDS ORDERED: CLC100 PO (10:50)
[2017-10-29] MEDS ORDERED: CYM30 PO (10:50)
[2017-10-29] MEDS ORDERED: DLD/2 PO (10:50)
--- NOTE | 2017-10-29 10:56 | Discharge Instructions ---
Discharge Instructions Date of Service Oct 29, 2017. Admission Reason for Admission: Compression Fracture Discharge Discharge Diagnosis / Problem: Intercostal neuralgia, Thoracic compression fracture Discharge Goals Goal(s): Improve disease control, Diagnostic testing, Therapeutic intervention Activity Recommendations Activity Limitations: as noted below Lifting Limitations: no more than 5 pounds Exercise/Sports Limitations: gradually increase as tolerated Shower/Bathe: no limitations . Instructions / Follow-Up Instructions / Follow-Up You were admitted with a new thoracic compression fracture and severe pain of the left rib cage from thoracic radiculitis and intercostal neuralgia. You had injections in the ribs which provided no relief. You were started and will be continued on Lyrica to replace your Neurontin, Cymbalta, Dilaudid, and Ativan which are all for pain and/or muscle spasm. If your insurance denies the Lyrica, PLEASE BEGIN TAKING GABAPENTIN (NEURONTIN) 200mg three times a day instead. Please follow up with your PCP as soon as you feel able to get to her office. Current Hospital Diet Patient's current hospital diet: Regular Diet Discharge Diet Recommended Diet: Regular Diet Fluid Restriction: 1500 ml (6 cups) Procedures Procedures Performed: Chest xray Abdomen xray CT Abdomen/Pelvis CT Thoracic SPine MRI Thoracic Spine Left 6,7,8 intercostal nerve blocks Pending Studies Studies pending at discharge: no Medical Emergencies . Who to Call and When: Medical Emergencies: If at any time you feel your situation is an emergency, please call 911 immediately. . Non-Emergent Contact Non-Emergency issues call your: Primary Care Provider Call Non-Emergent contact if: your pain is not controlled, your pain is worsening, your pain is unusual for you, your pain is concerning you, you have any medication questions . . "Provider Documentation" section prepared by Debora Fregoso. . VTE Core Measure Inpt VTE Proph given/why not?: Unfractionated heparin SQ [place] Drug Monitoring Program Search Results: patient reviewed within database, no issues identified
--- NOTE | 2017-10-29 11:15 | Discharge Summary ---
Discharge Summary Date of Service Oct 29, 2017. Discharge Summary Admission Date: Oct 17, 2017 at 12:40 Discharge Date: Oct 29, 2017 Discharge Disposition: Home with services Principal Diagnosis: Thoracic compression fracture, Thoracic radiculitis, Intercostal neuralgia Problems/Secondary Diagnoses: SLE Scleroderma Polymyositis on chronic prednisone Severe osteoporosis with h/o multiple fractures Acute renal insufficiency on CKD stage III Gastroparesis History of gastrectomy for PUD with resultant malabsorption syndrome Chronic diastolic CHF Hyperlipidemia HTN MVR Metronidazole-induced polyneuropathy Hyperthyroidism Hyponatremia Right adnexal lesion-measuring 7.4 x [address] scan Pancreatic neck lesion-1.[address]---> GI recommending both EGD and EUS as an outpatient in 1-2 weeks Immunizations: Have You Had Influenza Vaccine: Yes Influenza Vaccine Date: Jul 28, 2012 History of Tetanus Vaccine?: Yes Tetanus Immunization Date: March 27, 2009 History of Pneumococcal: Yes Pneumococcal Date: March 27, 2009 History of Hepatitis B Vaccine: No Procedures: Chest xray Abdomen xray CT Abdomen/Pelvis CT Thoracic SPine MRI Thoracic Spine Left 6,7,8 intercostal nerve blocks Consultations: Pain Management Orthopedics Orthopedic Spine Nephrology Gastroenterology Medication Reconciliation New Medications: Docusate Sodium (Docusate Sodium) 100 Mg Cap 100 MG PO BID for 30 Days, #60 CAP Duloxetine HCl (Duloxetine HCl) 30 Mg Cap 30 MG PO QAM for 30 Days, #30 CAP Hydromorphone HCl (Hydromorphone HCl) 2 Mg Tab 2 MG PO Q4H PRN for Pain, #45 TAB Lorazepam (Lorazepam) 0.5 Mg Tab 0.5 MG PO Q6 PRN for Anxiety or muscle spasm, #30 TAB Polyethylene (Miralax) 17 Gm Pow 17 GM PO DAILY PRN for Constipation for 30 Days Pregabalin (Lyrica) 100 Mg Cap 100 MG PO BID for 30 Days, #60 CAP Changed Medications: Acetaminophen (Tylenol) 500 Mg Tab 500 MG PO Q6H PRN for Pain for 30 Days (Changed from: UD) Lisinopril (Lisinopril) 10 Mg Tab 5 MG PO HS for 30 Days (Changed from: 10 MG) Continued Medications: Atorvastatin (Lipitor) 20 Mg Tab 20 MG PO HS Biotin (Biotin) 1,000 Mcg Tab 1000 MCG PO QAM Calcitriol (Rocaltrol Cap) 0.25 Mcg Cap 0.25 MCG PO QAM Cholecalciferol (Vitamin D3) 1,000 Unit Tab 3000 UNIT PO DAILY for 90 Days, #27 TAB 3 Refills Cyanocobalamin (Cyanocobalamin) 1,000 Mcg/Ml Inj 1 DOSE INJ MONTHLY Denosumab (Prolia) 60 Mg/Ml Benita 60 MG INJ UD () 10 MG PO QID Ethacrynic Acid (Edecrin) 25 Mg Tab 100 MG PO QAM Fluocinolone Acetonide (Otic) (Fluocinolone Acetonide) 0.01 % Oil 5 DROPS OTL DAILY Leucovorin Calcium (Leucovorin Calcium) 5 Mg Tab 5 MG PO DAILY Loratadine (Claritin) 10 Mg Tab 10 MG PO QAM Magnesium Oxide (Magnesium) 250 Mg Tab 250 MG PO QAM Methimazole (Methimazole ) 5 Mg Tab 2.5 MG PO QAM 1/2 TABLET DOSE Metoprolol Tartrate (Lopressor) (Lopressor) 25 Mg Tab 12.5 MG PO BID 1/2 TABLET DOSE Mometasone Furoate (Nasal) (Mometasone Furoate) 50 Mcg/Act Spr 1 SPRAY ROBIN DAILY Multiple Vitamins W/ Minerals (Preservision Areds 2) 1 Cap Cap 1 CAP PO BID Prednisone (Prednisone) 5 Mg Tab 5 MG PO QAM Discontinued Medications: Gabapentin (Neurontin) 100 Mg Cap 100 MG PO BID, CAP Gabapentin (Neurontin) 100 Mg Cap 200 MG PO HS Peg [id number] Bicarb-Sod Ch (Golytely) 1 Benita Benita 1-3 DOSE PO QPM 1-3 GLASSES STARTING AT 5PM DEPENDING ON DEGREE OF ABDOMINAL PAIN AND NEED Tramadol (Ultram) 50 Mg Tab 50 MG PO HS PRN for Pain Discharge Exam Pain is the same, worse with sitting up. Otherwise no new complaints, ready for dc to home Review of Systems: Constitutional: No fever, No chills Eyes: No problem reported ENT: No problem reported Respiratory: No problem reported Cardiovascular: No problem reported Abdomen: No problem reported Musculoskeletal: + problem reported (left rib cage) Genitourinary - Female: No problem reported Neurologic: No problem reported Psychiatric: No problem reported Endocrine: No problem reported Hematologic / Lymphatic: No problem reported Integumentary: No problem reported Physical Exam: General Appearance: WD/WN, no apparent distress (lying in bed) Eyes: normal inspection, sclerae normal ENT: hearing grossly normal Neck: trachea midline Respiratory/Chest: lungs clear, normal breath sounds, no respiratory distress, no accessory muscle use Cardiovascular: regular rate, rhythm, no edema, no gallop, + systolic murmur (2/6 at LLSB) Abdomen / GI: normal bowel sounds, non tender, soft, no organomegaly, + pertinent finding (no ttp over spine or rib cage) Extremities: no calf tenderness, no pedal edema Neurologic/Psychiatric: alert, oriented x 3, + depressed affect Skin: normal color, warm/dry, no rash Hospital Course This patient is an 81-year-old female with a history of SLE, scleroderma, polymyositis on chronic prednisone, severe osteoporosis with multiple fractures , CKD stage III, gastroparesis, history of gastrectomy for PUD with resultant malabsorption syndrome, chronic diastolic CHF, HTN, HL, MVR, metronidazole- induced polyneuropathy, and hyperthyroidism, who presented with intractable left sided rib/abd pain with non-traumatic spinal compression fracture at T7. T7 compression fracture/intercostal neuralgia/thoracic radiculitis-was overly sedated when on Nucynta, became hyponatremic with Cymbalta, but Nephrology does not think it is from the Cymbalta. Her home dose of gabapentin was increased upon admission, and she may have some relief with the Lidoderm patch and by mouth Dilaudid at least of the compression fracture pain. Dc'd gabapentin in favor of Lyrica as it usually works faster and with less side effects than gabapentin. CT abd/pelvis unremarkable, hx of ischemic colitis, cdiff, but there is no suspicion of those at this time. MRI thoracic spine confirms T7 acute to subacute compression fracture as well as neural foraminal stenosis T11-12 Orthopedics and Orthopedic spine consulted-recommended pain management Pain management consulted-intercostal nerve block completed 10/25 with no relief per pt-Pain Management has signed off, says there is nothing further for them to offer and to f/u with PCP -Continue Lidoderm patch, continue po dilaudid prn -Will continue trial of Lyrica and discontinued gabapentin to see if helps with pain and has less side effects--> increased Lyrica to 100mg po bid as max dose with her renal failure -Continue Ativan 0.5 mg when necessary for anxiety and/or muscle spasm -denied stay at SNF by Insurance--> pt appealed and that was denied--> now willing to go home in a litter van with home health as she cannot sit in a wheelchair for more than 2 minutes Yjcmpplataic-ernw-kiyppict and severe, with history of multiple pathological fractures. Has been on bisphosphonates, calcitonin, Forteo in the past. -Currently on Prolia -Continue calcitriol and cholecalciferol -f/u with Rheum Chronic diastolic CHF/HL/HTN-No signs of exacerbation of CHF, BPs acceptable -cont home meds of atorvastatin, metoprolol -was holding lisinopril for renal insufficiency, but restarted at lower dose of 5mg due to relatively low normal BPs Acute on chronic kidney disease stage 3/hyponatremia-creatinine lower than her baseline at 1.14 but has been off her lisinopril. Na+ as low as 125, now up to 131-132 with fluid restriction. Nephrology thinks she was drinking too much. Cymbalta can cause SIADH, but Nephrology does not think she has SIADH; however she is being treated with fluid restriction and continuation of her ethacrynic acid -restarted lisinopril at lower dose of 5 mg -Consult nephrology appreciated -ok to restart Cymbalta as above -continue Demadex -Follow PRP as outpt -Avoid nephrotoxins -Renally dose medications -continue fluid restriction of 1500 mL at home Neuropathy-stable, present bilateral lower extremities and right arm -Neurontin switched to Lyrica as above Hyperthyroidism: TSH recently normal -Continue Methimazole 250Mg PO qAM Chronic Malabsorption status post gastrectomy -Continue Vit D, Mag, calcium, B12 supplements Right adnexal lesion-measuring 7.4 x 6.[address] scan. Patient reports she is followed routinely by gynecology every 3 months for this Pancreatic neck lesion-1.[address] Gastroenterology has seen the patient and is recommending both EGD and EUS as an outpatient next week -Will need follow-up scheduled with [facility] as outpt as soon as she can get there but pain is limiting her from being transported in seated position currently Stable for dc to home Total Time Spent: Greater than 30 minutes This includes examination of the patient, discharge planning, medication reconciliation, and communication with other providers. Discharge Instructions Please refer to the electronic Patient Visit Report (Discharge Instructions) for additional information. Follow-Up PCP within 1-2 weeks Pain Management as needed [facility] within 1-2 weeks Additional Copies To Maria Alejandra Crespo M.D.; RV. Mariano MD
[2017-10-29] MEDS ORDERED: LDDP5 TD (11:16)
[2017-10-29 12:55] VITALS: BP 112/67; PULSE 60; TEMP 36.7; O2SAT 95
[2017-11-12] MEDS ORDERED: CYNI1000 INJ (03:19)
[2017-11-12] MEDS ORDERED: CHOL1000 PO (03:20)
[2017-11-12] MEDS ORDERED: MAGN250T22 PO (08:16)
[2017-11-12] MEDS ORDERED: CALC0.2510 PO (09:55)
[2017-11-12] MEDS ORDERED: PRED-301 PO (09:55)
[2017-11-12] MEDS ORDERED: MULT60CA PO (13:10)
[2017-11-12] MEDS ORDERED: LORA10TA51 PO (13:10)
[2017-11-12] MEDS ORDERED: MOME6000 NAE (13:10)
[2017-11-12] MEDS ORDERED: DENO60SO INJ (13:10)
[2017-11-12] MEDS ORDERED: [UNRECOGNIZED DRUG - CODE] PO (13:10)
[2017-11-12] MEDS ORDERED: BIOT1TAB5 PO (13:10)
[2017-11-12] MEDS ORDERED: FLUO5OIL OTL (13:10)
[2017-11-12] MEDS ORDERED: ATOR-22 PO (13:11)
[2017-11-12] MEDS ORDERED: METO25TA56 PO (14:34)
[2017-11-12] MEDS ORDERED: [UNRECOGNIZED DRUG - OTHER] PO (14:46)
== END 2017-10-29 13:34 | disposition home health service (06) | DRG 543 ==
LOC: EDBD 16:43 → C.EDC 16:44 → C.MSW 21:55 → EDBEDREQSVC 22:19 → ENRESERV 22:25 → OBSVTOIN 10-17 12:40
PROVIDERS: ADMIT Internal Medicine; ATTEND Family Medicine
PROC: 3E0T3BZ Introduction of Anesthetic Agent into Peripheral Nerves and Plexi, Percutaneous Approach (ICD-10-PCS; principal; 2017-10-25)
DX: M80.88XA Other osteoporosis with current pathological fracture, vertebra(e), initial encounter for fracture (principal); I50.32 Chronic diastolic (congestive) heart failure; I13.0 Hypertensive heart and chronic kidney disease with heart failure and stage 1 through stage 4 chronic kidney disease, or unspecified chronic kidney disease; K91.2 Postsurgical malabsorption, not elsewhere classified; N17.9 Acute kidney failure, unspecified; E87.1 Hypo-osmolality and hyponatremia; M33.20 Polymyositis, organ involvement unspecified; G58.0 Intercostal neuropathy; M54.14 Radiculopathy, thoracic region; K31.84 Gastroparesis; F41.9 Anxiety disorder, unspecified; K86.9 Disease of pancreas, unspecified; G62.0 Drug-induced polyneuropathy; T37.8X5A Adverse effect of other specified systemic anti-infectives and antiparasitics, initial encounter; E53.8 Deficiency of other specified B group vitamins; N18.3 Chronic kidney disease, stage 3 (moderate); E78.5 Hyperlipidemia, unspecified; M32.9 Systemic lupus erythematosus, unspecified; E05.90 Thyrotoxicosis, unspecified without thyrotoxic crisis or storm; I25.10 Atherosclerotic heart disease of native coronary artery without angina pectoris; Z51.81 Encounter for therapeutic drug level monitoring; Z79.899 Other long term (current) drug therapy; Z79.52 Long term (current) use of systemic steroids; Z66 Do not resuscitate; Z82.49 Family history of ischemic heart disease and other diseases of the circulatory system

== ENCOUNTER → 2017-11-08 | Outpatient (CLI) | payer BC ==
[~2017-11-08] MED LIST changes: +ATOR-22 PO; +ATV5 PO; +BIOT1TAB5 PO; +CALC0.2510 PO; +CHOL1000 PO; +CLC100 PO; +CYM/30 PO; +CYM30 PO; +CYNI1000 INJ; +DENO60SO INJ; +DLD/2 PO; +ETHA1TAB3 PO; +FLUO5OIL OTL; +GUAI1TAB55 PO; +LDDP5 TD; +LORA10TA51 PO; +LYR100 PO; +MAGN250T22 PO; +METO25TA56 PO; +MOME6000 NAE; +MRLP17X PO; +MULT60CA PO; +NAPR1TAB9 PO; -OXYC1TAB3 PO; -PEGSOL8 PO; +PRED-301 PO; -TRAM-10 PO; +[UNRECOGNIZED DRUG - CODE] PO; +[UNRECOGNIZED DRUG - OTHER] PO
[2017-11-08 19:29] LABS: ALBUMIN 3.2 gm/dl (3.4-5.0); ALT/SGPT 25 U/L (12-78); AST/SGOT 23 U/L (15-37); BLOOD UREA NITROGEN 40 mg/dl (7-18); CALCIUM 8.2 mg/dl (8.5-10.1); CARBON DIOXIDE 28 mmol/L (21-32); CREATININE 1.39 mg/dl (0.60-1.20); GLUCOSE 75 mg/dl (70-99); POTASSIUM 4.2 mmol/L (3.5-5.1); SODIUM 133 mmol/L (136-145)
[2017-11-08 19:30] LABS: ALKALINE PHOSPHATASE 75 U/L (45-117); TOTAL PROTEIN 6.3 gm/dl (6.4-8.2)
== END | disposition home or self-care (01) ==
LOC: C.LABSPEC 15:38
PROVIDERS: ATTEND Internal Medicine
DX: E87.1 Hypo-osmolality and hyponatremia (principal)

== ENCOUNTER 2017-11-12 19:53 | Emergency (ER) | payer BC ==
[~2017-11-12] VITALS: Ht 160 cm; Wt 75.0 kg
[~2017-11-12 19:53] MED LIST changes: -CYM/30 PO; -ETHA1TAB3 PO; -GABA-112 PO; -GUAI1TAB55 PO; -NAPR1TAB9 PO
[2017-11-12 20:03] VITALS: Ht 160 cm; Wt 75.0 kg
[2017-11-12 20:29] VITALS: O2SAT 98
[2017-11-12] MEDS ORDERED: GABA-112 PO (21:07)
[2017-11-12] MEDS ORDERED: CYM/30 PO (21:07)
[2017-11-12] MEDS ORDERED: NAPR1TAB9 PO (21:07)
[2017-11-12] MEDS ORDERED: ACET-1256 PO (21:07)
[2017-11-12] MEDS ORDERED: GUAI1TAB55 PO (21:07)
[2017-11-12] MEDS ORDERED: ETHA1TAB3 PO (21:15)
[2017-11-12 21:21] LABS: INFLUENZA B ANTIGEN Neg for Influ B (NEG)
--- NOTE | 2017-11-12 21:23 | DIAGNOSTIC IMAGING REPORT ---
CHEST ONE VIEW PORTABLE CLINICAL HISTORY: Atypical chest pain COMPARISON STUDY: 10/25/2017 FINDINGS: The cardiac and mediastinal contours remain stable. There is no failure. There is no focal pulmonary consolidation. There are no pleural effusions. A rhomboid left perihilar opacity, likely represents a vascular summation[ IMPRESSION: 1. Left perihilar opacity, likely representing a summation. A follow-up PA and lateral study in 6 weeks' time is recommended 2. No evidence of failure. No evidence of focal pulmonary consolidation Electronically signed by: Virgilio Galarza M.D. 11/12/2017 9:22 PM Dictated Date/Time: 11/12/2017 9:20 PM
[2017-11-12 21:42] LABS: BASO % 0.3 %; BASO ABS # 0.03 K/uL (0-0.2); EOS % 0.6 %; EOS ABS # 0.06 K/uL (0-0.5); HEMATOCRIT 36.5 % (37-47); HEMOGLOBIN 12.2 g/dL (12.0-16.0); LYMPH % 13.2 %; MEAN CELL VOLUME 93.6 fL (80-100); MEAN CORPUSCULAR HEMOGLOBIN 31.3 pg (25-34); MEAN CORPUSCULAR HGB CONC 33.4 g/dl (32-36); MEAN PLATELET VOLUME 8.8 fL (7.4-10.4); MONO % 7.1 %; MONO ABS # 0.76 K/uL (0.11-0.59); NEUT % 77.9 %; NEUT ABS # 8.29 K/uL (1.4-6.5); PLATELET COUNT 239 K/uL (130-400); RED CELL DISTRIBUTION WIDTH SD 47.7 fL (36.4-46.3); WHITE BLOOD COUNT 10.64 K/uL (4.8-10.8)
--- NOTE | 2017-11-12 21:44 | EMERGENCY ROOM VISIT NOTE ---
History Report prepared by Yovanny: Jovanna Aggarwal Under the Supervision of: Dr. Blas Barnhart M.D. First contact with patient: 20:04 Chief Complaint: BACK PAIN Stated Complaint: WEAKNESS/BACK PAIN History of Present Illness The patient is an 81 year old female who presents to the Emergency Room with complaints of persistent fever starting 4 days ago. She has also had a pounding headache, sinus pain, and an ear ache for the past 4 days. She has been taking Tylenol to no significant relief. Last night, she tried taking an Aleve for her headache and fever. She is not supposed to take Aleve due to her kidney failure. The patient woke up around 0130 and was diaphoretic. She drank some water, took another Aleve, and went back to sleep. She is on fluid restriction due to her history of low sodium. She woke up several times throughout the night with diaphoresis and weakness. At 1000, she woke up and called her son. She felt weak and was unable to lift her head or arms. Her left eye was bloodshot and her hands were shaking. She felt dehydrated so she drank water. She has noticed her blood pressure has been high today. She has already taken her blood pressure medications today. She denies any abdominal pain, cough, urinary symptoms, rhinorrhea, body aches, or sore throat. She has a history of thoracic spine fracture and has nerve pain into her ribs. She has a history of scleroderma, CHF, and kidney failure. She did not take her diuretic today because she felt dehydrated. She has had her flu shot this season. Source of History: patient Onset: 4 days ago Position: other (global) Quality: other (fever) Timing: other (persistent) Associated Symptoms: + headache, + diaphoresis, + weakness, No sorethroat, No cough, No abdominal pain, No urinary symptoms Note: Pt reports sinus pain, ear ache, shaking, high blood pressure. Pt denies rhinorrhea, body aches. Review of Systems See HPI for pertinent positives & negatives. A total of 10 systems reviewed and were otherwise negative. Past Medical & Surgical Medical Problems: (1) Appendectomy (2) Benign hypertension (3) C DIFF POA (4) Cholecystectomy (5) Chronic congestive heart failure (6) Colitis (7) Colonoscopy (8) Compression fracture (9) Depression (10) dextroscoliosis (11) E COLI UTI POA (12) Gastroesophageal reflux disease (13) Hyperlipidemia (14) Hysterectomy (15) orthopedic surgery (16) Osteoporosis (17) Pancreatic lesion (18) PERSONAL HISTORY OF PEPTIC ULCER DISEASE (19) Pyelonephritis (20) renal disease (21) Sepsis (22) Vertigo Family History Cancer Gallbladder disease Heart disease Hypertension Social History Smoking Status: Former Smoker Alcohol Use: none Drug Use: none Marital Status: Housing Status: lives with family Occupation Status: retired Current/Historical Medications Scheduled , 10 MG PO QID Atorvastatin (Lipitor), 20 MG PO HS Biotin (Biotin), 1,000 MCG PO QAM Calcitriol (Rocaltrol Cap), 0.25 MCG PO QAM Cholecalciferol (Vitamin D3), 3,000 UNIT PO DAILY Cyanocobalamin (Cyanocobalamin), 1 DOSE INJ MONTHLY Denosumab (Prolia), 60 MG INJ UD Docusate Sodium (Docusate Sodium), 100 MG PO BID Duloxetine Hcl (Cymbalta), 30 MG PO DAILY Ethacrynic Acid (Edecrin), 100 MG PO QAM Fluocinolone Acetonide (Otic) (Fluocinolone Acetonide), 5 DROPS OTL DAILY Gabapentin (Neurontin), 100 MG PO TID Guaifenesin Ext Rel (Mucinex Ext Rel), 600 MG PO Q12 Leucovorin Calcium (Leucovorin Calcium), 5 MG PO DAILY Lidocaine (Lidocaine), 1 PATCH TD QAM Lisinopril (Lisinopril), 5 MG PO HS Loratadine (Claritin), 10 MG PO QAM Magnesium Oxide (Magnesium), 250 MG PO QAM Methimazole (Methimazole ), 2.5 MG PO QAM Metoprolol Tartrate (Lopressor) (Lopressor), 12.5 MG PO BID Mometasone Furoate (Nasal) (Mometasone Furoate), 1 SPRAY ROBIN DAILY Multiple Vitamins W/ Minerals (Preservision Areds 2), 1 CAP PO BID Naproxen (Aleve), 220 MG PO PRN UD Prednisone (Prednisone), 5 MG PO QAM Scheduled PRN Acetaminophen (Tylenol), 1-2 TABS PO Q6 PRN for Pain Hydromorphone HCl (Hydromorphone HCl), 2 MG PO Q4H PRN for Pain Lorazepam (Lorazepam), 0.5 MG PO Q6 PRN for Anxiety or muscle spasm Polyethylene (Miralax), 17 GM PO DAILY PRN for Constipation Allergies Coded Allergies: Adhesives (Verified Allergy, Severe, BLISTERING, 10/15/17) PAPER TAPE CAUSES SEVERE BLISTERING Cefuroxime (Verified Allergy, Unknown, INEFFECTIVE, 10/15/17) Ciprofloxacin (Verified Allergy, Unknown, INEFFECTIVE, 10/15/17) Erythromycin (Verified Allergy, Unknown, SEVERE VOMITING, 10/15/17) Furosemide (Verified Allergy, Unknown, HIVES, SULFA ALLERGY TO LOOP DIURETICS, 10/15/17) Hydrochlorothiazide (Verified Allergy, Unknown, HIVES, 10/15/17) Levofloxacin (Verified Allergy, Unknown, INEFFECTIVE, 10/15/17) Metoclopramide (Verified Allergy, Unknown, anxiety attacks, 10/15/17) Sulfa Antibiotics (Verified Allergy, Unknown, HIVES AND ANAPHYLAXIS, ) Metronidazole (Verified Adverse Reaction, Severe, Neuropathy, 10/15/17) Meperidine (Verified Adverse Reaction, Unknown, INEFFECTIVE FOR PT, ) INAFFECTIVE FOR PATIENT Uncoded Allergies: all diuretics (Allergy, Severe, throat swells, 06/10/17) Physical Exam Vital Signs Date Time Temp Pulse Resp B/P (MAP) Pulse Ox O2 Delivery O2 Flow Rate FiO2 11/13/17 00:30 61 18 149/67 98 Room Air 11/13/17 00:19 62 11/12/17 23:10 64 18 158/64 96 Room Air 11/12/17 22:11 60 18 127/63 97 Room Air 11/12/17 21:52 58 20 162/74 97 Room Air 11/12/17 20:47 59 18 160/63 98 Room Air 11/12/17 20:29 98 Room Air 11/12/17 20:03 37.0 63 20 167/96 98 Room Air 11/12/17 20:00 66 Physical Exam General: Non-ill appearing older female who is very talkative and in no acute distress. HEENT: Normal cephalic atraumatic. Pupils are equal round and reactive to light. Extraocular movements are intact. Oropharynx is pink with moist mucous membranes. No swelling of the mouth lips or tongue. Neck: Supple with a midline trachea. No meningeal signs or stiffness, no JVD or bruits. No Stridor. Negative Kernig's sign and Brudzinski's sign. Chest: Clear to auscultation bilaterally. No wheezes or rhonchi. No increased work of breathing. Heart: regular rate and rhythm. Abdomen: Soft nontender, nondistended without rebound guarding or rigidity. Extremities: No cyanosis clubbing or edema. No calf tenderness or assymetry Spine/Back. Non tender to palpation. No CVA tenderness Skin: Good turgor without rashes. Neurologic exam: Cranial nerves two through 12 are intact. Motor and sensation are intact and symmetrical throughout. Medical Decision & Procedures ER Provider Diagnostic Interpretation: X-ray results as stated below per interpretation by me and the radiologist. Radiology results as stated below per my review and radiologist interpretation: CHEST ONE VIEW PORTABLE CLINICAL HISTORY: Atypical chest pain COMPARISON STUDY: 10/25/2017 FINDINGS: The cardiac and mediastinal contours remain stable. There is no failure. There is no focal pulmonary consolidation. There are no pleural effusions. A rhomboid left perihilar opacity, likely represents a vascular summation[ IMPRESSION: 1. Left perihilar opacity, likely representing a summation. A follow-up PA and lateral study in 6 weeks' time is recommended 2. No evidence of failure. No evidence of focal pulmonary consolidation Electronically signed by: Virgilio Galarza M.D. 11/12/2017 9:22 PM Dictated Date/Time: 11/12/2017 9:[address] HEAD WITHOUT CONTRAST (CT) CLINICAL HISTORY: headache, sinus congestion COMPARISON STUDY: 06/09/2014 TECHNIQUE: Axial CT of the brain is performed from the vertex to the skull base. IV contrast was not administered for this examination. A dose lowering technique was utilized adhering to the principles of ALARA. CT DOSE: 655.73 mGy.cm FINDINGS: No intra or extra-axial mass lesions are visualized. There is no CT evidence of acute cortical infarction. There is no evidence of midline shift. There is no acute hemorrhage. No calvarial fractures are visualized. There are minimal white matter hypodensities likely on a small vessel basis. There is mild atrophy most pronounced involving the cerebellum. There is no evidence of pathologic ventricular dilatation. There are small mastoid effusions left greater than right IMPRESSION: 1. Small left mastoid effusion and tiny right mastoid effusion 2. Otherwise no acute intracranial findings. Electronically signed by: Virgilio Galarza M.D. 11/12/2017 10:05 PM Dictated Date/Time: 11/12/2017 10:03 PM Laboratory Results 11/12/17 21:25 Red Blood Count 3.90, Mean Corpuscular Volume 93.6, Mean Corpuscular Hemoglobin 31.3, Mean Corpuscular Hemoglobin Concent 33.4, Mean Platelet Volume 8.8, Neutrophils (%) (Auto) 77.9, Lymphocytes (%) (Auto) 13.2, Monocytes (%) (Auto) 7.1, Eosinophils (%) (Auto) 0.6, Basophils (%) (Auto) 0.3, Neutrophils # (Auto) 8.29, Lymphocytes # (Auto) 1.40, Monocytes # (Auto) 0.76, Eosinophils # (Auto) 0.06, Basophils # (Auto) 0.03 11/12/17 21:25 Test 11/12/17 20:37 11/12/17 20:48 11/12/17 21:25 11/12/17 21:38 Influenza Type A (RT-PCR) Neg for Influ A (NEG) Influenza Type A Antigen Neg for Influ A (NEG) Influenza Type B Antigen Neg for Influ B (NEG) Influenza Type B (RT-PCR) Neg for Influ B (NEG) Urine Color YELLOW Urine Appearance CLEAR (CLEAR) Urine pH 7.5 (4.5-7.5) Urine Specific [place] 1.012 (1.000-1.030) Urine Protein NEG (NEG) Urine Glucose (UA) NEG (NEG) Urine Ketones NEG (NEG) Urine Occult Blood NEG (NEG) Urine Nitrite NEG (NEG) Urine Bilirubin NEG (NEG) Urine Urobilinogen NEG (NEG) Urine Leukocyte Esterase NEG (NEG) White Blood Count 10.64 K/uL (4.8-10.8) Red Blood Count 3.90 M/uL (4.2-5.4) Hemoglobin 12.2 g/dL (12.0-16.0) Hematocrit 36.5 % (37-47) Mean Corpuscular Volume 93.6 fL (80-100) Mean Corpuscular Hemoglobin 31.3 pg (25-34) Mean Corpuscular Hemoglobin Concent 33.4 g/dl (32-36) Platelet Count 239 K/uL (130-400) Mean Platelet Volume 8.8 fL (7.4-10.4) Neutrophils (%) (Auto) 77.9 % Lymphocytes (%) (Auto) 13.2 % Monocytes (%) (Auto) 7.1 % Eosinophils (%) (Auto) 0.6 % Basophils (%) (Auto) 0.3 % Neutrophils # (Auto) 8.29 K/uL (1.4-6.5) Lymphocytes # (Auto) 1.40 K/uL (1.2-3.4) Monocytes # (Auto) 0.76 K/uL (0.11-0.59) Eosinophils # (Auto) 0.06 K/uL (0-0.5) Basophils # (Auto) 0.03 K/uL (0-0.2) RDW Standard Deviation 47.7 fL (36.4-46.3) RDW Coefficient of Variation 14.0 % (11.5-14.5) Immature Granulocyte % (Auto) 0.9 % Immature Granulocyte # (Auto) 0.10 K/uL (0.00-0.02) Prothrombin Time 11.0 SECONDS (9.0-12.0) Prothromb Time International Ratio 1.0 (0.9-1.1) Activated Partial Thromboplast Time 29.2 SECONDS (21.0-31.0) Partial Thromboplastin Ratio 1.1 Anion Gap 10.0 mmol/L (3-11) Est Creatinine Clear Calc Drug Dose 34.0 ml/min Estimated GFR () 46.3 Estimated GFR (Non- 39.9 BUN/Creatinine Ratio 21.9 (10-20) Calcium Level 8.3 mg/dl (8.5-10.1) Total Bilirubin 0.9 mg/dl (0.2-1) Direct Bilirubin 0.2 mg/dl (0-0.2) Aspartate Amino Transf (AST/SGOT) 22 U/L (15-37) Alanine Aminotransferase (ALT/SGPT) 21 U/L (12-78) Alkaline Phosphatase 67 U/L (45-117) Total Creatine Kinase 37 U/L (26-192) Creatine Kinase MB 1.3 ng/ml (0.5-3.6) Creatine Kinase MB Ratio 3.5 (0-3.0) Troponin I < 0.015 ng/ml (0-0.045) Total Protein 6.2 gm/dl (6.4-8.2) Albumin 3.3 gm/dl (3.4-5.0) Lipase 216 U/L (73-393) Bedside Lactic Acid Venous 0.70 mmol/L (0.90-1.70) Laboratory studies as stated above per my review. Medications Administered Medications (Trade) Dose Ordered Sig/[place] Route Start Time Stop Time Status Last Admin Dose Admin Sodium Chloride 500 ml @ 999 mls/hr Q31M STAT IV 11/12/17 22:44 11/12/17 23:14 DC 11/12/17 22:44 999 MLS/HR Hydromorphone HCl (Dilaudid Inj) 0.5 mg NOW STAT IV 11/12/17 22:49 11/12/17 22:50 DC 11/12/17 22:55 0.5 MG ECG Indication: weakness Rate (beats per minute): 58 Rhythm: sinus bradycardia Findings: 1st degree AV block, no acute ischemic change Comparison ECG Date: 15-Oct-2017 Change: no significant change ED Course 2006: Past medical records reviewed. The patient was evaluated in room C7, and a complete history and physical examination were performed. 2134: I reevaluated the patient. The nurse just got blood work. 2244: NSS 500 ml @ 999 mls/hr IV. 2248: I reevaluated the patient. 2249: Dilaudid Inj 0.5 mg IV. 2352: I reevaluated the patient. She is feeling too weak to go home. I discussed the results and treatment plan with the patient. She verbalized agreement of the treatment plan. The patient will be evaluated for further management. 0022: I discussed the patient's case with Dr. Hurtado, [facility] hospitalist. The patient will be evaluated for further management. Medical Decision Differentials include, but are not limited to; viral illness, sinusitis, electrolyte or metabolic abnormality, pneumonia, UTI, sepsis, meningitis. This patient comes in as described above. she has multiple different complaints she had a fever and aches sinus congestion. She has a very extensive medical history. IV access established blood work was obtained include blood cultures. Chest x-ray, head CT, EKG were also obtained. Chest x-ray does not show any evidence to suggest pneumonia. She has no acute EKG changes or anything to suggest cardiac disease. Influenza was obtained and was negative. She did receive 500 mL normal saline bolus. She also received Dilaudid 0.5 mg IV. Urinalysis does not suggest a UTI with a culture pending. Blood cultures are pending. Lactic acid white count are not elevated. Her sodium has gone back down a little bit at 129. She has baseline renal insufficiency which actually looks slightly better. She does not feel well enough to go home. She has been dehydrated and feeling generally weak. She also has had some fever and shakes at home. She tells me given her multiple medical problems that she does not tend to mount a white count or fever always with infection. I did consult the [facility] hospitalist for possible observation/admission. They have evaluated her and do not feel she needs to be admitted and that she can go home. We have rechecked her temperature. she's remained afebrile. I encouraged her to follow up with her doctor Tuesday for recheck or return to the we ER over the weekend if symptoms worsen. Medication Reconcilliation Current Medication List: was personally reviewed by me Blood Pressure Screening Patient's blood pressure: Elevated blood pressure Blood pressure disposition: Elevated BP felt to be situational, Referred to PCP Consults Time Called: 0001 Consulting Physician: Dr. Hurtado, [facility] hospitalist Returned Call: [phone] Discussed the patient's case. The patient will be evaluated for further management. Impression Primary Impression: Weakness Additional Impressions: Dehydration Back pain Scribe Attestation The scribe's documentation has been prepared under my direction and personally reviewed by me in its entirety. I confirm that the note above accurately reflects all work, treatment, procedures, and medical decision making performed by me. Departure Information Dispostion Being Evaluated By Hospitalist Referrals No Doctor, Assigned (PCP) Patient Instructions My [facility] Problem Qualifiers
[2017-11-12 21:50] LABS: PTT PATIENT 29.2 SECONDS (21.0-31.0)
[2017-11-12 22:00] LABS: ALBUMIN 3.3 gm/dl (3.4-5.0); ALT/SGPT 21 U/L (12-78); BLOOD UREA NITROGEN 28 mg/dl (7-18); CALCIUM 8.3 mg/dl (8.5-10.1); CARBON DIOXIDE 24 mmol/L (21-32); CREATININE 1.26 mg/dl (0.60-1.20); GLUCOSE 97 mg/dl (70-99); LIPASE 216 U/L (73-393); POTASSIUM 4.2 mmol/L (3.5-5.1); SODIUM 129 mmol/L (136-145)
[2017-11-12 22:04] LABS: INFLUENZA A PCR Neg for Influ A (NEG); INFLUENZA B PCR Neg for Influ B (NEG)
[2017-11-12 22:05] LABS: ALKALINE PHOSPHATASE 67 U/L (45-117); AST/SGOT 22 U/L (15-37); TOTAL PROTEIN 6.2 gm/dl (6.4-8.2)
--- NOTE | 2017-11-12 22:06 | DIAGNOSTIC IMAGING REPORT ---
CT HEAD WITHOUT CONTRAST (CT) CLINICAL HISTORY: headache, sinus congestion COMPARISON STUDY: 06/09/2014 TECHNIQUE: Axial CT of the brain is performed from the vertex to the skull base. IV contrast was not administered for this examination. A dose lowering technique was utilized adhering to the principles of ALARA. CT DOSE: 655.73 mGy.cm FINDINGS: No intra or extra-axial mass lesions are visualized. There is no CT evidence of acute cortical infarction. There is no evidence of midline shift. There is no acute hemorrhage. No calvarial fractures are visualized. There are minimal white matter hypodensities likely on a small vessel basis. There is mild atrophy most pronounced involving the cerebellum. There is no evidence of pathologic ventricular dilatation. There are small mastoid effusions left greater than right IMPRESSION: 1. Small left mastoid effusion and tiny right mastoid effusion 2. Otherwise no acute intracranial findings. Electronically signed by: Virgilio Galarza M.D. 11/12/2017 10:05 PM Dictated Date/Time: 11/12/2017 10:03 PM
[2017-11-12 22:16] LABS: CKMB 1.3 ng/ml (0.5-3.6)
[2017-11-12] MEDS ORDERED: SODIUM CHLORIDE 0.9% 1000ML 500 ML IV STA (22:44)
[2017-11-12] MEDS ORDERED: HYDROmorphone INJ 0.5 MG/0.5 ML SYR IV STA (22:49)
[2017-11-13 01:45] VITALS: TEMP 37
--- NOTE | 2017-11-13 02:14 | Medical Consult ---
Consultation Date of Consultation: Nov 13, 2017. Attending Physician: Benny Pollard MD Reason for Consultation: Weakness, Diaphoresis History of Present Illness 81 yo F with SLE, scleroderma, polymyositis on chronic prednisone, severe osteoporosis with multiple fractures, CKD stage III, gastroparesis, history of gastrectomy for PUD with resultant malabsorption syndrome, chronic diastolic CHF , HTN, HL, MVR, metronidazole-induced polyneuropathy, and hyperthyroidism, chronic left sided rib with non-traumatic spinal compression fracture at T7. She currently presents with 5 day h/o temp up to 100 degrees and progressive weakness, diaphoresis. Last night, had take Aleve at 3pm, woke up at 1:30, felt warm sweaty, fatigue, weakness, shaking hands. woke up at 10 am. told by son her lips were white. She feel progressively more weak, dehydrated, had some water ( 7 cups). despite fluid restriction by nephrologists ( limited to 1500cc /day) . She feels she has infection. Around 5 pm She had a 99.9 temp., her heart was pounding. BP systolic 158 at home. She didn't take her diuretic due presumed dehydration. She also reports Left earache, no nasal congestion, no cough, no sob no chest pain. Patient denies n/v, abdominal pain, diarrhea. Patient has h/o septic shock/ileus in March, sent to [facility], developed rare side effect of neuropathy secondary to Flagyl use according to patient. She as since ambulated with wheel chair. She says she can't sit up easily due to chronic pain in back and ribs. Pt arrived afebrile at 37, hypertensive, normal White cell count. H/H 12.2/36.5, Na 129, Bun/Cr 28.6/1.26 Past Medical/Surgical History Medical Problems: (1) Abdominal pain Status: Acute (2) Back pain Status: Acute (3) Back pain Status: Acute (4) Dehydration Status: Acute (5) Hypotension Status: Acute (6) Ischemic colitis Status: Acute (7) Rectal bleed Status: Acute (8) Rib pain Status: Acute (9) Weakness Status: Acute Family History Cancer Gallbladder disease Heart disease Hypertension Cancer Gallbladder disease Heart disease Hypertension Non-Contributory Social History Smoking Status: Former Smoker Drug Use: none Marital Status: Housing Status: lives with family Occupation Status: retired Allergies Coded Allergies: Adhesives (Verified Allergy, Severe, BLISTERING, 10/15/17) PAPER TAPE CAUSES SEVERE BLISTERING Cefuroxime (Verified Allergy, Unknown, INEFFECTIVE, 10/15/17) Ciprofloxacin (Verified Allergy, Unknown, INEFFECTIVE, 10/15/17) Erythromycin (Verified Allergy, Unknown, SEVERE VOMITING, 10/15/17) Furosemide (Verified Allergy, Unknown, HIVES, SULFA ALLERGY TO LOOP DIURETICS, 10/15/17) Hydrochlorothiazide (Verified Allergy, Unknown, HIVES, 10/15/17) Levofloxacin (Verified Allergy, Unknown, INEFFECTIVE, 10/15/17) Metoclopramide (Verified Allergy, Unknown, anxiety attacks, 10/15/17) Sulfa Antibiotics (Verified Allergy, Unknown, HIVES AND ANAPHYLAXIS, ) Metronidazole (Verified Adverse Reaction, Severe, Neuropathy, 10/15/17) Meperidine (Verified Adverse Reaction, Unknown, INEFFECTIVE FOR PT, ) INAFFECTIVE FOR PATIENT Uncoded Allergies: all diuretics (Allergy, Severe, throat swells, 06/10/17) Review of Systems Constitutional: + fever (subjective), + weakness Respiratory: No cough, No wheezing, No shortness of breath Cardiovascular: No chest pain, No edema, No palpitations Abdomen: No pain, No nausea, No vomiting, No diarrhea, No constipation Musculoskeletal: + problem reported (back pain, L sided rib pain) Genitourinary - Female: No dysuria, No urinary frequency, No urinary urgency Integumentary: No rash, No itch Physical Exam Date Time Temp Pulse Resp B/P (MAP) Pulse Ox O2 Delivery O2 Flow Rate FiO2 11/13/17 01:45 37.0 70 20 146/86 97 Room Air 11/13/17 00:30 61 18 149/67 98 Room Air 11/13/17 00:19 62 11/12/17 23:10 64 18 158/64 96 Room Air 11/12/17 22:11 60 18 127/63 97 Room Air 11/12/17 21:52 58 20 162/74 97 Room Air 11/12/17 20:47 59 18 160/63 98 Room Air 11/12/17 20:29 98 Room Air 11/12/17 20:03 37.0 63 20 167/96 98 Room Air 11/12/17 20:00 66 GENERAL: alert, no distress, non-toxic EYE EXAM: PERRL and EOM's grossly intact OROPHARYNX: no exudate, no erythema, lips, buccal mucosa, and tongue normal and mucous membranes are moist NECK: supple, no nuchal rigidity, no adenopathy, non-tender LUNGS: Clear to auscultation. Normal chest wall mechanics HEART: no murmurs, S1 normal and S2 normal ABDOMEN: abdomen soft, non-tender, normo-active bowel sounds, no masses, no rebound or guarding. BACK: Back is symmetrical on inspection and there is no deformity, SKIN: no rashes and no bruising LOWER EXTREMITIES: No pitting edema. NEURO EXAM: Normal sensorium, cranial nerves II-XII grossly intact, normal speech, Laboratory Results Last 24 Hours Test 11/12/17 20:20 11/12/17 20:37 11/12/17 20:48 11/12/17 21:25 Creatine Kinase MB Ratio 3.5 Influenza Type A (RT-PCR) Neg for Influ A Influenza Type A Antigen Neg for Influ A Influenza Type B Antigen Neg for Influ B Influenza Type B (RT-PCR) Neg for Influ B Urine Color YELLOW Urine Appearance CLEAR Urine pH 7.5 Urine Specific [place] 1.012 Urine Protein NEG Urine Glucose (UA) NEG Urine Ketones NEG Urine Occult Blood NEG Urine Nitrite NEG Urine Bilirubin NEG Urine Urobilinogen NEG Urine Leukocyte Esterase NEG White Blood Count 10.64 K/uL Red Blood Count 3.90 M/uL Hemoglobin 12.2 g/dL Hematocrit 36.5 % Mean Corpuscular Volume 93.6 fL Mean Corpuscular Hemoglobin 31.3 pg Mean Corpuscular Hemoglobin Concent 33.4 g/dl Platelet Count 239 K/uL Mean Platelet Volume 8.8 fL Neutrophils (%) (Auto) 77.9 % Lymphocytes (%) (Auto) 13.2 % Monocytes (%) (Auto) 7.1 % Eosinophils (%) (Auto) 0.6 % Basophils (%) (Auto) 0.3 % Neutrophils # (Auto) 8.29 K/uL Lymphocytes # (Auto) 1.40 K/uL Monocytes # (Auto) 0.76 K/uL Eosinophils # (Auto) 0.06 K/uL Basophils # (Auto) 0.03 K/uL RDW Standard Deviation 47.7 fL RDW Coefficient of Variation 14.0 % Immature Granulocyte % (Auto) 0.9 % Immature Granulocyte # (Auto) 0.10 K/uL Prothrombin Time 11.0 SECONDS Prothromb Time International Ratio 1.0 Activated Partial Thromboplast Time 29.2 SECONDS Partial Thromboplastin Ratio 1.1 Sodium Level 129 mmol/L Potassium Level 4.2 mmol/L Chloride Level 95 mmol/L Carbon Dioxide Level 24 mmol/L Anion Gap 10.0 mmol/L Blood Urea Nitrogen 28 mg/dl Creatinine 1.26 mg/dl Est Creatinine Clear Calc Drug Dose 34.0 ml/min Estimated GFR () 46.3 Estimated GFR (Non- 39.9 BUN/Creatinine Ratio 21.9 Random Glucose 97 mg/dl Calcium Level 8.3 mg/dl Total Bilirubin 0.9 mg/dl Direct Bilirubin 0.2 mg/dl Aspartate Amino Transf (AST/SGOT) 22 U/L Alanine Aminotransferase (ALT/SGPT) 21 U/L Alkaline Phosphatase 67 U/L Total Creatine Kinase 37 U/L Creatine Kinase MB 1.3 ng/ml Troponin I < 0.015 ng/ml Total Protein 6.2 gm/dl Albumin 3.3 gm/dl Lipase 216 U/L Test 11/12/17 21:38 Bedside Lactic Acid Venous 0.70 mmol/L Assessment & Plan 81 yo F with SLE, scleroderma, polymyositis on chronic prednisone, severe osteoporosis with multiple fractures, CKD stage III, gastroparesis, 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 Weakness, diaphoresis Headache - no evidence of fever >/= 100.4 prior to arrival. repeat tempt 98.6 prior to discharge - afebrile on arrival, no leukocytosis, neg, UA, neg, Cxr -based on findings, no evidence of infection, - CT head did show Small left mastoid effusion and tiny right mastoid effusion however appears chronic given similar finding on previous imaging - Recommend follow up with Primary care doctor on Tuesday 11/14 CKD -Cr 1.26, stable -Cr at or improved from baseline -F/u with PCP, Nephrology Hyponatremia - chronically - Na 129 - Management per outpatient nephrology -Currently on fluid restriction LE, scleroderma, polymyositis -no acute flare up -may be contributor to low grade temperature elevations -Continue prednisone 5 mg daily HTN - Continue Lisinopril Metoprolol -F/u with PCP -Based on lack of findings supporting infection or any other complaint necessitating hospital admission, recommendation is to discharge patient to home with quick follow up to PCP for ongoing care and management. Resident Physician Supervision Note: I was present with Dr. Hurtado during the history and exam. I discussed the case with the resident and agree with the findings and plan as documented in the note. Any exceptions or clarifications are listed here: 81 y/o F with a complex medical history including MCTD, diastolic CHF, CKD III, hyponatremia - presented with a littany of complaints including dehydration, night sweats, headache - she states that her son had taked her BP earlier in the day and noted that the systolic BP was 155. This alarmed him and he arranged transport to the hospital. The pt also states that due to sweats and her temp being up to 100 - she beleives she has an infection. We were unable to confirm a fever while she was in the ER and she does not have leukocytois or a suspected focus of infection. OE AAO x 3 - pt was highly agitated S1,2 R CTAB NT, ND No CCE P: The pt was evaluated for possible infection - her UA is negative, CXR is clear, abdomen is benign and there is no evidence of PNM. Na is low although approximately at baseline. It os possible that she is having sweats related to her autoimmune condition. In light of the above we believe it is reasonable for the pt to follow-up in the outpt setting. We have not made changes to her medications and have instructed her to F/U with her MD at the earliest possible time. Above discussed in with pt and ER attending Documented By: Benny Pollard Resident Tracking Resident Involvement: Resident Care Provided Care Provided: [facility]
[2017-11-13 02:39] VITALS: BP 146/72; PULSE 68; O2SAT 95
== END 2017-11-13 03:16 | disposition home or self-care (01) ==
LOC: EDUNIT# 19:53 → C.EDC 19:56
DX: E86.0 Dehydration (principal); R53.1 Weakness; M54.9 Dorsalgia, unspecified; I44.0 Atrioventricular block, first degree; N18.9 Chronic kidney disease, unspecified; I12.9 Hypertensive chronic kidney disease with stage 1 through stage 4 chronic kidney disease, or unspecified chronic kidney disease; E78.5 Hyperlipidemia, unspecified; I51.9 Heart disease, unspecified; M81.0 Age-related osteoporosis without current pathological fracture; F32.9 Major depressive disorder, single episode, unspecified; K21.9 Gastro-esophageal reflux disease without esophagitis; Z87.81 Personal history of (healed) traumatic fracture; Z87.11 Personal history of peptic ulcer disease; Z87.440 Personal history of urinary (tract) infections; Z90.49 Acquired absence of other specified parts of digestive tract; Z98.890 Other specified postprocedural states; Z87.891 Personal history of nicotine dependence; Z79.899 Other long term (current) drug therapy; Z88.2 Allergy status to sulfonamides; Z88.8 Allergy status to other drugs, medicaments and biological substances; Z91.09 Other allergy status, other than to drugs and biological substances; Z80.9 Family history of malignant neoplasm, unspecified; Z83.79 Family history of other diseases of the digestive system; Z82.49 Family history of ischemic heart disease and other diseases of the circulatory system

== ENCOUNTER → 2017-12-19 | Outpatient (CLI) | payer BC ==
[~2017-12-19] MED LIST changes: +CYM/30 PO; -CYM30 PO; +ETHA1TAB3 PO; +GABA-112 PO; +GUAI1TAB55 PO; -LYR100 PO; +NAPR1TAB9 PO
--- NOTE | 2017-12-19 10:35 | DIAGNOSTIC IMAGING REPORT ---
SOFT TISS HEAD/NECK-THYROID CLINICAL HISTORY: 82 years-old Female presenting with E04.2 Multiple thyroid nodulesTO BE DONE IN DEC 2017 E X0D E ULT. TECHNIQUE: Real-time grayscale and color Doppler ultrasound imaging of the thyroid and base of the neck was performed. COMPARISON: 06/09/2017. FINDINGS: Right lobe: Heterogeneous parenchyma. The right lobe of the thyroid measures 6.3 x 3.1 x 2.7 cm, previously 6.7 x 3.0 x 2.4 cm. Multiple nodules: 1) Upper pole heterogeneously isoechoic well-defined nodule measuring 1.4 x 1.2 x 1.5 cm, previously 1.4 x 1.1 x 1.2 cm. (Low suspicion pattern) 2) Lower pole heterogeneously isoechoic well-defined nodule measuring 2.9 x 2.5 x 2.9 cm, previously 3.3 x 2.4 x 2.9 cm. (Low suspicion pattern) Left lobe: Heterogeneous parenchyma. The left lobe of the thyroid measures 5.4 x 2.7 x 2.5 cm, previously 5.3 x 2.3 x 2.5 cm. Multiple nodules: 1) Lower pole heterogeneously isoechoic well-defined nodule measuring 2.6 x 1.8 x 2.1 cm, previously 2.3 x 1.5 x 2.1 cm. (Low suspicion pattern) Isthmus: The isthmus measures 5 mm in thickness, previously 5 mm. Isoechoic nodule along the left aspect measuring 0.8 cm, previously 1.0 x 1.4 x 0.7 cm. (Low suspicion pattern) IMPRESSION: Multiple low suspicion pattern nodules throughout the thyroid. Fine-needle aspiration of the dominant nodule in the right and left lobes recommended per the [place] [employer] 2015 criteria if this has not are ready been performed. Electronically signed by: Ajay Lee M.D. 12/19/2017 10:33 AM Dictated Date/Time: 12/19/2017 10:27 AM
== END | disposition home or self-care (01) ==
LOC: C.ULTR 09:52
PROVIDERS: ATTEND Physician Assistant
DX: E04.2 Nontoxic multinodular goiter (principal)

== ENCOUNTER 2018-01-11 18:41 | Observation (INO) | payer BC ==
[~2018-01-11] VITALS: Ht 154.9 cm; Wt 79.8 kg
[2018-01-11 19:33] LABS: BASO % 0.4 %; BASO ABS # 0.04 K/uL (0-0.2); HEMATOCRIT 37.2 % (37-47); HEMOGLOBIN 11.9 g/dL (12.0-16.0); IG# 0.09 K/uL (0.00-0.02); LYMPH % 13.4 %; LYMPH ABS # 1.29 K/uL (1.2-3.4); MEAN CELL VOLUME 100.8 fL (80-100); MEAN CORPUSCULAR HEMOGLOBIN 32.2 pg (25-34); MONO % 7.4 %; MONO ABS # 0.71 K/uL (0.11-0.59); NEUT % 76.9 %; NEUT ABS # 7.39 K/uL (1.4-6.5); PLATELET COUNT 217 K/uL (130-400); RED CELL DISTRIBUTION WIDTH CV 13.7 % (11.5-14.5); RED CELL DISTRIBUTION WIDTH SD 50.6 fL (36.4-46.3); WHITE BLOOD COUNT 9.62 K/uL (4.8-10.8)
[2018-01-11 19:42] LABS: PTT PATIENT 27.8 SECONDS (21.0-31.0)
--- NOTE | 2018-01-11 19:43 | EMERGENCY ROOM VISIT NOTE ---
History Report prepared by Yovanny: Kwame Rey Under the Supervision of: Dr. Wong Pollock M.D. First contact with patient: 18:45 Chief Complaint: BACK PAIN Stated Complaint: UPPER BACK PAIN, L ARM & CHEST PAIN History of Present Illness The patient is an 82 year old female who presents to the Emergency Room with complaints of persistent sharp neck pain for two hours. She was holding a small empty box to place a label on it, when she initially experienced sharp neck pain. She reports neck pain radiating to her chest and left arm. She notes the pain lasted for a few minutes, but then transitioned to intermittent pain. She notes the pain is now constant in her neck and left arm. She felt sweaty and short of breath when the pain began. She denies any similar symptoms in the past. She has a history of kidney failure and regularly follows up with Dr. Lim, comic artist. She states that she can lay flat to sleep without breathing issues or pain. She has been retaining large amounts of fluid in the past week. She is unsure if she has gained weight. She uses a a wheelchair to get around, though she can transfer herself to and from the wheelchair. She was admitted for seven weeks last March 2017 for septic shock due to an ileus and C. diff. She was seen November 2017 for ear infections and persistent fever. She is on daily Prednisone and antibiotics. Pt denies headache, fevers, chills, nausea, vomiting , abdominal pain, back pain, melena, hematochezia, urinary symptoms, numbness, weakness, rash, or other complaints. Source of History: patient Onset: two hours Position: neck Quality: sharp Timing: other (persistent) Associated Symptoms: + chest pain, + SOB Note: She notes left arm pain and sweating. Review of Systems See HPI for pertinent positives and negatives. A total of ten systems were reviewed and were otherwise negative. Past Medical & Surgical Medical Problems: (1) Appendectomy (2) Benign hypertension (3) C DIFF POA (4) Cholecystectomy (5) Chronic congestive heart failure (6) Colitis (7) Colonoscopy (8) Compression fracture (9) Depression (10) dextroscoliosis (11) E COLI UTI POA (12) Gastroesophageal reflux disease (13) Hyperlipidemia (14) Hysterectomy (15) orthopedic surgery (16) Osteoporosis (17) Pancreatic lesion (18) PERSONAL HISTORY OF PEPTIC ULCER DISEASE (19) Pyelonephritis (20) renal disease (21) Sepsis (22) Vertigo Family History Cancer Gallbladder disease Heart disease Hypertension Social History Smoking Status: Former Smoker Alcohol Use: none Drug Use: none Marital Status: Housing Status: lives with family Occupation Status: retired Current/Historical Medications Scheduled , 10 MG PO QID Atorvastatin (Lipitor), 20 MG PO HS Biotin (Biotin), 1,000 MCG PO QAM Calcitriol (Rocaltrol Cap), 0.25 MCG PO QAM Cefdinir (Omnicef), 300 MG PO Q12H Cholecalciferol (Vitamin D3), 3,000 UNIT PO DAILY Cyanocobalamin (Cyanocobalamin), 1 DOSE INJ [id number] Denosumab (Prolia), 60 MG INJ UD Ethacrynic Acid (Edecrin), 100 MG PO QAM Fluocinolone Acetonide (Otic) (Fluocinolone Acetonide), 5 DROPS OTL DAILY Leucovorin Calcium (Leucovorin Calcium), 5 MG PO DAILY Lisinopril (Lisinopril), 10 MG PO HS Loratadine (Claritin), 10 MG PO QAM Magnesium Oxide (Magnesium), 250 MG PO QAM Methimazole (Methimazole ), 2.5 MG PO QAM Metoprolol Tartrate (Lopressor) (Lopressor), 12.5 MG PO BID Mometasone Furoate (Nasal) (Mometasone Furoate), 1 SPRAY ROBIN DAILY Multiple Vitamins W/ Minerals (Preservision Areds 2), 1 CAP PO BID Naproxen (Aleve), 220 MG PO PRN UD Prednisone (Prednisone), 5 MG PO QAM Pregabalin (Lyrica), 25 MG PO BID Sodium Chloride (Sodium Chloride), 1 GM PO BID Vancomycin Hcl (Vancomycin), 250 MG PO QID Scheduled PRN Acetaminophen (Tylenol), 1-2 TABS PO Q6 PRN for Pain Peg [id number] Bicarb-Sod Ch (Golytely), 1 DOSE PO DIRECTED PRN for Constipation Polyethylene Glycol 3350 (Miralax), 17 GM PO DAILY PRN for Constipation Tramadol (Ultram), 50 MG PO Q8H PRN for Pain Allergies Coded Allergies: Adhesives (Verified Allergy, Severe, BLISTERING, 3/7/18) PAPER TAPE CAUSES SEVERE BLISTERING Cefuroxime (Verified Allergy, Unknown, INEFFECTIVE, 01/11/18) Ciprofloxacin (Verified Allergy, Unknown, INEFFECTIVE, 01/11/18) Erythromycin (Verified Allergy, Unknown, SEVERE VOMITING, 01/11/18) Furosemide (Verified Allergy, Unknown, HIVES, SULFA ALLERGY TO LOOP DIURETICS, 01/11/18) Hydrochlorothiazide (Verified Allergy, Unknown, HIVES, 01/11/18) Levofloxacin (Verified Allergy, Unknown, INEFFECTIVE, 01/11/18) Metoclopramide (Verified Allergy, Unknown, anxiety attacks, 01/11/18) Sulfa Antibiotics (Verified Allergy, Unknown, HIVES AND ANAPHYLAXIS, ) Metronidazole (Verified Adverse Reaction, Severe, Neuropathy, 01/11/18) Meperidine (Verified Adverse Reaction, Unknown, INEFFECTIVE FOR PT, 01/11/18 ) INAFFECTIVE FOR PATIENT Uncoded Allergies: all diuretics (Allergy, Severe, throat swells, 06/10/17) Physical Exam Vital Signs Date Time Temp Pulse Resp B/P (MAP) Pulse Ox O2 Delivery O2 Flow Rate FiO2 01/11/18 20:30 59 19 147/71 01/11/18 20:01 130/75 01/11/18 20:00 60 24 100 Room Air 01/11/18 19:37 97 Room Air 01/11/18 19:37 58 22 133/71 97 Room Air 01/11/18 19:37 97 Room Air 01/11/18 19:36 61 01/11/18 18:46 36.7 63 21 143/72 99 Room Air Physical Exam GENERAL: Awake, alert, well-appearing, in no distress HENT: Normocephalic, atraumatic. Oropharynx unremarkable. EYES: Normal conjunctiva. Sclera non-icteric. NECK: Supple. No nuchal rigidity. FROM. No masses. RESPIRATORY: Clear to auscultation. No wheezes. CARDIAC: Normal rate. Normal rhythm. No murmurs. No rubs. Extremities warm and well perfused. Pulses equal. No JVD. GI: Soft, non-distended. No tenderness to palpation. No rebound or guarding. No masses. RECTAL: Deferred. MUSCULOSKELETAL: Atraumatic. Chest examination reveals no tenderness. The back is symmetrical on inspection without obvious abnormality. There is no CVA tenderness to palpation. No joint edema. No tenderness in left shoulder or left neck. Good ROM of left shoulder. LOWER EXTREMITIES: Calves are equal size bilaterally and non-tender. 1+ LE edema. No discoloration. NEURO: Normal sensorium. No sensory or motor deficits noted. SKIN: No rash or jaundice noted. Medical Decision & Procedures ER Provider Diagnostic Interpretation: Radiology results as stated below per my review interpretation: Chest x-ray. Findings: A chest x-ray was performed and revealed no pneumothorax , effusion, infiltrate, pulmonary edema, free air under the diaphragm, or wide mediastinum. Laboratory Results 01/11/18 19:00 Red Blood Count 3.69, Mean Corpuscular Volume 100.8, Mean Corpuscular Hemoglobin 32.2, Mean Corpuscular Hemoglobin Concent 32.0, Mean Platelet Volume 10.0, Neutrophils (%) (Auto) 76.9, Lymphocytes (%) (Auto) 13.4, Monocytes (%) ( Auto) 7.4, Eosinophils (%) (Auto) 1.0, Basophils (%) (Auto) 0.4, Neutrophils # ( Auto) 7.39, Lymphocytes # (Auto) 1.29, Monocytes # (Auto) 0.71, Eosinophils # ( Auto) 0.10, Basophils # (Auto) 0.04 01/11/18 19:00 Test 01/11/18 19:00 White Blood Count 9.62 K/uL (4.8-10.8) Red Blood Count 3.69 M/uL (4.2-5.4) Hemoglobin 11.9 g/dL (12.0-16.0) Hematocrit 37.2 % (37-47) Mean Corpuscular Volume 100.8 fL (80-100) Mean Corpuscular Hemoglobin 32.2 pg (25-34) Mean Corpuscular Hemoglobin Concent 32.0 g/dl (32-36) Platelet Count 217 K/uL (130-400) Mean Platelet Volume 10.0 fL (7.4-10.4) Neutrophils (%) (Auto) 76.9 % Lymphocytes (%) (Auto) 13.4 % Monocytes (%) (Auto) 7.4 % Eosinophils (%) (Auto) 1.0 % Basophils (%) (Auto) 0.4 % Neutrophils # (Auto) 7.39 K/uL (1.4-6.5) Lymphocytes # (Auto) 1.29 K/uL (1.2-3.4) Monocytes # (Auto) 0.71 K/uL (0.11-0.59) Eosinophils # (Auto) 0.10 K/uL (0-0.5) Basophils # (Auto) 0.04 K/uL (0-0.2) RDW Standard Deviation 50.6 fL (36.4-46.3) RDW Coefficient of Variation 13.7 % (11.5-14.5) Immature Granulocyte % (Auto) 0.9 % Immature Granulocyte # (Auto) 0.09 K/uL (0.00-0.02) Prothrombin Time 10.2 SECONDS (9.0-12.0) Prothromb Time International Ratio 1.0 (0.9-1.1) Activated Partial Thromboplast Time 27.8 SECONDS (21.0-31.0) Partial Thromboplastin Ratio 1.1 Anion Gap 6.0 mmol/L (3-11) Est Creatinine Clear Calc Drug Dose 35.2 ml/min Estimated GFR () 43.0 Estimated GFR (Non- 37.1 BUN/Creatinine Ratio 33.9 (10-20) Calcium Level 9.1 mg/dl (8.5-10.1) Total Bilirubin 0.4 mg/dl (0.2-1) Direct Bilirubin 0.1 mg/dl (0-0.2) Aspartate Amino Transf (AST/SGOT) 17 U/L (15-37) Alanine Aminotransferase (ALT/SGPT) 29 U/L (12-78) Alkaline Phosphatase 74 U/L (45-117) Total Creatine Kinase 40 U/L (26-192) Creatine Kinase MB 1.9 ng/ml (0.5-3.6) Creatine Kinase MB Ratio 4.8 (0-3.0) Troponin I < 0.015 ng/ml (0-0.045) Total Protein 7.1 gm/dl (6.4-8.2) Albumin 3.6 gm/dl (3.4-5.0) Lipase 350 U/L (73-393) Laboratory results reviewed by me Medications Administered Medications (Trade) Dose Ordered Sig/[place] Route Start Time Stop Time Status Last Admin Dose Admin Aspirin (Aspirin Chew) 324 mg NOW STAT PO 01/11/18 20:14 01/11/18 20:15 DC 01/11/18 20:36 324 MG ECG Per My Interpretation Indication: chest pain Rate (beats per minute): 59 Rhythm: sinus bradycardia Findings: 1st degree AV block, no acute ischemic change, no ectopy, other (Low voltage QRS. Poor R wave progression. ) Change: EMS ECG: Indication: Chest Pain Sinus Rhythm 65 bpm Findings: 1st degree AV block, No acute ischemic changes, No ectopy, Poor R wave progression. ED Course 1846: The patient was evaluated in room B12B. A complete history and physical exam was performed. 2010: I reassessed the patient at this time. She is is feeling better and resting comfortably. I discussed the results and treatment plan with the patient. I answered all pertaining questions that she had. She expressed understanding and verbalized agreement. The patient will be further evaluated. 2019: I spoke with ANTOINETTE Azevedo hospitalist. We discussed the patient's case. The patient will be evaluated by the [facility] for further management. Medical Decision Triage Nursing notes reviewed. The patient's presentation and history were concerning for chest and arm pain. Etiologies such as cardiac ischemia, aortic dissection, pulmonary embolism, pneumonia, pneumothorax, musculoskeletal, infections, gastrointestinal, as well as others were entertained. Patient was evaluated. Clinically she was doing well. ECG was nonischemic. She was currently pain-free. She had several minutes of chest pain that radiated to the arm, neck and back. Chest x-ray was performed and was unremarkable. Blood work was performed. CBC, chemistry panel, LFTs, lipase, and cardiac markers were negative. The patient was given aspirin. She she has an extensive medical history and had chest pain that requires further evaluation. She is currently pain-free. Consultation was made with internal medicine. The patient was evaluated in the ER for further management. Medication Reconcilliation Current Medication List: was personally reviewed by me Blood Pressure Screening Patient's blood pressure: Elevated blood pressure referred to hospitalist Consults Time Called: 2009 Consulting Physician: ANTOINETTE Azevedo hospitalist Returned Call: 2019 I spoke with ANTOINETTE Azevedo resident hospitalist. We discussed the patient's case. The patient will be evaluated by the [facility] for further management. Dr. Mathew Velasco, attending physician was also made aware in consultation. Impression Primary Impression: Left sided chest pain Scribe Attestation The scribe's documentation has been prepared under my direction and personally reviewed by me in its entirety. I confirm that the note above accurately reflects all work, treatment, procedures, and medical decision making performed by me. Departure Information Dispostion Being Evaluated By Hospitalist Referrals No Doctor, Assigned (PCP) Patient Instructions My [facility]
[2018-01-11 19:51] LABS: ALBUMIN 3.6 gm/dl (3.4-5.0); ALT/SGPT 29 U/L (12-78); AST/SGOT 17 U/L (15-37); BLOOD UREA NITROGEN 45 mg/dl (7-18); CALCIUM 9.1 mg/dl (8.5-10.1); CARBON DIOXIDE 27 mmol/L (21-32); CREATININE 1.33 mg/dl (0.60-1.20); GLUCOSE 106 mg/dl (70-99); LIPASE 350 U/L (73-393); POTASSIUM 4.8 mmol/L (3.5-5.1); SODIUM 138 mmol/L (136-145)
[2018-01-11 19:57] LABS: ALKALINE PHOSPHATASE 74 U/L (45-117); CKMB 1.9 ng/ml (0.5-3.6); TOTAL PROTEIN 7.1 gm/dl (6.4-8.2)
[2018-01-11] MEDS ORDERED: LISI-461 PO (20:14)
[2018-01-11] MEDS ORDERED: VANC1CAP3 PO (20:14)
[2018-01-11] MEDS ORDERED: SDMC1 PO (20:14)
[2018-01-11] MEDS ORDERED: CEFD1CAP14 PO (20:14)
[2018-01-11] MEDS ORDERED: ASPIRIN 81 MG CHEW PO STA (20:14)
[2018-01-11] MEDS ORDERED: POLY335019 PO (20:14)
[2018-01-11] MEDS ORDERED: PREG1CAP36 PO (20:14)
[2018-01-11] MEDS ORDERED: TRAM-10 PO (20:14)
[2018-01-11] MEDS ORDERED: PEGSOL8 PO (20:14)
--- NOTE | 2018-01-11 20:27 | DIAGNOSTIC IMAGING REPORT ---
SINGLE VIEW CHEST CLINICAL HISTORY: Atypical chest pain. FINDINGS: An AP, portable, upright chest radiograph is compared to study dated 11/12/2017. The examination is degraded by portable technique and apical lordotic positioning. The cardiomediastinal silhouette is unremarkable. Atherosclerotic calcification is noted in the thoracic aorta. There are low lung volumes. There is chronic elevation of the right hemidiaphragm and bibasilar atelectasis. Chronic interstitial thickening is similar to previous. No airspace consolidation or large pleural effusion is identified. No pneumothorax is seen. The skeletal structures are osteopenic. The bony thorax is grossly intact. Arthritic change is noted in the shoulders and thoracic spine. IMPRESSION: Low lung volumes with no acute cardiopulmonary abnormality. Electronically signed by: Todd Urias M.D. 01/11/2018 8:25 PM Dictated Date/Time: 01/11/2018 8:24 PM
[2018-01-11] MEDS ORDERED: ACETAMINOPHEN 500 MG TAB PO PRN (20:45)
[2018-01-11] MEDS ORDERED: ONDANSETRON INJ 2 MG/ML 2 ML VIAL IV PRN (20:45)
[2018-01-11] MEDS ORDERED: NITROGLYCERIN 0.4 MG SL PER TAB CHARGE SL PRN (20:45)
[2018-01-11] MEDS ORDERED: TRAMADOL HCL 50 MG TAB PO PRN (20:45)
[2018-01-11] MEDS ORDERED: ACETAMINOPHEN 325 MG TAB PO PRN (20:45)
[2018-01-11] MEDS ORDERED: MAGNESIUM HYDROXIDE SUSP 30 ML UDC PO PRN (20:45)
[2018-01-11] MEDS ORDERED: LISINOPRIL 10 MG TAB PO SCH (21:00)
[2018-01-11] MEDS ORDERED: ATORVASTATIN 20 MG TAB PO SCH (21:00)
--- NOTE | 2018-01-11 21:09 | History and Physical ---
History & Physical Date & Time of Service: Jan 11, 2018 at 20:45 Chief Complaint: Upper Back Pain, L Arm & Chest Pain Primary Care Physician: RV. Mariano MD History of Present Illness Source: patient, hospital records Patient is an 81 year old female with a complicated past medical history that presents with chest pain that started at 6pm this evening. The patient was sitting in her wheelchair this evening when she had sudden left sided shoulder pain that was sharp and 10/10. The pain then started to radiate down her left arm and over the left side of her chest. The patient also appreciates being mildly diaphoretic and short of breath with the episode. This discomfort lasted approximately 2 minutes. She has been having intermittent pain that is similar in nature but now only lasts seconds and is 2-3/10. Ther patient denies any pain with movement of the left arm, breathing, palpation, movements, or any other inciting events. The patient is currently resting in the ED with no acute complaints, EKG and Troponin have appeared normal. Follows with Dr. Ward for Cardiology. Past Medical/Surgical History Medical Problems: Mixed Connective Tissue Dz Hyperthyroidism Hyperparathyroidism Cataracts Spinal Stenosis Vit B12 Def Hearing Impairment Benign hypertension R. 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 Chronic congestive heart failure Compression fracture Depression dextroscoliosis E COLI UTI POA Gastroesophageal reflux disease Hyperlipidemia Osteoporosis PUD Pyelonephritis CKD Stage IV Sepsis Vertigo Surgical Hx: -Sub-total Gastrectomy with vagotomy -Cholecystectomy -Hysterectomy -Appendectomy -Spinal Surgeries x 3 - discectomy in 2007 was complicated by MRSA infection and required revision - performed by neurosurgery - she was not a candidate for fusion due to severe osteoporosis -Vaginal Repair -Thyroid/Breast Biopsies Family History Cancer Gallbladder disease Heart disease Hypertension Social History Smoking Status: Former Smoker Drug Use: none Marital Status: Housing status: lives with family Occupational Status: retired Immunizations History of Influenza Vaccine: Yes Influenza Vaccine Date: Jul 28, 2012 History of Tetanus Vaccine?: Yes Tetanus Immunization Date: March 27, 2009 History of Pneumococcal: Yes Pneumococcal Date: March 27, 2009 History of Hepatitis B Vaccine: No Allergies Coded Allergies: Adhesives (Verified Allergy, Severe, BLISTERING, 01/11/18) PAPER TAPE CAUSES SEVERE BLISTERING Cefuroxime (Verified Allergy, Unknown, INEFFECTIVE, 01/11/18) Ciprofloxacin (Verified Allergy, Unknown, INEFFECTIVE, 01/11/18) Erythromycin (Verified Allergy, Unknown, SEVERE VOMITING, 01/11/18) Furosemide (Verified Allergy, Unknown, HIVES, SULFA ALLERGY TO LOOP DIURETICS, 01/11/18) Hydrochlorothiazide (Verified Allergy, Unknown, HIVES, 01/11/18) Levofloxacin (Verified Allergy, Unknown, INEFFECTIVE, 01/11/18) Metoclopramide (Verified Allergy, Unknown, anxiety attacks, 01/11/18) Sulfa Antibiotics (Verified Allergy, Unknown, HIVES AND ANAPHYLAXIS, ) Metronidazole (Verified Adverse Reaction, Severe, Neuropathy, 01/11/18) Meperidine (Verified Adverse Reaction, Unknown, INEFFECTIVE FOR PT, 01/11/18 ) INAFFECTIVE FOR PATIENT Uncoded Allergies: all diuretics (Allergy, Severe, throat swells, 06/10/17) Home Medications Scheduled , 10 MG PO QID Atorvastatin (Lipitor), 20 MG PO HS Biotin (Biotin), 1,000 MCG PO QAM Calcitriol (Rocaltrol Cap), 0.25 MCG PO QAM Cefdinir (Omnicef), 300 MG PO Q12H Cholecalciferol (Vitamin D3), 3,000 UNIT PO DAILY Cyanocobalamin (Cyanocobalamin), 1 DOSE INJ [id number] Denosumab (Prolia), 60 MG INJ UD Ethacrynic Acid (Edecrin), 100 MG PO QAM Fluocinolone Acetonide (Otic) (Fluocinolone Acetonide), 5 DROPS OTL DAILY Leucovorin Calcium (Leucovorin Calcium), 5 MG PO DAILY Lisinopril (Lisinopril), 10 MG PO HS Loratadine (Claritin), 10 MG PO QAM Magnesium Oxide (Magnesium), 250 MG PO QAM Methimazole (Methimazole ), 2.5 MG PO QAM Metoprolol Tartrate (Lopressor) (Lopressor), 12.5 MG PO BID Mometasone Furoate (Nasal) (Mometasone Furoate), 1 SPRAY ROBIN DAILY Multiple Vitamins W/ Minerals (Preservision Areds 2), 1 CAP PO BID Naproxen (Aleve), 220 MG PO PRN UD Prednisone (Prednisone), 5 MG PO QAM Pregabalin (Lyrica), 25 MG PO BID Sodium Chloride (Sodium Chloride), 1 GM PO BID Vancomycin Hcl (Vancomycin), 250 MG PO QID Scheduled PRN Acetaminophen (Tylenol), 1-2 TABS PO Q6 PRN for Pain Nitroglycerin (Nitrostat), 0.4 MG SL UD PRN for Chest Pain Peg [id number] Bicarb-Sod Ch (Golytely), 1 DOSE PO DIRECTED PRN for Constipation Polyethylene Glycol 3350 (Miralax), 17 GM PO DAILY PRN for Constipation Tramadol (Ultram), 50 MG PO Q8H PRN for Pain Review of Systems See HPI for pertinent positives and negatives. A total of ten systems were reviewed and were otherwise negative. Physical Exam Vital Signs Date Time Temp Pulse Resp B/P (MAP) Pulse Ox O2 Delivery O2 Flow Rate FiO2 01/11/18 20:30 59 19 147/71 01/11/18 20:01 130/75 01/11/18 20:00 60 24 100 Room Air 01/11/18 19:37 97 Room Air 01/11/18 19:37 58 22 133/71 97 Room Air 01/11/18 19:37 97 Room Air 01/11/18 19:36 61 01/11/18 18:46 36.7 63 21 143/72 99 Room Air General Appearance: WD/WN, no apparent distress Head: normocephalic, atraumatic Eyes: normal inspection, sclerae normal Neck: supple, no carotid bruits Respiratory/Chest: chest non-tender, lungs clear, normal breath sounds Cardiovascular: regular rate, rhythm, + diastolic murmur (Mitral Regurg ) Abdomen/GI: normal bowel sounds, non tender, soft Extremities/Musculoskelatal: no calf tenderness, no pedal edema Neurologic/Psych: alert, oriented x 3 Diagnostics Laboratory Results Results Past 24 Hours Test 01/11/18 19:00 Range/Units White Blood Count 9.62 4.8-10.8 K/uL Red Blood Count 3.69 4.2-5.4 M/uL Hemoglobin 11.9 12.0-16.0 g/dL Hematocrit 37.2 37-47 % Mean Corpuscular Volume 100.8 80-100 fL Mean Corpuscular Hemoglobin 32.2 25-34 pg Mean Corpuscular Hemoglobin Concent 32.0 32-36 g/dl Platelet Count 217 130-400 K/uL Mean Platelet Volume 10.0 7.4-10.4 fL Neutrophils (%) (Auto) 76.9 % Lymphocytes (%) (Auto) 13.4 % Monocytes (%) (Auto) 7.4 % Eosinophils (%) (Auto) 1.0 % Basophils (%) (Auto) 0.4 % Neutrophils # (Auto) 7.39 1.4-6.5 K/uL Lymphocytes # (Auto) 1.29 1.2-3.4 K/uL Monocytes # (Auto) 0.71 0.11-0.59 K/uL Eosinophils # (Auto) 0.10 0-0.5 K/uL Basophils # (Auto) 0.04 0-0.2 K/uL RDW Standard Deviation 50.6 36.4-46.3 fL RDW Coefficient of Variation 13.7 11.5-14.5 % Immature Granulocyte % (Auto) 0.9 % Immature Granulocyte # (Auto) 0.09 0.00-0.02 K/uL Prothrombin Time 10.2 9.0-12.0 SECONDS Prothromb Time International Ratio 1.0 0.9-1.1 Activated Partial Thromboplast Time 27.8 21.0-31.0 SECONDS Partial Thromboplastin Ratio 1.1 Sodium Level 138 136-145 mmol/L Potassium Level 4.8 3.5-5.1 mmol/L Chloride Level 105 98-107 mmol/L Carbon Dioxide Level 27 21-32 mmol/L Anion Gap 6.0 3-11 mmol/L Blood Urea Nitrogen 45 7-18 mg/dl Creatinine 1.33 0.60-1.20 mg/dl Est Creatinine Clear Calc Drug Dose 35.2 ml/min Estimated GFR () 43.0 Estimated GFR (Non- 37.1 BUN/Creatinine Ratio 33.9 10-20 Random Glucose 106 70-99 mg/dl Calcium Level 9.1 8.5-10.1 mg/dl Total Bilirubin 0.4 0.2-1 mg/dl Direct Bilirubin 0.1 0-0.2 mg/dl Aspartate Amino Transf (AST/SGOT) 17 15-37 U/L Alanine Aminotransferase (ALT/SGPT) 29 12-78 U/L Alkaline Phosphatase 74 45-117 U/L Total Creatine Kinase 40 26-192 U/L Creatine Kinase MB 1.9 0.5-3.6 ng/ml Creatine Kinase MB Ratio 4.8 0-3.0 Troponin I < 0.015 0-0.045 ng/ml Total Protein 7.1 6.4-8.2 gm/dl Albumin 3.6 3.4-5.0 gm/dl Lipase 350 73-393 U/L Impression Assessment and Plan Patient is an 81 year old female with a complicated past medical history that presents with chest pain that started at 6pm this evening Chest Pain - Admit to Telemetry - Troponin < 0.015 --> Repeat Q6H - EKst Degree AV Block, No ischemic changes, No significant changes from previous EKG - Repeat EKG tomorrow AM - Echo tomorrow morning - CXR: No acute cardiopulmonary abnormalities Neuropathy - Continue home Lyrica HLD - Continue home Atorvastatin HTN - currently stable - Continue home Lisinopril CKD Stage 3 - 1.33 --> At approximate baseline Hyperthyroidism: - Continue home methimazole CAD/CHF: - Continue home Metoprolol - Continue home Edecrin - Monitor I/O and Daily weight SLE - Continue home Prednisone C Diff - Continue oral Vancomycin Otitis Media - Continue Cefdinir DVT - Heparin Code Status - Full Resuscitation Attending addendum: I have physically seen this patient, have supervised the medical residents activities, and agree with the H&P unless as otherwise noted. Assessment and Plan: Precordial chest pain/CAD/CHF/hypertension-- The patient will be admitted to telemetry for serial cardiac enzymes, serial EKG's, cardiac rhythm monitoring and a 2-D echocardiogram with Dopplers. Continue metoprolol, lisinopril and edecrin. Serial CBC with differential, BMP and magnesium level. Hyperlipidemia-- Continue atorvastatin. Check a fasting lipid profile. Chronic kidney disease stage III-- Creatinine stable. Resuscitation Status DNR VTE Prophylaxis Will order VTE Prophylaxis: Yes Resident Tracking Resident Involvement: Resident Care Provided Care Provided: Adult Hospital Medicine
[2018-01-11] MEDS ORDERED: IV FLUIDS COMPLETED PRN (21:15)
[2018-01-11 21:50] VITALS: BP 142/69; PULSE 61; TEMP 36.5; O2SAT 100
[2018-01-11 21:59] VITALS: BP 142/69; PULSE 61; TEMP 36.5; O2SAT 100; Ht 154.9 cm; Wt 79.8 kg
[2018-01-11] MEDS: METOPROLOL TARTRATE 25 MG TAB PO SCH (22:24)
[2018-01-11] MEDS: PREGABALIN 25MG CAP PO SCH (22:26)
[2018-01-11] MEDS: CEFDINIR 300 MG CAP PO SCH (22:26)
[2018-01-11] MEDS: RASPBERRY SYRUP 5 ML UDP PO SCH (22:27)
[2018-01-11] MEDS: VANCOMYCIN HCL 250 MG/5 ML SOLN PO SCH (22:27)
[2018-01-11] MEDS: SODIUM CHLORIDE 1 GM TAB PO SCH (22:28)
[2018-01-11] MEDS: HEPARIN SOD 5000 UNIT/0.5 ML CARP SQ SCH (22:30)
[2018-01-11 23:58] VITALS: BP 134/71; PULSE 63; TEMP 36.9; O2SAT 95
[2018-01-12] VITALS (8 sets, daily range): BP systolic 107–132; BP diastolic 48–79; PULSE 60–65; TEMP 36.3–36.8; O2SAT 96–99
[2018-01-12 06:53] LABS: BASO % 0.3 %; BASO ABS # 0.02 K/uL (0-0.2); EOS % 2.6 %; EOS ABS # 0.18 K/uL (0-0.5); IG# 0.06 K/uL (0.00-0.02); LYMPH % 28.4 %; LYMPH ABS # 1.98 K/uL (1.2-3.4); MEAN CORPUSCULAR HEMOGLOBIN 32.4 pg (25-34); MEAN CORPUSCULAR HGB CONC 32.4 g/dl (32-36); MEAN PLATELET VOLUME 9.7 fL (7.4-10.4); MONO % 8.2 %; MONO ABS # 0.57 K/uL (0.11-0.59); NEUT % 59.6 %; NEUT ABS # 4.16 K/uL (1.4-6.5); PLATELET COUNT 176 K/uL (130-400); RED CELL DISTRIBUTION WIDTH CV 13.9 % (11.5-14.5); RED CELL DISTRIBUTION WIDTH SD 50.1 fL (36.4-46.3); WHITE BLOOD COUNT 6.97 K/uL (4.8-10.8)
[2018-01-12 07:34] LABS: BLOOD UREA NITROGEN 41 mg/dl (7-18); CALCIUM 8.7 mg/dl (8.5-10.1); CARBON DIOXIDE 25 mmol/L (21-32); CREATININE 1.14 mg/dl (0.60-1.20); GLUCOSE 77 mg/dl (70-99); POTASSIUM 4.2 mmol/L (3.5-5.1); SODIUM 144 mmol/L (136-145)
[2018-01-12] MEDS: METOPROLOL TARTRATE 25 MG TAB PO SCH (08:25)
[2018-01-12] MEDS: SODIUM CHLORIDE 1 GM TAB PO SCH (08:27)
[2018-01-12] MEDS: CEFDINIR 300 MG CAP PO SCH (08:32)
[2018-01-12] MEDS: HEPARIN SOD 5000 UNIT/0.5 ML CARP SQ SCH (08:32)
[2018-01-12] MEDS: PREGABALIN 25MG CAP PO SCH (08:40)
[2018-01-12] MEDS: RASPBERRY SYRUP 5 ML UDP PO SCH ×2 (08:42→13:06)
[2018-01-12] MEDS ORDERED: NON-FORMULARY MEDICATION (Biotin 1,000 MCG) PO SCH (09:00)
[2018-01-12] MEDS ORDERED: CALCITRIOL 0.25 MCG CAP PO SCH (09:00)
[2018-01-12] MEDS ORDERED: MAGNESIUM OXIDE 400 MG TAB PO SCH (09:00)
[2018-01-12] MEDS ORDERED: METHIMAZOLE 5 MG TAB PO SCH (09:00)
[2018-01-12] MEDS ORDERED: ETHACRYNIC ACID 25 MG TAB PO SCH (09:00)
[2018-01-12] MEDS ORDERED: LORATADINE 10 MG TAB PO SCH (09:00)
[2018-01-12] MEDS ORDERED: LEUCOVORIN CALCIUM 5 MG TAB PO SCH (09:00)
[2018-01-12] MEDS: VANCOMYCIN HCL 250 MG/5 ML SOLN PO SCH ×2 (09:13→13:06)
[2018-01-12] MEDS ORDERED: NTRSLP4 SL (12:11)
--- NOTE | 2018-01-12 12:12 | Discharge Instructions ---
Discharge Instructions Date of Service Jan 12, 2018. Admission Reason for Admission: Left Sided Chest Pain Discharge Discharge Diagnosis / Problem: Atypical chest pain as rule out acs by cardiac enzyme troponin negative x3 Discharge Goals Goal(s): Decrease discomfort, Improve function, Increase independence, Improve disease control, Improve nutritional status, Learn about illness, Diagnostic testing, Therapeutic intervention, Prevent Disease Progression, Specific goals Activity Recommendations Activity Limitations: resume your previous activity Lifting Limitations: none Exercise/Sports Limitations: none May Resume Sexual Activity: when tolerated . Instructions / Follow-Up Instructions / Follow-Up He was having chest pain, for now the blood testing and EKG was not remarkable, because you have history of heart disease you need to follow with cardiology in 3-5 days, Your recent dobutamine stress test on March 2016 was unremarkable per your report , your cardiology will decide would be the next steps to do I ordered nitroglycerin sublingual as needed for you for chest, prescription enclosed in this discharge You have under medical conditions such as neuropathy, HTN , CKD Stage 3, Hyperthyroidism, etc. you need to follow-up with your primary care physician for all of these medical conditions - you need to follow up with your primary care physician in 1 week, - take medication as instructed, never overdose or any misuse, or take with alcohol, because misuse of medicine may cause organ damage or , call your primary care physician if have questions of medicaitons. - call your primary care physician OR go to local emergency room if has any fever/chill, chest pain, shortness of breathing, nausea/vomiting/abdominal pain , facial droop/slurry speech/local weakness, or if has any questions. - fall precaution - diet as instructed - you need to follow up with your subspecialist, such as cardiology in 3-5 days , you should call to get appointment - you should understand that it is important to follow up the above instruction , and "not following the above instruction" may cause delayed or missed care of your medical conditions which may cause permanent organ damage and even . Current Hospital Diet Patient's current hospital diet: Renal Diet, AHA Diet (Heart Healthy) Discharge Diet Recommended Diet: AHA Diet (Heart Healthy), Renal Diet Pending Studies Studies pending at discharge: no Medical Emergencies . Who to Call and When: Medical Emergencies: If at any time you feel your situation is an emergency, please call 911 immediately. . Non-Emergent Contact Non-Emergency issues call your: Primary Care Provider . . "Provider Documentation" section prepared by Omid Acuña. .
--- NOTE | 2018-01-12 12:33 | Discharge Summary ---
Discharge Summary Date of Service Jan 12, 2018. Discharge Summary Admission Date: Jan 11, 2018 at 20:55 Discharge Date: Jan 12, 2018 Discharge Disposition: Home Principal Diagnosis: Atypical chest pain Problems/Secondary Diagnoses: neuropathy, HTN , CKD Stage 3, Hyperthyroidism, Immunizations: Have You Had Influenza Vaccine: Yes Influenza Vaccine Date: Jul 28, 2012 History of Tetanus Vaccine?: Yes Tetanus Immunization Date: March 27, 2009 History of Pneumococcal: Yes Pneumococcal Date: March 27, 2009 History of Hepatitis B Vaccine: No Procedures: No Consultations: No Medication Reconciliation New Medications: Nitroglycerin (Nitrostat) 0.4 Mg/1 Tab Subl 0.4 MG SL UD PRN for Chest Pain for 30 Days, #30 Continued Medications: Acetaminophen (Tylenol) 500 Mg Tab 1-2 TABS PO Q6 PRN for Pain, TAB Atorvastatin (Lipitor) 20 Mg Tab 20 MG PO HS Biotin (Biotin) 1,000 Mcg Tab 1000 MCG PO QAM Calcitriol (Rocaltrol Cap) 0.25 Mcg Cap 0.25 MCG PO QAM Cefdinir (Omnicef) 300 Mg Cap 300 MG PO Q12H, CAP STARTED 12/30/17 FOR 14 DAYS. Cholecalciferol (Vitamin D3) 1,000 Unit Tab 3000 UNIT PO DAILY for 90 Days, #27 TAB 3 Refills Cyanocobalamin (Cyanocobalamin) 1,000 Mcg/Ml Inj 1 DOSE INJ [id number] DUE ANYTIME. Denosumab (Prolia) 60 Mg/Ml Benita 60 MG INJ UD EVERY 6 MONTHS () 10 MG PO QID Ethacrynic Acid (Edecrin) 25 Mg Tab 100 MG PO QAM Fluocinolone Acetonide (Otic) (Fluocinolone Acetonide) 0.01 % Oil 5 DROPS OTL DAILY Leucovorin Calcium (Leucovorin Calcium) 5 Mg Tab 5 MG PO DAILY Lisinopril (Lisinopril) 10 Mg Tab 10 MG PO HS Loratadine (Claritin) 10 Mg Tab 10 MG PO QAM Magnesium Oxide (Magnesium) 250 Mg Tab 250 MG PO QAM Methimazole (Methimazole ) 5 Mg Tab 2.5 MG PO QAM 1/2 TABLET DOSE Metoprolol Tartrate (Lopressor) (Lopressor) 25 Mg Tab 12.5 MG PO BID 1/2 TABLET DOSE Mometasone Furoate (Nasal) (Mometasone Furoate) 50 Mcg/Act Spr 1 SPRAY ROBIN DAILY Multiple Vitamins W/ Minerals (Preservision Areds 2) 1 Cap Cap 1 CAP PO BID Naproxen (Aleve) 220 Mg Tab 220 MG PO PRN UD, TAB Peg [id number] Bicarb-Sod Ch (Golytely) 1 Benita Benita 1 DOSE PO DIRECTED PRN for Constipation Polyethylene Glycol 3350 (Miralax) 1 Pow Pow 17 GM PO DAILY PRN for Constipation, #255 GM Prednisone (Prednisone) 5 Mg Tab 5 MG PO QAM Pregabalin (Lyrica) 25 Mg Cap 25 MG PO BID, CAP Sodium Chloride (Sodium Chloride) 1 Gm Tab 1 GM PO BID Tramadol (Ultram) 50 Mg Tab 50 MG PO Q8H PRN for Pain, TAB Vancomycin Hcl (Vancomycin) 250 Mg Cap 250 MG PO QID STARTED 01/02/18 FOR 14 DAYS. Discharge Exam Doing well, sitting up, conversational, speaking loudly, no complaint, no any episodes of chest pain, report right lower extremity possible more edema than left lower extremity, Review of Systems: Constitutional: No fever, No chills, No sweats, No weight loss, No weakness , No fatigue, No problem reported Eyes: No worsening of vision, No eye pain, No redness, No discharge, No diplopia, No problem reported ENT: No hearing loss, No unusual epistaxis, No nasal symptoms, No sore throat, No tinnitus, No dental problems, No trouble swallowing, No problem reported Respiratory: No cough, No sputum, No wheezing, No shortness of breath, No dyspnea on exertion, No dyspnea at rest, No hemoptysis, No problem reported Cardiovascular: No chest pain, No orthopnea, No PND, No edema, No claudication, No palpitations, No problem reported Abdomen: No pain, No nausea, No vomiting, No diarrhea, No constipation, No GI bleeding, No problem reported Genitourinary - Female: No dysuria, No urinary frequency, No urinary urgency , No urinary incontinence, No urinary retention, No hematuria, No dysmenorrhea, No menorrhagia, No metrorrhagia, No rash, No vaginal bleeding, No vaginal discharge, No vaginal itching, No vulvodynia, No , No problem reported Neurologic: No memory loss, No paralysis, No weakness, No numbness/tingling , No vertigo, No balance problems, No problem reported Psychiatric: No depression symptoms, No anhedonism, No anxiety, No insomnia , No substance abuse, No problem reported Endocrine: No fatigue, No excessive thirst, No excessive urination, No problem reported Hematologic / Lymphatic: No abnormal bleeding/bruising, No clotting problems , No swollen lymph nodes, No night sweats, No problem reported Integumentary: No rash, No itch, No new/changing skin lesions, No color change, No bleeding, No problem reported Physical Exam: General Appearance: WD/WN, no apparent distress Eyes: normal inspection, PERRL, EOMI ENT: normal ENT inspection, hearing grossly normal Neck: supple, no adenopathy Respiratory/Chest: chest non-tender, + decreased breath sounds Cardiovascular: regular rate, rhythm, no edema, no gallop, no JVD, no murmur , normal peripheral pulses Abdomen / GI: normal bowel sounds, non tender, soft, no organomegaly, no pulsatile mass Extremities: normal inspection, no calf tenderness, normal capillary refill , no pedal edema, normal range of motion, + pertinent finding (Bilateral lower extremities trace edema, right lower extremity no obviousswelling than left) Neurologic/Psychiatric: 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 she reported has chest pain that started at 6pm yesterday evening, she was sitting in her wheelchair this evening when she had sudden left sided shoulder pain that was sharp and 10/10, radiate down her left arm and over the left side of her chest. The patient also appreciates being mildly diaphoretic and short of breath with the episode. This discomfort lasted approximately 2 minutes. After arriving to the emergency nose she has no more chest pain,, EKG and Troponin times reset have appeared normal, according to patients sinus symptom report, I feel patient has a precollege atypical chest pain, possible intermittent risk for ACS, EKG was reviewed and was not remarkable, Patient has history of dobutamine stress test which was done on March 2016. Per patient report she was told unremarkable. I discussed with patient about options of NextStep which include stay in the hospital to have a stress test tomorrow , or discharge to home today with follow-up with cardiology in 3-5 days and cardiology will decide outpatient stress test or not, patient is favor second choice, I feel it is fair. We will continue patient on the medication she was taking at home which include statin, beta-kay, aspirin, I added nitroglycerin for chest pain as needed, i advice patient to follow-up with PCP for all of her other medical conditions , continue current medications for her other medical conditions, patient agreed Patient was discharged home today in stable condition Instructions / Follow-Up you was having chest pain, for now the blood testing and EKG was not remarkable , because you have history of heart disease you need to follow with cardiology in 3-5 days, Your recent dobutamine stress test on March 2016 was unremarkable per your report , your cardiology will decide would be the next steps to do I ordered nitroglycerin sublingual as needed for you for chest, prescription enclosed in this discharge You have under medical conditions such as neuropathy, HTN , CKD Stage 3, Hyperthyroidism, etc. you need to follow-up with your primary care physician for all of these medical conditions - you need to follow up with your primary care physician in 1 week, - take medication as instructed, never overdose or any misuse, or take with alcohol, because misuse of medicine may cause organ damage or , call your primary care physician if have questions of medicaitons. - call your primary care physician OR go to local emergency room if has any fever/chill, chest pain, shortness of breathing, nausea/vomiting/abdominal pain , facial droop/slurry speech/local weakness, or if has any questions. - fall precaution - diet as instructed - you need to follow up with your subspecialist, such as cardiology in 3-5 days , you should call to get appointment - you should understand that it is important to follow up the above instruction , and "not following the above instruction" may cause delayed or missed care of your medical conditions which may cause permanent organ damage and even . Total Time Spent: Less than 30 minutes This includes examination of the patient, discharge planning, medication reconciliation, and communication with other providers. Discharge Instructions Please refer to the electronic Patient Visit Report (Discharge Instructions) for additional information. Additional Copies To RV. Mariano MD
--- NOTE | 2018-01-12 16:30 | ECHOCARDIOGRAM REPORT ---
*NOTICE TO RECEIVING REPUBLICAN AGENCY This information is strictly Confidential and protected under [place] law. [place] law prohibits you from making any further disclosure of this information unless further disclosure is expressly permitted by the written consent of the person to whom it pertains or is authorized by law. A general authorization for the release of medical or other information is not sufficient for this purpose. Hospital accepts no responsibility if the information is made available to any other person, INCLUDING THE PATIENT. Interpretation Summary * Name: EM LIM Study Date: 01/12/2018 06:51 AM BP: 113/48 mmHg * Patient Location: [facility] HR: 62 * : 1935 (M/d/yyyy) Gender: Female Height: 65 in * Age: 82 yrs Ethnicity: [place] Weight: 180 lb * Ordering Physician: Christian Francois * Referring Physician: Self, Referred * Performed By: Mónica Carnes RDCS * * Reason For Study: Chest Pain * BSA: 1.9 m2 * Normal biventricular systolic function. * Normal chamber dimensions. * Mild concentric left ventricular hypertrophy. * Class 1 left ventricular diastolic dysfunction. * Moderate mitral regurgitation. * Mild pulmonic regurgitation. * Trace tricuspid regurgitation. * Normal estimated right ventricular systolic pressure. * Probable elevated central venous pressure. * -- Conclusions -- * Aortic valve sclerosis moderate, without significant aortic valvular stenosis. Procedure Details * A complete two-dimensional transthoracic echocardiogram was performed (2D, M-mode, Doppler and color flow Doppler). Left Ventricle * The left ventricle is normal in size. * There is mild concentric left ventricular hypertrophy. * Ejection Fraction = 60-65%. * Left ventricular systolic function is normal. * A full diastolic examination was done with clinical findings of Class I diastolic dysfunction. * The left ventricular wall motion is normal. Right Ventricle * The right ventricular systolic function is normal as assessed by tricuspid annular plane systolic excursion (TAPSE) (normal >1.5 cm). Atria * The left atrial size is normal. * Right atrial size is normal. * No ASD detected; PFO is not assessed. Mitral Valve * The mitral valve is normal. * There is no mitral valve stenosis. * There is moderate mitral regurgitation. Tricuspid Valve * The tricuspid valve is normal. * There is no tricuspid stenosis. * There is trace tricuspid regurgitation. * Right ventricular systolic pressure is normal. Aortic Valve * The aortic valve is trileaflet. * Aortic valve sclerosis moderate, without significant aortic valvular stenosis. * No aortic regurgitation is present. Pulmonic Valve * The pulmonic valve leaflets are thin and pliable; valve motion is normal. * There is no pulmonic valvular stenosis. * Mild pulmonic valvular regurgitation. Great Vessels * The aortic root is normal size. * Mild atherosclerotic plaque(s) in the ascending aorta. Pericardium/Pleural * There is no pericardial effusion. Great Vessels * The inferior vena cava is mildly dilated. MMode 2D Measurements and Calculations IVSd 1.2 cm IVSs 1.2 cm LVIDd 3.7 cm LVIDs 2.2 cm LVPWd 1.2 cm LVPWs 1.2 cm IVS/LVPW 1.0 FS 40.7 % EDV(Teich) 58.3 ml ESV(Teich) 16.2 ml EF(Teich) 72.3 % EDV(cubed) 50.8 ml ESV(cubed) 10.6 ml EF(cubed) 79.1 % % IVS thick 1.9 % % LVPW thick 4.4 % LV mass(C)d 143.2 grams LV mass(C)dI 75.7 grams/m\S\2 LV mass(C)s 74.1 grams LV mass(C)sI 39.2 grams/m\S\2 SV(Teich) 42.1 ml SI(Teich) 22.3 ml/m\S\2 SV(cubed) 40.2 ml SI(cubed) 21.3 ml/m\S\2 Ao root diam 2.7 cm Ao root area 5.8 cm\S\2 ACS 1.5 cm LA dimension 3.5 cm asc Aorta Diam 3.5 cm LA/Ao 1.3 LVOT diam 1.9 cm LVOT area 2.8 cm\S\2 LVAd ap4 22.1 cm\S\2 LVLd ap4 7.2 cm EDV(MOD-sp4) 58.5 ml EDV(sp4-el) 57.8 ml LVAs ap4 12.7 cm\S\2 LVLs ap4 6.3 cm ESV(MOD-sp4) 22.4 ml ESV(sp4-el) 21.8 ml EF(MOD-sp4) 61.7 % EF(sp4-el) 62.2 % LVAd ap2 18.5 cm\S\2 LVLd ap2 6.9 cm EDV(MOD-sp2) 42.5 ml EDV(sp2-el) 42.1 ml LVAs ap2 8.5 cm\S\2 LVLs ap2 5.8 cm ESV(MOD-sp2) 11.1 ml ESV(sp2-el) 10.7 ml EF(MOD-sp2) 74.0 % EF(sp2-el) 74.7 % LVLd %diff -3.81 % EDV(MOD-bp) 50.6 ml LVLs %diff -7.87 % ESV(MOD-bp) 15.7 ml EF(MOD-bp) 69.0 % SV(MOD-sp4) 36.1 ml SI(MOD-sp4) 19.1 ml/m\S\2 SV(MOD-sp2) 31.5 ml SI(MOD-sp2) 16.6 ml/m\S\2 SV(MOD-bp) 34.9 ml SI(MOD-bp) 18.5 ml/m\S\2 SV(sp4-el) 36.0 ml SI(sp4-el) 19.0 ml/m\S\2 SV(sp2-el) 31.5 ml SI(sp2-el) 16.6 ml/m\S\2 Doppler Measurements and Calculations MV E max samantha 94.0 cm/sec MV A max samantha 96.6 cm/sec MV E/A 0.97 MV dec time 0.19 sec Ao V2 max 217.2 cm/sec Ao max PG 18.9 mmHg Ao max PG (full) 14.5 mmHg Ao V2 mean 140.7 cm/sec Ao mean PG 9.1 mmHg Ao mean PG (full) 7.0 mmHg Ao V2 VTI 50.8 cm MCKINLEY(I,A) 1.5 cm\S\2 MCKINLEY(I,D) 1.5 cm\S\2 MCKINLEY(V,A) 1.4 cm\S\2 MCKINLEY(V,D) 1.4 cm\S\2 LV V1 max PG 4.4 mmHg LV V1 mean PG 2.1 mmHg LV V1 max 104.4 cm/sec LV V1 mean 65.7 cm/sec LV V1 VTI 26.8 cm MR max samantha 567.7 cm/sec MR max PG 128.9 mmHg MR mean samantha 402.5 cm/sec MR mean PG 76.3 mmHg MR VTI 223.6 cm SV(Ao) 293.5 ml SI(Ao) 155.2 ml/m\S\2 SV(LVOT) 76.0 ml SI(LVOT) 40.2 ml/m\S\2 PA V2 max 84.6 cm/sec PA max PG 2.9 mmHg PI max samantha 144.1 cm/sec PI max PG 8.3 mmHg PI dec slope 66.9 cm/sec\S\2 PI P1/2t 630.8 msec TR max samantha 215.2 cm/sec
== END 2018-01-12 13:50 | disposition home or self-care (01) ==
LOC: EDBD 18:41 → C.EDB 18:42 → C.2E 20:55 → EDBEDREQ 20:58 → ENRESERV 21:04
PROVIDERS: ADMIT Student in an Organized Health Care Education/Training Program; ATTEND Hospitalist
DX: R07.89 Other chest pain (principal); G62.9 Polyneuropathy, unspecified; I13.0 Hypertensive heart and chronic kidney disease with heart failure and stage 1 through stage 4 chronic kidney disease, or unspecified chronic kidney disease; N18.4 Chronic kidney disease, stage 4 (severe); I50.9 Heart failure, unspecified; E05.90 Thyrotoxicosis, unspecified without thyrotoxic crisis or storm; E21.3 Hyperparathyroidism, unspecified; E53.8 Deficiency of other specified B group vitamins; R91.1 Solitary pulmonary nodule; E78.5 Hyperlipidemia, unspecified; I25.10 Atherosclerotic heart disease of native coronary artery without angina pectoris; M81.0 Age-related osteoporosis without current pathological fracture; H91.90 Unspecified hearing loss, unspecified ear; M48.00 Spinal stenosis, site unspecified; F32.9 Major depressive disorder, single episode, unspecified; Z66 Do not resuscitate; Z79.52 Long term (current) use of systemic steroids; Z86.19 Personal history of other infectious and parasitic diseases; Z87.440 Personal history of urinary (tract) infections; Z90.3 Acquired absence of stomach [part of]; Z90.710 Acquired absence of both cervix and uterus; Z90.49 Acquired absence of other specified parts of digestive tract; Z87.891 Personal history of nicotine dependence; Z88.2 Allergy status to sulfonamides; Z88.1 Allergy status to other antibiotic agents; Z88.8 Allergy status to other drugs, medicaments and biological substances; Z82.49 Family history of ischemic heart disease and other diseases of the circulatory system

== ENCOUNTER 2018-01-26 02:55 | Inpatient (IN) | payer BC, OTHER ==
[2018-01-25 06:45] VITALS: BP 107/52; PULSE 74; TEMP 35.9; O2SAT 95; BMI 32.0
[2018-01-26] VITALS (12 sets, daily range): BP systolic 95–137; BP diastolic 39–72; PULSE 64–81; TEMP 35.9–36.6; O2SAT 98–100
[~2018-01-26] VITALS: Ht 154.9 cm; Wt 74.6 kg
[~2018-01-26 02:55] MED LIST changes: -ATV5 PO; +CEFD1CAP14 PO; -CLC100 PO; -CYM/30 PO; -DLD/2 PO; -GABA-112 PO; -GUAI1TAB55 PO; -LDDP5 TD; -MRLP17X PO; +NTRSLP4 SL; +PEGSOL8 PO; +POLY335019 PO; +PREG1CAP36 PO; +SDMC1 PO; +TRAM-10 PO; +VANC1CAP3 PO
--- NOTE | 2018-01-26 03:15 | EMERGENCY ROOM VISIT NOTE ---
History Report prepared by Yovanny: Mati Shin Under the Supervision of: Dr. Ariana Tang D.O. First contact with patient: 03:07 Chief Complaint: ABDOMINAL PAIN Stated Complaint: ILLNESS/NAUSEA/VOMITTING/DIARRHEA Nursing Triage Summary: patient presents with c/o bilateral lower quadrant pain along with nausea, vomiting, and diarrhea. patient told EMS symptoms began last night after eating a steak and mushroom dinner around 0. patient refused IV en route to hospital per EMS and patient had a low BP reported by EMS as 83/40. History of Present Illness The patient is an 82 year old female who presents to the Emergency Room with complaints of constant nausea, vomiting, and diarrhea beginning two hours ago. The patient states she ate three ounces of steak and some mushrooms for dinner this evening. She reports 45 minutes after that her symptoms began. The patient notes she prepared the steak herself, straight from the freezer, and it was well done. She states she has a history of three previous episodes of ischemic colitis, and each episode has started like this. The patient reports her blood pressure always goes low and it is difficult to get it back up. She has required ICU admission for these previous episodes. She notes the last episode was in 2011, and it is considered to be a chronic condition now. The patient's son states she has a history of septic shock last summer from C-diff that was trapped inside an ileus. She reports she has had a central line in her neck before. The patient denies a history of an [place] and chest pain. Source of History: patient Onset: 2 hours ago Quality: other (nausea, vomiting, diarrhea) Timing: constant Associated Symptoms: No chest pain Note: Associated symptoms: low blood pressure Review of Systems See HPI for pertinent positives & negatives. A total of 10 systems reviewed and were otherwise negative. Past Medical & Surgical Medical Problems: (1) Appendectomy (2) Benign hypertension (3) C DIFF POA (4) Cholecystectomy (5) Chronic congestive heart failure (6) Colitis (7) Colonoscopy (8) Compression fracture (9) Depression (10) dextroscoliosis (11) E COLI UTI POA (12) Gastroesophageal reflux disease (13) Hyperlipidemia (14) Hysterectomy (15) orthopedic surgery (16) Osteoporosis (17) Pancreatic lesion (18) PERSONAL HISTORY OF PEPTIC ULCER DISEASE (19) Pyelonephritis (20) renal disease (21) Sepsis (22) Septic shock (23) Vertigo Family History Cancer Gallbladder disease Heart disease Hypertension Social History Smoking Status: Never Smoker Alcohol Use: none Drug Use: none Marital Status: Housing Status: lives with family Occupation Status: retired Current/Historical Medications Scheduled , 10 MG PO QID Atorvastatin (Lipitor), 20 MG PO HS Biotin (Biotin), 1,000 MCG PO QAM Calcitriol (Rocaltrol Cap), 0.25 MCG PO QAM Cholecalciferol (Vitamin D3), 3,000 UNIT PO DAILY Cyanocobalamin (Cyanocobalamin), 1 DOSE INJ [id number] Denosumab (Prolia), 60 MG INJ UD Ethacrynic Acid (Edecrin), 100 MG PO QAM Fluocinolone Acetonide (Otic) (Fluocinolone Acetonide), 5 DROPS OTL DAILY Leucovorin Calcium (Leucovorin Calcium), 5 MG PO DAILY Lisinopril (Lisinopril), 10 MG PO HS Loratadine (Claritin), 10 MG PO QAM Magnesium Oxide (Magnesium), 250 MG PO QAM Methimazole (Methimazole ), 2.5 MG PO QAM Metoprolol Tartrate (Lopressor) (Lopressor), 12.5 MG PO BID Mometasone Furoate (Nasal) (Mometasone Furoate), 1 SPRAY ROBIN DAILY Multiple Vitamins W/ Minerals (Preservision Areds 2), 1 CAP PO BID Naproxen (Aleve), 220 MG PO PRN UD Prednisone (Prednisone), 5 MG PO QAM Pregabalin (Lyrica), 25 MG PO BID Sodium Chloride (Sodium Chloride), 1 GM PO BID Scheduled PRN Acetaminophen (Tylenol), 1-2 TABS PO Q6 PRN for Pain Nitroglycerin (Nitrostat), 0.4 MG SL UD PRN for Chest Pain Peg [id number] Bicarb-Sod Ch (Golytely), 1 DOSE PO DIRECTED PRN for Constipation Polyethylene Glycol 3350 (Miralax), 17 GM PO DAILY PRN for Constipation Tramadol (Ultram), 50 MG PO Q8H PRN for Pain Allergies Coded Allergies: Adhesives (Verified Allergy, Severe, BLISTERING, 01/11/18) PAPER TAPE CAUSES SEVERE BLISTERING Cefuroxime (Verified Allergy, Unknown, INEFFECTIVE, 01/11/18) Ciprofloxacin (Verified Allergy, Unknown, INEFFECTIVE, 01/11/18) Erythromycin (Verified Allergy, Unknown, SEVERE VOMITING, 01/11/18) Furosemide (Verified Allergy, Unknown, HIVES, SULFA ALLERGY TO LOOP DIURETICS, 01/11/18) Hydrochlorothiazide (Verified Allergy, Unknown, HIVES, 01/11/18) Levofloxacin (Verified Allergy, Unknown, INEFFECTIVE, 01/11/18) Metoclopramide (Verified Allergy, Unknown, anxiety attacks, 01/11/18) Sulfa Antibiotics (Verified Allergy, Unknown, HIVES AND ANAPHYLAXIS, ) Metronidazole (Verified Adverse Reaction, Severe, Neuropathy, 01/11/18) Meperidine (Verified Adverse Reaction, Unknown, INEFFECTIVE FOR PT, 01/11/18 ) INAFFECTIVE FOR PATIENT Uncoded Allergies: all diuretics (Allergy, Severe, throat swells, 06/10/17) Physical Exam Vital Signs Date Time Temp Pulse Resp B/P (MAP) Pulse Ox O2 Delivery O2 Flow Rate FiO2 01/26/18 05:01 68/46 01/26/18 05:00 67 15 01/26/18 04:46 75/40 01/26/18 04:45 66 22 91 01/26/18 04:32 35.0 66 20 86/45 92 Room Air 01/26/18 04:31 86/35 01/26/18 04:30 65 28 01/26/18 04:20 59 19 79/39 01/26/18 04:15 60 16 93 01/26/18 04:12 54/37 01/26/18 04:10 59 17 92 01/26/18 04:05 58 18 77/47 96 01/26/18 04:00 58 14 86/39 01/26/18 03:58 82/43 01/26/18 03:50 60 14 01/26/18 03:43 72/42 01/26/18 03:35 62 18 01/26/18 03:34 59/43 01/26/18 03:30 62 25 01/26/18 03:25 68 18 01/26/18 03:20 72 19 01/26/18 03:18 Room Air 01/26/18 03:15 69 25 3/22/18 03:10 68 17 01/26/18 03:05 69 24 01/26/18 03:01 61/45 01/26/18 03:00 69 17 99 01/26/18 02:58 70 20 61/45 95 Room Air Physical Exam HEENT: Head - normocephalic and atraumatic Pupils are equal, round, and reactive to light. Extraocular eye muscles are intact, and sclera are anicteric. Nose - moist nasal mucosa without discharge. Mouth - moist buccal mucosa. Oropharynx is nonerythematous and there is no tonsillar exudate or edema noted. Neck: Supple; no JVD, nuchal rigidity, cervical lymphadenopathy. Heart: Regular rate and rhythm. There is a normal S1 and S2 with no murmurs, clicks, or gallops appreciated. Lungs: Clear to auscultation bilaterally with no wheezes, rales, or rhonchi. Abdomen: Soft, tender in the right and left lower quadrants, nondistended, with good bowel sounds. There are no palpable pulsatile masses or hepatosplenomegaly. There is no guarding, rigidity, or rebound noted. Extremities: No evidence of cyanosis, clubbing, or edema. There are easily palpable peripheral pulses. Skin: Pale, warm and dry with good turgor and no rashes. Medical Decision & Procedures Laboratory Results 01/26/18 03:43 Red Blood Count 3.64, Mean Corpuscular Volume 99.5, Mean Corpuscular Hemoglobin 32.4, Mean Corpuscular Hemoglobin Concent 32.6, Mean Platelet Volume 10.2, Neutrophils (%) (Auto) 78.3, Lymphocytes (%) (Auto) 14.5, Monocytes (%) (Auto) 5.0, Eosinophils (%) (Auto) 1.1, Basophils (%) (Auto) 0.2, Neutrophils # (Auto) 13.30, Lymphocytes # (Auto) 2.47, Monocytes # (Auto) 0.85, Eosinophils # (Auto) 0.19, Basophils # (Auto) 0.03 01/26/18 03:43 Test 01/26/18 03:43 01/26/18 03:45 White Blood Count 17.00 K/uL (4.8-10.8) Red Blood Count 3.64 M/uL (4.2-5.4) Hemoglobin 11.8 g/dL (12.0-16.0) Hematocrit 36.2 % (37-47) Mean Corpuscular Volume 99.5 fL (80-100) Mean Corpuscular Hemoglobin 32.4 pg (25-34) Mean Corpuscular Hemoglobin Concent 32.6 g/dl (32-36) Platelet Count 269 K/uL (130-400) Mean Platelet Volume 10.2 fL (7.4-10.4) Neutrophils (%) (Auto) 78.3 % Lymphocytes (%) (Auto) 14.5 % Monocytes (%) (Auto) 5.0 % Eosinophils (%) (Auto) 1.1 % Basophils (%) (Auto) 0.2 % Neutrophils # (Auto) 13.30 K/uL (1.4-6.5) Lymphocytes # (Auto) 2.47 K/uL (1.2-3.4) Monocytes # (Auto) 0.85 K/uL (0.11-0.59) Eosinophils # (Auto) 0.19 K/uL (0-0.5) Basophils # (Auto) 0.03 K/uL (0-0.2) RDW Standard Deviation 49.5 fL (36.4-46.3) RDW Coefficient of Variation 13.6 % (11.5-14.5) Immature Granulocyte % (Auto) 0.9 % Immature Granulocyte # (Auto) 0.16 K/uL (0.00-0.02) Prothrombin Time 10.9 SECONDS (9.0-12.0) Prothromb Time International Ratio 1.0 (0.9-1.1) Activated Partial Thromboplast Time 26.0 SECONDS (21.0-31.0) Partial Thromboplastin Ratio 1.0 Anion Gap 10.0 mmol/L (3-11) Est Creatinine Clear Calc Drug Dose 17.2 ml/min Estimated GFR () 21.1 Estimated GFR (Non- 18.2 BUN/Creatinine Ratio 33.5 (10-20) Calcium Level 7.9 mg/dl (8.5-10.1) Total Bilirubin 0.5 mg/dl (0.2-1) Direct Bilirubin 0.2 mg/dl (0-0.2) Aspartate Amino Transf (AST/SGOT) 21 U/L (15-37) Alanine Aminotransferase (ALT/SGPT) 20 U/L (12-78) Alkaline Phosphatase 66 U/L (45-117) Troponin I < 0.015 ng/ml (0-0.045) Total Protein 5.5 gm/dl (6.4-8.2) Albumin 2.7 gm/dl (3.4-5.0) Globulin 2.8 gm/dl (2.5-4.0) Albumin/Globulin Ratio 1.0 (0.9-2) Lipase 446 U/L (73-393) Bedside Lactic Acid Arterial 1.71 mmol/L (0.36-1.25) Laboratory results per my review. Medications Administered Medications (Trade) Dose Ordered Sig/Herminia Route Start Time Stop Time Status Last Admin Dose Admin Sodium Chloride 1,000 ml @ 999 mls/hr Q1H1M STAT IV 01/26/18 03:40 01/26/18 04:40 DC 01/26/18 04:01 999 MLS/HR Sodium Chloride 1,000 ml @ 999 mls/hr Q1H1M IV 01/26/18 05:00 02/25/18 04:59 01/26/18 05:26 999 MLS/HR Fentanyl Citrate (Fentanyl Inj) 50 mcg NOW STAT IV 01/26/18 05:01 01/26/18 05:02 DC 01/26/18 05:10 50 MCG Procedure 0340: Ordered Sodium Chloride 1000 ml @ 999 mls/hr IV. 0500: Ordered Sodium Chloride 1000 ml @ 999 mls/hr IV. 0501: Ordered Fentanyl Citrate 50mcg IV ECG Per My Interpretation Indication: vomiting Rate (beats per minute): 67 Rhythm: normal sinus Findings: 1st degree AV block, ST elevation (1mm elevation in lead II and AVF) , no ectopy, other (Up-sloping ST segments throughout) Comparison ECG Date: 01/12/18 Change: Slight change in the ST slope. ED Course 0307: The patient was evaluated in room B12B. A complete history and physical examination were performed. Nursing notes and previous electronic medical records were reviewed. IV lock was established and labs were drawn as above. The patient was an extremely hard IV stick but staff was able to get 2 peripheral IVs. The patient was noted to be hypotensive and crystalloid fluid boluses were ordered. 0340: Ordered Sodium Chloride 1000 ml @ 999 mls/hr IV. I offered the patient pain medication but she stated that she was comfortable at this time. A 12- lead EKG was obtained and initially read out as an acute STEMI. There were some very mild ST segment elevations in the inferior leads. 0344: I reevaluated the patient. Her blood pressure is up to 74/42. Her abdominal pain is slightly better. 0433: I discussed the patient's case with Dr. Flanagan of the [facility] Hospitalist Service. The patient will be evaluated for further management and care. I spoke with Dr. Cowan at the bedside. We contacted the seed sales manager-Servando Bautista PA-C will evaluate the patient. 0500: The patient became hypotensive again. I ordered Sodium Chloride 1000 ml @ 999 mls/hr IV. I did not feel that she was hemodynamically stable enough to go for CT scan. Her blood pressure had come up slightly. She complained of worsening abdominal pain. I 0501: Ordered Fentanyl Citrate 50mcg IV Medical Decision The patient is an 82 year old female who presents to the ED with nausea, vomiting, and diarrhea. Differential diagnosis includes recurrent ischemic colitis, c-diff colitis, sepsis, STEMI. Lab results show: WBC of 17, hemoglobin of 11.8, lactic acid of 1.7, BUN of 80, creatinine of 2.4, glucose of 117, troponin negative, lipase of 446, normal coags. This is an 82-year-old female patient presents to the emergency department with a very sudden onset of severe diffuse abdominal pain after eating steak and mushrooms. Patient has a recurrent history of ischemic colitis. I have cared for her in the past. This is typically associated with extreme episodes of hypotension. The patient presented clinically exactly the same way she had presented last summer when I evaluated her. We had a brief conversation about the patient's wishes as she has previously required pressor therapy. She requested the same treatment as in the past. Her blood pressure initially seemed to respond to 2 L of normal saline solution. But then had recurrent episodes of hypotension. Dr. Zepeda was caring for the patient at that time and started her on pressors. The patient was more comfortable after receiving the IV analgesia. She will go to the CAT scanner and then directly to the ICU. I kept the patient's son abreast of the situation. Consults Time Called: [phone] Consulting Physician: Dr. Flanagan of the [facility] Hospitalist Service Returned Call: [phone] I discussed the patient's case with Dr. Flanagan of the [facility] Hospitalist Service. The patient will be evaluated for further management and care. Impression Primary Impression: Ischemic colitis Additional Impression: Hypotension Critical Care I have personally spent greater than 60 minutes of critical care time in the direct management of this patient. This includes bedside care, interpretation of diagnostic studies, and testing, discussion with consultants, patient, and family members, and other required patient management activities. This 60 minutes is in excess of all separately billable procedures. Scribe Attestation The scribe's documentation has been prepared under my direction and personally reviewed by me in its entirety. I confirm that the note above accurately reflects all work, treatment, procedures, and medical decision making performed by me. Departure Information Dispostion Being Evaluated By Hospitalist Referrals RV. Mariano MD (PCP) Patient Instructions My [facility] Problem Qualifiers Additional Impression: Hypotension Hypotension type: other hypotension type Qualified Codes: I95.89 - Other hypotension
[2018-01-26] MEDS ORDERED: SODIUM CHLORIDE 0.9% 1000ML 1,000 ML IV STA (03:40)
[2018-01-26 03:55] LABS: BASO % 0.2 %; BASO ABS # 0.03 K/uL (0-0.2); EOS % 1.1 %; EOS ABS # 0.19 K/uL (0-0.5); HEMATOCRIT 36.2 % (37-47); HEMOGLOBIN 11.8 g/dL (12.0-16.0); IG# 0.16 K/uL (0.00-0.02); LYMPH % 14.5 %; LYMPH ABS # 2.47 K/uL (1.2-3.4); MEAN CELL VOLUME 99.5 fL (80-100); MEAN CORPUSCULAR HEMOGLOBIN 32.4 pg (25-34); MEAN CORPUSCULAR HGB CONC 32.6 g/dl (32-36); MEAN PLATELET VOLUME 10.2 fL (7.4-10.4); MONO ABS # 0.85 K/uL (0.11-0.59); NEUT % 78.3 %; PLATELET COUNT 269 K/uL (130-400); RED CELL DISTRIBUTION WIDTH CV 13.6 % (11.5-14.5); RED CELL DISTRIBUTION WIDTH SD 49.5 fL (36.4-46.3)
[2018-01-26 04:14] LABS: ALBUMIN 2.7 gm/dl (3.4-5.0); ALT/SGPT 20 U/L (12-78); AST/SGOT 21 U/L (15-37); BLOOD UREA NITROGEN 80 mg/dl (7-18); CALCIUM 7.9 mg/dl (8.5-10.1); CARBON DIOXIDE 22 mmol/L (21-32); GLUCOSE 117 mg/dl (70-99); LIPASE 446 U/L (73-393); SODIUM 139 mmol/L (136-145)
[2018-01-26 04:19] LABS: ALKALINE PHOSPHATASE 66 U/L (45-117); TOTAL PROTEIN 5.5 gm/dl (6.4-8.2)
[2018-01-26] MEDS ORDERED: FENTANYL CITRATE INJ 50 MCG/1 ML 2 ML VIAL IV STA (05:01)
[2018-01-26] MEDS ORDERED: VANCOMYCIN IV 1,000 MG in SODIUM CHLORIDE 0.9% 250ML 250 ML IV STA (05:04)
[2018-01-26] MEDS ORDERED: ALBUMIN HUMAN 25% 12.5 GM/50 ML VIAL IV STA (05:07)
[2018-01-26] MEDS ORDERED: PIPERACILL/TAZOBAC CONSULT ACTIVE PRN ×2 (05:15→06:15)
[2018-01-26] MEDS ORDERED: VANCOMYCIN HCL 125 MG/2.5ML SOLN PO SCH ×2 (05:15→08:00)
[2018-01-26] MEDS ORDERED: PIPERACILL/TAZOBAC IV 4.5 GM in DEXTROSE 5% 100ML 100 ML IV SCH (05:15)
[2018-01-26] MEDS ORDERED: VANCOMYCIN CONSULT ACTIVE PRN ×2 (05:15→06:15)
[2018-01-26] MEDS ORDERED: VANCOMYCIN IV 1,500 MG in SODIUM CHLORIDE 0.9% 500ML 500 ML IV STA (05:16)
[2018-01-26] MEDS ORDERED: NOREPINEPHRINE BIT INJ 8 MG in DEXTROSE 5% 500ML 500 ML IV STA (05:25)
[2018-01-26] MEDS: SODIUM CHLORIDE 0.9% 1000ML 1,000 ML IV SCH ×3 (05:26→07:01)
[2018-01-26] MEDS ORDERED: HYDROCORTISONE SOD SUCCINATE 100 MG/2 ML VIAL IV STA (05:27)
[2018-01-26] MEDS ORDERED: HYDROCORTISONE IV 100 MG in SYRINGE 0 ML IV SCH (05:30)
--- NOTE | 2018-01-26 05:32 | History and Physical ---
History & Physical Date & Time of Service: Jan 26, 2018 at 05:32 Chief Complaint: Illness/Nausea/Vomitting/Diarrhea Primary Care Physician: RV. Mariano MD History of Present Illness Source: patient, hospital records 82 yo F with pMHx of C. difficile colitis, sepsis secondary to ischemic colitis , HTN, and CKD presented to the ED with abdominal pain after eating dinner, associated with nausea, multiple episodes of emesis and diarrhea. She believes there to have been blood in the stool, but not in the vomitus. Her abdominal discomfort is described as a sharp pain in her LLQ. She is complaining of chills , dizziness/lightheadedness, fatigue, but is otherwise alert and responsive. She otherwise denies CP, palpitations, dyspnea, urinary symptoms, rashes. She denies recent travel, consumption of raw/undercooked foods, recent antibiotic use, or exposure to sick contacts with similar symptoms. In the ED, patient was found to have hypothermia, hypotension (SBP 50-60s), leukocytosis, mild anemia, lactic acidosis, and evidence of acute kidney injury with any significant electrolyte imbalance or liver function abnormalities. She was given a bear hugger for warmth, provided IVF, and the massage operator was consulted. ROS is unremarkable except as noted above. Past Medical/Surgical History Medical Problems: (1) Abdominal pain (2) Acute renal failure (3) Acute renal failure (4) Appendectomy (5) Back pain (6) Back pain (7) Benign hypertension (8) C DIFF POA (9) Cholecystectomy (10) Chronic congestive heart failure (11) Colitis (12) Colonoscopy (13) Compression fracture (14) Dehydration (15) Depression (16) dextroscoliosis (17) Dizziness (18) Dizziness (19) E COLI UTI POA (20) Gastroesophageal reflux disease (21) Hyperlipidemia (22) Hypotension (23) Hysterectomy (24) Ischemic colitis (25) Left sided chest pain (26) Musculoskeletal chest pain (27) orthopedic surgery (28) Osteoporosis (29) Pancreatic lesion (30) PERSONAL HISTORY OF PEPTIC ULCER DISEASE (31) Pyelonephritis (32) Rectal bleed (33) renal disease (34) Rib pain (35) Sepsis (36) Septic shock (37) uti, pyelo (38) uti, pyelo, acute on chronic renal failure (39) Vertigo (40) Vertigo (41) Weakness Family History Cancer Gallbladder disease Heart disease Hypertension Social History Smoking Status: Never Smoker Smokeless Tobacco Use: No Alcohol Use: none Drug Use: none Marital Status: Housing status: lives with family Occupational Status: retired Immunizations History of Influenza Vaccine: Yes Influenza Vaccine Date: Jul 28, 2012 History of Tetanus Vaccine?: Yes Tetanus Immunization Date: March 27, 2009 History of Pneumococcal: Yes Pneumococcal Date: March 27, 2009 History of Hepatitis B Vaccine: No Allergies Coded Allergies: Adhesives (Verified Allergy, Severe, BLISTERING, 01/11/18) PAPER TAPE CAUSES SEVERE BLISTERING Cefuroxime (Verified Allergy, Unknown, INEFFECTIVE, 01/11/18) Ciprofloxacin (Verified Allergy, Unknown, INEFFECTIVE, 01/11/18) Erythromycin (Verified Allergy, Unknown, SEVERE VOMITING, 01/11/18) Furosemide (Verified Allergy, Unknown, HIVES, SULFA ALLERGY TO LOOP DIURETICS, 01/11/18) Hydrochlorothiazide (Verified Allergy, Unknown, HIVES, 01/11/18) Levofloxacin (Verified Allergy, Unknown, INEFFECTIVE, 01/11/18) Metoclopramide (Verified Allergy, Unknown, anxiety attacks, 01/11/18) Sulfa Antibiotics (Verified Allergy, Unknown, HIVES AND ANAPHYLAXIS, ) Metronidazole (Verified Adverse Reaction, Severe, Neuropathy, 01/11/18) Meperidine (Verified Adverse Reaction, Unknown, INEFFECTIVE FOR PT, 01/11/18 ) INAFFECTIVE FOR PATIENT Uncoded Allergies: all diuretics (Allergy, Severe, throat swells, 06/10/17) Home Medications Scheduled , 10 MG PO QID Atorvastatin (Lipitor), 20 MG PO HS Biotin (Biotin), 1,000 MCG PO QAM Calcitriol (Rocaltrol Cap), 0.25 MCG PO QAM Cholecalciferol (Vitamin D3), 3,000 UNIT PO DAILY Cyanocobalamin (Cyanocobalamin), 1 DOSE INJ [id number] Denosumab (Prolia), 60 MG INJ UD Ethacrynic Acid (Edecrin), 100 MG PO QAM Fluocinolone Acetonide (Otic) (Fluocinolone Acetonide), 5 DROPS OTL DAILY Leucovorin Calcium (Leucovorin Calcium), 5 MG PO DAILY Lisinopril (Lisinopril), 10 MG PO HS Loratadine (Claritin), 10 MG PO QAM Magnesium Oxide (Magnesium), 250 MG PO QAM Methimazole (Methimazole ), 2.5 MG PO QAM Metoprolol Tartrate (Lopressor) (Lopressor), 12.5 MG PO BID Mometasone Furoate (Nasal) (Mometasone Furoate), 1 SPRAY ROBIN DAILY Multiple Vitamins W/ Minerals (Preservision Areds 2), 1 CAP PO BID Naproxen (Aleve), 220 MG PO PRN UD Prednisone (Prednisone), 5 MG PO QAM Pregabalin (Lyrica), 25 MG PO BID Sodium Chloride (Sodium Chloride), 1 GM PO BID Scheduled PRN Acetaminophen (Tylenol), 1-2 TABS PO Q6 PRN for Pain Nitroglycerin (Nitrostat), 0.4 MG SL UD PRN for Chest Pain Peg [id number] Bicarb-Sod Ch (Golytely), 1 DOSE PO DIRECTED PRN for Constipation Polyethylene Glycol 3350 (Miralax), 17 GM PO DAILY PRN for Constipation Tramadol (Ultram), 50 MG PO Q8H PRN for Pain Physical Exam Vital Signs Date Time Temp Pulse Resp B/P (MAP) Pulse Ox O2 Delivery O2 Flow Rate FiO2 01/26/18 04:32 35.0 66 20 86/45 92 Room Air 01/26/18 04:20 59 19 79/39 01/26/18 04:15 60 16 93 01/26/18 04:12 54/37 01/26/18 04:10 59 17 92 01/26/18 04:05 58 18 77/47 96 01/26/18 04:00 58 14 86/39 01/26/18 03:58 82/43 01/26/18 03:50 60 14 01/26/18 03:43 72/42 01/26/18 03:35 62 18 01/26/18 03:34 59/43 01/26/18 03:30 62 25 01/26/18 03:25 68 18 01/26/18 03:20 72 19 01/26/18 03:18 Room Air 01/26/18 03:15 69 25 01/26/18 03:10 68 17 01/26/18 03:05 69 24 01/26/18 03:01 61/45 01/26/18 03:00 69 17 99 01/26/18 02:58 70 20 61/45 95 Room Air General Appearance: + mild distress, + pertinent finding (appears weak) Head: normocephalic, atraumatic Eyes: normal inspection, sclerae normal ENT: hearing grossly normal Neck: supple Respiratory/Chest: normal breath sounds, no respiratory distress, no accessory muscle use Cardiovascular: regular rate, rhythm Abdomen/GI: normal bowel sounds, soft, + tenderness (across lower abdomen) Extremities/Musculoskelatal: no calf tenderness, no pedal edema Neurologic/Psych: alert, oriented x 3 Skin: normal color, warm/dry, no rash Diagnostics Laboratory Results Results Past 24 Hours Test 01/26/18 03:43 01/26/18 03:45 Range/Units White Blood Count 17.00 4.8-10.8 K/uL Red Blood Count 3.64 4.2-5.4 M/uL Hemoglobin 11.8 12.0-16.0 g/dL Hematocrit 36.2 37-47 % Mean Corpuscular Volume 99.5 80-100 fL Mean Corpuscular Hemoglobin 32.4 25-34 pg Mean Corpuscular Hemoglobin Concent 32.6 32-36 g/dl Platelet Count 269 130-400 K/uL Mean Platelet Volume 10.2 7.4-10.4 fL Neutrophils (%) (Auto) 78.3 % Lymphocytes (%) (Auto) 14.5 % Monocytes (%) (Auto) 5.0 % Eosinophils (%) (Auto) 1.1 % Basophils (%) (Auto) 0.2 % Neutrophils # (Auto) 13.30 1.4-6.5 K/uL Lymphocytes # (Auto) 2.47 1.2-3.4 K/uL Monocytes # (Auto) 0.85 0.11-0.59 K/uL Eosinophils # (Auto) 0.19 0-0.5 K/uL Basophils # (Auto) 0.03 0-0.2 K/uL RDW Standard Deviation 49.5 36.4-46.3 fL RDW Coefficient of Variation 13.6 11.5-14.5 % Immature Granulocyte % (Auto) 0.9 % Immature Granulocyte # (Auto) 0.16 0.00-0.02 K/uL Prothrombin Time 10.9 9.0-12.0 SECONDS Prothromb Time International Ratio 1.0 0.9-1.1 Activated Partial Thromboplast Time 26.0 21.0-31.0 SECONDS Partial Thromboplastin Ratio 1.0 Sodium Level 139 136-145 mmol/L Potassium Level 4.0 3.5-5.1 mmol/L Chloride Level 107 98-107 mmol/L Carbon Dioxide Level 22 21-32 mmol/L Anion Gap 10.0 3-11 mmol/L Blood Urea Nitrogen 80 7-18 mg/dl Creatinine 2.40 0.60-1.20 mg/dl Est Creatinine Clear Calc Drug Dose 17.2 ml/min Estimated GFR () 21.1 Estimated GFR (Non- 18.2 BUN/Creatinine Ratio 33.5 10-20 Random Glucose 117 70-99 mg/dl Calcium Level 7.9 8.5-10.1 mg/dl Total Bilirubin 0.5 0.2-1 mg/dl Direct Bilirubin 0.2 0-0.2 mg/dl Aspartate Amino Transf (AST/SGOT) 21 15-37 U/L Alanine Aminotransferase (ALT/SGPT) 20 12-78 U/L Alkaline Phosphatase 66 45-117 U/L Troponin I < 0.015 0-0.045 ng/ml Total Protein 5.5 6.4-8.2 gm/dl Albumin 2.7 3.4-5.0 gm/dl Globulin 2.8 2.5-4.0 gm/dl Albumin/Globulin Ratio 1.0 0.9-2 Lipase 446 73-393 U/L Bedside Lactic Acid Arterial 1.71 0.36-1.25 mmol/L Microbiology Results 01/26/18 Blood Culture, Received Pending 01/26/18 Blood Culture, Received Pending Impression Assessment and Plan 82 yo F with pMHx of C. difficile colitis, sepsis secondary to ischemic colitis , HTN, and CKD presented to the ED with abdominal pain after eating dinner, associated with nausea, multiple episodes of emesis and diarrhea. She believes there to have been blood in the stool, but not in the vomitus. Her abdominal discomfort is described as a sharp pain in her LLQ. She is complaining of chills , dizziness/lightheadedness, fatigue, but is otherwise alert and responsive. In the ED, patient was found to have hypothermia, hypotension (SBP 50-60s), leukocytosis, mild anemia, lactic acidosis, and evidence of acute kidney injury with any significant electrolyte imbalance or liver function abnormalities. She was given a bear hugger for warmth, provided IVF, and the massage operator was consulted. Septic shock likely secondary to ischemic colitis - Empiric antibiotics IV vancomycin and IV Zosyn - IVF NSS - Levophed to help maintain BP - CT abdo/pelv ordered for when patient is more stable - Gastroenterology consulted - Pain management H/o c.diff - Empiric treatment with PO vancomycin - Check stool for c.diff and stool cultures CORNELL on CKD - IVF as above - Avoid nephrotoxic drugs - Reddy in places, strict I/O's - Trend BMP HTN/HLD - Hold antihypertensives (metoprolol, lisinopril), maintain BP with Levophed - Continue atorvastatin Chronic steroid therapy - Received 100mg Solu-Cortef in the ED - Continue stress dose of steroids Anemia - Mild anemia on admission, likely hemoconcentrated - Check FOBT - Trend CBC Chronic pain/neuropathy - Continue tramadol and pregabalin Hyperthyroidism - Continue methimazole VTE ppx - Hep SC Attending addendum: I have physically seen this patient, have supervised the medical residents activities, and agree with the H&P unless as otherwise noted. Assessment and Plan: Septic shock/recurrent ischemic colitis 4th episode-- Admit to the ICU. Vancomycin IV and Zosyn IV. Levophed started in the ED and titrate to keep systolic blood pressure in the 80s or map 60-65. Normal saline for IV rehydration and pressure support. Given albumin [address] abdomen and pelvis without contrast to assess for possible perforation. Oral vancomycin to cover for possible recurrent C. difficile colitis. Consult gastroenterology. HTN/AK I on CKD-- On IV fluids as noted, serial CBC with differential, CMP and magnesium levels. Chronic steroid use-- Placed on stress dose steroids hydrocortisone 100 mg IV every 8 hours. Hyperthyroidism-- Methimazole. Advanced Directives Existing Advance Directive: No Existing Living Will: No Existing Power of Shipyard Painting Supervisor: No Resuscitation Status VTE Prophylaxis Will order VTE Prophylaxis: Yes Reason no Mechanical VTE Order: Refusal of treatment by pt Resident Tracking Resident Involvement: Resident Care Provided Care Provided: Adult [facility]
[2018-01-26] MEDS ORDERED: NOREPINEPHRINE BIT INJ 8 MG in DEXTROSE 5% 500ML 500 ML IV PRN (06:04)
[2018-01-26] MEDS ORDERED: ICU PROTOCOL FOR HYPERGLYCEMIA PRN (06:15)
[2018-01-26] MEDS ORDERED: FENTANYL CITRATE INJ 50 MCG/1 ML 2 ML VIAL IV PRN (06:15)
[2018-01-26] MEDS ORDERED: NITROGLYCERIN 0.4 MG SL PER TAB CHARGE SL PRN (06:15)
[2018-01-26] MEDS ORDERED: ACETAMINOPHEN IV 650 MG in EMPTY BAG 0 ML IV PRN (06:15)
[2018-01-26] MEDS ORDERED: ONDANSETRON INJ 2 MG/ML 2 ML VIAL IV PRN (06:15)
[2018-01-26] MEDS ORDERED: ALBUMIN HUMAN 25% 12.5 GM/50 ML VIAL IV ONE (06:30)
[2018-01-26] MEDS: NORMOSOL R 1,000 ML IV SCH ×2 (06:52→21:58)
--- NOTE | 2018-01-26 07:02 | Critical Care Consultation ---
Critical Care Consultation Date of Consultation: Jan 26, 2018. Attending Physician: Mathew Velasco M.D. Reason for Consultation: 82-year-old female with severe sepsis with septic shock secondary to likely GI source. Initially received aggressive IV fluid resuscitation without improvement in blood pressure. Eventually requiring vasopressors for blood pressure support. History of Present Illness Patient is an 82-year-old female with a significant past medical history of C. difficile colitis, sepsis secondary to ischemic colitis, hypertension, congestive heart failure, and chronic kidney disease who presented to the ER via EMS after developing nausea, vomiting, and diarrhea after a steak dinner this evening. Her symptoms developed approximately 45 minutes after her meal. She has had multiple episodes of diarrhea as well as vomiting. She has had nausea and lower abdominal discomfort. In the emergency department, the patient was hypotensive with pressures in the 50s-60s. She received a 1.5 L normal saline bolus without improvement in blood pressure. She was found to have a moderate leukocytosis of greater than 17,000. She is not anemic. She had no significant electrolyte derangement. She was found to have an AK I with BUN/creatinine of 80 and 2.40, respectively. Point of care lactic acid was elevated at 1.71. Liver enzymes are within normal limits. Cardiac enzymes were not elevated. Lipase is slightly elevated. I was contacted by emergency department staff for evaluation of the patient for placement in the unit secondary to fragile hemodynamic state in the current episode of sepsis. On evaluation, the patient is resting comfortably. She clinically appears fragile and weak. She complains of lower abdominal discomfort. She reports feeling very tired. She denies any headaches, dizziness, shortness of breath, chest pain, palpitations, hematemesis, hematochezia, melena, hematuria, or dysuria. Patient denies any recent long distance travel, consumption of raw/undercooked foods, recent antibiotic use, or recent sick contacts. Past Medical/Surgical History Medical Problems: (1) Appendectomy (2) Benign hypertension (3) C DIFF POA (4) Cholecystectomy (5) Chronic congestive heart failure (6) Colitis (7) Colonoscopy (8) Compression fracture (9) Depression (10) dextroscoliosis (11) E COLI UTI POA (12) Gastroesophageal reflux disease (13) Hyperlipidemia (14) Hysterectomy (15) orthopedic surgery (16) Osteoporosis (17) Pancreatic lesion (18) PERSONAL HISTORY OF PEPTIC ULCER DISEASE (19) Pyelonephritis (20) renal disease (21) Sepsis (22) Septic shock (23) Vertigo Family History Cancer Gallbladder disease Heart disease Hypertension noncontributory Social History Smoking Status: Never Smoker Smokeless Tobacco Use: No Alcohol Use: none Drug Use: none Marital Status: Housing Status: lives with family Occupation Status: retired Allergies Coded Allergies: Adhesives (Verified Allergy, Severe, BLISTERING, 01/11/18) PAPER TAPE CAUSES SEVERE BLISTERING Cefuroxime (Verified Allergy, Unknown, INEFFECTIVE, 01/11/18) Ciprofloxacin (Verified Allergy, Unknown, INEFFECTIVE, 01/11/18) Erythromycin (Verified Allergy, Unknown, SEVERE VOMITING, 01/11/18) Furosemide (Verified Allergy, Unknown, HIVES, SULFA ALLERGY TO LOOP DIURETICS, 01/11/18) Hydrochlorothiazide (Verified Allergy, Unknown, HIVES, 01/11/18) Levofloxacin (Verified Allergy, Unknown, INEFFECTIVE, 01/11/18) Metoclopramide (Verified Allergy, Unknown, anxiety attacks, 01/11/18) Sulfa Antibiotics (Verified Allergy, Unknown, HIVES AND ANAPHYLAXIS, ) Metronidazole (Verified Adverse Reaction, Severe, Neuropathy, 01/11/18) Meperidine (Verified Adverse Reaction, Unknown, INEFFECTIVE FOR PT, 01/11/18 ) INAFFECTIVE FOR PATIENT Uncoded Allergies: all diuretics (Allergy, Severe, throat swells, 06/10/17) Home Medications Scheduled , 10 MG PO QID Atorvastatin (Lipitor), 20 MG PO HS Biotin (Biotin), 1,000 MCG PO QAM Calcitriol (Rocaltrol Cap), 0.25 MCG PO QAM Cholecalciferol (Vitamin D3), 3,000 UNIT PO DAILY Cyanocobalamin (Cyanocobalamin), 1 DOSE INJ [id number] Denosumab (Prolia), 60 MG INJ UD Ethacrynic Acid (Edecrin), 100 MG PO QAM Fluocinolone Acetonide (Otic) (Fluocinolone Acetonide), 5 DROPS OTL DAILY Leucovorin Calcium (Leucovorin Calcium), 5 MG PO DAILY Lisinopril (Lisinopril), 10 MG PO HS Loratadine (Claritin), 10 MG PO QAM Magnesium Oxide (Magnesium), 250 MG PO QAM Methimazole (Methimazole ), 2.5 MG PO QAM Metoprolol Tartrate (Lopressor) (Lopressor), 12.5 MG PO BID Mometasone Furoate (Nasal) (Mometasone Furoate), 1 SPRAY ROBIN DAILY Multiple Vitamins W/ Minerals (Preservision Areds 2), 1 CAP PO BID Naproxen (Aleve), 220 MG PO PRN UD Prednisone (Prednisone), 5 MG PO QAM Pregabalin (Lyrica), 25 MG PO BID Sodium Chloride (Sodium Chloride), 1 GM PO BID Scheduled PRN Acetaminophen (Tylenol), 1-2 TABS PO Q6 PRN for Pain Nitroglycerin (Nitrostat), 0.4 MG SL UD PRN for Chest Pain Peg [id number] Bicarb-Sod Ch (Golytely), 1 DOSE PO DIRECTED PRN for Constipation Polyethylene Glycol 3350 (Miralax), 17 GM PO DAILY PRN for Constipation Tramadol (Ultram), 50 MG PO Q8H PRN for Pain Current Inpatient Medications Current Inpatient Medications Medications (Trade) Dose Ordered Sig/Herminia Route Start Time Stop Time Status Last Admin Dose Admin Albumin Human (Albumin 25%) 25 gm TODAY@0630 ONCE IV 01/26/18 06:30 01/26/18 06:31 Sodium Chloride 1,000 ml @ 999 mls/hr Q1H1M IV 01/26/18 05:00 02/25/18 04:59 01/26/18 05:26 999 MLS/HR Vancomycin HCl 1500 mg/Sodium Chloride 530 ml @ 200 mls/hr NOW STAT IV 01/26/18 05:16 01/26/18 07:54 01/26/18 05:24 200 MLS/HR Vancomycin HCl 1000 mg/Sodium Chloride 270 ml @ 125 mls/hr Q12 IV 01/26/18 09:00 02/05/18 08:59 UNV Miscellaneous Information (Consult) 1 ea UD PRN N/A 01/26/18 06:15 02/25/18 06:14 Miscellaneous Information (Consult) 1 ea UD PRN N/A 01/26/18 06:15 02/25/18 06:14 Hydrocortisone Sodium Succinate 100 mg/Syringe 2 ml @ 4 mls/min Q8H IV 01/26/18 12:00 02/25/18 11:59 Vancomycin HCl (Vancomycin Oral Soln) 125 mg Q6H PO 01/26/18 08:00 02/05/18 07:59 Fentanyl Citrate (Fentanyl Inj) 25 mcg Q1H PRN IV 01/26/18 06:15 02/09/18 06:14 UNV Norepinephrine Bitartrate 8 mg/ Dextrose 508 ml @ 0 mls/hr Q0M PRN IV 01/26/18 06:04 02/25/18 06:03 Ondansetron HCl (Zofran Inj) 4 mg Q6H PRN IV 01/26/18 06:15 02/25/18 06:14 UNV Pantoprazole Sodium 40 mg/ Syringe 10 ml @ 5 mls/min DAILY IV 01/26/18 09:00 02/25/18 08:59 UNV Miscellaneous Information (Icu Protocol For Hyperglycemia) 1 ea PRN PRN N/A 01/26/18 06:15 01/28/18 06:14 Parenteral Electrolyte Solution 1,000 ml @ 100 mls/hr Q10H IV 01/26/18 06:15 02/25/18 06:14 Acetaminophen 650 mg/Empty Bag 65 ml @ 260 mls/hr Q6H PRN IV 01/26/18 06:15 02/25/18 06:14 Atorvastatin Calcium (Lipitor Tab) 20 mg HS PO 01/26/18 21:00 02/25/18 20:59 Calcitriol (Rocaltrol Cap) 0.25 mcg QAM PO 01/26/18 09:00 02/25/18 08:59 UNV Leucovorin Calcium (Leucovorin Calcium Tab) 5 mg DAILY PO 01/26/18 09:00 02/25/18 08:59 UNV Methimazole (Methimazole Tab) 2.5 mg QAM PO 01/26/18 09:00 02/25/18 08:59 UNV Nitroglycerin (Nitrostat Tab) 0.4 mg UD PRN SL 01/26/18 06:15 02/25/18 06:14 UNV Pregabalin (Lyrica Cap) 25 mg BID PO 01/26/18 09:00 02/25/18 08:59 Sodium Chloride (Sodium Chloride Tab) 1 gm BID PO 01/26/18 09:00 02/25/18 08:59 UNV Review of Systems A complete 10-point Review of Systems was discussed with the patient, with pertinent positives and negatives listed in the History of Present Illness. All remaining Review of Systems questions can be considered negative unless otherwise specified. Physical Exam Date Time Temp Pulse Resp B/P (MAP) Pulse Ox O2 Delivery O2 Flow Rate FiO2 01/26/18 05:49 105/51 01/26/18 05:39 74/27 01/26/18 05:31 35.5 55/41 97 Nasal Cannula 2.0 01/26/18 05:30 65 16 94 01/26/18 05:24 45/27 01/26/18 05:16 53/38 01/26/18 05:15 69 18 94 01/26/18 05:01 68/46 01/26/18 05:00 67 15 01/26/18 04:46 75/40 01/26/18 04:45 66 22 91 01/26/18 04:32 35.0 66 20 86/45 92 Room Air 01/26/18 04:31 86/35 01/26/18 04:30 65 28 01/26/18 04:20 59 19 79/39 01/26/18 04:15 60 16 93 01/26/18 04:12 54/37 01/26/18 04:10 59 17 92 01/26/18 04:05 58 18 77/47 96 01/26/18 04:00 58 14 86/39 01/26/18 03:58 82/43 01/26/18 03:50 60 14 01/26/18 03:43 72/42 01/26/18 03:35 62 18 01/26/18 03:34 59/43 01/26/18 03:30 62 25 01/26/18 03:25 68 18 01/26/18 03:20 72 19 01/26/18 03:18 Room Air 01/26/18 03:15 69 25 01/26/18 03:10 68 17 01/26/18 03:05 69 24 01/26/18 03:01 61/45 01/26/18 03:00 69 17 99 01/26/18 02:58 70 20 61/45 95 Room Air VITAL SIGNS - Vital signs and nursing notes were reviewed. GENERAL - 82-year-old female appearing her stated age who is in no acute distress. Communicates well with provider and answers questions appropriately. HEAD - NC/AT. EYES - PERRL with EOMI bilaterally. Sclera anicteric. EARS - No deformities of external structures noted on gross examination bilaterally. NOSE - Midline and without cyanosis. MOUTH/OROPHARYNX - Without perioral cyanosis. Buccal mucosa pink and dry. NECK - Neck with FROM. Supple to palpation. No nuchal rigidity. LUNGS - Chest wall symmetric without accessory muscle use, intercostals retractions, or central cyanosis. Normal vesicular breath sounds CTA B/L. No wheezes, rales, or rhonchi appreciated. CARDIAC - RRR with S1/S2. No murmur, rubs, or gallops appreciated. ABDOMEN - Abdominal contour obese and without pulsations or visible masses. BS hyperactive all four quadrants. Moderate tenderness to palpation appreciated in the bilateral lower abdomen. No guarding. No Rebound Tenderness. Negative Rovsing's. Negative Elizabeth's. No palpable masses, hepatosplenomegaly, or ascites noted. EXTREMITIES - No clubbing or peripheral cyanosis. No pretibial edema present. +2 /5 radial pulses palpated throughout. PSYCH - A&Ox3 and cooperates fully with examiner. Pt is very pleasant and interacts well with examiner. Laboratory Results Last 24 Hours Test 01/26/18 03:43 01/26/18 03:45 White Blood Count 17.00 K/uL Red Blood Count 3.64 M/uL Hemoglobin 11.8 g/dL Hematocrit 36.2 % Mean Corpuscular Volume 99.5 fL Mean Corpuscular Hemoglobin 32.4 pg Mean Corpuscular Hemoglobin Concent 32.6 g/dl Platelet Count 269 K/uL Mean Platelet Volume 10.2 fL Neutrophils (%) (Auto) 78.3 % Lymphocytes (%) (Auto) 14.5 % Monocytes (%) (Auto) 5.0 % Eosinophils (%) (Auto) 1.1 % Basophils (%) (Auto) 0.2 % Neutrophils # (Auto) 13.30 K/uL Lymphocytes # (Auto) 2.47 K/uL Monocytes # (Auto) 0.85 K/uL Eosinophils # (Auto) 0.19 K/uL Basophils # (Auto) 0.03 K/uL RDW Standard Deviation 49.5 fL RDW Coefficient of Variation 13.6 % Immature Granulocyte % (Auto) 0.9 % Immature Granulocyte # (Auto) 0.16 K/uL Prothrombin Time 10.9 SECONDS Prothromb Time International Ratio 1.0 Activated Partial Thromboplast Time 26.0 SECONDS Partial Thromboplastin Ratio 1.0 Sodium Level 139 mmol/L Potassium Level 4.0 mmol/L Chloride Level 107 mmol/L Carbon Dioxide Level 22 mmol/L Anion Gap 10.0 mmol/L Blood Urea Nitrogen 80 mg/dl Creatinine 2.40 mg/dl Est Creatinine Clear Calc Drug Dose 17.2 ml/min Estimated GFR () 21.1 Estimated GFR (Non- 18.2 BUN/Creatinine Ratio 33.5 Random Glucose 117 mg/dl Calcium Level 7.9 mg/dl Total Bilirubin 0.5 mg/dl Direct Bilirubin 0.2 mg/dl Aspartate Amino Transf (AST/SGOT) 21 U/L Alanine Aminotransferase (ALT/SGPT) 20 U/L Alkaline Phosphatase 66 U/L Troponin I < 0.015 ng/ml Total Protein 5.5 gm/dl Albumin 2.7 gm/dl Globulin 2.8 gm/dl Albumin/Globulin Ratio 1.0 Lipase 446 U/L Bedside Lactic Acid Arterial 1.71 mmol/L Diagnostic Results Chest x-ray is reviewed by myself is of generally poor quality, however does not represent acute infiltrative change or congestive pattern per my interpretation. Radiologist's impression unavailable at the time of dictation. Assessment & Plan (1) Severe sepsis with septic shock (2) Abdominal pain (3) Elevated lactic acid level (4) Acute renal failure (5) Benign hypertension (6) Chronic congestive heart failure (7) Gastroesophageal reflux disease (8) Hyperlipidemia Reason Critically Ill: 82-year-old female with severe sepsis with septic shock secondary to likely GI source. Initially received aggressive IV fluid resuscitation without improvement in blood pressure. Eventually requiring vasopressors for blood pressure support. Neuro - * CAM ICU: NEGATIVE * Abdominal Pain - PRN Fentanyl 25 mcg * Depression - continue home Rx Cardiac - * h/o HTN, CHF * Recent admission for CP - Echo shows EF >60% * Will watch closely for s/s of volume overload during IVF resuscitative efforts. * Initial EKG in ED showed some slight J-point elevation in leads I/II. Repeat EKG shows SR w/ 1'avb - no acute ST/T-wave changes noted. * Monitor on telemetry. * Trend troponins * EKGs for any c/o CP * Do not see utility in repeat echo currently w/ recent echo last week. * Will hold diuretic at this point - add back on as soon as BP allows 2/2 h/o CHF * Currently on Levophed for hypotension - titrate as needed. Respiratory - * No h/o pulmonary disease. * Will watch closely for O2 demand changes as pt w/ extensive PMHx of CHF and requiring aggressive IVF. GI - * Abdominal pain, N/V/D, h/o Ischemic Colitis - likely sepsis source: * CT abd/pelvis pending. * IV Abx - Zosyn/vanc per admitting team and per prior records. * Addition of PO vanc in the setting of significant h/o C. diff colitis w/ recurrence. * Add c.diff and stool cultures. * Guaiac stools * Appreciate GI consultation. RENAL/LYTES - * CORNELL: * 2/2 septic state and hypotension/hypoperfusion. * Aggressive IVF - received 3L crystalloid in the ED. * Normosol@100mL/hr * Received IV albumin in ED. * Trend Lytes - * Reddy Catheter for strict I&Os * Culture urine for ?? sepsis source. ENDO - * No h/o DM. * h/o HYPERthyroidism: * Continue home Rx * Chronic Corticosteroid therapy: * Provided initial dose of 100mg Solu-Cortef in the ED. * Agree with continuing this in the acute sepsis setting. HEME - * Stable H&H - will trend. * Leukocytosis 2/2 sepsis. ID - * Severe Sepsis w/ Septic Shock likely 2/2 GI source: * GI//Blood Cultures Added. * Vanc/Zosyn IV * Vanc PO w/ severe h/o C. diff * Trend Lactate. * Check ProCal - trend for effectiveness of treatment. LINES/IV ACCESS - * PIVs x2 in place. * Will likely require CVL access 2/2 need for vasopressors. Has had lines in the past. * Low threshold for A-line 2/2 need for vasopressors. * Reddy Catheter. DVT PROPHYLAXIS - * Heparin sq BID I have personally spent 50 minutes of critical care time in the direct management of this patient. This is a life/limb threatening event. This includes time spent evaluating patient, direct bedside care, chart review, placing orders, interpretation of diagnostic studies, discussion with consultants, patient, and family members, as well as other required patient management activities. This time is exclusive of all separately billable procedures, and teaching time and separate from and in addition to any other critical care service time. Thank you for this consultation allow us to be part of this patient's care. Please refer to my attending physician's documentation for any further recommendations. Attending addendum, The patient was seen, examined independently, agreed with the assessment and plan of my colleague Servando Bautista. The patient was admitted to the hospital with abdominal pain accompanied also with nausea vomiting. 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 The patient recently had ear infection according to her which she was treated with 3 courses of antibiotics and was placed on Vanco p.o. prophylactically. The patient presented to the hospital with severe dehydration, nausea vomiting, abdominal pain in lower abdomen, she does have history of scleroderma, chronic kidney disease, congestive heart failure, peripheral arterial disease. When I interviewed her, she was asymptomatic, her blood pressure and heart rate has been maintained, she did not have desaturation. The patient blood pressure was be maintained. She has no JVP, S1-S2 regular rate and rhythm, distant breath sounds bilaterally, abdomen was totally benign no tenderness but soft. No edema in the periphery. I have reviewed her labs which revealed leukocytosis, stable hematocrit and BUN creatinine slightly elevated but within her baseline. In review of her imaging, the patient does have polycystic kidneys bilaterally, she does have thickened bowel wall mainly in the sigmoid area. Impression: 1. C. difficile colitis is a possibility however the patient antigen assay was negative by PCR. However the patient insisted on being treated for C. difficile colitis as she has been instructed by her zinc plate cutter to do so every time she goes on antibiotics. 2. The findings on the CAT scan are most suspicious for ischemic colitis, appeared to be submucosal rather than transmural ischemia. 3. History of scleroderma and lupus erythematosus according to the patient, she does have significant calcifications in the aorto bifemoral area which could represent lack of blood flow to the TEVIN. 4. The patient had a history of smoking quit 20 years ago but she has more than [id number] history of smoking. This also contributes to peripheral arterial disease. 5. History of congestive heart failure, currently stable. Plan: 1. I will continue with Zosyn. 2. I will stop vancomycin IV. 3. Under the patient requests I have restarted Vanco p.o. I do believe that the patient is C. difficile free at this point, I could not predict reactivation of C. difficile colitis in the future. 4. I will treat the patient with IV fluid considering that my first suspicion is ischemic colitis. There is no evidence of melena but there is blood-tinged stool according to the patient. Hematocrit has been stable. 5. Pain control. 6. IV fluid. 7. Oral intake. 8. CAT scan of the abdomen was reviewed personally. 9. Case discussed with the staff on rounds and details, agree with assessment and plan of my colleague, critical care time spent with the patient was [address] PICC line on this patient for IV infusion. Problem Qualifiers (1) Abdominal pain: Abdominal location: lower abdomen, unspecified Qualified Codes: R10.30 - Lower abdominal pain, unspecified
--- NOTE | 2018-01-26 07:14 | DIAGNOSTIC IMAGING REPORT ---
CHEST ONE VIEW PORTABLE CLINICAL HISTORY: Sepsis COMPARISON STUDY: 01/11/2018 FINDINGS: The cardiac and mediastinal contours remain stable. There is a suboptimal inspiration. There is no failure. There is no focal pulmonary consolidation. There are no pleural effusions. There are minor hypoventilatory changes the lung bases. Surgical clips are visualized projecting over the esophagogastric junction.[ IMPRESSION: No active disease in the chest. Electronically signed by: Virgliio Galarza M.D. 01/26/2018 7:13 AM Dictated Date/Time: 01/26/2018 7:13 AM
[2018-01-26] MEDS: LEUCOVORIN CALCIUM 5 MG TAB PO SCH ×2 (07:46→07:59)
[2018-01-26] MEDS: CALCITRIOL 0.25 MCG CAP PO SCH (07:46)
[2018-01-26] MEDS: SODIUM CHLORIDE 1 GM TAB PO SCH ×3 (07:46→20:33)
[2018-01-26] MEDS: METHIMAZOLE 5 MG TAB PO SCH (07:46)
[2018-01-26] MEDS ORDERED: PREGABALIN 25MG CAP ONE (07:48)
[2018-01-26] MEDS: PREGABALIN 25MG CAP PO SCH ×2 (07:49→20:33)
[2018-01-26] MEDS: PANTOprazole INJ 40 MG in SYRINGE 0 ML IV SCH (07:49)
--- NOTE | 2018-01-26 07:56 | DIAGNOSTIC IMAGING REPORT ---
ABDOMEN AND PELVIS CT WITHOUT CONTRAST CT DOSE: 1029.93 mGy.cm HISTORY: Left lower quadrant abdominal pain. TECHNIQUE: Multiaxial CT images of the abdomen and pelvis were performed without the use of intravenous and oral contrast according to the standard department stone protocol. A dose lowering technique was utilized adhering to the principles of ALARA. COMPARISON STUDY: Abdomen and pelvis CT 10/15/2017. FINDINGS: A 3 mm nodule within the right lower lobe on image 1. No pneumoperitoneum. No pneumatosis. There is a right dynamic hip screw. Old compression deformity is within the thoracic spine are again noted. This most process at the T7 level which also demonstrates 3 mm of retropulsion and mild central canal narrowing. There are few scattered hypodense lesions within the liver with the largest in the left hepatic lobe measuring 1.8 cm. These are incompletely characterize on this noncontrast study but remain stable and likely represent cysts. The unenhanced spleen and adrenal glands are unremarkable. Prior cholecystectomy. Stable small cystic lesion within the pancreas. Multiple bilateral renal hypodense lesions remain unchanged. These are also incompletely characterize on this noncontrast study but favor cysts. No renal or ureteral calculi. No hydronephrosis. Moderate calcified plaque within the normal caliber aorta and common iliac arteries. No retroperitoneal lymphadenopathy. The bladder is unremarkable. Pelvic floor collapse. A pessary device is noted. Colonic diverticulosis. Mild to moderate bowel wall thickening involving the entire colon with minimal surrounding fat stranding. No evidence for bowel obstruction. There are also a few mildly thickened loops of distal ileum within the anterior pelvis. Slight increase in size in the 8 cm right adnexal cystic lesion. IMPRESSION: 1. Mild to moderate bowel wall thickening involving the entire colon and distal ileum. This is consistent with a nonspecific ileocolitis and favors an inflammatory or infectious process. 2. Slight increase in size in the 8 cm cystic lesion within the right adnexa. If this is ovarian this would be considered abnormal in a postmenopausal patient and could represent an ovarian neoplasm. Gynecologic consultation is recommended. 3. Additional stable findings as described above. Electronically signed by: Sam Jones M.D. 01/26/2018 7:55 AM Dictated Date/Time: 01/26/2018 7:34 AM
[2018-01-26] MEDS ORDERED: RASPBERRY SYRUP 5 ML UDP PO SCH (08:00)
--- NOTE | 2018-01-26 08:28 | Progress Note ---
Subjective Date of Service: Jan 26, 2018. Subjective this pt is pleasant and awake. she has some persistent lower abdominal pain. she has not had diarrhea to test Problem List Medical Problems: (1) Abdominal pain Status: Acute (2) Abdominal pain Status: Acute (3) Acute renal failure Status: Acute (4) Back pain Status: Acute (5) Benign hypertension Status: Chronic (6) Chronic congestive heart failure Status: Chronic (7) Dehydration Status: Acute (8) Elevated lactic acid level Status: Acute (9) Gastroesophageal reflux disease Status: Chronic (10) Hyperlipidemia Status: Chronic (11) Hypotension Status: Acute (12) Hypotension Status: Acute (13) Ischemic colitis Status: Acute (14) Ischemic colitis Status: Acute (15) Left sided chest pain Status: Acute (16) Rectal bleed Status: Acute (17) Rib pain Status: Acute (18) Severe sepsis with septic shock Status: Acute (19) Weakness Status: Acute Review of Systems Constitutional: No fever, No chills, No weakness, No fatigue Respiratory: No cough, No shortness of breath Cardiac: No chest pain, No edema Abdomen: + pain, No vomiting, No diarrhea Female : No dysuria, No urinary frequency Neurologic: No memory loss, No weakness Psychiatric: No depression symptoms, No anhedonism Objective Vital Signs Date Time Temp Pulse Resp B/P (MAP) Pulse Ox O2 Delivery O2 Flow Rate FiO2 01/26/18 06:10 35.9 74 18 102/52 (69) 99 Room Air 01/26/18 05:49 105/51 01/26/18 05:39 74/27 01/26/18 05:31 35.5 55/41 97 Nasal Cannula 2.0 01/26/18 05:30 65 16 94 01/26/18 05:24 45/27 01/26/18 05:16 53/38 01/26/18 05:15 69 18 94 01/26/18 05:01 68/46 01/26/18 05:00 67 15 01/26/18 04:46 75/40 01/26/18 04:45 66 22 91 01/26/18 04:32 35.0 66 20 86/45 92 Room Air 01/26/18 04:31 86/35 01/26/18 04:30 65 28 01/26/18 04:20 59 19 79/39 01/26/18 04:15 60 16 93 01/26/18 04:12 54/37 01/26/18 04:10 59 17 92 01/26/18 04:05 58 18 77/47 96 01/26/18 04:00 58 14 86/39 01/26/18 03:58 82/43 01/26/18 03:50 60 14 01/26/18 03:43 72/42 01/26/18 03:35 62 18 01/26/18 03:34 59/43 01/26/18 03:30 62 25 01/26/18 03:25 68 18 01/26/18 03:20 72 19 01/26/18 03:18 Room Air 01/26/18 03:15 69 25 01/26/18 03:10 68 17 01/26/18 03:05 69 24 01/26/18 03:01 61/45 01/26/18 03:00 69 17 99 01/26/18 02:58 70 20 61/45 95 Room Air Physical Exam General Appearance: WD/WN, + mild distress Eyes: normal inspection, sclerae normal Neck: supple, no JVD Respiratory/Chest: chest non-tender, lungs clear, normal breath sounds Cardiovascular: regular rate, rhythm, no murmur Abdomen: normal bowel sounds, soft, + tenderness Extremities: no pedal edema, no calf tenderness Neurologic/Psychiatric: alert, oriented x 3 Laboratory Results Last 24 Hours Test 01/26/18 03:43 01/26/18 03:45 01/26/18 07:40 White Blood Count 17.00 K/uL Red Blood Count 3.64 M/uL Hemoglobin 11.8 g/dL Hematocrit 36.2 % Mean Corpuscular Volume 99.5 fL Mean Corpuscular Hemoglobin 32.4 pg Mean Corpuscular Hemoglobin Concent 32.6 g/dl Platelet Count 269 K/uL Mean Platelet Volume 10.2 fL Neutrophils (%) (Auto) 78.3 % Lymphocytes (%) (Auto) 14.5 % Monocytes (%) (Auto) 5.0 % Eosinophils (%) (Auto) 1.1 % Basophils (%) (Auto) 0.2 % Neutrophils # (Auto) 13.30 K/uL Lymphocytes # (Auto) 2.47 K/uL Monocytes # (Auto) 0.85 K/uL Eosinophils # (Auto) 0.19 K/uL Basophils # (Auto) 0.03 K/uL RDW Standard Deviation 49.5 fL RDW Coefficient of Variation 13.6 % Immature Granulocyte % (Auto) 0.9 % Immature Granulocyte # (Auto) 0.16 K/uL Prothrombin Time 10.9 SECONDS Prothromb Time International Ratio 1.0 Activated Partial Thromboplast Time 26.0 SECONDS Partial Thromboplastin Ratio 1.0 Sodium Level 139 mmol/L Potassium Level 4.0 mmol/L Chloride Level 107 mmol/L Carbon Dioxide Level 22 mmol/L Anion Gap 10.0 mmol/L Blood Urea Nitrogen 80 mg/dl Creatinine 2.40 mg/dl Est Creatinine Clear Calc Drug Dose 17.2 ml/min Estimated GFR () 21.1 Estimated GFR (Non- 18.2 BUN/Creatinine Ratio 33.5 Random Glucose 117 mg/dl Calcium Level 7.9 mg/dl Total Bilirubin 0.5 mg/dl Direct Bilirubin 0.2 mg/dl Aspartate Amino Transf (AST/SGOT) 21 U/L Alanine Aminotransferase (ALT/SGPT) 20 U/L Alkaline Phosphatase 66 U/L Troponin I < 0.015 ng/ml Total Protein 5.5 gm/dl Albumin 2.7 gm/dl Globulin 2.8 gm/dl Albumin/Globulin Ratio 1.0 Lipase 446 U/L Bedside Lactic Acid Arterial 1.71 mmol/L Urine Color YELLOW Urine Appearance CLEAR Urine pH 5.0 Urine Specific [place] 1.014 Urine Protein NEG Urine Glucose (UA) NEG Urine Ketones NEG Urine Occult Blood NEG Urine Nitrite NEG Urine Bilirubin NEG Urine Urobilinogen NEG Urine Leukocyte Esterase TRACE Assessment and Plan 82-year-old female with severe sepsis with septic shock secondary to likely GI source. Initially received aggressive IV fluid resuscitation without improvement in blood pressure. Eventually requiring vasopressors for blood pressure support. Sepsis considering abdominal source as Abdominal pain, N/V/D, h/o Ischemic Colitis, Zosyn/vanc, Vanc PO w/ severe h/o C. diff, pressor support with levophed, stool and blood cultures pending but no additional diarrhea, concern for possible recurrent ischemic colitis Depression - continue home Rx Hypotension h/o CAD.Trend troponins w/ recent echo last week. 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
[2018-01-26] MEDS ORDERED: VANCOMYCIN IV 1,000 MG in SODIUM CHLORIDE 0.9% 250ML 250 ML IV SCH (09:00)
--- NOTE | 2018-01-26 09:41 | DIAGNOSTIC IMAGING REPORT ---
DUPLEX MESENTERIC ARTERY ULTRASOUND CLINICAL HISTORY: h/o bowel ischemia, eval in setting of sepsis/hypotension/generalized abdominal pain. COMPARISON STUDY: Abdomen and pelvis CT 01/26/2018. FINDINGS: The abdominal aorta appears to be normal in caliber demonstrating a peak systolic velocity of 71 cm/s. The peak velocity within the proximal to mid SMA is 289 cm/s. Peak systolic velocity within the celiac artery is 154 cm/s. The inferior mesenteric artery was obscured by overlying bowel gas. IMPRESSION: 1. Elevated systolic velocity within the proximal to mid superior mesenteric artery consistent with hemodynamically significant stenosis. 2. No hemodynamically significant stenosis within the celiac artery. Electronically signed by: Sam Jones M.D. 01/26/2018 9:40 AM Dictated Date/Time: 01/26/2018 9:37 AM
--- NOTE | 2018-01-26 13:22 | Gastrointestinal Consultation ---
Gastrointestinal Consultation Date of Consultation: Jan 26, 2018 Attending Physician: Facundo Carrillo Consulting Physician: Crystal Bowling Reason for Consultation: Abd pain, hx of ischemic colitis History of Present Illness Patient is a 82 year old female who presented to ED w c/o N/V, diarrhea after dinner last night. 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 She was noted to be hypotensive w SBP in 50s-60s in ED. Also has leukocytosis WBC 17K, H/H showed midl anemia. BUN/Cr 80/2.4 consistent with CORNELL. Lactic acid up 2.8. She had been fluid resuscitated, and on Norepinephrine drip. BP now 110s/60s. HR 70s. Cr trending down. Her CT abd/pelvis was noted to showed mild to moderate colon wall thickening also involving the terminal ileum area. CXR negative for acute processes. Pt reports had mastoiditis in November with 2 month's worth of antibx treatment w AMOX then Augmentin. She has been given Vancomycin for Cdiff prophylaxis while on antibiotics. She denies any more BM since admitted and currently abd pain, n/v is resolving. Blood cx pending. Cdiff negative, Stool cx pending. She is currently on Zosyn and Vancomycin Past Medical/Surgical History Medical Problems: (1) Abdominal pain Status: Acute (2) Abdominal pain Status: Acute (3) Acute renal failure Status: Acute (4) Back pain Status: Acute (5) Benign hypertension Status: Chronic (6) Chronic congestive heart failure Status: Chronic (7) Dehydration Status: Acute (8) Elevated lactic acid level Status: Acute (9) Gastroesophageal reflux disease Status: Chronic (10) Hyperlipidemia Status: Chronic (11) Hypotension Status: Acute (12) Hypotension Status: Acute (13) Ischemic colitis Status: Acute (14) Ischemic colitis Status: Acute (15) Left sided chest pain Status: Acute (16) Rectal bleed Status: Acute (17) Rib pain Status: Acute (18) Severe sepsis with septic shock Status: Acute (19) Weakness Status: Acute Past Medical History: (1) Abdominal pain (2) Acute renal failure (3) Acute renal failure (4) Appendectomy (5) Back pain (6) Back pain (7) Benign hypertension (8) C DIFF POA (9) Cholecystectomy (10) Chronic congestive heart failure (11) Colitis (12) Colonoscopy (13) Compression fracture (14) Dehydration (15) Depression (16) dextroscoliosis (17) Dizziness (18) Dizziness (19) E COLI UTI POA (20) Gastroesophageal reflux disease (21) Hyperlipidemia (22) Hypotension (23) Hysterectomy (24) Ischemic colitis (25) Left sided chest pain (26) Musculoskeletal chest pain (27) orthopedic surgery (28) Osteoporosis (29) Pancreatic lesion (30) PERSONAL HISTORY OF PEPTIC ULCER DISEASE (31) Pyelonephritis (32) Rectal bleed (33) renal disease (34) Rib pain (35) Sepsis (36) Septic shock (37) uti, pyelo (38) uti, pyelo, acute on chronic renal failure (39) Vertigo (40) Vertigo (41) Weakness Family History Cancer Gallbladder disease Heart disease Hypertension Unrelated to current admission Social History Smoking Status: Never Smoker Alcohol Use: none Drug Use: none Marital Status: Housing Status: lives with family Occupation Status: retired Allergies Coded Allergies: Adhesives (Verified Allergy, Severe, BLISTERING, 01/11/18) PAPER TAPE CAUSES SEVERE BLISTERING Cefuroxime (Verified Allergy, Unknown, INEFFECTIVE, 01/11/18) Ciprofloxacin (Verified Allergy, Unknown, INEFFECTIVE, 01/11/18) Erythromycin (Verified Allergy, Unknown, SEVERE VOMITING, 01/11/18) Furosemide (Verified Allergy, Unknown, HIVES, SULFA ALLERGY TO LOOP DIURETICS, 01/11/18) Hydrochlorothiazide (Verified Allergy, Unknown, HIVES, 01/11/18) Levofloxacin (Verified Allergy, Unknown, INEFFECTIVE, 01/11/18) Metoclopramide (Verified Allergy, Unknown, anxiety attacks, 01/11/18) Sulfa Antibiotics (Verified Allergy, Unknown, HIVES AND ANAPHYLAXIS, ) Metronidazole (Verified Adverse Reaction, Severe, Neuropathy, 01/11/18) Meperidine (Verified Adverse Reaction, Unknown, INEFFECTIVE FOR PT, 01/11/18 ) INAFFECTIVE FOR PATIENT Uncoded Allergies: all diuretics (Allergy, Severe, throat swells, 06/10/17) Current Medications Home Meds and Scripts Medications Dose Route/Sig Max Daily Dose Days Date Category Dose Instructions Nitrostat (Nitroglycerin) 0.4 Mg/1 Tab Subl 0.4 Mg SL UD PRN 30 01/12/18 Rx Ultram (Tramadol HCl) 50 Mg Tab 50 Mg PO Q8H PRN 01/11/18 Reported Sodium Chloride 1 Gm Tab 1 Gm PO BID 01/11/18 Reported Lyrica (Pregabalin) 25 Mg Cap 25 Mg PO BID 01/11/18 Reported Golytely (Peg 3217-[id number]-Gom Bicarb-Sod Ch) 1 Benita Benita 1 Dose PO DIRECTED PRN 01/11/18 Reported Miralax (Polyethylene Glycol 3350) 1 Pow Pow 17 Gm PO DAILY PRN 01/11/18 Reported Lisinopril 10 Mg Tab 10 Mg PO HS 01/11/18 Reported Aleve (Naproxen) 220 Mg Tab 220 Mg PO PRN UD 11/12/17 Reported Tylenol (Acetaminophen) 500 Mg Tab 1-2 Tabs PO Q6 PRN 11/12/17 Reported Mometasone Furoate (Mometasone Furoate (Nasal)) 50 Mcg/Act Spr 1 [place] ROBIN DAILY 10/08/17 Reported Preservision Areds 2 (Multiple Vitamins W/ Minerals) 1 Cap Cap 1 Cap PO BID 10/08/17 Reported Fluocinolone Acetonide (Fluocinolone Acetonide (Otic)) 0.01 % Oil 5 Drops OTL DAILY 10/08/17 Reported Claritin (Loratadine) 10 Mg Tab 10 Mg PO QAM 10/08/17 Reported Prolia (Denosumab) 60 Mg/Ml Benita 60 Mg INJ UD 10/08/17 Reported EVERY 6 MONTHS Leucovorin Calcium 5 Mg Tab 5 Mg PO DAILY 10/08/17 Reported Biotin 1,000 Mcg Tab 1,000 Mcg PO QAM 10/08/17 Reported Vitamin D3 (Cholecalciferol) 1,000 Unit Tab 3,000 Unit PO DAILY 03/12/17 Reported Cyanocobalamin 1,000 Mcg/Ml Inj 1 Dose INJ [id number] 03/12/17 Reported Magnesium (Magnesium Oxide) 250 Mg Tab 250 Mg PO QAM 05/18/16 Reported Rocaltrol Cap (Calcitriol) 0.25 Mcg Cap 0.25 Mcg PO QAM 06/04/15 Reported Prednisone 5 Mg Tab 5 Mg PO QAM 06/04/15 Reported Lopressor (Metoprolol Tartrate) 25 Mg Tab 12.5 Mg PO BID 08/29/14 Reported 1/2 TABLET DOSE Edecrin (Ethacrynic Acid) 25 Mg Tab 100 Mg PO QAM 06/09/14 Reported Methimazole (Methimazole) 5 Mg Tab 2.5 Mg PO QAM 06/09/14 Reported 1/2 TABLET DOSE Lipitor (Atorvastatin Calcium) 20 Mg Tab 20 Mg PO HS 07/26/13 Reported Domperidone Bpbp 10 Mg PO QID 03/06/10 Reported Review of Systems Constitutional: + weakness, No fever, No chills Respiratory: No cough, No shortness of breath Cardiac: No chest pain Abdomen: + pain (improved), + nausea, + vomiting (improved), + diarrhea (none since admitted) Physical Exam Date Time Temp Pulse Resp B/P (MAP) Pulse Ox O2 Delivery O2 Flow Rate FiO2 01/26/18 12:00 100 Room Air 01/26/18 12:00 36.4 71 18 105/48 (67) 100 Room Air 01/26/18 10:00 79 18 137/72 (93) 100 Room Air 01/26/18 10:00 80 18 100 Room Air 01/26/18 08:00 36.4 76 18 111/63 (79) 98 Room Air 01/26/18 08:00 98 Room Air 01/26/18 08:00 Room Air 01/26/18 06:10 35.9 74 18 102/52 (69) 99 Room Air 01/26/18 05:49 105/51 01/26/18 05:39 74/27 01/26/18 05:31 35.5 55/41 97 Nasal Cannula 2.0 01/26/18 05:30 65 16 94 01/26/18 05:24 45/27 01/26/18 05:16 53/38 01/26/18 05:15 69 18 94 01/26/18 05:01 68/46 01/26/18 05:00 67 15 01/26/18 04:46 75/40 01/26/18 04:45 66 22 91 01/26/18 04:32 35.0 66 20 86/45 92 Room Air 01/26/18 04:31 86/35 01/26/18 04:30 65 28 01/26/18 04:20 59 19 79/39 01/26/18 04:15 60 16 93 01/26/18 04:12 54/37 01/26/18 04:10 59 17 92 01/26/18 04:05 58 18 77/47 96 01/26/18 04:00 58 14 86/39 01/26/18 03:58 82/43 01/26/18 03:50 60 14 01/26/18 03:43 72/42 01/26/18 03:35 62 18 01/26/18 03:34 59/43 01/26/18 03:30 62 25 01/26/18 03:25 68 18 01/26/18 03:20 72 19 01/26/18 03:18 Room Air 01/26/18 03:15 69 25 01/26/18 03:10 68 17 01/26/18 03:05 69 24 01/26/18 03:01 61/45 01/26/18 03:00 69 17 99 01/26/18 02:58 70 20 61/45 95 Room Air General Appearance: WD/WN, no apparent distress Eyes: normal inspection, PERRL, EOMI Neck: supple, no JVD, trachea midline Respiratory/Chest: normal breath sounds, no respiratory distress, no accessory muscle use Cardiovascular: regular rate, rhythm, no gallop, no murmur Abdomen: normal bowel sounds, non tender, soft Extremities: normal inspection, no pedal edema, no calf tenderness Neurologic/Psych: alert, normal mood/affect, oriented x 3 Skin: normal color, no jaundice, no rash Laboratory Results Last 24 Hours Test 01/26/18 03:43 01/26/18 03:45 01/26/18 07:13 01/26/18 07:40 White Blood Count 17.00 K/uL Red Blood Count 3.64 M/uL Hemoglobin 11.8 g/dL Hematocrit 36.2 % Mean Corpuscular Volume 99.5 fL Mean Corpuscular Hemoglobin 32.4 pg Mean Corpuscular Hemoglobin Concent 32.6 g/dl Platelet Count 269 K/uL Mean Platelet Volume 10.2 fL Neutrophils (%) (Auto) 78.3 % Lymphocytes (%) (Auto) 14.5 % Monocytes (%) (Auto) 5.0 % Eosinophils (%) (Auto) 1.1 % Basophils (%) (Auto) 0.2 % Neutrophils # (Auto) 13.30 K/uL Lymphocytes # (Auto) 2.47 K/uL Monocytes # (Auto) 0.85 K/uL Eosinophils # (Auto) 0.19 K/uL Basophils # (Auto) 0.03 K/uL RDW Standard Deviation 49.5 fL RDW Coefficient of Variation 13.6 % Immature Granulocyte % (Auto) 0.9 % Immature Granulocyte # (Auto) 0.16 K/uL Prothrombin Time 10.9 SECONDS Prothromb Time International Ratio 1.0 Activated Partial Thromboplast Time 26.0 SECONDS Partial Thromboplastin Ratio 1.0 Sodium Level 139 mmol/L Potassium Level 4.0 mmol/L Chloride Level 107 mmol/L Carbon Dioxide Level 22 mmol/L Anion Gap 10.0 mmol/L Blood Urea Nitrogen 80 mg/dl Creatinine 2.40 mg/dl Est Creatinine Clear Calc Drug Dose 17.2 ml/min Estimated GFR () 21.1 Estimated GFR (Non- 18.2 BUN/Creatinine Ratio 33.5 Random Glucose 117 mg/dl Calcium Level 7.9 mg/dl Total Bilirubin 0.5 mg/dl Direct Bilirubin 0.2 mg/dl Aspartate Amino Transf (AST/SGOT) 21 U/L Alanine Aminotransferase (ALT/SGPT) 20 U/L Alkaline Phosphatase 66 U/L Troponin I < 0.015 ng/ml Total Protein 5.5 gm/dl Albumin 2.7 gm/dl Globulin 2.8 gm/dl Albumin/Globulin Ratio 1.0 Lipase 446 U/L Bedside Lactic Acid Arterial 1.71 mmol/L Bedside Glucose 114 mg/dl Urine Color YELLOW Urine Appearance CLEAR Urine pH 5.0 Urine Specific [place] 1.014 Urine Protein NEG Urine Glucose (UA) NEG Urine Ketones NEG Urine Occult Blood NEG Urine Nitrite NEG Urine Bilirubin NEG Urine Urobilinogen NEG Urine Leukocyte Esterase TRACE Urine WBC (Auto) 1-5 /hpf Urine RBC (Auto) 0-4 /hpf Urine Hyaline Casts (Auto) >30 /lpf Urine Epithelial Cells (Auto) >30 /lpf Urine Bacteria (Auto) NEG Urine Crystals CALCIUM OXALATE Urine Pathogenic Casts 0-3 GRANULAR CASTS /lpf Test 01/26/18 09:01 Lactic Acid Level 2.8 mmol/L Procalcitonin 0.09 ng/ml Impression Patient is a 82 year old female with n/v/diarrhea, hypotension, CORNELL, suspected to be in septic shock. CT abd/pelvis showed ileocolonic wall thickening concerning for inflammatory vs infectious colitis. Currently infectious workup pending. She does have hx of ischemic colitis and recurrent Cdiff s/p stool transplant in 07/2017. Repeat Cdiff negative. Plan - Continue Zosyn and Vancomycin - F/U stool cx, blood cx - F/U mesentery u/s - Ok for CL diet, advance as tolerated - Will follow along - no plans on endoscopic eval at this time. Last colonoscopy in 2015 (diverticulosis, hemorrhoids).
[2018-01-26] MEDS: PIPERACILL/TAZOBAC IV 4.5 GM in DEXTROSE 5% 100ML IV SCH (13:59)
[2018-01-26] MEDS: HYDROCORTISONE IV 100 MG in SYRINGE 0 ML IV SCH ×2 (14:00→21:58)
[2018-01-26 15:22] LABS: CKMB 2.2 ng/ml (0.5-3.6)
[2018-01-26] MEDS ORDERED: PIPERACILL/TAZOBAC IV 4.5 GM in DEXTROSE 5% 100ML IV SCH (16:00)
[2018-01-26] MEDS: RASPBERRY SYRUP 5 ML UDP PO SCH ×2 (17:40→23:37)
[2018-01-26] MEDS: VANCOMYCIN HCL 250 MG/5 ML SOLN PO SCH ×2 (17:40→23:37)
[2018-01-26] MEDS: ATORVASTATIN 20 MG TAB PO SCH (20:33)
[2018-01-27] VITALS (13 sets, daily range): BP systolic 85–122; BP diastolic 38–63; PULSE 61–67; TEMP 36.3–36.7; O2SAT 94–100
[2018-01-27] MEDS: NORMOSOL R 1,000 ML IV SCH (02:15)
[2018-01-27] MEDS: PIPERACILL/TAZOBAC IV 4.5 GM in DEXTROSE 5% 100ML IV SCH ×3 (02:45→18:14)
[2018-01-27 05:48] LABS: EOS % 0.1 %; EOS ABS # 0.01 K/uL (0-0.5); HEMATOCRIT 28.3 % (37-47); HEMOGLOBIN 9.4 g/dL (12.0-16.0); IG# 0.04 K/uL (0.00-0.02); LYMPH % 6.2 %; LYMPH ABS # 0.57 K/uL (1.2-3.4); MEAN CELL VOLUME 98.3 fL (80-100); MEAN CORPUSCULAR HEMOGLOBIN 32.6 pg (25-34); MEAN CORPUSCULAR HGB CONC 33.2 g/dl (32-36); MEAN PLATELET VOLUME 10.1 fL (7.4-10.4); MONO % 4.2 %; MONO ABS # 0.38 K/uL (0.11-0.59); NEUT % 89.1 %; NEUT ABS # 8.15 K/uL (1.4-6.5); PLATELET COUNT 180 K/uL (130-400); RED CELL DISTRIBUTION WIDTH CV 13.5 % (11.5-14.5); RED CELL DISTRIBUTION WIDTH SD 48.3 fL (36.4-46.3); WHITE BLOOD COUNT 9.15 K/uL (4.8-10.8)
[2018-01-27] MEDS: VANCOMYCIN HCL 250 MG/5 ML SOLN PO SCH ×3 (05:49→18:14)
[2018-01-27] MEDS: RASPBERRY SYRUP 5 ML UDP PO SCH ×3 (05:49→18:13)
[2018-01-27] MEDS: HYDROCORTISONE IV 100 MG in SYRINGE 0 ML IV SCH (05:49)
[2018-01-27 06:21] LABS: ALBUMIN 2.9 gm/dl (3.4-5.0); CALCIUM 7.8 mg/dl (8.5-10.1); CREATININE 1.5 mg/dl (0.60-1.20); POTASSIUM 3.7 mmol/L (3.5-5.1)
[2018-01-27 06:36] LABS: PHOSPHORUS 2.9 mg/dl (2.5-4.9); TOTAL PROTEIN 5.3 gm/dl (6.4-8.2)
--- NOTE | 2018-01-27 07:38 | DIAGNOSTIC IMAGING REPORT ---
CHEST ONE VIEW PORTABLE HISTORY: Short of breath. Congestive heart failure. COMPARISON: Chest 01/26/2018. FINDINGS: No pneumothorax. No pleural effusions. Mild elevation the right hemidiaphragm. The heart is top normal in size. No evidence for pulmonary edema. No new focal lung consolidations to suggest pneumonia. A right PICC terminates in the SVC. Surgical clips are again noted at the epigastric region. There are low lung volumes. IMPRESSION: 1. A right PICC terminates at the SVC. 2. Low lung volumes and mild elevation of the right hemidiaphragm, unchanged. Electronically signed by: Sam Jones M.D. 01/27/2018 7:37 AM Dictated Date/Time: 01/27/2018 7:35 AM
[2018-01-27] MEDS: CALCITRIOL 0.25 MCG CAP PO SCH (07:43)
[2018-01-27] MEDS: METHIMAZOLE 5 MG TAB PO SCH (07:43)
[2018-01-27] MEDS: LEUCOVORIN CALCIUM 5 MG TAB PO SCH (07:44)
[2018-01-27] MEDS: SODIUM CHLORIDE 1 GM TAB PO SCH ×2 (07:44→21:00)
[2018-01-27] MEDS: PANTOprazole INJ 40 MG in SYRINGE 0 ML IV SCH (07:46)
[2018-01-27] MEDS: PREGABALIN 25MG CAP PO SCH ×2 (07:46→21:58)
--- NOTE | 2018-01-27 08:45 | Clinical Documentation Query ---
CLINICAL DOCUMENTATION QUERY 82 year old female who presents with septic shock 2/2 presumed ischemic colitis. The patient is documented as having CKD. Documenting the stage of CKD will improve data integrity and will help clarify vague terms such as "renal insufficiency" or "chronic renal failure." In your clinical opinion is this patient being managed for: ( ) Chronic kidney disease, stage 3 (moderate) ( xx ) Not Agree not managed but present ( ) Other explanation of clinical findings (Please Explain) ( ) Unable to determine (Please Define) ( ) Need to Discuss The medical record reflects the following clinical findings, treatment, and risk factors. Clinical Indicators: Review of cumulative labs shows and approximate baseline GFR of 37-44 and Creatinine of 1.26-1.50. Treatment: daily PRP's, IVF's, Risk Factors: Age Please clarify and document your clinical opinion in the progress notes and discharge summary. Terms such as "probable", "suspected", "likely", "questionable", "possible", or "still to be ruled out" are acceptable. IF IN AGREEMENT, YOU MUST DOCUMENT ABOVE DIAGNOSTIC STATEMENT IN DAILY PROGRESS NOTES AND DISCHARGE SUMMARY. This document is not part of the patient's record. Thank You, Eddie Martínez, RN [phone]
[2018-01-27] MEDS ORDERED: ETHACRYNIC ACID 25 MG TAB PO SCH (09:00)
--- NOTE | 2018-01-27 12:19 | Gastroenterology Progress Note ---
Progress Note Date of Service: Jan 27, 2018 Subjective Pt evaluation today including: conversation w/ patient, physical exam, chart review, lab review, review of studies, review of inpatient medication list Pt denies much abd pain, no n/v. U/S mesentery showed mesentery artery stenosis. Blood cx, Cdif negative. Review of Systems Constitutional: No fever, No chills Respiratory: No cough, No shortness of breath Cardiac: No chest pain Abdomen: No pain, No nausea, No vomiting Medications Current Inpatient Medications Medications (Trade) Dose Ordered Sig/Herminia Route Start Time Stop Time Status Last Admin Dose Admin Miscellaneous Information (Consult) 1 ea UD PRN N/A 01/26/18 06:15 02/25/18 06:14 Ondansetron HCl (Zofran Inj) 4 mg Q6H PRN IV 01/26/18 06:15 02/25/18 06:14 Miscellaneous Information ([facility] Protocol For Hyperglycemia) 1 ea PRN PRN N/A 01/26/18 06:15 01/28/18 06:14 Atorvastatin Calcium (Lipitor Tab) 20 mg HS PO 01/26/18 21:00 02/25/18 20:59 01/26/18 20:33 20 MG Calcitriol (Rocaltrol Cap) 0.25 mcg QAM PO 01/26/18 09:00 02/25/18 08:59 01/27/18 07:43 0.25 MCG Leucovorin Calcium (Leucovorin Calcium Tab) 5 mg DAILY PO 01/26/18 09:00 02/25/18 08:59 01/27/18 07:44 5 MG Methimazole (Methimazole Tab) 2.5 mg QAM PO 01/26/18 09:00 02/25/18 08:59 01/27/18 07:43 2.5 MG Nitroglycerin (Nitrostat Tab) 0.4 mg UD PRN SL 01/26/18 06:15 02/25/18 06:14 Pregabalin (Lyrica Cap) 25 mg BID PO 01/26/18 09:00 02/25/18 08:59 01/27/18 07:46 25 MG Sodium Chloride (Sodium Chloride Tab) 1 gm BID PO 01/26/18 09:00 02/25/18 08:59 Heparin Sodium (Porcine) (Heparin 10 Unit/ ml 5 ml Flush) 5 ml PRN PRN FLUSH 01/26/18 13:30 02/25/18 13:29 01/27/18 08:44 5 ML Vancomycin HCl (Vancomycin Oral Soln) 250 mg Q6H PO 01/26/18 18:00 02/09/18 17:59 01/27/18 11:50 250 MG Raspberry (Raspberry Syrup 5ml Cup) 5 ml Q6H PO 01/26/18 18:00 02/09/18 17:59 01/27/18 11:50 5 ML Piperacillin Sod/ Tazobactam Sod 4.5 gm/Dextrose 120 ml @ 30 mls/hr Q8H IV 01/27/18 10:00 02/02/18 13:59 01/27/18 11:50 30 MLS/HR Ethacrynic Acid (Edecrin Tab) 50 mg QAM PO 01/27/18 09:00 02/26/18 08:59 01/27/18 08:44 50 MG Pantoprazole Sodium (Protonix Tab) 40 mg QAM PO 01/28/18 09:00 02/27/18 08:59 Objective Vital Signs Date Time Temp Pulse Resp B/P (MAP) Pulse Ox O2 Delivery O2 Flow Rate FiO2 01/27/18 11:11 36.4 66 18 100 01/27/18 10:00 66 18 114/63 (80) 100 Room Air 01/27/18 08:00 Room Air 01/27/18 08:00 36.4 67 18 113/59 (77) 94 Room Air 01/27/18 06:01 64 18 103/57 (72) 97 01/27/18 05:01 64 96/50 (65) 98 01/27/18 04:42 36.4 65 16 116/50 (72) 98 01/27/18 04:00 Room Air 01/27/18 03:06 65 103/53 (70) 98 01/27/18 02:01 63 18 86/38 (54) 96 01/27/18 01:01 66 91/51 (64) 96 Room Air 01/27/18 00:01 36.4 63 16 85/45 (58) 98 Room Air 01/26/18 23:59 Room Air 01/26/18 23:01 66 100/55 (70) 100 Room Air 01/26/18 22:01 65 18 107/50 (69) 100 Room Air 01/26/18 21:02 65 115/39 (64) 100 Room Air 01/26/18 20:01 36.5 69 20 95/53 (67) 100 Room Air 01/26/18 20:00 Room Air 01/26/18 19:01 81 108/52 (70) 100 Room Air 01/26/18 18:00 74 18 112/63 (79) 98 Room Air 01/26/18 16:00 99 Room Air 01/26/18 16:00 36.6 64 18 104/53 (70) 99 Room Air 01/26/18 14:00 77 18 105/50 (68) 99 Room Air Physical Exam General Appearance: WD/WN, no apparent distress Eyes: normal inspection, PERRL, EOMI Neck: supple, no JVD, trachea midline Respiratory/Chest: normal breath sounds, no respiratory distress, no accessory muscle use Cardiovascular: regular rate, rhythm, no gallop, no murmur Abdomen: normal bowel sounds, non tender, soft Extremities: normal inspection, no pedal edema, no calf tenderness Neurologic/Psych: alert, normal mood/affect, oriented x 3 Skin: normal color, no jaundice, no rash Laboratory Results Last 24 Hours Test 01/26/18 14:47 01/26/18 16:59 01/26/18 20:45 01/26/18 20:48 Lactic Acid Level 1.3 mmol/L 2.0 mmol/L Total Creatine Kinase 35 U/L Creatine Kinase MB 2.2 ng/ml Creatine Kinase MB Ratio 6.3 Troponin I < 0.015 ng/ml Bedside Glucose 131 mg/dl 126 mg/dl Test 01/26/18 21:59 01/27/18 05:06 Total Creatine Kinase 33 U/L Creatine Kinase MB 2.0 ng/ml Creatine Kinase MB Ratio 6.1 Troponin I < 0.015 ng/ml White Blood Count 9.15 K/uL Red Blood Count 2.88 M/uL Hemoglobin 9.4 g/dL Hematocrit 28.3 % Mean Corpuscular Volume 98.3 fL Mean Corpuscular Hemoglobin 32.6 pg Mean Corpuscular Hemoglobin Concent 33.2 g/dl Platelet Count 180 K/uL Mean Platelet Volume 10.1 fL Neutrophils (%) (Auto) 89.1 % Lymphocytes (%) (Auto) 6.2 % Monocytes (%) (Auto) 4.2 % Eosinophils (%) (Auto) 0.1 % Basophils (%) (Auto) 0.0 % Neutrophils # (Auto) 8.15 K/uL Lymphocytes # (Auto) 0.57 K/uL Monocytes # (Auto) 0.38 K/uL Eosinophils # (Auto) 0.01 K/uL Basophils # (Auto) 0.00 K/uL RDW Standard Deviation 48.3 fL RDW Coefficient of Variation 13.5 % Immature Granulocyte % (Auto) 0.4 % Immature Granulocyte # (Auto) 0.04 K/uL Sodium Level 137 mmol/L Potassium Level 3.7 mmol/L Chloride Level 107 mmol/L Carbon Dioxide Level 21 mmol/L Anion Gap 9.0 mmol/L Blood Urea Nitrogen 49 mg/dl Creatinine 1.50 mg/dl Est Creatinine Clear Calc Drug Dose 27.8 ml/min Estimated GFR () 37.2 Estimated GFR (Non- 32.1 BUN/Creatinine Ratio 32.6 Random Glucose 126 mg/dl Calcium Level 7.8 mg/dl Phosphorus Level 2.9 mg/dl Magnesium Level 2.1 mg/dl Total Bilirubin 0.6 mg/dl Direct Bilirubin 0.2 mg/dl Aspartate Amino Transf (AST/SGOT) 14 U/L Alanine Aminotransferase (ALT/SGPT) 16 U/L Alkaline Phosphatase 46 U/L Total Protein 5.3 gm/dl Albumin 2.9 gm/dl Lipase 139 U/L Assessment and Plan Patient is a 82 year old female with n/v/diarrhea, hypotension, CORNELL, suspected to be in septic shock. CT abd/pelvis showed ileocolonic wall thickening concerning for inflammatory vs infectious colitis. Currently infectious workup pending. She does have hx of ischemic colitis and recurrent Cdiff s/p stool transplant in 07/2017. Repeat Cdiff negative. Plans - Continue Zosyn and Vancomycin - F/U stool cx, blood cx -> negative - F/U mesentery u/s -> mesentery artery stenosis; consulted Vascular Surgery - Ok for regular diet - Will follow along - no plans on endoscopic eval at this time. Last colonoscopy in 2015 (diverticulosis, hemorrhoids). - Call over weekend for any questions/concerns
--- NOTE | 2018-01-27 12:41 | Critical Care Progress Note ---
Critical Care Progress Note Date of Service Jan 27, 2018. Attending Dr. Kauffman Subjective The patient remains asymptomatic, she denies any abdominal pain, no nausea or vomiting, she is tolerating oral intake, she still having pain in her feet due to her neuropathy, the patient remains also opinionated about her medications. She feels that her watch and wristband is becoming tight due to fluid retention which she did in the past. She claims that she cannot take all the diuretics including Lasix and Bumex due to the sulfa allergy but she never been on them ever. Objective Physical exam on January 27, 2018, vital signs remain stable, S1-S2 regular rate and rhythm, distant breath sounds bilaterally, abdomen is soft benign no rebound and no tenderness, bowel sounds are positive, lower extremity edema was minimal, neurologically she is intact. Assessment & Plan 1. Chronic ischemic colitis. 2. History of scleroderma. 3. History of peripheral arterial disease interfering with her splanchnic perfusion. 4. COPD. 5. 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 6. Fluid overload. 7. history of C. difficile colitis. The patient insists on taking Vanco p.o. prophylactically. 8. Acute on chronic kidney insufficiency. Plan: 1. The patient is currently off pressors, her blood pressure been tolerated and normalized. 2. I will stop fentanyl for pain. 3. Change Protonix to p.o. 4. I will stop Tylenol IV. 5. The patient would like to be placed back again on her own diuretic which is ethacrynic acid. I will start 25 mg dose daily. If available. 6. The patient has no visible blood in the stool but she does have stool guaiac positive. 7. Hematocrit has been stable. 8. Discontinue Levophed as a patient did not require it. 9. Discontinue hydrocortisone. 10. Discontinue IV fluid. 11. Continue with DVT prophylaxis. 12. Transfer the patient to regular floor. 13. Discussed with the patient in details, all her questions been answered, discussed with the staff on rounds and details. 14. Appreciate Dr. Carrillo acceptance of this case to regular floor. Critical care time spent with the patient was 45 minutes Data Medications: Current Inpatient Medications Medications (Trade) Dose Ordered Sig/Herminia Route Start Time Stop Time Status Last Admin Dose Admin Miscellaneous Information (Consult) 1 ea UD PRN N/A 01/26/18 06:15 02/25/18 06:14 Ondansetron HCl (Zofran Inj) 4 mg Q6H PRN IV 01/26/18 06:15 02/25/18 06:14 Miscellaneous Information ([facility] Protocol For Hyperglycemia) 1 ea PRN PRN N/A 01/26/18 06:15 01/28/18 06:14 Atorvastatin Calcium (Lipitor Tab) 20 mg HS PO 01/26/18 21:00 02/25/18 20:59 01/26/18 20:33 20 MG Calcitriol (Rocaltrol Cap) 0.25 mcg QAM PO 01/26/18 09:00 02/25/18 08:59 01/27/18 07:43 0.25 MCG Leucovorin Calcium (Leucovorin Calcium Tab) 5 mg DAILY PO 01/26/18 09:00 02/25/18 08:59 01/27/18 07:44 5 MG Methimazole (Methimazole Tab) 2.5 mg QAM PO 01/26/18 09:00 02/25/18 08:59 01/27/18 07:43 2.5 MG Nitroglycerin (Nitrostat Tab) 0.4 mg UD PRN SL 01/26/18 06:15 02/25/18 06:14 Pregabalin (Lyrica Cap) 25 mg BID PO 01/26/18 09:00 02/25/18 08:59 01/27/18 07:46 25 MG Sodium Chloride (Sodium Chloride Tab) 1 gm BID PO 01/26/18 09:00 02/25/18 08:59 Heparin Sodium (Porcine) (Heparin 10 Unit/ ml 5 ml Flush) 5 ml PRN PRN FLUSH 01/26/18 13:30 02/25/18 13:29 01/27/18 08:44 5 ML Vancomycin HCl (Vancomycin Oral Soln) 250 mg Q6H PO 01/26/18 18:00 02/09/18 17:59 01/27/18 11:50 250 MG Raspberry (Raspberry Syrup 5ml Cup) 5 ml Q6H PO 01/26/18 18:00 02/09/18 17:59 01/27/18 11:50 5 ML Piperacillin Sod/ Tazobactam Sod 4.5 gm/Dextrose 120 ml @ 30 mls/hr Q8H IV 01/27/18 10:00 02/02/18 13:59 01/27/18 11:50 30 MLS/HR Ethacrynic Acid (Edecrin Tab) 50 mg QAM PO 01/27/18 09:00 02/26/18 08:59 01/27/18 08:44 50 MG Pantoprazole Sodium (Protonix Tab) 40 mg QAM PO 01/28/18 09:00 02/27/18 08:59 Vital Signs: Date Time Temp Pulse Resp B/P (MAP) Pulse Ox O2 Delivery O2 Flow Rate FiO2 01/27/18 12:21 36.7 66 19 122/60 (80) 99 Room Air 01/27/18 11:11 36.4 66 18 100 01/27/18 10:00 66 18 114/63 (80) 100 Room Air 01/27/18 08:00 Room Air 01/27/18 08:00 36.4 67 18 113/59 (77) 94 Room Air 01/27/18 06:01 64 18 103/57 (72) 97 01/27/18 05:01 64 96/50 (65) 98 01/27/18 04:42 36.4 65 16 116/50 (72) 98 01/27/18 04:00 Room Air 01/27/18 03:06 65 103/53 (70) 98 01/27/18 02:01 63 18 86/38 (54) 96 01/27/18 01:01 66 91/51 (64) 96 Room Air 01/27/18 00:01 36.4 63 16 85/45 (58) 98 Room Air 01/26/18 23:59 Room Air 01/26/18 23:01 66 100/55 (70) 100 Room Air 01/26/18 22:01 65 18 107/50 (69) 100 Room Air 01/26/18 21:02 65 115/39 (64) 100 Room Air 01/26/18 20:01 36.5 69 20 95/53 (67) 100 Room Air 01/26/18 20:00 Room Air 01/26/18 19:01 81 108/52 (70) 100 Room Air 01/26/18 18:00 74 18 112/63 (79) 98 Room Air 01/26/18 16:00 99 Room Air 01/26/18 16:00 36.6 64 18 104/53 (70) 99 Room Air 01/26/18 14:00 77 18 105/50 (68) 99 Room Air Laboratory Results: Last 24 Hours Test 01/26/18 14:47 01/26/18 16:59 01/26/18 20:45 01/26/18 20:48 Lactic Acid Level 1.3 mmol/L 2.0 mmol/L Total Creatine Kinase 35 U/L Creatine Kinase MB 2.2 ng/ml Creatine Kinase MB Ratio 6.3 Troponin I < 0.015 ng/ml Bedside Glucose 131 mg/dl 126 mg/dl Test 01/26/18 21:59 01/27/18 05:06 Total Creatine Kinase 33 U/L Creatine Kinase MB 2.0 ng/ml Creatine Kinase MB Ratio 6.1 Troponin I < 0.015 ng/ml White Blood Count 9.15 K/uL Red Blood Count 2.88 M/uL Hemoglobin 9.4 g/dL Hematocrit 28.3 % Mean Corpuscular Volume 98.3 fL Mean Corpuscular Hemoglobin 32.6 pg Mean Corpuscular Hemoglobin Concent 33.2 g/dl Platelet Count 180 K/uL Mean Platelet Volume 10.1 fL Neutrophils (%) (Auto) 89.1 % Lymphocytes (%) (Auto) 6.2 % Monocytes (%) (Auto) 4.2 % Eosinophils (%) (Auto) 0.1 % Basophils (%) (Auto) 0.0 % Neutrophils # (Auto) 8.15 K/uL Lymphocytes # (Auto) 0.57 K/uL Monocytes # (Auto) 0.38 K/uL Eosinophils # (Auto) 0.01 K/uL Basophils # (Auto) 0.00 K/uL RDW Standard Deviation 48.3 fL RDW Coefficient of Variation 13.5 % Immature Granulocyte % (Auto) 0.4 % Immature Granulocyte # (Auto) 0.04 K/uL Sodium Level 137 mmol/L Potassium Level 3.7 mmol/L Chloride Level 107 mmol/L Carbon Dioxide Level 21 mmol/L Anion Gap 9.0 mmol/L Blood Urea Nitrogen 49 mg/dl Creatinine 1.50 mg/dl Est Creatinine Clear Calc Drug Dose 27.8 ml/min Estimated GFR () 37.2 Estimated GFR (Non- 32.1 BUN/Creatinine Ratio 32.6 Random Glucose 126 mg/dl Calcium Level 7.8 mg/dl Phosphorus Level 2.9 mg/dl Magnesium Level 2.1 mg/dl Total Bilirubin 0.6 mg/dl Direct Bilirubin 0.2 mg/dl Aspartate Amino Transf (AST/SGOT) 14 U/L Alanine Aminotransferase (ALT/SGPT) 16 U/L Alkaline Phosphatase 46 U/L Total Protein 5.3 gm/dl Albumin 2.9 gm/dl Lipase 139 U/L
[2018-01-27] MEDS ORDERED: NURSING VERBAL MED ORDER ONE ×2 (15:00)
[2018-01-27] MEDS: FLUTICASONE PROPIONATE NA SPR 16 GM BTL NAE SCH (16:06)
[2018-01-27] MEDS: ACETAMINOPHEN 500 MG TAB PO PRN (16:07)
[2018-01-27] MEDS ORDERED: ASPIRIN 81 MG CHEW PO STA (17:13)
--- NOTE | 2018-01-27 17:13 | Progress Note ---
Subjective Date of Service: Jan 27, 2018. Subjective Patient is feeling improved however still having of lower abdominal pain is concerned about advancing her diet and wishes to stay with a more soft diet she also requests to start aspirin therapy Problem List Medical Problems: (1) Abdominal pain Status: Acute (2) Abdominal pain Status: Acute (3) Acute renal failure Status: Acute (4) Back pain Status: Acute (5) Benign hypertension Status: Chronic (6) Chronic congestive heart failure Status: Chronic (7) Dehydration Status: Acute (8) Elevated lactic acid level Status: Acute (9) Gastroesophageal reflux disease Status: Chronic (10) Hyperlipidemia Status: Chronic (11) Hypotension Status: Acute (12) Hypotension Status: Acute (13) Hypotension Status: Acute (14) Ischemic colitis Status: Acute (15) Ischemic colitis Status: Acute (16) Ischemic colitis Status: Acute (17) Left sided chest pain Status: Acute (18) Rectal bleed Status: Acute (19) Rib pain Status: Acute (20) Severe sepsis with septic shock Status: Acute (21) Weakness Status: Acute Review of Systems Constitutional: No fever, No chills, No weakness, No fatigue Respiratory: No cough, No wheezing, No shortness of breath Cardiac: No chest pain, No PND, No edema Abdomen: No pain, No nausea, No vomiting, No diarrhea Musculoskeletal: No joint pain, No muscle pain Psychiatric: No depression symptoms, No anhedonism Objective Vital Signs Date Time Temp Pulse Resp B/P (MAP) Pulse Ox O2 Delivery O2 Flow Rate FiO2 01/27/18 12:21 36.7 66 19 122/60 (80) 99 Room Air 01/27/18 12:00 Room Air 01/27/18 11:11 36.4 66 18 100 01/27/18 10:00 66 18 114/63 (80) 100 Room Air 01/27/18 08:00 Room Air 01/27/18 08:00 36.4 67 18 113/59 (77) 94 Room Air 01/27/18 06:01 64 18 103/57 (72) 97 01/27/18 05:01 64 96/50 (65) 98 01/27/18 04:42 36.4 65 16 116/50 (72) 98 01/27/18 04:00 Room Air 01/27/18 03:06 65 103/53 (70) 98 01/27/18 02:01 63 18 86/38 (54) 96 01/27/18 01:01 66 91/51 (64) 96 Room Air 01/27/18 00:01 36.4 63 16 85/45 (58) 98 Room Air 01/26/18 23:59 Room Air 01/26/18 23:01 66 100/55 (70) 100 Room Air 01/26/18 22:01 65 18 107/50 (69) 100 Room Air 01/26/18 21:02 65 115/39 (64) 100 Room Air 01/26/18 20:01 36.5 69 20 95/53 (67) 100 Room Air 01/26/18 20:00 Room Air 01/26/18 19:01 81 108/52 (70) 100 Room Air 01/26/18 18:00 74 18 112/63 (79) 98 Room Air Physical Exam General Appearance: WD/WN, + mild distress Eyes: PERRL, EOMI Neck: supple, no JVD Respiratory/Chest: chest non-tender, lungs clear, + decreased breath sounds ( Bases) Cardiovascular: regular rate, rhythm, + systolic murmur Abdomen: normal bowel sounds, soft, + tenderness (Lower quadrants) Neurologic/Psychiatric: alert, oriented x 3 Laboratory Results Last 24 Hours Test 01/26/18 20:45 01/26/18 20:48 01/26/18 21:59 01/27/18 05:06 Lactic Acid Level 2.0 mmol/L Bedside Glucose 126 mg/dl Total Creatine Kinase 33 U/L Creatine Kinase MB 2.0 ng/ml Creatine Kinase MB Ratio 6.1 Troponin I < 0.015 ng/ml White Blood Count 9.15 K/uL Red Blood Count 2.88 M/uL Hemoglobin 9.4 g/dL Hematocrit 28.3 % Mean Corpuscular Volume 98.3 fL Mean Corpuscular Hemoglobin 32.6 pg Mean Corpuscular Hemoglobin Concent 33.2 g/dl Platelet Count 180 K/uL Mean Platelet Volume 10.1 fL Neutrophils (%) (Auto) 89.1 % Lymphocytes (%) (Auto) 6.2 % Monocytes (%) (Auto) 4.2 % Eosinophils (%) (Auto) 0.1 % Basophils (%) (Auto) 0.0 % Neutrophils # (Auto) 8.15 K/uL Lymphocytes # (Auto) 0.57 K/uL Monocytes # (Auto) 0.38 K/uL Eosinophils # (Auto) 0.01 K/uL Basophils # (Auto) 0.00 K/uL RDW Standard Deviation 48.3 fL RDW Coefficient of Variation 13.5 % Immature Granulocyte % (Auto) 0.4 % Immature Granulocyte # (Auto) 0.04 K/uL Sodium Level 137 mmol/L Potassium Level 3.7 mmol/L Chloride Level 107 mmol/L Carbon Dioxide Level 21 mmol/L Anion Gap 9.0 mmol/L Blood Urea Nitrogen 49 mg/dl Creatinine 1.50 mg/dl Est Creatinine Clear Calc Drug Dose 27.8 ml/min Estimated GFR () 37.2 Estimated GFR (Non- 32.1 BUN/Creatinine Ratio 32.6 Random Glucose 126 mg/dl Calcium Level 7.8 mg/dl Phosphorus Level 2.9 mg/dl Magnesium Level 2.1 mg/dl Total Bilirubin 0.6 mg/dl Direct Bilirubin 0.2 mg/dl Aspartate Amino Transf (AST/SGOT) 14 U/L Alanine Aminotransferase (ALT/SGPT) 16 U/L Alkaline Phosphatase 46 U/L Total Protein 5.3 gm/dl Albumin 2.9 gm/dl Lipase 139 U/L Assessment and Plan 82-year-old female with with shock secondary to l ischemic colitis. Initially received aggressive IV fluid resuscitation without improvement in blood pressure. Eventually requiring vasopressors for blood pressure support. Ischemic colitis and shock as source of Abdominal pain, N/V/D, has a h/o Ischemic Colitis, Zosyn/vanc, Vanc PO w/ severe h/o C. diff, initial pressor support with levophed, now off stool and blood cultures do not support active infection however the patient is markedly anxious regarding this he believes the whole issue is because of recurrent ischemic colitis we are starting aspirin therapy Depression -she seems like her anxiety is in continuing however we will also continue home Rx Hypotension h/o CAD.Trend patient has regained blood pressure control however we have not resumed her home medications he is a likely begin on 324 CORNELL, volume resuscitation, Normosol@100mL/hr likely begin ethacrynic acid soon stopping IV fluids adrenal suppression from chronic steroid use, did have steroids on presentation will resume oral steroids on 01/28 DVT PROPHYLAXIS -Heparin sq BID
[2018-01-27] MEDS: ATORVASTATIN 20 MG TAB PO SCH (21:58)
[2018-01-28] VITALS (8 sets, daily range): BP systolic 102–128; BP diastolic 37–65; PULSE 66–71; TEMP 36.5–36.8; O2SAT 96–99
[2018-01-28] MEDS: RASPBERRY SYRUP 5 ML UDP PO SCH ×5 (00:06→23:39)
[2018-01-28] MEDS: VANCOMYCIN HCL 250 MG/5 ML SOLN PO SCH ×5 (00:06→23:39)
[2018-01-28] MEDS: PIPERACILL/TAZOBAC IV 4.5 GM in DEXTROSE 5% 100ML IV SCH ×3 (02:16→18:30)
[2018-01-28 04:31] LABS: BASO % 0.3 %; BASO ABS # 0.02 K/uL (0-0.2); EOS % 2.4 %; EOS ABS # 0.18 K/uL (0-0.5); HEMATOCRIT 27.8 % (37-47); IG# 0.04 K/uL (0.00-0.02); LYMPH % 26.7 %; LYMPH ABS # 2.04 K/uL (1.2-3.4); MEAN CELL VOLUME 97.9 fL (80-100); MEAN CORPUSCULAR HEMOGLOBIN 31.7 pg (25-34); MEAN CORPUSCULAR HGB CONC 32.4 g/dl (32-36); MEAN PLATELET VOLUME 9.7 fL (7.4-10.4); MONO % 8.3 %; MONO ABS # 0.63 K/uL (0.11-0.59); NEUT % 61.8 %; NEUT ABS # 4.72 K/uL (1.4-6.5); PLATELET COUNT 151 K/uL (130-400); RED CELL DISTRIBUTION WIDTH CV 13.5 % (11.5-14.5); RED CELL DISTRIBUTION WIDTH SD 48.1 fL (36.4-46.3); WHITE BLOOD COUNT 7.63 K/uL (4.8-10.8)
[2018-01-28 04:47] LABS: ALBUMIN 2.6 gm/dl (3.4-5.0); CALCIUM 7.7 mg/dl (8.5-10.1); CREATININE 1.48 mg/dl (0.60-1.20); POTASSIUM 3.2 mmol/L (3.5-5.1)
[2018-01-28 04:51] LABS: PHOSPHORUS 2.6 mg/dl (2.5-4.9)
[2018-01-28] MEDS ORDERED: SODIUM CHLORIDE 0.65% NA SOLN 45 ML (OCEAN) PRN (06:45)
--- NOTE | 2018-01-28 07:09 | DIAGNOSTIC IMAGING REPORT ---
CHEST ONE VIEW PORTABLE CLINICAL HISTORY: chf dyspnea COMPARISON STUDY: 01/27/2018 FINDINGS: Central catheter remains in superior vena cava. Lungs remain clear. Diaphragms smooth. IMPRESSION: No acute process. Lungs remain clear. The above report was generated using voice recognition software. It may contain grammatical, syntax or spelling errors. Electronically signed by: Donte Mar M.D. 01/28/2018 7:08 AM Dictated Date/Time: 01/28/2018 7:07 AM
[2018-01-28] MEDS: PANTOprazole SOD 40 MG TAB PO SCH (07:38)
[2018-01-28] MEDS: METHIMAZOLE 5 MG TAB PO SCH (07:38)
[2018-01-28] MEDS: CALCITRIOL 0.25 MCG CAP PO SCH (07:38)
[2018-01-28] MEDS: LEUCOVORIN CALCIUM 5 MG TAB PO SCH (07:38)
[2018-01-28] MEDS: METOPROLOL TARTRATE 25 MG TAB PO SCH ×2 (07:38→22:05)
[2018-01-28] MEDS: ETHACRYNIC ACID 25 MG TAB PO SCH (07:39)
[2018-01-28] MEDS: ASPIRIN 81 MG ECTAB PO SCH (07:40)
[2018-01-28] MEDS: FLUTICASONE PROPIONATE NA SPR 16 GM BTL NAE SCH (07:40)
[2018-01-28] MEDS: PREGABALIN 25MG CAP PO SCH ×2 (07:48→22:04)
--- NOTE | 2018-01-28 08:03 | Progress Note ---
Subjective Date of Service: Jan 28, 2018. Subjective this pt is having some somatic complaints mostly revolving around a sore throat and some abdominal discomfort associated with eating. she is tolerating some po intake and has no viable issues seen on exam in her throat or ears Problem List Medical Problems: (1) Abdominal pain Status: Acute (2) Abdominal pain Status: Acute (3) Acute renal failure Status: Acute (4) Back pain Status: Acute (5) Benign hypertension Status: Chronic (6) Chronic congestive heart failure Status: Chronic (7) Dehydration Status: Acute (8) Elevated lactic acid level Status: Acute (9) Gastroesophageal reflux disease Status: Chronic (10) Hyperlipidemia Status: Chronic (11) Hypotension Status: Acute (12) Hypotension Status: Acute (13) Hypotension Status: Acute (14) Ischemic colitis Status: Acute (15) Ischemic colitis Status: Acute (16) Ischemic colitis Status: Acute (17) Left sided chest pain Status: Acute (18) Rectal bleed Status: Acute (19) Rib pain Status: Acute (20) Severe sepsis with septic shock Status: Acute (21) Weakness Status: Acute Review of Systems Constitutional: No fever, No chills, No weakness ENT: + sore throat Respiratory: No cough, No shortness of breath Cardiac: No chest pain, No edema Abdomen: + pain, No nausea, No vomiting, No diarrhea Musculoskeletal: No joint pain, No muscle pain Female : No dysuria, No urinary frequency Neurologic: No memory loss, No paralysis Objective Vital Signs Date Time Temp Pulse Resp B/P (MAP) Pulse Ox O2 Delivery O2 Flow Rate FiO2 01/28/18 07:35 36.8 71 16 102/55 (71) 98 Room Air 01/28/18 04:00 Room Air 01/28/18 03:55 36.8 66 18 112/53 (72) 97 Room Air 01/28/18 00:45 36.6 69 17 108/37 (60) 96 Room Air 01/28/18 00:00 Room Air 01/27/18 20:00 Room Air 01/27/18 19:38 36.4 66 16 96/62 (73) 98 Room Air 01/27/18 16:00 36.3 61 18 114/58 (76) 94 Room Air 01/27/18 16:00 Room Air 01/27/18 12:21 36.7 66 19 122/60 (80) 99 Room Air 01/27/18 12:00 Room Air 01/27/18 11:11 36.4 66 18 100 01/27/18 10:00 66 18 114/63 (80) 100 Room Air Physical Exam General Appearance: WD/WN, + mild distress Eyes: normal inspection, sclerae normal ENT: TMs normal, pharynx normal Neck: supple, no JVD Respiratory/Chest: chest non-tender, lungs clear, normal breath sounds Cardiovascular: regular rate, rhythm, no murmur Abdomen: non tender, soft Extremities: no pedal edema, no calf tenderness Neurologic/Psychiatric: alert, oriented x 3 Laboratory Results Last 24 Hours Test 01/28/18 04:16 White Blood Count 7.63 K/uL Red Blood Count 2.84 M/uL Hemoglobin 9.0 g/dL Hematocrit 27.8 % Mean Corpuscular Volume 97.9 fL Mean Corpuscular Hemoglobin 31.7 pg Mean Corpuscular Hemoglobin Concent 32.4 g/dl Platelet Count 151 K/uL Mean Platelet Volume 9.7 fL Neutrophils (%) (Auto) 61.8 % Lymphocytes (%) (Auto) 26.7 % Monocytes (%) (Auto) 8.3 % Eosinophils (%) (Auto) 2.4 % Basophils (%) (Auto) 0.3 % Neutrophils # (Auto) 4.72 K/uL Lymphocytes # (Auto) 2.04 K/uL Monocytes # (Auto) 0.63 K/uL Eosinophils # (Auto) 0.18 K/uL Basophils # (Auto) 0.02 K/uL RDW Standard Deviation 48.1 fL RDW Coefficient of Variation 13.5 % Immature Granulocyte % (Auto) 0.5 % Immature Granulocyte # (Auto) 0.04 K/uL Sodium Level 138 mmol/L Potassium Level 3.2 mmol/L Chloride Level 106 mmol/L Carbon Dioxide Level 24 mmol/L Anion Gap 8.0 mmol/L Blood Urea Nitrogen 38 mg/dl Creatinine 1.48 mg/dl Est Creatinine Clear Calc Drug Dose 28.2 ml/min Estimated GFR () 37.8 Estimated GFR (Non- 32.6 BUN/Creatinine Ratio 25.4 Random Glucose 87 mg/dl Calcium Level 7.7 mg/dl Phosphorus Level 2.6 mg/dl Magnesium Level 1.9 mg/dl Total Bilirubin 0.4 mg/dl Direct Bilirubin 0.1 mg/dl Aspartate Amino Transf (AST/SGOT) 13 U/L Alanine Aminotransferase (ALT/SGPT) 14 U/L Alkaline Phosphatase 43 U/L Total Protein 5.0 gm/dl Albumin 2.6 gm/dl Lipase 207 U/L Assessment and Plan 82-year-old female with with shock secondary to l ischemic colitis. Initially received aggressive IV fluid resuscitation without improvement in blood pressure. Eventually requiring vasopressors for blood pressure support. Ischemic colitis and shock as source of Abdominal pain, Zosyn Vanc PO w/ severe h/o C. diff, initial pressor support with levophed, now off stool and blood cultures do not support active infection however the patient is markedly anxious regarding recurrent ischemic colitis we are starting aspirin therapy Hypotension h/o CAD. 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
[2018-01-28] MEDS ORDERED: MAGNESIUM SULFATE 1GM / D5W 1 GM in PREMIXED IN D5W 100 ML IV ONE (08:05)
[2018-01-28] MEDS: SODIUM CHLORIDE 1 GM TAB PO SCH ×3 (08:25→22:08)
[2018-01-28] MEDS: POTASSIUM CHLR 10 MEQ / WTR 10 MEQ in PREMIXED WATER 100 ML IV SCH ×3 (08:25→11:43)
[2018-01-28] MEDS ORDERED: PANTOprazole SOD 40 MG TAB PO SCH (09:00)
[2018-01-28] MEDS ORDERED: COUGH DROP (SUGAR FREE) LOZ 24 LOZ/1 BOX LOZ PRN (12:45)
--- NOTE | 2018-01-28 20:42 | Progress Note ---
Post ICU Progress Note Date & Time Jan 28, 2018 at 20:42 Vital Signs Vital Signs Past 12 Hours Date Time Temp Pulse Resp B/P (MAP) Pulse Ox O2 Delivery O2 Flow Rate FiO2 01/28/18 20:00 97 Room Air 01/28/18 19:10 36.7 68 18 128/65 (86) 97 Room Air 01/28/18 16:00 97 Room Air 01/28/18 15:41 36.5 67 18 120/65 (83) 97 Room Air 01/28/18 12:00 Room Air 01/28/18 11:44 36.5 67 20 123/42 (69) 99 Room Air Notes Mental Status: alert / awake Nausea / Vomiting: adequately controlled Pain: adequately controlled Airway Patency, RR, SpO2: stable & adequate BP & HR: stable & adequate Patient is an 82-year-old female who was initially admitted to the ICU in septic shock. She required vasopressors for approximately 12 hours. Eventually , the patient responded to IV fluid resuscitation as well as aggressive antibiotic therapy. She remained in the ICU overnight without event. She was downgraded the next day and has remained in the telemetry floor since. On review of her records, she has had no further episodes of hypotension. She was restarted back on her blood pressure medications. Her white count has improved and her lactic acid is normalized. Her CORNELL on presentation has continued to improve with IV fluids as well. On evaluation, the patient clinically appears much better. She seems fixated on her history of C. difficile infections. She reports multiple loose stools today. She is currently on oral vancomycin. She is requesting repeat stool cultures to be obtained as she is concerned that she is developing recurrent C. difficile infection. Overall, however, the patient reports feeling much better and offers no complaints to me otherwise. Consider outpatient follow up in 1 to 2 weeks with: PCP, GI Repeat imaging needed: May consider repeat imaging of the abdomen if her diarrhea/abdominal pain persist, particularly with her h/o abdominal infections. Follow up cultures: Will defer to primary team/GI for opinion as to utility in repeat C. Diff cultures at this point. I see no need for them at this point. Reviewed progress notes, labs, and inpatient medication list Continue current management Additional recommendations: As above. Her K+ has continued to decline. This has been addressed w/ IV KCl. Consider PO supplementation as patient tolerates. Thank you for allowing us to participate in the care of this patient. At this point, Critical Care Services will sign off on this case. Please feel free to reconsult as needed. Consults & Procedures Consultants: ROSALINA French
[2018-01-28] MEDS: ATORVASTATIN 20 MG TAB PO SCH (22:04)
[2018-01-29] MEDS: PIPERACILL/TAZOBAC IV 4.5 GM in DEXTROSE 5% 100ML IV SCH (02:50)
[2018-01-29 04:00] VITALS: BP 140/60; PULSE 75; TEMP 36.5; O2SAT 96
[2018-01-29 04:43] LABS: BASO % 0.3 %; BASO ABS # 0.02 K/uL (0-0.2); EOS % 3.2 %; EOS ABS # 0.23 K/uL (0-0.5); HEMATOCRIT 29.1 % (37-47); HEMOGLOBIN 9.6 g/dL (12.0-16.0); IG# 0.06 K/uL (0.00-0.02); LYMPH % 26.2 %; LYMPH ABS # 1.87 K/uL (1.2-3.4); MEAN CELL VOLUME 96.7 fL (80-100); MEAN CORPUSCULAR HEMOGLOBIN 31.9 pg (25-34); MEAN PLATELET VOLUME 9.7 fL (7.4-10.4); MONO ABS # 0.64 K/uL (0.11-0.59); NEUT % 60.5 %; NEUT ABS # 4.31 K/uL (1.4-6.5); PLATELET COUNT 147 K/uL (130-400); RED CELL DISTRIBUTION WIDTH CV 13.5 % (11.5-14.5); RED CELL DISTRIBUTION WIDTH SD 47.5 fL (36.4-46.3); WHITE BLOOD COUNT 7.13 K/uL (4.8-10.8)
[2018-01-29 05:17] LABS: ALBUMIN 2.6 gm/dl (3.4-5.0); CALCIUM 8.4 mg/dl (8.5-10.1); CREATININE 1.29 mg/dl (0.60-1.20); POTASSIUM 3.5 mmol/L (3.5-5.1)
[2018-01-29 05:21] LABS: PHOSPHORUS 2.6 mg/dl (2.5-4.9); TOTAL PROTEIN 5.3 gm/dl (6.4-8.2)
[2018-01-29] MEDS: RASPBERRY SYRUP 5 ML UDP PO SCH ×3 (06:16→18:06)
[2018-01-29] MEDS: VANCOMYCIN HCL 250 MG/5 ML SOLN PO SCH ×3 (07:06→18:06)
[2018-01-29 07:44] VITALS: BP 138/68; PULSE 62; TEMP 36.3; O2SAT 97
[2018-01-29] MEDS: SODIUM CHLORIDE 1 GM TAB PO SCH (07:58)
[2018-01-29] MEDS: METOPROLOL TARTRATE 25 MG TAB PO SCH ×2 (07:59→20:35)
[2018-01-29] MEDS: CALCITRIOL 0.25 MCG CAP PO SCH (07:59)
[2018-01-29] MEDS: PANTOprazole SOD 40 MG TAB PO SCH (07:59)
[2018-01-29] MEDS: LEUCOVORIN CALCIUM 5 MG TAB PO SCH (08:00)
[2018-01-29] MEDS: LORATADINE 10 MG TAB PO SCH (08:00)
[2018-01-29] MEDS: ASPIRIN 81 MG ECTAB PO SCH (08:00)
[2018-01-29] MEDS: METHIMAZOLE 5 MG TAB PO SCH (08:01)
[2018-01-29] MEDS: FLUTICASONE PROPIONATE NA SPR 16 GM BTL NAE SCH (08:02)
[2018-01-29] MEDS: POLYETHYLENE (MIRALAX) 17 GM PACK PO SCH (08:03)
[2018-01-29] MEDS: PREGABALIN 25MG CAP PO SCH ×2 (08:08→20:35)
[2018-01-29] MEDS: ETHACRYNIC ACID 25 MG TAB PO SCH (08:12)
[2018-01-29] MEDS ORDERED: ETHACRYNIC ACID 25 MG TAB PO ONE (10:00)
[2018-01-29] MEDS: AMOXICILLIN/CLAVULANATE TAB 500 MG TAB PO SCH ×2 (10:21→16:57)
[2018-01-29 11:55] VITALS: BP 126/71; PULSE 57; TEMP 36.6; O2SAT 100
--- NOTE | 2018-01-29 14:11 | Progress Note ---
Subjective Date of Service: Jan 29, 2018. Subjective this pt is doing better each day she has desire to get her william out, she has some persistent abdominal pain and intermittent diarrhea Problem List Medical Problems: (1) Abdominal pain Status: Acute (2) Abdominal pain Status: Acute (3) Acute renal failure Status: Acute (4) Back pain Status: Acute (5) Benign hypertension Status: Chronic (6) Chronic congestive heart failure Status: Chronic (7) Dehydration Status: Acute (8) Elevated lactic acid level Status: Acute (9) Gastroesophageal reflux disease Status: Chronic (10) Hyperlipidemia Status: Chronic (11) Hypotension Status: Acute (12) Hypotension Status: Acute (13) Hypotension Status: Acute (14) Ischemic colitis Status: Acute (15) Ischemic colitis Status: Acute (16) Ischemic colitis Status: Acute (17) Left sided chest pain Status: Acute (18) Rectal bleed Status: Acute (19) Rib pain Status: Acute (20) Severe sepsis with septic shock Status: Acute (21) Weakness Status: Acute Review of Systems Constitutional: + weakness, No fever, No chills, No fatigue Respiratory: No cough, No shortness of breath, No dyspnea on exertion Cardiac: No chest pain, No edema Abdomen: + pain, + diarrhea, No nausea, No vomiting Female : No dysuria, No urinary frequency, No hematuria Objective Vital Signs Date Time Temp Pulse Resp B/P (MAP) Pulse Ox O2 Delivery O2 Flow Rate FiO2 01/29/18 04:00 36.5 75 16 140/60 (86) 96 Room Air 01/29/18 04:00 Room Air 01/28/18 23:59 Room Air 01/28/18 20:00 97 Room Air 01/28/18 19:10 36.7 68 18 128/65 (86) 97 Room Air 01/28/18 16:00 97 Room Air 01/28/18 15:41 36.5 67 18 120/65 (83) 97 Room Air 01/28/18 12:00 Room Air 01/28/18 11:44 36.5 67 20 123/42 (69) 99 Room Air 01/28/18 08:00 Room Air 01/28/18 07:35 36.8 71 16 102/55 (71) 98 Room Air Physical Exam General Appearance: WD/WN, + mild distress Eyes: normal inspection, sclerae normal Neck: supple, no JVD Respiratory/Chest: chest non-tender, lungs clear Cardiovascular: regular rate, rhythm, no murmur Abdomen: normal bowel sounds, soft Extremities: no pedal edema, no calf tenderness Neurologic/Psychiatric: alert, oriented x 3 Laboratory Results Last 24 Hours Test 01/28/18 17:50 01/29/18 04:20 Stool Occult Blood POSITIVE White Blood Count 7.13 K/uL Red Blood Count 3.01 M/uL Hemoglobin 9.6 g/dL Hematocrit 29.1 % Mean Corpuscular Volume 96.7 fL Mean Corpuscular Hemoglobin 31.9 pg Mean Corpuscular Hemoglobin Concent 33.0 g/dl Platelet Count 147 K/uL Mean Platelet Volume 9.7 fL Neutrophils (%) (Auto) 60.5 % Lymphocytes (%) (Auto) 26.2 % Monocytes (%) (Auto) 9.0 % Eosinophils (%) (Auto) 3.2 % Basophils (%) (Auto) 0.3 % Neutrophils # (Auto) 4.31 K/uL Lymphocytes # (Auto) 1.87 K/uL Monocytes # (Auto) 0.64 K/uL Eosinophils # (Auto) 0.23 K/uL Basophils # (Auto) 0.02 K/uL RDW Standard Deviation 47.5 fL RDW Coefficient of Variation 13.5 % Immature Granulocyte % (Auto) 0.8 % Immature Granulocyte # (Auto) 0.06 K/uL Sodium Level 142 mmol/L Potassium Level 3.5 mmol/L Chloride Level 109 mmol/L Carbon Dioxide Level 25 mmol/L Anion Gap 8.0 mmol/L Blood Urea Nitrogen 29 mg/dl Creatinine 1.29 mg/dl Est Creatinine Clear Calc Drug Dose 32.7 ml/min Estimated GFR () 44.7 Estimated GFR (Non- 38.5 BUN/Creatinine Ratio 22.8 Random Glucose 89 mg/dl Calcium Level 8.4 mg/dl Phosphorus Level 2.6 mg/dl Magnesium Level 1.8 mg/dl Total Bilirubin 0.5 mg/dl Direct Bilirubin 0.1 mg/dl Aspartate Amino Transf (AST/SGOT) 13 U/L Alanine Aminotransferase (ALT/SGPT) 14 U/L Alkaline Phosphatase 43 U/L Total Protein 5.3 gm/dl Albumin 2.6 gm/dl Lipase 185 U/L Assessment and Plan 82-year-old female with with shock secondary to l ischemic colitis. Initially received aggressive IV fluid resuscitation without improvement in blood pressure. Eventually requiring vasopressors for blood pressure support. Ischemic colitis and shock as source of Abdominal pain, Zosyn Vanc PO w/ severe h/o C. diff, initial pressor support with levophed, now off, stool and blood cultures do not support active infection however the patient is markedly anxious regarding c diff and requests to be on po vancomycin recurrent ischemic colitis we are starting aspirin therapy Hypotension h/o CAD. 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
[2018-01-29 15:27] VITALS: BP 136/78; PULSE 62; TEMP 36.7; O2SAT 97
[2018-01-29 16:00] VITALS: O2SAT 97
[2018-01-29 19:46] VITALS: BP 125/64; PULSE 63; TEMP 37.1; O2SAT 96
[2018-01-29] MEDS: ATORVASTATIN 20 MG TAB PO SCH (20:36)
[2018-01-29] MEDS: LISINOPRIL 10 MG TAB PO SCH (20:36)
[2018-01-30] VITALS (9 sets, daily range): BP systolic 114–138; BP diastolic 56–85; PULSE 56–76; TEMP 36.3–37.4; O2SAT 97–99
[2018-01-30] MEDS: RASPBERRY SYRUP 5 ML UDP PO SCH ×4 (00:17→18:03)
[2018-01-30] MEDS: VANCOMYCIN HCL 250 MG/5 ML SOLN PO SCH ×4 (00:17→18:03)
[2018-01-30 04:47] LABS: BASO % 0.3 %; BASO ABS # 0.03 K/uL (0-0.2); EOS % 3.5 %; HEMATOCRIT 31.3 % (37-47); HEMOGLOBIN 10.4 g/dL (12.0-16.0); IG# 0.13 K/uL (0.00-0.02); LYMPH % 25.1 %; LYMPH ABS # 2.15 K/uL (1.2-3.4); MEAN CELL VOLUME 96.9 fL (80-100); MEAN CORPUSCULAR HEMOGLOBIN 32.2 pg (25-34); MEAN CORPUSCULAR HGB CONC 33.2 g/dl (32-36); MEAN PLATELET VOLUME 9.8 fL (7.4-10.4); MONO % 9.7 %; MONO ABS # 0.83 K/uL (0.11-0.59); NEUT % 59.9 %; NEUT ABS # 5.14 K/uL (1.4-6.5); PLATELET COUNT 159 K/uL (130-400); RED CELL DISTRIBUTION WIDTH CV 13.3 % (11.5-14.5); RED CELL DISTRIBUTION WIDTH SD 47.4 fL (36.4-46.3); WHITE BLOOD COUNT 8.58 K/uL (4.8-10.8)
[2018-01-30 05:07] LABS: ALBUMIN 2.9 gm/dl (3.4-5.0); CALCIUM 8.8 mg/dl (8.5-10.1); CREATININE 1.24 mg/dl (0.60-1.20); POTASSIUM 3.3 mmol/L (3.5-5.1)
[2018-01-30 05:18] LABS: PHOSPHORUS 3.3 mg/dl (2.5-4.9); TOTAL PROTEIN 5.6 gm/dl (6.4-8.2)
[2018-01-30] MEDS: POLYETHYLENE (MIRALAX) 17 GM PACK PO SCH (08:15)
[2018-01-30] MEDS: CALCITRIOL 0.25 MCG CAP PO SCH (08:16)
[2018-01-30] MEDS: LORATADINE 10 MG TAB PO SCH (08:17)
[2018-01-30] MEDS: ETHACRYNIC ACID 25 MG TAB PO SCH (08:17)
[2018-01-30] MEDS: PANTOprazole SOD 40 MG TAB PO SCH (08:17)
[2018-01-30] MEDS: METOPROLOL TARTRATE 25 MG TAB PO SCH ×3 (08:17→21:14)
[2018-01-30] MEDS: METHIMAZOLE 5 MG TAB PO SCH (08:18)
[2018-01-30] MEDS: ASPIRIN 81 MG ECTAB PO SCH (08:18)
[2018-01-30] MEDS: LEUCOVORIN CALCIUM 5 MG TAB PO SCH (08:18)
[2018-01-30] MEDS: FLUTICASONE PROPIONATE NA SPR 16 GM BTL NAE SCH (08:19)
[2018-01-30] MEDS: AMOXICILLIN/CLAVULANATE TAB 500 MG TAB PO SCH ×2 (08:19→18:03)
[2018-01-30] MEDS: PREGABALIN 25MG CAP PO SCH ×2 (08:22→20:48)
--- NOTE | 2018-01-30 08:54 | Hospitalist Progress Note ---
Hospitalist Progress Note Date of Service Jan 30, 2018. (Merlyn Schilling PA-C) Subjective Pt evaluation today including: conversation w/ patient, physical exam, chart review, lab review, review of studies Pain: Mid thoracic pain with movement PO Intake: Poor Voiding: no voiding problems The patient was seen and examined this morning. Pt reports doing "poorly" this morning. A long discussion was held regarding her hx of medical issues in the last year. She reports he pain around her ribs is significant this morning, and has realized her lyrica was reduced to 25 mg BID, versus her outpatient regimen of 50 mg BID. Pt also c/o right sided frontal headache this morning - tylenol 1 g has not helped to alleviate the pain. She reports having recurrent c diff last in March 2017 - treated with PO vanc at that time. 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 Recurrent ischemic colitis then again in Oct 2017 and was prophylactically treated with po vanc. She has requested to take po vanc again during this hospitalization. + c/o severe abdominal pain in the low abdomen, cramping, bloating and distension. She is eating very bland, low fiber foods. Pt is not tolerating a regular diet and is hoping to speak with GI again today. Pt is wheelchair bound, and pivot/transitions to bedside commode/chair. Constitutional: + see HPI Additional Comments: Constitutional: No fever, sweats or chills Eyes: No diplopia, no worsening or blurred vision ENT: normal hearing, no trouble swallowing Respiratory: No cough, sputum, dyspnea at rest or on exertion Cardiovascular: No chest pain, tightness or palpitations Abdomen: See HPI Musculoskeletal: No joint pain, calf pain, swelling Neurologic: No weakness, numbness/tingling, or balance problems Psychiatric: No anxiety or depression Skin: No rash or itch (Merlyn Schilling PA-C) Objective Vital Signs Date Time Temp Pulse Resp B/P (MAP) Pulse Ox O2 Delivery O2 Flow Rate FiO2 01/30/18 08:20 36.3 68 22 131/74 (93) 98 Room Air 01/30/18 04:00 Room Air 01/30/18 03:39 36.3 56 16 130/72 (91) 98 01/30/18 00:18 36.7 61 16 114/56 (75) 98 01/29/18 23:59 Room Air 01/29/18 20:00 Room Air 01/29/18 19:46 37.1 63 20 125/64 (84) 96 Room Air 01/29/18 16:00 97 Room Air 01/29/18 15:27 36.7 62 22 136/78 (97) 97 Room Air 01/29/18 12:00 Room Air 01/29/18 11:55 36.6 57 20 126/71 (89) 100 Room Air (Merlyn Schilling PA-C) Physical Exam Notes: General: awake, alert, no apparent distress, lying flat in bed Head: Normocephalic, atraumatic ENT: PERRL, EOMI, no pharyngeal exudate, mucous membranes moist Chest: Clear to auscultation, on room air, no adventitious breath sounds Cardiac: Regular rate and rhythm, + systolic murmur grade III/, no JVD, normal peripheral pulses, good capillary refill Abdominal: NABS x 4 quadrants, soft, nontender to palpation, no rebound, guarding or tenderness Extremities: Normal inspection, no peripheral edema or erythema, calfs nontender to palpation Psych: Normal mood and affect Neuro: AAO x 3, no motor deficits, speech is clear, no peripheral sensory deficits (Merlyn Schilling, ELIZABETH-C) Laboratory Results Last 24 Hours Test 01/30/18 04:16 White Blood Count 8.58 K/uL Red Blood Count 3.23 M/uL Hemoglobin 10.4 g/dL Hematocrit 31.3 % Mean Corpuscular Volume 96.9 fL Mean Corpuscular Hemoglobin 32.2 pg Mean Corpuscular Hemoglobin Concent 33.2 g/dl Platelet Count 159 K/uL Mean Platelet Volume 9.8 fL Neutrophils (%) (Auto) 59.9 % Lymphocytes (%) (Auto) 25.1 % Monocytes (%) (Auto) 9.7 % Eosinophils (%) (Auto) 3.5 % Basophils (%) (Auto) 0.3 % Neutrophils # (Auto) 5.14 K/uL Lymphocytes # (Auto) 2.15 K/uL Monocytes # (Auto) 0.83 K/uL Eosinophils # (Auto) 0.30 K/uL Basophils # (Auto) 0.03 K/uL RDW Standard Deviation 47.4 fL RDW Coefficient of Variation 13.3 % Immature Granulocyte % (Auto) 1.5 % Immature Granulocyte # (Auto) 0.13 K/uL Sodium Level 142 mmol/L Potassium Level 3.3 mmol/L Chloride Level 107 mmol/L Carbon Dioxide Level 28 mmol/L Anion Gap 7.0 mmol/L Blood Urea Nitrogen 27 mg/dl Creatinine 1.24 mg/dl Est Creatinine Clear Calc Drug Dose 33.8 ml/min Estimated GFR () 46.8 Estimated GFR (Non- 40.4 BUN/Creatinine Ratio 21.5 Random Glucose 84 mg/dl Calcium Level 8.8 mg/dl Phosphorus Level 3.3 mg/dl Magnesium Level 1.5 mg/dl Total Bilirubin 0.4 mg/dl Direct Bilirubin 0.1 mg/dl Aspartate Amino Transf (AST/SGOT) 13 U/L Alanine Aminotransferase (ALT/SGPT) 15 U/L Alkaline Phosphatase 47 U/L Total Protein 5.6 gm/dl Albumin 2.9 gm/dl Lipase 190 U/L (Merlyn Schilling, PAZevC) Assessment and Plan 82 yo F with abdominal pain found to have shock secondary to ischemic colitis. PMHx includes scleroderma, Lupus, HTN, CAD, HLD, CKD stage III. Pt initially received aggressive IV fluid resuscitation without improvement in blood pressure. Eventually requiring vasopressors for blood pressure support. Ischemic colitis - Pt started on Zosyn Vanc PO w/ severe h/o C. diff, initial pressor support with levophed now titrated off - continue on augmentin 500 mg BID at this time ( started 01/29) - stool and blood cultures do not support active infection - patient is markedly anxious regarding c diff and requests to be on po vancomycin -- Will start lactobacillus tabs QID - GI on board - allow their team to make dietary recommendations- continue low fiber/lactose/bland diet at this time. - recurrent ischemic colitis - started aspirin therapy - Will consult vascular surgery in regards to possible mesenteric artery stenosis to see if this could be playing a part in ischemic colitis flares - lactic acidosis resolved Hypokalemia - Administered IV while in the ICU, still only 3.3 today, will replace orally with 40 meq. Hypotension - RESOLVED h/o CAD HTN Edema - patient has regained blood pressure, resumed her home medications 01/28: ethacrynic acid 125 mg QAM, lisinopril 10 mg HS, metoprolol tartrate 10 mg BID HLD - Continue statin therapy CORNELL on CKD stage III - resolved with volume resuscitation, pt has stable baseline Cr. 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 (Merlyn Schilling, USMAN) Supervising Note Dr. Santacruz I performed a history and physical examination on the patient. I reviewed above note and agree with it. I discussed plan with APC and patient. During my face to face encounter with the patient, I answered all of the patient's questions. Patient continues to have abd. pain with meals. Abd. on exam is soft, with no signs of acute abdomen. Will decrease meals to clear liquid diet. Awaiting input from vascular. will discuss transferring patient to med/surg in AM. (Roman Santacruz M.D.)
[2018-01-30] MEDS: POTASSIUM CHLORIDE 20 MEQ TABCR PO SCH (09:51)
[2018-01-30] MEDS: ACETAMINOPHEN 500 MG TAB PO PRN (09:54)
[2018-01-30] MEDS ORDERED: NURSING VERBAL MED ORDER ONE (11:30)
[2018-01-30] MEDS ORDERED: PREGABALIN 25MG CAP PO STA (11:33)
[2018-01-30] MEDS ORDERED: MoRPHine SULFATE 2 MG/ML CARP IV ONE (11:45)
[2018-01-30] MEDS ORDERED: KETOROLAC TROMETHAMINE 15 MG/ML VIAL IV. STA (16:04)
[2018-01-30] MEDS: LACTOBACILLUS ACIDOPHILUS (FLORANEX) TAB PO SCH ×2 (18:04→20:48)
[2018-01-30] MEDS: LISINOPRIL 10 MG TAB PO SCH (20:50)
[2018-01-30] MEDS: ATORVASTATIN 20 MG TAB PO SCH ×2 (20:50→22:35)
[2018-01-31] VITALS (7 sets, daily range): BP systolic 110–127; BP diastolic 59–72; PULSE 58–70; TEMP 36.4–37; O2SAT 97–98
[2018-01-31] MEDS: RASPBERRY SYRUP 5 ML UDP PO SCH ×5 (00:25→23:24)
[2018-01-31] MEDS: VANCOMYCIN HCL 250 MG/5 ML SOLN PO SCH ×5 (00:25→23:24)
[2018-01-31 04:43] LABS: BASO % 0.7 %; BASO ABS # 0.05 K/uL (0-0.2); EOS % 2.6 %; EOS ABS # 0.19 K/uL (0-0.5); HEMATOCRIT 32.5 % (37-47); HEMOGLOBIN 10.3 g/dL (12.0-16.0); IG# 0.18 K/uL (0.00-0.02); LYMPH % 15.4 %; LYMPH ABS # 1.12 K/uL (1.2-3.4); MEAN CELL VOLUME 97.6 fL (80-100); MEAN CORPUSCULAR HEMOGLOBIN 30.9 pg (25-34); MEAN CORPUSCULAR HGB CONC 31.7 g/dl (32-36); MONO ABS # 0.65 K/uL (0.11-0.59); NEUT % 69.8 %; NEUT ABS # 5.07 K/uL (1.4-6.5); PLATELET COUNT 136 K/uL (130-400); RED CELL DISTRIBUTION WIDTH CV 13.3 % (11.5-14.5); RED CELL DISTRIBUTION WIDTH SD 46.5 fL (36.4-46.3); WHITE BLOOD COUNT 7.26 K/uL (4.8-10.8)
[2018-01-31 05:02] LABS: ALBUMIN 2.8 gm/dl (3.4-5.0); CALCIUM 8.9 mg/dl (8.5-10.1); CREATININE 1.61 mg/dl (0.60-1.20); POTASSIUM 3.6 mmol/L (3.5-5.1)
[2018-01-31 05:19] LABS: PHOSPHORUS 4.1 mg/dl (2.5-4.9); TOTAL PROTEIN 5.7 gm/dl (6.4-8.2)
[2018-01-31] MEDS: AMOXICILLIN/CLAVULANATE TAB 500 MG TAB PO SCH ×2 (07:40→17:53)
[2018-01-31] MEDS: LACTOBACILLUS ACIDOPHILUS (FLORANEX) TAB PO SCH ×4 (07:41→21:52)
[2018-01-31] MEDS: ACETAMINOPHEN 500 MG TAB PO PRN (07:41)
[2018-01-31] MEDS: ETHACRYNIC ACID 25 MG TAB PO SCH (08:33)
[2018-01-31] MEDS: LORATADINE 10 MG TAB PO SCH (08:33)
[2018-01-31] MEDS: METHIMAZOLE 5 MG TAB PO SCH (08:33)
[2018-01-31] MEDS: LEUCOVORIN CALCIUM 5 MG TAB PO SCH (08:33)
[2018-01-31] MEDS: CALCITRIOL 0.25 MCG CAP PO SCH (08:33)
[2018-01-31] MEDS: ASPIRIN 81 MG ECTAB PO SCH (08:33)
[2018-01-31] MEDS: PANTOprazole SOD 40 MG TAB PO SCH (08:33)
[2018-01-31] MEDS: POTASSIUM CHLORIDE 20 MEQ TABCR PO SCH (08:34)
[2018-01-31] MEDS: PREGABALIN 25MG CAP PO SCH ×2 (08:34→21:49)
[2018-01-31] MEDS: FLUTICASONE PROPIONATE NA SPR 16 GM BTL NAE SCH (08:35)
[2018-01-31] MEDS: POLYETHYLENE (MIRALAX) 17 GM PACK PO SCH (08:39)
--- NOTE | 2018-01-31 10:55 | Surgery Consultation ---
Consultation Date of Service Jan 31, 2018. Chief Complaint possible ischemic colitis, possible mesenteric stenosis History of Present Illness The patient is a 82 year old female with complicated medical hx, admitted with colitis, seen in consultation today for possible ischemic colitis after mesenteric US demonstrated elevated velocities in SMA. Pt admitted d/t hypotension and CORNELL, as well as bloody diarrhea [employer]. Pt states hx of ischemic colitis x3 in past, most recently in 2011. Also hx of diverticulosis and C diff colitis which required a fecal transplant. Pt states she developed severe R sided and left sided abd pain, general weakness, and N/V prior to arrival. [place] abd pressure, so attempted to have a BM, but was uncontrollable diarrhea. This is similar to prior episodes where she was told she had ischemic colitis. Does not ambulate d/t neuropathy. Denies fever, chills, chest pain, SOB, rest pain, claudication, other complaints. Sx improved with IV fluids and medication , CKD to baseline cr of 1.7. Still having some diarrhea, but not as much. Abd US demonstrated mildly elevated velocities in SMA. Plain CT scan demonstrated no significant calcification at SMA, TEVIN, or celiac arteries. Unable to perform CTA d/t renal fxn. Vitals Vital Signs Past 12 Hours Date Time Temp Pulse Resp B/P (MAP) Pulse Ox O2 Delivery O2 Flow Rate FiO2 01/31/18 10:00 Room Air 01/31/18 08:00 36.4 70 20 119/59 (79) 98 Room Air 01/31/18 04:00 Room Air 01/31/18 03:43 36.7 69 18 125/69 (87) 97 01/31/18 00:00 Room Air 01/30/18 23:54 36.4 62 18 132/72 (92) 99 Allergies Coded Allergies: Adhesives (Verified Allergy, Severe, BLISTERING, 01/11/18) PAPER TAPE CAUSES SEVERE BLISTERING Cefuroxime (Verified Allergy, Unknown, INEFFECTIVE, 01/11/18) Ciprofloxacin (Verified Allergy, Unknown, INEFFECTIVE, 01/11/18) Erythromycin (Verified Allergy, Unknown, SEVERE VOMITING, 01/11/18) Furosemide (Verified Allergy, Unknown, HIVES, SULFA ALLERGY TO LOOP DIURETICS, 01/11/18) Hydrochlorothiazide (Verified Allergy, Unknown, HIVES, 01/11/18) Levofloxacin (Verified Allergy, Unknown, INEFFECTIVE, 01/11/18) Metoclopramide (Verified Allergy, Unknown, anxiety attacks, 01/11/18) Sulfa Antibiotics (Verified Allergy, Unknown, HIVES AND ANAPHYLAXIS, ) Metronidazole (Verified Adverse Reaction, Severe, Neuropathy, 01/11/18) Meperidine (Verified Adverse Reaction, Unknown, INEFFECTIVE FOR PT, 01/11/18 ) INAFFECTIVE FOR PATIENT Uncoded Allergies: all diuretics (Allergy, Severe, throat swells, 06/10/17) Home Medications Scheduled , 10 MG PO QID Atorvastatin (Lipitor), 20 MG PO HS Biotin (Biotin), 1,000 MCG PO QAM Calcitriol (Rocaltrol Cap), 0.25 MCG PO QAM Cholecalciferol (Vitamin D3), 3,000 UNIT PO DAILY Cyanocobalamin (Cyanocobalamin), 1 DOSE INJ [id number] Denosumab (Prolia), 60 MG INJ UD Ethacrynic Acid (Edecrin), 100 MG PO QAM Fluocinolone Acetonide (Otic) (Fluocinolone Acetonide), 5 DROPS OTL DAILY Leucovorin Calcium (Leucovorin Calcium), 5 MG PO DAILY Lisinopril (Lisinopril), 10 MG PO HS Loratadine (Claritin), 10 MG PO QAM Magnesium Oxide (Magnesium), 250 MG PO QAM Methimazole (Methimazole ), 2.5 MG PO QAM Metoprolol Tartrate (Lopressor) (Lopressor), 12.5 MG PO BID Mometasone Furoate (Nasal) (Mometasone Furoate), 1 SPRAY ROBIN DAILY Multiple Vitamins W/ Minerals (Preservision Areds 2), 1 CAP PO BID Naproxen (Aleve), 220 MG PO PRN UD Prednisone (Prednisone), 5 MG PO QAM Pregabalin (Lyrica), 25 MG PO BID Sodium Chloride (Sodium Chloride), 1 GM PO BID Scheduled PRN Acetaminophen (Tylenol), 1-2 TABS PO Q6 PRN for Pain Nitroglycerin (Nitrostat), 0.4 MG SL UD PRN for Chest Pain Peg [id number] Bicarb-Sod Ch (Golytely), 1 DOSE PO DIRECTED PRN for Constipation Polyethylene Glycol 3350 (Miralax), 17 GM PO DAILY PRN for Constipation Tramadol (Ultram), 50 MG PO Q8H PRN for Pain Problem List Medical Problems: (1) Appendectomy (2) Benign hypertension (3) C DIFF POA (4) Cholecystectomy (5) Chronic congestive heart failure (6) Colitis (7) Colonoscopy (8) Compression fracture (9) Depression (10) dextroscoliosis (11) E COLI UTI POA (12) Gastroesophageal reflux disease (13) Hyperlipidemia (14) Hysterectomy (15) orthopedic surgery (16) Osteoporosis (17) Pancreatic lesion (18) PERSONAL HISTORY OF PEPTIC ULCER DISEASE (19) Pyelonephritis (20) renal disease (21) Sepsis (22) Septic shock (23) Vertigo Surgical / Medical History Hx Cardiac Surgery: No Hx Abdominal Surgery: Yes (GB,VAGOTOMY,APPY,GASTRECTOMY) Hx Cancer Surgery: No Hx Thoracic Surgery: No Hx Orthopedic: Yes (FX R HIP) Hx Urinary Tract Surgery: Yes (BLADDER AND RECTAL REPAIR) HX Other Surgery: Yes (T&A,VAG HYSTERECTOMY,R BREAST LUMPECTOMY,SPINE SURGERIES ) Past Medical/Surgical History: Arthritis, CHF, Chronic Steroid Use, Heart Disease, High Cholesterol, Hypertension, Kidney Disease, Osteoporosis, Thyroid Disease, Other (scleroderma, lupus) Family History Cancer Gallbladder disease Heart disease Hypertension Social History Smoking Status: Never Smoker Hx Alcohol Use - Type & Amnt: No Hx Substance Use -Type & Amnt: No Review of Systems Constitutional: + malaise, No chills, No fever Skin: No change in color Eyes: No visual changes ENMT: No sore throat Respiratory: No cough, No DUMAS, No hemoptysis, No short of breath Cardiovascular: No chest pain, No palpitations, No syncope, No edema, No intermittent claudication Gastrointestinal: + abdominal pain, + constipation, + diarrhea, + nausea, + vomiting Genitourinary - Female: No dysuria, No hematuria Neurologic: No dizziness, No headache, No numbness, No tingling Physical Exam Constitutional: General Apperance: well-nourished, well-developed Level of Distress: NAD, acutely ill, chronically ill Psychiatric: Mental Status: active & alert, normal mood Orientation: to time, to place, to person Memory: recent memory normal, remote memory normal Head: normocephalic, atraumatic ENMT: normal ENT inspection, hearing grossly normal Neck: supple, trachea midline Lungs: Respiratory effort: no dyspnea Auscultation: breath sounds normal, no wheezing, no rales/crackles, no rhonchi Cardiovascular: Apical Impulse: not displaced Heart Auscultation: RRR, no rubs, no gallops Peripheral Pulses: Pulses: full and equal, in all extremities except if noted Bruits: none appreciated Carotid Pulse: normal on the left, normal on the right Brachial Pulses: normal on the left, normal on the right Radial Pulse: normal on the left, normal on the right Femoral Pulse: normal on the left, normal on the right Posterior Tibialis Pulse: decreased on the left, decreased on the right Dorsalis Pedis Pulse: decreased on the left, decreased on the right Abdomen: Bowel Sounds: normal Inspection & Palpation: soft, non-distended, RUQ tenderness, LLQ tenderness , RLQ tenderness, pertinent finding (no rebound) Musculoskeletal: normal strength (5/5 throughout), normal tone Extremities: Upper Right: no cyanosis, no edema, no varicosities Upper Left: no cyanosis, no edema, no varicosities Lower Right: no cyanosis, no edema, no varicosities Lower Left: no cyanosis, no edema, no varicosities Neurologic: Cranial Nerves: grossly intact Sensation: grossly intact Assessment and Plan ASSESSMENT and PLAN: colitis 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 No calcification noted on plain CT, however, CTA or MRA would be recommended to further eval. Pt states would not consider open surgery unless she was in a life threatening situation. After further discussion with pt, we will order noncontrast MRA to eval possible SMA stenosis and discuss findings with her after testing completed.
--- NOTE | 2018-01-31 11:08 | Hospitalist Progress Note ---
Hospitalist Progress Note Date of Service Jan 31, 2018. (Merlyn Schilling PA-C) Subjective Pt evaluation today including: conversation w/ patient, physical exam, chart review, lab review, review of studies Pain: None PO Intake: Good, tolerating clear liquid diet Voiding: no voiding problems The patient was seen and examined this morning. Patient reports feeling improved today compared to yesterday. She reports her main complaint is being abdominal bloating, distention and continues to have diarrhea. Overnight she had 4 bowel movements, and this morning had another 2. She denies any blood or any dark tarry stools. She denies any lightheadedness or dizziness. Patient reports her headache from yesterday is much improved after a dose of Toradol. She did not see any relief with morphine sulfate IV yesterday. Discussion was held regarding GI recommendations and that she can continue to her diet or advance her diet as tolerated. Discussion was held with vascular surgery, Steph Person- plans to do in MRA without contrast to evaluate mesenteric artery stenosis, the patient is not a candidate for contrast at this time due to kidney disease. Additional Comments: Constitutional: No fever, sweats or chills Eyes: No diplopia, no worsening or blurred vision, + headache improved ENT: normal hearing, no trouble swallowing Respiratory: No cough, sputum, dyspnea at rest or on exertion Cardiovascular: No chest pain, tightness or palpitations Abdomen: See HPI Musculoskeletal: No joint pain, calf pain, swelling Neurologic: No weakness, numbness/tingling, or balance problems Psychiatric: No anxiety or depression Skin: No rash or itch is (Merlyn Schilling PA-C) Objective Vital Signs Date Time Temp Pulse Resp B/P (MAP) Pulse Ox O2 Delivery O2 Flow Rate FiO2 01/31/18 10:00 Room Air 01/31/18 08:00 36.4 70 20 119/59 (79) 98 Room Air 01/31/18 04:00 Room Air 01/31/18 03:43 36.7 69 18 125/69 (87) 97 01/31/18 00:00 Room Air 01/30/18 23:54 36.4 62 18 132/72 (92) 99 01/30/18 20:54 36.9 01/30/18 20:17 37.4 76 20 138/85 (102) 97 Room Air 01/30/18 20:00 Room Air 01/30/18 16:20 36.8 67 20 129/75 (93) 98 Room Air 01/30/18 16:00 98 Room Air 01/30/18 12:00 36.5 65 20 117/61 (79) 98 Room Air 01/30/18 12:00 Room Air (Merlyn Schilling PA-C) Physical Exam Notes: General: awake, alert, no apparent distress, lying flat in bed Head: Normocephalic, atraumatic ENT: PERRL, EOMI, no pharyngeal exudate, mucous membranes moist Chest: Clear to auscultation, on room air, no adventitious breath sounds Cardiac: Regular rate and rhythm, + systolic murmur grade III/, no JVD, normal peripheral pulses, good capillary refill Abdominal: NABS x 4 quadrants, soft, nontender to palpation, no rebound, guarding or tenderness Extremities: Normal inspection, no peripheral edema or erythema, calfs nontender to palpation Psych: Normal mood and affect Neuro: AAO x 3, no motor deficits, speech is clear, no peripheral sensory deficits (Merlyn Schilling, ELIZABETH-C) Laboratory Results Last 24 Hours Test 01/31/18 04:01 White Blood Count 7.26 K/uL Red Blood Count 3.33 M/uL Hemoglobin 10.3 g/dL Hematocrit 32.5 % Mean Corpuscular Volume 97.6 fL Mean Corpuscular Hemoglobin 30.9 pg Mean Corpuscular Hemoglobin Concent 31.7 g/dl Platelet Count 136 K/uL Mean Platelet Volume 10.0 fL Neutrophils (%) (Auto) 69.8 % Lymphocytes (%) (Auto) 15.4 % Monocytes (%) (Auto) 9.0 % Eosinophils (%) (Auto) 2.6 % Basophils (%) (Auto) 0.7 % Neutrophils # (Auto) 5.07 K/uL Lymphocytes # (Auto) 1.12 K/uL Monocytes # (Auto) 0.65 K/uL Eosinophils # (Auto) 0.19 K/uL Basophils # (Auto) 0.05 K/uL RDW Standard Deviation 46.5 fL RDW Coefficient of Variation 13.3 % Immature Granulocyte % (Auto) 2.5 % Immature Granulocyte # (Auto) 0.18 K/uL Sodium Level 140 mmol/L Potassium Level 3.6 mmol/L Chloride Level 103 mmol/L Carbon Dioxide Level 27 mmol/L Anion Gap 10.0 mmol/L Blood Urea Nitrogen 34 mg/dl Creatinine 1.61 mg/dl Est Creatinine Clear Calc Drug Dose 26.1 ml/min Estimated GFR () 34.2 Estimated GFR (Non- 29.5 BUN/Creatinine Ratio 20.9 Random Glucose 85 mg/dl Calcium Level 8.9 mg/dl Phosphorus Level 4.1 mg/dl Magnesium Level 1.4 mg/dl Total Bilirubin 0.5 mg/dl Direct Bilirubin 0.1 mg/dl Aspartate Amino Transf (AST/SGOT) 12 U/L Alanine Aminotransferase (ALT/SGPT) 16 U/L Alkaline Phosphatase 52 U/L Total Protein 5.7 gm/dl Albumin 2.8 gm/dl Lipase 163 U/L (Merlyn Schilling, USMAN) Assessment and Plan 82 yo F with abdominal pain found to have shock secondary to ischemic colitis. PMHx includes scleroderma, Lupus, HTN, CAD, HLD, CKD stage III. Pt initially received aggressive IV fluid resuscitation without improvement in blood pressure. Eventually requiring vasopressors for blood pressure support. Ischemic colitis - Pt started on Zosyn and Vanc PO w/ severe h/o C. diff, initial pressor support with levophed now titrated off - continue on augmentin 500 mg BID at this time (started 01/29) - stool and blood cultures do not support active infection - patient is markedly anxious regarding c diff and requests to be on po vancomycin -- Will start lactobacillus tabs QID - GI on board - allow their team to make dietary recommendations- continue low fiber/lactose/bland diet at this time. - recurrent ischemic colitis - started aspirin therapy -Vascular surgery consult: In regards to possible mesenteric artery stenosis to see if this could be playing a part in ischemic colitis flares Appreciate recs: discussed with Tiesha Paulino: no CT a d/t low GFR, and may be poor candidate for intervention if SMA stenosis confirmed. No calcification noted on plain CT, however, CTA or MRA would be recommended to further eval. Ordered an MRA w/out contrast to assess. - lactic acidosis resolved Hypokalemia - Administered IV while in the ICU, still only 3.3 today, will replace orally with 40 meq. Hypotension - RESOLVED h/o CAD HTN Edema - patient has regained blood pressure, resumed her home medications 01/28: ethacrynic acid 125 mg QAM, lisinopril 10 mg HS, metoprolol tartrate 10 mg BID HLD - Continue statin therapy CORNELL on CKD stage III - resolved with volume resuscitation, pt has stable baseline Cr. 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 Possible discharge tomorrow, moved to [facility] today. (Merlyn Schilling, USMAN) Supervising Note Dr. Santacruz I performed a history and physical examination on the patient. I reviewed above note and agree with it. I discussed plan with APC and patient. During my face to face encounter with the patient, I answered all of the patient's questions. Will await MRA to assess for mesenteric artery stenosis. (Roman Santacruz M.D.)
[2018-01-31] MEDS: METOPROLOL TARTRATE 25 MG TAB PO SCH ×2 (11:13→21:53)
[2018-01-31] MEDS: ATORVASTATIN 20 MG TAB PO SCH (21:51)
[2018-01-31] MEDS: LISINOPRIL 10 MG TAB PO SCH (21:52)
[2018-02-01] MEDS: RASPBERRY SYRUP 5 ML UDP PO SCH ×3 (05:41→16:57)
[2018-02-01] MEDS: VANCOMYCIN HCL 250 MG/5 ML SOLN PO SCH ×3 (05:41→16:57)
[2018-02-01 07:07] LABS: CALCIUM 8.8 mg/dl (8.5-10.1); CREATININE 1.31 mg/dl (0.60-1.20); POTASSIUM 3.6 mmol/L (3.5-5.1)
[2018-02-01] MEDS: LORATADINE 10 MG TAB PO SCH (07:32)
[2018-02-01] MEDS: METOPROLOL TARTRATE 25 MG TAB PO SCH ×2 (07:32→21:00)
[2018-02-01] MEDS: CALCITRIOL 0.25 MCG CAP PO SCH (07:32)
[2018-02-01] MEDS: PANTOprazole SOD 40 MG TAB PO SCH (07:32)
[2018-02-01] MEDS: ASPIRIN 81 MG ECTAB PO SCH (07:33)
[2018-02-01] MEDS: METHIMAZOLE 5 MG TAB PO SCH (07:33)
[2018-02-01] MEDS: ETHACRYNIC ACID 25 MG TAB PO SCH (07:33)
[2018-02-01] MEDS: LACTOBACILLUS ACIDOPHILUS (FLORANEX) TAB PO SCH ×4 (07:33→20:00)
[2018-02-01] MEDS: AMOXICILLIN/CLAVULANATE TAB 500 MG TAB PO SCH ×2 (07:34→16:56)
[2018-02-01] MEDS: POTASSIUM CHLORIDE 20 MEQ TABCR PO SCH (07:34)
[2018-02-01] MEDS: LEUCOVORIN CALCIUM 5 MG TAB PO SCH (07:34)
[2018-02-01] MEDS: POLYETHYLENE (MIRALAX) 17 GM PACK PO SCH (07:35)
[2018-02-01] MEDS: FLUTICASONE PROPIONATE NA SPR 16 GM BTL NAE SCH (07:35)
[2018-02-01] MEDS: PREGABALIN 25MG CAP PO SCH ×2 (07:38→21:00)
--- NOTE | 2018-02-01 08:17 | Hospitalist Progress Note ---
Hospitalist Progress Note Date of Service Feb 01, 2018. (Merlyn Schilling PA-C) Subjective Pt evaluation today including: conversation w/ patient, physical exam, chart review, lab review, review of studies Pain: None PO Intake: Good- tolerating clear liquids Voiding: no voiding problems The patient was seen and examined this morning. Patient reports feeling well and continues to have numerous bouts of diarrhea. She reports having approximately 3 overnight into this morning. She does note that her abdominal pain is now improved nearly absent. She denies any bloating or cramping. Patient is requesting something else for her diarrhea at this point. She has only been taking Augmentin 3 days along with the p.o. Vanc as C. difficile prophylaxis since the time of admission. The patient has also been tolerating probiotic without any difficulty, and she takes these at home. She initially was placed on a regular diet but this did not seem to sit well with her bowels, therefore was decreased again to clear liquids only 2 days ago. We discussed advancing to full liquid and she is agreeable to this today. We will discuss with GI regarding other regimens with goal of improving diarrhea today. Additional Comments: Constitutional: No fever, sweats or chills Eyes: No diplopia, no worsening or blurred vision, no headache ENT: normal hearing, no trouble swallowing Respiratory: No cough, sputum, dyspnea at rest or on exertion Cardiovascular: No chest pain, tightness or palpitations Abdomen: See HPI Musculoskeletal: No joint pain, calf pain, swelling Neurologic: No weakness, numbness/tingling, or balance problems Psychiatric: No anxiety or depression Skin: No rash or itch is (Merlyn Schilling PA-C) Objective Vital Signs Date Time Temp Pulse Resp B/P (MAP) Pulse Ox O2 Delivery O2 Flow Rate FiO2 02/01/18 00:00 Room Air 01/31/18 23:13 36.8 58 20 127/67 (87) 97 Room Air 01/31/18 21:50 66 110/72 (85) 01/31/18 16:00 Room Air 01/31/18 14:35 37.0 65 18 119/69 (86) 98 Room Air 01/31/18 14:19 36.5 65 20 98 2.0 01/31/18 12:10 36.5 65 20 112/65 (81) 98 Room Air 01/31/18 10:00 Room Air (Merlyn Schilling PA-C) Physical Exam Notes: General: awake, alert, no apparent distress Head: Normocephalic, atraumatic ENT: PERRL, EOMI, no pharyngeal exudate, mucous membranes moist Chest: Clear to auscultation, on room air, no adventitious breath sounds Cardiac: Regular rate and rhythm, + systolic murmur grade III/, no JVD, normal peripheral pulses, good capillary refill Abdominal: NABS x 4 quadrants, soft, nontender to palpation, no rebound, guarding or tenderness Extremities: Normal inspection, no peripheral edema or erythema, calfs nontender to palpation Psych: Normal mood and affect Neuro: AAO x 3, no motor deficits, speech is clear, no peripheral sensory deficits (Merlyn Schilling PA-C) Laboratory Results Last 24 Hours Test 01/31/18 20:37 02/01/18 05:39 02/01/18 07:49 Bedside Glucose 78 mg/dl 84 mg/dl Sodium Level 135 mmol/L Potassium Level 3.6 mmol/L Chloride Level 99 mmol/L Carbon Dioxide Level 29 mmol/L Anion Gap 7.0 mmol/L Blood Urea Nitrogen 29 mg/dl Creatinine 1.31 mg/dl Est Creatinine Clear Calc Drug Dose 30.9 ml/min Estimated GFR () 43.8 Estimated GFR (Non- 37.8 BUN/Creatinine Ratio 22.2 Random Glucose 76 mg/dl Calcium Level 8.8 mg/dl (Merlyn Schilling PA-C) Assessment and Plan 82 yo F with abdominal pain found to have shock secondary to ischemic colitis. PMHx includes scleroderma, Lupus, HTN, CAD, HLD, CKD stage III. Pt initially received aggressive IV fluid resuscitation without improvement in blood pressure. Eventually requiring vasopressors for blood pressure support. Ischemic colitis - Pt started on Zosyn and Vanc PO w/ severe h/o C. diff, initial pressor support with levophed now titrated off - continue on augmentin 500 mg BID at this time (started 01/29) - stool and blood cultures do not support active infection - patient is markedly anxious regarding c diff and requests to be on po vancomycin -- continue lactobacillus tabs QID - GI on board - Patient continues to have diarrhea,- discussed with Elvi Alcaraz - will start her back on bentyl 10 mg TID as she was on this prior to admission ( have added this to her med rec), and will advance her diet from clears to full liquids today- continue low fiber/lactose/bland diet at this time. - started aspirin therapy - Vascular surgery consult: In regards to possible mesenteric artery stenosis to see if this could be playing a part in ischemic colitis flares Appreciate recs: Plan for MRA of the abdomen today - lactic acidosis resolved Hypokalemia - Administered IV while in the ICU, - Resolved, K+ = 3.6 today Hypotension - RESOLVED h/o CAD HTN Edema - patient has regained blood pressure, resumed her home medications 01/28: ethacrynic acid 125 mg QAM, lisinopril 10 mg HS, metoprolol tartrate 10 mg BID HLD - Continue statin therapy CORNELL on CKD stage III - resolved with volume resuscitation, pt has stable baseline Cr. 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 Need MRA of the abdomen completed and improvement in diarrhea prior to discharge. (Merlyn Schilling, USMAN) Supervising Note Dr. Santacruz I performed a history and physical examination on the patient. I reviewed above note and agree with it. I discussed plan with APC and patient. During my face to face encounter with the patient, I answered all of the patient's questions. This is a complex case, given that there is no simple answer to her pain due to her connective tissue disease and possible ischemic colitis. will continue with current management with bentyl and monitor. (Roman Santacruz M.D.)
[2018-02-01 08:58] VITALS: BP 141/81; PULSE 70; TEMP 36.9; O2SAT 93
[2018-02-01] MEDS ORDERED: DICY10CA55 PO (10:35)
[2018-02-01] MEDS ORDERED: DICYCLOMINE HCL 10 MG CAP PO ONE (11:00)
[2018-02-01 16:23] VITALS: BP 94/59; PULSE 65; TEMP 36.7; O2SAT 95
[2018-02-01] MEDS: DICYCLOMINE HCL 10 MG CAP PO SCH ×2 (16:56→21:00)
[2018-02-01] MEDS: ATORVASTATIN 20 MG TAB PO SCH (21:00)
[2018-02-01] MEDS: LISINOPRIL 10 MG TAB PO SCH (21:00)
[2018-02-01 23:13] VITALS: BP 90/52; PULSE 59; TEMP 36.9; O2SAT 95
[2018-02-02] MEDS: VANCOMYCIN HCL 250 MG/5 ML SOLN PO SCH ×5 (00:08→23:33)
[2018-02-02] MEDS: RASPBERRY SYRUP 5 ML UDP PO SCH ×5 (00:09→23:32)
[2018-02-02 04:12] VITALS: BP 106/70
[2018-02-02 07:11] VITALS: BP 103/66; PULSE 59; TEMP 36.6; O2SAT 97
[2018-02-02] MEDS: POLYETHYLENE (MIRALAX) 17 GM PACK PO SCH (07:41)
[2018-02-02] MEDS: PREGABALIN 25MG CAP PO SCH ×2 (07:46→20:48)
[2018-02-02] MEDS: LORATADINE 10 MG TAB PO SCH (07:46)
[2018-02-02] MEDS: METOPROLOL TARTRATE 25 MG TAB PO SCH ×2 (07:46→20:52)
[2018-02-02] MEDS: PANTOprazole SOD 40 MG TAB PO SCH (07:46)
[2018-02-02] MEDS: CALCITRIOL 0.25 MCG CAP PO SCH (07:46)
[2018-02-02] MEDS: AMOXICILLIN/CLAVULANATE TAB 500 MG TAB PO SCH ×2 (07:47→17:16)
[2018-02-02] MEDS: POTASSIUM CHLORIDE 20 MEQ TABCR PO SCH (07:47)
[2018-02-02] MEDS: LACTOBACILLUS ACIDOPHILUS (FLORANEX) TAB PO SCH ×4 (07:47→20:46)
[2018-02-02] MEDS: DICYCLOMINE HCL 10 MG CAP PO SCH ×3 (07:47→20:47)
[2018-02-02] MEDS: ETHACRYNIC ACID 25 MG TAB PO SCH (07:47)
[2018-02-02] MEDS: LEUCOVORIN CALCIUM 5 MG TAB PO SCH (07:47)
[2018-02-02] MEDS: ASPIRIN 81 MG ECTAB PO SCH (07:48)
[2018-02-02] MEDS: FLUTICASONE PROPIONATE NA SPR 16 GM BTL NAE SCH (07:48)
[2018-02-02] MEDS: METHIMAZOLE 5 MG TAB PO SCH (07:48)
--- NOTE | 2018-02-02 12:11 | Hospitalist Progress Note ---
Hospitalist Progress Note Date of Service Feb 02, 2018. (Merlyn Schilling PA-C) Subjective Pt evaluation today including: conversation w/ patient, physical exam, chart review, lab review, review of studies, conversation w/ baby registry sales consultant ( gastroenterology) Pain: LLQ abdominal pain PO Intake: Fair Voiding: no voiding problems The patient was seen and examined this morning. Pt reports she is "extremely discouraged today as I feels I'm not getting adequate care." Her bowels continue to be loose, and she is very sore from numerous diarrhea bouts. She tolerated full liquids for lunch yesterday and requested her diet be advanced for dinner last night, which was done. She did tolerate chicken last evening with mashed potatoes, and then had a piece of toast this morning. She has chicken salad ordered for lunch and is seen eating this without difficulty at bedside. C/o recurrent pain in the LLQ in her abdomen, however says this is not as bad as it was with solid food over the weekend. She has also requested to see a physician with gastroenterology today - GI has been updated by myself daily and discussion held with those who know the patient well. The pt feels her bowel function is too critical that she must see one today, or is requesting for discharge. Pt also adamant that her blood work be checked on a daily basis as she is fearful her electrolytes will significantly change. We had a discussion regarding our best attempts to meet her needs. She is agreeable to seeing any available GI physician today. Labs have been ordered per her request. I have also asked if she would like to see patient advocate team, and she is agreeable to this. Additional Comments: Constitutional: No fever, sweats or chills Eyes: No diplopia, no worsening or blurred vision, no headache ENT: normal hearing, no trouble swallowing Respiratory: No cough, sputum, dyspnea at rest or on exertion Cardiovascular: No chest pain, tightness or palpitations Abdomen: See HPI Musculoskeletal: No joint pain, calf pain, swelling Neurologic: No weakness, numbness/tingling, or balance problems Psychiatric: No anxiety or depression Skin: No rash or itch is (Merlyn Schilling PA-C) Objective Vital Signs Date Time Temp Pulse Resp B/P (MAP) Pulse Ox O2 Delivery O2 Flow Rate FiO2 02/02/18 08:00 Room Air 02/02/18 07:11 36.6 59 16 103/66 (78) 97 Room Air 02/02/18 04:12 106/70 (82) 02/02/18 00:00 Room Air 02/01/18 23:13 36.9 59 18 90/52 (65) 95 Room Air 02/01/18 16:23 36.7 65 18 94/59 (71) 95 Room Air 02/01/18 16:00 Room Air (Merlyn Schilling PA-C) Physical Exam Notes: General: awake, alert, no apparent distress Head: Normocephalic, atraumatic ENT: PERRL, EOMI, no pharyngeal exudate, mucous membranes moist Chest: Clear to auscultation, on room air, no adventitious breath sounds Cardiac: Regular rate and rhythm, + systolic murmur grade III/, no JVD, normal peripheral pulses, good capillary refill Abdominal: NABS x 4 quadrants, soft,minimal tenderness in the LLQ Extremities: Normal inspection, no peripheral edema or erythema Psych: Discouraged mood Neuro: AAO x 3, speech is clear, no peripheral sensory deficits (Merlyn Schilling, RAJANIC) Laboratory Results Last 24 Hours Test 02/01/18 16:48 02/01/18 17:15 02/02/18 07:32 02/02/18 12:02 Bedside Glucose 103 mg/dl 86 mg/dl Stool Occult Blood NEGATIVE (Merlyn Schilling PA-C) Assessment and Plan 82 yo F with abdominal pain found to have shock secondary to ischemic colitis. PMHx includes scleroderma, Lupus, HTN, CAD, HLD, CKD stage III. Pt initially received aggressive IV fluid resuscitation without improvement in blood pressure. Eventually requiring vasopressors for blood pressure support. Ischemic colitis - Pt started on Zosyn and Vanc PO w/ severe h/o C. diff, initial pressor support with levophed now titrated off - continue on augmentin 500 mg BID at this time (started 01/29) - stool and blood cultures do not support active infection - patient is markedly anxious regarding c diff and requests to be on po vancomycin -- continue lactobacillus tabs QID - GI on board - reconsult Dr. Braga today for increased diarrhea and abdominal pain, see HPI. - Greatly appreciate recs 1. Low Fat, FODMaps diet. 2. 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 3. Avoidance of antibiotics when possible due to hx of C-diff. 4. F/u OP appt with Dr. Bowling March 02, 2018. - cont bentyl 10 mg TID - started aspirin therapy - Vascular surgery consult: In regards to possible mesenteric artery stenosis to see if this could be playing a part in ischemic colitis flares Appreciate recs: No MRA obtained due to pt kidney function, no further workup at this time. She can have this as an outpatient after being seen/ cleared by Dr. Lim (nephro). - lactic acidosis resolved - Patient advocate contacted Hypokalemia - Administered IV while in the ICU, - Resolved, K+ = 4.2 today Hypotension - RESOLVED h/o CAD HTN Edema - patient has regained blood pressure, resumed her home medications 01/28: ethacrynic acid 125 mg QAM, lisinopril 10 mg HS, metoprolol tartrate 10 mg BID Mild hyponatremia - Na 132 today, likely secondary to continued diarrhea, fair oral intake. Has been slowly trending downward. - follow prp - if worsens will consult nephrology. HLD - Continue statin therapy CORNELL on CKD stage III - resolved with volume resuscitation, pt has stable baseline Cr. 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 GI to re-see pt today. Time spent reviewing chart, discussion with consultants, coordination of care, and face to face time with the patient includes 67 minutes. (Merlyn Schilling, USMAN) Supervising Note Dr. Santacruz I performed a history and physical examination on the patient. I reviewed above note and agree with it. I discussed plan with APC and patient. During my face to face encounter with the patient, I answered all of the patient's questions. No signifcnat improvement today. will continue to monitor her pain. No surgical intervention due to her comorbidities (Roman Santacruz M.D.)
[2018-02-02 12:27] LABS: HEMATOCRIT 35.2 % (37-47); HEMOGLOBIN 11.9 g/dL (12.0-16.0); MEAN CELL VOLUME 95.1 fL (80-100); MEAN CORPUSCULAR HEMOGLOBIN 32.2 pg (25-34); MEAN PLATELET VOLUME 9.7 fL (7.4-10.4); PLATELET COUNT 151 K/uL (130-400); RED CELL DISTRIBUTION WIDTH CV 13.8 % (11.5-14.5); RED CELL DISTRIBUTION WIDTH SD 47.7 fL (36.4-46.3); WHITE BLOOD COUNT 8.73 K/uL (4.8-10.8)
[2018-02-02 12:30] LABS: MEAN CORPUSCULAR HGB CONC 33.8 g/dl (32-36)
[2018-02-02] MEDS: ACETAMINOPHEN 500 MG TAB PO PRN (12:34)
[2018-02-02 12:47] LABS: CALCIUM 9.6 mg/dl (8.5-10.1); CREATININE 1.52 mg/dl (0.60-1.20); POTASSIUM 4.2 mmol/L (3.5-5.1)
--- NOTE | 2018-02-02 15:15 | Progress Note ---
Progress Note Date of Service Feb 02, 2018. (Tenisha Loredo,C.R.N.P.) Progress Note Ms. Phoenix is an 82 yr old female with mixed connective tissue disease, CHF, CKD , chronic back pain, chronic abdominal pain S/P distant partial gastrectomy for gastric ulcers, gastroparesis, IBS. She was admitted on 01/26 for hypotension, leukocytosis. Non contrast CT with entire colon wall thickening. Stool culture and C-diff (-). We were asked by primary services to see this pt per pt request. 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 Also addressed pancreas cyst seen on recent OP CT for which Dr. Bowling has offered EUS but pt declines. Plan: 1. Low Fat, FODMaps diet. 2. 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 3. Avoidance of antibiotics when possible due to hx of C-diff. 4. F/u OP appt with Dr. Bowling March 02, 2018. (Tenisha Loredo,C.R.N.P.) I performed a history and physical examination of the patient, including specifically on physical exam - no abdominal tenderness. I have discussed the patient's management with RODRICK Langston. Please refer to the nurse practitioner's note for the documented findings and plan of care. I had the pleasure of seeing , she is very pleasant and was happy to be seen by a GI provider. We had discussed in length about her multiple GI issues and came up with a management plan. In summary, patient with multiple chronic illnesses including CKD and extensive connective tissue disorder, Hx of C.diff requiring FMT, ? dysmotility, found with pancolitis on CT scan but clinically she has sharp LLQ abdominal pain, no rectal bleeding, altered bowel habits. My opinion is her symptoms are not typically related to chronic mesenteric ischemia which I actually doubt. I think her current LLQ abdominal pain is related to her diverticular disease, i.e SCAD or SUDD. She actually feels better when she takes Miralax and moves her bowel. She will be evaluated by the dietitian to assist in diet that is low fat, low FODMAP and at the same time high in nutrients and soft. She should avoid ABx unless needed. She will follow up with her regular GI provider as OP. Mesenteric ischemia should be further investigated by a dedicated imaging once kidney function allows and her autoimmune connective tissue disease should be aggressively treated. Off note, few clinical trials have shown some symptomatic relieve with Mesalamine in patients with symptomatic diverticulosis. (Maria Alejandra Crespo M.D.)
[2018-02-02 15:54] VITALS: Ht 154.9 cm; Wt 74.6 kg
[2018-02-02 16:11] VITALS: BP 92/60; PULSE 65; TEMP 37.5; O2SAT 91
[2018-02-02] MEDS: ATORVASTATIN 20 MG TAB PO SCH (20:47)
[2018-02-02] MEDS: LISINOPRIL 10 MG TAB PO SCH (20:52)
[2018-02-02 23:08] VITALS: BP 100/67; PULSE 62; TEMP 36.6; O2SAT 95
[2018-02-03 05:22] LABS: HEMATOCRIT 31.4 % (37-47); HEMOGLOBIN 10.5 g/dL (12.0-16.0); MEAN CELL VOLUME 95.4 fL (80-100); MEAN CORPUSCULAR HEMOGLOBIN 31.9 pg (25-34); MEAN CORPUSCULAR HGB CONC 33.4 g/dl (32-36); MEAN PLATELET VOLUME 10.2 fL (7.4-10.4); PLATELET COUNT 143 K/uL (130-400); RED CELL DISTRIBUTION WIDTH CV 13.7 % (11.5-14.5); RED CELL DISTRIBUTION WIDTH SD 47.7 fL (36.4-46.3); WHITE BLOOD COUNT 6.47 K/uL (4.8-10.8)
[2018-02-03] MEDS: RASPBERRY SYRUP 5 ML UDP PO SCH ×4 (05:37→23:26)
[2018-02-03] MEDS: VANCOMYCIN HCL 250 MG/5 ML SOLN PO SCH ×4 (05:37→23:26)
[2018-02-03 05:45] LABS: CALCIUM 8.7 mg/dl (8.5-10.1); CREATININE 1.7 mg/dl (0.60-1.20); POTASSIUM 4.1 mmol/L (3.5-5.1)
[2018-02-03] MEDS: FLUTICASONE PROPIONATE NA SPR 16 GM BTL NAE SCH (07:43)
[2018-02-03] MEDS: METHIMAZOLE 5 MG TAB PO SCH (07:43)
[2018-02-03] MEDS: ASPIRIN 81 MG ECTAB PO SCH (07:43)
[2018-02-03] MEDS: AMOXICILLIN/CLAVULANATE TAB 500 MG TAB PO SCH ×2 (07:43→17:29)
[2018-02-03] MEDS: LACTOBACILLUS ACIDOPHILUS (FLORANEX) TAB PO SCH ×4 (07:43→21:27)
[2018-02-03] MEDS: PANTOprazole SOD 40 MG TAB PO SCH (07:44)
[2018-02-03] MEDS: CALCITRIOL 0.25 MCG CAP PO SCH (07:44)
[2018-02-03] MEDS: ETHACRYNIC ACID 25 MG TAB PO SCH (07:44)
[2018-02-03] MEDS: LORATADINE 10 MG TAB PO SCH (07:44)
[2018-02-03] MEDS: LEUCOVORIN CALCIUM 5 MG TAB PO SCH (07:44)
[2018-02-03] MEDS: DICYCLOMINE HCL 10 MG CAP PO SCH ×3 (07:44→21:27)
[2018-02-03] MEDS: METOPROLOL TARTRATE 25 MG TAB PO SCH (07:44)
[2018-02-03] MEDS: POTASSIUM CHLORIDE 20 MEQ TABCR PO SCH (07:45)
[2018-02-03] MEDS: PREGABALIN 25MG CAP PO SCH ×2 (07:48→21:27)
[2018-02-03 08:04] VITALS: BP 110/74; PULSE 57; TEMP 36.5; O2SAT 100
--- NOTE | 2018-02-03 08:29 | Hospitalist Progress Note ---
Hospitalist Progress Note Date of Service Feb 03, 2018. (Merlyn Schilling PA-C) Subjective Pt evaluation today including: conversation w/ patient, physical exam, chart review, lab review, review of studies, conversation w/ customer support consultant (GI) Pain: mild abdominal pain in LLQ PO Intake: fair Voiding: no voiding problems The patient was seen and examined this morning. Pt reports overall feeling ok. She still has c/o LLQ abdominal pain since initiation of solid foods. She was also happy that she was able to speak with gastroenterology yesterday. She has started miralax today as she notes yesterday only had 1 small bowel movement, and is concerned she will become constipated. Her normal home regimen with go- lytely and miralax provide BM approximately every 5 days, and sometimes does not even pass gas. The patient reports not being back to her baseline and is requesting to stay in the hospital today to make sure the abdominal pain is tolerable. She denies any fever, chills or sweats. Additional Comments: Constitutional: No fever, sweats or chills Eyes: No diplopia, no worsening or blurred vision, no headache ENT: normal hearing, no trouble swallowing Respiratory: No cough, sputum, dyspnea at rest or on exertion Cardiovascular: No chest pain, tightness or palpitations Abdomen: See HPI Musculoskeletal: No joint pain, calf pain, swelling Neurologic: No weakness, numbness/tingling, or balance problems Psychiatric: No anxiety or depression Skin: No rash or itch is (Merlyn Schilling PA-C) Objective Vital Signs Date Time Temp Pulse Resp B/P (MAP) Pulse Ox O2 Delivery O2 Flow Rate FiO2 02/03/18 08:04 36.5 57 20 110/74 (86) 100 02/03/18 00:00 Room Air 02/02/18 23:08 36.6 62 18 100/67 (78) 95 Room Air 02/02/18 19:00 Room Air 02/02/18 16:11 37.5 65 18 92/60 (71) 91 Room Air 02/02/18 16:00 Room Air (Merlyn Schilling PA-C) Physical Exam Notes: General: awake, alert, no apparent distress Head: Normocephalic, atraumatic ENT: PERRL, EOMI, no pharyngeal exudate, mucous membranes moist Chest: Clear to auscultation, on room air, no adventitious breath sounds Cardiac: Regular rate and rhythm, + systolic murmur grade III/, no JVD, normal peripheral pulses, good capillary refill Abdominal: NABS x 4 quadrants, soft, minimal tenderness in the LLQ with deep palpation, no rebound or guarding. Extremities: Normal inspection, no peripheral edema or erythema Neuro: AAO x 3, speech is clear, no peripheral sensory deficits (Merlyn Schilling PA-C) Laboratory Results Last 24 Hours Test 02/02/18 12:19 02/03/18 04:50 02/03/18 07:41 White Blood Count 8.73 K/uL 6.47 K/uL Red Blood Count 3.70 M/uL 3.29 M/uL Hemoglobin 11.9 g/dL 10.5 g/dL Hematocrit 35.2 % 31.4 % Mean Corpuscular Volume 95.1 fL 95.4 fL Mean Corpuscular Hemoglobin 32.2 pg 31.9 pg Mean Corpuscular Hemoglobin Concent 33.8 g/dl 33.4 g/dl RDW Standard Deviation 47.7 fL 47.7 fL RDW Coefficient of Variation 13.8 % 13.7 % Platelet Count 151 K/uL 143 K/uL Mean Platelet Volume 9.7 fL 10.2 fL Sodium Level 132 mmol/L 134 mmol/L Potassium Level 4.2 mmol/L 4.1 mmol/L Chloride Level 96 mmol/L 98 mmol/L Carbon Dioxide Level 27 mmol/L 29 mmol/L Anion Gap 9.0 mmol/L 7.0 mmol/L Blood Urea Nitrogen 28 mg/dl 37 mg/dl Creatinine 1.52 mg/dl 1.70 mg/dl Est Creatinine Clear Calc Drug Dose 26.4 ml/min 23.6 ml/min Estimated GFR () 36.6 32.0 Estimated GFR (Non- 31.6 27.6 BUN/Creatinine Ratio 18.2 21.7 Random Glucose 144 mg/dl 83 mg/dl Calcium Level 9.6 mg/dl 8.7 mg/dl Bedside Glucose 85 mg/dl (Merlyn Schilling PA-C) Assessment and Plan 82 yo F with abdominal pain found to have shock secondary to ischemic colitis. PMHx includes scleroderma, Lupus, HTN, CAD, HLD, CKD stage III. Pt initially received aggressive IV fluid resuscitation without improvement in blood pressure. Eventually requiring vasopressors for blood pressure support. Ischemic colitis/septic shock initially now resolved - Pt started on Zosyn and Vanc PO w/ severe h/o C. diff, initial pressor support with levophed now titrated off - continue on augmentin 500 mg BID at this time (started 01/29) - stool and blood cultures do not support active infection - patient is markedly anxious regarding c diff and requests to be on po vancomycin -- continue lactobacillus tabs QID - GI on board - reconsult Dr. Braga today for increased diarrhea and abdominal pain, see HPI. - Greatly appreciate recs 1. Low Fat, FODMaps diet. 2. 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 3. Avoidance of antibiotics when possible due to hx of C-diff. 4. F/u OP appt with Dr. Bowling March 02, 2018. - Pt has been resumed on home regimen of miralax to prevent constipation - no diarrhea x 24 hours. Can consider immodium today to help slow bowels if this recurrs. Cholecystyramine would also be another option per discussion with Tenisha Edouard today. - cont bentyl 10 mg TID - started aspirin therapy - Vascular surgery consult: In regards to possible mesenteric artery stenosis to see if this could be playing a part in ischemic colitis flares Appreciate recs: No MRA obtained due to pt kidney function, no further workup at this time. She can have this as an outpatient after being seen/ cleared by Dr. Lim (nephro). Discussion held regarding if she truely needs this study as she would not want surgery if had poor results - will ask her to discuss more with Dr. Lim as outpatient. - lactic acidosis resolved Hypokalemia - Administered IV while in the ICU, - Resolved, K+ = 4.2 today Hypotension - RESOLVED h/o CAD HTN Edema - patient has regained blood pressure, resumed her home medications 01/28: ethacrynic acid 125 mg QAM, lisinopril 10 mg HS, metoprolol tartrate 10 mg BID Mild hyponatremia - Na 134 today, likely secondary to continued diarrhea, fair oral intake. Has been slowly trending downward. - follow prp - if worsens will consult nephrology. HLD - Continue statin therapy CORNELL on CKD stage III - resolved with volume resuscitation, pt has stable baseline Cr. 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 Likely discharge tomorrow. (Merlyn Schilling, USMAN) Supervising Note Dr. Santacruz I performed a history and physical examination on the patient. I reviewed above note and agree with it. I discussed plan with APC and patient. During my face to face encounter with the patient, I answered all of the patient's questions. Patient would like to be discharged soon. Will like to have her pain better controlled before she leaves. Gave patient information on her diet regarding FODMAP foods. (Roman Santacruz M.D.)
[2018-02-03] MEDS: POLYETHYLENE (MIRALAX) 17 GM PACK PO SCH ×2 (09:07→16:11)
--- NOTE | 2018-02-03 10:43 | Clinical Documentation Query ---
CLINICAL DOCUMENTATION QUERY 82 year old female who presents to the Emergency Room with well documented septic shock 2/2 GI source. The documentation of septic shock has fallen off the record. Without above documentation severity of illness will be lost. In your clinical opinion is this patient being managed for: ( x ) Septic Shock treated and resolved in setting of ischemic colitis ( ) Not Agree (Please state ruled out to clarify record) Please clarify and document your clinical opinion in the progress notes and discharge summary. Terms such as "probable", "suspected", "likely", "questionable", "possible", or "still to be ruled out" are acceptable. IF IN AGREEMENT, YOU MUST DOCUMENT ABOVE DIAGNOSTIC STATEMENT IN DAILY PROGRESS NOTES AND DISCHARGE SUMMARY. This document is not part of the patient's record. Thank You, Eddie Martínez, RN [phone]
[2018-02-03 15:07] VITALS: BP 90/58; PULSE 68; TEMP 37; O2SAT 96
[2018-02-03] MEDS ORDERED: NURSING VERBAL MED ORDER ONE (15:15)
[2018-02-03] MEDS: ACETAMINOPHEN 500 MG TAB PO PRN (17:30)
[2018-02-03] MEDS ORDERED: POLYETHYLENE (MIRALAX) 17 GM PACK PO SCH (21:00)
[2018-02-03 21:25] VITALS: BP 125/84; PULSE 65; O2SAT 97
[2018-02-03] MEDS: ATORVASTATIN 20 MG TAB PO SCH (21:27)
[2018-02-04 00:34] VITALS: BP 125/84; PULSE 61; TEMP 36.7; O2SAT 97
[2018-02-04] MEDS: RASPBERRY SYRUP 5 ML UDP PO SCH ×4 (05:49→23:57)
[2018-02-04] MEDS: VANCOMYCIN HCL 250 MG/5 ML SOLN PO SCH ×4 (05:49→23:57)
[2018-02-04 07:24] VITALS: BP 120/61; PULSE 58; TEMP 36.3; O2SAT 100
[2018-02-04] MEDS: LACTOBACILLUS ACIDOPHILUS (FLORANEX) TAB PO SCH ×4 (07:37→20:25)
[2018-02-04] MEDS: AMOXICILLIN/CLAVULANATE TAB 500 MG TAB PO SCH ×2 (07:38→16:33)
[2018-02-04] MEDS: LORATADINE 10 MG TAB PO SCH (08:20)
[2018-02-04] MEDS: DICYCLOMINE HCL 10 MG CAP PO SCH ×3 (08:20→20:36)
[2018-02-04] MEDS: PANTOprazole SOD 40 MG TAB PO SCH (08:20)
[2018-02-04] MEDS: METHIMAZOLE 5 MG TAB PO SCH (08:21)
[2018-02-04] MEDS: LEUCOVORIN CALCIUM 5 MG TAB PO SCH (08:21)
[2018-02-04] MEDS: CALCITRIOL 0.25 MCG CAP PO SCH (08:21)
[2018-02-04] MEDS: POTASSIUM CHLORIDE 20 MEQ TABCR PO SCH (08:22)
[2018-02-04] MEDS: ETHACRYNIC ACID 25 MG TAB PO SCH (08:23)
[2018-02-04] MEDS: FLUTICASONE PROPIONATE NA SPR 16 GM BTL NAE SCH (08:25)
[2018-02-04] MEDS: PREGABALIN 25MG CAP PO SCH ×2 (08:27→20:36)
[2018-02-04 08:41] LABS: HEMATOCRIT 34.2 % (37-47); HEMOGLOBIN 11.4 g/dL (12.0-16.0); MEAN CELL VOLUME 95.5 fL (80-100); MEAN CORPUSCULAR HEMOGLOBIN 31.8 pg (25-34); MEAN CORPUSCULAR HGB CONC 33.3 g/dl (32-36); MEAN PLATELET VOLUME 9.9 fL (7.4-10.4); PLATELET COUNT 144 K/uL (130-400); RED CELL DISTRIBUTION WIDTH CV 13.7 % (11.5-14.5); RED CELL DISTRIBUTION WIDTH SD 47.9 fL (36.4-46.3); WHITE BLOOD COUNT 7.38 K/uL (4.8-10.8)
[2018-02-04] MEDS: POLYETHYLENE (MIRALAX) 17 GM PACK PO SCH ×3 (08:57→20:37)
[2018-02-04] MEDS: ASPIRIN 81 MG ECTAB PO SCH (08:57)
[2018-02-04 08:58] LABS: CALCIUM 8.6 mg/dl (8.5-10.1); CREATININE 1.58 mg/dl (0.60-1.20); POTASSIUM 3.6 mmol/L (3.5-5.1)
[2018-02-04] MEDS ORDERED: SODIUM CHLORIDE 1 GM TAB PO ONE (10:58)
[2018-02-04 15:30] VITALS: BP 131/81; PULSE 74; TEMP 37; O2SAT 98
[2018-02-04 16:10] VITALS: O2SAT 98
[2018-02-04 20:07] VITALS: BP 145/83; PULSE 82
[2018-02-04 20:23] VITALS: BP 123/78; PULSE 78
[2018-02-04] MEDS: ATORVASTATIN 20 MG TAB PO SCH (20:35)
[2018-02-04] MEDS: SODIUM CHLORIDE 1 GM TAB PO SCH (20:36)
--- NOTE | 2018-02-04 22:39 | Progress Note ---
Subjective Date of Service: Feb 04, 2018. Subjective Pt evaluation today including: conversation w/ patient Patient reports abdominal pain has improved today. Patient denies any fever, chills, sweats. Problem List Medical Problems: (1) Abdominal pain Status: Acute (2) Abdominal pain Status: Acute (3) Acute renal failure Status: Acute (4) Back pain Status: Acute (5) Benign hypertension Status: Chronic (6) Chronic congestive heart failure Status: Chronic (7) Dehydration Status: Acute (8) Elevated lactic acid level Status: Acute (9) Gastroesophageal reflux disease Status: Chronic (10) Hyperlipidemia Status: Chronic (11) Hypotension Status: Acute (12) Hypotension Status: Acute (13) Hypotension Status: Acute (14) Ischemic colitis Status: Acute (15) Ischemic colitis Status: Acute (16) Ischemic colitis Status: Acute (17) Left sided chest pain Status: Acute (18) Rectal bleed Status: Acute (19) Rib pain Status: Acute (20) Severe sepsis with septic shock Status: Acute (21) Weakness Status: Acute Review of Systems Constitutional: No fever, sweats or chills Eyes: No diplopia, no worsening or blurred vision, no headache ENT: normal hearing, no trouble swallowing Respiratory: No cough, sputum, dyspnea at rest or on exertion Cardiovascular: No chest pain, tightness or palpitations Abdomen: See HPI Musculoskeletal: No joint pain, calf pain, swelling Neurologic: No weakness, numbness/tingling, or balance problems Psychiatric: No anxiety or depression Skin: No rash or itch is All Other Systems: Reviewed and Negative Objective Vital Signs Date Time Temp Pulse Resp B/P (MAP) Pulse Ox O2 Delivery O2 Flow Rate FiO2 02/04/18 20:23 78 123/78 (93) 02/04/18 20:07 82 145/83 (103) 02/04/18 16:10 98 Room Air 02/04/18 15:30 37.0 74 18 131/81 (98) 98 Room Air 02/04/18 07:45 Room Air 02/04/18 07:24 36.3 58 20 120/61 (80) 100 Room Air 02/04/18 00:34 36.7 61 20 125/84 (98) 97 Room Air 02/03/18 23:25 Room Air Physical Exam Comments: General: awake, alert, no apparent distress Head: Normocephalic, atraumatic ENT: PERRL, EOMI, no pharyngeal exudate, mucous membranes moist Chest: Clear to auscultation, on room air, no adventitious breath sounds Cardiac: Regular rate and rhythm, + systolic murmur grade III/, no JVD, normal peripheral pulses, good capillary refill Abdominal: NABS x 4 quadrants, soft, minimal tenderness in the LLQ with deep palpation, no rebound or guarding. Extremities: Normal inspection, no peripheral edema or erythema Neuro: AAO x 3, speech is clear, no peripheral sensory deficits Laboratory Results Last 24 Hours Test 02/04/18 07:48 02/04/18 08:31 02/04/18 11:39 Bedside Glucose 66 mg/dl 84 mg/dl White Blood Count 7.38 K/uL Red Blood Count 3.58 M/uL Hemoglobin 11.4 g/dL Hematocrit 34.2 % Mean Corpuscular Volume 95.5 fL Mean Corpuscular Hemoglobin 31.8 pg Mean Corpuscular Hemoglobin Concent 33.3 g/dl RDW Standard Deviation 47.9 fL RDW Coefficient of Variation 13.7 % Platelet Count 144 K/uL Mean Platelet Volume 9.9 fL Sodium Level 128 mmol/L Potassium Level 3.6 mmol/L Chloride Level 93 mmol/L Carbon Dioxide Level 27 mmol/L Anion Gap 9.0 mmol/L Blood Urea Nitrogen 40 mg/dl Creatinine 1.58 mg/dl Est Creatinine Clear Calc Drug Dose 25.4 ml/min Estimated GFR () 34.9 Estimated GFR (Non- 30.2 BUN/Creatinine Ratio 25.0 Random Glucose 154 mg/dl Calcium Level 8.6 mg/dl Assessment and Plan 82 yo F with abdominal pain found to have shock secondary to ischemic colitis. PMHx includes scleroderma, Lupus, HTN, CAD, HLD, CKD stage III. Pt initially received aggressive IV fluid resuscitation without improvement in blood pressure. Eventually requiring vasopressors for blood pressure support. Ischemic colitis/septic shock initially now resolved -pain gradually improving. - Pt started on Zosyn and Vanc PO w/ severe h/o C. diff, initial pressor support with levophed now titrated off - continue on augmentin 500 mg BID at this time (started 01/29) - stool and blood cultures do not support active infection - patient is markedly anxious regarding c diff and requests to be on po vancomycin -- continue lactobacillus tabs QID - GI on board - reconsult Dr. Braga today for increased diarrhea and abdominal pain, see HPI. - Greatly appreciate recs 1. Low Fat, FODMaps diet. 2. 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 3. Avoidance of antibiotics when possible due to hx of C-diff. 4. F/u OP appt with Dr. Bowling March 02, 2018. - Pt has been resumed on home regimen of miralax to prevent constipation - no diarrhea x 24 hours. Can consider immodium today to help slow bowels if this recurrs. Cholecystyramine would also be another option per discussion with Tenisha Edouard today. - cont bentyl 10 mg TID - started aspirin therapy - Vascular surgery consult: In regards to possible mesenteric artery stenosis to see if this could be playing a part in ischemic colitis flares Appreciate recs: No MRA obtained due to pt kidney function, no further workup at this time. She can have this as an outpatient after being seen/ cleared by Dr. Lim (nephro). Discussion held regarding if she truely needs this study as she would not want surgery if had poor results - will ask her to discuss more with Dr. Lim as outpatient. - lactic acidosis resolved Hypokalemia - Administered IV while in the ICU, - Resolved, Hypotension - RESOLVED h/o CAD HTN Edema -BP improved, however, patient does not require dose of her home meds today. Will hold for now and monitr overnight. If bp increases will restart home meds. Mild hyponatremia - Na 134 today, likely secondary to continued diarrhea, fair oral intake. Has been slowly trending downward. - follow prp - if worsens will consult nephrology. HLD - Continue statin therapy CORNELL on CKD stage III - resolved with volume resuscitation, pt has stable baseline Cr. 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 Likely discharge tomorrow.
[2018-02-05] VITALS: BP 113/73; PULSE 64; TEMP 36.6; O2SAT 99
[2018-02-05] MEDS: VANCOMYCIN HCL 250 MG/5 ML SOLN PO SCH ×2 (05:54→11:19)
[2018-02-05] MEDS: RASPBERRY SYRUP 5 ML UDP PO SCH ×2 (05:55→11:19)
[2018-02-05 06:31] LABS: HEMATOCRIT 33.4 % (37-47); HEMOGLOBIN 11.2 g/dL (12.0-16.0); MEAN CELL VOLUME 94.6 fL (80-100); MEAN CORPUSCULAR HEMOGLOBIN 31.7 pg (25-34); MEAN CORPUSCULAR HGB CONC 33.5 g/dl (32-36); MEAN PLATELET VOLUME 10.1 fL (7.4-10.4); PLATELET COUNT 161 K/uL (130-400); RED CELL DISTRIBUTION WIDTH CV 13.4 % (11.5-14.5); RED CELL DISTRIBUTION WIDTH SD 46.2 fL (36.4-46.3); WHITE BLOOD COUNT 7.15 K/uL (4.8-10.8)
[2018-02-05 07:14] LABS: CREATININE 1.26 mg/dl (0.60-1.20); POTASSIUM 3.8 mmol/L (3.5-5.1)
[2018-02-05 08:10] VITALS: BP 101/63; PULSE 75; TEMP 37; O2SAT 100
[2018-02-05] MEDS: POLYETHYLENE (MIRALAX) 17 GM PACK PO SCH (09:00)
[2018-02-05] MEDS: ASPIRIN 81 MG ECTAB PO SCH (09:03)
[2018-02-05] MEDS: PREGABALIN 25MG CAP PO SCH (09:03)
[2018-02-05] MEDS: AMOXICILLIN/CLAVULANATE TAB 500 MG TAB PO SCH (09:03)
[2018-02-05] MEDS: ETHACRYNIC ACID 25 MG TAB PO SCH (09:04)
[2018-02-05] MEDS: CALCITRIOL 0.25 MCG CAP PO SCH (09:04)
[2018-02-05] MEDS: METHIMAZOLE 5 MG TAB PO SCH (09:04)
[2018-02-05] MEDS: PANTOprazole SOD 40 MG TAB PO SCH (09:04)
[2018-02-05] MEDS: LACTOBACILLUS ACIDOPHILUS (FLORANEX) TAB PO SCH ×2 (09:05→11:19)
[2018-02-05] MEDS: SODIUM CHLORIDE 1 GM TAB PO SCH (09:05)
[2018-02-05] MEDS: POTASSIUM CHLORIDE 20 MEQ TABCR PO SCH (09:05)
[2018-02-05] MEDS: DICYCLOMINE HCL 10 MG CAP PO SCH ×2 (09:05→14:00)
[2018-02-05] MEDS: LEUCOVORIN CALCIUM 5 MG TAB PO SCH (09:06)
[2018-02-05] MEDS: LORATADINE 10 MG TAB PO SCH (09:11)
[2018-02-05] MEDS: FLUTICASONE PROPIONATE NA SPR 16 GM BTL NAE SCH (09:11)
--- NOTE | 2018-02-05 13:04 | Discharge Instructions ---
Discharge Instructions Date of Service Feb 05, 2018. Admission Reason for Admission: Septic Shock Discharge Discharge Diagnosis / Problem: Colitis Flair Discharge Goals Goal(s): Decrease discomfort, Improve function Activity Recommendations Activity Limitations: resume your previous activity . Instructions / Follow-Up Instructions / Follow-Up acid filler [facility]: Follow up appointment info added to the DC instructions - "Please, follow up in Dr. Mariano's office with Jessi Bean on TuesdayFebruary 08 at 1:00 pm. *If you need to change this appointment, call their office at [phone]. Please, follow up at [facility] in the [facility] with Tenisha MENSAH on TuesdayFebruary 17 at 1:15 pm (arrive 1:00 pm). *If you need to change this appointment, call the office at [phone]." Will stop antibiotics on discharge. Holding blood pressure medicine as Blood pressure has been controlled without blood pressure medicine. Will continue to monitor. Recommend LOW FODMAP diet. Current Hospital Diet Patient's current hospital diet: Low Lactose Diet, Low Fiber Diet Discharge Diet Recommended Diet: Low Fiber Diet, Low Fat Diet (LOW LACTOSE) Pending Studies Studies pending at discharge: no Medical Emergencies . Who to Call and When: Medical Emergencies: If at any time you feel your situation is an emergency, please call 911 immediately. . Non-Emergent Contact Non-Emergency issues call your: Primary Care Provider Call Non-Emergent contact if: your pain is worsening . . "Provider Documentation" section prepared by Roman Santacruz. .
[2018-02-05 13:39] VITALS: BP 101/63; PULSE 75; TEMP 37; O2SAT 100
--- NOTE | 2018-02-12 21:25 | Discharge Summary ---
Discharge Summary Date of Service Feb 05, 2018. Discharge Summary Admission Date: Jan 26, 2018 at 05:01 Discharge Date: Feb 05, 2018 Discharge Disposition: Home with services Principal Diagnosis: Ischemic colitis/septic shock Problems/Secondary Diagnoses: (1) Benign hypertension Status: Chronic (2) Chronic congestive heart failure Status: Chronic (3) Gastroesophageal reflux disease Status: Chronic (4) Hyperlipidemia Status: Chronic Immunizations: Have You Had Influenza Vaccine: Yes Influenza Vaccine Date: Jul 28, 2012 History of Tetanus Vaccine?: Yes Tetanus Immunization Date: March 27, 2009 History of Pneumococcal: Yes Pneumococcal Date: March 27, 2009 History of Hepatitis B Vaccine: No Consultations: Gastroenterology/Vascular surgery Medication Reconciliation Continued Medications: Acetaminophen (Tylenol) 500 Mg Tab 1-2 TABS PO Q6 PRN for Pain, TAB Atorvastatin (Lipitor) 20 Mg Tab 20 MG PO HS Biotin (Biotin) 1,000 Mcg Tab 1000 MCG PO QAM Calcitriol (Rocaltrol Cap) 0.25 Mcg Cap 0.25 MCG PO QAM Cholecalciferol (Vitamin D3) 1,000 Unit Tab 3000 UNIT PO DAILY Cyanocobalamin (Cyanocobalamin) 1,000 Mcg/Ml Inj 1 DOSE INJ [id number] Denosumab (Prolia) 60 Mg/Ml Benita 60 MG INJ UD EVERY 6 MONTHS Dicyclomine Hcl (Bentyl) 10 Mg Cap 1 CAP PO TID for 30 Days, #9030 CAP 1 Refill () 10 MG PO QID Ethacrynic Acid (Edecrin) 25 Mg Tab 100 MG PO QAM Fluocinolone Acetonide (Otic) (Fluocinolone Acetonide) 0.01 % Oil 5 DROPS OTL DAILY Leucovorin Calcium (Leucovorin Calcium) 5 Mg Tab 5 MG PO DAILY Loratadine (Claritin) 10 Mg Tab 10 MG PO QAM Magnesium Oxide (Magnesium) 250 Mg Tab 250 MG PO QAM Methimazole (Methimazole ) 5 Mg Tab 2.5 MG PO QAM 1/2 TABLET DOSE Mometasone Furoate (Nasal) (Mometasone Furoate) 50 Mcg/Act Spr 1 SPRAY ROBIN DAILY Multiple Vitamins W/ Minerals (Preservision Areds 2) 1 Cap Cap 1 CAP PO BID Naproxen (Aleve) 220 Mg Tab 220 MG PO PRN UD, TAB Nitroglycerin (Nitrostat) 0.4 Mg/1 Tab Subl 0.4 MG SL UD PRN for Chest Pain for 30 Days, #30 Peg 0580-Eja-Emm Bicarb-Sod Ch (Golytely) 1 Benita Benita 1 DOSE PO DIRECTED PRN for Constipation Polyethylene Glycol 3350 (Miralax) 1 Pow Pow 17 GM PO DAILY PRN for Constipation, #255 GM Prednisone (Prednisone) 5 Mg Tab 5 MG PO QAM Pregabalin (Lyrica) 25 Mg Cap 25 MG PO BID, CAP Sodium Chloride (Sodium Chloride) 1 Gm Tab 1 GM PO BID Tramadol (Ultram) 50 Mg Tab 50 MG PO Q8H PRN for Pain, TAB Discontinued Medications: Lisinopril (Lisinopril) 10 Mg Tab 10 MG PO HS Metoprolol Tartrate (Lopressor) (Lopressor) 25 Mg Tab 12.5 MG PO BID 1/2 TABLET DOSE Discharge Exam Review of Systems Constitutional: No fever, sweats or chills Eyes: No diplopia, no worsening or blurred vision, no headache ENT: normal hearing, no trouble swallowing Respiratory: No cough, sputum, dyspnea at rest or on exertion Cardiovascular: No chest pain, tightness or palpitations Abdomen: See HPI Musculoskeletal: No joint pain, calf pain, swelling Neurologic: No weakness, numbness/tingling, or balance problems Psychiatric: No anxiety or depression Skin: No rash or itch is All Other Systems: Reviewed and Negative Physical Exam Comments: General: awake, alert, no apparent distress Head: Normocephalic, atraumatic ENT: PERRL, EOMI, no pharyngeal exudate, mucous membranes moist Chest: Clear to auscultation, on room air, no adventitious breath sounds Cardiac: Regular rate and rhythm, + systolic murmur grade III/, no JVD, normal peripheral pulses, good capillary refill Abdominal: NABS x 4 quadrants, soft, no tenderness on exam, no rebound or guarding. Extremities: Normal inspection, no peripheral edema or erythema Neuro: AAO x 3, speech is clear, no peripheral sensory deficits Hospital Course 82 yo F with abdominal pain found to have shock secondary to ischemic colitis. PMHx includes scleroderma, Lupus, HTN, CAD, HLD, CKD stage III. Pt initially received aggressive IV fluid resuscitation without improvement in blood pressure. Eventually requiring vasopressors for blood pressure support. Ischemic colitis/septic shock initially now resolved -pain gradually imrpoved during hospital stay, today is asymptomatic. - Pt started on Zosyn and Vanc PO w/ severe h/o C. diff, initial pressor support with levophed now titrated off - continue on augmentin 500 mg BID at this time (started 01/29) - stool and blood cultures do not support active infection - patient is markedly anxious regarding c diff and requests to be on po vancomycin -- continue lactobacillus tabs QID - GI on board - reconsult Dr. Braga today for increased diarrhea and abdominal pain, see HPI. - Greatly appreciate recs 1. Low Fat, FODMaps diet. 2. 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 3. Avoidance of antibiotics when possible due to hx of C-diff. 4. F/u OP appt with Dr. Bowling March 02, 2018. - Pt has been resumed on home regimen of miralax to prevent constipation - no diarrhea x 24 hours. Can consider immodium today to help slow bowels if this recurrs. Cholecystyramine would also be another option per discussion with Tenisha Edouard today. - cont bentyl 10 mg TID - started aspirin therapy - Vascular surgery consult: In regards to possible mesenteric artery stenosis to see if this could be playing a part in ischemic colitis flares Appreciate recs: No MRA obtained due to pt kidney function, no further workup at this time. She can have this as an outpatient after being seen/ cleared by Dr. Lim (nephro). Discussion held regarding if she truely needs this study as she would not want surgery if had poor results - will ask her to discuss more with Dr. Lim as outpatient. - lactic acidosis resolved -FODMAPS diet instructions were given to patient. Hypokalemia - Administered IV while in the ICU, - Resolved, Hypotension - RESOLVED h/o CAD HTN Edema -BP improved, however, patient does not require dose of her home over past 2 days. Will hold for now and defer to PCP. Holding Beta kay and bess inhibitor Mild hyponatremia - Na 134 today, likely secondary to continued diarrhea, fair oral intake. Has been slowly trending downward. - follow prp - if worsens will consult nephrology. HLD - Continue statin therapy CORNELL on CKD stage III - resolved with volume resuscitation, pt has stable baseline Cr. 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 Total Time Spent: Greater than 30 minutes This includes examination of the patient, discharge planning, medication reconciliation, and communication with other providers. Discharge Instructions Please refer to the electronic Patient Visit Report (Discharge Instructions) for additional information. Follow-Up As per discharge instructions Additional Copies To RV. Mariano MD
== END 2018-02-05 14:32 | disposition home health service (06) | DRG 871 ==
LOC: EDBD 02:55 → C.EDB 02:56 → UNDOADMIN 05:01 → C.MSICU 05:01 → ENRESERV 05:34 → C.2E 01-27 11:18 → ENRESERV 01-31 12:16 → C.MS2W 01-31 14:23
PROVIDERS: ADMIT Hospitalist; ATTEND Internal Medicine Sports Medicine
DX: A41.9 Sepsis, unspecified organism (principal); K55.9 Vascular disorder of intestine, unspecified; R65.21 Severe sepsis with septic shock; I50.9 Heart failure, unspecified; N17.9 Acute kidney failure, unspecified; D68.62 Lupus anticoagulant syndrome; E27.3 Drug-induced adrenocortical insufficiency; I13.0 Hypertensive heart and chronic kidney disease with heart failure and stage 1 through stage 4 chronic kidney disease, or unspecified chronic kidney disease; K21.9 Gastro-esophageal reflux disease without esophagitis; M81.0 Age-related osteoporosis without current pathological fracture; Z88.1 Allergy status to other antibiotic agents; I95.9 Hypotension, unspecified; N18.3 Chronic kidney disease, stage 3 (moderate); E78.5 Hyperlipidemia, unspecified; G62.9 Polyneuropathy, unspecified; E03.9 Hypothyroidism, unspecified; Z88.8 Allergy status to other drugs, medicaments and biological substances; Z88.2 Allergy status to sulfonamides; F32.9 Major depressive disorder, single episode, unspecified; M34.9 Systemic sclerosis, unspecified; E87.6 Hypokalemia; T38.0X5A Adverse effect of glucocorticoids and synthetic analogues, initial encounter; Y92.019 Unspecified place in single-family (private) house as the place of occurrence of the external cause

== ENCOUNTER → 2018-02-08 | Outpatient (CLI) | payer BC ==
[~2018-02-08] MED LIST changes: -CEFD1CAP14 PO; +DICY10CA55 PO; -LISI-461 PO; -METO25TA56 PO; -VANC1CAP3 PO
[2018-02-08 14:58] LABS: BASO % 0.2 %; BASO ABS # 0.02 K/uL (0-0.2); EOS ABS # 0.12 K/uL (0-0.5); HEMATOCRIT 35.9 % (37-47); HEMOGLOBIN 11.8 g/dL (12.0-16.0); IG# 0.13 K/uL (0.00-0.02); LYMPH % 12.8 %; MEAN CELL VOLUME 95.7 fL (80-100); MEAN CORPUSCULAR HEMOGLOBIN 31.5 pg (25-34); MEAN CORPUSCULAR HGB CONC 32.9 g/dl (32-36); MEAN PLATELET VOLUME 10.3 fL (7.4-10.4); MONO % 5.1 %; NEUT % 79.8 %; NEUT ABS # 9.39 K/uL (1.4-6.5); PLATELET COUNT 236 K/uL (130-400); RED CELL DISTRIBUTION WIDTH CV 13.2 % (11.5-14.5); RED CELL DISTRIBUTION WIDTH SD 46.2 fL (36.4-46.3); WHITE BLOOD COUNT 11.76 K/uL (4.8-10.8)
[2018-02-08 15:34] LABS: ALBUMIN 3.7 gm/dl (3.4-5.0); ALT/SGPT 20 U/L (12-78); AST/SGOT 19 U/L (15-37); BLOOD UREA NITROGEN 46 mg/dl (7-18); CALCIUM 9.4 mg/dl (8.5-10.1); CARBON DIOXIDE 27 mmol/L (21-32); CREATININE 1.39 mg/dl (0.60-1.20); GLUCOSE 116 mg/dl (70-99); POTASSIUM 3.2 mmol/L (3.5-5.1); SODIUM 135 mmol/L (136-145)
[2018-02-08 15:37] LABS: ALKALINE PHOSPHATASE 85 U/L (45-117); TOTAL PROTEIN 7.3 gm/dl (6.4-8.2)
[2018-02-09 06:23] LABS: HEMOGLOBIN A1C 5.3 % (4.5-5.6)
== END | disposition home or self-care (01) ==
LOC: C.LAB1850 13:56
PROVIDERS: ATTEND Physician Assistant
DX: Z00.00 Encounter for general adult medical examination without abnormal findings (principal); A41.9 Sepsis, unspecified organism; E53.8 Deficiency of other specified B group vitamins

== ENCOUNTER → 2018-02-13 | Outpatient (CLI) | payer BC ==
[2018-02-13 15:41] LABS: ALBUMIN 3.2 gm/dl (3.4-5.0); ALT/SGPT 17 U/L (12-78); AST/SGOT 13 U/L (15-37); BLOOD UREA NITROGEN 61 mg/dl (7-18); CALCIUM 9.6 mg/dl (8.5-10.1); CARBON DIOXIDE 30 mmol/L (21-32); CREATININE 2.02 mg/dl (0.60-1.20); GLUCOSE 79 mg/dl (70-99); SODIUM 131 mmol/L (136-145)
[2018-02-13 15:44] LABS: ALKALINE PHOSPHATASE 73 U/L (45-117)
--- NOTE | 2018-02-22 14:11 | CODING QUERY NO DIAGNOSIS ---
TREATMENT RENDERED WITHOUT A DIAGNOSIS To promote full compliance with coding requirements relating to patient care, physician participation is requested in all cases of pattern drum maker uncertainty. Please assist us with providing a diagnosis/symptom for the test(s) below: A diagnosis/symptom was not documented on your Order. A valid diagnosis/symptom is required to bill all insurances. Please remember that we are unable to code a diagnosis of rule out, probable, possible, questionable, or suspected. Tests that require a diagnosis: DOS: 02/13/18 * CMP DIAGNOSIS: Provider Signature: Date: Thank you Julissa Rivera [employer] Once completed, please kindly fax back to [phone] For questions please call [phone]
== END | disposition home or self-care (01) ==
LOC: C.LABSPEC 14:15
PROVIDERS: ATTEND Internal Medicine
DX: K52.9 Noninfective gastroenteritis and colitis, unspecified (principal); D64.9 Anemia, unspecified; E05.90 Thyrotoxicosis, unspecified without thyrotoxic crisis or storm

== ENCOUNTER → 2018-02-22 | Outpatient (CLI) | payer BC ==
[2018-02-22 16:10] LABS: BLOOD UREA NITROGEN 51 mg/dl (7-18); CALCIUM 9.2 mg/dl (8.5-10.1); CARBON DIOXIDE 30 mmol/L (21-32); GLUCOSE 75 mg/dl (70-99); POTASSIUM 4.1 mmol/L (3.5-5.1); SODIUM 135 mmol/L (136-145)
== END | disposition home or self-care (01) ==
LOC: C.LABSPEC 15:50
PROVIDERS: ATTEND Internal Medicine
DX: E53.8 Deficiency of other specified B group vitamins (principal); I13.0 Hypertensive heart and chronic kidney disease with heart failure and stage 1 through stage 4 chronic kidney disease, or unspecified chronic kidney disease; I50.9 Heart failure, unspecified; N18.4 Chronic kidney disease, stage 4 (severe)

== ENCOUNTER → 2018-02-23 | Outpatient (CLI) | payer BC ==
[2018-02-23 13:55] LABS: HEMATOCRIT 33.5 % (37-47); HEMOGLOBIN 10.8 g/dL (12.0-16.0); MEAN CELL VOLUME 96.5 fL (80-100); MEAN CORPUSCULAR HEMOGLOBIN 31.1 pg (25-34); MEAN CORPUSCULAR HGB CONC 32.2 g/dl (32-36); MEAN PLATELET VOLUME 9.9 fL (7.4-10.4); PLATELET COUNT 227 K/uL (130-400); RED CELL DISTRIBUTION WIDTH CV 13.4 % (11.5-14.5); WHITE BLOOD COUNT 8.42 K/uL (4.8-10.8)
== END | disposition home or self-care (01) ==
LOC: C.LABSPEC 13:35
PROVIDERS: ATTEND Internal Medicine
DX: E53.8 Deficiency of other specified B group vitamins (principal); I13.0 Hypertensive heart and chronic kidney disease with heart failure and stage 1 through stage 4 chronic kidney disease, or unspecified chronic kidney disease; I50.9 Heart failure, unspecified; N18.4 Chronic kidney disease, stage 4 (severe)

== ENCOUNTER → 2018-02-27 | Outpatient (CLI) | payer BC ==
[2018-02-27 13:17] LABS: BASO % 0.6 %; BASO ABS # 0.06 K/uL (0-0.2); EOS % 3.2 %; EOS ABS # 0.33 K/uL (0-0.5); HEMATOCRIT 34.6 % (37-47); HEMOGLOBIN 11.2 g/dL (12.0-16.0); IG# 0.11 K/uL (0.00-0.02); LYMPH % 21.5 %; LYMPH ABS # 2.22 K/uL (1.2-3.4); MEAN CELL VOLUME 96.4 fL (80-100); MEAN CORPUSCULAR HEMOGLOBIN 31.2 pg (25-34); MEAN CORPUSCULAR HGB CONC 32.4 g/dl (32-36); MEAN PLATELET VOLUME 10.3 fL (7.4-10.4); MONO % 8.3 %; MONO ABS # 0.86 K/uL (0.11-0.59); NEUT % 65.3 %; NEUT ABS # 6.76 K/uL (1.4-6.5); PLATELET COUNT 214 K/uL (130-400); RED CELL DISTRIBUTION WIDTH CV 13.3 % (11.5-14.5); RED CELL DISTRIBUTION WIDTH SD 46.1 fL (36.4-46.3); WHITE BLOOD COUNT 10.34 K/uL (4.8-10.8)
[2018-02-27 13:56] LABS: ALBUMIN 3.4 gm/dl (3.4-5.0); ALT/SGPT 24 U/L (12-78); AST/SGOT 21 U/L (15-37); BLOOD UREA NITROGEN 54 mg/dl (7-18); CALCIUM 9.3 mg/dl (8.5-10.1); CARBON DIOXIDE 28 mmol/L (21-32); CREATININE 1.73 mg/dl (0.60-1.20); GLUCOSE 75 mg/dl (70-99); SODIUM 135 mmol/L (136-145)
[2018-02-27 13:59] LABS: ALKALINE PHOSPHATASE 88 U/L (45-117); TOTAL PROTEIN 6.8 gm/dl (6.4-8.2)
== END | disposition home or self-care (01) ==
LOC: C.LAB1850 12:12
PROVIDERS: ATTEND Internal Medicine
DX: D64.9 Anemia, unspecified (principal); K52.9 Noninfective gastroenteritis and colitis, unspecified; K55.1 Chronic vascular disorders of intestine; R39.9 Unspecified symptoms and signs involving the genitourinary system